=== PATIENT | female | born 1950 | race Caucasian/White ===

== ENCOUNTER → 2018-02-07 14:52 | Outpatient (CLI) | payer MEDICARE, SELFPAY ==
--- NOTE | 2018-02-07 15:03 | RAD_ITS ---
STUDY: X-RAY - ABDOMEN/PELVIS REASON FOR EXAM: Female, 67 years old. Kidney stones. TECHNIQUE: Two AP supine views of the abdomen and pelvis. Patient's bra is visible. COMPARISON: Radiographs of the abdomen dated November 06, 2017. FINDINGS: Normal visualized lung bases. There is an unremarkable bowel gas pattern. There is no demonstrated free abdominal air. There is no obvious organomegaly, mass, dilated bowel or pathologic calcifications. Normal soft tissue structures. There are degenerative changes of both hips. There is mild curvature of lumbar spine convexity towards the right. RAD/Abdomen Single View IMPRESSION: No radiographic evidence of acute intra-abdominal disease. Electronically Signed: Gloria Mclean MD at 7:35 EDT , Service support ,
[2018-02-07 15:46] LABS: Anion Gap 4 (5-15); BUN 15 mg/dL (7-18); BUN/Creat Ratio 21.9 RATIO (10-20); Calcium,Total 9.5 mg/dL (8.5-10.1); Chloride 106 mmol/L (98-107); Creatinine, Serum 0.68 mg/dL (0.55-1.02); EST Glomerular Filtration Rate 90 mL/min (>60); Est Glom Filt Rate - Afr Amer 109 mL/min (>60); Glucose 88 mg/dL (74-106); Potassium 3.7 mmol/L (3.5-5.1); Sodium Level 142 mmol/L (136-145)
== END ==
PROVIDERS: Family Provider Family Medicine Geriatric Medicine; PCP Family Medicine Geriatric Medicine; Visit Provider Urology
DX: Z87.442 Personal history of urinary calculi (principal)
CPT/HCPCS: 36415; 74018; 80048

== ENCOUNTER → 2018-03-14 12:15 | Outpatient (CLI) | payer MEDICARE, SELFPAY ==
--- NOTE | 2018-03-14 12:17 | BI_ITS ---
MAMMOGRAPHY - BILATERAL SCREENING REASON FOR EXAM: Female, 67 years old. Routine annual screening examination. PERTINENT HISTORY: Mother with breast cancer. TECHNIQUE: Digital bilateral breast david (3D mammographic acquisition) in the CC and MLO projections. 2-D mediolateral oblique (MLO) and craniocaudad (CC) views of both breasts were obtained. CAD: Full Field Digital Mammography with Computer Added Detection was performed. COMPARISON: Comparison is made with prior study dated August 12, 2015 and August 20, 2015. FINDINGS: Breast Composition: There are scattered areas of fibroglandular density. There are no dominant masses or suspicious calcifications. No other significant abnormalities are identified. There has been no significant change since the prior study. BI/SCREENING MAMM (CAD), BILAT IMPRESSION: Stable bilateral screening mammogram. Yearly follow-up mammogram recommended. (A) ASSESSMENT CATEGORY: BIRADS Category 1: Negative. A letter regarding these results will be sent to the patient by the facility within 30 days. Approximately 10% of breast cancers are not detected by mammography. A normal mammogram should not delay biopsy of a clinically suspicious abnormality. [id number] Electronically Signed: Kale Peralta MD at 13:22 EDT Tel [phone], Service support ,
--- NOTE | 2018-03-14 12:20 | BD_ITS ---
STUDY: DUAL ENERGY X-RAY ABSORPTIOMETRY / DXA REASON FOR EXAM: Female, 67 years old. Early menopause. Loss of height. TECHNIQUE: Bone Mineral Density (BMD) measurements of lumbar spine and bilateral hips were obtained. COMPARISON: Comparison is made with prior study dated July 12, 2011. FINDINGS: Lumbar Spine (L1-L4): g/cm2 (1.023) / T-score (-1.3) / Z-score (0.4) Findings are suggestive of osteopenia with a moderate fracture risk. Increased kyphosis. Left Femur Total: g/cm2 (0.733) / T-score (-2.2) / Z-score (-0.7) Left Femoral Neck: g/cm2 (0.722) / T-score (-2.3) / Z-score (-0.6) Right Femur Total: g/cm2 (0.724) / T-score (-2.3) / Z-score (-0.8) Right Femoral Neck: g/cm2 (0.75 to) / T-score (-2.1) / Z-score (-0.4) The T-Scores on the most recent prior examination were: Lumbar Spine (L1-L4): There has been improvement of bone density since the previous examination. Left Femur Total: which represents a worsening of 0.7%. Right Femur Total: which represents a worsening of 2.6%. BD/Dexa Bone Density Study IMPRESSION: The patient is considered osteopenic as outlined below according to World [employer] Organization (WHO) criteria with a moderate fracture risk. There has been worsening of bone density since the previous examination. Reference Information: The T-score is the number of standard deviations above or below the standard which is normal for young adults at their peak bone mineral density. The World Health Organization (WHO) interprets the T-scores as follows: Above -1 Normal bone density Between -1 and -2.5 Osteopenia Equal to / or below -2.5 Osteoporosis As a practical clinical guideline, osteopenia may be graded as follows: Mild -1 through -1.5 Moderate -1.6 through -2.0 Severe -2.1 through -2.4 The Z-score is the number of standard deviations above or below age-matched controls. A Z-score of less than -1.5 would be considered abnormal. References: 1. NIH Osteoporosis and Related Bone Diseases http://www.osteo.org 2. International Society for Clinical Densitometry http://www.iscd.org 3. National Osteoporosis Foundation http://www.nof.org Electronically Signed: Kale Peralta MD at 13:58 EDT Tel [phone], Service support ,
== END ==
PROVIDERS: Family Provider Family Medicine Geriatric Medicine; PCP Family Medicine Geriatric Medicine; Visit Provider Family Medicine Geriatric Medicine
DX: Z12.31 Encounter for screening mammogram for malignant neoplasm of breast (principal); Z78.0 Asymptomatic menopausal state; M85.80 Other specified disorders of bone density and structure, unspecified site
CPT/HCPCS: 77063; 77067; 77080

== ENCOUNTER → 2018-03-21 16:23 | Outpatient (CLI) | payer MEDICARE, SELFPAY ==
[2018-03-21 16:53] LABS: Absolute Lymphocyte Count 1.72 X10^3/ul (0.83-4.51); Absolute Neutrophil Count 2.7 X10^3/uL (2.0-7.7); Basophil# 0.01 X10^3/uL; Basophil% 0.2 % (0-1); Hemoglobin 12.9 g/dl (12.0-15.0); Lymphocyte # 1.72 X10^3/ul (4.0); Lymphocyte % 34.7 % (19-41); Mean Corp Hgb Conc 32.3 g/gl (32-36); Mean Corpuscular Hgb 31.3 pg (27.0-32.0); Mean Corpuscular Volume 97.1 fL (81-99); Mean Platelet Vol. 10.9 fl (6.2-12.0); Monocyte# 0.36 X10^3/uL; Monocyte% 7.3 % (0-10); Neutrophil # 2.67 X10^3/uL (2.7-7.7); Neutrophil % 53.8 % (47-70); Platelet Count 228 K/mm3 (150-450); RBC Distribution Width CV 13.3 % (11.6-14.6); RBC Distribution Width SD 46.1 fl (35.1-43.9); Red Blood Count 4.12 M/mm3 (4.2-5.4)
[2018-03-21 16:54] LABS: POSITIVE COUNT NO; POSITIVE DIFFERENTIAL NO; POSITIVE MORPHOLOGY NO
[2018-03-21 17:56] LABS: AST(SGOT) 20 U/L (15-37); Alanine Aminotransfer ALT/SGPT 27 U/L (13-56); Albumin, Serum 3.5 g/dL (3.2-5.0); Alkaline Phosphatase 105 U/L (45-117); Anion Gap 5 (5-15); BUN 14 mg/dL (7-18); BUN/Creat Ratio 21.1 RATIO (10-20); Calcium,Total 9.4 mg/dL (8.5-10.1); Chloride 108 mmol/L (98-107); Creatinine, Serum 0.66 mg/dL (0.55-1.02); EST Glomerular Filtration Rate 94 mL/min (>60); Est Glom Filt Rate - Afr Amer 113 mL/min (>60); Globulin 3.4 g/dL (2.2-4.2); Glucose 89 mg/dL (74-106); Potassium 3.9 mmol/L (3.5-5.1); Protein, Total 6.9 g/dL (6.4-8.2); Sodium Level 140 mmol/L (136-145); Thyroid Stim Hormone (TSH) 3.72 uIU/mL (0.358-3.74)
[2018-03-22 10:25] LABS: Vitamin D,25 Hydroxy 24.3 ng/mL (29.95-100.01)
== END ==
PROVIDERS: Family Provider Family Medicine Geriatric Medicine; PCP Family Medicine Geriatric Medicine; Visit Provider Family Medicine Geriatric Medicine
DX: I10 Essential (primary) hypertension (principal); E55.9 Vitamin D deficiency, unspecified
CPT/HCPCS: 36415; 80053; 82306; 84443; 85025

== ENCOUNTER → 2018-04-23 15:11 | Outpatient (CLI) | payer MEDICARE, SELFPAY ==
[2018-04-23 16:28] LABS: Absolute Lymphocyte Count 1.62 X10^3/ul (0.83-4.51); Absolute Neutrophil Count 3.6 X10^3/uL (2.0-7.7); Basophil# 0.01 X10^3/uL; Basophil% 0.2 % (0-1); Eosinophil# 0.12 X10^3/uL; Eosinophils% 2.1 % (0-5); Hemoglobin 14.7 g/dl (12.0-15.0); Lymphocyte # 1.62 X10^3/ul (4.0); Lymphocyte % 28.4 % (19-41); Mean Corp Hgb Conc 32.7 g/gl (32-36); Mean Corpuscular Hgb 31.9 pg (27.0-32.0); Mean Corpuscular Volume 97.6 fL (81-99); Mean Platelet Vol. 10.8 fl (6.2-12.0); Monocyte# 0.39 X10^3/uL; Monocyte% 6.8 % (0-10); Neutrophil # 3.56 X10^3/uL (2.7-7.7); Neutrophil % 62.3 % (47-70); POSITIVE COUNT NO; POSITIVE DIFFERENTIAL NO; POSITIVE MORPHOLOGY NO; Platelet Count 258 K/mm3 (150-450); RBC Distribution Width CV 13.7 % (11.6-14.6); Red Blood Count 4.61 M/mm3 (4.2-5.4); White Blood Count 5.7 K/mm3 (4.4-11.0)
[2018-04-23 16:49] LABS: Anion Gap 8 (5-15); BUN 16 mg/dL (7-18); BUN/Creat Ratio 18.9 RATIO (10-20); Calcium,Total 9.6 mg/dL (8.5-10.1); Chloride 103 mmol/L (98-107); Creatinine, Serum 0.84 mg/dL (0.55-1.02); EST Glomerular Filtration Rate 71 mL/min (>60); Est Glom Filt Rate - Afr Amer 86 mL/min (>60); Glucose 86 mg/dL (74-106); Potassium 3.9 mmol/L (3.5-5.1); Sodium Level 141 mmol/L (136-145)
== END ==
PROVIDERS: Family Provider Family Medicine Geriatric Medicine; PCP Family Medicine Geriatric Medicine; Visit Provider Family Medicine Geriatric Medicine
DX: I50.9 Heart failure, unspecified (principal); N39.0 Urinary tract infection, site not specified
CPT/HCPCS: 36415; 80048; 85025; 87077; 87086; 87088

== ENCOUNTER → 2018-04-23 18:14 | Outpatient (CLI) | payer MEDICARE, SELFPAY ==
--- NOTE | 2018-04-23 18:20 | RAD_ITS ---
STUDY: X-RAY - ABDOMEN/PELVIS REASON FOR EXAM: Female, 67 years old. Abdominal pain. TECHNIQUE: Four AP supine views of the abdomen and pelvis. COMPARISON: Two AP supine views of the abdomen and pelvis February 07, 2018. FINDINGS: Normal visualized lung bases. There is a nonspecific pattern of gas in nondistended segments of small bowel and colon. There is no demonstrated free abdominal air. The visualized liver, spleen and kidneys are grossly normal in size and morphology. There are calcified phleboliths in the pelvis. There are multilevel degenerative changes and a minor S-shaped scoliosis of the visualized lumbar spine. There are degenerative arthroses of the bilateral sacroiliac joints. RAD/Abd Inc Decub and/or Erect IMPRESSION: 1. Nonspecific bowel gas pattern. No free gas. 2. Minor S-shaped scoliosis of the lumbar spine, as well as degenerative changes of the spine and sacroiliac joints. Electronically Signed: Osmani Jasso MD at 19:22 EDT , Service support ,
== END ==
PROVIDERS: Family Provider Family Medicine Geriatric Medicine; PCP Family Medicine Geriatric Medicine; Visit Provider Family Medicine Geriatric Medicine
DX: R10.9 Unspecified abdominal pain (principal); I50.9 Heart failure, unspecified; N39.0 Urinary tract infection, site not specified
CPT/HCPCS: 36415; 74019; 80048; 85025; 87077; 87086; 87088; 87186

== ENCOUNTER → 2018-09-13 13:01 | Outpatient (CLI) | payer MEDICARE, SELFPAY | PROVIDERS: Family Provider Family Medicine Geriatric Medicine; PCP Family Medicine Geriatric Medicine; Referring Provider Family Medicine Geriatric Medicine; Visit Provider Family Medicine Geriatric Medicine | DX: R50.9 Fever, unspecified (principal) | CPT/HCPCS: 87633 ==

== ENCOUNTER → 2018-09-26 14:25 | Outpatient (CLI) | payer MEDICARE, SELFPAY ==
[2018-09-26 17:45] LABS: Absolute Lymphocyte Count 1.69 X10^3/ul (0.83-4.51); Absolute Neutrophil Count 4.8 X10^3/uL (2.0-7.7); Basophil# 0.02 X10^3/uL; Basophil% 0.3 % (0-1); Eosinophil# 0.18 X10^3/uL; Eosinophils% 2.4 % (0-5); Hematocrit 41.8 % (37-47); Hemoglobin 13.3 g/dl (12.0-15.0); Lymphocyte # 1.69 X10^3/ul (4.0); Mean Corp Hgb Conc 31.8 g/gl (32-36); Mean Corpuscular Hgb 31.5 pg (27.0-32.0); Mean Corpuscular Volume 99.1 fL (81-99); Mean Platelet Vol. 10.4 fl (6.2-12.0); Monocyte# 0.63 X10^3/uL; Monocyte% 8.6 % (0-10); Neutrophil # 4.83 X10^3/uL (2.7-7.7); Neutrophil % 65.6 % (47-70); Platelet Count 257 K/mm3 (150-450); RBC Distribution Width CV 12.9 % (11.6-14.6); RBC Distribution Width SD 46.7 fl (35.1-43.9); Red Blood Count 4.22 M/mm3 (4.2-5.4); White Blood Count 7.4 K/mm3 (4.4-11.0)
[2018-09-26 17:46] LABS: POSITIVE COUNT NO; POSITIVE DIFFERENTIAL NO; POSITIVE MORPHOLOGY NO
[2018-09-26 18:07] LABS: ALB/GLOB Ratio 1.1 RATIO (0.9-2.4); AST(SGOT) 17 U/L (15-37); Alanine Aminotransfer ALT/SGPT 24 U/L (13-56); Albumin, Serum 3.4 g/dL (3.2-5.0); Alkaline Phosphatase 98 U/L (45-117); Anion Gap 7 (5-15); BUN 19 mg/dL (7-18); BUN/Creat Ratio 26.5 RATIO (10-20); Calcium,Total 8.6 mg/dL (8.5-10.1); Chloride 106 mmol/L (98-107); Creatinine, Serum 0.72 mg/dL (0.55-1.02); EST Glomerular Filtration Rate 86 mL/min (>60); Est Glom Filt Rate - Afr Amer 103 mL/min (>60); Glucose 82 mg/dL (74-106); Potassium 3.7 mmol/L (3.5-5.1); Protein, Total 6.4 g/dL (6.4-8.2); Sodium Level 139 mmol/L (136-145); Thyroid Stim Hormone (TSH) 6.18 uIU/mL (0.358-3.74)
--- OUTSIDE RECORDS SUMMARY | 2018-11-21 20:02 | XMS RPT_ITS ---
:1950 Author Organization [place] Support Name Relationship Address Phone BUE Unavailable [address] [facility] [address] GERARD MCRAE Unavailable [address] + [place] [address] JOHN YATES Unavailable [address] + [place] [address] BUE Unavailable [address] + [address] [place] [address] GERARD MCRAE Unavailable [address] + [place] [address] JOHN YATES Unavailable [address] + [place] [address] BUE Unavailable [address] + [address] [place] [address] GERARD MCRAE Unavailable [address] + [place] [address] JOHN YATES Unavailable [address] + [place] [address] BUE Unavailable [address] + [address] [place] [address] GERARD MCRAE Unavailable [address] + [place] [address] CLIFTON YATES Unavailable [address] + [place] [address] BUE Unavailable [address] + [address] [facility] [address] GERARD MCRAE Unavailable [address] + [place] [address] CLIFTON YATES Unavailable [address] + [place] [address] BUE Unavailable [address] + [address] [place] [address] THOR, GERARD Unavailable [address] + [place] [address] CLIFTON YATES Unavailable [address] + [place] [address] BUE Unavailable [address] + [address] [place] [address] THOR, GERARD Unavailable [address] + [place] [address] CLIFTON YATES Unavailable [address] + [place] [address] BUE Unavailable [address] + [address] [place] [address] THOR, GERARD Unavailable [address] + [place] [address] CLIFTON YATES Unavailable [address] + [place] [address] BUE Unavailable [address] + [address] [place] [address] THOR, GERARD Unavailable [address] + [place] [address] CLIFTON YATES Unavailable [address] + [place] [address] BUE Unavailable [address] + [address] [place] [address] THOR, GERARD Unavailable [address] + [place] [address] CLIFTON YATES Unavailable [address] + [place] [address] BUE Unavailable [address] + [address] [place] [address] THOR GERARD Unavailable [address] + [place] [address] CLIFTON YATES Unavailable [address] + [place] [address] Care Team Providers Name Role Phone Kris Girish Winter Attending Unavailable Ishan, Olivier Chi Primary Care Unavailable KrisGirish Referring Unavailable Kris, Gómez Attending Unavailable Ishan, Olivier Chi Primary Care Unavailable Kris, Gómez Attending Unavailable Kris, Gómez Referring Unavailable Ishan, Olivier Chi Primary Care Unavailable Ishan, Olivier Chi Attending Unavailable Ishan, Olivier Chi Primary Care Unavailable Ishan, Olivier Chi Attending Unavailable Ishan, Olivier Chi Primary Care Unavailable Ishan, Olivier Chi Attending Unavailable Ishan, Olivier Chi Primary Care Unavailable Ishan, Olivier Chi Attending Unavailable Ishan, Olivier Chi Primary Care Unavailable Sondra Bhatia Attending Unavailable Moodispaw, Claude Referring Unavailable Ishan, Olivier Chi Attending Unavailable Ishan, Olivier Chi Referring Unavailable Ishan, Olivier Chi Primary Care Unavailable Ishan, Olivier Chi Attending Unavailable Ishan, Olivier Chi Primary Care Unavailable Claude Good Referring Unavailable Ishan, Olivier Chi Primary Care Unavailable Brandie, Jr Consulting Unavailable Brandie, Jr Admitting Unavailable Lori Avery Attending Unavailable Mario Marie D.O. Consulting Unavailable Claude Good Consulting Unavailable PROBLEMS PROBLEMS DATE TYPE CONDITION / CODE ATTENDING STATUS SOURCE 09/13/2018 Unknown R50.9 - Fever, Ishan, Olivier Chi Active [place] unspecified / Community R50.9(ICD-10) Hospital Repository 07/31/2018 Unknown I48.0 - Paroxysmal Bhatia, Active [place] atrial Sondra Ayers [facility] fibrillation / Hospital I48.0(ICD-10) Repository 07/31/2018 Unknown 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, Active [place] bundle-branch Sondra Ayers [facility] block, unspecified Hospital / I44.7(ICD-10) Repository 04/23/2018 Unknown I50.9 - Heart Ishan, Oliiver Chi Active [place] failure, Community unspecified / Hospital I50.9(ICD-10) Repository 03/14/2018 Unknown Z12.31 - Encounter Ishan, Olivier Chi Active [place] for screening Community mammogram for Hospital malignant neoplasm Repository of breast / Z12.31(ICD-10) 03/14/2018 Unknown Z78.0 - Ishan, Olivier Chi Active [place] Asymptomatic Community menopausal state / Hospital Z78.0(ICD-10) Repository 11/02/2017 Unknown Z87.442 - Personal Kris, Girish Active [place] history of urinary [place] Community calculi / Hospital Z87.442(ICD-10) Repository 11/16/2017 Unknown N13.6 - Sementi, Active [place] Pyonephrosis / Lori [facility] N13.6(ICD-10) Hospital Repository PROCEDURES PROCEDURES No Procedure Records FoundRESULTS RESULTS CBC W/DIFF, AUTOMATED Collected: 09/26/2018 Status: F Source: [place] 2:28 PM [facility] REPOSITORY TYPE CODE TESTS RESULT OUT OF RANGE REFERENCE UNITS LAB L100.1000 4.4-11.0 K/mm3 Normal WBC 7.4 LAB L100.1200 4.2-5.4 M/mm3 Normal RBC 4.22 LAB L100.1300 12.0-15.0 g/dl Normal HGB 13.3 LAB L100.1400 37-47 % Normal HCT 41.8 LAB L100.1500 81-99 fL High MCV 99.1 LAB L100.1600 27.0-32.0 pg Normal MCH 31.5 LAB L100.1700 32-36 g/gl Low MCHC 31.8 LAB L100.1810 11.6-14.6 % Normal RDW CV 12.9 LAB L100.1820 35.1-43.9 fl High RDW SD 46.7 LAB L100.1900 150-450 K/mm3 Normal PLT 257 LAB L100.2000 6.2-12.0 fl Normal MPV 10.4 LAB L100.2100 47-70 % Normal NEUT% 65.6 LAB L100.2200 19-41 % Normal LY% 23.0 LAB L100.2300 0-10 % Normal MONO% 8.6 LAB L100.2400 0-5 % Normal EO% 2.4 LAB L100.2500 0-1 % Normal BASO% 0.3 LAB L100.2550 0.0-0.9 % Normal IM GRAN % 0.100 Result Comment: IG% - Immature Granulocytes (promyelocytes, myelocytes and metamyelocytes) > 1% indicates that a LEFT SHIFT is Present. LAB L100.2620 2.0-7.7 X10 3/uL Normal Absolute Neut 4.8 LAB L100.2720 0.83-4.51 X10 3/ul Normal Absolute Lymph 1.69 Performed By: #### L100.0100 #### [facility] [address] [place], [address] VITAMIN D,25 HYDROXY Collected: 09/26/2018 Status: F Source: [place] 2:28 PM [facility] REPOSITORY TYPE CODE TESTS RESULT OUT OF REFERENCE UNITS RANGE LAB L506.1000 29.95-100.01 ng/mL Low Vitamin D 24.0 25-OH Result Comment: Vitamin D 25(OH) Status Range Deficiency <20 ng/mL (50nmol/L) Insuffciency 20 - 30 ng/mL (50 - 75 nmol/L) Sufficiency 30 - 100 ng/mL (75 - 250 nmol/L) Toxicity >100 ng/mL (>250 nmol/L) Performed By: #### L506.1000 #### [facility] [address] [facility] [place], [address] COMPREHENSIVE METABOLIC Collected: 09/26/2018 Status: F Source: [facility] 2:28 PM [facility] REPOSITORY TYPE CODE TESTS RESULT OUT OF RANGE REFERENCE UNITS LAB L501.0100 74-106 mg/dL Normal GLU 82 Result Comment: Please note revised GLUCOSE reference range effective 2017. LAB L501.1000 7-18 mg/dL High BUN 19 LAB L501.1100 0.55-1.02 mg/dL Normal CREAT,SERUM 0.72 Result Comment: The validity of the calculated GFR AND GFRAA in patients over 70 years has not been determined. Clinical correlation is essential. LAB L501.1110 >60 mL/min Normal EST GFR 86 Result Comment: Non- GFR Calc LAB L501.1115 >60 mL/min Normal EST GFR - AA 103 Result Comment: GFR Calc LAB L501.1300 10-20 RATIO High BUN/CRE 26.5 LAB L501.1500 6.4-8.2 g/dL T Normal PROT 6.4 LAB L501.1800 3.2-5.0 g/dL Normal ALB 3.4 LAB L501.1950 2.2-4.2 g/dL Normal GLOB 3.0 LAB L501.2000 0.9-2.4 RATIO Normal A/G 1.1 LAB L501.2200 8.5-10.1 mg/dL CA Normal 8.6 LAB L501.4100 15-37 U/L Normal AST 17 LAB L501.4305 45-117 U/L Normal ALK P 98 LAB L501.4405 13-56 U/L Normal ALT 24 LAB L501.4600 0.20-1.00 mg/dL T Normal BILI 0.40 LAB L501.5300 136-145 mmol/L NA Normal 139 LAB L501.5600 3.5-5.1 mmol/L K Normal 3.7 LAB L501.5900 98-107 mmol/L CL Normal 106 LAB L501.6100 21.0-32.0 mmol/L Normal CO2 26.0 LAB L501.6200 5-15 Normal GAP 7 Performed By: #### L500.4050, L501.9520 #### [facility] [address] [place], [place], [id number] THYROID STIM HORMONE Collected: 09/26/2018 Status: F Source: [place] (TSH) 2:28 PM [facility] REPOSITORY TYPE CODE TESTS RESULT OUT OF RANGE REFERENCE UNITS LAB L501.9520 0.358-3.74 uIU/mL High TSH 6.18 Performed By: #### L500.4050, L501.9520 #### [facility] [address] [place], [place], [address] Observed: 09/13/2018 Status: F Source: [place] RESPIRATORY PANEL 1:12 PM [facility] MOLECULAR REPOSITORY RP PANEL ADENOVIRUS Not Detected HUMAN METAPHNEUMO Not Detected INFLUENZA A Not Detected INFLUENZA A (SUBTYPE H1) Not Detected INFLUENZA A (SUBTYPE H3) Not Detected INFLUENZA B Not Detected PARAINFLUENZA 1 Not Detected PARAINFLUENZA 2 Not Detected PARAINFLUENZA 3 Not Detected PARAINFLUENZA 4 Not Detected RHINOVIRUS Not Detected RSV A Not Detected RSV B Not Detected NAAT METHOD Testing was performed using nucleic acid amplification Performed By: #### M100.638 #### [facility] [address] [place], [place], [id number] CARDIOLOGY VISIT Observed: 07/31/2018 Status: F Source: [place] REPORT 2:27 PM [facility] REPOSITORY [facility] [address] [place] [address] OFFICE VISIT Date of Service: 07/31/18 MR#: [id number] Acct: [id number] Name: AYDE YATES Rep #: [id number] : 1950 Provider: Sondra Bhatia Age/Sex: 68/F Location: [facility] Status: Signed HPI HPI Details: AYDE YATES, is a 68 F who presents to the office today for a cardiovascular follow-up. She has a history of paroxysmal atrial fibrillation. From a cardiac standpoint, patient is doing well. She does not have any chest discomfort/heaviness/tightness. Her exercise tolerance is stable for her age. She does not have any worsening symptoms of shortness of breath. She does not have any orthopnea. She denies PND. She does not have any symptoms of congestive heart failure. She does occasionally have palpitations, these do not last long. She does not have any lightheadedness or dizziness. She does not have any near-syncope or syncope. She does not have any lower extremity edema. She does not have any symptoms of claudication. 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 Accompanied by: None Is patient in pain?: No Allergies latex Allergy (Verified 07/31/18 13:43) Rash adhesive Adverse Reaction (Verified 07/31/18 13:43) Rash Medications Aspirin [Aspirin, Baby] 81 mg PO DAILY@0800 11/08/13 [History Confirmed 07/31/18] Levothyroxine [Synthroid] 112 mcg PO DAILY 11/08/13 [History Confirmed 07/31/18] Paroxetine HCl [Paxil] 20 mg PO QHS 12/05/13 [History Confirmed 07/31/18] diltiazem CD 120 mg capsule,extended release 24 hr 120 mg PO QDAY #90 cap 07/31/18 [Rx Confirmed 07/31/18] flecainide 100 mg tablet 100 mg PO BID #180 tab 07/31/18 [Rx Confirmed 07/31/18] PFSH Medical History Atrial fibrillation (Chronic) H/O: hysterectomy (Resolved) Left bundle branch block (Chronic) Mitral valve regurgitation (Chronic) Hypotension (Chronic) History of kidney stones (Resolved) Surgical History Hx of cholecystectomy (Resolved) H/O: section (Resolved) Hx of knee surgery (Resolved) Hx of foot surgery (Resolved) History of tonsillectomy (Resolved) History of lithotripsy (Resolved 10/2017) Family History Mother Hypertension Cancer Brother Colon cancer Sister Hypertension Daughter CAD (coronary artery disease) Social History Smoking Status: Former smoker how long ago did patient quit smokin years ago alcohol intake: current alcohol intake frequency: a few times a month caffeine: Yes Type: coffee Number of servings: 2 ROS Const Const: Negative for weakness, fatigue, fever(s) or headache(s) Eyes Eyes: Negative for blind spots, loss of peripheral vision or transient loss of vision ENT ENT: Negative for headache(s), dizziness, tinnitus or Nosebleed/epistaxis Cardio Chest Pain: No Palpitations: Yes Edema: None Muscle aches with walking: None Resp Respiratory: Negative for SOB with activity, SOB at rest, SOB orthopnea\SOB lying down or Cough GI GI: Negative nausea, vomiting, heartburn or vomiting blood/hematemesis : Negative for hematuria Musc Musc: Negative for muscle aches/ myalgia Neuro Neuro: Negative for weakness, headache(s), dizziness, near syncope, syncope, lightheadedness or orthostatic symptoms Kirby Hematologic/Lymphatic: Negative for easy bleeding Endo Endo: Negative for fatigue Cardiology Exam Const Appearance: cooperative, no acute distress and well developed Orientation: alert, awake and oriented x3 Head Head: normocephalic and atraumatic Mouth: moist mucous membranes Eyes General: appearance normal, both eyes and all related structures Conjunctivae: conjunctivae normal Pupils: PERRL EOM: EOM intact bilaterally Neck Neck: normal visual inspection, no lymphadenopathy and no JVD Carotids: Negative bruit Neck Mass: Negative Neck mass Chest Chest inspection: normal inspection of the chest and symmetric chest movement Auscultation: Bilateral: Clear to Auscultation Cardio Palpation: normal PMI Rate: regular rate Rhythm: regular rhythm Heart sounds: S1 normal and S2 normal; negative rub, gallop or murmur GI GI: normal to inspection, soft, no hepatosplenomegaly and bowel sounds present; negative tender Neuro General: alert, awake, oriented x3, CN's II-XI intact bilaterally and moves all extremities Extremities Pulses: Normal: Right Posterior Tibial Pulse, Left Posterior Tibial Pulse, Right Radial Pulse, Left Radial Pulse Lower Extremity Edema: None: Bilateral wearing bilateral leg braces on ankles Psych Psychological: normal affect Supplemental Info Echocardiogram in 2013 demonstrates an ejection fraction of 60%. Mild concentric LVH. Left atrium mildly enlarged. Mild diffuse mitral valve thickening. Mild mitral valve prolapse. Mild mitral and tricuspid insufficiency. RVSP 31 mmHg. Assessment AND Plan 1. Paroxysmal atrial fibrillation I48.0 Plan Patient has not had any symptomatic recurrence. She will continue with her flecainide and her diltiazem. She will continue with her aspirin. If she has any further recurrence may need to reconsider anticoagulation. 2. Left bundle branch block I44.7 Plan Stable, will continue to monitor. Plan Detail Other Medications Refilled: Additional Comments Thank you for allowing us to participate in patient's plan of care, if you have any questions please do not hesitate to call. This note was generated using a voice recognition system and there may be incorrect words, spelling or punctuation errors that were not noted when reviewing the office note prior to saving. Follow Up 1 Year (PFM) Coding Level of Care Code Off vis,est,level 3 Diagnoses Paroxysmal atrial fibrillation I48.0 Atrial fibrillation type: paroxysmal Left bundle branch block I44.7 Coding Level of Care Code Off vis,est,level 3 Diagnoses Paroxysmal atrial fibrillation I48.0 Atrial fibrillation type: paroxysmal Left bundle branch block I44.7 07/31/18 1427 <Electronically signed by Sondra CHAND> Date Sondra CHAND Cosigner Signature: Date (if applicable) CC: ABD INC DECUB Observed: 04/23/2018 Status: F Source: [place] AND/OR ERECT 6:17 PM [facility] REPOSITORY [facility] Imaging Services [address] [place] [address] Abd Inc Decub and/or Erect MR#: [id number] Acct: [id number] Name: AYDE YATES Rep #: [id number] : 1950 F 67 From: Jm Jasso MD PCP: Olivier Olmstead MD, Chi Status: REG CLI Study: Abd Inc Decub and/or Erect Date of Exam: 04/23/18 Exam# [id number] Ordering Dr: Olivier Olmstead MD STUDY: X-RAY - ABDOMEN/PELVIS REASON FOR EXAM: Female, 67 years old. Abdominal pain. TECHNIQUE: Four AP supine views of the abdomen and pelvis. COMPARISON: Two AP supine views of the abdomen and pelvis February 07, 2018. FINDINGS: Normal visualized lung bases. There is a nonspecific pattern of gas in nondistended segments of small bowel and colon. There is no demonstrated free abdominal air. The visualized liver, spleen and kidneys are grossly normal in size and morphology. There are calcified phleboliths in the pelvis. There are multilevel degenerative changes and a minor S-shaped scoliosis of the visualized lumbar spine. There are degenerative arthroses of the bilateral sacroiliac joints. RAD/Abd Inc Decub and/or Erect IMPRESSION: 1. Nonspecific bowel gas pattern. No free gas. 2. Minor S-shaped scoliosis of the lumbar spine, as well as degenerative changes of the spine and sacroiliac joints. Electronically Signed: Osmani Jasso MD at 19:22 EDT , Service support , CC: Olivier Olmstead MD Clinical Lab Technologist: Signed CBC W/DIFF, AUTOMATED Collected: 04/23/2018 Status: F Source: [place] 3:12 PM [facility] REPOSITORY TYPE CODE TESTS RESULT OUT OF RANGE REFERENCE UNITS LAB L100.1000 4.4-11.0 K/mm3 Normal WBC 5.7 LAB L100.1200 4.2-5.4 M/mm3 Normal RBC 4.61 LAB L100.1300 12.0-15.0 g/dl Normal HGB 14.7 LAB L100.1400 37-47 % Normal HCT 45.0 LAB L100.1500 81-99 fL Normal MCV 97.6 LAB L100.1600 27.0-32.0 pg Normal MCH 31.9 LAB L100.1700 32-36 g/gl Normal MCHC 32.7 LAB L100.1810 11.6-14.6 % Normal RDW CV 13.7 LAB L100.1820 35.1-43.9 fl High RDW SD 48.0 LAB L100.1900 150-450 K/mm3 Normal PLT 258 LAB L100.2000 6.2-12.0 fl Normal MPV 10.8 LAB L100.2100 47-70 % Normal NEUT% 62.3 LAB L100.2200 19-41 % Normal LY% 28.4 LAB L100.2300 0-10 % Normal MONO% 6.8 LAB L100.2400 0-5 % Normal EO% 2.1 LAB L100.2500 0-1 % Normal BASO% 0.2 LAB L100.2550 0.0-0.9 % Normal IM GRAN % 0.200 Result Comment: IG% - Immature Granulocytes (promyelocytes, myelocytes and metamyelocytes) > 1% indicates that a LEFT SHIFT is Present. LAB L100.2620 2.0-7.7 X10 3/uL Normal Absolute Neut 3.6 LAB L100.2720 0.83-4.51 X10 3/ul Normal Absolute Lymph 1.62 Performed By: #### L100.0100 #### [facility] [address] [place], [address] BASIC METABOLIC Collected: 04/23/2018 Status: F Source: [place] PROFILE (BMP) 3:12 PM [facility] REPOSITORY TYPE CODE TESTS RESULT OUT OF RANGE REFERENCE UNITS LAB L501.0100 74-106 mg/dL Normal GLU 86 Result Comment: Please note revised GLUCOSE reference range effective 2017. LAB L501.1000 7-18 mg/dL Normal BUN 16 LAB L501.1100 0.55-1.02 mg/dL Normal CREAT,SERUM 0.84 Result Comment: The validity of the calculated GFR AND GFRAA in patients over 70 years has not been determined. Clinical correlation is essential. LAB L501.1110 >60 mL/min Normal EST GFR 71 Result Comment: Non- GFR Calc LAB L501.1115 >60 mL/min Normal EST GFR - AA 86 Result Comment: GFR Calc LAB L501.1300 10-20 RATIO Normal BUN/CRE 18.9 LAB L501.2200 8.5-10.1 mg/dL CA Normal 9.6 LAB L501.5300 136-145 mmol/L NA Normal 141 LAB L501.5600 3.5-5.1 mmol/L K Normal 3.9 LAB L501.5900 98-107 mmol/L CL Normal 103 LAB L501.6100 21.0-32.0 mmol/L Normal CO2 30.0 LAB L501.6200 5-15 Normal GAP 8 Performed By: #### L500.2500 #### [facility] [address] [place], [place], [address] Observed: 04/23/2018 Status: F Source: [place] CULTURE, URINE 3:12 PM [facility] REPOSITORY Urine Culture ORGANISM 1: Escherichia coli [place] Count >100,000 Escherichia coli: REACTION Amikacin $ <=2 S Amoxacillin/Clavulanic Acid $ 4 S Ampicillin $ 8 S Ampicillin/Sulbactam $ 4 S Aztreonam $$$ <=1 S Cefazolin $ <=4 S Cefepime $ <=1 S Ceftriaxone $ <=1 S Ciprofloxacin $ >=4 R ESBL - Ertapenim $$$ <=0.5 S Gentamicin $ <=1 S Imipenem *NF <=0.25 S Levofloxacin $ >=8 R Meropenem $ <=0.25 S Nitrofurantoin $ <=16 S Piperacillin/Tazobactam $$ <=4 S Tobramycin $ <=1 S Trimethoprim/Sulfametho $ <=20 S (NF) indicates non-formulary drug at [facility]. Approval by Infectious Disease Specialist required before non-formulary drugs may be ordered and/or dispensed. Performed By: #### M100.0650 #### [facility] [place] [address], [address] CBC W/DIFF, AUTOMATED Collected: 03/21/2018 Status: F Source: [place] 4:24 PM [facility] REPOSITORY TYPE CODE TESTS RESULT OUT OF RANGE REFERENCE UNITS LAB L100.1000 4.4-11.0 K/mm3 Normal WBC 5.0 LAB L100.1200 4.2-5.4 M/mm3 Low RBC 4.12 LAB L100.1300 12.0-15.0 g/dl Normal HGB 12.9 LAB L100.1400 37-47 % Normal HCT 40.0 LAB L100.1500 81-99 fL Normal MCV 97.1 LAB L100.1600 27.0-32.0 pg Normal MCH 31.3 LAB L100.1700 32-36 g/gl Normal MCHC 32.3 LAB L100.1810 11.6-14.6 % Normal RDW CV 13.3 LAB L100.1820 35.1-43.9 fl High RDW SD 46.1 LAB L100.1900 150-450 K/mm3 Normal PLT 228 LAB L100.2000 6.2-12.0 fl Normal MPV 10.9 LAB L100.2100 47-70 % Normal NEUT% 53.8 LAB L100.2200 19-41 % Normal LY% 34.7 LAB L100.2300 0-10 % Normal MONO% 7.3 LAB L100.2400 0-5 % Normal EO% 4.0 LAB L100.2500 0-1 % Normal BASO% 0.2 LAB L100.2550 0.0-0.9 % Normal IM GRAN % 0.000 Result Comment: IG% - Immature Granulocytes (promyelocytes, myelocytes and metamyelocytes) > 1% indicates that a LEFT SHIFT is Present. LAB L100.2620 2.0-7.7 X10 3/uL Normal Absolute Neut 2.7 LAB L100.2720 0.83-4.51 X10 3/ul Normal Absolute Lymph 1.72 Performed By: #### L100.0100 #### [facility] [place], [address] COMPREHENSIVE METABOLIC Collected: 03/21/2018 Status: F Source: [place] DUKES 4:24 PM [facility] REPOSITORY TYPE CODE TESTS RESULT OUT OF RANGE REFERENCE UNITS LAB L501.0100 74-106 mg/dL Normal GLU 89 Result Comment: Please note revised GLUCOSE reference range effective 2017. LAB L501.1000 7-18 mg/dL Normal BUN 14 LAB L501.1100 0.55-1.02 mg/dL Normal CREAT,SERUM 0.66 Result Comment: The validity of the calculated GFR AND GFRAA in patients over 70 years has not been determined. Clinical correlation is essential. LAB L501.1110 >60 mL/min Normal EST GFR 94 Result Comment: Non- GFR Calc LAB L501.1115 >60 mL/min Normal EST GFR - AA 113 Result Comment: GFR Calc LAB L501.1300 10-20 RATIO High BUN/CRE 21.1 LAB L501.1500 6.4-8.2 g/dL T Normal PROT 6.9 LAB L501.1800 3.2-5.0 g/dL Normal ALB 3.5 LAB L501.1950 2.2-4.2 g/dL Normal GLOB 3.4 LAB L501.2000 0.9-2.4 RATIO Normal A/G 1.0 LAB L501.2200 8.5-10.1 mg/dL CA Normal 9.4 LAB L501.4100 15-37 U/L Normal AST 20 LAB L501.4305 45-117 U/L Normal ALK P 105 LAB L501.4405 13-56 U/L Normal ALT 27 LAB L501.4600 0.20-1.00 mg/dL T Normal BILI 0.30 LAB L501.5300 136-145 mmol/L NA Normal 140 LAB L501.5600 3.5-5.1 mmol/L K Normal 3.9 LAB L501.5900 98-107 mmol/L High CL 108 LAB L501.6100 21.0-32.0 mmol/L Normal CO2 27.0 LAB L501.6200 5-15 Normal GAP 5 Performed By: #### L500.4050, L501.9520 #### [facility] [address] [facility] [place], [address] THYROID STIM HORMONE Collected: 03/21/2018 Status: F Source: [place] (TSH) 4:24 PM [facility] REPOSITORY TYPE CODE TESTS RESULT OUT OF RANGE REFERENCE UNITS LAB L501.9520 0.358-3.74 uIU/mL Normal TSH 3.72 Performed By: #### L500.4050, L501.9520 #### [facility] [address] [place], [address] VITAMIN D,25 HYDROXY Collected: 03/21/2018 Status: F Source: [place] 4:24 PM [facility] REPOSITORY TYPE CODE TESTS RESULT OUT OF REFERENCE UNITS RANGE LAB L506.1000 29.95-100.01 ng/mL Low Vitamin D 24.3 25-OH Result Comment: Vitamin D 25(OH) Status Range Deficiency <20 ng/mL (50nmol/L) Insuffciency 20 - 30 ng/mL (50 - 75 nmol/L) Sufficiency 30 - 100 ng/mL (75 - 250 nmol/L) Toxicity >100 ng/mL (>250 nmol/L) Performed By: #### L506.1000 #### [facility] [address] [place], [address] SCREENING MAMM (CAD), Observed: 03/14/2018 Status: F Source: [place] BILAT 12:17 PM [facility] REPOSITORY [facility] Imaging Services [address] [place] [address] [place] [address] SCREENING MAMM (CAD), BILAT MR#: [id number] Acct: [id number] Name: AYDE YATES Rep #: [id number] : 1950 F 67 From: Kale Peralta MD PCP: Olivier lOmstead MD, Chi Status: REG [facility] Study: SCREENING MAMM (CAD), BILAT Date of Exam: 03/14/18 Exam# [id number] Ordering Dr: Olivier Olmstead MD MAMMOGRAPHY - BILATERAL SCREENING REASON FOR EXAM: Female, 67 years old. Routine annual screening examination. PERTINENT HISTORY: Mother with breast cancer. TECHNIQUE: Digital bilateral breast david (3D mammographic acquisition) in the CC and MLO projections. 2-D mediolateral oblique (MLO) and craniocaudad (CC) views of both breasts were obtained. CAD: Full Field Digital Mammography with Computer Added Detection was performed. COMPARISON: Comparison is made with prior study dated August 12, 2015 and August 20, 2015. FINDINGS: Breast Composition: There are scattered areas of fibroglandular density. There are no dominant masses or suspicious calcifications. No other significant abnormalities are identified. There has been no significant change since the prior study. BI/SCREENING MAMM (CAD), BILAT IMPRESSION: Stable bilateral screening mammogram. Yearly follow-up mammogram recommended. (A) ASSESSMENT CATEGORY: BIRADS Category 1: Negative. A letter regarding these results will be sent to the patient by the facility within 30 days. Approximately 10% of breast cancers are not detected by mammography. A normal mammogram should not delay biopsy of a clinically suspicious abnormality. [id number] Electronically Signed: Kale Peralta MD at 13:22 EDT Tel [phone], Service support , CC: Olivier Olmstead MD Clinical Lab Technologist: Signed DEXA BONE DENSITY Observed: 03/14/2018 Status: F Source: [place] STUDY 12:17 PM [facility] REPOSITORY [facility] Imaging Services [address] [place] [address] Dexa Bone Density Study MR#: [id number] Acct: [id number] Name: AYDE YATES Rep #: [id number] : 1950 F 67 From: Kale Peralta MD PCP: Olivier Olmstead MD, Chi Status: REG CLI Study: Dexa Bone Density Study Date of Exam: 03/14/18 Exam# [id number] Ordering Dr: Olivier Olmstead MD STUDY: DUAL ENERGY X-RAY ABSORPTIOMETRY / DXA REASON FOR EXAM: Female, 67 years old. Early menopause. Loss of height. TECHNIQUE: Bone Mineral Density (BMD) measurements of lumbar spine and bilateral hips were obtained. COMPARISON: Comparison is made with prior study dated July 12, 2011. FINDINGS: Lumbar Spine (L1-L4): g/cm2 (1.023) / T-score (-1.3) / Z-score (0.4) Findings are suggestive of osteopenia with a moderate fracture risk. Increased kyphosis. Left Femur Total: g/cm2 (0.733) / T-score (-2.2) / Z- score (-0.7) Left Femoral Neck: g/cm2 (0.722) / T-score (-2.3) / Z- score (-0.6) Right Femur Total: g/cm2 (0.724) / T-score (-2.3) / Z- score (-0.8) Right Femoral Neck: g/cm2 (0.75 to) / T-score (-2.1) / Z-score (-0.4) The T-Scores on the most recent prior examination were: Lumbar Spine (L1-L4): There has been improvement of bone density since the previous examination. Left Femur Total: which represents a worsening of 0.7%. Right Femur Total: which represents a worsening of 2.6%. BD/Dexa Bone Density Study IMPRESSION: The patient is considered osteopenic as outlined below according to World Tavon Organization (WHO) criteria with a moderate fracture risk. There has been worsening of bone density since the previous examination. Reference Information: The T-score is the number of standard deviations above or below the standard which is normal for young adults at their peak bone mineral density. The World Health Organization (WHO) interprets the T-scores as follows: Above -1 Normal bone density Between -1 and -2.5 Osteopenia Equal to / or below -2.5 Osteoporosis As a practical clinical guideline, osteopenia may be graded as follows: Mild -1 through -1.5 Moderate -1.6 through -2.0 Severe -2.1 through -2.4 The Z-score is the number of standard deviations above or below age-matched controls. A Z-score of less than -1.5 would be considered abnormal. References: 1. NIH Osteoporosis and Related Bone Diseases http://www.osteo.org 2. International Society for Clinical Densitometry http://www.iscd.org 3. National Osteoporosis Foundation http://www.nof.org Electronically Signed: Kale Peralta MD at 13:58 EDT Tel [phone], Service support , CC: Olivier Olmstead MD Clinical Lab Technologist: Signed ABDOMEN SINGLE VIEW Observed: 02/07/2018 Status: F Source: [place] 3:03 PM [facility] REPOSITORY [facility] Imaging Services [address] [place] [address] Abdomen Single View MR#: [id number] Acct: [id number] Name: AYDE YATES Rep #: [id number] : 1950 F 67 From: Gloria Reynoso MD PCP: Olivier Olmstead MD, Chi Status: REG CLI Study: Abdomen Single View Date of Exam: 02/07/18 Exam# [id number] Ordering Dr: Girish Ponce MD STUDY: X-RAY - ABDOMEN/PELVIS REASON FOR EXAM: Female, 67 years old. Kidney stones. TECHNIQUE: Two AP supine views of the abdomen and pelvis. Patient's bra is visible. COMPARISON: Radiographs of the abdomen dated November 06, 2017. FINDINGS: Normal visualized lung bases. There is an unremarkable bowel gas pattern. There is no demonstrated free abdominal air. There is no obvious organomegaly, mass, dilated bowel or pathologic calcifications. Normal soft tissue structures. There are degenerative changes of both hips. There is mild curvature of lumbar spine convexity towards the right. RAD/Abdomen Single View IMPRESSION: No radiographic evidence of acute intra-abdominal disease. Electronically Signed: Gloria Reynoso MD at 7:35 EDT , Service support , CC: Girish Ponce MD; Olivier Olmstead MD Clinical Lab Technologist: Signed BASIC METABOLIC Collected: 02/07/2018 Status: F Source: [place] PROFILE ([facility]) 3:01 PM [facility] REPOSITORY TYPE CODE TESTS RESULT OUT OF RANGE REFERENCE UNITS LAB L501.0100 74-106 mg/dL Normal GLU 88 Result Comment: Please note revised GLUCOSE reference range effective 2017. LAB L501.1000 7-18 mg/dL Normal BUN 15 LAB L501.1100 0.55-1.02 mg/dL Normal CREAT,SERUM 0.68 Result Comment: The validity of the calculated GFR AND GFRAA in patients over 70 years has not been determined. Clinical correlation is essential. LAB L501.1110 >60 mL/min Normal EST GFR 90 Result Comment: Non- GFR Calc LAB L501.1115 >60 mL/min Normal EST GFR - AA 109 Result Comment: GFR Calc LAB L501.1300 10-20 RATIO High BUN/CRE 21.9 LAB L501.2200 8.5-10.1 mg/dL CA Normal 9.5 LAB L501.5300 136-145 mmol/L NA Normal 142 LAB L501.5600 3.5-5.1 mmol/L K Normal 3.7 LAB L501.5900 98-107 mmol/L CL Normal 106 LAB L501.6100 21.0-32.0 mmol/L Normal CO2 32.0 LAB L501.6200 5-15 Low GAP 4 Performed By: #### L500.2500 #### [facility] [address] [place], [address] ABDOMEN SINGLE VIEW Observed: 11/06/2017 Status: F Source: [place] 2:11 PM [facility] REPOSITORY [facility] Imaging Services [address] [place] [address] Abdomen Single View MR#: [id number] Acct: [id number] Name: AYDE YATES Rep #: [id number] : 1950 F 67 From: Nilesh Maldonado DO PCP: Olivier Olmstead MD, Chi Status: REG CLI Study: Abdomen Single View Date of Exam: 11/06/17 Exam# [id number] Ordering Dr: Girish Ponce MD STUDY: X-RAY - ABDOMEN/PELVIS REASON FOR EXAM: Female, 67 years old. Left sided kidney stone. TECHNIQUE: Two AP supine views of the abdomen and pelvis. COMPARISON: Abdomen, October 14, 2017. FINDINGS: The lung bases are not included. There is an unremarkable bowel gas pattern. There is no demonstrated free abdominal air. The visualized liver, spleen and kidneys are grossly normal in size and morphology. There is a left ureteral stent now present. The large calcification lateral to the L2 vertebral body is no longer seen. There are no other suspicious calcifications present. There are stable phleboliths in the right pelvis. No visualized osseous changes. RAD/Abdomen Single View IMPRESSION: Left ureteral stent with absence of the UPJ calculus noted on the earlier study. Electronically Signed: Nilesh Maldonado DO at 9:21 EST Tel [phone], Service support , CC: Girish Ponce MD; Olivier Olmstead MD Clinical Lab Technologist: Signed OPERATIVE REPORT Observed: 11/02/2017 Status: F Source: [place] 1:31 PM [facility] REPOSITORY [facility] Medical Records Department [address] [place] [address] Operative Report 11/02/17 1328 MR#: [id number] Acct: [id number] Name: AYDE YATES Rep #: [id number] : 1950 67 From: Girish Ponce MD PCP: Ishan RHODES,Olviier Devries Status: REG SDC Y Location: [place] [address] Problem List (1) Calculus of left kidney Status: Acute Report of Operation Date of Procedure: 11/02/17 Pre-Operative Diagnosis: Left kidney stone status post stent from recent infection Post-Operative Diagnosis: Same Surgery/Procedure Performed:: Cystoscopy and left stent change and left extracorporeal shockwave lithotripsy Description of Surgical Findings:: 67-year-old female was taken back to the operating room after smooth induction o general anesthesia she was placed supine on the lithotripter table we then located the stone in the upper f to mid pole of the left kidney and she underwent shockwave lithotripsy for the stone after total treatment of 3000 shockwaves the stone had broken up and the little tiny pieces no visible fragments left on x-ray. The existing stent was a little bit out of position so decided to change a new stent plus was given her a lot of pain and discomfort because of starting to encrust. The patient was repositioned the urethra and vaginal area were prepped and draped in usual sterile fashion I went into the bladder with a 21 Maur[place]ian rigid cystoscope through the urethra and I grabbed the existing stent pulled out the meatus cut the stent and then advanced a wire through the stent and then over the wire backloaded the stent and the scope in place a new stent up into the left kidney. I left the string on the stent for easy extraction in the office in a few days. She has an appointment next week for me to see me with a KUB and then will get stent out on a string. Type of Anesthesia:: General Drains: left stent - Admit VTE Documentation VTE Present on Admission: No VTE Mechan Device Prophylaxis: SCD's VTE Pharm Prophylaxis ordered?: No Reason prophylaxis not ordered:: Treatment Not Indicated 11/02/17 1331 <Electronically signed by Girish Ponce MD> Date Girish Ponce MD CC: Girish Ponce MD; Olivier Olmstead MD Signed DISCHARGE INSTRUCTION Observed: 11/02/2017 Status: F Source: [place] 12:35 PM [facility] REPOSITORY [facility] Medical Records Department [address] [place] [address] Instructions for Home/Discharge Instructions 11/02/17 1234 MR#: [id number] Acct: [id number] Name: AYDE YATES Rep #: [id number] : 1950 67 From: Girish Ponce MD PCP: Olivier Olmstead MD, Chi Status: REG SDC Discharge Diet: No Restrictions Discharge Activity: Return to Normal Activity Call your doctor if your incision/area has: Continuous Slow Oozing, Sudden Increased Bleeding, Increased Pain/ Swelling, Increased Redness, Foul Smelling Discharge, Swelling at the incision site Suture Line Care: Avoid Pulling/Pushing, Avoid Pinching/Bending Allergies/Adverse Reactions: Allergies latex Allergy (Verified 11/01/17 09:56) Rash adhesive Adverse Reaction (Verified 10/14/17 13:20) Rash Medications to take at Discharge Aspirin [Aspirin, Baby] 81 mg PO DAILY@0800 11/08/13 Flecainide [Tambocor] 100 mg PO BID 11/08/13 Levothyroxine [Synthroid] 112 mcg PO DAILY 11/08/13 Paroxetine HCl [Paxil] 20 mg PO QHS 12/05/13 Diltiazem CD [Cardizem CD] 120 mg PO DINNER 06/04/14 Ciprofloxacin [Cipro] 500 mg PO BID #6 tab 11/02/17 Ciprofloxacin [Cipro] 500 mg PO BID #6 tab 11/02/17 Hydrocodone Bitart/Apap 5-325 [[place] 5MG-325MG] 1 tab PO Q4H PRN PRN #14 tab 11/02/17 Hydrocodone/Acetaminophen [[place] 5-325 Tablet] 1 ea PO Q4H PRN PRN #14 tab 11/02/17 The following prescriptions were given: Hydrocodone Bitart/Apap 5-325 [[place] 5MG-325MG] 1 tab PO Q4H PRN PRN #14 tab PRN Reason: Pain Hydrocodone/Acetaminophen [[place] 5-325 Tablet] 1 ea PO Q4H PRN PRN #14 tab PRN Reason: Pain Ciprofloxacin [Cipro] 500 mg PO BID #6 tab Ciprofloxacin [Cipro] 500 mg PO BID #6 tab Orders to be completed after discharge: Abdomen Single View [RAD] Time Frame: 1 Week, Location: None Selected Primary Care Physician: Olivier Olmstead Chi, MD [Primary Care Provider] - Please Follow Up With: Girish Ponce MD When: Appt, SundayNov 06 at 2:45 pm, get xray first. 11/02/17 1235 <Electronically signed by Girish Ponce MD> Date Girish Ponce MD CC: Olivier Olmsetad MD DISCHARGE SUMMARY Observed: 10/29/2017 Status: F Source: [place] 6:00 PM [facility] REPOSITORY [facility] Medical Records Department [address] [place] [address] Discharge Summary 10/18/17 1622 MR#: [id number] Acct: [id number] Name: AYDE YATES Rep #: [id number] : 1950 67 From: Andria Avery DO PCP: Olivier Olmstead MD, Chi Status: DIS IN Y Location: [place] [address] Discharge Date and Diagnosis Date of Admission: 10/14/17 Date of Discharge: 10/18/17 - Primary Discharge Diagnosis Active and Suspected Problems Severe sepsis (Acute) due to pyelonephritis Acute kidney injury (Acute) Pyelonephritis (Acute) Hydronephrosis Left ureteral calculus, 1.5 cm (Acute) impacted at the UPJ Hypotension (Acute) -resolved with hydration - Secondary Discharge Diagnosis Chronic Problems Left bundle branch block (Chronic) Narzzxg-Dqgnt-Ohfzo disease (Chronic) Depression (Chronic) Hypothyroidism (Chronic) Atrial flutter (Chronic) Mitral valve regurgitation (Chronic) Hospital Course and Treatment Imaging Results: Clinical Impression(s) from Imaging Studies Abdomen/Pelvis CT 10/14/17 13:55 IMPRESSION: 0.8 x 1.5 cm left UPJ calculus with moderate hydronephrosis. Diverticulosis. Cholecystectomy. Electronically Signed: Lily Love MD at 15:11 EST Tel , Service support , KUB X-Ray 10/14/17 17:22 IMPRESSION: There is a stable left ureteropelvic junction calculus. Electronically Signed: Allison Morgan MD at 18:28 EST cf, Service support , Chest X-Ray 10/15/17 07:49 IMPRESSION: Moderate cardiomegaly with pulmonary vascular congestion and a small left pleural effusion consistent with mild CHF. No complications noted following right jugular line placement Electronically Signed: Edmundo Broderick MD, FACR at 8:59 EST , Service support , Chest X-Ray 10/16/17 10:19 IMPRESSION: Progressive atelectasis and/or infiltration at the left lung base with small left effusion. Blunting of the right costophrenic angle with right basilar atelectasis. Electronically Signed: Kale Peralta MD at 11:08 EST Tel [phone], Service support , Laboratory Results - last 24 hr WBC 4.9 RBC 2.95 L Hgb 9.6 L Hct 29.6 L MCV 100.3 H MCH 32.[address] Claude Kingsley-urology Dr. Mario Marie-acid dumper Dr. Claude Good-cardiology Operations: None Procedures: - - Cystoscopy with placement of left ureteral stent on 10/15/[address] Claude Kingsley Summary of Care Provided: Patient is a 67-year-old female with a past medical history of nephrolithiasis, atrial flutter, depression, hypothyroidism and Fhlubjw-Blxfy-Czdvi disease presented to the [facility] emergency room on 10/14 complaining of sudden onset of left flank and left upper quadrant pain. CT scan of the abdomen and pelvis showed a 0.8 x 1.5 cm left UPJ calculus with moderate hydronephrosis, diverticulosis and prior cholecystectomy. She was admitted by Dr. Kingsley to a medical surgical floor and started on cefazolin. Hospitalist service was consulted late in the evening for hypotension. Blood pressure was 68/42 and the patient was transferred to the intensive care unit. BP corrected with 2 L of IVF. The antibiotic was changed to Rocephin for better GM neg coverage. The following day she was taken to the OR by Dr. Kingsley for cystoscopy and left ureteral stent placement. Operative report specifically mentioned that the urine collected after the stent was passed was purulent in appearance and odiferous. Postoperatively she was transferred to the intensive care unit and remained stable. Was transferred to PCU on 10/16. Blood and urine cultures were positive for E. coli and Klebsiella pneumoniae. His results became available on 10/17 and the E. coli was resistant to both cefazolin and Rocephin. The antibiotic was changed to ciprofloxacin. Both the Klebsiella and the E. coli were sensitive to fluoroquinolones. She was discharged home on 10/18 with prescriptions for ciprofloxacin 500 mg twice daily for 9 days to finish 14 days of treatment for severe sepsis with bacteremia due to pyelonephritis due to E. coli and Klebsiella pneumoniae. She was also given a prescription for Percocet 7.5/325, #20 and instructed to take 1 p.o. every 6 hours as needed for pain. She will follow- up with Dr. Olmstead in the office in 5-7 days and will follow-up with Dr. Ponce in the office in 2 weeks. The time of discharge she was alert and oriented 3 and appeared to be in no acute distress. Her lungs are clear to auscultation and the heart had a regular rate and rhythm with no gallop. She had no significant peripheral edema. The abdomen was soft, nontender and nondistended and the left flank pain was minimal. This note was generated with Flextripation software. It may contain incorrect words, spelling, and punctuation that were not noted in checking the note before signing. Discharge Activity: - - Take it easy, you were very very sick and it is going to take a while to get your strength back. Weight Bearing Status: Weight bearing as tolerated Call your doctor if you observe: Fever of 101 or Higher, Inability to urinate, Inability to have a bowel movement, Shortness of breath, Dizziness, Fainting spells, Chest pain, Uncontrolled pain, - - Severe diarrhea, sores in your mouth, vaginal itching/vaginal discharge, rash Home Medications: Medications to take at Discharge Aspirin [Aspirin, Baby] 81 mg PO DAILY@0800 11/08/13 Flecainide [Tambocor] 100 mg PO BID 11/08/13 Levothyroxine [Synthroid] 112 mcg PO DAILY 11/08/13 Paroxetine HCl [Paxil] 20 mg PO QHS 12/05/13 Diltiazem CD [Cardizem CD] 120 mg PO DINNER 06/04/14 Ciprofloxacin [Cipro] 500 mg PO BID #18 tab 10/18/17 Oxycodone HCl/Acetaminophen [Percocet 7.5-325 mg Tablet] 1 tab PO Q6H PRN PRN #20 tab 10/18/17 Following Prescrptions Were Given to Patient: Oxycodone HCl/Acetaminophen [Percocet 7.5-325 mg Tablet] 1 tab PO Q6H PRN PRN #20 tab PRN Reason: Pain Ciprofloxacin [Cipro] 500 mg PO BID #18 tab Primary Care Physician: Olivier Olmstead Chi, MD [Primary Care Provider] - Please follow up with your Primary Care Physician in: 5-7 days Please Follow Up With: Girish Ponce MD When: 2 weeks Disposition: Home Minutes spent on discharge:: 38 Patient Condition:: Good Meaningful Use Info Meaningful Use Diagnoses (Choose all that apply): None applicable Code Visit Inpatient E AND M: 15306 Disch Hosp 10/29/17 1800 <Electronically signed by Andria Avery DO> Date Andria Avery DO Cosigner Signature (if applicable): Date CC: Lori Sementi; Girish Ponce MD; Olivier Olmstead MD Signed 12 LEAD ELECTROCARDIOGRAM Observed: 10/24/2017 Status: F Source: [place] 9:34 AM [facility] REPOSITORY [facility] Cardiovascular Services [address] [place] [address] 12 Lead EKG 10/15/17 0835 MR#: [id number] Acct: [id number] Name: AYDE YATES Rep #: [id number] : 1950 67 From: Jose Gomez MD Attending Dr: Lori Avery Status: DIS IN Ordering Dr: Andria Avery DO Date: 10/15/17 Location: [facility] Sex: F C Admitted: 10/14/17 Test Reason : Blood Pressure : / mmHG Vent. Rate : 091 BPM Atrial Rate : 091 BPM P-R Int : 234 ms QRS Dur : 130 ms QT Int : 376 ms P-R-T Axes : 000 -50 043 degrees QTc Int : 462 ms Sinus rhythm with 1st degree A-V block Left axis deviation Left bundle branch block Abnormal ECG When compared with ECG of 05-JUN-2014 05:29, Sinus rhythm has replaced Ectopic atrial rhythm Vent. rate has increased BY 31 BPM Confirmed by JIM RHODES, JOSE ([id number]), advertising editor NORMA REYNOSO ([id number]) on 10/24/2017 9:33:50 AM Referred By: Claude Good Confirmed By:JOSE GOMEZ MD 10/24/17 0933 Date Jose Gomez MD CC: Claude Good MD; Olivier Olmstead MD Signed DISCHARGE INSTRUCTION Observed: 10/18/2017 Status: F Source: [place] 4:15 PM [facility] Medical Records Department [address] [place] [address] Instructions for Home/Discharge Instructions 10/18/17 1607 MR#: [id number] Acct: [id number] Name: AYDE YATES Rep #: [id number] : 1950 67 From: Andria Avery DO PCP: Olivier Olmstead MD, Chi Status: ADM IN - Discharge Diagnoses Current Active Problems: Current Active and Chronic Problems Kidney calculus (Acute) Atrial flutter (Chronic) Hypotension (Acute) You will use the following diet at home:: Regular, Other - make sure to drink enough water to keep the urine a very pale yellow to help prevent more kidney stones Your food should be the consistency of: Regular Your liquids should be the consistency of: Regular/Thin Discharge Activity: - - Take it easy, you were very very sick and it is going to take a while to get your strength back. Weight Bearing Status: Weight bearing as tolerated Call your doctor if you observe: Fever of 101 or Higher, Inability to urinate, Inability to have a bowel movement, Shortness of breath, Dizziness, Fainting spells, Chest pain, Uncontrolled pain, - - Severe diarrhea, sores in your mouth, vaginal itching/vaginal discharge, rash Additional Instructions: Your oxygen is mildly decreased when you walk. Make sure to wear the oxygen anytime you are exerting yourself. You can also wear the oxygen if you feel short of breath at any time. Pending Tests on Discharge: None Allergies/Adverse Reactions: Allergies adhesive Adverse Reaction (Verified 10/14/17 13:20) Rash Medications to take at Discharge Aspirin [Aspirin, Baby] 81 mg PO DAILY@0800 11/08/13 Flecainide [Tambocor] 100 mg PO BID 11/08/13 Levothyroxine [Synthroid] 112 mcg PO DAILY 11/08/13 Paroxetine HCl [Paxil] 20 mg PO QHS 12/05/13 Diltiazem CD [Cardizem CD] 120 mg PO DINNER 06/04/14 Ciprofloxacin [Cipro] 500 mg PO BID #18 tab 10/18/17 Oxycodone HCl/Acetaminophen [Percocet 7.5-325 mg Tablet] 1 tab PO Q6H PRN PRN #20 tab 10/18/17 The following prescriptions were given: Oxycodone HCl/Acetaminophen [Percocet 7.5-325 mg Tablet] 1 tab PO Q6H PRN PRN #20 tab PRN Reason: Pain Ciprofloxacin [Cipro] 500 mg PO BID #18 tab Primary Care Physician: Olivier Olmstead Chi, MD [Primary Care Provider] - Please follow up with your Primary Care Physician in: 5-7 days Please Follow Up With: Girish Ponce MD When: 2 weeks Proposed Discharge Date: 10/18/17 10/18/17 6855 <Electronically signed by Andria SukhAda Jose Angelsilvina HILL> Date Andria Ortiz Jose Angelsilvina HILL CC: Mario Marie D.O.; Girish Ponce MD; Jr Diego MD; Olivier Olmstead MD CBC W/DIFF, AUTOMATED Collected: 10/18/2017 Status: F Source: [place] 4:25 AM [facility] REPOSITORY TYPE CODE TESTS RESULT OUT OF RANGE REFERENCE UNITS LAB L100.1000 4.4-11.0 K/mm3 Normal WBC 4.9 LAB L100.1200 4.2-5.4 M/mm3 Low RBC 2.95 LAB L100.1300 12.0-15.0 g/dl Low HGB 9.6 LAB L100.1400 37-47 % Low HCT 29.6 LAB L100.1500 81-99 fL High MCV 100.3 LAB L100.1600 27.0-32.0 pg High MCH 32.5 LAB L100.1700 32-36 g/gl Normal MCHC 32.4 LAB L100.1810 11.6-14.6 % Normal RDW CV 12.7 LAB L100.1820 35.1-43.9 fl High RDW SD 45.1 LAB L100.1900 150-450 K/mm3 Normal PLT 164 LAB L100.2000 6.2-12.0 fl Normal MPV 10.6 LAB L100.2100 47-70 % High NEUT% 72.0 LAB L100.2200 19-41 % Low LY% 14.5 LAB L100.2300 0-10 % Normal MONO% 9.8 LAB L100.2400 0-5 % Normal EO% 3.3 LAB L100.2500 0-1 % Normal BASO% 0.2 LAB L100.2550 0.0-0.9 % Normal IM GRAN % 0.200 Result Comment: IG% - Immature Granulocytes (promyelocytes, myelocytes and metamyelocytes) > 1% indicates that a LEFT SHIFT is Present. LAB L100.2620 2.0-7.7 X10 3/uL Normal Absolute Neut 3.5 LAB L100.2720 0.83-4.51 X10 3/ul Low Absolute Lymph 0.71 Performed By: #### L100.0100 #### [facility] [facility] [address], [place], [id number] BASIC METABOLIC Collected: 10/18/2017 Status: F Source: CLITHERALL PROFILE (BMP) 4:25 AM [facility] REPOSITORY TYPE CODE TESTS RESULT OUT OF RANGE REFERENCE UNITS LAB L501.0100 70-110 mg/dL Normal GLU 96 LAB L501.1000 7-18 mg/dL Normal BUN 11 LAB L501.1100 0.55-1.02 mg/dL Normal 0.61 CREAT,SERUM Result Comment: The validity of the calculated GFR AND GFRAA in patients over 70 years has not been determined. Clinical correlation is essential. LAB L501.1110 >60 mL/min Normal EST GFR 103 Result Comment: Non- GFR Calc LAB L501.1115 >60 mL/min Normal EST GFR - AA 125 Result Comment: GFR Calc LAB L501.1255 ml/min Normal Estimated CRCL 45.85 LAB L501.1300 10-20 RATIO Normal BUN/CRE 18.0 LAB L501.2200 8.5-10 mg/dL Low .1 CA 7.9 LAB L501.5300 136-14 mmol/L Normal 5 NA 137 LAB L501.5600 3.5-5. mmol/L Low 1 K 3.4 LAB L501.5900 98-107 mmol/L Normal CL 100 LAB L501.6100 21.0-3 mmol/L Normal 2.0 CO2 32.0 LAB L501.6200 5-15 Normal GAP 5 Performed By: #### L500.2500 #### [facility] [address] [facility]. [place], [place], [id number] BASIC METABOLIC Collected: 10/17/2017 Status: F Source: NATHALY PROFILE (BMP) 5:33 AM [facility] REPOSITORY Order Comment: SPECIMEN OBTAINED FROM LINE DRAW TYPE CODE TESTS RESULT OUT OF RANGE REFERENCE UNITS LAB L501.0100 70-110 mg/dL Normal GLU 95 LAB L501.1000 7-18 mg/dL Normal BUN 16 LAB L501.1100 0.55-1.02 mg/dL Normal 0.82 CREAT,SERUM Result Comment: The validity of the calculated GFR AND GFRAA in patients over 70 years has not been determined. Clinical correlation is essential. LAB L501.1110 >60 mL/min Normal EST GFR 73 Result Comment: Non- GFR Calc LAB L501.1115 >60 mL/min Normal EST GFR - AA 89 Result Comment: GFR Calc LAB L501.1255 ml/min Normal Estimated CRCL 55.91 LAB L501.1300 10-20 RATIO Normal BUN/CRE 19.5 LAB L501.2200 8.5-10 mg/dL Low .1 CA 8.0 LAB L501.5300 136-14 mmol/L Normal 5 NA 139 LAB L501.5600 3.5-5. mmol/L Normal 1 K 3.9 LAB L501.5900 98-107 mmol/L Normal CL 104 LAB L501.6100 21.0-3 mmol/L Normal 2.0 CO2 29.0 LAB L501.6200 5-15 Normal GAP 6 Performed By: #### L500.2500 #### [facility] [address] [place], [address] Observed: 10/16/2017 Status: F Source: CLITHERALL CULTURE, BLOOD (WB) 11:15 AM [facility] REPOSITORY VENOUS DRAW,LINE DRAW WAS DONE ALREADY Has pt arrived? Y BC No growth in 5 days. Performed By: #### M200.1000 #### [facility] [address] [place], [address] CHEST PA AND LATERAL Observed: 10/16/2017 Status: F Source: CLITHERALL 10:19 AM [facility] REPOSITORY [facility] Imaging Services [address] [place] [address] Chest PA and Lateral MR#: [id number] Acct: [id number] Name: AYDE YATES Rep #: [id number] : 1950 F 67 From: Kale Peralta MD PCP: Ishan RHODES,Olivier Devries Status: ADM IN Study: Chest PA and Lateral Date of Exam: 10/16/17 Exam# [id number] Ordering Dr: Andria Avery DO STUDY: X-RAY CHEST REASON FOR EXAM: Female, 67 years old. Left-sided pleural effusion. Hypoxia. TECHNIQUE: AP and lateral views of the chest. COMPARISON: Comparison is made with prior study dated October 15, 2017. FINDINGS: EKG electrodes are seen. Since prior study, representing progression of the left pleural-parenchymal changes. Small right pleural effusion with underlying infiltration and/or atelectasis. Mild residual CHF. There is moderate cardiac enlargement. Normal mediastinum and vaibhav. Normal visualized pulmonary arteries. Normal visualized aortic arch and descending thoracic aorta. There are diffuse degenerative changes of the visualized thoracic spine. Increased kyphosis. Normal visualized ribs, clavicles, and shoulders. There is no demonstrated abnormality of the visualized soft tissue structures of the upper abdomen. RAD/Chest PA and Lateral IMPRESSION: Progressive atelectasis and/or infiltration at the left lung base with small left effusion. Blunting of the right costophrenic angle with right basilar atelectasis. Electronically Signed: aKle Peralta MD at 11:08 EST Tel [phone], Service support , CC: Lori Avery; Olivier Olmstead MD Clinical Lab Technologist: Signed Observed: 10/14/2017 Status: F Source: NATHALY CULTURE, BLOOD (WB) 9:15 PM [facility] REPOSITORY Has pt arrived? Y BC ANAEROBIC AND AEROBIC BOTTLE GRAM STAIN = GRAM NEGATIVE RODS PLEASE REFER TO [id number] FOR IDENTIFICATION AND SENSITIVITY ORGANISM 1: Presumptive E. coli Amount Growth Growth Performed By: #### L100.0100, M200.1000 #### [facility] [address] [place], [place], [address] CBC W/DIFF, AUTOMATED Collected: 10/14/2017 Status: F Source: NATHALY 9:10 PM [facility] REPOSITORY TYPE CODE TESTS RESULT OUT OF RANGE REFERENCE UNITS LAB L100.1000 4.4-11.0 K/mm3 High WBC 21.5 LAB L100.1200 4.2-5.4 M/mm3 Low RBC 3.78 LAB L100.1300 12.0-15.0 g/dl Low HGB 11.9 LAB L100.1400 37-47 % Normal HCT 38.4 LAB L100.1500 81-99 fL High MCV 101.6 LAB L100.1600 27.0-32.0 pg Normal MCH 31.5 LAB L100.1700 32-36 g/gl Low MCHC 31.0 LAB L100.1810 11.6-14.6 % Normal RDW CV 13.1 LAB L100.1820 35.1-43.9 fl High RDW SD 48.6 LAB L100.1900 150-450 K/mm3 Normal PLT 282 LAB L100.2000 6.2-12.0 fl Normal MPV 10.1 LAB L100.2100 47-70 % High NEUT% 94.2 LAB L100.2200 19-41 % Low LY% 2.0 LAB L100.2300 0-10 % Normal MONO% 3.2 LAB L100.2400 0-5 % Normal EO% 0.0 LAB L100.2500 0-1 % Normal BASO% 0.0 LAB L100.2550 0.0-0.9 % Normal IM GRAN % 0.600 Result Comment: IG% - Immature Granulocytes (promyelocytes, myelocytes and metamyelocytes) > 1% indicates that a LEFT SHIFT is Present. LAB L100.2620 2.0-7.7 X10 3/uL High Absolute Neut 20.3 LAB L100.2720 0.83-4.51 X10 3/ul Low Absolute Lymph 0.42 LAB L100.4500 Normal SMEAR COMMENT SCANNED Result Comment: NEUTROPHILIA NOTED LYMPHOPENIA NOTED Performed By: #### L100.0100, M200.1000 #### [facility] [place], [address] EMERGENCY DEPARTMENT Observed: 10/14/2017 Status: F Source: CLITHERALL SUMMARY 6:11 PM [facility] REPOSITORY [facility] Medical Records Department [address] [place] [address] Emergency Department Summary 10/14/17 1701 MR#: [id number] Acct: [id number] Name: AYDE YATES Rep #: [id number] : 1950 67 From: Luis Carlos Rm MD PCP: Ishan RHODES,Olivier Devries Status: ADM IN - ER Visit Summary Date of Service: 10/14/17 Chief Complaint: Abdominal and flank pain History of Present Illness: The patient is a [address] Olmstead. She reports that she has a history of kidney stones once previously. She reports that at 9:00 this morning she had the abrupt onset of left flank and left upper quadrant pain. She describes it as a sharp, stabbing pain that is 10 out of 10 severity. Is worsened by nothing relieved by nothing. She reports she has had nausea without vomiting. She has had 4-5 episodes of diarrhea today. No dysuria or frequency. She complains of chills, but no fever. Physical Examination: Vitals: Stable. Afebrile. General: Well-nourished and well-developed. Head: Normocephalic atraumatic. Neck: Supple, no lymphadenopathy. No JVD. Nontender. Cardiovascular: Regular rate and rhythm. No murmurs. Respiratory: No respiratory distress. Clear to auscultation bilaterally. Abdominal: Soft, mild left upper and left lower quadrant tenderness to palpation, nondistended, normal bowel sounds. No guarding, rebound, or peritoneal signs. Back: Nontender. Extremities: Nontender, no edema. Skin: Normal color, no rash. Neurologic: Alert and oriented 3. Cranial nerves II through XII are intact. Normal strength and sensation. Psych: Normal affect. Test Results: CBC is remarkable for a white count of 11.2, segmented neutrophils 89, lymphs at 7. Chem-7 is normal. Patient has not been able to give a urine sample yet. CT flank shows a 0.8 x 1.5 cm left UPJ calculus with moderate hydronephrosis. Emergency Department Course and Treatment: Patient was treated with morphine and Zofran IV. She continues to experience quite severe pain. Treatment Plan: The patient was discussed with Dr. Kingsley and will be admitted to the hospital for further evaluation and treatment. Disposition: Admitted in stable condition. Impression: 1. Left ureterolithiasis. This note was generated with [employer] dictation software. It may contain incorrect words, spelling, and punctuation that were not noted in review of the chart prior to signing ED Disposition - Plan for ED Patient: Chief Complaint: Abd Pain Referrals: Olivier Olmstead Chi, MD [Primary Care Provider] - What to do if you have Problems For any increased pain, shortness of breath, bleeding, nausea or vomiting, chest pain, or any unexpected problems, contact your Primary Care Provider. Call [facility] ([phone]) or report to the closest Emergency Room. Call 911 if necessary. 10/14/17 1811 <Electronically signed by Luis Carlos Rm MD> Date Luis Carlos Rm MD Cosigner Signature (If Indicated): Date CC: Olivier Olmstead MD ABDOMEN SINGLE VIEW Observed: 10/14/2017 Status: F Source: CLITHERALL 5:22 PM [facility] REPOSITORY [facility] Imaging Services [address] [place] [address] Abdomen Single View MR#: [id number] Acct: [id number] Name: AYDE YATES Rep #: [id number] : 1950 F 67 From: Allison Morgan MD PCP: Olivier Olmstead MD, Chi Status: ADM IN Study: Abdomen Single View Date of Exam: 10/14/17 Exam# [id number] Ordering Dr: Claude Kingsley MD STUDY: X-RAY - ABDOMEN/PELVIS REASON FOR EXAM: Female, 67 years old. left sided stone, pain TECHNIQUE: Two AP supine views of the abdomen and pelvis. COMPARISON: CT earlier in the day FINDINGS: There is an unremarkable bowel gas pattern. There is no demonstrated free abdominal air. The visualized liver, spleen and kidneys are grossly normal in size and morphology. There is a stable left ureteropelvic junction calculus. Normal soft tissue structures. There are diffuse degenerative changes of the visualized lumbar spine. RAD/Abdomen Single View IMPRESSION: There is a stable left ureteropelvic junction calculus. Electronically Signed: Allison Morgan MD at 18:28 EST , Service support , CC: Claude Kingsley MD; Olivier Olmstead MD Clinical Lab Technologist: Signed HISTORY AND PHYSICAL Observed: 10/14/2017 Status: F Source: CLITHERALL EXAM 4:58 PM [facility] REPOSITORY [facility] Medical Records Department [address] [place] [address] History and Physical 10/14/17 1649 MR#: [id number] Acct: [id number] Name: AYDE YATES Rep #: [id number] : 1950 67 From: Claude Kingsley MD PCP: Olivier Olmstead MD, Chi Status: REG ER Y Location: ED Problem List (1) Kidney calculus Status: Acute History of Present Illness Date of Admission: 10/14/17 The patient is a 67 year old F prior history of a stone. Currently passed it on her own. In [address] showed the stone to be 2 mm. But has grown in the meantime and now very large at 1.5 cm and causing significant obstruction and symptoms. He is afebrile. Has been difficult getting pain control in the ER and she is admitted for pain control and resolution. Due to multiple comorbidities will admit and most likely place a stent in a.m. and future ESWL. [] Past Medical History Past Medical History (Chronic Problems): Chronic Problems Muscular dystrophy (Chronic) Depression (Chronic) Hypothyroidism (Chronic) Atrial flutter (Chronic) Mitral valve regurgitation (Chronic) Allergies adhesive Adverse Reaction (Verified 10/14/17 13:20) Rash Home Medications: Ambulatory Orders Medication Instructions Recorded Aspirin [Aspirin, Baby] 81 mg PO DAILY@0800 11/08/13 Flecainide [Tambocor] 100 mg PO BID 11/08/13 Surgical History: cholecystectomy, hysterectomy, - - *Stone in the past Psychiatric History: Depression PUBLIC INTERVIEWER History: No pertinent PUBLIC INTERVIEWER history Smoking Status: Former smoker - *Family History Maternal History Items: Hypertension Paternal History Items: Heart Disease Review of Systems Constitutional: Denies: Chills, Fever, Weight Change Cardiovascular: Reports: - - a flutter (no anti-coags). Denies: Chest Pain, Palpitations Respiratory: Denies: Cough, Shortness of breath at rest, Sputum production Gastrointestinal: Denies: Abdominal Pain, Nausea - Some nausea, stone/pain and opiates, Vomiting Musculoskeletal: Reports: Back Pain, Joint Pain, Joint stiffness, - - Arthritis Muscular dystrophy VTE Information - Inpt Only VTE Present on Admission: No VTE Mechan Device Prophylaxis: SCD's VTE Pharm Prophylaxis ordered?: No Patient Problems: Active and Suspected Problems Kidney calculus (Acute) - Physical Exam General: Alert, Oriented x3, Cooperative Lungs: Clear to auscultation, Normal air movement Cardiovascular: Irregular Rate Abdomen: Bowel Sounds Present, Soft, Obese - Had morphine before exama Extremities: No edema, - - Moderate arthritic changes in extremities Musculoskeletal: Arthritic Changes, Muscle Wasting, - - Muscular dystrohy Vital Signs Temp Pulse Resp BP Pulse Ox 98.9 F 88 22 H 139/68 H 94 10/14/17 13:18 10/14/17 16:33 10/14/17 16:33 10/14/17 16:33 10/14/17 16:33 Oxygen Delivery Method Room Air Weight: 86.183 kg Body Mass Index (BMI) 32.5 Laboratory Tests Past 24 Hrs WBC 11.2 H RBC 4.15 L Hgb 13.2 Hct 41.5 MCV 100.0 H MCH 31.8 MCHC 31.8 L Assessment/Plan Active and Suspected Problems Kidney calculus (Acute) Able to give a urine at this time. Need to assess for infection. Will admit for pain control and probable stent in a.m. Then follow-up ESWL. 10/14/17 4498 <Electronically signed by Claude Kingsley MD> Date Claude Kingsley MD [facility] Signature: Date (if applicable) CC: Claude Kingsley MD; Olivier Olmstead MD Signed ABDOMEN/PELVIS WITHOUT Observed: 10/14/2017 Status: F Source: NATHALY CONT 1:55 PM [facility] REPOSITORY [facility] Imaging Services [address] [place] [address] Abdomen/Pelvis without Cont MR#: [id number] Acct: [id number] Name: AYDE YATES Rep #: [id number] : 1950 F 67 From: Lily Love PCP: Olivier Olmstead MD, Chi Status: REG ER Study: Abdomen/Pelvis without Cont Date of Exam: 10/14/17 Exam# [id number] Ordering Dr: Luis Carlos Rm MD STUDY: CT ABDOMEN AND PELVIS WITHOUT CONTRAST REASON FOR EXAM: Female, 67 years old. Left flank pain, hx stones. Prior appendectomy, cholecystectomy, hysterectomy. RADIATION DOSAGE (If Supplied By Facility): CTDIvol = ( 14.93 ) mGy, DLP = ( 820.41 ) mGycm TECHNIQUE: Transaxial images were obtained from the dome of the diaphragm to the symphysis pubis without oral contrast, and without intravenous contrast. Sagittal and coronal images were reconstructed. Individualized dose optimization techniques were used for this CT. COMPARISON: March 04, 2014 FINDINGS: There is mild atelectatic changes at the lung bases The visualized portions of the heart are within normal limits. Normal liver. There are surgical clips in the gallbladder fossa consistent with a prior cholecystectomy. Normal spleen. Normal pancreas. Normal bilateral adrenal glands. Normal right kidney. There is moderate hydronephrosis on the left. There is 0.8 x 1.5 (TR by CC) cm calcification at the UVJ (axial image #72 series 2) There is a small hiatal hernia. Normal small intestine. There are multiple colonic diverticula consistent with diverticulosis. There is non-visualization of the appendix. There is diffuse atherosclerotic calcification of the abdominal aorta, without a demonstrated aneurysm. Normal inferior vena cava. Normal retroperitoneum. Normal urinary bladder. Normal abdominal wall. There are diffuse degenerative changes of the visualized lumbar spine. CT/Abdomen/Pelvis without Cont IMPRESSION: 0.8 x 1.5 cm left UPJ calculus with moderate hydronephrosis. Diverticulosis. Cholecystectomy. Electronically Signed: Lily Love MD at 15:11 EST Tel , Service support , CC: Luis Carlos Rm MD; Olivier Olmstead MD Clinical Lab Technologist: Signed CBC W/DIFF, AUTOMATED Collected: 10/14/2017 Status: F Source: CLITHERALL 1:25 PM [facility] REPOSITORY TYPE CODE TESTS RESULT OUT OF RANGE REFERENCE UNITS LAB L100.1000 4.4-11.0 K/mm3 High WBC 11.2 LAB L100.1200 4.2-5.4 M/mm3 Low RBC 4.15 LAB L100.1300 12.0-15.0 g/dl Normal HGB 13.2 LAB L100.1400 37-47 % Normal HCT 41.5 LAB L100.1500 81-99 fL High MCV 100.0 LAB L100.1600 27.0-32.0 pg Normal MCH 31.8 LAB L100.1700 32-36 g/gl Low MCHC 31.8 LAB L100.1810 11.6-14.6 % Normal RDW CV 13.0 LAB L100.1820 35.1-43.9 fl High RDW SD 47.4 LAB L100.1900 150-450 K/mm3 Normal PLT 296 LAB L100.2000 6.2-12.0 fl Normal MPV 10.2 LAB L100.2100 47-70 % High NEUT% 88.7 LAB L100.2200 19-41 % Low LY% 6.7 LAB L100.2300 0-10 % Normal MONO% 3.7 LAB L100.2400 0-5 % Normal EO% 0.5 LAB L100.2500 0-1 % Normal BASO% 0.2 LAB L100.2550 0.0-0.9 % Normal IM GRAN % 0.200 Result Comment: IG% - Immature Granulocytes (promyelocytes, myelocytes and metamyelocytes) > 1% indicates that a LEFT SHIFT is Present. LAB L100.2620 2.0-7.7 X10 3/uL High Absolute Neut 10.0 LAB L100.2720 0.83-4.51 X10 3/ul Low Absolute Lymph 0.75 Performed By: #### L100.0100 #### [facility] [address] [place], [address] BASIC METABOLIC Collected: 10/14/2017 Status: F Source: CLITHERALL PROFILE (BMP) 1:25 PM [facility] REPOSITORY TYPE CODE TESTS RESULT OUT OF RANGE REFERENCE UNITS LAB L501.0100 70-110 mg/dL Normal GLU 101 LAB L501.1000 7-18 mg/dL Normal BUN 12 LAB L501.1100 0.55-1.02 mg/dL Normal 0.78 CREAT,SERUM Result Comment: The validity of the calculated GFR AND GFRAA in patients over 70 years has not been determined. Clinical correlation is essential. LAB L501.1110 >60 mL/min Normal EST GFR 78 Result Comment: Non- GFR Calc LAB L501.1115 >60 mL/min Normal EST GFR - AA 94 Result Comment: GFR Calc LAB L501.1255 ml/min Normal Estimated CRCL 45.85 LAB L501.1300 10-20 RATIO Normal BUN/CRE 15.4 LAB L501.2200 8.5-10 mg/dL Normal .1 CA 8.7 LAB L501.5300 136-14 mmol/L Normal 5 NA 138 LAB L501.5600 3.5-5. mmol/L Normal 1 K 3.9 LAB L501.5900 98-107 mmol/L Normal CL 103 LAB L501.6100 21.0-3 mmol/L Normal 2.0 CO2 29.0 LAB L501.6200 5-15 Normal GAP 6 Performed By: #### L500.2500 #### [facility] [address] [place], [address] ALLERGIES ALLERGIES DATE TYPE / CODE NAME / CODE REACTION SEVERITY SOURCE 07/31/2018 Drug adhesive/F00 Rash Unknown [facility] Allergy/4160 5777904([facility] 60962(SNOMED RM) Repository CT) 07/31/2018 Drug latex/Y97093 Rash Unknown Nathaly [facility] Allergy/4160 8921(RXNO) Hospital 09050(SNOMED Repository CT) ENCOUNTERS ENCOUNTERS ADMIT/DISCHARGE ACCOUNT ADMITTING ENCOUNTER LOCATION SOURCE NUMBER CLASS 09/26/2018 [id number] Ambulatory Nathaly Nathaly 3 [facility] ing:POLAB3 Repository 09/13/2018 [id number] Ambulatory Nathaly Nathaly 7 [facility] ing:PSN Repository 07/31/2018/ [id number] Ambulatory BMSBuilding:B [place] 8 5 [facility] Repository 04/23/2018 [id number] Ambulatory [place] Nathaly 1 [facility] ing:RAD Repository 04/23/2018 [id number] Ambulatory Nathaly Nathaly 4 [facility] ing:POLAB3 Repository 03/21/2018 [id number] Ambulatory [place] 5 [facility] ing:POLAB3 Repository 03/14/2018 [id number] Ambulatory [place] 6 [facility] ing:OPBD Repository 02/07/2018 [id number] [place]ulatory [place] 2 [facility] ing:LAB Repository 11/06/2017 [id number] [place]ulatory [place] Nathaly 1 [facility] ing:RAD.FUTUR Repository E 11/02/2017/ [id number] [place]ulatory [place] 8 8 [facility] ing:SDC Repository 10/14/2017/ [id number] Jr Diego Inpatient Nathaly Nathaly 7 3 Encounter [facility] ing:PCURoom: Repository [id number]: 1 PAYERS PAYERS ENCOUNTER GUARANTOR PAYER SUBSCRIBER SOURCE 09/26/2018 CLIFTON Poe Primary Insurance:MMO AYDE A Nathaly [id number] MEDICAREPolicy PATTERSONDOB: Community KYLE Number: [id number], [place] [id number] Repository [address]Rii: (330) Date:2460-44-62UN [phone] () [address] [place] [phone]: 09/26/2018 Secondary NOT GIVENUNK Nathaly Insurance:SELF PAY [facility] Number: Effective Repository Date:2018-09-26 09/13/2018 CLIFTON L Primary Insurance:MMO AYDE A [place] [id number] MEDICAREPolicy PATTERSONDOB: Community KYLE Number: [id number], [place] [id number] Repository [address]Yic: (330) Date:1251-37-99RT [phone] (HP) [address] [place] [phone]: 09/13/2018 Secondary NOT GIVENUNK Nathaly Insurance:SELF PAY [facility] Number: Effective Repository Date:2018-09-13 07/31/2018 Clifton L Primary Insurance:MMO AYDE A Nathaly [id number] MEDICAREPolicy PATTERSONDOB: Community Kyle Number: [id number], [place] [id number] Repository [address]Idj: (330) Date:4087-24-34GX [phone] (HP) [address] [place] [phone]: 07/31/2018 Secondary NOT GIVENUNK Anthaly Insurance:SELF PAY [facility] Number: Effective Repository Date:2018-05-21 04/23/2018 Clifton L Primary Insurance:MMO AYDE A [place] [id number] MEDICAREPolicy PATTERSONDOB: Community Kyle Number: [id number] [place], [place] [id number] Repository [address]Iib: (330) Date:4397-94-75JG [phone] (HP) [address] [place] [phone]: 04/23/2018 Secondary NOT GIVENUNK Nathaly Insurance:SELF PAY [facility] Number: Effective Repository Date:2018-04-23 04/23/2018 Clifton Poe Primary Insurance:MMO AYDE A [place] [id number] MEDICAREPolicy [facility] Number: [id number], [place] [id number] Repository [address]Xxf: (330) Date:7164-58-13GH [phone] () [address] [place] [phone]: 04/23/2018 Secondary NOT GIVENUNK Nathaly Insurance:SELF PAY [facility] Number: Effective Repository Date:2018-04-23 03/21/2018 Clifton Poe Primary Insurance:MMO AYDE A Nathaly [id number] MEDICAREPolicy PATTERSONDOB: [facility] Number: [id number] City, [place] [id number] Repository [address]Pwk: Date:3876-81-83CU [phone] [place] [address] 2 () [phone]: 03/21/2018 Secondary NOT GIVENUNK Nathaly Insurance:SELF PAY [facility] Number: Effective Repository Date:2018-03-21 03/14/2018 Clifton Poe Primary Insurance:MMO AYDE A Nathaly [id number] MEDICAREPolicy PATTERSONDOB: [facility] Number: [id number] City, [place] [id number] Repository [address]Daa: Date:5113-68-84HW [address] [phone] [place] [address] 2 () [phone]: 03/14/2018 Secondary NOT GIVENUNK [place] Insurance:SELF PAY [facility] Number: Effective Repository Date:2018-02-20 02/07/2018 Clifton Poe Primary Insurance:MMO AYDE A [place] [id number] MEDICAREPolicy PATTERSONDOB: [facility] Number: [id number] City, [place] [id number] Repository [address]Opc: Date:4905-04-99PL [phone] [address], [place] 2 (HP) [phone]: 02/07/2018 Secondary NOT GIVENUNK [place] Insurance:SELF PAY [facility] Number: Effective Repository Date:2018-02-07 11/06/2017 Clifton L Primary Insurance:MMO AYDE A [place] [id number] MEDICAREPolicy PATTERSONDOB: Community Kyle Number: [id number] City, [place] [id number] Repository [address]Jvm: Date:9879-03-03YZ [phone] [address], [place] 2 (HP) [phone]: 11/06/2017 Secondary NOT GIVENUNK [place] Insurance:SELF PAY [facility] Number: Effective Repository Date:2017-11-05 11/02/2017 Clifton L Primary Insurance:MMO AYDE A [place] [id number] MEDICAREPolicy PATTERSONDOB: Community [place] Number: [id number], [place] [id number] Repository 39314Vjh: Date:5717-81-94ZG [phone] [address], [place] 2 (HP) [address]XI: 11/02/2017 Secondary NOT GIVENUNK [place] Insurance:SELF PAY [facility] Number: Effective Repository Date:2017-10-26 10/14/2017 Clifton L Primary Insurance:MMO AYDE A [place] [id number] MEDICAREPolicy PATTERSONDOB: Community [facility] Number: [id number] [place], [place] [id number] Repository 15228Hps: Date:3563-47-12BR [phone] [address] [place] 2 ([place]) [address]PQ: 10/14/2017 Secondary NOT GIVENUNK [place] Insurance:SELF PAY [facility] Number: Effective Repository Date:2017-10-14
== END ==
PROVIDERS: Family Provider Family Medicine Geriatric Medicine; PCP Family Medicine Geriatric Medicine; Visit Provider Family Medicine Geriatric Medicine
DX: I10 Essential (primary) hypertension (principal); E55.9 Vitamin D deficiency, unspecified
CPT/HCPCS: 36415; 80053; 82306; 84443; 85025

== ENCOUNTER → 2018-11-20 11:48 | Outpatient (CLI) | payer MEDICARE, SELFPAY ==
[2018-11-20 13:07] LABS: Thyroid Stim Hormone (TSH) 0.97 uIU/mL (0.358-3.74)
--- OUTSIDE RECORDS SUMMARY | 2019-01-22 09:42 | XMS RPT_ITS ---
:1950 Author Organization [place] Support Name Relationship Address Phone BUE Unavailable [address] [place] [address] GERARD MCRAE Unavailable [address] + [place] [address] JOHN YATES Unavailable [address] + [place] [address] BUE Unavailable [address] [place] [address] GERARD MCRAE Unavailable [address] + [place] [address] JOHN YATES Unavailable [address] + [place] [address] BUE Unavailable [address] [place] [address] GERARD MCRAE Unavailable [address] + [place] [address] JOHN YATES Unavailable [address] + [place] [address] BUE Unavailable [address] [place] [address] GERARD MCRAE Unavailable [address] + [place] [address] JOHN YATES Unavailable [address] + [place] [address] BUE Unavailable [address] [place] [address] GERARD MCRAE Unavailable [address] + [place] [address] CLIFTON YATES Unavailable [address] + [place] [address] BUE Unavailable [address] + [address] [place] [address] THOR, GERARD Unavailable [address] + [place] [address] SUNIL YATESHEN Unavailable [address] + [place] [address] BUE Unavailable [address] + [address] [place] [address] THOR, GERARD Unavailable [address] + [place] [address] CLIFTON YATES Unavailable [address] + [place] [address] BUE Unavailable [address] + [address] [place] [address] THOR, GERARD Unavailable [address] + [place] [address] CLIFTON YATES Unavailable [address] + [place] [address] BUE Unavailable [address] [place] [address] THOR, GERARD Unavailable [address] + [place] [address] CLIFTON YATES Unavailable [address] + [place] [address] Care Team Providers Name Role Phone Ishan, Olivier Chi Attending Unavailable Ishan, Olivier Chi Primary Care Unavailable KrisGirish Attending Unavailable KrisGirish Referring Unavailable Ishan, Olivier Chi Primary Care Unavailable Ishan, Olivier Chi Attending Unavailable Ishan, Olivier Chi Primary Care Unavailable Ishan, Olivier Chi Attending Unavailable Ishan, Olivier Chi Primary Care Unavailable Ishan, Olivier Chi Attending Unavailable Ishan, Olivier Chi Primary Care Unavailable Ishan, Olivier Chi Attending Unavailable Ishan, Olivier Chi Primary Care Unavailable Sondra Bhatia Attending Unavailable Claude Good Referring Unavailable Ishan, Olivier Chi Attending Unavailable Ishan, Olivier Chi Referring Unavailable Ishan, Olivier Chi Primary Care Unavailable Ishan, Olivier Chi Attending Unavailable Ishan, Olivier Chi Primary Care Unavailable PROBLEMS PROBLEMS DATE TYPE CONDITION / CODE ATTENDING STATUS SOURCE 09/13/2018 Unknown R50.9 - Fever, Ishan, Olivier Chi Active [place] unspecified / Community R50.9(ICD-10) Hospital Repository 07/31/2018 Unknown I48.0 - Paroxysmal Bhatia, Active [place] atrial Sondra Ayers [facility] fibrillation / Hospital I48.0(ICD-10) Repository 07/31/2018 Unknown 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, 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 Ayers [facility] block, unspecified Hospital / I44.7(ICD-10) Repository 04/23/2018 Unknown I50.9 - Heart Ishan, Olivier Chi Active [place] failure, Community unspecified / Hospital I50.9(ICD-10) Repository 03/14/2018 Unknown Z12.31 - Encounter Ishan, Olivier Chi Active [facility] for screening Community mammogram for Hospital malignant neoplasm Repository of breast / Z12.31(ICD-10) 03/14/2018 Unknown Z78.0 - Ishan, Olivier Chi Active [place] Asymptomatic Community menopausal state / Hospital Z78.0(ICD-10) Repository PROCEDURES PROCEDURES No Procedure Records FoundRESULTS RESULTS THYROID STIM HORMONE Collected: 11/20/2018 Status: F Source: [place] (TSH) 11:49 AM [facility] REPOSITORY TYPE CODE TESTS RESULT OUT OF RANGE REFERENCE UNITS LAB L501.9520 0.358-3.74 uIU/mL Normal TSH 0.97 Performed By: #### L501.9520 #### [facility] [place], [address] CBC W/DIFF, AUTOMATED Collected: 09/26/2018 Status: F Source: [place] 2:28 PM [facility] REPOSITORY TYPE CODE TESTS RESULT OUT [...] Lymph 1.69 Performed By: #### L100.0100 #### [facility] [address] [place] [address], [id number] VITAMIN D,25 HYDROXY Collected: 09/26/2018 Status: F Source: [place] 2:28 PM [facility] REPOSITORY TYPE CODE TESTS RESULT OUT OF REFERENCE UNITS RANGE LAB L506.1000 29.95-100.01 ng/mL Low Vitamin D 24.0 25-OH Result Comment: Vitamin D 25(OH) Status Range Deficiency <20 ng/mL (50nmol/L) Insuffciency 20 - 30 ng/mL (50 - 75 nmol/L) Sufficiency 30 - 100 ng/mL (75 - 250 nmol/L) Toxicity >100 ng/mL (>250 nmol/L) Performed By: #### L506.1000 #### [facility] [address] [place], [place], [id number] COMPREHENSIVE METABOLIC Collected: 09/26/2018 Status: F Source: [place] DUKES 2:28 PM [facility] REPOSITORY TYPE CODE TESTS RESULT OUT [...] 7 Performed By: #### L500.4050, L501.9520 #### [facility] [address] [place], [address] THYROID STIM HORMONE Collected: 09/26/2018 Status: F Source: [place] (TSH) 2:28 PM [facility] REPOSITORY TYPE CODE TESTS RESULT OUT OF RANGE REFERENCE UNITS LAB L501.9520 0.358-3.74 uIU/mL High TSH 6.18 Performed By: #### L500.4050, L501.9520 #### [facility] [address] [place], [place], [address] Observed: 09/13/2018 Status: F Source: [place] RESPIRATORY PANEL 1:12 PM [facility] MOLECULAR REPOSITORY RP PANEL ADENOVIRUS Not Detected [...] acid amplification Performed By: #### M100.638 #### [facility] [address] [place], [address] CARDIOLOGY VISIT Observed: 07/31/2018 Status: F Source: [place] REPORT 2:27 PM [facility] REPOSITORY [facility] 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 Mild [...] F Source: [place] AND/OR ERECT 6:17 PM [facility] REPOSITORY [facility] [address] [place] [address] Abd Inc Decub and/or Erect MR#: [id number] Acct: [id number] Name: AYDE YATES Rep #: [id number] : 1950 F 67 From: Jm Jasso MD PCP: Ishan RHODES,Olivier Devries Status: REG CLI Study: Abd Inc Decub and/or Erect Date of Exam: 04/23/18 Exam# [id number] Ordering Dr: Olivier Olmstead MD STUDY: X-RAY [...] Service support , CC: Olivier Olmstead MD Neurology Epilepsy Physician: Signed CBC W/DIFF, AUTOMATED Collected: 04/23/2018 Status: F Source: [place] 3:12 PM [facility] REPOSITORY TYPE CODE TESTS RESULT OUT [...] Lymph 1.62 Performed By: #### L100.0100 #### [facility] [address] [place], [address] BASIC METABOLIC Collected: 04/23/2018 Status: F Source: [place] PROFILE (BMP) 3:12 PM [facility] REPOSITORY TYPE CODE TESTS RESULT OUT [...] GAP 8 Performed By: #### L500.2500 #### [facility] [address] [place] [place], [address] Observed: 04/23/2018 Status: F Source: [place] CULTURE, URINE 3:12 PM [facility] REPOSITORY Urine Culture ORGANISM 1: Escherichia coli [place] Count >100,000 Escherichia coli: REACTION Amikacin $ [...] <=20 S (NF) indicates non-formulary drug at [facility]. Approval by Infectious Disease Specialist required before non-formulary drugs may be ordered and/or dispensed. Performed By: #### M100.0650 #### [facility] [address] [facility] [place], [address] CBC W/DIFF, AUTOMATED Collected: 03/21/2018 Status: F Source: [place] 4:24 PM [facility] REPOSITORY TYPE CODE TESTS RESULT OUT [...] Lymph 1.72 Performed By: #### L100.0100 #### [facility] [address] [place], [address] COMPREHENSIVE METABOLIC Collected: 03/21/2018 Status: F Source: [facility] 4:24 PM [facility] REPOSITORY TYPE CODE TESTS RESULT OUT [...] 5 Performed By: #### L500.4050, L501.9520 #### [facility] [address] [place], [place], [address] THYROID STIM HORMONE Collected: 03/21/2018 Status: F Source: [place] (TSH) 4:24 PM [facility] REPOSITORY TYPE CODE TESTS RESULT OUT OF RANGE REFERENCE UNITS LAB L501.9520 0.358-3.74 uIU/mL Normal TSH 3.72 Performed By: #### L500.4050, L501.9520 #### [facility] [address] [place], [place], [address] VITAMIN D,25 HYDROXY Collected: 03/21/2018 Status: F Source: [place] 4:24 PM [facility] REPOSITORY TYPE CODE TESTS RESULT OUT OF REFERENCE UNITS RANGE LAB L506.1000 29.95-100.01 ng/mL Low Vitamin D 24.3 25-OH Result Comment: Vitamin D 25(OH) Status Range Deficiency <20 ng/mL (50nmol/L) Insuffciency 20 - 30 ng/mL (50 - 75 nmol/L) Sufficiency 30 - 100 ng/mL (75 - 250 nmol/L) Toxicity >100 ng/mL (>250 nmol/L) Performed By: #### L506.1000 #### [facility] [address] [place], [address] SCREENING MAMM (CAD), Observed: 03/14/2018 Status: F Source: [place] BILAT 12:17 PM [facility] REPOSITORY [facility] [address] [place] [address] SCREENING MAMM (CAD), BILAT MR#: [id number] Acct: [id number] Name: AYDE YATES Rep #: [id number] : 1950 F 67 From: Kale Peralta MD PCP: Olivier Olmstead MD, Chi Status: REG CLI Study: SCREENING MAMM (CAD), BILAT Date of Exam: 03/14/18 Exam# [id number] Ordering Dr: Olivier Olmstead MD MAMMOGRAPHY - [...] delay biopsy of a clinically suspicious abnormality. [id number] Electronically Signed: Kale Peralta MD at 13:22 EDT Tel [phone], Service support , CC: Olivier Olmstead MD Neurology Epilepsy Physician: Signed DEXA BONE DENSITY Observed: 03/14/2018 Status: F Source: [place] STUDY 12:17 PM [facility] REPOSITORY [facility] [address] [place] [address] [place] [address] Dexa Bone Density Study MR#: [id number] Acct: [id number] Name: AYDE YATES Rep #: [id number] : 1950 F 67 From: Kale Peralta MD PCP: Olivier Olmstead MD, Chi Status: REG CLI Study: Dexa Bone Density Study Date of Exam: 03/14/18 Exam# [id number] Ordering Dr: Olivier Olmstead MD STUDY: DUAL [...] Kale Peralta MD at 13:58 EDT Tel [phone], Service support , CC: Olivier Olmstead MD Neurology Epilepsy Physician: Signed ABDOMEN SINGLE VIEW Observed: 02/07/2018 Status: F Source: [place] 3:03 PM [facility] REPOSITORY [facility] [address] [place] [address] Abdomen Single View MR#: [id number] Acct: [id number] Name: AYDE YATES Rep #: [id number] : 1950 F 67 From: Gloria Mclean MD PCP: Olivier Olmstead MD, Chi Status: REG CLI Study: Abdomen Single View Date of Exam: 02/07/18 Exam# [id number] Ordering Dr: Girish Ponce MD STUDY: X-RAY [...] of acute intra-abdominal disease. Electronically Signed: Gloria Mclean MD at 7:35 EDT , Service support , CC: Girish Ponce MD; Olivier Olmstead MD Neurology Epilepsy Physician: Signed BASIC METABOLIC Collected: 02/07/2018 Status: F Source: [place] PROFILE (BMP) 3:01 PM [facility] REPOSITORY TYPE CODE TESTS RESULT OUT [...] GAP 4 Performed By: #### L500.2500 #### [facility] [address] [address] [place], [address] ALLERGIES ALLERGIES DATE TYPE / CODE NAME / CODE REACTION SEVERITY SOURCE 07/31/2018 Drug adhesive/F00 Rash Unknown [facility] Allergy/4160 [id number]([place] [address](OMED ) Repository CT) 07/31/2018 Drug latex/B52416 Rash Unknown [facility] Allergy/4160 8921([place] [address](SNOMED Repository CT) ENCOUNTERS ENCOUNTERS ADMIT/DISCHARGE ACCOUNT ADMITTING ENCOUNTER LOCATION SOURCE NUMBER CLASS 11/20/2018 [id number] [place] [facility] ing:POLAB3 Repository 09/26/2018 [id number] Ambulatory [place] 3 [facility] ing:POLAB3 Repository 09/13/2018 [id number] [place] [facility] ing:PSN Repository 07/31/2018/ [id number] Ambulatory BMSBuilding:B [place] 8 5 MS.ALFONSOG [facility] Repository 04/23/2018 [id number] [place] [facility] ing:RAD Repository 04/23/2018 [id number] [place] [facility] ing:POLAB3 Repository 03/21/2018 [id number] Amb[place] 5 [facility] ing:POLAB3 Repository 03/14/2018 [id number] Ambulatory [place] 6 [facility] ing:OPBD Repository 02/07/2018 [id number] Ambulatory [place] 2 [facility] ing:LAB Repository PAYERS PAYERS ENCOUNTER GUARANTOR PAYER SUBSCRIBER SOURCE 11/20/2018 CLIFTON Poe Primary Insurance:MMO AYDE A [place] [id number] MEDICAREPolicy PATTERSONDOB: [facility] Number: [id number] [place], [place] [id number] Repository [address]Mve: (330) Date:0936-97-21XP [phone] () [address] [place] [address]RP: 11/20/2018 Secondary NOT GIVENUNK [place] Insurance:SELF PAY [facility] Number: Effective Repository Date:2018-10-24 09/26/2018 CLIFTON Poe Primary Insurance:MMO AYDE A [place] [id number] MEDICAREPolicy PATTERSONDOB: [facility] Number: [id number], [place] [id number] Repository [address]Qhr: (330) Date:3644-57-21VB [phone] () [address], [place] [address]OR: 09/26/2018 Secondary NOT GIVENUNK [place] Insurance:SELF PAY [facility] Number: Effective Repository Date:2018-09-26 09/13/2018 CLIFTON Poe Primary Insurance:MMO AYDE A [place] [id number] MEDICAREPolicy PATTERSONDOB: [facility] Number: [id number], [place] [id number] Repository [address]Rlh: (330) Date:7545-11-35IL [phone] () [address] [place] [phone]: 09/13/2018 Secondary NOT GIVENUNK [place] Insurance:SELF PAY [facility]: Effective Repository Date:2018-09-13 07/31/2018 Clifton Poe Primary Insurance:MMO AYDE A [place] [id number] MEDICAREPolicy PATTERSONDOB: [facility] Number: [id number], [place] [id number] Repository [address]39[address]Rxr: (330) Date:8882-71-76PP [phone] () [address] [place] [phone]: 07/31/2018 Secondary NOT GIVENUNK [place] Insurance:SELF PAY [facility] Number: Effective Repository Date:2018-05-21 04/23/2018 Clifton Poe Primary Insurance:MMO AYDE A [place] [id number] MEDICAREPolicy PATTERSONDOB: [facility] Number: [id number], [place] [id number] Repository 101[address]Riv: (330) Date:1824-85-05XO [phone] () [address] [place] [address]WK: 04/23/2018 Secondary NOT GIVENUNK [place] Insurance:SELF PAY [facility] Number: Effective Repository Date:2018-04-23 04/23/2018 Clifton Poe Primary Insurance:MMO AYDE A [place] [id number] MEDICAREPolicy PATTERSONDOB: [facility] Number: [id number], [place] [id number] Repository [address]Drm: (330) Date:9007-48-60HT [phone] () [address] [place] [phone]: 04/23/2018 Secondary NOT GIVENUNK [place] Insurance:SELF PAY [facility] Number: Effective Repository Date:2018-04-23 03/21/2018 Clifton Poe Primary Insurance:MMO AYDE A [place] [id number] MEDICAREPolicy PATTERSONDOB: [facility] Number: [id number], [place] [id number] Repository [address]Ktu: Date:0048-62-37BN [phone] [address], [place] 2 (HP) [address]EA: 03/21/2018 Secondary NOT GIVENUNK [place] Insurance:SELF PAY [facility] Number: Effective Repository Date:2018-03-21 03/14/2018 Clifton Poe Primary Insurance:MMO AYDE A [place] [id number] MEDICAREPolicy [facility] Number: [id number], [place] [id number] Repository [address]Ylp: Date:6057-81-09QJ [phone] [address], [place] 2 (HP) [phone]: 03/14/2018 Secondary NOT GIVENUNK [place] Insurance:SELF PAY [facility] Number: Effective Repository Date:2018-02-20 02/07/2018 Clifton Poe Primary Insurance:MMO AYDE A [place] [id number] MEDICAREPolicy PATTERSONDOB: [facility] Number: [id number], [place] [id number] Repository [address]Ehb: Date:0953-42-43WO [phone] [address], [place] 2 (HP) [address]HI: 02/07/2018 Secondary NOT GIVENUNK [place] Insurance:SELF PAY [facility] Number: Effective Repository Date:2018-02-07
== END ==
PROVIDERS: Family Provider Family Medicine Geriatric Medicine; PCP Family Medicine Geriatric Medicine; Visit Provider Family Medicine Geriatric Medicine
DX: E03.9 Hypothyroidism, unspecified (principal)
CPT/HCPCS: 36415; 84443

== ENCOUNTER → 2019-03-27 13:08 | Outpatient (CLI) | payer MEDICARE, SELFPAY ==
[2019-03-27 16:43] LABS: Absolute Lymphocyte Count 1.47 X10^3/ul (0.83-4.51); Absolute Neutrophil Count 2.9 X10^3/uL (2.0-7.7); Basophil# 0.02 X10^3/uL; Basophil% 0.4 % (0-1); Eosinophil# 0.24 X10^3/uL; Eosinophils% 4.8 % (0-5); Hemoglobin 13.5 g/dl (12.0-15.0); Lymphocyte # 1.47 X10^3/ul (4.0); Lymphocyte % 29.3 % (19-41); Mean Corp Hgb Conc 32.1 g/gl (32-36); Mean Corpuscular Volume 96.3 fL (81-99); Mean Platelet Vol. 11.4 fl (6.2-12.0); Monocyte# 0.35 X10^3/uL; Neutrophil # 2.93 X10^3/uL (2.7-7.7); Neutrophil % 58.3 % (47-70); POSITIVE COUNT NO; POSITIVE DIFFERENTIAL NO; POSITIVE MORPHOLOGY NO; Platelet Count 227 K/mm3 (150-450); RBC Distribution Width CV 13.2 % (11.6-14.6); RBC Distribution Width SD 45.2 fl (35.1-43.9); Red Blood Count 4.36 M/mm3 (4.2-5.4)
[2019-03-27 17:08] LABS: ALB/GLOB Ratio 1.2 RATIO (0.9-2.4); AST(SGOT) 23 U/L (15-37); Alanine Aminotransfer ALT/SGPT 29 U/L (13-56); Albumin, Serum 3.7 g/dL (3.2-5.0); Alkaline Phosphatase 136 U/L (45-117); Anion Gap 6 (5-15); BUN 14 mg/dL (7-18); BUN/Creat Ratio 14.9 RATIO (10-20); Chloride 105 mmol/L (98-107); Creatinine, Serum 0.94 mg/dL (0.55-1.02); EST Glomerular Filtration Rate 63 mL/min (>60); Est Glom Filt Rate - Afr Amer 76 mL/min (>60); Globulin 3.2 g/dL (2.2-4.2); Glucose 99 mg/dL (74-106); Potassium 3.8 mmol/L (3.5-5.1); Protein, Total 6.9 g/dL (6.4-8.2); Sodium Level 140 mmol/L (136-145); Thyroid Stim Hormone (TSH) 1.56 uIU/mL (0.358-3.74)
[2019-03-27 17:11] LABS: Vitamin D,25 Hydroxy 24.2 ng/mL (29.95-100.01)
== END ==
PROVIDERS: Family Provider Family Medicine Geriatric Medicine; PCP Family Medicine Geriatric Medicine; Visit Provider Family Medicine Geriatric Medicine
DX: I10 Essential (primary) hypertension (principal); E55.9 Vitamin D deficiency, unspecified
CPT/HCPCS: 36415; 80053; 82306; 84443; 85025

== ENCOUNTER 2019-06-27 18:38 | Emergency (ER) | payer MEDICARE, SELFPAY ==
[2019-06-27 18:39] VITALS: BP 142/79; PULSE 74; RESP 16; TEMP 36.6; O2SAT 97; BMI 31.8
--- NOTE | 2019-06-27 19:09 | CT_ITS ---
STUDY: CT ABDOMEN AND PELVIS WITH CONTRAST REASON FOR EXAM: Female, 68 years old. Abdominal pain, dark stools, muscular dystrophy RADIATION DOSAGE (If Supplied By Facility): CTDIvol = ( 12.67 ) mGy, DLP = ( 1137.39 ) mGycm TECHNIQUE: Transaxial images were obtained from the dome of the diaphragm to the symphysis pubis without oral contrast. 100ml IV Isovue 300 was administered. Sagittal and coronal images were reconstructed. Individualized dose optimization techniques were used for this CT. COMPARISON: October 14, 2017 FINDINGS: The visualized lung bases are unremarkable. The visualized portions of the heart are within normal limits. Normal liver. Nonvisualization of the gallbladder. No significant dilatation of extrahepatic biliary system. Normal spleen. Normal pancreas. Normal bilateral adrenal glands. Normal right kidney. Normal left kidney. Normal visualized stomach. Normal small intestine. Mild diverticulosis of the colon. The appendix is not visualized. Normal abdominal aorta. Normal inferior vena cava. Normal retroperitoneum. Normal urinary bladder. Nonvisualization of the uterus. 1.8 cm left adnexal cystic nodule. 1.2 cm right adnexal cystic nodule. Small fatty umbilical hernia. Mild degenerative vertebral changes and slight scoliosis. CT/Abdomen/Pelvis W IV Cont ONLY IMPRESSION: Small cystic nodules at the adnexa bilaterally. Small fatty umbilical hernia. Mild colonic diverticulosis. Electronically Signed: Jon Walters DO at 20:42 EDT Tel [phone], Service support ,
[2019-06-27 19:32] LABS: Absolute Lymphocyte Count 1.56 X10^3/uL (0.83-4.51); Absolute Neutrophil Count 3.4 X10^3/uL (2.0-7.7); Basophil# 0.03 X10^3/uL; Basophil% 0.5 % (0-1); Eosinophil# 0.21 X10^3/uL; Eosinophils% 3.7 % (0-5); Hemoglobin 13.9 g/dL (12.0-15.0); Lymphocyte # 1.56 X10^3/ul (4.0); Lymphocyte % 27.4 % (19-41); Mean Corp Hgb Conc 32.3 g/dL (32-36); Mean Corpuscular Hgb 32.3 pg (27.0-32.0); Mean Corpuscular Volume 99.8 fL (81-99); Mean Platelet Vol. 10.5 fl (6.2-12.0); Monocyte# 0.44 X10^3/uL; Monocyte% 7.7 % (0-10); NRBC Flagged by Analyzer 0 % (0-5); Neutrophil # 3.43 X10^3/uL (2.7-7.7); Neutrophil % 60.3 % (47-70); Platelet Count 216 K/mm3 (150-450); RBC Distribution Width CV 12.6 % (11.6-14.6); RBC Distribution Width SD 46.5 fl (35.1-43.9); Red Blood Count 4.31 M/mm3 (4.2-5.4); White Blood Count 5.7 K/mm3 (4.4-11.0)
[2019-06-27 19:44] LABS: International Normalized Ratio 0.9; Prothrombin Time (Protime)PT. 12.4 SECONDS (11.7-14.9)
[2019-06-27 19:45] LABS: Partial Thromboplast Time 21.7 Seconds (24.1-36.2)
[2019-06-27 19:52] LABS: AST(SGOT) 21 U/L (15-37); Alanine Aminotransfer ALT/SGPT 29 U/L (13-56); Albumin, Serum 3.6 g/dL (3.2-5.0); Alkaline Phosphatase 156 U/L (45-117); Anion Gap 4 (5-15); BUN 16 mg/dL (7-18); BUN/Creat Ratio 23.2 RATIO (10-20); Calcium,Total 9.2 mg/dL (8.5-10.1); Chloride 108 mmol/L (98-107); Creatinine, Serum 0.69 mg/dL (0.55-1.02); EST Glomerular Filtration Rate 89 mL/min (>60); Est Glom Filt Rate - Afr Amer 108 mL/min (>60); Globulin 3.5 g/dL (2.2-4.2); Glucose 99 mg/dL (74-106); Lipase 143 U/L (73-393); Protein, Total 7.1 g/dL (6.4-8.2); Sodium Level 143 mmol/L (136-145)
--- NOTE | 2019-06-27 21:24 | ED.VIS.GEN ---
History of Present Illness Chief Complaint: GI Bleed Narrative: Patient presenting for evaluation secondary to bloody stools and abdominal pain. Patient reports that about 3 weeks ago she had colonoscopy performed with removal of a couple polyps. Patient states that today she developed abdominal cramping across the top of her abdomen and had an episode where she had a significant amount of blood in the toilet. Patient states that it was associated with feelings of diaphoresis and lightheadedness and some mild nausea but no vomiting. Patient is not on any sort of anticoagulant type medications. Patient reports that she only had the one episode of bloody stools. She denies any presence of fevers. Review of systems otherwise negative. Past Medical History - Allergies and Home Meds Allergies/Adverse Reactions: Allergies adhesive Adverse Reaction (Verified 06/27/19 18:41) Rash Primary Care Physician: Olivier Olmstead Chi, MD [Primary Care Provider] - Past Medical History: - - A. fib and hypothyroidism Surgical History: cholecystectomy, hysterectomy, - - *Stone in the past Smoking Status: Former smoker - Family History Maternal Family History: Family History (Last Reviewed 07/31/18 @ 13:46 by Lisa Lee) Mother Hypertension Cancer Brother Colon cancer Sister Hypertension Daughter CAD (coronary artery disease) Family History: Reports: Hypertension Paternal Family History: Family History (Last Reviewed 07/31/18 @ 13:46 by Lisa Lee) Mother Hypertension Cancer Brother Colon cancer Sister Hypertension Daughter CAD (coronary artery disease) Family History: Reports: Heart Disease Review of Systems All systems negative except as indicated General: Denies: Fever Gastrointestinal: Reports: Abdominal pain, Hematochezia Physical Exam Vital Signs/Narrative: Vital Signs Temp Pulse Resp BP Pulse Ox 06/27/19 18:39 97.8 F 74 16 142/79 H 97 General: Well nourished, Well developed, No Acute Distress Head: Normocephalic, Atraumatic Eyes: Perrl, EOMI. Negative for: Pale conjunctiva, Scleral icterus ENT: Moist mucous membranes, No rhinorrhea Neck: Supple, Nontender Cardiovascular: Regular rate, Regular rhythm, No murmurs Respiratory: No distress, CTA bilaterally, Chest nontender Abdomen: Soft, Tender - Epigastric no guarding or rebound noted Rectal: Deferred Extremities: Nontender, No edema Skin: Normal color, No rash Neurological: Alert, Oriented x3, Cranial nerves II-XII grossly intact, Normal Strength, Normal Sensation Psychological: Normal affect, Normal Mood Diagnostic/Tx/Re-eval - Medical Decision Making Patient presented with abdominal pain and GI bleeding. IV was established laboratory studies were obtained. CBC shows no signs of anemia. CMP and lipase found to be grossly unremarkable. Due to the patient's pain and concern for the possibility of colitis versus diverticulitis versus mass I did perform a CT abdomen and pelvis with IV contrast which shows no specific etiology for the patient's pain or bleeding. Repeat evaluation of the patient shows a benign nonsurgical abdomen. At this point I believe her bleeding likely is secondary to healing from her polypectomies. Patient was given signs and symptoms for which to return, I do not believe that she requires admission or further observation as she is not anticoagulated has stable hemoglobin and is otherwise well-appearing. Patient was discharged in stable condition. ED Disposition - Plan for ED Patient: Disposition: Home or Assisted Living Diagnosis: GI bleeding Instructions: RECTAL BLEED, Stable Referrals: Fausto Turk MD [NON-STAFF] - 3-5 Days
[2019-06-27 21:45] VITALS: BP 145/66; PULSE 78; RESP 16; O2SAT 95
== END 2019-06-27 21:46 | disposition home or self-care (01) ==
PROVIDERS: Emergency Provider Emergency Medicine; Family Provider Family Medicine Geriatric Medicine; PCP Family Medicine Geriatric Medicine
DX: K92.2 Gastrointestinal hemorrhage, unspecified (principal); I48.91 Unspecified atrial fibrillation; E03.9 Hypothyroidism, unspecified; Z79.82 Long term (current) use of aspirin; Z79.899 Other long term (current) drug therapy; Z87.891 Personal history of nicotine dependence; Z90.710 Acquired absence of both cervix and uterus; Z90.49 Acquired absence of other specified parts of digestive tract
CPT/HCPCS: 74177; 80053; 83690; 85025; 85610; 85730; 86850; 86870; 86900; 86901; 86920; 86922; 99285; Q9967; A4216

== ENCOUNTER 2019-07-21 16:30 | Outpatient (RCR) | payer SELFPAY | END 2019-07-28 23:59 | LOC: NS 16:30 | PROVIDERS: Family Provider Family Medicine Geriatric Medicine; PCP Family Medicine Geriatric Medicine; Visit Provider Family Medicine Geriatric Medicine | DX: E66.9 Obesity, unspecified (principal); K76.0 Fatty (change of) liver, not elsewhere classified; Z71.3 Dietary counseling and surveillance | CPT/HCPCS: 97802 ==

== ENCOUNTER 2019-09-02 15:27 | Outpatient (RCR) | payer SELFPAY | END 2019-09-27 23:59 | LOC: NS 15:27 | PROVIDERS: Family Provider Family Medicine Geriatric Medicine; PCP Family Medicine Geriatric Medicine; Visit Provider Family Medicine Geriatric Medicine | DX: Z71.3 Dietary counseling and surveillance (principal) | CPT/HCPCS: 97803 ==

== ENCOUNTER → 2019-10-02 13:34 | Outpatient (CLI) | payer MEDICARE, SELFPAY ==
[2019-09-03 14:01] VITALS: BMI 32.8
[2019-10-02 16:50] LABS: Absolute Lymphocyte Count 1.79 X10^3/uL (0.83-4.51); Absolute Neutrophil Count 2.9 X10^3/uL (2.0-7.7); Basophil# 0.03 X10^3/uL; Basophil% 0.6 % (0-1); Eosinophil# 0.24 X10^3/uL; Eosinophils% 4.4 % (0-5); Hematocrit 41.8 % (37-47); Hemoglobin 13.5 g/dL (12.0-15.0); Lymphocyte # 1.79 X10^3/ul (4.0); Mean Corp Hgb Conc 32.3 g/dL (32-36); Mean Corpuscular Hgb 31.4 pg (27.0-32.0); Mean Corpuscular Volume 97.2 fL (81-99); Mean Platelet Vol. 10.8 fl (6.2-12.0); Monocyte# 0.42 X10^3/uL; Monocyte% 7.7 % (0-10); NRBC Flagged by Analyzer 0 % (0-5); Neutrophil # 2.94 X10^3/uL (2.7-7.7); Neutrophil % 54.1 % (47-70); Platelet Count 274 K/mm3 (150-450); RBC Distribution Width CV 12.8 % (11.6-14.6); RBC Distribution Width SD 45.4 fl (35.1-43.9); White Blood Count 5.4 K/mm3 (4.4-11.0)
[2019-10-02 17:39] LABS: ALB/GLOB Ratio 1.2 RATIO (0.9-2.4); AST(SGOT) 24 U/L (15-37); Alanine Aminotransfer ALT/SGPT 32 U/L (13-56); Albumin, Serum 3.7 g/dL (3.2-5.0); Alkaline Phosphatase 146 U/L (45-117); Anion Gap 5 (5-15); BUN 17 mg/dL (7-18); BUN/Creat Ratio 23.3 RATIO (10-20); Calcium,Total 9.2 mg/dL (8.5-10.1); Chloride 105 mmol/L (98-107); Creatinine, Serum 0.73 mg/dL (0.55-1.02); EST Glomerular Filtration Rate 84 mL/min (>60); Est Glom Filt Rate - Afr Amer 101 mL/min (>60); Globulin 3.2 g/dL (2.2-4.2); Glucose 86 mg/dL (74-106); Potassium 4.3 mmol/L (3.5-5.1); Protein, Total 6.9 g/dL (6.4-8.2); Sodium Level 138 mmol/L (136-145); Thyroid Stim Hormone (TSH) 0.68 uIU/mL (0.358-3.74)
[2019-10-02 18:27] LABS: Vitamin D,25 Hydroxy 63.3 ng/mL (29.95-100.01)
== END ==
PROVIDERS: Family Provider Family Medicine Geriatric Medicine; PCP Family Medicine Geriatric Medicine; Visit Provider Family Medicine Geriatric Medicine
DX: I10 Essential (primary) hypertension (principal); E55.9 Vitamin D deficiency, unspecified
CPT/HCPCS: 36415; 80053; 82306; 84443; 85025

== ENCOUNTER 2019-10-27 10:27 | Outpatient (RCR) | payer SELFPAY ==
[2019-09-03 14:01] VITALS: BMI 32.8
== END 2019-10-27 23:59 | disposition home or self-care (01) ==
LOC: NS 10:27
PROVIDERS: Family Provider Family Medicine Geriatric Medicine; PCP Family Medicine Geriatric Medicine; Visit Provider Family Medicine Geriatric Medicine
DX: Z71.3 Dietary counseling and surveillance (principal); E66.9 Obesity, unspecified; Z68.36 Body mass index [BMI] 36.0-36.9, adult
CPT/HCPCS: 97803

== ENCOUNTER → 2020-05-04 14:41 | Outpatient (CLI) | payer MEDICARE, SELFPAY ==
[2019-09-03 14:01] VITALS: BMI 32.8
[2020-05-04 15:38] LABS: Absolute Lymphocyte Count 1.52 X10^3/uL (0.83-4.51); Absolute Neutrophil Count 2.6 X10^3/uL (2.0-7.7); Basophil# 0.03 X10^3/uL; Basophil% 0.6 % (0-1); Eosinophils% 4.2 % (0-5); Hematocrit 39.9 % (37-47); Hemoglobin 12.7 g/dL (12.0-15.0); Lymphocyte # 1.52 X10^3/ul (4.0); Lymphocyte % 32.1 % (19-41); Mean Corp Hgb Conc 31.8 g/dL (32-36); Mean Corpuscular Hgb 31.9 pg (27.0-32.0); Mean Corpuscular Volume 100.3 fL (81-99); Mean Platelet Vol. 11.1 fl (6.2-12.0); Monocyte# 0.37 X10^3/uL; Monocyte% 7.8 % (0-10); NRBC Flagged by Analyzer 0 % (0-5); Neutrophil % 55.1 % (47-70); Platelet Count 225 K/mm3 (150-450); RBC Distribution Width CV 12.8 % (11.6-14.6); RBC Distribution Width SD 47.2 fl (35.1-43.9); Red Blood Count 3.98 M/mm3 (4.2-5.4); White Blood Count 4.7 K/mm3 (4.4-11.0)
[2020-05-04 15:55] LABS: Vitamin D,25 Hydroxy 99.7 ng/mL
[2020-05-04 16:07] LABS: ALB/GLOB Ratio 1.2 RATIO (0.9-2.4); AST(SGOT) 24 U/L (15-37); Alanine Aminotransfer ALT/SGPT 28 U/L (13-56); Albumin, Serum 3.6 g/dL (3.2-5.0); Alkaline Phosphatase 127 U/L (45-117); Anion Gap 5 (5-15); BUN 17 mg/dL (7-18); Calcium,Total 8.7 mg/dL (8.5-10.1); Chloride 104 mmol/L (98-107); Creatinine, Serum 0.77 mg/dL (0.55-1.02); EST Glomerular Filtration Rate 78 mL/min (>60); Est Glom Filt Rate - Afr Amer 94 mL/min (>60); Globulin 3.1 g/dL (2.2-4.2); Glucose 83 mg/dL (74-106); Potassium 3.5 mmol/L (3.5-5.1); Protein, Total 6.7 g/dL (6.4-8.2); Sodium Level 140 mmol/L (136-145); Thyroid Stim Hormone (TSH) 0.55 uIU/mL (0.358-3.74)
== END ==
PROVIDERS: PCP Family Medicine Geriatric Medicine; Visit Provider Family Medicine Geriatric Medicine
DX: E55.9 Vitamin D deficiency, unspecified (principal); I10 Essential (primary) hypertension
CPT/HCPCS: 36415; 80053; 82306; 84443; 85025

== ENCOUNTER 2020-05-29 13:57 | Emergency (ER) | payer MEDICARE, SELFPAY ==
[2019-09-03 14:01] VITALS: BMI 32.8
[2020-05-29 13:58] VITALS: BP 156/84; PULSE 81; RESP 17; TEMP 36.3; O2SAT 95; BMI 30.9
--- NOTE | 2020-05-29 14:03 | RAD_ITS ---
STUDY: X-RAY - LEFT WRIST REASON FOR EXAM: Female, 69 years old. Status post fall yesterday, pain and swelling with redness. TECHNIQUE: 4 view(s) of the wrist were obtained. COMPARISON: None. FINDINGS: There is demineralization of the radius and ulna. Normal radiocarpal articulation. Normal distal radioulnar articulation. Normal carpal bones. Normal carpal articulations. Normal carpometacarpal articulation of the thumb. Normal second through fifth carpometacarpal articulations. Normal visualized metacarpal bones. There is soft tissue swelling. RAD/Wrist min 3 Views IMPRESSION: Soft tissue swelling. No demonstrated acute fracture. Electronically Signed: Brandon Gu MD at 15:32 EDT Tel , Service support ,
--- NOTE | 2020-05-29 14:04 | ED.DCSUM_ITS ---
History of Present Illness Chief Complaint: Upper Extremity Injury Informant: Patient Occurred: Yesterday Mechanism/Context: Fall Context: Sudden Onset Timing: Continuous Quality of Pain: Aching Location: left wrist Current Severity: Mild Maximum Severity: Moderate Worsened by: moving Relieved by: remaining still, ice Associated Symptoms: Negative for: Parasthesia, Weakness, Loss of Funtion Narrative: Yolb-hdmh-rnirnevc female who has CMT states as a result of that she is unsteady, she was working around the house and moving some things around and stepped backwards lost her balance and did not have her cane on her, and as a result fell onto outstretched hand against the floor. She did not injure anything else other than her left wrist. - Past Medical History (1) CMT (Rymsbeo-Yokja-Lzsoo disease) Status: Chronic (2) Non-rheumatic mitral regurgitation Status: Chronic (3) Paroxysmal atrial fibrillation Status: Chronic (4) Hypotension Status: Chronic (5) Hypothyroidism Status: Chronic Past Medical History - Allergies and Home Meds Allergies/Adverse Reactions: Allergies adhesive Adverse Reaction (Verified 05/29/20 13:57) Rash Primary Care Physician: Olivier Olmstead Chi, MD [Primary Care Provider] - Surgical History: cholecystectomy, hysterectomy, - - *Stone in the past Lives: Alone Smoking Status: Former smoker - Family History Maternal Family History: Family History (Last Reviewed 09/03/19 @ 14:03 by Sondra Frye) Mother Hypertension Cancer Brother Colon cancer Sister Hypertension Daughter CAD (coronary artery disease) Family History: Reports: Hypertension Paternal Family History: Family History (Last Reviewed 09/03/19 @ 14:03 by Sondra Frye) Mother Hypertension Cancer Brother Colon cancer Sister Hypertension Daughter CAD (coronary artery disease) Family History: Reports: Heart Disease Review of Systems General: Denies: Chills, Fever, Sweats Cardiovascular: Denies: Chest pain, Palpitations Respiratory: Denies: Dyspnea, Cough, Dyspnea on exertion Gastrointestinal: Denies: Abdominal pain, Nausea, Vomiting, Diarrhea, Melena, Hematochezia Musculoskeletal: Reports: Extremity Pain Skin: Denies: Rash, Wounds Neurological: Denies: Weakness, Numbness Physical Exam Vital Signs/Narrative: Vital Signs Temp Pulse Resp BP Pulse Ox 05/29/20 13:58 97.4 F L 81 17 156/84 H 95 General: Well nourished, Well developed Head: Normocephalic, Atraumatic Extremeties: Able to range the left wrist, but limited due to pain, at extremes only. No deformities. Mildly tender distal radius, no tenderness at the ulna. Tender at the scaphoid, however there is no pain with firm axial loading of the thumb. No hand bone tenderness. Full range of motion throughout all fingers, as well as the other joints of the left upper extremity. Skin: Normal color - Except for slight erythema surrounding the dorsal left wrist, presumably due to ice application, No rash Neurological: Alert, Oriented x3, Cranial nerves II-XII grossly intact, Normal Strength, Normal Sensation Psychological: Normal affect Diagnostic/Tx/Re-eval - Medical Decision Making On my interpretation 4 views of the left wrist including navicular view are n egative for fracture. She likely has a sprain, she does not have any pain with axial loading of the thumb, but I will place her in a Velcro prefabricated thumb spica splint just in case, and have her follow-up. She does not require prescription analgesics. All questions answered at the bedside. ED Disposition - Plan for ED Patient: Disposition: Home or Assisted Living Diagnosis: Sprain of wrist, left Instructions: ED Fx Wrist Navicular Poss, ED Sprain Wrist Referrals: Olivier Olmstead Chi, MD [Primary Care Provider] - 1 Week if not improving
== END 2020-05-29 15:31 | disposition home or self-care (01) ==
PROVIDERS: Emergency Provider Emergency Medicine; PCP Family Medicine Geriatric Medicine
DX: S63.502A Unspecified sprain of left wrist, initial encounter (principal); W01.0XXA Fall on same level from slipping, tripping and stumbling without subsequent striking against object, initial encounter; Y93.89 Activity, other specified; Y92.009 Unspecified place in unspecified non-institutional (private) residence as the place of occurrence of the external cause; I48.0 Paroxysmal atrial fibrillation; E03.9 Hypothyroidism, unspecified; Z79.82 Long term (current) use of aspirin; Z79.899 Other long term (current) drug therapy; Z87.891 Personal history of nicotine dependence
CPT/HCPCS: 73110; 99283

== ENCOUNTER → 2020-06-03 14:32 | Outpatient (CLI) | payer MEDICARE, SELFPAY ==
[2020-06-03 14:21] VITALS: BMI 29.8
== END ==
PROVIDERS: PCP Family Medicine Geriatric Medicine; Referring Provider Chiropractor; Visit Provider Chiropractor
DX: M54.9 Dorsalgia, unspecified (principal)
CPT/HCPCS: 72110

== ENCOUNTER → 2020-06-07 16:01 | Outpatient (CLI) | payer MEDICARE, SELFPAY ==
[2020-06-03 14:21] VITALS: BMI 29.8
--- NOTE | 2020-06-07 16:02 | CT_ITS ---
Exam: Noncontrast CT of the left wrist. HISTORY: Fall. Pain. COMPARISON: Radiographs 05/29/2020 which are normal. Individualized dose optimization techniques were used for this CT. Results: No acute fracture or dislocation. Normal bone contours. Mineralization appears within normal limits. No significant degenerative changes. Grossly negative soft tissues. CT/Extremity Lower without Contra IMPRESSION: No definite acute abnormalities. Electronically Signed: Pedro Luis Bright MD at 16:52 EDT , Service support ,
== END ==
PROVIDERS: PCP Family Medicine Geriatric Medicine; Referring Provider Family Medicine Geriatric Medicine; Visit Provider Family Medicine Geriatric Medicine
DX: M25.539 Pain in unspecified wrist (principal)
CPT/HCPCS: 73200; 73700

== ENCOUNTER 2020-07-09 16:40 | Emergency (ER) | payer MEDICARE, SELFPAY ==
[2020-06-03 14:21] VITALS: BMI 29.8
[2020-07-09 16:42] VITALS: BP 145/85; PULSE 102; RESP 18; TEMP 36.3; O2SAT 92; BMI 30.8
--- NOTE | 2020-07-09 16:57 | ED.DCSUM_ITS ---
History of Present Illness Chief Complaint: General Illness Informant: Patient Narrative: Patient states that last night she woke from sleep very congested with her ears hurting. She states she had body aches and nausea. She reports that she has been drinking fluids today but worried she has not had an off as her mouth is feeling dry. She states she is urinating normally and the color looks normal. No diarrhea. No cough or shortness of breath. Patient denies any rashes. She describes a frontal headache as a sinus headache. T-max of 99.5 at home. She had some DayQuil around 10 this morning. Past Medical History - Allergies and Home Meds Allergies/Adverse Reactions: Allergies adhesive Adverse Reaction (Verified 07/09/20 16:41) Rash Primary Care Physician: Olivier Olmstead Chi, MD [Primary Care Provider] - Surgical History: cholecystectomy, hysterectomy, - - *Stone in the past Smoking Status: Former smoker - Family History Maternal Family History: Family History (Last Reviewed 07/08/20 @ 11:32 by Sasha Roberson) Mother Hypertension Cancer Brother Colon cancer Sister Hypertension Daughter CAD (coronary artery disease) Family History: Reports: Hypertension Paternal Family History: Family History (Last Reviewed 07/08/20 @ 11:32 by Sasha Roberson) Mother Hypertension Cancer Brother Colon cancer Sister Hypertension Daughter CAD (coronary artery disease) Family History: Reports: Heart Disease Review of Systems General: Reports: Chills, Fever, Malaise. Denies: Sweats Eyes: Denies: Visual changes - bilaterally, Diplopia ENT: Reports: Bilateral ear pain, - - Nasal congestion and dry mouth. Denies: Rhinorrhea, Sore throat Cardiovascular: Denies: Chest pain, Palpitations Respiratory: Denies: Dyspnea, Cough, Dyspnea on exertion Gastrointestinal: Reports: Nausea. Denies: Abdominal pain, Vomiting, Diarrhea, Melena, Hematochezia Genitourinary: Denies: Dysuria, Hematuria, Frequency Musculoskeletal: Denies: Back pain, Extremity Pain Skin: Denies: Rash, Wounds Neurological: Reports: Headache. Denies: Weakness, Numbness Physical Exam Vital Signs/Narrative: Vital Signs Temp Pulse Resp BP Pulse Ox 07/09/20 16:42 97.4 F L 102 H 18 145/85 H 92 General: Well nourished, Well developed, No Acute Distress Head: Normocephalic, Atraumatic Eyes: Perrl, EOMI ENT: Moist mucous membranes, No rhinorrhea, Nasal congestion, Sinus tenderness Neck: Supple, Nontender Cardiovascular: Regular rate, Regular rhythm, No murmurs Respiratory: No distress, CTA bilaterally, Chest nontender Abdomen: Soft, Nontender, Nondistended, Normal bowel sounds Back: Nontender, Normal Inspection Extremities: Nontender, No edema Skin: Normal color, No rash Neurological: Alert, Oriented x3, Cranial nerves II-XII grossly intact, Normal Strength, Normal Sensation Psychological: Normal affect, Normal Mood Diagnostic/Tx/Re-eval Clinical Impression(s) from Imaging Studies Chest X-Ray 07/09/20 17:35 IMPRESSION: Mild interstitial thickening in both lower lobes and slightly increased density at left base possibly inflammatory. Clinical correlation recommended Electronically Signed: Jesse Farias MD at 17:51 EDT , Service support , Laboratory Last Values WBC 6.3 K/mm3 (4.4-11.0) 07/09/20 17:09 RBC 4.22 M/mm3 (4.2-5.4) 07/09/20 17:09 Hgb 13.5 g/dL (12.0-15.0) 07/09/20 17:09 Hct 41.1 % (37-47) 07/09/20 17:09 MCV 97.4 fL (81-99) 07/09/20 17:09 MCH 32.0 pg (27.0-32.0) 07/09/20 17:09 MCHC 32.8 g/dL (32-36) 07/09/20 17:09 RDW Std Deviation 44.8 fl (35.1-43.9) H 07/09/20 17:09 RDW Coeff of Viktoria 12.6 % (11.6-14.6) 07/09/20 17:09 Plt Count 201 K/mm3 (150-450) 07/09/20 17:09 MPV 10.1 fl (6.2-12.0) 07/09/20 17:09 Immature Gran % (Auto) 0.300 % (0.0-0.9) 07/09/20 17:09 Neut % (Auto) 80.1 % (47-70) H 07/09/20 17:09 Lymph % (Auto) 9.3 % (19-41) L 07/09/20 17:09 [place] % (Auto) 9.3 % (0-10) 07/09/20 17:09 Eos % (Auto) 0.8 % (0-5) 07/09/20 17:09 Baso % (Auto) 0.2 % (0-1) 07/09/20 17:09 Absolute Neuts (auto) 5.0 X10^3/uL (2.0-7.7) 07/09/20 17:09 Absolute Lymphs (auto) 0.58 X10^3/uL (0.83-4.51) L 07/09/20 17:09 Nucleated RBC % 0 % (0-5) 07/09/20 17:09 Sodium 137 mmol/L (136-145) 07/09/20 17:09 Potassium 3.9 mmol/L (3.5-5.1) 07/09/20 17:09 Chloride 104 mmol/L (98-107) 07/09/20 17:09 Carbon Dioxide 28.0 mmol/L (21.0-32.0) 07/09/20 17:09 Anion Gap 5 (5-15) 07/09/20 17:09 BUN 13 mg/dL (7-18) 07/09/20 17:09 Creatinine 0.72 mg/dL (0.55-1.02) 07/09/20 17:09 Estim Creat Clear Calc 42.68 ml/min 07/09/20 17:09 Est GFR (MDRD) Af Amer 102 mL/min (>60) 07/09/20 17:09 Est GFR (MDRD) Non-Af 84 mL/min (>60) 07/09/20 17:09 BUN/Creatinine Ratio 18.0 RATIO (10-20) 07/09/20 17:09 Glucose 105 mg/dL (74-106) 07/09/20 17:09 Calcium 9.0 mg/dL (8.5-10.1) 07/09/20 17:09 Total Bilirubin 1.60 mg/dL (0.20-1.00) H 07/09/20 17:09 AST 24 U/L (15-37) 07/09/20 17:09 ALT 22 U/L (13-56) 07/09/20 17:09 Alkaline Phosphatase 128 U/L (45-117) H 07/09/20 17:09 Total Protein 6.8 g/dL (6.4-8.2) 07/09/20 17:09 Albumin 3.5 g/dL (3.2-5.0) 07/09/20 17:09 Globulin 3.3 g/dL (2.2-4.2) 07/09/20 17:09 Albumin/Globulin Ratio 1.1 RATIO (0.9-2.4) 07/09/20 17:09 Urine Color Yellow (Yellow) 07/09/20 20:40 Urine Clarity Sl. Cloudy (Clear) 07/09/20 20:40 Urine pH 6.0 (5.0 - 8.0) 07/09/20 20:40 Ur Specific [place] 1.010 (1.002-1.030) 07/09/20 20:40 Urine Protein 15 mg/dl (Negative) H 07/09/20 20:40 Urine Glucose (UA) Normal mg/dl (Normal) 07/09/20 20:40 Urine Ketones 50 mg/dl (Negative) H 07/09/20 20:40 Urine Occult Blood 50 /ul (Negative) H 07/09/20 20:40 Urine Nitrite Positive (Negative) H 07/09/20 20:40 Urine Bilirubin Negative mg/dL (Negative) 07/09/20 20:40 Urine Urobilinogen Normal mg/dl (Normal) 07/09/20 20:40 Ur Leukocyte Esterase 500 /ul (Negative) H 07/09/20 20:40 Urine RBC 0-5 SEEN /hpf (0-5) 07/09/20 20:40 Urine WBC 25-50 SEEN /hpf (0-5) 07/09/20 20:40 Ur Squamous Epith Cells 0-5 SEEN /hpf (5-10) 07/09/20 20:40 Urine Bacteria 1+ /hpf (None Seen) 07/09/20 20:40 Urine Mucus 0 SEEN /hpf (<or=2+) 07/09/20 20:40 - Medical Decision Making He received 2 L of IV fluids and Zofran and Toradol. Later she also received Tylenol. Patient has clear evidence of a UTI which could explain her fever and rundown feeling. She also has some nasal congestion ear pressure this could be environmental could also be viral URI. Would not place her on antibiotics. I do not think the patient needs a Pro test. She has not had cough shortness of breath diarrhea. Her chest x-ray not demonstrated pneumonia pattern. Patient is comfortable with this plan return if worsening or concerns ED Disposition - Plan for ED Patient: Disposition: Home or Assisted Living Diagnosis: UTI (urinary tract infection), Febrile illness, acute Instructions: ED Fever Control (Adult), ED CYSTITIS Female Adult Prescriptions: Cephalexin [Keflex] 500 mg PO Q12 #14 cap Transmission Status: Pending to [facility] Ondansetron [Zofran Odt] 4 mg PO Q8H PRN PRN #10 tab PRN Reason: Nausea Transmission Status: Pending to [facility] Referrals: Olivier Olmstead Chi, MD [Primary Care Provider] - 3-5 Days if not improving
[2020-07-09] MEDS: 0.9% Normal Saline 1,000 ML 1000 ML IV (17:26)
[2020-07-09] MEDS: Ketorolac 15 MG/ML Vial IV (17:27)
[2020-07-09] MEDS: Ondansetron 4 MG/2 ML Vial IV (17:27)
[2020-07-09 17:33] LABS: Absolute Lymphocyte Count 0.58 X10^3/uL (0.83-4.51); Basophil# 0.01 X10^3/uL; Basophil% 0.2 % (0-1); Eosinophil# 0.05 X10^3/uL; Eosinophils% 0.8 % (0-5); Hematocrit 41.1 % (37-47); Hemoglobin 13.5 g/dL (12.0-15.0); Lymphocyte # 0.58 X10^3/ul (4.0); Lymphocyte % 9.3 % (19-41); Mean Corp Hgb Conc 32.8 g/dL (32-36); Mean Corpuscular Volume 97.4 fL (81-99); Mean Platelet Vol. 10.1 fl (6.2-12.0); Monocyte# 0.58 X10^3/uL; Monocyte% 9.3 % (0-10); NRBC Flagged by Analyzer 0 % (0-5); Neutrophil # 5.02 X10^3/uL (2.7-7.7); Neutrophil % 80.1 % (47-70); POSITIVE DIFFERENTIAL YES; Platelet Count 201 K/mm3 (150-450); RBC Distribution Width CV 12.6 % (11.6-14.6); RBC Distribution Width SD 44.8 fl (35.1-43.9); Red Blood Count 4.22 M/mm3 (4.2-5.4); White Blood Count 6.3 K/mm3 (4.4-11.0)
--- NOTE | 2020-07-09 17:35 | RAD_ITS ---
STUDY: X-RAY CHEST REASON FOR EXAM: Female, 69 years old. PT PRESENTS WITH GENERALIZED WEAKNESS, BODY ACHES, NAUSEA, HEADACHE, AND FEVER TECHNIQUE: AP portable COMPARISON: 10/16/2017 FINDINGS: There is mild interstitial thickening in both lower lobes and increased density at left base possibly representing focal infiltrate. There is no demonstrated pleural abnormality. Heart is enlarged. Normal mediastinum and vaibhav. Normal visualized pulmonary arteries. Tortuous mildly calcified aortic arch and descending thoracic aorta. Normal visualized thoracic spine. Normal visualized ribs, clavicles, and shoulders. There is no demonstrated abnormality of the visualized soft tissue structures of the upper abdomen. RAD/Chest 1 View (Portable) IMPRESSION: Mild interstitial thickening in both lower lobes and slightly increased density at left base possibly inflammatory. Clinical correlation recommended Electronically Signed: Jesse Farias MD at 17:51 EDT , Service support ,
[2020-07-09 17:44] LABS: ALB/GLOB Ratio 1.1 RATIO (0.9-2.4); AST(SGOT) 24 U/L (15-37); Alanine Aminotransfer ALT/SGPT 22 U/L (13-56); Albumin, Serum 3.5 g/dL (3.2-5.0); Alkaline Phosphatase 128 U/L (45-117); Anion Gap 5 (5-15); BUN 13 mg/dL (7-18); Chloride 104 mmol/L (98-107); Creatinine, Serum 0.72 mg/dL (0.55-1.02); EST Glomerular Filtration Rate 84 mL/min (>60); Est Glom Filt Rate - Afr Amer 102 mL/min (>60); Estimated Creatinine Clearance 42.68 ml/min; Globulin 3.3 g/dL (2.2-4.2); Glucose 105 mg/dL (74-106); Potassium 3.9 mmol/L (3.5-5.1); Protein, Total 6.8 g/dL (6.4-8.2); Sodium Level 137 mmol/L (136-145)
[2020-07-09 18:00] LABS: Differential Indicated SCAN CRITERIA MET
[2020-07-09 19:15] VITALS: TEMP 37.7
[2020-07-09] MEDS: 0.9% Normal Saline 1,000 ML 999 ML IV (19:20)
[2020-07-09] MEDS: Acetaminophen 500 MG Tablet 1000 MG PO (20:34)
[2020-07-09 20:47] VITALS: BP 127/55; PULSE 86; RESP 18; TEMP 36.7; O2SAT 89
[2020-07-09 20:51] LABS: Mucous, Urine 0 SEEN /hpf (<or=2+)
[2020-07-09 20:55] LABS: Color, Urine Yellow (Yellow); Glucose, Dipstick Normal (Normal); Ketone-Dipstick 50 mg/dl (Negative); Leukocyte Esterase-Dipstick 500 /ul (Negative); Nitrite-Dipstick Positive (Negative); Occult Blood-Urine 50 /ul (Negative); Protein-Dipstick 15 mg/dl (Negative); Urine Bilirubin Dipstick Negative (Negative); Urine Clarity Sl. Cloudy (Clear); Urine Urobilinogen Normal (Normal)
[2020-07-09 21:20] LABS: Bacteria 1+ /hpf (None Seen); Red Blood Cells-Urine 0-5 SEEN /hpf (0-5); Squamous Epithelial Cells - UA 0-5 SEEN /hpf (5-10); White Blood Cells 25-50 SEEN /hpf (0-5)
[2020-07-09] MEDS: Cephalexin 250 MG Capsule 500 MG PO (22:00)
[2020-07-09 22:03] VITALS: O2SAT 93
== END 2020-07-09 22:09 | disposition home or self-care (01) ==
PROVIDERS: Emergency Provider Emergency Medicine; PCP Family Medicine Geriatric Medicine
DX: N39.0 Urinary tract infection, site not specified (principal); H92.03 Otalgia, bilateral; R09.81 Nasal congestion
CPT/HCPCS: 71045; 80053; 81001; 85025; 87077; 87086; 87088; 87186; 96361; 96374; 96375; 99285; J7030; A4216; J2405

== ENCOUNTER → 2020-08-02 11:41 | Outpatient (CLI) | payer MEDICARE, SELFPAY ==
[2020-07-09 16:42] VITALS: BMI 30.8
--- NOTE | 2020-08-02 12:20 | RAD_ITS ---
STUDY: X-RAY CHEST REASON FOR EXAM: Female, 70 years old. CHEST PAIN TECHNIQUE: Frontal and lateral views of the chest. COMPARISON: 07/09/2020. FINDINGS: The lungs are clear and expanded. There is no demonstrated pleural abnormality. Normal size heart. Normal mediastinum and vaibhav. Normal visualized pulmonary arteries. There is atherosclerotic calcification of the aortic arch with tortuosity. There are diffuse degenerative changes of the visualized thoracic spine. Previous cervical spine surgery. Normal visualized ribs, clavicles, and shoulders. There is no demonstrated abnormality of the visualized soft tissue structures of the upper abdomen. RAD/Chest PA and Lateral IMPRESSION: No definite acute or significant abnormality seen. Electronically Signed: Pedro Luis Bright MD at 13:06 EDT , Service support ,
[2020-08-02 12:32] LABS: Absolute Lymphocyte Count 1.15 X10^3/uL (0.83-4.51); Absolute Neutrophil Count 4.3 X10^3/uL (2.0-7.7); Basophil# 0.01 X10^3/uL; Basophil% 0.2 % (0-1); Eosinophil# 0.08 X10^3/uL; Eosinophils% 1.3 % (0-5); Hematocrit 35.5 % (37-47); Hemoglobin 12.1 g/dL (12.0-15.0); Lymphocyte # 1.15 X10^3/ul (4.0); Lymphocyte % 18.4 % (19-41); Mean Corp Hgb Conc 34.1 g/dL (32-36); Mean Corpuscular Hgb 33.6 pg (27.0-32.0); Mean Corpuscular Volume 98.6 fL (81-99); Mean Platelet Vol. 10.6 fl (6.2-12.0); Monocyte% 11.2 % (0-10); NRBC Flagged by Analyzer 0 % (0-5); Neutrophil % 68.7 % (47-70); Platelet Count 191 K/mm3 (150-450); RBC Distribution Width CV 12.6 % (11.6-14.6); RBC Distribution Width SD 44.7 fl (35.1-43.9); White Blood Count 6.3 K/mm3 (4.4-11.0)
[2020-08-02 12:56] LABS: ALB/GLOB Ratio 0.9 RATIO (0.9-2.4); AST(SGOT) 17 U/L (15-37); Alanine Aminotransfer ALT/SGPT 18 U/L (13-56); Alkaline Phosphatase 118 U/L (45-117); Anion Gap 8 (5-15); BUN 22 mg/dL (7-18); BUN/Creat Ratio 24.9 RATIO (10-20); CPK Total, Creatine Kinase 126 U/L (26-192); Calcium,Total 8.8 mg/dL (8.5-10.1); Chloride 103 mmol/L (98-107); Creatinine, Serum 0.88 mg/dL (0.55-1.02); EST Glomerular Filtration Rate 67 mL/min (>60); Est Glom Filt Rate - Afr Amer 81 mL/min (>60); Globulin 3.2 g/dL (2.2-4.2); Glucose 99 mg/dL (74-106); Potassium 3.7 mmol/L (3.5-5.1); Protein, Total 6.2 g/dL (6.4-8.2); Sodium Level 138 mmol/L (136-145); Thyroid Stim Hormone (TSH) 0.33 uIU/mL (0.358-3.74)
[2020-08-02 13:09] LABS: D-Dimer Quantitative (DVT/PE) 1.03 FEU/ug/m (0.27-0.49)
[2020-08-03 07:58] LABS: Myoglobin, Serum 85 ng/mL (25-58)
[2020-08-03 16:52] LABS: BNP,B-Type NATRIURETIC PEPTIDE 98.2 pg/mL (0-100)
== END ==
PROVIDERS: PCP Family Medicine Geriatric Medicine; Visit Provider Family Medicine Geriatric Medicine
DX: R07.9 Chest pain, unspecified (principal)
CPT/HCPCS: 36415; 71046; 80053; 82550; 83874; 83880; 84443; 84484; 85025; 85379; 87086

== ENCOUNTER → 2020-08-02 14:40 | Outpatient (CLI) | payer MEDICARE, SELFPAY ==
[2020-07-09 16:42] VITALS: BMI 30.8
--- NOTE | 2020-08-02 14:55 | CT_ITS ---
STUDY: CTA CHEST REASON FOR EXAM: Female, 70 years old. ELEVATED D-DIMER, IV INFILTRATED DURING INJECTION, UNABLE TO START ANOTHER IV RADIATION DOSAGE (If Supplied By Facility): CTDIvol = ( 12.92 ) mGy, DLP = ( 386.79 ) mGycm TECHNIQUE: The examination was performed with the intravenous administration of IV 100mL Isovue-370. Post-processing of the angiographic images was performed, with multiplanar reformation and 3D reconstruction. Individualized dose optimization techniques were used for this CT. COMPARISON: None. FINDINGS: There is limited enhancement of the main pulmonary artery and right and left pulmonary arteries. There is limited enhancement of the bilateral peripheral pulmonary arteries. Specifically, most of the contrast is seen in the right brachiocephalic vein and SVC, and the aorta is enhanced as much as the pulmonary arteries. This indicates a much too broad contrast bolus with improper timing. Pulmonary emboli cannot be excluded beyond the pulmonary trunk. There is atherosclerotic calcification of the aortic arch with tortuosity. There is no demonstrated aortic dissection. Hqpr-lb-hqaejovc cardiomegaly. Normal mediastinum. Normal hilar regions. Normal visualized trachea and bronchi. The lungs are hyper expanded, with flattening of the hemidiaphragms. Normal pulmonary parenchyma. Normal pleura. There are degenerative changes of thoracic spine. Limited views through the upper abdomen suggest left hydronephrosis and possible functioning left kidney. CT/CTA Chest W/WO Contrast IMPRESSION: Technically inadequate exam for confirming or excluding pulmonary emboli as indicated above. Improper bolus and timing. There are findings consistent with COPD. There is no evidence of acute chest disease. Electronically Signed: Pedro Luis Bright MD at 17:23 EDT , Service support ,
== END ==
PROVIDERS: PCP Family Medicine Geriatric Medicine; Referring Provider Family Medicine Geriatric Medicine; Visit Provider Family Medicine Geriatric Medicine
DX: R79.9 Abnormal finding of blood chemistry, unspecified (principal); R07.9 Chest pain, unspecified; R53.83 Other fatigue; N39.0 Urinary tract infection, site not specified
CPT/HCPCS: 36415; 71046; 71275; 80053; 82550; 83874; 83880; 84443; 84484; 85025; 85379; 87077; 87086; 87088; 87186; Q9967

== ENCOUNTER → 2020-08-05 09:20 | Outpatient (CLI) | payer MEDICARE, SELFPAY ==
[2020-07-09 16:42] VITALS: BMI 30.8
== END ==
LOC: MTDU 02-15 00:19
PROVIDERS: PCP Family Medicine Geriatric Medicine; Referring Provider Family Medicine Geriatric Medicine; Visit Provider Family Medicine Geriatric Medicine
DX: R06.89 Other abnormalities of breathing (principal)
CPT/HCPCS: 87633; 87635; C9803; U0003

== ENCOUNTER → 2020-08-12 08:29 | Outpatient (CLI) | payer MEDICARE, SELFPAY ==
--- NOTE | 2020-08-12 15:44 | PFTCOMP_ITS ---
COMPLETE PULMONARY FUNCTION TEST INTERPRETATION Brief HPI: Patient is a 70 year old female, currently under the care of Dr. Olmstead, who presents to [facility] for complete pulmonary function tests secondary to diagnosis of dyspnea. Respiratory therapist reports good effort and reproducible results. Interpretation: Forced expiration spirometry shows no large airways obstructive ventilatory defect with an FEV1 of 74% predicted. There is no significant bronchodilator response by strict ATS criteria. Spirograms are of good quality and plateau normally. The respiratory flow volume loop shows decreased expiratory flow rates at high lung volumes consistent with small airways obstruction. Lung volumes by body plethysmography show a normal total lung capacity at 4.47 L, 97% predicted. FRC and RV are elevated out of proportion. Lung volume measurements are consistent with air-trapping. Diffusion capacity by carbon monoxide is decreased at 54% predicted. The airway resistance is elevated. No previous pulmonary function tests were available for review. Impression: Isolated reduction diffusion capacity with some stigmata suggestive of small airways disease.
== END ==
PROVIDERS: PCP Family Medicine Geriatric Medicine; Referring Provider Family Medicine Geriatric Medicine; Visit Provider Family Medicine Geriatric Medicine
DX: R06.02 Shortness of breath (principal)
CPT/HCPCS: 94060; 94726; 94729

== ENCOUNTER → 2020-09-08 14:24 | Outpatient (CLI) | payer MEDICARE, SELFPAY ==
[2020-09-08 13:34] VITALS: BMI 30.4
[2020-09-08 18:27] LABS: Thyroid Stim Hormone (TSH) 2.33 uIU/mL (0.358-3.74)
== END ==
PROVIDERS: PCP Family Medicine Geriatric Medicine; Visit Provider Family Medicine Geriatric Medicine
DX: E03.9 Hypothyroidism, unspecified (principal)
CPT/HCPCS: 36415; 84443

== ENCOUNTER → 2020-10-25 11:29 | Outpatient (CLI) | payer MEDICARE, SELFPAY ==
[2020-09-08 13:34] VITALS: BMI 30.4
[2020-10-25 17:08] LABS: Absolute Lymphocyte Count 1.89 X10^3/uL (0.83-4.51); Absolute Neutrophil Count 2.8 X10^3/uL (2.0-7.7); Basophil# 0.02 X10^3/uL; Basophil% 0.4 % (0-1); Eosinophil# 0.28 X10^3/uL; Eosinophils% 5.3 % (0-5); Hematocrit 45.6 % (37-47); Hemoglobin 14.4 g/dL (12.0-15.0); Lymphocyte # 1.89 X10^3/ul (4.0); Lymphocyte % 35.5 % (19-41); Mean Corp Hgb Conc 31.6 g/dL (32-36); Mean Corpuscular Hgb 31.3 pg (27.0-32.0); Mean Corpuscular Volume 99.1 fL (81-99); Mean Platelet Vol. 10.7 fl (6.2-12.0); Monocyte# 0.29 X10^3/uL; Monocyte% 5.5 % (0-10); NRBC Flagged by Analyzer 0 % (0-5); Neutrophil # 2.84 X10^3/uL (2.7-7.7); Neutrophil % 53.3 % (47-70); Platelet Count 289 K/mm3 (150-450); RBC Distribution Width SD 47.3 fl (35.1-43.9); White Blood Count 5.3 K/mm3 (4.4-11.0)
[2020-10-25 17:20] LABS: Vitamin D,25 Hydroxy 92.3 ng/mL
[2020-10-25 17:29] LABS: ALB/GLOB Ratio 1.2 RATIO (0.9-2.4); AST(SGOT) 31 U/L (15-37); Alanine Aminotransfer ALT/SGPT 42 U/L (13-56); Albumin, Serum 3.9 g/dL (3.2-5.0); Alkaline Phosphatase 139 U/L (45-117); Anion Gap 6 (5-15); BUN 16 mg/dL (7-18); BUN/Creat Ratio 17.6 RATIO (10-20); Calcium,Total 9.3 mg/dL (8.5-10.1); Chloride 103 mmol/L (98-107); Creatinine, Serum 0.91 mg/dL (0.55-1.02); EST Glomerular Filtration Rate 65 mL/min (>60); Est Glom Filt Rate - Afr Amer 78 mL/min (>60); Globulin 3.3 g/dL (2.2-4.2); Glucose 89 mg/dL (74-106); Potassium 3.8 mmol/L (3.5-5.1); Protein, Total 7.2 g/dL (6.4-8.2); Sodium Level 138 mmol/L (136-145); Thyroid Stim Hormone (TSH) 1.98 uIU/mL (0.358-3.74)
[2020-10-25 17:36] LABS: Vitamin B12 > 2000 pg/mL (211-911)
== END ==
PROVIDERS: PCP Family Medicine Geriatric Medicine; Visit Provider Family Medicine Geriatric Medicine
DX: I10 Essential (primary) hypertension (principal); E55.9 Vitamin D deficiency, unspecified
CPT/HCPCS: 36415; 80053; 82306; 82607; 84443; 85025

== ENCOUNTER → 2020-11-03 12:51 | Outpatient (CLI) | payer MEDICARE, SELFPAY ==
[2020-09-08 13:34] VITALS: BMI 30.4
--- NOTE | 2020-11-03 12:53 | ECHOCS_ITS ---
Reason For Study: MVP Procedure This was a 2D Doppler, Color Flow transthoracic echocardiogram. The study was technically difficult. Contrast injection was performed. Exam performed in department. Left Ventricle Normal LV size. Sigmoid septum. Left ventricular systolic function is normal. The estimated ejection fraction is 60 %. Septal motion consistent with IVCD. Diastolic function is indeterminate. No regional wall motion abnormalities noted. Right Ventricle Normal RV size. Normal systolic function. Atria The left atrium is mildly enlarged. Normal right atrium. No doppler evidence for ASD. Mitral Valve There is mild mitral annular calcification. Extension of the mitral annular calcification onto the base of the posterior mitral valve leaflet. Equivocal mitral valve prolapse. Mild (1+) eccentric mitral valve insufficiency. Tricuspid Valve Normal tricuspid valve. Mild tricuspid valve insufficiency. Right ventricular systolic pressure estimated to be 27 mmHg. Aortic Valve Trisinus/trileaflet aortic valve. Normal aortic valve. Pulmonic Valve The pulmonic valve is not well visualized. Trivial pulmonic valve insufficiency. Great Vessels Normal sized aortic root. Pericardium/Pleural No pericardial effusion. MMode/2D Measurements & Calculations LVIDd: 5.2 cm IVSd: 1.2 cm Ao root diam: 3.2 cm LVIDs: 3.4 cm LVPWd: 0.99 cm RVDd: 3.1 cm FS: 33.7 % LAV(MOD-bp): 58.3 ml LA A4 area: 20.7 cm2 LA dimension(2D): 5.1 cm LAV(MOD-bp) Indexed: 32.3 ml/m2 LAV(MOD-sp2): 49.5 ml LAV(MOD-sp4): 65.6 ml RA A4 area: 9.9 cm2 Doppler Measurements & Calculations MV E max wade: 61.1 cm/sec Lat Peak E' Wade: 6.3 cm/sec Med Peak E' Wade: 4.2 cm/sec MV A max wade: 79.6 cm/sec E/E' lat: 9.7 E/E' med: 14.6 MV E/A: 0.77 Ao V2 max: 135.5 cm/sec LV V1 max: 111.0 cm/sec PA V2 max: 101.1 cm/sec Ao max P.3 mmHg LV V1 max P.9 mmHg Ao V2 mean: 103.5 cm/sec Ao mean P.5 mmHg Ao V2 VTI: 26.9 cm TR max wade: 247.0 cm/sec TR max P.4 mmHg Interpretation Summary The study was technically difficult. Contrast injection was performed. Left ventricular systolic function is normal. The estimated ejection fraction is 60 %. Septal motion consistent with IVCD. Sigmoid septum. The left atrium is mildly enlarged. There is mild mitral annular calcification. Extension of the mitral annular calcification onto the base of the posterior mitral valve leaflet. Equivocal mitral valve prolapse. Mild (1+) eccentric mitral valve insufficiency. Mild tricuspid valve insufficiency. Trivial pulmonic valve insufficiency. Right ventricular systolic pressure estimated to be 27 mmHg. Diastolic function is indeterminate. Ordering Physician: Claude Good Referring Physician: Olivier Olmstead Chi Performed By: Meghna Saunders, HERNANDEZ, RVT
== END ==
PROVIDERS: PCP Family Medicine Geriatric Medicine; Referring Provider Internal Medicine Cardiovascular Disease; Visit Provider Internal Medicine Cardiovascular Disease
DX: I34.1 Nonrheumatic mitral (valve) prolapse (principal); I47.1 Supraventricular tachycardia; I34.0 Nonrheumatic mitral (valve) insufficiency; I48.0 Paroxysmal atrial fibrillation; I44.7 Left bundle-branch block, unspecified
CPT/HCPCS: 93306; Q9957; A4216; C8929

== ENCOUNTER 2020-12-22 14:44 | Outpatient (RCR) | payer MEDICARE, SELFPAY ==
[2020-09-08 13:34] VITALS: BMI 30.4
== END 2020-12-22 23:59 ==
LOC: IMMUN 14:44
PROVIDERS: PCP Family Medicine Geriatric Medicine; Referring Provider Family Medicine; Visit Provider Family Medicine
DX: Z23 Encounter for immunization (principal)
CPT/HCPCS: 0011A; 0012A

== ENCOUNTER → 2021-04-27 13:35 | Outpatient (CLI) | payer MEDICARE, SELFPAY ==
[2020-09-08 13:34] VITALS: BMI 30.4
[2021-04-27 15:06] LABS: Absolute Lymphocyte Count 1.68 X10^3/uL (0.83-4.51); Absolute Neutrophil Count 3.5 X10^3/uL (2.0-7.7); Basophil# 0.03 X10^3/uL; Basophil% 0.5 % (0-1); Eosinophil# 0.21 X10^3/uL; Eosinophils% 3.6 % (0-5); Hematocrit 40.9 % (37-47); Hemoglobin 13.4 g/dL (12.0-15.0); Lymphocyte # 1.68 X10^3/ul (0.83-4.51); Lymphocyte % 29.1 % (19-41); Mean Corp Hgb Conc 32.8 g/dL (32-36); Mean Corpuscular Hgb 31.8 pg (27.0-32.0); Mean Corpuscular Volume 96.9 fL (81-99); Mean Platelet Vol. 10.8 fl (6.2-12.0); Monocyte# 0.37 X10^3/uL; Monocyte% 6.4 % (0-10); NRBC Flagged by Analyzer 0 % (0-5); Neutrophil # 3.48 X10^3/uL (2.7-7.7); Neutrophil % 60.2 % (47-70); Platelet Count 257 K/mm3 (150-450); RBC Distribution Width CV 12.6 % (11.6-14.6); RBC Distribution Width SD 44.9 fl (35.1-43.9); Red Blood Count 4.22 M/mm3 (4.2-5.4); White Blood Count 5.8 K/mm3 (4.4-11.0)
[2021-04-27 15:24] LABS: Vitamin D,25 Hydroxy 60.7 ng/mL
[2021-04-27 15:30] LABS: ALB/GLOB Ratio 1.2 RATIO (0.9-2.4); AST(SGOT) 28 U/L (15-37); Alanine Aminotransfer ALT/SGPT 32 U/L (13-56); Albumin, Serum 3.6 g/dL (3.2-5.0); Alkaline Phosphatase 144 U/L (45-117); Anion Gap 5 (5-15); BUN 16 mg/dL (7-18); Calcium,Total 9.1 mg/dL (8.5-10.1); Chloride 107 mmol/L (98-107); EST Glomerular Filtration Rate 75 mL/min (>60); Est Glom Filt Rate - Afr Amer 90 mL/min (>60); Globulin 3.1 g/dL (2.2-4.2); Glucose 100 mg/dL (74-106); Protein, Total 6.7 g/dL (6.4-8.2); Sodium Level 140 mmol/L (136-145); Thyroid Stim Hormone (TSH) 4.75 uIU/mL (0.358-3.74)
== END ==
PROVIDERS: PCP Family Medicine Geriatric Medicine; Visit Provider Family Medicine Geriatric Medicine
DX: I10 Essential (primary) hypertension (principal); E55.9 Vitamin D deficiency, unspecified
CPT/HCPCS: 36415; 80053; 82306; 84443; 85025

== ENCOUNTER → 2021-06-13 08:38 | Outpatient (CLI) | payer MEDICARE, SELFPAY ==
[2020-09-08 13:34] VITALS: BMI 30.4
[2021-06-13 11:12] LABS: Thyroid Stim Hormone (TSH) 0.29 uIU/mL (0.358-3.74)
== END ==
PROVIDERS: PCP Family Medicine Geriatric Medicine; Referring Provider Family Medicine Geriatric Medicine; Visit Provider Family Medicine Geriatric Medicine
DX: E03.9 Hypothyroidism, unspecified (principal)
CPT/HCPCS: 36415; 84443

== ENCOUNTER → 2021-08-10 08:26 | Outpatient (CLI) | payer MEDICARE, SELFPAY ==
[2021-08-10 09:49] LABS: Thyroid Stim Hormone (TSH) 0.48 uIU/mL (0.358-3.74)
== END ==
PROVIDERS: PCP Family Medicine Geriatric Medicine; Referring Provider Family Medicine Geriatric Medicine; Visit Provider Family Medicine Geriatric Medicine
DX: E03.9 Hypothyroidism, unspecified (principal)
CPT/HCPCS: 36415; 84443

== ENCOUNTER → 2021-10-26 14:09 | Outpatient (CLI) | payer MEDICARE, SELFPAY ==
[2021-10-26 15:04] LABS: Absolute Lymphocyte Count 1.64 X10^3/uL (0.83-4.51); Basophil# 0.03 X10^3/uL; Basophil% 0.6 % (0-1); Eosinophil# 0.22 X10^3/uL; Eosinophils% 4.2 % (0-5); Hematocrit 40.3 % (37-47); Hemoglobin 13.3 g/dL (12.0-15.0); Lymphocyte # 1.64 X10^3/ul (0.83-4.51); Lymphocyte % 31.1 % (19-41); Mean Corpuscular Hgb 31.7 pg (27.0-32.0); Mean Corpuscular Volume 96.2 fL (81-99); Mean Platelet Vol. 10.7 fl (6.2-12.0); Monocyte# 0.39 X10^3/uL; Monocyte% 7.4 % (0-10); NRBC Flagged by Analyzer 0 % (0-5); Neutrophil # 2.98 X10^3/uL (2.7-7.7); Neutrophil % 56.5 % (47-70); Platelet Count 246 K/mm3 (150-450); RBC Distribution Width CV 12.8 % (11.6-14.6); RBC Distribution Width SD 45.4 fl (35.1-43.9); Red Blood Count 4.19 M/mm3 (4.2-5.4); White Blood Count 5.3 K/mm3 (4.4-11.0)
[2021-10-26 15:25] LABS: AST(SGOT) 24 U/L (15-37); Alanine Aminotransfer ALT/SGPT 34 U/L (13-56); Albumin, Serum 3.5 g/dL (3.2-5.0); Alkaline Phosphatase 140 U/L (45-117); Anion Gap 6 (5-15); BUN 15 mg/dL (7-18); BUN/Creat Ratio 22.1 RATIO (10-20); Chloride 108 mmol/L (98-107); Creatinine, Serum 0.68 mg/dL (0.55-1.02); EST Glomerular Filtration Rate 90 mL/min (>60); Est Glom Filt Rate - Afr Amer 109 mL/min (>60); Globulin 3.4 g/dL (2.2-4.2); Glucose 90 mg/dL (74-106); Potassium 4.3 mmol/L (3.5-5.1); Protein, Total 6.9 g/dL (6.4-8.2); Sodium Level 141 mmol/L (136-145); Thyroid Stim Hormone (TSH) 0.88 uIU/mL (0.358-3.74)
== END ==
PROVIDERS: PCP Family Medicine Geriatric Medicine; Visit Provider Family Medicine Geriatric Medicine
DX: I10 Essential (primary) hypertension (principal); E55.9 Vitamin D deficiency, unspecified
CPT/HCPCS: 36415; 80053; 82306; 84443; 85025

== ENCOUNTER 2022-02-01 08:25 | Outpatient (CLI) | payer MEDICARE, SELFPAY ==
--- NOTE | 2022-02-01 08:29 | BI_ITS ---
MAMMOGRAPHY - BILATERAL SCREENING REASON FOR EXAM: Female, 71 years old. Routine annual screening examination. PERTINENT HISTORY: Mother with breast cancer. TECHNIQUE: Digital bilateral breast parveen (3D mammographic acquisition) in the CC and MLO projections. 2-D mediolateral oblique (MLO) and craniocaudad (CC) views of both breasts were obtained. CAD: Full Field Digital Mammography with Computer Added Detection was performed. COMPARISON: Comparison is made with prior study dated 03/14/2018 and 08/20/2015. FINDINGS: Breast Composition: There are scattered areas of fibroglandular density. There are no dominant masses or suspicious calcifications. Small benign-appearing bilateral axillary lymph nodes. No other significant abnormalities are identified. There has been no significant change since the prior study. BI/SCRN MAMM (CAD)W/PARVEEN BILAT IMPRESSION: Stable bilateral screening mammogram. Yearly follow-up mammogram recommended. (A) ASSESSMENT CATEGORY: BIRADS Category 2: Benign. A letter regarding these results will be sent to the patient by the facility within 30 days. Approximately 10% of breast cancers are not detected by mammography. A normal mammogram should not delay biopsy of a clinically suspicious abnormality. [id number] Electronically Signed: Kale Peralta MD at 9:06 EDT ,
== END 2022-02-01 23:59 | disposition home or self-care (01) ==
LOC: OPBI 08:26
PROVIDERS: PCP Family Medicine Geriatric Medicine; Visit Provider Family Medicine Geriatric Medicine
DX: Z12.31 Encounter for screening mammogram for malignant neoplasm of breast (principal); Z80.3 Family history of malignant neoplasm of breast
CPT/HCPCS: 77063; 77067

== ENCOUNTER → 2022-03-01 | Outpatient (CLI) | payer MEDICARE, SELFPAY ==
--- NOTE | 2022-03-01 11:30 | RAD_ITS ---
EXAM: XR RIGHT HIP WITH PELVIS WHEN PERFORMED, 2 OR 3 VIEWS CLINICAL INDICATION: HIP PAIN TECHNIQUE: Two or three views of the right hip with pelvis when performed. This report was created using [employer] report generation technology. COMPARISON: None. FINDINGS: BONES/JOINTS: Unremarkable. No displaced fracture. No destructive or sclerotic lesions. Note that overlapping bowel shadows may however obscure fine detail. Sacroiliac joint is unremarkable. No widening of the pubic symphysis. The articular structures are unremarkable. SOFT TISSUES: Unremarkable. No soft tissue swelling or gas. RAD/HIP, UNI W/ Pelvis 2-3 Views IMPRESSION: No acute abnormality. Electronically Signed: Coleman Ureña MD at 16:55 EDT ,
--- NOTE | 2022-03-01 11:30 | RAD_ITS ---
EXAM: XR LUMBOSACRAL SPINE COMPLETE WITH FLEXION/EXTENSION, 6 OR MORE VIEWS CLINICAL INDICATION: LOW BACK PAIN TECHNIQUE: Lateral, frontal, oblique and lateral flexion/extension views of the lumbar spine and sacrum. This report was created using [employer] report generation technology. COMPARISON: June 03, 2020 FINDINGS: VERTEBRAE: Stable mild scoliosis. DISC SPACES: Multilevel disc space narrowing and vertebral body spurring, unchanged from prior exam. L4-5 and L5-S1 facet arthropathy. GASTROINTESTINAL TRACT: No evidence of bowel obstruction. RAD/L/S Spine w Bend Min 6 Vw IMPRESSION: Diffuse spondylosis without significant interval change. Electronically Signed: Coleman Ureña MD at 16:55 EDT ,
== END | disposition home or self-care (01) ==
LOC: RAD 11:25
PROVIDERS: PCP Family Medicine Geriatric Medicine; Referring Provider Family Medicine Geriatric Medicine; Visit Provider Family Medicine Geriatric Medicine
DX: M25.551 Pain in right hip (principal); M47.816 Spondylosis without myelopathy or radiculopathy, lumbar region
CPT/HCPCS: 72114; 73502

== ENCOUNTER → 2022-04-27 | Outpatient (CLI) | payer MEDICARE, SELFPAY ==
[2022-04-27 15:40] LABS: Absolute Lymphocyte Count 1.65 X10^3/uL (0.83-4.51); Absolute Neutrophil Count 3.3 X10^3/uL (2.0-7.7); Basophil# 0.02 X10^3/uL; Basophil% 0.4 % (0-1); Eosinophil# 0.24 X10^3/uL; Eosinophils% 4.2 % (0-5); Hematocrit 40.2 % (37-47); Hemoglobin 13.4 g/dL (12.0-15.0); Lymphocyte # 1.65 X10^3/ul (0.83-4.51); Lymphocyte % 29.1 % (19-41); Mean Corp Hgb Conc 33.3 g/dL (32-36); Mean Corpuscular Hgb 32.5 pg (27.0-32.0); Mean Corpuscular Volume 97.6 fL (81-99); Mean Platelet Vol. 10.5 fl (6.2-12.0); Monocyte# 0.42 X10^3/uL; Monocyte% 7.4 % (0-10); NRBC Flagged by Analyzer 0 % (0-5); Neutrophil # 3.33 X10^3/uL (2.7-7.7); Neutrophil % 58.7 % (47-70); Platelet Count 247 K/mm3 (150-450); RBC Distribution Width SD 46.4 fl (35.1-43.9); Red Blood Count 4.12 M/mm3 (4.2-5.4); White Blood Count 5.7 K/mm3 (4.4-11.0)
[2022-04-27 16:19] LABS: ALB/GLOB Ratio 1.2 RATIO (0.9-2.4); AST(SGOT) 15 U/L (15-37); Alanine Aminotransfer ALT/SGPT 24 U/L (13-56); Albumin, Serum 3.6 g/dL (3.2-5.0); Alkaline Phosphatase 103 U/L (45-117); Anion Gap 6 (5-15); BUN 21 mg/dL (7-18); BUN/Creat Ratio 26.5 RATIO (10-20); Calcium,Total 9.2 mg/dL (8.5-10.1); Chloride 109 mmol/L (98-107); Creatinine, Serum 0.79 mg/dL (0.55-1.02); EST Glomerular Filtration Rate 76 mL/min (>60); Est Glom Filt Rate - Afr Amer 91 mL/min (>60); Glucose 98 mg/dL (74-106); Potassium 4.1 mmol/L (3.5-5.1); Protein, Total 6.6 g/dL (6.4-8.2); Sodium Level 141 mmol/L (136-145); Thyroid Stim Hormone (TSH) 0.59 uIU/mL (0.358-3.74)
[2022-04-27 17:08] LABS: Vitamin D,25 Hydroxy 34.2 ng/mL
== END | disposition home or self-care (01) ==
LOC: POLAB3 15:00
PROVIDERS: PCP Family Medicine Geriatric Medicine; Visit Provider Family Medicine Geriatric Medicine
DX: I10 Essential (primary) hypertension (principal); E55.9 Vitamin D deficiency, unspecified; N39.0 Urinary tract infection, site not specified
CPT/HCPCS: 36415; 80053; 82306; 84443; 85025; 87077; 87086; 87088; 87186

== ENCOUNTER → 2022-05-30 | Outpatient (CLI) | payer MEDICARE, SELFPAY | END | disposition home or self-care (01) | LOC: PSN 09:24 | PROVIDERS: PCP Family Medicine Geriatric Medicine; Referring Provider Family Medicine Geriatric Medicine; Visit Provider Family Medicine Geriatric Medicine | DX: R68.83 Chills (without fever) (principal) | CPT/HCPCS: 87635; 87804; 87807; U0003; U0005 ==

== ENCOUNTER → 2022-11-02 | Outpatient (CLI) | payer MEDICARE, SELFPAY ==
--- NOTE | 2022-11-02 15:15 | RAD_ITS ---
EXAM: XR LEFT FOOT COMPLETE, 3 OR MORE VIEWS CLINICAL INDICATION: PAIN L FOOT TECHNIQUE: Frontal, lateral and oblique views of the left foot. This report was created using [employer] report generation technology. COMPARISON: None. FINDINGS: BONES/JOINTS: The bones are osteopenic. There is a fracture of the base of the proximal first phalanx. There is a bony fusion of the first interphalangeal joint. No sclerotic or destructive changes observed. SOFT TISSUES: There are orthopedic ulises seen within the bones of midfoot. There appears to been a bony fusion of the hindfoot. No soft tissue swelling or gas. No radiopaque foreign body. RAD/Foot min 3 Views IMPRESSION: Fracture of the base of the proximal first phalanx. Electronically Signed: Abdfiatah Rios MD at 18:01 EST ,
[2022-11-02 17:02] LABS: Absolute Lymphocyte Count 1.68 X10^3/uL (0.83-4.51); Basophil# 0.02 X10^3/uL; Basophil% 0.4 % (0-1); Eosinophil# 0.16 X10^3/uL; Hematocrit 44.4 % (37-47); Hemoglobin 14.3 g/dL (12.0-15.0); Lymphocyte # 1.68 X10^3/ul (0.83-4.51); Lymphocyte % 31.8 % (19-41); Mean Corp Hgb Conc 32.2 g/dL (32-36); Mean Corpuscular Hgb 31.8 pg (27.0-32.0); Mean Corpuscular Volume 98.9 fL (81-99); Mean Platelet Vol. 10.9 fl (6.2-12.0); Monocyte# 0.39 X10^3/uL; Monocyte% 7.4 % (0-10); NRBC Flagged by Analyzer 0 % (0-5); Neutrophil # 3.02 X10^3/uL (2.7-7.7); Platelet Count 273 K/mm3 (150-450); RBC Distribution Width CV 12.6 % (11.6-14.6); RBC Distribution Width SD 45.7 fl (35.1-43.9); Red Blood Count 4.49 M/mm3 (4.2-5.4); White Blood Count 5.3 K/mm3 (4.4-11.0)
[2022-11-02 17:26] LABS: ALB/GLOB Ratio 1.1 RATIO (0.9-2.4); AST(SGOT) 28 U/L (15-37); Alanine Aminotransfer ALT/SGPT 44 U/L (13-56); Albumin, Serum 3.6 g/dL (3.2-5.0); Alkaline Phosphatase 117 U/L (45-117); Anion Gap 7 (5-15); BUN 13 mg/dL (7-18); BUN/Creat Ratio 16.3 RATIO (10-20); Calcium,Total 9.2 mg/dL (8.5-10.1); Chloride 106 mmol/L (98-107); EST Glomerular Filtration Rate 75 mL/min (>60); Est Glom Filt Rate - Afr Amer 90 mL/min (>60); Globulin 3.3 g/dL (2.2-4.2); Glucose 81 mg/dL (74-106); Potassium 3.9 mmol/L (3.5-5.1); Protein, Total 6.9 g/dL (6.4-8.2); Sodium Level 140 mmol/L (136-145); Thyroid Stim Hormone (TSH) 0.43 uIU/mL (0.358-3.74)
== END | disposition home or self-care (01) ==
PROVIDERS: PCP Family Medicine Geriatric Medicine; Referring Provider Family Medicine Geriatric Medicine; Visit Provider Family Medicine Geriatric Medicine
DX: E55.9 Vitamin D deficiency, unspecified (principal); I10 Essential (primary) hypertension; M79.672 Pain in left foot
CPT/HCPCS: 36415; 73630; 80053; 82306; 84443; 85025

== ENCOUNTER → 2023-05-02 | Outpatient (CLI) | payer MEDICARE, SELFPAY | END | disposition home or self-care (01) | LOC: PSN 12:24 | PROVIDERS: PCP Family Medicine Geriatric Medicine; Referring Provider Family Medicine Geriatric Medicine; Visit Provider Family Medicine Geriatric Medicine | DX: R68.83 Chills (without fever) (principal) | CPT/HCPCS: 87635; 87804; 87807; C9803 ==

== ENCOUNTER → 2023-05-09 | Outpatient (CLI) | payer MEDICARE, SELFPAY ==
[2023-05-09 16:05] LABS: Absolute Lymphocyte Count 2.32 X10^3/uL (0.83-4.51); Absolute Neutrophil Count 3.4 X10^3/uL (2.0-7.7); Basophil# 0.04 X10^3/uL; Basophil% 0.6 % (0-1); Eosinophil# 0.23 X10^3/uL; Eosinophils% 3.6 % (0-5); Hematocrit 43.7 % (37-47); Hemoglobin 14.3 g/dL (12.0-15.0); Lymphocyte # 2.32 X10^3/ul (0.83-4.51); Lymphocyte % 36.1 % (19-41); Mean Corp Hgb Conc 32.7 g/dL (32-36); Mean Corpuscular Hgb 31.6 pg (27.0-32.0); Mean Corpuscular Volume 96.5 fL (81-99); Mean Platelet Vol. 11.1 fl (6.2-12.0); Monocyte# 0.42 X10^3/uL; Monocyte% 6.5 % (0-10); NRBC Flagged by Analyzer 0 % (0-5); Neutrophil % 52.9 % (47-70); Platelet Count 276 K/mm3 (150-450); RBC Distribution Width CV 13.1 % (11.6-14.6); RBC Distribution Width SD 46.5 fl (35.1-43.9); Red Blood Count 4.53 M/mm3 (4.2-5.4); White Blood Count 6.4 K/mm3 (4.4-11.0)
[2023-05-09 16:26] LABS: Vitamin D,25 Hydroxy 45.4 ng/mL
[2023-05-09 16:46] LABS: ALB/GLOB Ratio 1.1 RATIO (0.9-2.4); AST(SGOT) 23 U/L (15-37); Alanine Aminotransfer ALT/SGPT 38 U/L (13-56); Albumin, Serum 3.6 g/dL (3.2-5.0); Alkaline Phosphatase 146 U/L (45-117); Anion Gap 7 (5-15); BUN 21 mg/dL (7-18); BUN/Creat Ratio 28.6 RATIO (10-20); Calcium,Total 9.2 mg/dL (8.5-10.1); Chloride 106 mmol/L (98-107); Creatinine, Serum 0.73 mg/dL (0.55-1.02); EST Glomerular Filtration Rate 82 mL/min (>60); Est Glom Filt Rate - Afr Amer 99 mL/min (>60); Globulin 3.2 g/dL (2.2-4.2); Glucose 88 mg/dL (74-106); Protein, Total 6.8 g/dL (6.4-8.2); Sodium Level 139 mmol/L (136-145); Thyroid Stim Hormone (TSH) 1.19 uIU/mL (0.358-3.74)
== END | disposition home or self-care (01) ==
PROVIDERS: PCP Family Medicine Geriatric Medicine; Visit Provider Family Medicine Geriatric Medicine
DX: I10 Essential (primary) hypertension (principal); E55.9 Vitamin D deficiency, unspecified
CPT/HCPCS: 36415; 80053; 82306; 84443; 85025

== ENCOUNTER → 2023-11-05 | Outpatient (CLI) | payer MEDICARE, SELFPAY ==
[2023-11-05 17:06] LABS: Absolute Lymphocyte Count 1.74 X10^3/uL (0.83-4.51); Basophil# 0.02 X10^3/uL; Basophil% 0.4 % (0-1); Eosinophil# 0.21 X10^3/uL; Eosinophils% 3.9 % (0-5); Hematocrit 42.5 % (37-47); Hemoglobin 13.7 g/dL (12.0-15.0); Lymphocyte # 1.74 X10^3/ul (0.83-4.51); Lymphocyte % 32.3 % (19-41); Mean Corp Hgb Conc 32.2 g/dL (32-36); Mean Corpuscular Volume 96.2 fL (81-99); Mean Platelet Vol. 11.2 fl (6.2-12.0); Monocyte# 0.41 X10^3/uL; Monocyte% 7.6 % (0-10); NRBC Flagged by Analyzer 0 % (0-5); Neutrophil # 2.99 X10^3/uL (2.7-7.7); Neutrophil % 55.6 % (47-70); Platelet Count 231 K/mm3 (150-450); RBC Distribution Width CV 12.8 % (11.6-14.6); RBC Distribution Width SD 45.7 fl (35.1-43.9); Red Blood Count 4.42 M/mm3 (4.2-5.4); White Blood Count 5.4 K/mm3 (4.4-11.0)
[2023-11-05 17:44] LABS: Vitamin D,25 Hydroxy 48.9 ng/mL
[2023-11-05 17:49] LABS: ALB/GLOB Ratio 1.1 RATIO (0.9-2.4); AST(SGOT) 37 U/L (15-37); Alanine Aminotransfer ALT/SGPT 43 U/L (13-56); Albumin, Serum 3.6 g/dL (3.2-5.0); Alkaline Phosphatase 141 U/L (45-117); Anion Gap 6 (5-15); BUN 17 mg/dL (7-18); BUN/Creat Ratio 24.9 RATIO (10-20); Calcium,Total 9.1 mg/dL (8.5-10.1); Chloride 111 mmol/L (98-107); Creatinine, Serum 0.68 mg/dL (0.55-1.02); EST Glomerular Filtration Rate 89 mL/min (>60); Est Glom Filt Rate - Afr Amer 108 mL/min (>60); Globulin 3.4 g/dL (2.2-4.2); Glucose 98 mg/dL (74-106); Sodium Level 141 mmol/L (136-145); Thyroid Stim Hormone (TSH) 0.56 uIU/mL (0.358-3.74)
== END | disposition home or self-care (01) ==
LOC: POLAB3 15:48
PROVIDERS: PCP Family Medicine Geriatric Medicine; Visit Provider Family Medicine Geriatric Medicine
DX: I10 Essential (primary) hypertension (principal); E55.9 Vitamin D deficiency, unspecified
CPT/HCPCS: 36415; 80053; 82306; 84443; 85025

== ENCOUNTER → 2023-12-03 | Outpatient (CLI) | payer MEDICARE, SELFPAY ==
--- NOTE | 2023-12-03 08:50 | BI_ITS ---
MAMMOGRAPHY - BILATERAL SCREENING REASON FOR EXAM: Female, 73 years old. Routine annual screening examination. PERTINENT HISTORY: Mother with breast cancer. TECHNIQUE: Digital bilateral breast parveen (3D mammographic acquisition) in the CC and MLO projections. 2-D mediolateral oblique (MLO) and craniocaudad (CC) views of both breasts were obtained. CAD: Full Field Digital Mammography with Computer Added Detection was performed. COMPARISON: Comparison is made with prior study dated February 01, 2022 and March 14, 2018. FINDINGS: Breast Composition: The breasts are almost entirely fatty. There are no dominant masses or suspicious calcifications. No other significant abnormalities are identified. There has been no significant change since the prior study. BI/SCRN MAMM (CAD)W/PARVEEN BILAT IMPRESSION: Stable bilateral screening mammogram. Yearly follow-up mammogram recommended. (A) ASSESSMENT CATEGORY: BIRADS Category 1: Negative. A letter regarding these results will be sent to the patient by the facility within 30 days. Approximately 10% of breast cancers are not detected by mammography. A normal mammogram should not delay biopsy of a clinically suspicious abnormality. [id number] Electronically Signed: Kale Peralta MD at 10:25 EST ,
== END | disposition home or self-care (01) ==
LOC: OPBI 08:48
PROVIDERS: PCP Family Medicine Geriatric Medicine; Referring Provider Family Medicine Geriatric Medicine; Visit Provider Family Medicine Geriatric Medicine
DX: Z12.31 Encounter for screening mammogram for malignant neoplasm of breast (principal)
CPT/HCPCS: 77063; 77067

== ENCOUNTER → 2023-12-20 | Outpatient (CLI) | payer MEDICARE, SELFPAY ==
[2023-12-20 17:30] LABS: Absolute Lymphocyte Count 1.67 X10^3/uL (0.83-4.51); Basophil# 0.02 X10^3/uL; Basophil% 0.4 % (0-1); Eosinophil# 0.17 X10^3/uL; Eosinophils% 3.3 % (0-5); Hematocrit 40.7 % (37-47); Hemoglobin 13.4 g/dL (12.0-15.0); Lymphocyte # 1.67 X10^3/ul (0.83-4.51); Lymphocyte % 32.2 % (19-41); Mean Corp Hgb Conc 32.9 g/dL (32-36); Mean Corpuscular Hgb 31.4 pg (27.0-32.0); Mean Corpuscular Volume 95.3 fL (81-99); Mean Platelet Vol. 10.6 fl (6.2-12.0); Monocyte# 0.33 X10^3/uL; Monocyte% 6.4 % (0-10); NRBC Flagged by Analyzer 0 % (0-5); Neutrophil # 2.97 X10^3/uL (2.7-7.7); Neutrophil % 57.3 % (47-70); Platelet Count 235 K/mm3 (150-450); RBC Distribution Width CV 12.8 % (11.6-14.6); RBC Distribution Width SD 44.7 fl (35.1-43.9); Red Blood Count 4.27 M/mm3 (4.2-5.4); White Blood Count 5.2 K/mm3 (4.4-11.0)
[2023-12-20 17:33] LABS: ALB/GLOB Ratio 1.1 RATIO (0.9-2.4); AST(SGOT) 40 U/L (15-37); Alanine Aminotransfer ALT/SGPT 47 U/L (13-56); Albumin, Serum 3.5 g/dL (3.2-5.0); Alkaline Phosphatase 147 U/L (45-117); Anion Gap 3 (5-15); BUN 24 mg/dL (7-18); BUN/Creat Ratio 35.1 RATIO (10-20); Calcium,Total 9.4 mg/dL (8.5-10.1); Chloride 112 mmol/L (98-107); Creatinine, Serum 0.68 mg/dL (0.55-1.02); EST Glomerular Filtration Rate 89 mL/min (>60); Est Glom Filt Rate - Afr Amer 108 mL/min (>60); Globulin 3.3 g/dL (2.2-4.2); Glucose 103 mg/dL (74-106); Potassium 3.8 mmol/L (3.5-5.1); Protein, Total 6.8 g/dL (6.4-8.2); Sodium Level 139 mmol/L (136-145)
--- OUTSIDE RECORDS SUMMARY | 2023-12-20 19:25 | XMS RPT_ITS | CCD ---
Author Name Unknown Address [address] [place] [address] Organization [facility] Care Team Providers Care Double Spindle Shaper Operator Name Role Phone Bossman Mcbride Y Unavailable Unavailable Jitendra Mcbrideumi Y Unavailable Unavailable Gabriela RN, Fabiola Reynoso Unavailable Unavailable Medications Completed/Discontinued Medications Medication Drug Class(es) Dates Sig (Normalized) Sig (Original) aspirin 81 mg oral tablet (6 sources) Nonsteroidal Anti-inflammatory Drug Start: 04-28-2011 take 1 tablet by mouth once daily ASPIRIN 81 MG TABS One tablet by mouth daily ASPIRIN [id number] Meli Clark Problems Active Problems Problem Classification Problem Date Documented Da te Episodic/Chronic Cardiac dysrhythmias (12 sources) Permanent atrial fibrillation ; Translations: [Atrial flutter] Onset: 04-28-2011 Resolved: 05-15-2017 06-01-2016 Chronic Disorders of lipid metabolism (3 sources) Hyperlipidemia; Translations: [Hyperlipidemia, unspecified] Onset: 04-28-2011 04-28-2011 Chronic Heart valve disorders (9 sources) Nonrheumatic tricuspid (valve) insufficiency; Translations: [Nonrheumatic mitral (valve) prolapse] Onset: 04-28-2011 05-15-2017 Chronic Unclassified (11 sources) Body mass index (BMI) 34.0-34.9, adult; Translations: [Body mass index (BMI) 33.0-33.9, adult] Onset: 04-01-2014 Resolved: 12-01-2015 10-05-2014 Chronic Unclassified (4 sources) Body mass index (BMI) 33.0-33.9, adult; Translations: [Body mass index (BMI) 35.0-35.9, adult] Onset: 04-01-2014 Resolved: 12-01-2015 12-01-2015 Chronic Past or Other Problems Problem Classification Problem Date Documented Date Episodic/Chronic Cardiac dysrhythmias (3 sources) Palpitations; Translations: [Palpitations] Onset: 04-28-2011 04-28-2011 Episodic Conditions associated with dizziness or vertigo (6 sources) Dizziness and giddiness; Translations: [Dizziness and giddiness] Onset: 04-28-2011 Resolved: 05-15-2017 04-28-2011 Episodic Nonspecific chest pain (6 sources) Chest pain, unspecified; Translations: [Chest pain, unspecified] Onset: 04-28-2011 Resolved: 05-15-2017 05-15-2017 Episodic Other lower respiratory disease (6 sources) Dyspnea; Translations: [Shortness of breath] Onset: 04-28-2011 Resolved: 05-15-2017 05-15-2017 Episodic Unclassified (6 sources) FH: Hypertension; Translations: [Edema] Onset: 04-28-2011 10-05-2014 Episodic Unclassified (6 sources) Preoperative cardiovascular examination ; Translations: [Encounter for preprocedural cardiovascular examination] Onset: 10-05-2014 Resolved: 12-01-2015 10-05-2014 Results Test Name Value Interpretation Reference Range Facil ity Vital Signs Date Time Vital Sign Value Performing Clinician Viraj ochoa 05-18-2017 11:03-0400 BMI (Body Mass Index) 34.45 kg/m2 [facility] Work Phone: 05-18-2017 11:03-0400 BP Diastolic 60 mm[Hg] Swink[facility]tvis [facility] Work Phone: 05-18-2017 11:03-0400 BP Systolic 102 mm[Hg] Crambu DeFinis [facility] Work Phone: 05-18-2017 11:03-0400 Height 160.02 cm Crambu DeFinis [facility] Work Phone: 05-18-2017 11:03-0400 Pulse (Heart Rate) 68 /min Crambu DeFinis [facility] Work Phone: 05-18-2017 11:03-0400 Respiratory Rate 20 /min Crambu DeFinis [facility] Work Phone: 05-18-2017 11:03-0400 Weight 88.23 kg Crambu DeFinis [facility] Work Phone: 06-01-2016 14:31-0400 BMI (Body Mass Index) 35.03 kg/m2 Fabiola Ochoa RN [facility] Work Phone: 06-01-2016 14:31-0400 BP Diastolic 68 mm[Hg] Fabiola Ochoa RN [facility] Work Phone: 06-01-2016 14:31-0400 BP Systolic 110 mm[Hg] Fabiola Ochoa RN [facility] Work Phone: 06-01-2016 14:31-0400 BSA (Body Surface Area) 1.93 m2 Fabiola Ochoa RN [facility] Work Phone: 06-01-2016 14:31-0400 Pulse (Heart Rate) 72 /min Fabiola Ochoa RN [facility] Work Phone: 06-01-2016 14:31-0400 Respiratory Rate 16 /min Fabiola Ochoa RN [facility] Work Phone: 06-01-2016 14:31-0400 Weight 89.72 kg Fabiola Ochoa RN [facility] Work Phone: 02-22-2012 11:41-0400 Height 160.02 cm Fabiola Ochoa RN [facility] Work Phone: Procedures Date Procedure Procedure Detail Performing Clinician Start: 05-18-2017 End: 05-18-2017 Follow Up Appt 1 year Claude Luevano Start: 05-18-2017 End: 05-18-2017 PFM Claude Good MD Start: 06-01-2016 End: 06-02-2016 *BMP Sondra Bhatia PA-C Work Phone: Start: 06-01-2016 End: 06-01-2016 Follow Up Appt 6 months Sondra bahena PA-C Work Phone: Start: 06-01-2016 End: 06-01-2016 Follow Up Appt Other Sondra martin PA-C Work Phone: Start: 06-01-2016 End: 06-01-2016 PFM Sondra Bhatia PA-C Work Phone: Start: 06-01-2016 End: 06-02-2016 *BMP Sondra Bhatia PA-C Work Phone: Start: 06-01-2016 End: 06-01-2016 Follow Up Appt 6 months Sondra bahena PA-C Work Phone: Start: 06-01-2016 End: 06-01-2016 Follow Up Appt Other Sondra martin PA-C Work Phone: Start: 06-01-2016 End: 06-01-2016 PFM Sondra Bhatia PA-C Work Phone: Start: 12-01-2015 End: 06-01-2016 Ecg routine ecg w/least 12 lds w/i&r Claude Good MD Start: 12-01-2015 End: 06-01-2016 Follow Up Appt 6 months Claude Good MD Start: 12-01-2015 End: 06-01-2016 MMM Claude Good MD Start: 12-01-2015 End: 06-01-2016 Electrocardiogram, complete Claude rich MD Start: 12-01-2015 End: 06-01-2016 Follow Up Appt 6 months Claude Good MD Start: 12-01-2015 End: 06-01-2016 MMAndria Good MD Start: 04-21-2015 End: 04-22-2015 Documentation of current medications Sondra Bhatia PA-C Work Phone: Start: 04-21-2015 End: 04-21-2015 Follow Up Appt 6 months Sondra bahena PA-C Work Phone: Start: 04-21-2015 End: 04-21-2015 PFM Sondra Bhatia PA-C Work Phone: Start: 04-21-2015 End: 04-22-2015 Documentation of current medications Sondra Bhatia PA-C Work Phone: Start: 04-21-2015 End: 04-21-2015 Follow Up Appt 6 months Sondra bahena PA-C Work Phone: Start: 04-21-2015 End: 04-21-2015 PFM Sondra Bhatia PA-C Work Phone: Start: 10-05-2014 End: 10-06-2014 Ecg routine ecg w/least 12 lds w/i&r Claude Good MD Start: 10-05-2014 End: 10-06-2014 Follow Up Appt 6 months Claude Good MD Start: 10-05-2014 End: 10-06-2014 MMM Claude Good MD Start: 10-05-2014 End: 10-06-2014 Electrocardiogram, complete Claude rich MD Start: 10-05-2014 End: 10-06-2014 Follow Up Appt 6 months Claude Good MD Start: 10-05-2014 End: 10-06-2014 MMM Claude Good MD Start: 04-01-2014 End: 04-14-2015 Follow Up Appt 6 months Claude Good MD Start: 04-01-2014 End: 04-21-2015 Follow Up Appt Other Claude Good MD Start: 04-01-2014 End: 04-14-2015 MMM Claude Good MD Start: 04-01-2014 End: 04-14-2015 Follow Up Appt 6 months Claude Good MD Start: 04-01-2014 End: 04-21-2015 Follow Up Appt Other Claude Good MD Start: 04-01-2014 End: 04-14-2015 MMM Claude Good MD Start: 06-04-2013 End: 06-04-2013 Ecg routine ecg w/least 12 lds w/i&r Sondra Bhatia PA-C Work Phone: Start: 06-04-2013 End: 06-04-2013 Follow Up Appt 6 months Sondra bahena PA-C Work Phone: Start: 06-04-2013 End: 06-04-2013 PFM Sondra Bhatia PA-C Work Phone: Start: 06-04-2013 End: 06-04-2013 Electrocardiogram, complete Sondra Funez PA-C Work Phone: Start: 06-04-2013 End: 06-04-2013 Follow Up Appt 6 months Sondra bahena PA-C Work Phone: Start: 06-04-2013 End: 06-04-2013 PF Sondra Bhatia PA-C Work Phone: Start: 08-14-2012 End: 08-14-2012 Ecg routine ecg w/least 12 lds w/i&r Claude Good MD Start: 08-14-2012 End: 08-14-2012 Follow Up Appt 6 months Claude Good MD Start: 08-14-2012 End: 08-14-2012 Electrocardiogram, complete Claude rich MD Start: 08-14-2012 End: 08-14-2012 Follow Up Appt 6 months Claude Good MD Start: 02-22-2012 End: 02-22-2012 Ecg routine ecg w/least 12 lds w/i&r Claude Good MD Start: 02-22-2012 End: 03-04-2013 Follow Up Appt 6 months Claude Good MD Start: 02-22-2012 End: 02-22-2012 Electrocardiogram, complete Claude rich MD Start: 02-22-2012 End: 03-04-2013 Follow Up Appt 6 months Claude Good MD Plan of Treatment Date Care Activity Detail Author Start: 05-22-2018 End: 05-22-2018 Appointment Appointment [facility] Work Phone: Start: 05-18-2017 End: 05-18-2017 Appointment Appointment [facility] Work Phone: Start: 05-18-2017 End: 05-18-2017 Follow Up Appt 1 year Follow Up Appt 1 year [facility] Work Phone: Start: 05-18-2017 End: 05-18-2017 PFM PFM [facility] Work Phone: Start: 06-01-2016 End: 06-02-2016 *BMP *BMP [facility] Work Phone: Start: 06-01-2016 End: 06-01-2016 Follow Up Appt 6 months Follow Up Appt 6 months [facility] Work Phone: Start: 06-01-2016 End: 06-01-2016 Follow Up Appt Other Follow Up Appt Other [facility] Work Phone: Start: 06-01-2016 End: 06-01-2016 PFM PFM [facility] Work Phone: Start: 06-01-2016 End: 06-02-2016 *BMP *BMP [facility] Work Phone: Start: 06-01-2016 End: 06-01-2016 Follow Up Appt 6 months Follow Up Appt 6 months [facility] Work Phone: Start: 06-01-2016 End: 06-01-2016 Follow Up Appt Other Follow Up Appt Other [facility] Work Phone: Start: 06-01-2016 End: 06-01-2016 PFM PFM [facility] Work Phone: Start: 12-01-2015 End: 06-01-2016 Ecg routine ecg w/least 12 lds w/i&r EKG (In office) [facility] Work Phone: Start: 12-01-2015 End: 06-01-2016 Follow Up Appt 6 months Follow Up Appt 6 months [facility] Work Phone: Start: 12-01-2015 End: 06-01-2016 MMM MMM [facility] Work Phone: Start: 12-01-2015 End: 06-01-2016 Electrocardiogram, complete EKG (In office) [facility] Work Phone: Start: 12-01-2015 End: 06-01-2016 Follow Up Appt 6 months Follow Up Appt 6 months [facility] Work Phone: Start: 12-01-2015 End: 06-01-2016 MMM MMM [facility] Work Phone: Start: 04-21-2015 End: 04-21-2015 Follow Up Appt 6 months Follow Up Appt 6 months [facility] Work Phone: Start: 04-21-2015 End: 04-21-2015 PFM PFM [facility] Work Phone: Start: 04-21-2015 End: 04-21-2015 Follow Up Appt 6 months Follow Up Appt 6 months [facility] Work Phone: Start: 04-21-2015 End: 04-21-2015 PFM PFM [facility] Work Phone: Start: 10-05-2014 End: 10-06-2014 Ecg routine ecg w/least 12 lds w/i&r EKG (In office) [facility] Work Phone: Start: 10-05-2014 End: 10-06-2014 Follow Up Appt 6 months Follow Up Appt 6 months [facility] Work Phone: Start: 10-05-2014 End: 10-06-2014 MMM MMM [facility] Work Phone: Start: 10-05-2014 End: 10-06-2014 Electrocardiogram, complete EKG (In office) [facility] Work Phone: Start: 10-05-2014 End: 10-06-2014 Follow Up Appt 6 months Follow Up Appt 6 months [facility] Work Phone: Start: 10-05-2014 End: 10-06-2014 MMM MMM [facility] Work Phone: Start: 04-01-2014 End: 04-14-2015 Follow Up Appt 6 months Follow Up Appt 6 months [facility] Work Phone: Start: 04-01-2014 End: 04-21-2015 Follow Up Appt Other Follow Up Appt Other [facility] Work Phone: Start: 04-01-2014 End: 04-14-2015 MMM MMM [facility] Work Phone: Start: 04-01-2014 End: 04-14-2015 Follow Up Appt 6 months Follow Up Appt 6 months [facility] Work Phone: Start: 04-01-2014 End: 04-21-2015 Follow Up Appt Other Follow Up Appt Other [facility] Work Phone: Start: 04-01-2014 End: 04-14-2015 MMM MMM [facility] Work Phone: Start: 06-04-2013 End: 06-04-2013 Ecg routine ecg w/least 12 lds w/i&r EKG (In office) [facility] Work Phone: Start: 06-04-2013 End: 06-04-2013 Follow Up Appt 6 months Follow Up Appt 6 months [facility] Work Phone: Start: 06-04-2013 End: 06-04-2013 PFM PFM [facility] Work Phone: Start: 06-04-2013 End: 06-04-2013 Electrocardiogram, complete EKG (In office) [facility] Work Phone: Start: 06-04-2013 End: 06-04-2013 Follow Up Appt 6 months Follow Up Appt 6 months [facility] Work Phone: Start: 06-04-2013 End: 06-04-2013 PFM PFM [facility] Work Phone: Start: 08-14-2012 End: 08-14-2012 Ecg routine ecg w/least 12 lds w/i&r EKG (In office) [facility] Work Phone: Start: 08-14-2012 End: 08-14-2012 Follow Up Appt 6 months Follow Up Appt 6 months [facility] Work Phone: Start: 08-14-2012 End: 08-14-2012 Electrocardiogram, complete EKG (In office) [facility] Work Phone: Start: 08-14-2012 End: 08-14-2012 Follow Up Appt 6 months Follow Up Appt 6 months [facility] Work Phone: Start: 02-22-2012 End: 02-22-2012 Ecg routine ecg w/least 12 lds w/i&r EKG (In office) [facility] Work Phone: Start: 02-22-2012 End: 03-04-2013 Follow Up Appt 6 months Follow Up Appt 6 months [facility] Work Phone: Start: 02-22-2012 End: 02-22-2012 Electrocardiogram, complete EKG (In office) [facility] Work Phone: Start: 02-22-2012 End: 03-04-2013 Follow Up Appt 6 months Follow Up Appt 6 months [facility] Work Phone: Additional Source Comments FOR RECORDS PERTAINING TO PATIENTS WHO ARE OR HAVE BEEN ENROLLED IN A CHEMICAL DEPENDENCY/SUBSTANCEABUSE PROGRAM, SOME INFORMATION MAY BE OMITTED. This clinical summary was aggregated from multiple sources. Caution should be exercised in using it in the provision of clinical care. This summary normalizes information from multiple sources, and as a consequence, information in this document may materially change the coding, format and clinical context of patient data. In addition, data may be omitted in some cases. CLINICAL DECISIONS SHOULD BE BASED ON THE PRIMARY CLINICAL RECORDS. [employer] [facility]. provides no warranty or guarantee of the accuracy or completeness of information in this document.
== END | disposition home or self-care (01) ==
LOC: POLAB3 16:50
PROVIDERS: PCP Family Medicine Geriatric Medicine; Visit Provider Family Medicine Geriatric Medicine
DX: E78.5 Hyperlipidemia, unspecified (principal)
CPT/HCPCS: 36415; 80053; 85025

== ENCOUNTER → 2023-12-20 | Outpatient (CLI) | payer MEDICARE, SELFPAY ==
--- NOTE | 2023-12-20 16:56 | CT_ITS ---
INDICATION: ABD PAIN EXAMINATION: CT Abdomen And Pelvis W/ Contrast Injection TECHNIQUE: Helically acquired images were obtained of the abdomen and pelvis after IV contrast. A radiation dose optimization technique was used for this scan. IV Contrast dosage and agent: Oral and amp; IV Gastrografin and amp; 100mL Isovue-370 Oral contrast: None. COMPARISON: None. FINDINGS: Visualized lung bases: Unremarkable Liver: Unremarkable Gallbladder: Surgically absent. Spleen: Unremarkable Pancreas: Unremarkable Adrenal Glands: Unremarkable Kidneys: Mild bilateral renal atrophy. Vasculature: Mild scattered aortoiliac atherosclerotic calcifications. GI Tract: Scattered diverticula throughout the colon without evidence of inflammation. Small duodenal diverticulum. Lymphadenopathy: None Peritoneum: No ascites. 3.7 x 2.6 cm cystic structure in the left lower abdominal quadrant anterior to the psoas muscle measuring water density. Bladder: Unremarkable Reproductive organs: Unremarkable Bones/Soft tissues: There are diffuse degenerative changes of the spine. Small bilateral fat-containing inguinal hernias. CT/Abdomen/Pelvis WITH Contrast IMPRESSION: 3.7 cm cystic structure in the left lower quadrant is indeterminate. Differential includes enteric duplication cyst, lymphocele and other etiologies. Small bilateral fat-containing inguinal hernias. Duodenal diverticulum. Electronically Signed: Lucho Corbin MD at 21:11 EST ,
--- OUTSIDE RECORDS SUMMARY | 2023-12-20 19:27 | XMS RPT_ITS | CCD ---
Author Name Unknown Address [address] [place] [address] Organization [facility] Care Team Providers Care Lifestyle Director Name Role Phone Bossman Mcbride Y Unavailable Unavailable Jitendra Mcbrideumi Y Unavailable Unavailable Gabriela RN, Fabiola Reynoso Unavailable Unavailable Medications Completed/Discontinued Medications Medication Drug Class(es) Dates Sig (Normalized) Sig (Original) aspirin 81 mg oral tablet (6 sources) Nonsteroidal Anti-inflammatory Drug Start: 04-28-2011 take 1 tablet by mouth once daily ASPIRIN 81 MG TABS One tablet by mouth daily ASPIRIN [id number] Meil Clark Problems Active Problems Problem Classification Problem [...] 11:03-0400 BMI (Body Mass Index) 34.45 kg/m2 [facility] Work Phone: 05-18-2017 11:03-0400 BP Diastolic 60 mm[Hg] [employer] Work Phone: 05-18-2017 11:03-0400 BP Systolic 102 mm[Hg] Appoet DeFinis [facility] Work Phone: 05-18-2017 11:03-0400 Height 160.02 cm [facility] DeFinis [facility] Work Phone: 05-18-2017 11:03-0400 Pulse (Heart Rate) 68 /min [facility] DeFinis [facility] Work Phone: 05-18-2017 11:03-0400 Respiratory Rate 20 /min [facility] DeFinis [facility] Work Phone: 05-18-2017 11:03-0400 Weight 88.23 kg [facility] DeFinis [facility] Work Phone: 06-01-2016 14:31-0400 BMI (Body Mass Index) 35.03 kg/m2 Fabiola Ochoa RN [facility] Work Phone: 06-01-2016 14:31-0400 BP Diastolic 68 mm[Hg] Fabiola Ochoa RN [facility] Work Phone: 06-01-2016 14:31-0400 BP Systolic 110 mm[Hg] Fabiola Ochoa RN [facility] Work Phone: 06-01-2016 14:31-0400 BSA (Body Surface Area) 1.93 m2 Fabiola Ochoa RN [facility] Work Phone: 06-01-2016 14:31-0400 Pulse [...] Author Start: 05-22-2018 End: 05-22-2018 Appointment Appointment [facility] Work Phone: Start: 05-18-2017 End: 05-18-2017 Appointment Appointment [facility] Work Phone: Start: 05-18-2017 End: 05-18-2017 Follow Up Appt 1 year Follow Up Appt 1 year [facility] Work Phone: Start: 05-18-2017 End: 05-18-2017 PFM PFM [facility] Work Phone: Start: 06-01-2016 End: 06-02-2016 *BMP *BMP [facility] Work Phone: Start: 06-01-2016 End: 06-01-2016 Follow Up Appt 6 months Follow Up Appt 6 months [facility] Work Phone: Start: 06-01-2016 End: 06-01-2016 Follow Up Appt Other Follow Up Appt Other [facility] Work Phone: Start: 06-01-2016 End: 06-01-2016 PFM PFM [facility] Work Phone: Start: 06-01-2016 End: 06-02-2016 *BMP *BMP [facility] Work Phone: Start: 06-01-2016 End: 06-01-2016 Follow Up Appt 6 months Follow Up Appt 6 months [facility] Work Phone: Start: 06-01-2016 End: 06-01-2016 Follow Up Appt Other Follow Up Appt Other [facility] Work Phone: Start: 06-01-2016 End: 06-01-2016 PFM PFM [facility] Work Phone: Start: 12-01-2015 End: 06-01-2016 Ecg routine ecg w/least 12 lds w/i&r EKG (In office) [facility] Work Phone: Start: 12-01-2015 End: 06-01-2016 Follow Up Appt 6 months Follow Up Appt 6 months [facility] Work Phone: Start: 12-01-2015 End: 06-01-2016 MMM MMM [facility] Work Phone: Start: 12-01-2015 End: 06-01-2016 Electrocardiogram, complete EKG (In office) [facility] Work Phone: Start: 12-01-2015 End: 06-01-2016 Follow Up Appt 6 months Follow Up Appt 6 months [facility] Work Phone: Start: 12-01-2015 End: 06-01-2016 MMM MMM [facility] Work Phone: Start: 04-21-2015 End: 04-21-2015 Follow Up Appt 6 months Follow Up Appt 6 months [facility] Work Phone: Start: 04-21-2015 [...] End: 10-06-2014 Electrocardiogram, complete EKG (In office) [facility] Work Phone: Start: 10-05-2014 End: 10-06-2014 Follow Up Appt 6 months Follow Up Appt 6 months [facility] Work Phone: Start: 10-05-2014 End: 10-06-2014 MMM MMM [facility] Work Phone: Start: 04-01-2014 End: 04-14-2015 Follow Up Appt 6 months Follow Up Appt 6 months [facility] Work Phone: Start: 04-01-2014 End: 04-21-2015 Follow Up Appt Other Follow Up Appt Other [facility] Work Phone: Start: 04-01-2014 End: 04-14-2015 MMM MMM [facility] Work Phone: Start: 04-01-2014 End: 04-14-2015 Follow Up Appt 6 months Follow Up Appt 6 months [facility] Work Phone: Start: 04-01-2014 End: 04-21-2015 Follow Up Appt Other Follow Up Appt Other [facility] Work Phone: Start: 04-01-2014 End: 04-14-2015 MMM MMM [facility] Work Phone: Start: 06-04-2013 End: 06-04-2013 Ecg routine ecg w/least 12 lds w/i&r EKG (In office) [facility] Work Phone: Start: 06-04-2013 End: 06-04-2013 Follow Up Appt 6 months Follow Up Appt 6 months [facility] Work Phone: Start: 06-04-2013 [...] w/least 12 lds w/i&r EKG (In office) [facility] Work Phone: Start: 08-14-2012 End: 08-14-2012 Follow Up Appt 6 months Follow Up Appt 6 months [facility] Work Phone: Start: 08-14-2012 End: 08-14-2012 Electrocardiogram, complete EKG (In office) [facility] Work Phone: Start: 08-14-2012 End: [...] End: 02-22-2012 Electrocardiogram, complete EKG (In office) [facility] Work Phone: Start: 02-22-2012 End: [...] BE BASED ON THE PRIMARY CLINICAL RECORDS. [facility]. provides no warranty or guarantee of the accuracy or completeness of information in this document.
[2023-12-20 19:46] LABS: CREATININE FINGERSTICK < 1.0 mg/dL (0.55-1.02)
== END | disposition home or self-care (01) ==
LOC: CT 16:55
PROVIDERS: PCP Family Medicine Geriatric Medicine; Referring Provider Family Medicine Geriatric Medicine; Visit Provider Family Medicine Geriatric Medicine
DX: R10.9 Unspecified abdominal pain (principal)
CPT/HCPCS: 74177; Q9967

== ENCOUNTER → 2023-12-24 | Outpatient (CLI) | payer MEDICARE, SELFPAY | END | disposition home or self-care (01) | PROVIDERS: PCP Family Medicine Geriatric Medicine; Referring Provider Family Medicine Geriatric Medicine; Visit Provider Family Medicine Geriatric Medicine | DX: R19.7 Diarrhea, unspecified (principal) | CPT/HCPCS: 82274; 83630; 87177; 87209; 87493 ==

== ENCOUNTER → 2024-01-02 | Outpatient (CLI) | payer MEDICARE, SELFPAY ==
--- NOTE | 2024-01-02 07:00 | ECHOD_ITS ---
Reason For Study: MVP Procedure This was a 2D Doppler, Color Flow transthoracic echocardiogram. Exam performed in department. Left Ventricle Normal LV size. Mild concentric left ventricular hypertrophy. The left ventricular ejection fraction is 60 %. Diastolic function is indeterminate. Right Ventricle Normal right ventricle. Atria The left atrium is severely enlarged. The right atrium is mildly enlarged. Mitral Valve Mild mitral annular calcification. Moderate (2+) anteriorly directed mitral valve insufficiency. Tricuspid Valve Trivial tricuspid valve insufficiency. Right ventricular systolic pressure estimated to be 43 mmHg. Aortic Valve Trisinus/trileaflet aortic valve. Pulmonic Valve The pulmonic valve is not well visualized. Trivial pulmonic valve insufficiency. Great Vessels Normal sized aortic root. Pericardium/Pleural No pericardial effusion. MMode/2D Measurements & Calculations LVIDd: 4.9 cm IVSd: 1.2 cm Ao root diam: 3.1 cm LVIDs: 2.8 cm LVPWd: 1.0 cm RVDd: 2.9 cm FS: 43.2 % LAV(MOD-bp): 105.6 ml LVAd ap4: 21.8 cm2 LVAd ap2: 27.2 cm2 LAV(MOD-bp) Indexed: 57.8 ml/m2 LVLd ap4: 6.7 cm LVLd ap2: 7.0 cm LAV(MOD-sp2): 103.5 ml EDV(MOD-sp4): 56.9 ml EDV(MOD-sp2): 87.7 ml LAV(MOD-sp4): 107.3 ml EDV(sp4-el): 60.4 ml EDV(sp2-el): 89.3 ml LVAs ap4: 14.0 cm2 LVAs ap2: 14.2 cm2 LVLs ap4: 5.8 cm LVLs ap2: 5.8 cm ESV(MOD-sp4): 27.7 ml ESV(MOD-sp2): 28.3 ml ESV(sp4-el): 28.3 ml ESV(sp2-el): 29.6 ml EF(MOD-sp4): 51.4 % EF(MOD-sp2): 67.8 % EF(sp4-el): 53.1 % SV(MOD-sp4): 29.3 ml SV(MOD-sp2): 59.4 ml SV(sp4-el): 32.1 ml LA dimension(2D): 5.2 cm LA A4 area: 28.7 cm2 RA A4 area: 14.9 cm2 TAPSE: 2.2 cm Time Measurements MV dec time: 0.20 sec Doppler Measurements & Calculations MV E max wade: 95.9 cm/sec Lat Peak E' Wade: 7.6 cm/sec Med Peak E' Wade: 5.9 cm/sec MV A max wade: 75.8 cm/sec E/E' lat: 12.6 E/E' med: 16.2 MV E/A: 1.3 MV dec slope: 479.4 cm/sec2 Ao V2 max: 144.3 cm/sec LV V1 max: 115.0 cm/sec Ao max P.3 mmHg LV V1 max P.3 mmHg Ao V2 mean: 109.0 cm/sec Ao mean P.0 mmHg Ao V2 VTI: 32.8 cm PA V2 max: 83.1 cm/sec TR max wade: 263.3 cm/sec TR max P.7 mmHg ECHO/Echo Complete Interpretation Summary Mild concentric left ventricular hypertrophy. The left ventricular ejection fraction is 60 %. Diastolic function is indeterminate. The left atrium is severely enlarged. The right atrium is mildly enlarged. Moderate (2+) anteriorly directed mitral valve insufficiency. Right ventricular systolic pressure estimated to be 43 mmHg. Ordering Physician: Ophelia Diana Referring Physician: Olivier Olsmtead Chi Performed By: Meghna Saunders, HERNANDEZ, RVT
--- OUTSIDE RECORDS SUMMARY | 2024-01-02 07:04 | XMS RPT_ITS | CCD ---
Author Name Unknown Address [address] [place] [address] Organization [facility] Care Team Providers Care Disability Counselor Name Role Phone Bossman Mcbride Y Unavailable Unavailable Jitendra Mcbrideumi Y Unavailable Unavailable Gabriela RN, Fabiola Reynoso Unavailable Unavailable Medications Completed/Discontinued Medications Medication Drug Class(es) Dates Sig (Normalized) Sig (Original) aspirin 81 mg oral tablet (6 sources) Nonsteroidal Anti-inflammatory Drug Start: 04-28-2011 take 1 tablet by mouth once daily ASPIRIN 81 MG TABS One tablet by mouth daily ASPIRIN [id number] Meli Clark Problems Active Problems Problem Classification [...] 11:03-0400 BMI (Body Mass Index) 34.45 kg/m2 [facility] Work Phone: 05-18-2017 11:03-0400 BP Diastolic 60 mm[Hg] [employer] [facility] Work Phone: 05-18-2017 11:03-0400 BP Systolic 102 mm[Hg] [employer] [facility] Work Phone: 05-18-2017 11:03-0400 Height 160.02 cm [employer] [facility] Work Phone: 05-18-2017 11:03-0400 Pulse (Heart Rate) 68 /min [employer] [facility] Work Phone: 05-18-2017 11:03-0400 Respiratory Rate 20 /min [employer] [facility] Work Phone: 05-18-2017 11:03-0400 Weight 88.23 kg [employer] [facility] Work Phone: 06-01-2016 14:31-0400 BMI (Body Mass Index) 35.03 kg/m2 Fabiola Ochoa RN [facility] Work Phone: 06-01-2016 14:31-0400 BP Diastolic 68 mm[Hg] Fabiola Ochoa RN [facility] Work Phone: 06-01-2016 14:31-0400 BP Systolic 110 mm[Hg] Fabiola Ochoa RN [facility] Work Phone: 06-01-2016 14:31-0400 BSA (Body Surface Area) 1.93 m2 Fabiola Ochoa RN [facility] Work Phone: 06-01-2016 14:31-0400 Pulse (Heart Rate) 72 /min Fabiola Ochoa RN [facility] Work Phone: 06-01-2016 14:31-0400 Respiratory Rate 16 /min Fabiola Ochoa RN [facility] Work Phone: 06-01-2016 14:31-0400 Weight 89.72 kg Fabiola Ochoa RN [facility] Work Phone: 02-22-2012 11:41-0400 Height 160.02 cm Fabiola Ochoa RN [facility] Work Phone: Procedures Date Procedure [...] Author Start: 05-22-2018 End: 05-22-2018 Appointment Appointment [facility] Work Phone: Start: 05-18-2017 End: 05-18-2017 Appointment Appointment [facility] Work Phone: Start: 05-18-2017 End: 05-18-2017 Follow Up Appt 1 year Follow Up Appt 1 year [facility] Work Phone: Start: 05-18-2017 End: 05-18-2017 PFM PFM [facility] Work Phone: Start: 06-01-2016 End: 06-02-2016 *BMP *BMP [facility] Work Phone: Start: 06-01-2016 End: 06-01-2016 Follow Up Appt 6 months Follow Up Appt 6 months [facility] Work Phone: Start: 06-01-2016 End: 06-01-2016 Follow Up Appt Other Follow Up Appt Other [facility] Work Phone: Start: 06-01-2016 End: 06-01-2016 PFM PFM [facility] Work Phone: Start: 06-01-2016 End: 06-02-2016 *BMP *BMP [facility] Work Phone: Start: 06-01-2016 End: 06-01-2016 Follow Up Appt 6 months Follow Up Appt 6 months [facility] Work Phone: Start: 06-01-2016 End: 06-01-2016 Follow Up Appt Other Follow Up Appt Other [facility] Work Phone: Start: 06-01-2016 End: 06-01-2016 PFM PFM [facility] Work Phone: Start: 12-01-2015 End: 06-01-2016 Ecg routine ecg w/least 12 lds w/i&r EKG (In office) [facility] Work Phone: Start: 12-01-2015 End: 06-01-2016 Follow Up Appt 6 months Follow Up Appt 6 months [facility] Work Phone: Start: 12-01-2015 End: 06-01-2016 MMM MMM [facility] Work Phone: Start: 12-01-2015 End: 06-01-2016 Electrocardiogram, complete EKG (In office) [facility] Work Phone: Start: 12-01-2015 End: 06-01-2016 Follow Up Appt 6 months Follow Up Appt 6 months [facility] Work Phone: Start: 12-01-2015 End: 06-01-2016 MMM MMM [facility] Work Phone: Start: 04-21-2015 End: 04-21-2015 Follow Up Appt 6 months Follow Up Appt 6 months [facility] Work Phone: Start: 04-21-2015 End: 04-21-2015 PFM PFM [facility] Work Phone: Start: 04-21-2015 End: 04-21-2015 Follow Up Appt 6 months Follow Up Appt 6 months [facility] Work Phone: Start: 04-21-2015 End: 04-21-2015 PFM PFM [facility] Work Phone: Start: 10-05-2014 End: 10-06-2014 Ecg routine ecg w/least 12 lds w/i&r EKG (In office) [facility] Work Phone: Start: 10-05-2014 End: 10-06-2014 Follow Up Appt 6 months Follow Up Appt 6 months [facility] Work Phone: Start: 10-05-2014 End: 10-06-2014 MMM MMM [facility] Work Phone: Start: 10-05-2014 End: 10-06-2014 Electrocardiogram, complete EKG (In office) [facility] [facility] Work Phone: Start: 10-05-2014 End: 10-06-2014 Follow [...] Up Appt Other Follow Up Appt Other [facility] Work Phone: Start: 04-01-2014 End: 04-14-2015 MMM MMM [facility] Work Phone: Start: 04-01-2014 End: 04-14-2015 Follow Up Appt 6 months Follow Up Appt 6 months [facility] Work Phone: Start: 04-01-2014 End: 04-21-2015 Follow Up Appt Other Follow Up Appt Other [facility] Work Phone: Start: 04-01-2014 End: 04-14-2015 MMM MMM [facility] Work Phone: Start: 06-04-2013 End: 06-04-2013 Ecg routine ecg w/least 12 lds w/i&r EKG (In office) [facility] Work Phone: Start: 06-04-2013 End: 06-04-2013 Follow Up Appt 6 months Follow Up Appt 6 months [facility] Work Phone: Start: 06-04-2013 End: 06-04-2013 PFM PFM [facility] Work Phone: Start: 06-04-2013 End: 06-04-2013 Electrocardiogram, complete EKG (In office) [facility] Work Phone: Start: 06-04-2013 End: 06-04-2013 Follow Up Appt 6 months Follow Up Appt 6 months [facility] Work Phone: Start: 06-04-2013 End: 06-04-2013 PFM PFM [facility] Work Phone: Start: 08-14-2012 End: 08-14-2012 Ecg routine ecg w/least 12 lds w/i&r EKG (In office) [facility] Work Phone: Start: 08-14-2012 End: 08-14-2012 Follow Up Appt 6 months Follow Up Appt 6 months [facility] Work Phone: Start: 08-14-2012 End: 08-14-2012 Electrocardiogram, complete EKG (In office) [facility] Work Phone: Start: 08-14-2012 End: 08-14-2012 Follow Up Appt 6 months Follow Up Appt 6 months [facility] Work Phone: Start: 02-22-2012 End: 02-22-2012 Ecg routine ecg w/least 12 lds w/i&r EKG (In office) [facility] Work Phone: Start: 02-22-2012 End: 03-04-2013 Follow Up Appt 6 months Follow Up Appt 6 months [facility] Work Phone: Start: 02-22-2012 End: 02-22-2012 Electrocardiogram, complete EKG (In office) [facility] Work Phone: Start: 02-22-2012 End: 03-04-2013 Follow Up Appt 6 months Follow Up Appt 6 months [facility] Work Phone: Additional Source [...] BE BASED ON THE PRIMARY CLINICAL RECORDS. Possible [facility]. provides no warranty or guarantee of the accuracy or completeness of information in this document.
--- NOTE | 2024-01-02 11:54 | STRESSREP_ITS ---
Stress Test Report Date: 01/02/2024 Procedure: Pharmacologic stress nuclear imaging study Indications: Arrhythmia Consent: Per the patient Procedure: The patient underwent pharmacologic (Regadenoson 0.4mg ) evaluation with a peak heart rate of 89 beats per minute (61%predicted maximal heart rate) and a peak blood pressure of 158/82 mmHg. The baseline ECG demonstrated sinus rhythm with nonspecific intraventricular conduction delay. The peak pharmacologic ECG demonstrated no diagnostic changes. There were no cardiac dysrhythmias pretest, during pharmacologic infusion, or recovery. There was no complaint of chest discomfort during pharmacologic infusion or recovery. The patient was injected with 13.9 millicuries of technetium 99m Cardiolite and subsequently rest SPECT Cardiolite nuclear imaging was obtained in the horizontal long, vertical long, and short axis views. The patient underwent pharmacologic (Regadenoson) evaluation. The patient was injected with 43.4 millicuries of technetium 99m Cardiolite and subsequently stress SPECT Cardiolite nuclear imaging was obtained in the horizontal long, vertical long, and short axis views. A gated Cardiolite study at peak stress was obtained. The examination was stopped secondary to completion of protocol. Rest and stress SPECT Cardiolite nuclear imaging status post realignment, no rmalization, and attenuation correction demonstrate no fixed or reversible perfusion defects. There is end systolic thickening and brightening. The gated Cardiolite study demonstrates myocardial thickening and inward wall motion. The reported LVEF is 77%. Impression: 1. Pharmacologic (Regadenoson) evaluation 2. Peak pharmacologic ECG with no ischemic changes. 3. There were no cardiac dysrhythmias pretest, during pharmacologic infusion, or recovery. 5. Rest and stress SPECT Cardiolite nuclear imaging demonstrate relative uniform tracer uptake and myocardial perfusion appearing within normal limits. 6. The gated Cardiolite study reports an LVEF of 77%. This note was generated with TimeCast[employer] software. It may contain incorrect words, spelling, and punctuation that were not noted in checking the note before signing.
== END | disposition home or self-care (01) ==
LOC: CVS 06:59
PROVIDERS: PCP Family Medicine Geriatric Medicine; Referring Provider Nurse Practitioner Gerontology; Visit Provider Nurse Practitioner Gerontology
DX: I34.1 Nonrheumatic mitral (valve) prolapse (principal); I48.0 Paroxysmal atrial fibrillation; I34.0 Nonrheumatic mitral (valve) insufficiency; R94.31 Abnormal electrocardiogram [ECG] [EKG]; Z79.899 Other long term (current) drug therapy
CPT/HCPCS: 78452; 93017; 93306; A9500; J2785

== ENCOUNTER → 2024-01-16 | Outpatient (CLI) | payer MEDICARE, SELFPAY ==
--- NOTE | 2024-01-16 16:29 | MRI_ITS ---
HISTORY: Cystic mass-bony pelvis. Follow-up left lower quadrant cystic structure seen on CT. TECHNIQUE: Multiplanar multisequence images of the pelvis were obtained before and after the intravenous administration of 15 cc Clariscan. 273 images. COMPARISON: CT 12/20/2023. FINDINGS: PELVIC ORGANS: 1 x 1.2 x 1.2 cm right and 2.8 x 3.4 x 3.6 cm left unilocular ovarian cysts without enhancing soft tissue mass. Absent uterus. Unremarkable urinary bladder. BOWEL/PERITONEUM: Sigmoid diverticulosis without acute perisigmoid inflammation. No significant free fluid or pathologically enlarged lymph nodes in the pelvis. OSSEOUS STRUCTURES: Mild S-shaped lumbar scoliosis. Mild degenerative changes of the hips. No acute fracture or femoral head avascular necrosis. MRI/Pelvis W/WO Contrast IMPRESSION: Simple ovarian cysts measuring 3.6 cm on the left and 1.2 cm on the right. ACR White Paper guidelines (Bess, et. al. JACR 2020;17(2):248-254) suggest no follow-up is necessary. Electronically Signed: Lori Barksdale MD at 9:45 EDT ,
== END | disposition home or self-care (01) ==
LOC: MRI 16:08
PROVIDERS: PCP Family Medicine Geriatric Medicine; Referring Provider Surgery; Visit Provider Surgery
DX: N83.291 Other ovarian cyst, right side (principal)
CPT/HCPCS: 72197; A9575

== ENCOUNTER → 2024-04-28 | Outpatient (CLI) | payer MEDICARE, SELFPAY ==
[2024-04-28 17:27] LABS: Absolute Lymphocyte Count 1.44 X10^3/uL (0.83-4.51); Absolute Neutrophil Count 2.6 X10^3/uL (2.0-7.7); Basophil# 0.02 X10^3/uL; Basophil% 0.4 % (0-1); Eosinophil# 0.19 X10^3/uL; Eosinophils% 4.1 % (0-5); Hemoglobin 13.7 g/dL (12.0-15.0); Lymphocyte # 1.44 X10^3/ul (0.83-4.51); Lymphocyte % 31.2 % (19-41); Mean Corp Hgb Conc 32.6 g/dL (32-36); Mean Corpuscular Hgb 31.9 pg (27.0-32.0); Mean Corpuscular Volume 97.7 fL (81-99); Mean Platelet Vol. 11.1 fl (6.2-12.0); Monocyte# 0.33 X10^3/uL; Monocyte% 7.1 % (0-10); NRBC Flagged by Analyzer 0 % (0-5); Neutrophil # 2.62 X10^3/uL (2.7-7.7); Neutrophil % 56.8 % (47-70); Platelet Count 223 K/mm3 (150-450); RBC Distribution Width SD 46.4 fl (35.1-43.9); White Blood Count 4.6 K/mm3 (4.4-11.0)
[2024-04-28 18:28] LABS: ALB/GLOB Ratio 1.2 RATIO (0.9-2.4); AST(SGOT) 44 U/L (15-37); Alanine Aminotransfer ALT/SGPT 43 U/L (13-56); Albumin, Serum 3.7 g/dL (3.2-5.0); Alkaline Phosphatase 155 U/L (45-117); Anion Gap 8 (5-15); BUN 21 mg/dL (7-18); BUN/Creat Ratio 25.3 RATIO (10-20); Calcium,Total 9.7 mg/dL (8.5-10.1); Chloride 109 mmol/L (98-107); Creatinine, Serum 0.83 mg/dL (0.55-1.02); EST Glomerular Filtration Rate 71 mL/min (>60); Est Glom Filt Rate - Afr Amer 86 mL/min (>60); Globulin 3.2 g/dL (2.2-4.2); Glucose 93 mg/dL (74-106); Potassium 4.4 mmol/L (3.5-5.1); Protein, Total 6.9 g/dL (6.4-8.2); Sodium Level 140 mmol/L (136-145); Thyroid Stim Hormone (TSH) 0.75 uIU/mL (0.358-3.74)
[2024-04-28 21:51] LABS: Vitamin B12 344 pg/mL (211-911)
== END | disposition home or self-care (01) ==
LOC: POLAB3 16:23
PROVIDERS: PCP Family Medicine Geriatric Medicine; Visit Provider Family Medicine Geriatric Medicine
DX: E78.5 Hyperlipidemia, unspecified (principal); R53.83 Other fatigue
CPT/HCPCS: 36415; 80053; 82607; 84443; 85025

== ENCOUNTER → 2024-05-06 | Outpatient (CLI) | payer MEDICARE, SELFPAY ==
[2024-05-06 14:20] LABS: Absolute Lymphocyte Count 1.49 X10^3/uL (0.83-4.51); Absolute Neutrophil Count 2.8 X10^3/uL (2.0-7.7); Basophil# 0.02 X10^3/uL; Basophil% 0.4 % (0-1); Eosinophil# 0.21 X10^3/uL; Eosinophils% 4.4 % (0-5); Hemoglobin 13.8 g/dL (12.0-15.0); Lymphocyte # 1.49 X10^3/ul (0.83-4.51); Mean Corp Hgb Conc 32.9 g/dL (32-36); Mean Corpuscular Hgb 32.5 pg (27.0-32.0); Mean Corpuscular Volume 98.8 fL (81-99); Mean Platelet Vol. 11.3 fl (6.2-12.0); Monocyte# 0.33 X10^3/uL; Monocyte% 6.9 % (0-10); NRBC Flagged by Analyzer 0 % (0-5); Neutrophil # 2.75 X10^3/uL (2.7-7.7); Neutrophil % 57.1 % (47-70); Platelet Count 236 K/mm3 (150-450); RBC Distribution Width CV 12.9 % (11.6-14.6); RBC Distribution Width SD 46.6 fl (35.1-43.9); Red Blood Count 4.25 M/mm3 (4.2-5.4); White Blood Count 4.8 K/mm3 (4.4-11.0)
[2024-05-06 14:36] LABS: Vitamin D,25 Hydroxy 36.4 ng/mL
[2024-05-06 14:45] LABS: ALB/GLOB Ratio 1.1 RATIO (0.9-2.4); AST(SGOT) 38 U/L (15-37); Alanine Aminotransfer ALT/SGPT 46 U/L (13-56); Albumin, Serum 3.6 g/dL (3.2-5.0); Alkaline Phosphatase 141 U/L (45-117); Anion Gap 6 (5-15); BUN 26 mg/dL (7-18); BUN/Creat Ratio 35.4 RATIO (10-20); Calcium,Total 9.5 mg/dL (8.5-10.1); Chloride 107 mmol/L (98-107); Cholesterol 183 mg/dL (200); Creatinine, Serum 0.73 mg/dL (0.55-1.02); EST Glomerular Filtration Rate 82 mL/min (>60); Est Glom Filt Rate - Afr Amer 99 mL/min (>60); Globulin 3.4 g/dL (2.2-4.2); Glucose 97 mg/dL (74-106); High Density Lipoprotein 60 mg/dL; Sodium Level 139 mmol/L (136-145); Thyroid Stim Hormone (TSH) 0.38 uIU/mL (0.358-3.74); Triglycerides 72 mg/dL; Very Low Density Lipoprotein 14 mg/dL (5-40)
== END | disposition home or self-care (01) ==
LOC: POLAB3 13:07
PROVIDERS: PCP Family Medicine Geriatric Medicine; Visit Provider Family Medicine Geriatric Medicine
DX: E78.5 Hyperlipidemia, unspecified (principal); I10 Essential (primary) hypertension; E55.9 Vitamin D deficiency, unspecified
CPT/HCPCS: 36415; 80053; 80061; 82306; 84443; 85025

== ENCOUNTER → 2024-06-02 | Outpatient (CLI) | payer MEDICARE, SELFPAY ==
--- NOTE | 2024-06-02 16:35 | RAD_ITS ---
INDICATION: LOW BACK PAIN EXAMINATION/TECHNIQUE: X-RAY - XR Spine Lumbar Min 4 Views COMPARISON: 03/01/2022. FINDINGS: VERTEBRAE: Preserved vertebral body height. No fracture. No spondylolisthesis. Preservation of the normal lumbar lordosis. Severe multilevel facet arthropathy. DISCS: Severe multilevel degenerative disc disease and spondylosis. INCLUDED ABDOMEN: Included bowel gas pattern is non-obstructive. RAD/L/S Spine Min 4 Views IMPRESSION: No evidence of lumbar spinal fracture or spondylolisthesis. Severe multilevel degenerative disc disease and spondylosis. Electronically Signed: Lucho Corbin MD at 20:08 EDT ,
--- NOTE | 2024-06-02 16:35 | RAD_ITS ---
EXAM: XR RIGHT HIP WITH PELVIS WHEN PERFORMED, 2 OR 3 VIEWS CLINICAL INDICATION: RIGHT HIP PAIN TECHNIQUE: Two or three views of the right hip with pelvis when performed. COMPARISON: MRI pelvis, 01/16/2024 FINDINGS: BONES/JOINTS: Degenerative changes in the lower lumbar spine and SI joints. Subtle intertrochanteric cortical thickening along the medial aspect of the femur and peripheral cortical lucency bilaterally. No displaced fracture. No widening of the pubic symphysis. SOFT TISSUES: No significant abnormality. No soft tissue swelling or gas. RAD/HIP, UNI W/ Pelvis 2-3 Views IMPRESSION: Likely atypical stress reactive changes of the infra trochanteric femora bilaterally. Risk for complete fracture. Correlate clinically for bisphosphonate therapy. Electronically Signed: Jose Dowd DO at 20:35 EDT ,
== END | disposition home or self-care (01) ==
LOC: RAD 16:31
PROVIDERS: PCP Family Medicine Geriatric Medicine; Referring Provider Family Medicine Geriatric Medicine; Visit Provider Family Medicine Geriatric Medicine
DX: M54.50 Low back pain, unspecified (principal); M25.551 Pain in right hip
CPT/HCPCS: 72110; 73502

== ENCOUNTER → 2024-06-12 | Outpatient (CLI) | payer MEDICARE, SELFPAY ==
--- NOTE | 2024-06-12 12:29 | BD_ITS ---
STUDY: DUAL ENERGY X-RAY ABSORPTIOMETRY / DXA REASON FOR EXAM: Female, 73 years old. [id number] TECHNIQUE: Bone Mineral Density (BMD) measurements of lumbar spine and bilateral hips were obtained. COMPARISON: Comparison is made with prior study dated March 14, 2018. FINDINGS: Lumbar Spine (L1-L4): g/cm2 (0.734) / T-score (-3.3) / Z-score (-0.7) Findings are suggestive of osteoporosis with a high fracture risk. Left Femur Total: g/cm2 (0.640) / T-score (-2.5) / Z-score (-0.6) Left Femoral Neck: g/cm2 (0.528) / T-score (-2.9) / Z-score (-0.8) Right Femur Total: g/cm2 (0.645) / T-score (-2.4) / Z-score (-0.6) Right Femoral Neck: g/cm2 (0.534) / T-score (-2.8) / Z-score (-0.7) The T-Scores on the most recent prior examination were: Lumbar Spine (L1-L4): There has been worsening of bone density since the previous examination. Left Femur Total: which represents a worsening of 5.2%. Right Femur Total: which represents a worsening of 3.1%. BD/Dexa Bone Density Study IMPRESSION: The patient is considered osteoporotic as outlined below according to World Tavon Organization (WHO) criteria with a high fracture risk. There has been worsening of bone density since the previous examination. Reference Information: The T-score is the number of standard deviations above or below the standard which is normal for young adults at their peak bone mineral density. The World Health Organization (WHO) interprets the T-scores as follows: Above -1 Normal bone density Between -1 and -2.5 Osteopenia Equal to / or below -2.5 Osteoporosis As a practical clinical guideline, osteopenia may be graded as follows: Mild -1 through -1.5 Moderate -1.6 through -2.0 Severe -2.1 through -2.4 The Z-score is the number of standard deviations above or below age-matched controls. A Z-score of less than -1.5 would be considered abnormal. References: 1. NIH Osteoporosis and Related Bone Diseases www osteo.org 2. International Society for Clinical Densitometry www iscd.org 3. National Osteoporosis Foundation www nof.org Electronically Signed: Kale Peralta MD at 13:23 EDT ,
== END | disposition home or self-care (01) ==
LOC: OPBD 12:24
PROVIDERS: PCP Family Medicine Geriatric Medicine; Referring Provider Family Medicine Geriatric Medicine; Visit Provider Family Medicine Geriatric Medicine
DX: Z78.0 Asymptomatic menopausal state (principal)
CPT/HCPCS: 77080

== ENCOUNTER → 2024-06-19 | Outpatient (CLI) | payer MEDICARE, SELFPAY ==
--- NOTE | 2024-06-19 15:44 | MRI_ITS ---
STUDY: MRI RIGHT HIP REASON FOR EXAM: Female, 73 years old. RIGHT HIP PAIN X 2 WEEKS TECHNIQUE: Standardized fat and water weighted pulse sequences were obtained in all 3 orthogonal planes. COMPARISON: X-ray June 02, 2024 FINDINGS: Normal hip joint without articular joint space narrowing. Normal acetabulum. Normal labrum. Normal femoral head. Normal femoral neck and intratrochanteric region. There is no demonstrated fracture. There is lumbar levoscoliosis with degenerative changes visualized spine. There is tendinosis of the gluteus minimus and medius. Normal iliopsoas tendon and distal insertion. There is atrophy and fatty infiltration of the tensor fascia latae. There is mild edema at the trochanteric bursa. No iliopsoas or iliopectineal bursitis. Normal superior and inferior pubic rami. Normal pubic symphysis. Normal ischial tuberosity. Normal origin of the hamstring tendons. Normal visualized iliac wing, sacroiliac joint, and sacral ala. Normal visualized soft tissue structures of the pelvis. There is prior hysterectomy. There is 3.9 cm left pelvic cyst. There is cystocele of the urinary bladder. 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 Atrophy of the tensor fascia latae. No fracture or avascular necrosis. Prior hysterectomy. Left pelvic cyst. Cystocele of the urinary bladder. Electronically Signed: Jayson Aguila MD at 18:18 EDT ,
== END | disposition home or self-care (01) ==
LOC: MRI 15:38
PROVIDERS: PCP Family Medicine Geriatric Medicine; Referring Provider Family Medicine Geriatric Medicine; Visit Provider Family Medicine Geriatric Medicine
DX: M25.551 Pain in right hip (principal)
CPT/HCPCS: 73721

== ENCOUNTER 2024-07-23 08:00 | Outpatient (RCR) | payer MEDICARE, SELFPAY ==
--- NOTE | 2024-07-16 16:57 | HP.PTEVAL_ITS ---
Patient's Visit Information Visit Information Visit Information: AYDE YATES is a 73 year old F referred to Physical Therapy by Dr. Mark Wolff DO with a diagnosis of DDD, L spondylosis, R hip tendonitis. Date of Evaluation: 07/16/24 Physical Therapist: PRACHI Salazar Visit Plan Frequency: 1x/Week Duration: 2 Months Plan: 1X/ week for 8 weeks for neutral spine core stability, hip and LE strength, postural exercises, gait training geared to HEP HEP: LTR, SKC, supine piriformis stretch (knee to opp shoulder), pelvic tilt Subjective Subjective: Pt has had back pain for a couple of years. She had COVID in April and about 10 days after she could not get up and had to use her walker and was afraid of falling. 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 Her Bone Density shows she is at a risk for serious hip fx and LB. She uses a rollator and uses it at nightly. If she is having a bad day she uses it and it is in her bedroom. She has had no falls in the last year. 1-2 steps in the house and has a ecosystem ecology professor post to help pull herself up and some safety in the shower and stool. She has a walk in shower. She drives. She works from home and works 36-40 hours per week. She has no trouble rolling over in bed or getting out of bed. She can carry light groceries. She can not bend over at her knees due to past dislocated knees. Pain back pain: Pain Intensity (Out of 10): 8 Objective Objective: Gait: walks with a standard cane with shorter strides and flexed posture with hip hike. LE MMT: R hip flex 4/5 and L 4-/5 R knee ext B 4-/5 R knee flex B 4/5 supine hip abd 4-/5 B Pt had some increase discomfort with Bridge and did 1/2 normal ROM Pt had increase pain (antonio on the R) with Supine knee to opp shoulder Piriformis stretch and a little discomfort on the L Pt is able to do pelvic tilt without pain SLR.. increases pain and very weak Sit to stand: needs B hands to get up and out of a chair. Balance/Special Test Scores Oswestry Low Back Score: 19 Goals Goal 1:: I HEP Goal Time Frame: 6-8 Weeks Goal 2:: Be able to walk back to the treatment room with a straight cane with smoother gait pattern Goal Time Frame: 6-8 Weeks Goal 3:: Increase B hip abd strength to 4/5 Goal Time Frame: 6-8 Weeks Rehabilitation Potential Rehabilitation Potential: Good Anticipated Interventions Patient/Client Instruction: Educate patient on: Condition and Plan of Care For the Purpose of:: To decrease pain, To increase ROM, To improve nutrient delivery to tissue, To improve muscle performance and motor function, To improve ability to perform ADL's, To increase tolerance to activity/condition/position, To improve performance and independence with ADL's, To decrease level of supervision to perform tasks, To improve ability of physical actions for home/community/work/leisure, To improve gait and locomotor functions, To improve health of tissue, To increase flexibility/ROM, To improve balance and To improve safety with gait Therapeutic Exercise to Include: Strength training, Endurance training, Balance training, Postural training, Flexibilty training, Gait and locomotor training, Active ROM, Dynamic Lumbar Stabilization and Scapular Strength/Stabilization For the Purpose of:: To decrease pain, To increase ROM, To improve nutrient delivery to tissue, To improve muscle performance and motor function, To improve ability to perform ADL's, To increase tolerance to activity/condition/position, To improve performance and independence with ADL's, To decrease level of supervision to perform tasks, To improve ability of physical actions for home/community/work/leisure, To improve gait and locomotor functions, To improve health of tissue, To decrease soft tissue restriction, To increase flexibility/ROM, To improve balance and To improve safety with gait Functional Training to Include: Gait training For the Purpose of:: To improve gait and locomotor functions and To improve safety with gait Text: Thank you for the opportunity to evaluate your patient. For Medicare and Medicare HMO plans, please review the plan of care and approve it. It will need to be FAXED BACK to us at [phone] for Medicare purposes. For Medicare only, by signing this I certify the plan of care. Please let me know if there are questions or concerns regarding this plan of care. Physician Signature: Date:
--- NOTE | 2024-09-02 07:28 | HP.PT.NRP ---
Patient Information Patient Information: AYDE YATES was seen in my office for initial evaluation on 07/16/24. The following Plan of Care was established for this patient: POC Established Initial Frequency: 1x/Week Initial Duration: 2 Months Anticipated Interventions Patient/Client Instruction: Educate patient on: Condition and Plan of Care For the Purpose of:: To decrease pain, To increase ROM, To improve nutrient delivery to tissue, To improve muscle performance and motor function, To improve ability to perform ADL's, To increase tolerance to activity/condition/position, To improve performance and independence with ADL's, To decrease level of supervision to perform tasks, To improve ability of physical actions for home/community/work/leisure, To improve gait and locomotor functions, To improve health of tissue, To increase flexibility/ROM, To improve balance and To improve safety with gait Therapeutic Exercise to Include: Strength training, Endurance training, Balance training, Postural training, Flexibilty training, Gait and locomotor training, Active ROM, Dynamic Lumbar Stabilization and Scapular Strength/Stabilization For the Purpose of:: To decrease pain, To increase ROM, To improve nutrient delivery to tissue, To improve muscle performance and motor function, To improve ability to perform ADL's, To increase tolerance to activity/condition/position, To improve performance and independence with ADL's, To decrease level of supervision to perform tasks, To improve ability of physical actions for home/community/work/leisure, To improve gait and locomotor functions, To improve health of tissue, To decrease soft tissue restriction, To increase flexibility/ROM, To improve balance and To improve safety with gait Functional Training to Include: Gait training For the Purpose of:: To improve gait and locomotor functions and To improve safety with gait Last Seen Last Seen: This patient was last seen in our office 07/23/24. Pertinent comments regarding their Physical therapy will appear below: DC PT At this point I will be discontinuing this patient from physical therapy. I would be happy to see this patient again in the future if found appropriate by the physician. Thank you! Delores Henriquez, PRACHI Balance/Gait/Functional tests Balance/Special Test Scores Oswestry Low Back Score: 19
== END 2024-07-23 19:00 | disposition home or self-care (01) ==
LOC: PT 08:00
PROVIDERS: PCP Family Medicine Geriatric Medicine; Referring Provider Orthopaedic Surgery; Visit Provider Orthopaedic Surgery
DX: M51.36 Other intervertebral disc degeneration, lumbar region (principal); M43.06 Spondylolysis, lumbar region; M76.891 Other specified enthesopathies of right lower limb, excluding foot
CPT/HCPCS: 97110; 97162

== ENCOUNTER → 2024-11-20 | Outpatient (CLI) | payer MEDICARE, SELFPAY ==
--- NOTE | 2024-11-20 12:03 | CT_ITS ---
STUDY: CT ABDOMEN AND PELVIS WITH CONTRAST REASON FOR EXAM: Female, 74 years old. ABD PAIN, DIVERTICULITIS OF SIGMOID COLON. Left lower quadrant pain. Kidney stones. RADIATION DOSAGE (If Supplied By Facility): CTDIvol = ( 22.51 ) mGy, DLP = ( 1152.65 ) mGycm TECHNIQUE: Transaxial images were obtained from the dome of the diaphragm to the symphysis pubis with oral contrast. Oral and amp;amp; IV Gastrografin and amp;amp; 100mL Isovue-300 was administered. Sagittal and coronal images were reconstructed. Individualized dose optimization techniques were used for this CT. COMPARISON: Comparison is made with prior study dated December 20, 2023. FINDINGS: Minimal increase in markings at the lung bases suggestive of scarring. Coronary artery calcification. Normal liver. The patient is status post cholecystectomy. Normal spleen. Normal pancreas. Normal bilateral adrenal glands. Normal right kidney. Nonobstructive 3 mm calculus in the mid lateral aspect of the left kidney. There is a small hiatal hernia. Stable small duodenal diverticulum. Normal small intestine. There is diverticulosis, with thickening of the colon wall, and pericolonic inflammation changes consistent with acute diverticulitis. There is non-visualization of the appendix. There is scattered atherosclerotic calcification of the abdominal aorta, without a demonstrated aneurysm. Normal inferior vena cava. Normal retroperitoneum. Normal urinary bladder. There is absence of the uterus consistent with a prior hysterectomy. There is a 4 cm x 4 cm cystic structure in the left lower abdomen adjacent to the left psoas muscle. Small bilateral fat containing bilateral inguinal hernias. There are mild degenerative changes of the visualized lumbar spine. CT/Abdomen/Pelvis WITH Contrast IMPRESSION: Findings intraoperative noncomplicated acute sigmoid diverticulitis. Persistent cystic structure in the left hemipelvis adjacent to the left psoas muscle. Electronically Signed: Kale Peralta MD at 14:42 EST ,
[2024-11-20 12:38] LABS: Absolute Lymphocyte Count 1.04 X10^3/uL (0.83-4.51); Absolute Neutrophil Count 4.1 X10^3/uL (2.0-7.7); Basophil# 0.03 X10^3/uL; Basophil% 0.5 % (0-1); Eosinophil# 0.18 X10^3/uL; Eosinophils% 3.1 % (0-5); Hematocrit 40.1 % (37-47); Hemoglobin 13.5 g/dL (12.0-15.0); Lymphocyte # 1.04 X10^3/ul (0.83-4.51); Lymphocyte % 17.7 % (19-41); Mean Corp Hgb Conc 33.7 g/dL (32-36); Mean Platelet Vol. 10.9 fl (6.2-12.0); Monocyte% 8.5 % (0-10); NRBC Flagged by Analyzer 0 % (0-5); Neutrophil % 69.7 % (47-70); Platelet Count 195 K/mm3 (150-450); RBC Distribution Width CV 12.3 % (11.6-14.6); RBC Distribution Width SD 42.8 fl (35.1-43.9); Red Blood Count 4.22 M/mm3 (4.2-5.4); White Blood Count 5.9 K/mm3 (4.4-11.0)
[2024-11-20 12:47] LABS: ALB/GLOB Ratio 0.8 RATIO (0.9-2.4); AST(SGOT) 24 U/L (15-37); Alanine Aminotransfer ALT/SGPT 28 U/L (13-56); Albumin, Serum 3.1 g/dL (3.2-5.0); Alkaline Phosphatase 142 U/L (45-117); Anion Gap 9 (5-15); BUN 14 mg/dL (7-18); Calcium,Total 9.3 mg/dL (8.5-10.1); Chloride 104 mmol/L (98-107); Creatinine, Serum 0.56 mg/dL (0.55-1.02); EST Glomerular Filtration Rate 112 mL/min (>60); Est Glom Filt Rate - Afr Amer 135 mL/min (>60); Globulin 3.7 g/dL (2.2-4.2); Glucose 97 mg/dL (74-106); Potassium 3.8 mmol/L (3.5-5.1); Protein, Total 6.8 g/dL (6.4-8.2); Sodium Level 135 mmol/L (136-145)
== END | disposition home or self-care (01) ==
LOC: CT 12:02
PROVIDERS: PCP Family Medicine Geriatric Medicine; Visit Provider Family Medicine Geriatric Medicine
DX: K57.32 Diverticulitis of large intestine without perforation or abscess without bleeding (principal); R10.9 Unspecified abdominal pain; R19.7 Diarrhea, unspecified
CPT/HCPCS: 36415; 74177; 80053; 85025; 87077; 87086; 87088; 87186; 87631; Q9967; A4216

== ENCOUNTER 2024-11-21 10:42 | Outpatient (CLI) | payer MEDICARE, SELFPAY ==
[2024-11-21 11:30] VITALS: BP 140/67; PULSE 76; RESP 16; TEMP 36.4; O2SAT 96; BMI 29.7
[2024-11-21] MEDS: 0.9% Normal Saline (1000mL) 1,000 ML 999 ML IV ×2 (11:34→12:37)
[2024-11-21] MEDS: 0.9% NaCl Peripheral Flush Adult/Peds IV (11:37)
[2024-11-21 13:53] VITALS: BP 137/56; PULSE 66; RESP 16; TEMP 36.6; O2SAT 96
== END 2024-11-21 23:59 | disposition home or self-care (01) ==
LOC: MEDOUTP 10:44
PROVIDERS: PCP Family Medicine Geriatric Medicine; Referring Provider Family Medicine Geriatric Medicine; Visit Provider Family Medicine Geriatric Medicine
DX: E86.0 Dehydration (principal); R19.7 Diarrhea, unspecified
CPT/HCPCS: 96360; 96361; 87070; 87205; 87506; A4216

== ENCOUNTER → 2024-12-31 | Outpatient (CLI) | payer MEDICARE, SELFPAY ==
[2024-12-31 12:44] LABS: Absolute Lymphocyte Count 1.13 X10^3/uL (0.83-4.51); Absolute Neutrophil Count 2.9 X10^3/uL (2.0-7.7); Basophil# 0.02 X10^3/uL; Basophil% 0.4 % (0-1); Eosinophil# 0.13 X10^3/uL; Eosinophils% 2.9 % (0-5); Hematocrit 45.1 % (37-47); Hemoglobin 14.9 g/dL (12.0-15.0); Lymphocyte # 1.13 X10^3/ul (0.83-4.51); Lymphocyte % 24.8 % (19-41); Mean Corpuscular Hgb 32.4 pg (27.0-32.0); Mean Platelet Vol. 10.7 fl (6.2-12.0); Monocyte# 0.37 X10^3/uL; Monocyte% 8.1 % (0-10); NRBC Flagged by Analyzer 0 % (0-5); Neutrophil # 2.89 X10^3/uL (2.7-7.7); Neutrophil % 63.6 % (47-70); Platelet Count 191 K/mm3 (150-450); RBC Distribution Width CV 13.4 % (11.6-14.6); RBC Distribution Width SD 48.5 fl (35.1-43.9); White Blood Count 4.6 K/mm3 (4.4-11.0)
[2024-12-31 14:11] LABS: ALB/GLOB Ratio 1.4 RATIO (0.9-2.4); AST(SGOT) 36 U/L (<=31); Alanine Aminotransfer ALT/SGPT 35 U/L (<=34); Albumin, Serum 4.1 g/dL (3.4-4.8); Alkaline Phosphatase 122 U/L (35-104); Anion Gap 15 (5-15); BUN 19 mg/dL (4-19); BUN/Creat Ratio 27.7 RATIO (10-20); Calcium,Total 9.7 mg/dL (7.6-11.0); Carbon Dioxide 20.8 mmol/L (21.0-32.0); Chloride 105 mmol/L (98-108); Cholesterol 203 mg/dL (<=200); Creatinine, Serum 0.67 mg/dL (0.70-1.20); EST Glomerular Filtration Rate 91 (>60); Globulin 2.9 g/dL (2.2-4.2); Glucose 92 mg/dL (70-99); High Density Lipoprotein 67 mg/dL; Low Density Lipoprotein Calc. 114 mg/dL; Potassium 3.9 mmol/L (3.3-5.1); Sodium Level 141 mmol/L (133-145); Total Bilirubin 0.53 mg/dL (0.00-1.30); Triglycerides 112 mg/dL; Very Low Density Lipoprotein 22 mg/dL (5-40); Vitamin D,25 Hydroxy 37.5 ng/mL (30-100); cholesterol:hdl ratio screen 3.04
== END | disposition home or self-care (01) ==
LOC: POLAB3 12:35
PROVIDERS: PCP Family Medicine Geriatric Medicine; Visit Provider Family Medicine Geriatric Medicine
DX: I10 Essential (primary) hypertension (principal); E78.5 Hyperlipidemia, unspecified; E55.9 Vitamin D deficiency, unspecified
CPT/HCPCS: 36415; 80053; 80061; 82306; 84443; 85025

== ENCOUNTER → 2025-04-06 | Outpatient (CLI) | payer MEDICARE, SELFPAY ==
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
== END | disposition home or self-care (01) ==
PROVIDERS: PCP Family Medicine Geriatric Medicine; Referring Provider Family Medicine Geriatric Medicine; Visit Provider Family Medicine Geriatric Medicine
DX: S30.1XXA Contusion of abdominal wall, initial encounter (principal); V99.XXXA Unspecified transport accident, initial encounter
CPT/HCPCS: 71260; 74177; Q9967

== ENCOUNTER 2025-04-20 09:39 | Emergency (ER) | payer MEDICARE, SELFPAY ==
[2025-04-20] VITALS (7 sets, daily range): BP systolic 131–165; BP diastolic 71–96; PULSE 24–88; RESP 14–146; TEMP 36.4; O2SAT 94–99
--- NOTE | 2025-04-20 09:46 | EKG12_ITS ---
Test Reason : AFIB Blood Pressure : */* mmHG Vent. Rate : 97 BPM Atrial Rate : 97 BPM P-R Int : 240 ms QRS Dur : 130 ms QT Int : 414 ms P-R-T Axes : * -59 32 degrees QTcB Int : 525 ms Atrial fibrillation ivcd Confirmed by JIM RHODES, MAGI ([id number]), associate editor GRISELDA HUERTA ([id number]) on 04/21/2025 11:11:19 AM Referred By: Confirmed By: MAGI FERNANDEZ MD
[2025-04-20 10:32] LABS: Absolute Lymphocyte Count 1.23 X10^3/uL (0.83-4.51); Absolute Neutrophil Count 4.3 X10^3/uL (2.0-7.7); Basophil# 0.02 X10^3/uL; Basophil% 0.3 % (0-1); Eosinophil# 0.14 X10^3/uL; Eosinophils% 2.3 % (0-5); Hematocrit 43.2 % (37-47); Hemoglobin 14.4 g/dL (12.0-15.0); Lymphocyte # 1.23 X10^3/ul (0.83-4.51); Lymphocyte % 20.5 % (19-41); Mean Corp Hgb Conc 33.3 g/dL (32-36); Mean Corpuscular Hgb 32.7 pg (27.0-32.0); Mean Platelet Vol. 10.3 fl (6.2-12.0); Monocyte# 0.34 X10^3/uL; Monocyte% 5.7 % (0-10); NRBC Flagged by Analyzer 0 % (0-5); Neutrophil # 4.27 X10^3/uL (2.7-7.7); Platelet Count 233 K/mm3 (150-450); RBC Distribution Width CV 13.6 % (11.6-14.6); RBC Distribution Width SD 49.3 fl (35.1-43.9); Red Blood Count 4.41 M/mm3 (4.2-5.4)
[2025-04-20 10:54] LABS: Anion Gap 10 (5-15); BUN 18 mg/dL (4-19); BUN/Creat Ratio 27.6 RATIO (10-20); Calcium,Total 8.9 mg/dL (7.6-11.0); Carbon Dioxide 23.5 mmol/L (21.0-32.0); Chloride 105 mmol/L (98-108); Creatinine, Serum 0.65 mg/dL (0.70-1.20); EST Glomerular Filtration Rate 91 (>60); Glucose 96 mg/dL (70-99); Potassium 4.2 mmol/L (3.3-5.1); Sodium Level 139 mmol/L (133-145)
[2025-04-20 10:56] LABS: Troponin T High Sensitivity 13 ng/L (<=14)
--- NOTE | 2025-04-20 11:15 | RAD_ITS ---
PROCEDURE: CHEST PA AND LATERAL 04/20/2025 REASON FOR EXAM: CHEST PAIN TECHNIQUE: CHEST PA AND LATERAL COMPARISON: August 02, 2020 FINDINGS: Hardware is noted in the cervical spine. There is mild cardiomegaly without overt CHF. There is atelectasis or scar at the right and left base, similar to the prior. There is no pneumothorax. There is blunting of the costophrenic angle on the left and may represent a trace effusion. Aortic calcifications are noted. There is no acute bony abnormality. RAD/Chest PA and Lateral IMPRESSION: There is mild cardiomegaly without overt CHF. There is atelectasis or scar at the right and left base, similar to the prior. There is blunting of the costophrenic angle on the left which may represent a t race effusion. Reading Location: [facility]
--- NOTE | 2025-04-20 13:07 | EX.ED.DYSGE1 ---
HPI History of Present Illness Chief Complaint: Hypertension Narrative Narrative: Patient is a 74-year-old female past medical history of paroxysmal atrial fibrillation, Charcot Stefania tooth disease hypertension, depression who presents to the emergency department chief complaint of elevated blood pressure. 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 States that when her blood pressure is elevated she knows that she has a headache associated with this. Patient states that she has been taking her medications as prescribed not missing doses [facility] Medical History (Updated 04/20/25 @ 14:[address] Dewayne Vázquez DO) Muscular dystrophy Paroxysmal atrial tachycardia Non-rheumatic mitral regurgitation Nonrheumatic mitral (valve) prolapse Paroxysmal atrial fibrillation History of kidney stones Left bundle branch block Vqwcztj-Svkup-Ongjm disease Hypotension Depression Home Medications ?Medication ?Instructions ?Recorded ?Last Taken ?Type levothyroxine 125 mcg tablet 125 mcg PO QODAY 11/28/23 04/19/25 History diltiazem HCl 120 mg 120 mg PO QDAY HEART #90 caps 07/24/24 04/19/25 Rx capsule,extended release 24 hr flecainide 100 mg tablet 100 mg PO BID HEART #180 tabs 07/24/24 04/20/25 Rx Bifidobacterium longum 10 million 10,000,000 cell PO DAILY 04/20/25 04/19/25 History cell capsule (Align (B.longum)) citalopram 10 mg tablet 10 mg PO DAILY 04/20/25 04/19/25 History levothyroxine 112 mcg tablet 112 mcg PO QODAY 04/20/25 04/20/25 History loratadine 10 mg capsule (Allergy 10 mg PO DAILY 04/20/25 04/19/25 History Relief (loratadine)) Allergy/AdvReac Type Severity Reaction Status Date / Time prednisone Allergy Intermediate Rash Verified 04/20/25 09:43 adhesive AdvReac Rash Verified 04/20/25 09:43 Family History Mother Hypertension Breast cancer Brother Colon cancer Sister Hypertension Daughter CAD (coronary artery disease) Father Colon cancer Surgical History History of lithotripsy (~10/2017) Hx of cholecystectomy H/O: section H/O: hysterectomy Hx of knee surgery Hx of foot surgery History of tonsillectomy Social History Smoking Status: Former smoker how long ago did patient quit smokin years ago alcohol intake: current alcohol intake frequency: a few times a month caffeine: Yes Type: coffee Number of servings: 2 ROS ROS ED ROS Narrative Constitutional: Denies fevers, chills, lightness, dizziness Eyes: Denies change in vision double vision blurry vision Cardiovascular: Denies chest pain or palpitations Respiratory: Denies coughing wheezing shortness of breath Abdomen: Denies nausea vomit diarrhea : Denies urinary symptoms Neurological: Denies numbness, weakness, tingling Musculoskeletal: Denies back pain Skin: Denies rashes or lesions EXAM Physical Exam Narrative Exam Narrative: General: Patient was lying in bed rest comfortably did not appear to be in acute distress Head: Atraumatic, normocephalic Eyes: PERRL bilaterally, EOMI bilateral, no conjunctival injection noted Neck: Soft, supple, trachea midline Cardiovascular: Regular rate and rhythm no murmurs gallops rubs noted Respiratory: Clear to auscultation bilaterally Abdomen: Soft, nondistended, nontender to palpation Extremities: Radial pulses +2/4 in the bilateral extremities, no pedal edema on exam, +5/5 strength noted in the bilateral upper and lower extremities Neurological: Patient follow commands knew that she was at [facility] the year is 2024 Skin: Warm, dry, tact no rashes or lesions noted Const Vital Signs: 04/20/25 09:40 04/20/25 11:31 04/20/25 11:31 Temperature 97.6 F L Temperature Source Oral Pulse Rate 24 L 85 Respiratory Rate 146 H 14 Respiratory Effort Respiratory Pattern Blood Pressure 165/95 H 152/96 H Blood Pressure Mean 118 114 Pulse Ox 94 96 Oxygen Delivery Method Room Air Room Air Room Air 04/20/25 11:31 04/20/25 12:00 04/20/25 13:55 Temperature Temperature Source Pulse Rate 84 86 Respiratory Rate 14 21 H Respiratory Effort Normal Non-Labored Respiratory Pattern Normal Blood Pressure 131/71 H 141/83 H Blood Pressure Mean 91 102 Pulse Ox 99 95 Oxygen Delivery Method Room Air Room Air MDM MDM MDM Narrative Medical decision making narrative: Patient is a 74-year-old female who presented to the emergency department the chief complaint of hypertension. On the differential diagnosis includes but not limited to essential hypertension, hypertensive emergency, ACS. Once workup is obtained and reviewed she will be reevaluated. Patient's CBC reviewed showed no evidence leukocytosis white blood count normal at 6, hemoglobin 14.4, platelet count was 233. Patient sodium is 139, potassium of 4.2, creatinine was 0.65. Patient's troponin was 13 with a delta troponin of 13. Patient's EKG reviewed showed sinus rhythm with a rate of 97 bpm with PACs noted with evidence of first-degree AV block with a NH interval of 240. Patient's chest x-ray reviewed box of by radiology which showed mild cardiomegaly without overt CHF there is atelectasis or scar at the right and left base similar to the prior there is blunting of the costophrenic angle on the left which may present a trace effusion. Repeat EKG was performed and once again this showed sinus rhythm first-degree AV block with premature supraventricular complexes NH interval of 216 evidence of first-degree AV block which is consistent with her original EKG. Patient ambulated here in the emergency department well without any difficulty no hypoxia no tachycardia she felt at his baseline. I discussed results with the patient she would like to go home at this point time. She was advised to keep blood pressure log by randomly taking her blood pressure 2-3 times a day and write this down and call her doctor to see if they need to make any blood pressure medication adjustments. She was advised to return with worsening symptoms or concerns. She is agreeable to plan all question concerns answered she was discharged home in stable condition. Lab Data Labs: Laboratory Results - last 24 hr 04/20/25 04/20/25 10:20 12:20 WBC 6.0 RBC 4.41 Hgb 14.4 Hct 43.2 MCV 98.0 MCH 32.7 H MCHC 33.3 RDW Std Deviation 49.3 H RDW Coeff of Viktoria 13.6 Plt Count 233 MPV 10.3 Immature Gran % (Auto) 0.200 Neut % (Auto) 71.0 H Lymph % (Auto) 20.5 Bates % (Auto) 5.7 Eos % (Auto) 2.3 Baso % (Auto) 0.3 Absolute Neuts (auto) 4.3 Absolute Lymphs (auto) 1.23 Nucleated RBC % 0 Sodium 139 Potassium 4.2 Chloride 105 Carbon Dioxide 23.5 Anion Gap 10 BUN 18 Creatinine 0.65 L Est GFR (MDRD) Non-Af 91 BUN/Creatinine Ratio 27.6 H Glucose 96 Calcium 8.9 Troponin T High Sens 13 Troponin T Hi Sens 2 Hr 12 Radiography Diagnostic Testing: Clinical Impression(s) from Imaging Studies Chest X-Ray 04/20/25 11:15 IMPRESSION: There is mild cardiomegaly without overt CHF. There is atelectasis or scar at the right and left base, similar to the prior. There is blunting of the costophrenic angle on the left which may represent a trace effusion. [facility] T[facility] Chief Complaint: Hypertension ED Provider: Dewayne Vázquez Dx/Rx/DC Orders Clinical Impression: Hypertension, Paroxysmal atrial fibrillation Prescriptions: No Action levothyroxine 125 mcg tablet 125 mcg PO QODAY Patient Comments: alternating with 112mcg Rx Instructions: qod citalopram 10 mg tablet 10 mg PO DAILY levothyroxine 112 mcg tablet 112 mcg PO QODAY Patient Comments: alternating with 125mcg Allergy Relief (loratadine) 10 mg capsule 10 mg PO DAILY Align (B.longum) 10 million cell capsule 10,000,000 cell PO DAILY diltiazem HCl 120 mg capsule,extended release 24hr 120 mg PO QDAY Qty: 90 3RF flecainide 100 mg tablet 100 mg PO BID Qty: 180 3RF Primary Care Provider: Olivier Olmstead Chi Referrals: Olivier Olmstead Chi, MD [Primary Care Provider] - Activity Restrictions/Additional Instructions: Follow-up with your doctor in outpatient setting to see if they need to make any adjustments to your blood pressure medication. Randomly take your blood pressure 2-3 times a day write down what the time was that he took it and the blood pressure reading. Take this log to your doctor's office further review to see if they need to make any medication adjustments. Return with any other concerns Print Language: Belgian Disposition Disposition: Home, Self Care
[2025-04-20 13:28] LABS: Troponin T High Sens 2 HR 12 ng/L (<=14)
--- NOTE | 2025-04-20 14:23 | EKG12_ITS ---
Test Reason : repeat Blood Pressure : */* mmHG Vent. Rate : 92 BPM Atrial Rate : 92 BPM P-R Int : 216 ms QRS Dur : 138 ms QT Int : 404 ms P-R-T Axes : * -60 14 degrees QTcB Int : 499 ms probable atrial fibrillation Left axis deviation Non-specific intra-ventricular conduction block Minimal voltage criteria for LVH, may be normal variant ( Bronson product ) Abnormal ECG Confirmed by MAGI FERNANDEZ MD ([id number]), desk editor GRISELDA HUERTA ([id number]) on 04/21/2025 11:12:16 AM Referred By: Confirmed By: MAGI FERNANDEZ MD
== END 2025-04-20 14:46 | disposition home or self-care (01) ==
PROVIDERS: Emergency Provider Emergency Medicine; PCP Family Medicine Geriatric Medicine; Visit Provider Emergency Medicine
DX: I10 Essential (primary) hypertension (principal); I48.0 Paroxysmal atrial fibrillation; Z79.899 Other long term (current) drug therapy; Z87.891 Personal history of nicotine dependence
CPT/HCPCS: 71046; 80048; 84484; 85025; 93005; 99284; A4216

== ENCOUNTER → 2025-06-02 | Outpatient (CLI) | payer MEDICARE, SELFPAY ==
--- NOTE | 2025-06-02 16:40 | RAD_ITS ---
PROCEDURE: L/S SPINE MIN 4 VIEWS 06/02/2025 REASON FOR EXAM: LOW BACK PAIN TECHNIQUE: L/S SPINE MIN 4 VIEWS COMPARISON: 06/03/2024. FINDINGS: S shaped degenerative scoliosis. Mild osteopenia. There are diffuse spondylotic changes. Findings are demonstrated to by diffuse disc space narrowing, osteophyte formation and degenerative endplate sclerosis. There is diffuse facet joint arthropathy with secondary bilateral neural foramina narrowing. No fracture or dislocation is seen. No aggressive lytic or blastic bony lesion is noted. RAD/L/S Spine Min 4 Views IMPRESSION: Spondylosis. Findings have mildly progressed. Reading [facility]
== END | disposition home or self-care (01) ==
LOC: RAD 16:34
PROVIDERS: PCP Family Medicine Geriatric Medicine; Referring Provider Family Medicine Geriatric Medicine; Visit Provider Family Medicine Geriatric Medicine
DX: M54.50 Low back pain, unspecified (principal)
CPT/HCPCS: 72110

== ENCOUNTER 2025-06-07 20:02 | Emergency (ER) | payer MEDICARE, SELFPAY ==
[2025-06-07 20:03] VITALS: BP 174/98; PULSE 115; RESP 20; TEMP 36.6; O2SAT 94
[2025-06-07 20:05] VITALS: BMI 38.4
[2025-06-07 21:00] VITALS: BP 158/94; PULSE 109; RESP 18; O2SAT 95
--- NOTE | 2025-06-07 21:16 | EX.ED.DYSGE1 ---
HPI History of Present Illness Chief Complaint: Palpitations Informant: patient Onset/Context/Timing Onset: Yesterday Context: Sudden Onset Timing: Continuous Quality: Irregular, pressure Location: Chest Worsened by: Nothing Relieved by: Nothing Narrative Narrative: Patient presents with palpitations that began yesterday. Patient states it began rather suddenly. Patient states it has been constant. Patient states it feels like her heart is beating irregular. Patient has a history of paroxysmal atrial fibrillation. Patient states nothing makes her symptoms better and nothing makes it worse. Patient denies any shortness of breath. Patient does admit to a mild cough. Patient denies any nausea or vomiting. Patient denies any diaphoresis. [facility] Medical History Muscular dystrophy Paroxysmal atrial tachycardia Non-rheumatic mitral regurgitation Nonrheumatic mitral (valve) prolapse Paroxysmal atrial fibrillation History of kidney stones Left bundle branch block Mupjusj-Gsihn-Cydsw disease Hypotension Depression Home Medications ?Medication ?Instructions ?Recorded ?Last Taken ?Type levothyroxine 125 mcg tablet 125 mcg PO QODAY 11/28/23 04/19/25 History diltiazem HCl 120 mg 120 mg PO QDAY HEART #90 caps 07/24/24 04/19/25 Rx capsule,extended release 24 hr flecainide 100 mg tablet 100 mg PO BID HEART #180 tabs 07/24/24 04/20/25 Rx levothyroxine 112 mcg tablet 112 mcg PO QODAY 04/20/25 04/20/25 History Allergy/AdvReac Type Severity Reaction Status Date / Time prednisone Allergy Intermediate Rash Verified 05/18/25 09:40 adhesive AdvReac Rash Verified 05/18/25 09:40 Family History Mother Hypertension Breast cancer Brother Colon cancer Sister Hypertension Daughter CAD (coronary artery disease) Father Colon cancer Surgical History History of lithotripsy (~10/2017) Hx of cholecystectomy H/O: section H/O: hysterectomy Hx of knee surgery Hx of foot surgery History of tonsillectomy Social History Smoking Status: Former smoker how long ago did patient quit smokin years ago alcohol intake: current alcohol intake frequency: a few times a month caffeine: Yes Type: coffee Number of servings: 2 ROS ROS ED Constitutional Constitutional ED: Denies chills or fever(s) Eyes Eyes: Denies blurry vision or change in vision ENT ENT ED: Denies rhinorrhea or sore throat Cardiovascular Cardiovascular: Reports chest pain and palpitations Respiratory/Chest Respiratory/Chest: Reports cough; Denies dyspnea Gastrointestinal Gastrointestinal: Denies nausea or vomiting Genitourinary Genitourinary ED: Denies dysuria or hematuria Musculoskeletal Musculoskeletal: Denies back pain or neck pain Integumentary Denies abscess or rash Neurologic Neurologic: Reports headache(s); Denies weakness Allergic/Immunologic Allergic/Immunologic ED: Denies mouth swelling or urticaria EXAM Physical Exam Const Vital Signs: 06/07/25 20:03 06/07/25 20:56 06/07/25 21:00 Temperature 97.9 F Temperature Source Oral Pulse Rate 115 H 109 H Respiratory Rate 20 H 18 Respiratory Effort Normal Non-Labored Respiratory Pattern Normal Blood Pressure 174/98 H 158/94 H Blood Pressure Mean 123 115 Pulse Ox 94 95 Oxygen Delivery Method Room Air Room Air 06/07/25 21:47 06/07/25 22:00 06/07/25 23:00 Temperature Temperature Source Pulse Rate 114 H 122 H Respiratory Rate 16 16 Respiratory Effort Respiratory Pattern Blood Pressure 154/92 H 148/87 H Blood Pressure Mean 112 107 Pulse Ox 94 95 93 Oxygen Delivery Method Room Air Room Air Room Air 06/08/25 00:00 06/08/25 01:00 06/08/25 02:00 Temperature Temperature Source Pulse Rate 120 H 120 H 123 H Respiratory Rate 16 16 17 Respiratory Effort Respiratory Pattern Blood Pressure 137/96 H 153/96 H 129/86 H Blood Pressure Mean 109 115 100 Pulse Ox 94 97 93 Oxygen Delivery Method Room Air Room Air Room Air 06/08/25 02:42 Temperature 98 F Temperature Source Pulse Rate 118 H Respiratory Rate 18 Respiratory Effort Respiratory Pattern Blood Pressure 124/92 H Blood Pressure Mean 102 Pulse Ox 94 Oxygen Delivery Method Positive well nourished and well developed General Appearance ED: well developed and NAD HEENT Reports moist mucous membranes Neck supple and no JVD Chest Wall palpation of chest normal Resp normal respiratory effort and clear to auscultation bilaterally Cardio Rate: tachycardic Rhythm: abnormal rhythm irregularly irregular GI non-tender and non-distended Palpation: soft Extremity normal to inspection Neuro oriented x3, CN's II-XII intact bilaterally and no sensory deficits noted Sensorium / Orientation: alert Motor Exam: strength 5/5 throughout Psych mental status grossly normal MDM MDM MDM Narrative Medical decision making narrative: Differential diagnosis includes cardiac dysrhythmia, cardiac ischemia, pneumonia, electrolyte abnormality, coagulopathy, hyperthyroidism, hypothyroidism, hypomagnesemia, and anxiety. EKG will be obtained to assess for cardiac dysrhythmia and cardiac ischemia. Chest x-ray will be obtained to assess for pneumonia and bronchitis. CBC will be obtained to assess for leukocytosis and anemia. Basic metabolic profile will be obtained to assess for electrolyte abnormality and renal function. With INR and PTT will be obtained. Serum magnesium level will be obtained to assess for hypermagnesemia and hypomagnesemia. TSH will be obtained to assess for hyperthyroidism and hypothyroidism. High-sensitivity troponin will be obtained to assess for cardiac ischemia. 2-hour repeat high-sensitivity troponin will be obtained to assess for ongoing cardiac ischemia. History & Record Review Additional record(s) reviewed:: Prior outpatient record, Prior ED visit and Prior labs Lab Data Attestation: I reviewed the patient's lab results. Lab results narrative: CBC was reviewed and was within normal limits. Basic metabolic profile was reviewed and was within normal limits. Initial high-sensitivity troponin was reviewed and is slightly elevated at 15. 2-hour repeat high-sensitivity troponin was reviewed and was slightly elevated at 19. Serum magnesium level was reviewed and was normal at 2.3. TSH was reviewed and was normal at 0.995. PT with INR and PTT were reviewed and were within normal limits. Labs: Laboratory Results - last 24 hr 06/07/25 06/07/25 06/08/25 21:05 23:19 01:17 WBC 7.4 RBC 4.57 Hgb 14.9 Hct 44.5 MCV 97.4 MCH 32.6 H MCHC 33.5 RDW Std Deviation 49.0 H RDW Coeff of Viktoria 13.6 Plt Count 261 MPV 10.9 Immature Gran % (Auto) 0.500 Neut % (Auto) 53.4 Lymph % (Auto) 36.1 Holmes % (Auto) 7.3 Eos % (Auto) 2.4 Baso % (Auto) 0.3 Absolute Neuts (auto) 3.9 Absolute Lymphs (auto) 2.66 Nucleated RBC % 0 PT 12.5 INR 0.9 APTT 20.6 L Sodium 138 Potassium 4.3 Chloride 104 Carbon Dioxide 23.0 Anion Gap 11 BUN 19 Creatinine 0.78 Estim Creat Clear Calc 66.87 Est GFR (MDRD) Non-Af 79 BUN/Creatinine Ratio 23.8 H Glucose 95 Calcium 9.3 Magnesium 2.3 H Troponin T High Sens 15 H D Troponin T Hi Sens 2 Hr 19 H Troponin T Hi Sens 4Hr 17 H TSH 0.995 Radiography Chest X-Ray - ED: 1 View, Read by ED Physician, Read by Radiologist, No Acute Disease and Cardiomegaly Diagnostic Testing: Clinical Impression(s) from Imaging Studies Chest X-Ray 06/07/25 21:53 IMPRESSION: Stable mild cardiomegaly with slightly improved mild pulmonary vascular congestion. Reading Location: [facility] Portable 1 view chest x-ray was obtained. On my independent interpretation, lung medrano show mild pulmonary vascular congestion. There is mild cardiomegaly. Bony thorax is normal. There is no acute process noted. Radiologist also interpreted the x-ray and agrees. EKG Initial EKG: Attestation: I personally reviewed and interpreted this EKG as follows: Interpretation: Atrial Fibrillation (115), LBBB and Non-Specific ST Changes Comments: EKG was obtained. On my independent interpretation, shows atrial fibrillation with a rate of 115. QRS interval was slightly prolonged at 156 ms. QTc interval was prolonged at 525 ms. There is left axis deviation -61. There is a left bundle branch block pattern noted. There are nonspecific ST-T wave changes noted. Prior EKG tracings: available for review Prior: Unchanged (04/20/2025) Follow-up EKG: Attestation: I personally reviewed and interpreted this EKG as follows: Interpretation: Sinus Tachycardia (117) and Non-Specific ST Changes Comments: Repeat EKG was obtained. On my independent interpretation, which showed sinus tachycardia cardia with a rate of 117. ND interval was normal at 120 ms. QRS interval was prolonged at 142 ms. QTc interval was prolonged at 527 ms. There is left axis deviation at -50. There is a nonspecific intraventricular conduction delay. There is left ventricular hypertrophy with nonspecific ST-T wave changes. Treatment and Re-Evaluation :: Patient was given aspirin here. Patient was given a dose of Cardizem. Patient's heart rate remained elevated in the 120s. Patient was given a dose of metoprolol. Patient converted to sinus rhythm. Patient is feeling better on reevaluation. 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 Patient was instructed to continue with the medications as previously prescribed. Patient was instructed to return to placental weight. Patient understood and was agreeable with the plan. All questions were answered. Discharge Plan Triage Chief Complaint: Palpitations ED Provider: Carlos Darnell Dx/Rx/DC Orders Clinical Impression: Paroxysmal atrial fibrillation, Left bundle branch block, CMT (Fdjutcv-Behiz-Tshir disease) Instructions: ED AFIB, ED Palpitations Prescriptions: No Action levothyroxine 125 mcg tablet 125 mcg PO QODAY Patient Comments: alternating with 112mcg Rx Instructions: qod levothyroxine 112 mcg tablet 112 mcg PO QODAY Patient Comments: alternating with 125mcg diltiazem HCl 120 mg capsule,extended release 24hr 120 mg PO QDAY Qty: 90 3RF flecainide 100 mg tablet 100 mg PO BID Qty: 180 3RF Primary Care Provider: Olivier Olmstead Chi Referrals: Anastacio Scruggs MD [Med Staff - Active Staff] - Keep Ken appointment Olivier Olmstead Chi, MD [Primary Care Provider] - 3-5 Days Print Language: Filipino Disposition Disposition: Home, Self Care
[2025-06-07 21:47] VITALS: O2SAT 94
--- NOTE | 2025-06-07 21:47 | EKG12_ITS ---
Test Reason : PALPITATIONS Blood Pressure : */* mmHG Vent. Rate : 115 BPM Atrial Rate : 220 BPM P-R Int : * ms QRS Dur : 156 ms QT Int : 380 ms P-R-T Axes : -74 -61 29 degrees QTcB Int : 525 ms Atrial flutter with variable A-V block Left axis deviation Left bundle branch block Abnormal ECG Confirmed by JIM RHODES, MAGI ([id number]), offline editor GRISELDA HUERTA ([id number]) on 06/08/2025 1:17:13 PM Referred By: Carlos Darnell Confirmed By: MAGI FERNANDEZ MD
--- NOTE | 2025-06-07 21:53 | RAD_ITS ---
PROCEDURE: CHEST 1 VIEW (PORTABLE) 06/07/2025 REASON FOR EXAM: CHEST PAIN TECHNIQUE: Frontal view of the chest. COMPARISON: 04/20/2025 FINDINGS: Hardware: None. Heart: Heart size is mildly enlarged but stable. Lungs: Slightly improved mild pulmonary vascular congestion. No definite focal consolidation or pneumothorax. Bones: The bones are unremarkable. RAD/Chest 1 View (Portable) IMPRESSION: Stable mild cardiomegaly with slightly improved mild pulmonary vascular congest ion. Reading [facility]
[2025-06-07 22:00] VITALS: BP 154/92; PULSE 114; RESP 16; O2SAT 95
[2025-06-07 22:10] LABS: Hematocrit 44.5 % (37-47); Hemoglobin 14.9 g/dL (12.0-15.0); Immature Granulocytes Count 0.040 X10^3/uL (0.0-0.0); Mean Corp Hgb Conc 33.5 g/dL (32-36); Mean Corpuscular Volume 97.4 fL (81-99); Mean Platelet Vol. 10.9 fl (6.2-12.0); NRBC Flagged by Analyzer 0 % (0-5); Platelet Count 261 K/mm3 (150-450); RBC Distribution Width CV 13.6 % (11.6-14.6); RBC Distribution Width SD 49.0 fl (35.1-43.9); Red Blood Count 4.57 M/mm3 (4.2-5.4); White Blood Count 7.4 K/mm3 (4.4-11.0)
[2025-06-07 22:15] LABS: Partial Thromboplast Time 20.6 Seconds (24.1-36.2); Prothrombin Time (Protime)PT. 12.5 SECONDS (11.7-14.9)
[2025-06-07 22:34] LABS: Anion Gap 11 (5-15); BUN 19 mg/dL (4-19); BUN/Creat Ratio 23.8 RATIO (10-20); Calcium,Total 9.3 mg/dL (7.6-11.0); Carbon Dioxide 23.0 mmol/L (21.0-32.0); Chloride 104 mmol/L (98-108); Estimated Creatinine Clearance 66.87 ml/min (50-250); Glucose 95 mg/dL (70-99); Magnesium 2.3 mg/dL (1.5-2.2); Potassium 4.3 mmol/L (3.3-5.1); Troponin T High Sensitivity 15 ng/L (<=14)
--- OUTSIDE RECORDS SUMMARY | 2025-06-07 22:34 | XMS RPT_ITS | CCD ---
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 Performed By: #### L 501.9520, L506.1001, L500.4100, L500.4050, L100.0100 ####[facility] [address] [place], [address] Lymphocytes/100 WBC (Bld) 24.8 % Normal 19-41 [facility] Comment on above: Performed By: #### L 501.9520, L506.1001, L500.4100, L500.4050, L100.0100 ####[facility] [address] [place], [address] MCH (RBC) [Entitic mass] 32.4 pg High 27.0-32.0 [facility] Comment on above: Performed By: #### L 501.9520, L506.1001, L500.4100, L500.4050, L100.0100 ####[facility] [address] [place], [address] MCHC (RBC) [Mass/Vol] 33.0 g/dL Normal 32-36 [facility] Comment on above: Performed By: #### L 501.9520, L506.1001, L500.4100, L500.4050, L100.0100 ####[facility] [address] [place], [address] MCV (RBC) [Entitic vol] 98.0 fL Normal 81-99 [facility] Comment on above: Performed By: #### L 501.9520, L506.1001, L500.4100, L500.4050, L100.0100 ####[facility] [address] [place], [address] Monocytes/100 WBC (Bld) 8.1 % Normal 0-10 [facility] Comment on above: Performed By: #### L 501.9520, L506.1001, L500.4100, L500.4050, L100.0100 ####[facility] [address] [place], [address] Neutrophils/100 WBC (Bld) 63.6 % Normal 47-70 [facility] Comment on above: Performed By: #### L 501.9520, L506.1001, L500.4100, L500.4050, L100.0100 ####[facility] [address] [place], [address] Nucleated RBC (Bld) [#/Vol] 0 10*3/uL Normal 0-5 [facility] Comment on above: Performed By: #### L 501.9520, L506.1001, L500.4100, L500.4050, L100.0100 ####[facility] [address] [place], [address] Platelet mean volume (Bld) [Entitic vol] 10.7 fL Normal 6.2-12.0 [facility] Comment on above: Performed By: #### L 501.9520, L506.1001, L500.4100, L500.4050, L100.0100 ####[facility] [address] [place], [address] Platelets (Bld) [#/Vol] 191 10*3/uL Normal 150-450 [facility] Comment on above: Performed By: #### L 501.9520, L506.1001, L500.4100, L500.4050, L100.0100 ####[facility] [address] [place], [address] RBC (Bld) [#/Vol] 4.60 10*6/uL Normal 4.2-5.4 [facility] Comment on above: Performed By: #### L 501.9520, L506.1001, L500.4100, L500.4050, L100.0100 ####[facility] [address] [place], [address] RDW SD 48.5 fl High 35.1-43.9 [facility] Comment on above: Performed By: #### L 501.9520, L506.1001, L500.4100, L500.4050, L100.0100 ####[facility] [address] [place], [address] WBC (Bld) [#/Vol] 4.6 10*3/uL Normal 4.4-11.0 [facility] Comment on above: Performed By: #### L 501.9520, L506.1001, L500.4100, L500.4050, L100.0100 ####[facility] [address] [place], [address] Calculated very low density lipoprotein (VLDL) cholesterol measurementOrdered By: Olivier Olmstead on 12-31-2024 Calculated very low density lipoprotein (VLDL) cholesterol measurement 22 mg/dL 5-40 [facility] VLDL Cholesterol 22 mg/dL 5-40 [facility] Carbon dioxide, total [Moles /volume] in Central venous bloodOrdered By: Olivier Olmstead on 12-31-2024 CO2 [Moles/Vol] 20.8 mmol/L Low 21.0-32.0 [facility] Chloride assayOrdered By: Dre Olmstead on 12-31-2024 Chloride [Moles/Vol] 105 mmol/L 98-108 [facility] Comprehensive Metabolic Prof ilon 12-31-2024 Albumin [Mass/Vol] 4.1 g/dL Normal 3.4-4.8 [facility] Comment on above: Performed By: #### L 501.9520, L506.1001, L500.4100, L500.4050, L100.0100 ####[facility] [address] [place], [address] Albumin/Globulin [Mass ratio] 1.4 {ratio} Normal 0.9-2.4 [facility] Comment on above: Performed By: #### L 501.9520, L506.1001, L500.4100, L500.4050, L100.0100 ####[facility] [address] [place], [address] ALK PHOS 122 U/L High 35-104 [facility] Comment on above: Performed By: #### L 501.9520, L506.1001, L500.4100, L500.4050, L100.0100 ####[facility] [address] [place], [address] ALT [Catalytic activity/Vol] 35 U/L Normal <=34 [facility] Comment on above: Performed By: #### L 501.9520, L506.1001, L500.4100, L500.4050, L100.0100 ####[facility] [address] [place], [address] AST [Catalytic activity/Vol] 36 U/L High <=31 [facility] Comment on above: Performed By: #### L 501.9520, L506.1001, L500.4100, L500.4050, L100.0100 ####[facility] [address] [place], [address] Bilirubin [Mass/Vol] 0.53 mg/dL Normal 0.00-1.30 [facility] Comment on above: Performed By: #### L 501.9520, L506.1001, L500.4100, L500.4050, L100.0100 ####[facility] [address] [place], [address] BUN/CRE 27.7 RATIO High 10-20 [facility] Comment on above: Performed By: #### L 501.9520, L506.1001, L500.4100, L500.4050, L100.0100 ####[facility] [address] [place], [address] Calcium [Mass/Vol] 9.7 mg/dL Normal 7.6-11.0 [facility] Comment on above: Performed By: #### L 501.9520, L506.1001, L500.4100, L500.4050, L100.0100 ####[facility] [address] [place], [address] Chloride [Moles/Vol] 105 mmol/L Normal 98-108 [facility] Comment on above: Performed By: #### L 501.9520, L506.1001, L500.4100, L500.4050, L100.0100 ####[facility] [address] [place], [address] CO2 [Moles/Vol] 20.8 mmol/L Low 21.0-32.0 [facility] Comment on above: Performed By: #### L 501.9520, L506.1001, L500.4100, L500.4050, L100.0100 ####[facility] [address] [place], [address] Creatinine [Mass/Vol] 0.67 mg/dL Low 0.70-1.20 [facility] Comment on above: Performed By: #### L 501.9520, L506.1001, L500.4100, L500.4050, L100.0100 ####[facility] [address] [place], [address] GAP 15 Normal 5-15 [facility] Comment on above: Performed By: #### L 501.9520, L506.1001, L500.4100, L500.4050, L100.0100 ####[facility] [address] [place], [address] GFR/1.73 sq M.predicted among non-blacks MDRD (S/P/Bld) [Vol rate/Area] 91 mL/min/{1.73_m2} Normal >60 [facility] Comment on above: Result Comment: mL/m in/1.73m2 CKD-EPI Creatinine Equation (2020) Performed By: #### L 501.9520, L506.1001, L500.4100, L500.4050, L100.0100 ####[facility] [address] [place], [address] Globulin (S) [Mass/Vol] 2.9 g/dL Normal 2.2-4.2 [facility] Comment on above: Performed By: #### L 501.9520, L506.1001, L500.4100, L500.4050, L100.0100 ####[facility] [address] [place], [address] Glucose [Mass/Vol] 92 mg/dL Normal 70-99 [facility] Comment on above: Performed By: #### L 501.9520, L506.1001, L500.4100, L500.4050, L100.0100 ####[facility] [address] [place], [address] Potassium [Moles/Vol] 3.9 mmol/L Normal 3.3-5.1 [facility] Comment on above: Performed By: #### L 501.9520, L506.1001, L500.4100, L500.4050, L100.0100 ####[facility] [address] [place], [address] Sodium [Moles/Vol] 141 mmol/L Normal 133-145 [facility] Comment on above: Performed By: #### L 501.9520, L506.1001, L500.4100, L500.4050, L100.0100 ####[facility] [address] [place], [address] T PROT 7.0 g/dL Normal 5.9-8.4 [facility] Comment on above: Performed By: #### L 501.9520, L506.1001, L500.4100, L500.4050, L100.0100 ####[facility] [address] [place], [address] Urea nitrogen [Mass/Vol] 19 mg/dL Normal 4-19 [facility] Comment on above: Performed By: #### L 501.9520, L506.1001, L500.4100, L500.4050, L100.0100 ####[facility] [address] [place], [address] Eosinophil percentageOrdered By: Olivier Olmstead on 12-31-2024 Eosinophils/100 WBC (Bld) 2.9 % 0-5 [facility] Erythrocyte distribution wid th ratioOrdered By: Olivier Olmstead on 12-31-2024 Erythrocyte distribution width (RBC) [Ratio] 13.4 % 11.6-14.6 [facility] Erythrocyte distribution wid th standard deviationOrdered By: Olivier Olmstead on 12-31-2024 Erythrocyte distribution width (RBC) [Entitic vol] 48.5 fL High 35.1-43.9 [facility] Erythrocyte distribution width (RBC) [Ratio] 48.5 fl High 35.1-43.9 [facility] GFR/1.73 sq M.predicted [facility] non-blacks MDRD (S/P/Bld) [Vol rate/Area]Ordered By: Olivier Olmstead on 12-31-2024 Estimated GFR (MDRD) Non-Af Amer 91 >60 [facility] Comment on above: mL/min/1.73m2 CKD-EP I Creatinine Equation (2020) Glomerular filtration rate ( GFR) estimation/1.73 sq m using serum, plasma, or whole bOrdered By: Olivier Olmstaed on 12-31-2024 GFR/1.73 sq M.predicted among non-blacks MDRD (S/P/Bld) [Vol rate/Area] 91 mL/min/{1.73_m2} >60 [facility] Comment on above: mL/min/1.73m2 CKD-EP I Creatinine Equation (2020) Hematocrit Auto (Bld) [Volum e fraction]Ordered By: Olivier Olmstead on 12-31-2024 Hematocrit (Bld) [Volume fraction] 45.1 % 37-47 [facility] Hemoglobin measurementOrdere d By: Olivier Olmstead on 12-31-2024 Hemoglobin (Bld) [Mass/Vol] 14.9 g/dL 12.0-15.0 [facility] Immature granulocytes/100 WB C Auto (Bld)Ordered By: Olivier Olmstead on 12-31-2024 Immature granulocytes/100 WBC (Bld) 0.200 % 0.0-0.9 [facility] Comment on above: IG% - Immature Granu locytes (promyelocytes, myelocytes and metamyelocytes) > 1% indicates that a LEFT SHIFT is Present. L506.1001on 12-31-2024 Vitamin D 25-OH 37.5 ng/mL Normal 30-100 [facility] Comment on above: Result Comment: Damaris min D Status Deficiency: <20 ng/mL (50nmol/L) Insufficiency: 20-30 ng/mL (50-75 nmol/L) Sufficiency: 30-100 ng/mL (75-250 nmol/L) Toxicity: >100 ng/mL (>250 nmol/L) Performed By: #### L 501.9520, L506.1001, L500.4100, L500.4050, L100.0100 ####[facility] [address] [place], [place], [address] LDL calc ser/plasOrdered By: Olivier Olmstead on 12-31-2024 Cholesterol in LDL [Mass/Vol] 114 mg/dL [facility] Comment on above: Zhwfdlbptj=394-471 m g/dL & Higher Eanf=111 mg/dL or greater LDL Cholesterol, Calculated 114 mg/dL [facility] Comment on above: Cwkplyxvfh=487-180 m g/dL & Higher Llia=080 mg/dL or greater Laboratory - Chemistry and C hemistry - challengeOrdered By: Olivier Olmstead on 12-31-2024 AST [Catalytic activity/Vol] 36 U/L High <32 [facility] Lipid Profileon 12-31-2024 CHOL:HDL 3.04 Normal [facility] Comment on above: Performed By: #### L 501.9520, L506.1001, L500.4100, L500.4050, L100.0100 ####[facility] [address] [place], [place], [id number]) Cholesterol [Mass/Vol] 203 mg/dL High <=200 [facility] Comment on above: Result Comment: Chol esterol level, Desirable <200 mg/dL Borderline high cholesterol 200-239 mg/dL High cholesterol >=240 mg/dL Recommendations of the NCEP Adult Treatment Panel for the following risk-cutoff thresholds for the [place] population. Performed By: #### L 501.9520, L506.1001, L500.4100, L500.4050, L100.0100 ####[facility] [address] [place], [address] Cholesterol in HDL [Mass/Vol] 67 mg/dL Normal [facility] Comment on above: Result Comment: Magda onal Cholesterol Education Program (NCEP) guidelines: <40 mg/dL: Low HDL-cholesterol (major risk factor for CHD) >= 60 mg/dL: High HDL-cholesterol (negative risk factor for CHD) HDL-cholesterol is affected by a number of factors, e.g. smoking, exercise, hormones, sex and age. Performed By: #### L 501.9520, L506.1001, L500.4100, L500.4050, L100.0100 ####[facility] [address] [place], [address] Cholesterol in LDL [Mass/Vol] 114 mg/dL Normal [facility] Comment on above: Result Comment: Bord bmvjlg=322-315 mg/dL Higher Czif=420 mg/dL or greater Performed By: #### L 501.9520, L506.1001, L500.4100, L500.4050, L100.0100 ####[facility] [address] [place], [address] Cholesterol in VLDL [Mass/Vol] 22 mg/dL Normal 5-40 [facility] Comment on above: Performed By: #### L 501.9520, L506.1001, L500.4100, L500.4050, L100.0100 ####[facility] [address] [place], [address] Triglyceride [Mass/Vol] 112 mg/dL Normal [facility] Comment on above: Result Comment: The drugs N-Acetylcysteine and Metamizole may falsely depress this assay. Normal range: <150 mg/dL Borderline High: 150-199 mg/dL High: 200-499 mg/dL Very High: >500 mg/dL Performed By: #### L 501.9520, L506.1001, L500.4100, L500.4050, L100.0100 ####[facility] [address] [place], [address] Lymphocytes Auto (Unsp spec) [#/Vol]Ordered By: Olivier Olmstead on 12-31-2024 Lymphocytes (Bld) [#/Vol] 1.13 10*3/uL 0.83-4.51 [facility] Lymphocytes/100 WBC Auto (Un sp spec)Ordered By: Olivier Olmstead on 12-31-2024 Lymphocytes/100 WBC (Bld) 24.8 % 19-41 [facility] MCV (mean corpuscular volume ) determinationOrdered By: Olivier Olmstead on 12-31-2024 MCV (RBC) [Entitic vol] 98.0 fL 81-99 [facility] Mean corpuscular hemoglobin (MCH) determinationOrdered By: Olivier Olmstead on 12-31-2024 MCH (RBC) [Entitic mass] 32.4 pg High 27.0-32.0 [facility] Mean corpuscular hemoglobin concentration (MCHC) determinationOrdered By: Olivier Olmstead on 12-31-2024 MCHC (RBC) [Mass/Vol] 33.0 g/dL 32-36 [facility] Mean platelet volume determi nationOrdered By: Olivier Olmstead on 12-31-2024 Platelet mean volume (Bld) [Entitic vol] 10.7 fL 6.2-12.0 [facility] Monocyte percentageOrdered B y: Olivier Olmstead on 12-31-2024 Monocytes/100 WBC (Bld) 8.1 % 0-10 [facility] Neutrophil percentageOrdered By: Olivier Olmstead on 12-31-2024 Neutrophils/100 WBC (Bld) 63.6 % 47-70 [facility] Nucleated red blood cell per centageOrdered By: Olivier Olmstead on 12-31-2024 Nucleated RBC/100 WBC (Bld) [Ratio] 0 % 0-5 [facility] Platelet countOrdered By: Dre Olmstead on 12-31-2024 Platelets (Bld) [#/Vol] 191 10*3/uL 150-450 [facility] Potassium (Unsp spec) [Mass/ Vol]Ordered By: Olivier Olmstead on 12-31-2024 Potassium [Moles/Vol] 3.9 mmol/L 3.3-5.1 [facility] Potassium measurement (mass/ volume)Ordered By: Olivier Olmstead on 12-31-2024 Potassium (Unsp spec) [Mass/Vol] 3.9 mmol/L 3.3-5.1 [facility] RBC Auto (Bld) [#/Vol]Ordere d By: Olivier Olmstead on 12-31-2024 RBC (Bld) [#/Vol] 4.60 10*6/uL 4.2-5.4 [facility] Screening total cholesterol/ high density lipoprotein (HDL) cholesterol ratioOrdered By: Olivier Olmstead on 12-31-2024 Cholesterol.total/Anna sterol in HDL [Mass ratio] 3.04 {ratio} [facility] Serum creatinine measurement (mass/volume)Ordered By: Olivier Olmstead on 12-31-2024 Creatinine [Mass/Vol] 0.67 mg/dL Low 0.70-1.20 [facility] Serum globulin measurementOr dered By: Olivier Olmstead on 12-31-2024 Globulin (S) [Mass/Vol] 2.9 g/dL 2.2-4.2 [facility] Serum glucose measurement (m ass/volume)Ordered By: Olivier Olmstead on 12-31-2024 Glucose [Mass/Vol] 92 mg/dL 70-99 [facility] Serum or plasma alanine condon otransferase (ALT) measurementOrdered By: Olivier Olmstead on 12-31-2024 ALT [Catalytic activity/Vol] 35 U/L <35 [facility] Serum or plasma albumin hesham urement (mass/volume)Ordered By: Olivier Olmstead on 12-31-2024 Albumin [Mass/Vol] 4.1 g/dL 3.4-4.8 [facility] Serum or plasma albumin/glob ulin mass ratioOrdered By: Olivier Olmstead on 12-31-2024 Albumin/Globulin [Mass ratio] 1.4 {ratio} 0.9-2.4 [facility] Serum or plasma alkaline alee sphatase measurementOrdered By: Olivier Olmstead 12-31-2024 ALP [Catalytic activity/Vol] 122 U/L High 35-104 [facility] Serum or plasma calcium hesham urement (mass/volume)Ordered By: Olivier Olmstead 12-31-2024 Calcium [Mass/Vol] 9.7 mg/dL 7.6-11.0 [facility] Serum or plasma cholesterol in HDL measurement (mass/volume)Ordered By: Olivier Olmstead on 12-31-2024 Cholesterol in HDL [Mass/Vol] 67 mg/dL >40 [facility] Comment on above: National Cholesterol Education Program (NCEP) guidelines:<40 mg/dL: Low HDL-cholesterol (major risk factor for CHD)>= 60 mg/dL: High HDL-cholesterol (negative risk factor for CHD)HDL-cholesterol is affected by a number of factors, e.g. smoking, exercise, hormones, sex and age. Serum or plasma cholesterol measurement (mass/volume)Ordered By: Olivier Olmstead on 12-31-2024 Cholesterol [Mass/Vol] 203 mg/dL High <201 [facility] Comment on above: Cholesterol level, D esirable <200 mg/dLBorderline high cholesterol 200-239 mg/dLHigh cholesterol >=240 mg/dLRecommendations of the NCEP Adult Treatment Panel for the following risk-cutoff thresholds for the [place] population. Serum or plasma urea nitroge n measurement (mass/volume)Ordered By: Olivier Olmstead on 12-31-2024 Urea nitrogen [Mass/Vol] 19 mg/dL 4-19 [facility] Sodium levelOrdered By: Olivier Olmstead on 12-31-2024 Sodium [Moles/Vol] 141 mmol/L 133-145 [facility] TSH DL <= 0.005 mIU/L QnOrde red By: Olivier Olmstead on 12-31-2024 Thyroid Stimulating Hormone (TSH) 0.510 uIU/mL 0.300-4.200 [facility] TSH Qn 0.510 uIU/mL 0.300-4.200 [facility] Thyroid Stim Hormone (TSH)on 12-31-2024 TSH 0.510 uIU/mL Normal 0.300-4.200 [facility] Comment on above: Performed By: #### L 501.9520, L506.1001, L500.4100, L500.4050, L100.0100 ####[facility] [address] [place], [address] Total proteinOrdered By: Olivier Olmstead on 12-31-2024 Protein [Mass/Vol] 7.0 g/dL 5.9-8.4 [facility] Triglycerides measurementOrd ered By: Olivier Olmstead on 12-31-2024 Triglyceride [Mass/Vol] 112 mg/dL <199 [facility] Comment on above: The drugs N-Acetylcy steine and Metamizole may falsely depress this assay. Normal range: <150 mg/dLBorderline High: 150-199 mg/dLHigh: 200-499 mg/dLVery High: >500 mg/dL Vitamin D, 25-hydroxyOrdered By: Olivier Olmstead on 12-31-2024 Vitamin D 25-Hydroxy 37.5 ng/mL 30-100 [facility] Comment on above: Vitamin D StatusDefi ciency: <20 ng/mL (50nmol/L)Insufficiency: 20-30 ng/mL (50-75 nmol/L)Sufficiency: 30-100 ng/mL (75-250 nmol/L)Toxicity: >100 ng/mL (>250 nmol/L) White blood cell (WBC) count Ordered By: Olivier Olmstead on 12-31-2024 WBC (Bld) [#/Vol] 4.6 10*3/uL 4.4-11.0 [facility] 12 Lead EKG performed by [facility] on 12-25-2024 12 Lead EKG performed by [id number] [place] [address] 12 Lead EKG performed by [facility] 12/25/24 1010 MR#: [id number] Acct: [id number] Name: DONNA YATES Rep #: [id number] : 1950 74 From: Anastacio Scruggs MD Attending Dr: Dr. Anastacio Scruggs MD Status: DE P AMB Ordering Dr: Anastacio Scruggs MD Date: 12/25/24 Location: [facility] Sex: F C Admitted: [facility]/12 Lead EKG performed by [facility] ECG Report Interpretation --Sinus RhythmLow voltage in precordial leads. -Intraventricular conduction defect and left axis -possible anterior fascicular block consider ventricular hypertrophy. -Left atrial enlargement. -Poor R-wave progression ABNORMAL Electronically signed on 12/25/2024 at 12:[address] Anastacio Scruggs [employer] Version 8610 12/25/24 1219 Date Anastacio Scruggs MD CC: Dr. Olivier Olmstead MD Date Dictated: 12/25/24 1010 Date Transcribed: 12/25/24 1010 Garbage Collector: Signed Normal [facility] Cardiology Visit Reporton Cardiology Visit Report [facility] [address] [place] [address] OFFICE VISIT Date of Service: 12/25/24 MR#: [id number] Acct: [id number] Name: DONNA YATES Rep #: [id number] : 1950 Provider: Dr. Anastacio dumont MD Age/Sex: 74/F Location: [facility] [place] Status: Signed HPI HPI History of Present Illness Details: Patient is a 74-year-old white female that comes in today for monitoring of her cardiovascular disease. Patient has a history of paroxysmal atrial fibrillation she was first diagnosed 18 years ago. She is currently controlled on the combination of flecainide and diltiazem. The patient is not on oral anticoagulation she had a significant bleeding issue after a heart catheterization back in 2005 and has never been anticoagulated since then. It does appear that she is primarily in sinus rhythm since that point in time. The patient had a recent echocardiogram December 2023 showed an EF of 60% the left atrium was severely enlarged right atrium was mildly enlarged it was 2+ anteriorly directed mitral regurgitation and a right ventricular systolic pressure estimated 43 consistent with mild pulmonary hypertension. Patient had a pharmacologic nuclear stress test which showed no evidence of ischemia or scar in December 2023. Patient's last Holter December 2009 showed no atrial fibrillation. Patient reports she is doing fairly well in her home environment she notices a fullness at the base of her neck when she was in atrial fibrillation originally. She occasionally notices her heart rate goes up in the 90 to 100 bpm range but her resting heart rate today in the office was 83. Her EKG in the office shows normal sinus rhythm at 83 bpm there was low voltage in the precordial leads there is a nonspecific interventricular conduction delay with left axis deviation. She has left atrial enlargement noted and poor R wave progression. Patient denies any PND orthopnea denies any lower extremity edema. She does walk with a cane. Intake Vital Signs 07/07/24 13:35 11/21/24 11:30 12/25/24 11:27 Height 5 ft 3 in 5 ft 3 in 5 ft 3 in Weight: 168 lb BMI 29.7 BP 137/82 H Blood Pressure Location Lt brachial Position Sitting Respiration 18 Pulse 84 Pulse Source Monitor Pulse Oximetry (%) 94 Oxygen Delivery Method room air Intake Visit Reasons: 1 Y FU Sheet Catcher Required: No Accompanied by: Self Is patient in pain?: No Allergies prednisone Allergy (Intermediate, Verified 12/25/24 11:27) Rash adhesive Adverse Reaction (Verified 12/25/24 11:27) Rash Medications ???Medication ???Instructions ???Recorded ???Confirmed ???Type cyclobenzaprine 10 mg tablet 10 mg PO PRN PRN Pain Or Fever 12/25/24 History levothyroxine 112 mcg capsule 112 mcg PO QODAY 11/28/23 12/25/24 History levothyroxine 125 mcg tablet 125 mcg PO QODAY 11/28/23 12/25/24 History diltiazem HCl 120 mg 120 mg PO QDAY HEART #90 caps 06/3012/25/24 Rx capsule,extended release 24 hr flecainide 100 mg tablet 100 mg PO BID HEART #180 tabs 06/3012/25/24 Rx Ejection fraction %: 60 Have you fallen in the past year?: No PFSH Medical History Muscular dystrophy Paroxysmal atrial tachycardia Non-rheumatic mitral regurgitation Nonrheumatic mitral (valve) prolapse Paroxysmal atrial fibrillation History of kidney stones Left bundle branch block Njshywy-Eespa-Kgqmc disease Hypotension Depression Surgical History History of lithotripsy ( 10/2017) Hx of cholecystectomy H/O: section H/O: hysterectomy Hx of knee surgery Hx of foot surgery History of tonsillectomy Family History Mother Hypertension Breast cancer Brother Colon cancer Sister Hypertension Daughter CAD (coronary artery disease) Father Colon cancer Social History Smoking Status: Former smoker how long ago did patient quit smokin years ago alcohol intake: current alcohol intake frequency: a few times a month caffeine: Yes Type: coffee Number of servings: 2 ROS Const Const: Positive for fatigue and weakness ENT ENT: Positive for dizziness and balance problems Cardio Chest Pain: No Palpitations: No Edema: Bilateral (very minimal) Muscle aches with walking: None Resp Respiratory: Negative for SOB with activity, SOB at rest or SOB orthopnea SOB lying down GI GI: Negative nausea, vomiting or heartburn Musc Musc: Positive for muscle weakness and balance problems Neuro Neuro: Positive for dizziness, lightheadedness and weakness; Negative for near syncope or syncope Endo En (more content not included)... Normal [facility] ENTERIC PATHOGEN PANEL STOOL on 11-22-2024 EP PANEL Not detected for Campylobacter group, Salmonella species, Shigella species, Vibrio Group, Yersinia enterocolitica, EHEC (Shiga Toxin 1, Shiga Toxin 2), Norovirus Gl/Gll, and Rotavirus A. Other common stool pathogens are not detected on this panel include: Aeromonas/Plesiomonas or parasites. Order testing for these organisms separately if suspected. This is an amplified DNA test which makes it both specific and sensitive. Normal Reference Range = Not Detected Nucleic acid amplification test method CAMPYLOBACTER Not Detected Norovirus Not Detected Rotavirus Not Detected Salmonella Not Detected Shiga Toxin Not Detected Shigella sp. Not Detected VIBRIO Not Detected Yersinia Not Detected Normal [facility] Comment on above: Performed By: #### M 100.637 ####[facility] [address] [facility] [place], [address] Urine Cultureon 11-22-2024 URC Escherichia coli [place] Count 50,000-80,000 Escherichia coli: REACTION Ampicillin Islt MADALYN >=32 Ampicillin+Sulbac Islt MADALYN 16 I Cefepime Islt MADALYN 0.5 S cefTRIAXone Islt MADALYN 32 R Ciprofloxacin Islt MADALYN <=0.06 S B-Lactamase Extended Susc Islt NEG Gentamicin Islt MADALYN <=1 S levoFLOXacin Islt MADALYN <=0.12 S Meropenem Islt MADALYN <=0.25 S Nitrofurantoin Islt MADALYN <=16 S Pip+Tazo Islt MADALYN 8 S TMP SMX Islt MADALYN <=20 S Normal [facility] Comment on above: Performed By: #### M 100.678, L100.0100, M100.2200, L500.4050 ####[facility] [address] [facility]. [place], [place], [id number] Stool enteric pathogen panel by probe and target amplification methodOrdered By: Olivier Olmstead on 11-21-2024 Enteric Bacteriology [facility] Abdomen/Pelvis WITH Contrast on 11-20-2024 Abdomen/Pelvis WITH Contrast [facility] Imaging Services [address] [place] [address] Abdomen/Pelvis WITH Contrast MR#: [id number] Acct: [id number] Name: DONNA YATES Rep #: [id number] : [id number] F 74 From: Kale locke MD PCP: Dr. Olivier Olmstead MD Status: REG CLI Study: Abdomen/Pelvis WITH Contrast Date of Exam: Exam# [id number] Ordering Dr: Olivier Olmstead MD [id number] STUDY: CT ABDOMEN AND PELVIS WITH CONTRAST REASON FOR EXAM: Female, 74 years old. ABD PAIN, DIVERTICULITIS OF SIGMOID COLON. Left lower quadrant pain. Kidney stones. RADIATION DOSAGE (If Supplied By Facility): CTDIvol = ( 22.51 ) mGy, DLP = ( 1152.65 ) mGycm TECHNIQUE: Transaxial images were obtained from the dome of the diaphragm to the symphysis pubis with oral contrast. Oral and amp;amp; IV Gastrografin and amp;amp; 100mL Isovue-300 was administered. Sagittal and coronal images were reconstructed. Individualized dose optimization techniques were used for this CT. COMPARISON: Comparison is made with prior study dated December 20, 2023. FINDINGS: Minimal increase in markings at the lung bases suggestive of scarring. Coronary artery calcification. Normal liver. The patient is status post cholecystectomy. Normal spleen. Normal pancreas. Normal bilateral adrenal glands. Normal right kidney. Nonobstructive 3 mm calculus in the mid lateral aspect of the left kidney. There is a small hiatal hernia. Stable small duodenal diverticulum. Normal small intestine. There is diverticulosis, with thickening of the colon wall, and pericolonic inflammation changes consistent with acute diverticulitis. There is non-visualization of the appendix. There is scattered atherosclerotic calcification of the abdominal aorta, without a demonstrated aneurysm. Normal inferior vena cava. Normal retroperitoneum. Normal urinary bladder. There is absence of the uterus consistent with a prior hysterectomy. There is a 4 cm x 4 cm cystic structure in the left lower abdomen adjacent to the left psoas muscle. Small bilateral fat containing bilateral inguinal hernias. There are mild degenerative changes of the visualized lumbar spine. CT/Abdomen/Pelvis WITH Contrast IMPRESSION: Findings intraoperative noncomplicated acute sigmoid diverticulitis. Persistent cystic structure in the left hemipelvis adjacent to the left psoas muscle. Electronically Signed: Kale Peralta MD at 14:42 EST , CC: Dr. Olivier Olmstead MD Garbage Collector: Signed Normal [facility] Absolute neutrophil countOrd ered By: Olivier Olmstead on 11-20-2024 Neutrophils (Bld) [#/Vol] 4.1 10*3/uL 2.0-7.7 [facility] Albumin to globulin ratioOrd ered By: Olivier Olmstead on 11-20-2024 Albumin/Globulin [Mass ratio] 0.8 {ratio} Low 0.9-2.4 [facility] Basophil percentageOrdered B y: Olivier Olmstead on 11-20-2024 Basophils/100 WBC (Bld) 0.5 % 0-1 [facility] Bilirubin, totalOrdered By: Olivier Olmsetad on 11-20-2024 Bilirubin [Mass/Vol] 1.30 mg/dL High 0.20-1.00 [facility] Comment on above: For patients on eltr ombopag therapy, use of Dimension [facility] TBIL is not recommended. Blood urea nitrogen (BUN)/cr eatinine ratioOrdered By: Olivier Olmstead on 11-20-2024 Urea nitrogen/Creatinine [Mass ratio] 25.0 mg/mg High - [facility] CBC W/Diff, Automatedon 10-30 Absolute Lymph 1.04 X10 3/uL Normal 0.83-4.51 [facility] Comment on above: Performed By: #### M 100.678, L100.0100, M100.2200, L500.4050 ####[facility] [address] [place], [address] Absolute Neut 4.1 X10 3/uL Normal 2.0-7.7 [facility] Comment on above: Performed By: #### M 100.678, L100.0100, M100.2200, L500.4050 ####[facility] [address] [place], [address] Basophils/100 WBC (Bld) 0.5 % Normal 0-1 [facility] Comment on above: Performed By: #### M 100.678, L100.0100, M100.2200, L500.4050 ####[facility] [address] [place], [address] Eosinophils/100 WBC (Bld) 3.1 % Normal 0-5 [facility] Comment on above: Performed By: #### M 100.678, L100.0100, M100.2200, L500.4050 ####[facility] [address] [place], [address] Erythrocyte distribution width (RBC) [Ratio] 12.3 % Normal 11.6-14.6 [facility] Comment on above: Performed By: #### M 100.678, L100.0100, M100.2200, L500.4050 ####[facility] [address] [place], [address] Hematocrit (Bld) [Volume fraction] 40.1 % Normal 37-47 [facility] Comment on above: Performed By: #### M 100.678, L100.0100, M100.2200, L500.4050 ####[facility] [address] [place], [address] Hemoglobin (Bld) [Mass/Vol] 13.5 g/dL Normal 12.0-15.0 [facility] Comment on above: Performed By: #### M 100.678, L100.0100, M100.2200, L500.4050 ####[facility] [address] [place], [address] IG% 0.500 Normal 0.0-0.9 [facility] Comment on above: Result Comment: IG% - Immature Granulocytes (promyelocytes, myelocytes and metamyelocytes) > 1% indicates that a LEFT SHIFT is Present. Performed By: #### M 100.678, L100.0100, M100.2200, L500.4050 ####[facility] [address] [place], [address] Lymphocytes/100 WBC (Bld) 17.7 % Low 19-41 [facility] Comment on above: Performed By: #### M 100.678, L100.0100, M100.2200, L500.4050 ####[facility] [address] [place], [address] MCH (RBC) [Entitic mass] 32.0 pg Normal 27.0-32.0 [facility] Comment on above: Performed By: #### M 100.678, L100.0100, M100.2200, L500.4050 ####[facility] [address] [place], [address] MCHC (RBC) [Mass/Vol] 33.7 g/dL Normal 32-36 [facility] Comment on above: Performed By: #### M 100.678, L100.0100, M100.2200, L500.4050 ####[facility] [address] [place], [address] MCV (RBC) [Entitic vol] 95.0 fL Normal 81-99 [facility] Comment on above: Performed By: #### M 100.678, L100.0100, M100.2200, L500.4050 ####[facility] [address] [place], [address] Monocytes/100 WBC (Bld) 8.5 % Normal 0-10 [facility] Comment on above: Performed By: #### M 100.678, L100.0100, M100.2200, L500.4050 ####[facility] [address] [place], [address] Neutrophils/100 WBC (Bld) 69.7 % Normal 47-70 [facility] Comment on above: Performed By: #### M 100.678, L100.0100, M100.2200, L500.4050 ####[facility] [address] [place], [address] Nucleated RBC (Bld) [#/Vol] 0 10*3/uL Normal 0-5 [facility] Comment on above: Performed By: #### M 100.678, L100.0100, M100.2200, L500.4050 ####[facility] [address] [place], [address] Platelet mean volume (Bld) [Entitic vol] 10.9 fL Normal 6.2-12.0 [facility] Comment on above: Performed By: #### M 100.678, L100.0100, M100.2200, L500.4050 ####[facility] [address] [place], [address] Platelets (Bld) [#/Vol] 195 10*3/uL Normal 150-450 [facility] Comment on above: Performed By: #### M 100.678, L100.0100, M100.2200, L500.4050 ####[facility] [address] [place], [address] RBC (Bld) [#/Vol] 4.22 10*6/uL Normal 4.2-5.4 [facility] Comment on above: Performed By: #### M 100.678, L100.0100, M100.2200, L500.4050 ####[facility] [address] [place], [address] RDW SD 42.8 fl Normal 35.1-43.9 [facility] Comment on above: Performed By: #### M 100.678, L100.0100, M100.2200, L500.4050 ####[facility] [address] [place], [address] WBC (Bld) [#/Vol] 5.9 10*3/uL Normal 4.4-11.0 [facility] Comment on above: Performed By: #### M 100.678, L100.0100, M100.2200, L500.4050 ####[facility] [address] [place], [address] Carbon dioxide measurementOr dered By: Olivier Olmstead on 11-20-2024 CO2 [Moles/Vol] 22.0 mmol/L 21.0-32.0 [facility] Chloride measurementOrdered By: Olivier Olmstead on 11-20-2024 Chloride [Moles/Vol] 104 mmol/L 98-107 [facility] Comprehensive Metabolic Prof ilon 11-20-2024 Albumin [Mass/Vol] 3.1 g/dL Low 3.2-5.0 [facility] Comment on above: Performed By: #### M 100.678, L100.0100, M100.2200, L500.4050 ####[facility] [address] [place], [address] Albumin/Globulin [Mass ratio] 0.8 {ratio} Low 0.9-2.4 [facility] Comment on above: Performed By: #### M 100.678, L100.0100, M100.2200, L500.4050 ####[facility] [address] [place], [address] ALK P 142 U/L High 45-117 [facility] Comment on above: Performed By: #### M 100.678, L100.0100, M100.2200, L500.4050 ####[facility] [address] [place], [address] ALT [Catalytic activity/Vol] 28 U/L Normal 13-56 [facility] Comment on above: Performed By: #### M 100.678, L100.0100, M100.2200, L500.4050 ####[facility] [address] [place], [address] AST [Catalytic activity/Vol] 24 U/L Normal 15-37 [facility] Comment on above: Performed By: #### M 100.678, L100.0100, M100.2200, L500.4050 ####[facility] [address] [place], [address] Bilirubin [Mass/Vol] 1.30 mg/dL High 0.20-1.00 [facility] Comment on above: Result Comment: For patients on eltrombopag therapy, use of Dimension [facility] TBIL is not recommended. Performed By: #### M 100.678, L100.0100, M100.2200, L500.4050 ####[facility] [address] [place], [address] BUN/CRE 25.0 RATIO High 10-20 [facility] Comment on above: Performed By: #### M 100.678, L100.0100, M100.2200, L500.4050 ####[facility] [address] [place], [address] CA,Total 9.3 mg/dL Normal 8.5-10.1 [facility] Comment on above: Performed By: #### M 100.678, L100.0100, M100.2200, L500.4050 ####[facility] [address] [place], [address] Chloride [Moles/Vol] 104 mmol/L Normal 98-107 [facility] Comment on above: Performed By: #### M 100.678, L100.0100, M100.2200, L500.4050 ####[facility] [address] [place], [address] CO2 [Moles/Vol] 22.0 mmol/L Normal 21.0-32.0 [facility] Comment on above: Performed By: #### M 100.678, L100.0100, M100.2200, L500.4050 ####[facility] [address] [place], [address] Creatinine [Mass/Vol] 0.56 mg/dL Normal 0.55-1.02 [facility] Comment on above: Result Comment: The validity of the calculated GFR GFRAA in patients over 70 years has not been determined. Clinical correlation is essential. Performed By: #### M 100.678, L100.0100, M100.2200, L500.4050 ####[facility] [address] [place], [address] EST GFR - AA 135 mL/min Normal >60 [facility] Comment on above: Result Comment: Afri can Dutch GFR Calc Performed By: #### M 100.678, L100.0100, M100.2200, L500.4050 ####[facility] [address] [place], [address] GAP 9 Normal 5-15 [facility] Comment on above: Performed By: #### M 100.678, L100.0100, M100.2200, L500.4050 ####[facility] [address] [place], [address] GFR/1.73 sq M.predicted among non-blacks MDRD (S/P/Bld) [Vol rate/Area] 112 mL/min/{1.73_m2} Normal >60 [facility] Comment on above: Result Comment: Non- GFR Calc Performed By: #### M 100.678, L100.0100, M100.2200, L500.4050 ####[facility] [address] [place], [address] Globulin (S) [Mass/Vol] 3.7 g/dL Normal 2.2-4.2 [facility] Comment on above: Performed By: #### M 100.678, L100.0100, M100.2200, L500.4050 ####[facility] [address] [place], [address] Glucose [Mass/Vol] 97 mg/dL Normal 74-106 [facility] Comment on above: Performed By: #### M 100.678, L100.0100, M100.2200, L500.4050 ####[facility] [address] [place], [address] Potassium [Moles/Vol] 3.8 mmol/L Normal 3.5-5.1 [facility] Comment on above: Performed By: #### M 100.678, L100.0100, M100.2200, L500.4050 ####[facility] [address] [place], [address] Sodium [Moles/Vol] 135 mmol/L Low 136-145 [facility] Comment on above: Performed By: #### M 100.678, L100.0100, M100.2200, L500.4050 ####[facility] [address] [place], [address] T PROT 6.8 g/dL Normal 6.4-8.2 [facility] Comment on above: Performed By: #### M 100.678, L100.0100, M100.2200, L500.4050 ####[facility] [address] [place], [address] Urea nitrogen [Mass/Vol] 14 mg/dL Normal 7-18 [facility] Comment on above: Performed By: #### M 100.678, L100.0100, M100.2200, L500.4050 ####[facility] [address] [place], [address] Eosinophil percentageOrdered By: Olivier Olmstead on 11-20-2024 Eosinophils/100 WBC (Bld) 3.1 % 0-5 [facility] Erythrocyte distribution wid th ratioOrdered By: Olivier Olmstead on 11-20-2024 Erythrocyte distribution width (RBC) [Ratio] 12.3 % 11.6-14.6 [facility] Erythrocyte distribution wid th standard deviationOrdered By: Olivier Olmstead on 11-20-2024 Erythrocyte distribution width (RBC) [Entitic vol] 42.8 fL 35.1-43.9 [facility] Estimated glomerular filtrat ion rate (GFR) AmericanOrdered By: Olivier Olmstead on 11-20-2024 Estimated GFR (MDRD) Amer 135 mL/min >60 [facility] Comment on above: GFR Calc Glomerular filtration rate ( GFR) estimationOrdered By: Olivier Olmstead on 11-20-2024 Estimated GFR (MDRD) Non-Af Amer 112 mL/min >60 [facility] Comment on above: Non- GFR Calc Glucose measurementOrdered B y: Olivier Olmstead on 11-20-2024 Glucose [Mass/Vol] 97 mg/dL 74-106 [facility] Hematocrit Auto (Bld) [Volum e fraction]Ordered By: Olivier Olmstead 11-20-2024 Hematocrit (Bld) [Volume fraction] 40.1 % 37-47 [facility] Hemoglobin measurementOrdere d By: Olivier Olmstead on 11-20-2024 Hemoglobin (Bld) [Mass/Vol] 13.5 g/dL 12.0-15.0 [facility] Immature granulocytes/100 WB C Auto (Bld)Ordered By: Olivier Olmstead on 11-20-2024 Immature granulocytes/100 WBC (Bld) 0.500 % 0.0-0.9 [facility] Comment on above: IG% - Immature Granu locytes (promyelocytes, myelocytes and metamyelocytes) > 1% indicates that a LEFT SHIFT is Present. Influenza virus A and B and SARS-CoV-2 (COVID-19) and Respiratory syncytial virus RNAOrdered By: Olivier Olmstead on 11-20-2024 SARS-CoV-2 (COVID-19) RNA FLORENTIN+probe Ql (Unsp spec) [facility] Laboratory - Chemistry and C hemistry - challengeOrdered By: Olivier Olmstead on 11-20-2024 AST [Catalytic activity/Vol] 24 U/L 15-37 [facility] Lymphocytes Auto (Unsp spec) [#/Vol]Ordered By: Olivier Olmstead on 11-20-2024 Lymphocytes (Bld) [#/Vol] 1.04 10*3/uL 0.83-4.51 [facility] Lymphocytes/100 WBC Auto (Un sp spec)Ordered By: Olivier Olmstead on 11-20-2024 Lymphocytes/100 WBC (Bld) 17.7 % Low 19-41 [facility] M100.678on 11-20-2024 M100.678 Pending SARS-CoV-2 (COVID 19) Negative INFLUENZA A Negative INFLUENZA B Negative RSV PCR Negative Normal [facility] Comment on above: Performed By: #### M 100.678, L100.0100, M100.2200, L500.4050 ####[facility] [address] [place], [address] MCV (mean corpuscular volume ) determinationOrdered By: Olivier Olmstead on 11-20-2024 MCV (RBC) [Entitic vol] 95.0 fL 81-99 [facility] Mean corpuscular hemoglobin (MCH) determinationOrdered By: Olivier Olmstead on 11-20-2024 MCH (RBC) [Entitic mass] 32.0 pg 27.0-32.0 [facility] Mean corpuscular hemoglobin concentration (MCHC) determinationOrdered By: Olivier Olmstead on 11-20-2024 MCHC (RBC) [Mass/Vol] 33.7 g/dL 32-36 [facility] Mean platelet volume determi nationOrdered By: Olivier Olmstead on 11-20-2024 Platelet mean volume (Bld) [Entitic vol] 10.9 fL 6.2-12.0 [facility] Monocyte percentageOrdered B y: Olivier Olmstead on 11-20-2024 Monocytes/100 WBC (Bld) 8.5 % 0-10 [facility] Neutrophil percentageOrdered By: Olivier Olmstead on 11-20-2024 Neutrophils/100 WBC (Bld) 69.7 % 47-70 [facility] Nucleated red blood cell per centageOrdered By: Olivier Olmstead on 11-20-2024 Nucleated RBC/100 WBC (Bld) [Ratio] 0 % 0-5 [facility] Platelet countOrdered By: Dre Olmstead on 11-20-2024 Platelets (Bld) [#/Vol] 195 10*3/uL 150-450 [facility] Potassium measurementOrdered By: Olivier Olmstead on 11-20-2024 Potassium [Moles/Vol] 3.8 mmol/L 3.5-5.1 [facility] RBC Auto (Bld) [#/Vol]Ordere d By: Olivier Olmstead on 11-20-2024 RBC (Bld) [#/Vol] 4.22 10*6/uL 4.2-5.4 [facility] Serum anion gap measurementO rdered By: Olivier Olmstead on 11-20-2024 Anion gap [Moles/Vol] 9 mmol/L 5-15 [facility] Serum globulin measurementOr dered By: Olivier Olmstead 11-20-2024 Globulin (S) [Mass/Vol] 3.7 g/dL 2.2-4.2 [facility] Serum or plasma alanine condon otransferase (ALT) measurementOrdered By: Olivier Olmstead 11-20-2024 ALT [Catalytic activity/Vol] 28 U/L 13-56 [facility] Serum or plasma albumin hesham urement (mass/volume)Ordered By: Olivier Olmstead on 11-20-2024 Albumin [Mass/Vol] 3.1 g/dL Low 3.2-5.0 [facility] Serum or plasma alkaline alee sphatase measurementOrdered By: Olivier Olmstead on 11-20-2024 ALP [Catalytic activity/Vol] 142 U/L High 45-117 [facility] Serum or plasma calcium hesham urement (mass/volume)Ordered By: Olivier Olmstead on 11-20-2024 Calcium [Mass/Vol] 9.3 mg/dL 8.5-10.1 [facility] Serum or plasma creatinine m easurement (mass/volume)Ordered By: Olivier Olmstead on 11-20-2024 Creatinine [Mass/Vol] 0.56 mg/dL 0.55-1.02 [facility] Comment on above: The validity of the calculated GFR & GFRAA in patients over 70 years has not been determined. Clinical correlation is essential. Serum or plasma urea nitroge n measurement (mass/volume)Ordered By: Olivier Olmstead 11-20-2024 Urea nitrogen [Mass/Vol] 14 mg/dL 7-18 [facility] Sodium levelOrdered By: Olivier Olmstead 11-20-2024 Sodium [Moles/Vol] 135 mmol/L Low 136-145 [facility] Total proteinOrdered By: Olivier Olmstead 11-20-2024 Protein [Mass/Vol] 6.8 g/dL 6.4-8.2 [facility] Urine cultureOrdered By: Olivier Olmstead 11-20-2024 Bacteria identified Cx Nom (U) Escherichia coli Abnormal [facility] White blood cell (WBC) count Ordered By: Olivier Olmstead on 11-20-2024 WBC (Bld) [#/Vol] 5.9 10*3/uL 4.4-11.0 [facility] [facility] Inital Evaluation (1) - PTon 07-16-2024 Inital Evaluation (1) - PT [facility] [address] [place] [address] [address] [place] [address] / REHABILITATION SERVICES INITIAL EVALUATION MR#: [id number] Acct: [id number] Name: DONNA YATES Rep #: [id number] : 1950 73 From: Delores VELARDE Referring Dr.: Dr. Mark Wolff DO Status: R EG RCR Insurance: [employer] MEDICARE SELF PAY INSURANCE Patient's Visit Information Visit Information Visit Information: DONNA YATES is a 73 year old F referred to Physical Therapy by Dr. Mark Wolff DO with a diagnosis of DDD, L spondylosis, R hip tendonitis. Date of Evaluation: 07/16/24 Physical Therapist: PRACHI Salazar Visit Plan Frequency: 1x/Week Duration: 2 Months Plan: 1X/ week for 8 weeks for neutral spine core stability, hip and LE strength, postural exercises, gait training geared to HEP HEP: LTR, SKC, supine piriformis stretch (knee to opp shoulder), pelvic tilt Subjective Subjective: Pt has had back pain for a couple of years. She had COVID in April and about 10 days after she could not get up and had to use her walker and was afraid of falling. 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 Her Bone Density shows she is at a risk for serious hip fx and LB. She uses a rollator and uses it at nightly. If she is having a bad day she uses it and it is in her bedroom. She has had no falls in the last year. 1-2 steps in the house and has a geoscientist post to help pull herself up and some safety in the shower and stool. She has a walk in shower. She drives. She works from home and works 36-40 hours per week. She has no trouble rolling over in bed or getting out of bed. She can carry light groceries. She can not bend over at her knees due to past dislocated knees. Pain back pain: Pain Intensity (Out of 10): 8 Objective Objective: Gait: walks with a standard cane with shorter strides and flexed posture with hip hike. LE MMT: R hip flex 4/5 and L 4-/5 R knee ext B 4-/5 R knee flex B 4/5 supine hip abd 4-/5 B Pt had some increase discomfort with Bridge and did 1/2 normal ROM Pt had increase pain (antonio on the R) with Supine knee to opp shoulder Piriformis stretch and a little discomfort on the L Pt is able to do pelvic tilt without pain SLR.. increases pain and very weak Sit to stand: needs B hands to get up and out of a chair. Balance/Special Test Scores Oswestry Low Back Score: 19 Goals Goal 1:: I HEP Goal Time Frame: 6-8 Weeks Goal 2:: Be able to walk back to the treatment room with a straight cane with smoother gait pattern Goal Time Frame: 6-8 Weeks Goal 3:: Increase B hip abd strength to 4/5 Goal Time Frame: 6-8 Weeks Rehabilitation Potential Rehabilitation Potential: Good Anticipated Interventions Patient/Client Instruction: Educate patient on: Condition and Plan of Care For the Purpose of:: To decrease pain, To increase ROM, To improve nutrient delivery to tissue, To improve muscle performance and motor function, To improve ability to perform ADL's, To increase tolerance to activity/condition/posit ion, To improve performance and independence with ADL's, To decrease level of supervision to perform tasks, To improve ability of physical actions for home/community/work/leis ure, To improve gait and locomotor functions, To improve health of tissue, To increase flexibility/ROM, To improve balance and To improve safety with gait Therapeutic Exercise to Include: Strength training, Endurance training, Balance training, Postural training, Flexibilty training, Gait and locomotor training, Active ROM, Dynamic Lumbar Stabilization and Scapular Strength/Stabilization For the Purpose of:: To decrease pain, To increase ROM, To improve nutrient delivery to tissue, To improve muscle performance and motor function, To improve ability to perform ADL's, To increase tolerance to activity/condition/posit ion, To improve performance and independence with ADL's, To decrease level of supervision to perform tasks, To improve ability of physical actions for home/community/work/leis ure, To improve gait and locomotor functions, To improve health of tissue, To decrease soft tissue restriction, To increase flexibility/ROM, To improve balance and To improve safety with gait Functional Training to Include: Gait training For the Purpose of:: To improve gait and locomotor functions and To improve safety with gait Text: Thank you for the opportunity to evaluate your patient. For Medicare and Medicare HMO plans, please review the plan of care and approve it. It will need to be FAXED BACK to us at [phone] for Medicare purposes. For Medicare only, by signing this I certify the plan of care. Please let me know if there are questions or concerns regarding this plan of care. Physician Signature: Date: ____ (more content not included)... Normal [facility] Orthopedic Visit Reporton Orthopedic Visit Report [facility] [address] [place] [address] [address] [place] [address] OFFICE VISIT Date of Service: 07/07/24 MR#: [id number] Acct: [id number] Name: DONNA YATES Rep #: [id number] : 1950 Provider: Dr. Mark mora DO Age/Sex: 73/F Location: [facility] Status: Signed Intake Vital Signs 06/12/24 12:31 06/23/24 12:05 07/07/24 13:35 Height 5 ft 3 in 5 ft 3 in 5 ft 3 in Weight: 171 lb BMI 30.2 Intake Visit Reasons: RIGHT HIP Accompanied by: Self Is patient in pain?: Yes Pain scale (1-10): 7 Allergies prednisone Allergy (Intermediate, Verified 07/07/24 13:35) Rash adhesive Adverse Reaction (Verified 07/07/24 13:35) Rash Medications ???Medication ???Instructions ???Recorded ???Confirmed ???Type cyclobenzaprine 10 mg tablet 10 mg PO PRN PRN Pain Or Fever 09/13/22 07/07/24 History flecainide 100 mg tablet 100 mg PO BID HEART #180 tabs 07/24/23 07/07/24 Rx diltiazem HCl 120 mg 120 mg PO QDAY HEART #90 caps 07/27/23 07/07/24 Rx capsule,extended release 24 hr levothyroxine 112 mcg capsule 112 mcg PO DAILY 11/28/23 07/07/24 History levothyroxine 125 mcg tablet 125 mcg PO DAILY 11/28/23 07/07/24 History bisacodyl 5 mg tablet,delayed 5 mg PO QHS 01/03/24 07/07/24 History release (Dulcolax (bisacodyl)) romosozumab-aqqg 210 mg/2.34 210 mg subcut QMONTH 07/07/24 07/07/24 History mL(105 mg/1.17 mL x2)subcutaneous syringe (Evenity) Have you fallen in the past year?: Yes PFSH Medical History (Updated 07/07/24 @ 14:[address] Mark Wolff, ) Muscular dystrophy Paroxysmal atrial tachycardia Non-rheumatic mitral regurgitation Nonrheumatic mitral (valve) prolapse Paroxysmal atrial fibrillation History of kidney stones Left bundle branch block Vudnfff-Aqapi-Pwmug disease Hypotension Depression Surgical History History of lithotripsy ( 10/2017) Hx of cholecystectomy H/O: section H/O: hysterectomy Hx of knee surgery Hx of foot surgery History of tonsillectomy Family History (Updated 01/03/24 @ 09:33 by Linda Mensah) Mother Hypertension Breast cancer Brother Colon cancer Sister Hypertension Daughter CAD (coronary artery disease) Father Colon cancer Social History (Reviewed 11/28/23 @ 13:45 by Ophelia Diana LAW FIRM ADMINISTRATOR, LAW FIRM ADMINISTRATOR-C) Smoking Status: Former smoker how long ago did patient quit smokin years ago alcohol intake: current alcohol intake frequency: a few times a month caffeine: Yes Type: coffee Number of servings: 2 HPI RIGHT HIP Details: This documentation accurately reflects the service provided and the decisions made by me, Dr. Mark Wolff, 07/07/24 0829. Part of today???s visit was documented by Hillary GLASS, acting as scribe. DONNA YATES is a 73 year old F here today for Right hip pain. Patient states that it has been off and of for several years but the last 2 months it has been very bad. Patient has had a bone scan and MRI done by her PCP. The worst of her pain is actually over her sacroiliac area on the right side and right paraspinal musculature area. Occasionally she will get lateral sided hip pain and into the groin but not bad and often. Patient doesn't think she has ever had injections in her hip. Patient states ice and heat does help sometimes. Patient states sometimes it does spread to her left but mostly the right hip. 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 Ortho Exam General General: Yes no acute distress Neurologic: Yes alert and Yes oriented x3 Psychologic: Yes reasonable and appropriate Right Hip Skin: No Ecchymosis, No soft tissue swelling and No Erythema internal rotation @90 degree flexion: 30 degrees external rotation @90 degree extension: 45 degrees Impingement Test: 1 Special Tests: No IT band snap, No TTP Greater Troch, No RROM flexion pain, No C sign, No FADIR, No FADER and No Illiotibial band tenderness HIP: She points to and is tender to palpation in her right paraspinal musculature and right sacroiliac joint area she has no significant tenderness over her trochanteric bursa or gluteal abductor muscle. 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 Atrophy of the tensor fascia latae. No fracture or avascular necrosis. Prior hysterectomy. Left pelvic cyst. Cystocele of the urinary bladder. 06/02/2024 x-ray right hip: Read as likely atypical stress reactive changes of the infra (more content not included)... Normal [facility] Lower Ext Joint Only (Routin e)on 06-19-2024 Lower Ext Joint Only (Routine) [facility] Imaging Services [address] [place], [place] [id number] Lower Ext Joint Only (Routine) MR#: [id number] Acct: [id number] Name: DONNA YATES Rep #: [id number] : 1950 F 73 From: Jayson Aguila MD PCP: Dr. Olivier Olmstead MD Status: REG CLI Study: Lower Ext Joint Only (Routine) Date of Exam: 0 06/19/24 Exam# [id number] Ordering Dr: Olivier Olmstead MD [id number] STUDY: MRI RIGHT HIP REASON FOR EXAM: Female, 73 years old. RIGHT HIP PAIN X 2 WEEKS TECHNIQUE: Standardized fat and water weighted pulse sequences were obtained in all 3 orthogonal planes. COMPARISON: X-ray June 02, 2024 FINDINGS: Normal hip joint without articular joint space narrowing. Normal acetabulum. Normal labrum. Normal femoral head. Normal femoral neck and intratrochanteric region. There is no demonstrated fracture. There is lumbar levoscoliosis with degenerative changes visualized spine. There is tendinosis of the gluteus minimus and medius. Normal iliopsoas tendon and distal insertion. There is atrophy and fatty infiltration of the tensor fascia latae. There is mild edema at the trochanteric bursa. No iliopsoas or iliopectineal bursitis. Normal superior and inferior pubic rami. Normal pubic symphysis. Normal ischial tuberosity. Normal origin of the hamstring tendons. Normal visualized iliac wing, sacroiliac joint, and sacral ala. Normal visualized soft tissue structures of the pelvis. There is prior hysterectomy. There is 3.9 cm left pelvic cyst. There is cystocele of the urinary bladder. 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 Atrophy of the tensor fascia latae. No fracture or avascular necrosis. Prior hysterectomy. Left pelvic cyst. Cystocele of the urinary bladder. Electronically Signed: Jayson Aguila MD at 18:18 EDT , CC: Dr. Olivier Olmstead MD Garbage Collector: Signed Normal [facility] Dexa Bone Density Studyon Dexa Bone Density Study [facility] Imaging [address] [address] Dexa Bone Density Study MR#: [id number] Acct: [id number] Name: DONNA YATES Rep #: [id number] : 1950 F 73 From: Kale locke MD PCP: Dr. Olivier Olmstead MD Status: [facility] Study: Dexa Bone Density Study Date of Exam: 06/12/24 Exam# [id number] Ordering Dr: Olivier Olmstead MD [id number] STUDY: DUAL ENERGY X-RAY ABSORPTIOMETRY / DXA REASON FOR EXAM: Female, 73 years old. Z780 TECHNIQUE: Bone Mineral Density (BMD) measurements of lumbar spine and bilateral hips were obtained. COMPARISON: Comparison is made with prior study dated March 14, 2018. FINDINGS: Lumbar Spine (L1-L4): g/cm2 (0.734) / T-score (-3.3) / Z-score (-0.7) Findings are suggestive of osteoporosis with a high fracture risk. Left Femur Total: g/cm2 (0.640) / T-score (-2.5) / Z-score (-0.6) Left Femoral Neck: g/cm2 (0.528) / T-score (-2.9) / Z-score (-0.8) Right Femur Total: g/cm2 (0.645) / T-score (-2.4) / Z-score (-0.6) Right Femoral Neck: g/cm2 (0.534) / T-score (-2.8) / Z-score (-0.7) The T-Scores on the most recent prior examination were: Lumbar Spine (L1-L4): There has been worsening of bone density since the previous examination. Left Femur Total: which represents a worsening of 5.2%. Right Femur Total: which represents a worsening of 3.1%. BD/Dexa Bone Density Study IMPRESSION: The patient is considered osteoporotic as outlined below according to World Tavon Organization (WHO) criteria with a high fracture risk. There has been worsening of [...] 1. NIH Osteoporosis and Related Bone Diseases www osteo.org 2. International Society for Clinical Densitometry www iscd.org 3. National Osteoporosis Foundation www nof.org Electronically Signed: Kale Peralta MD at 13:23 EDT Reading Location ID and State: [facility] / [place] , Service support , CC: Dr. Olivier Olmstead MD Garbage Collector: Signed Normal [facility] HIP, UNI W/ Pelvis 2-3 Views on 06-02-2024 HIP, UNI W/ Pelvis 2-3 Views [facility] Imaging Services [address] [place], [place] [address] HIP, UNI W/ Pelvis 2-3 Views MR#: [id number] Acct: [id number] Name: DONNA YATES Rep #: [id number] : 1950 F 73 From: Jose jefferson DO PCP: Dr. Olivier Olmstead MD Status: REG CLI Study: HIP, UNI W/ Pelvis 2-3 Views Date of Exam: 03/21 Exam# [id number] Ordering Dr: Olivier Olmstead MD [id number] EXAM: XR RIGHT HIP WITH PELVIS WHEN PERFORMED, 2 OR 3 VIEWS CLINICAL INDICATION: RIGHT HIP PAIN TECHNIQUE: Two or three views of the right hip with pelvis when performed. COMPARISON: MRI pelvis, 01/16/2024 FINDINGS: BONES/JOINTS: Degenerative changes in the lower lumbar spine and SI joints. Subtle intertrochanteric cortical thickening along the medial aspect of the femur and peripheral cortical lucency bilaterally. No displaced fracture. No widening of the pubic symphysis. SOFT TISSUES: No significant abnormality. No soft tissue swelling or gas. RAD/HIP, UNI W/ Pelvis 2-3 Views IMPRESSION: Likely atypical stress reactive changes of the infra trochanteric femora bilaterally. Risk for complete fracture. Correlate clinically for bisphosphonate therapy. Electronically Signed: Jose Dowd DO at 20:35 EDT , CC: Dr. Olivier Olmstead MD Garbage Collector: Signed Normal [facility] L/S Spine Min 4 Viewson 08-0 L/S Spine Min 4 Views [facility] Imaging Services [address] [place] [id number] L/S Spine Min 4 Views MR#: [id number] Acct: [id number] Name: DONNA YATES Rep #: [id number] : 1950 F 73 From: Lucho hdz MD PCP: Dr. Olivier Olmstead MD Status: REG CLI Study: L/S Spine Min 4 Views Date of Exam: 06/02/24 Exam# [id number] Ordering Dr: Olivier Olmstead MD [id number] INDICATION: LOW BACK PAIN EXAMINATION/TECHNIQUE: X-RAY - XR Spine Lumbar Min 4 Views COMPARISON: 03/01/2022. FINDINGS: VERTEBRAE: Preserved vertebral body height. No fracture. No spondylolisthesis. Preservation of the normal lumbar lordosis. Severe multilevel facet arthropathy. DISCS: Severe multilevel degenerative disc disease and spondylosis. INCLUDED ABDOMEN: Included bowel gas pattern is non-obstructive. RAD/L/S Spine Min 4 Views IMPRESSION: No evidence of lumbar spinal fracture or spondylolisthesis. Severe multilevel degenerative disc disease and spondylosis. Electronically Signed: Lucho Corbin MD at 20:08 EDT , CC: Dr. Olivier Olmstead MD Garbage Collector: Signed Normal [facility] Clostridioides difficile nuc leic acid assay by PCROrdered By: Olivier Olmstead on 12-24-2023 C. difficile DNA FLORENTIN+probe Ql (Unsp spec) [facility] Lower GI hemoglobin IA Ql (S tl)Ordered By: Olivier Olmstead on 12-24-2023 Stool Occult Blood (MADALYN) Positive [facility] No Panel InformationOrdered By: Olivier Olmstead on 12-24-2023 Miscellaneous Test See comment [facility] Comment on above: SALMONELLA/SHIGELLA SCREEN FINAL REPORTRESULT 1 NO SALMONELLA OR SHIGELLA RECOVEREDCAMPYLOBACTER CULTURE FINAL REPORTRESULT 1 NO CAMPYLOBACTER SPECIES ISOLATEDE COLI SHIGA TOXIN EIA NEGATIVE ___ TESTING PERFORMED AT [facility]. ORIGINAL REPORT ON FILE IN LAB CONTAINS ADDITIONAL TEST SITE INFORMATION. Ova and parasitesOrdered By: Olivier Olmstead on 12-24-2023 Ova and parasites identified LM Nom (Unsp spec) [facility] Stool lactoferrin detection by immunoassayOrdered By: Olivier Olmstead on 12-24-2023 Lactoferrin IA Ql (Stl) [facility] Absolute lymphocyte countOrd ered By: Olivier Olmstead on 12-20-2023 Lymphocytes Auto (Unsp spec) [#/Vol] 1.67 10*3/uL 0.83-4.51 [facility] Automated lymphocyte count a s percentage of total leukocytesOrdered By: Olivier Olmstead on 12-20-2023 Lymphocytes/100 WBC Auto (Unsp spec) 32.2 % 19-41 [facility] Basophil percentageOrdered B y: Olivier Olmstead on 12-20-2023 Basophil percentage < 1.0 mg/dL 0.55-1.02 [facility] Basophils/100 WBC (Bld) 0.4 % 0-1 [facility] Bilirubin [Mass/Vol] 1.00 mg/dL 0.20-1.00 [facility] Comment on above: For patients on eltr ombopag therapy, use of [facility] TBIL is not recommended. Chloride [Moles/Vol] 112 mmol/L 98-107 [facility] Eosinophils/100 WBC (Bld) 3.3 % 0-5 [facility] Glucose [Mass/Vol] 103 mg/dL 74-106 [facility] Comment on above: Fasting Glucose resu lt from 100 to 125 mg/dL suggests IMPAIRED HOMEOSTASIS per A.D.A. criteria. Hemoglobin (Bld) [Mass/Vol] 13.4 g/dL 12.0-15.0 [facility] Monocytes/100 WBC (Bld) 6.4 % 0-10 [facility] Neutrophils (Bld) [#/Vol] 3.0 10*3/uL 2.0-7.7 [facility] Neutrophils/100 WBC (Bld) 57.3 % 47-70 [facility] Potassium [Moles/Vol] 3.8 mmol/L 3.5-5.1 [facility] Protein [Mass/Vol] 6.8 g/dL 6.4-8.2 [facility] Sodium [Moles/Vol] 139 mmol/L 136-145 [facility] WBC (Bld) [#/Vol] 5.2 10*3/uL 4.4-11.0 [facility] Determination of erythrocyte mean corpuscular volume (MCV)Ordered By: Olivier Ishan on 12-20-2023 MCV (RBC) [Entitic vol] 95.3 fL 81-99 [facility] Erythrocyte distribution wid th ratioOrdered By: [facility] on 12-20-2023 Erythrocyte distribution width (RBC) [Ratio] 12.8 % 11.6-14.6 [facility] Erythrocyte distribution wid th standard deviationOrdered By: [facility] on 12-20-2023 Erythrocyte distribution width (RBC) [Entitic vol] 44.7 fL 35.1-43.9 [facility] Hematocrit Auto (Bld) [Volum e fraction]Ordered By: [facility] 12-20-2023 Hematocrit (Bld) [Volume fraction] 40.7 % 37-47 [facility] Immature granulocytes/100 WB C Auto (Bld)Ordered By: [facility] 12-20-2023 Immature granulocytes/100 WBC (Bld) 0.400 % 0.0-0.9 [facility] Comment on above: IG% - Immature Granu locytes (promyelocytes, myelocytes and metamyelocytes) > 1% indicates that a LEFT SHIFT is Present. Laboratory - Chemistry and C hemistry - challengeOrdered By: Olivier Ishan 12-20-2023 GFR/1.73 sq M.predicted among non-blacks MDRD (S/P/Bld) [Vol rate/Area] 57.0000 mL/min/{1.73_m2} >60 [facility] Albumin/Globulin [Mass ratio] 1.1 {ratio} 0.9-2.4 [facility] ALP [Catalytic activity/Vol] 147 U/L 45-117 [facility] ALT [Catalytic activity/Vol] 47 U/L 13-56 [facility] CO2 [Moles/Vol] 24.0 mmol/L 21.0-32.0 [facility] Globulin (S) [Mass/Vol] 3.3 g/dL 2.2-4.2 [facility] Urea nitrogen/Creatinine [Mass ratio] 35.1 mg/mg 10-20 [facility] Laboratory - Hematology and Cell countsOrdered By: Olivier Olmstead on 12-20-2023 MCH (RBC) [Entitic mass] 31.4 pg 27.0-32.0 [facility] MCHC (RBC) [Mass/Vol] 32.9 g/dL 32-36 [facility] Nucleated RBC/100 WBC (Bld) [Ratio] 0 % 0-5 [facility] Platelet mean volume (Bld) [Entitic vol] 10.6 fL 6.2-12.0 [facility] Platelets (Bld) [#/Vol] 235 10*3/uL 150-450 [facility] No Panel InformationOrdered By: Olivier Olmstead on 12-20-2023 Estimated GFR (MDRD) Amer 108 mL/min >60 [facility] Comment on above: GFR Calc Estimated GFR (MDRD) Non-Af Amer 89 mL/min >60 [facility] Comment on above: Non- GFR Calc RBC Auto (Bld) [#/Vol]Ordere d By: Olivier Olmstead on 12-20-2023 RBC (Bld) [#/Vol] 4.27 10*6/uL 4.2-5.4 [facility] Serum or plasma calcium hesham urement (mass/volume)Ordered By: Olivier Olmstead on 12-20-2023 Calcium [Mass/Vol] 9.4 mg/dL 8.5-10.1 [facility] Serum or plasma creatinine m easurement (mass/volume)Ordered By: Olivier Olmstead on 12-20-2023 Creatinine [Mass/Vol] 0.68 mg/dL 0.55-1.02 [facility] Comment on above: The validity of the calculated GFR & GFRAA in patients over 70 years has not been determined. Clinical correlation is essential. Serum or plasma urea nitroge n measurement (mass/volume)Ordered By: Olivier Olmstead on 12-20-2023 Urea nitrogen [Mass/Vol] 24 mg/dL 7-18 [facility] Thin prep Papanicolaou smear with manual screeningOrdered By: Olivier Olmstead on 12-20-2023 Thin prep Papanicolaou smear with manual screening 3.5 g/dL 3.2-5.0 [facility] Thin prep Papanicolaou smear with manual screening 40 U/L 15-37 [facility] Thin prep Papanicolaou smear with manual screening 3 5-15 [facility] Absolute lymphocyte countOrd ered By: Olivier Olmstead on 11-05-2023 Lymphocytes Auto (Unsp spec) [#/Vol] 1.74 10*3/uL 0.83-4.51 [facility] Basophil percentageOrdered B y: Olivier Olmstead on 11-05-2023 Basophils/100 WBC (Bld) 0.4 % 0-1 [facility] Bilirubin [Mass/Vol] 0.60 mg/dL 0.20-1.00 [facility] Comment on above: For patients on eltr ombopag therapy, use of [facility] TBIL is not recommended. Chloride [Moles/Vol] 111 mmol/L 98-107 [facility] Eosinophils/100 WBC (Bld) 3.9 % 0-5 [facility] Glucose [Mass/Vol] 98 mg/dL 74-106 [facility] Neutrophils (Bld) [#/Vol] 3.0 10*3/uL 2.0-7.7 [facility] Neutrophils/100 WBC (Bld) 55.6 % 47-70 [facility] Potassium [Moles/Vol] 4.0 mmol/L 3.5-5.1 [facility] Protein [Mass/Vol] 7.0 g/dL 6.4-8.2 [facility] Sodium [Moles/Vol] 141 mmol/L 136-145 [facility] WBC (Bld) [#/Vol] 5.4 10*3/uL 4.4-11.0 [facility] Blood erythrocytes count (nu mber/volume)Ordered By: Olivier Olmstead on 11-05-2023 RBC (Bld) [#/Vol] 4.42 10*6/uL 4.2-5.4 [facility] Blood hemoglobin measurement (mass/volume)Ordered By: Olivier Olmstead on 11-05-2023 Hemoglobin (Bld) [Mass/Vol] 13.7 g/dL 12.0-15.0 [facility] Blood lymphocytes/100 leukoc ytesOrdered By: [facility] 11-[facility]23 Lymphocytes/100 WBC (Bld) 32.3 % 19-41 [facility] Blood monocytes/100 leukocyt esOrdered By: [facility] on 11-05-2023 Monocytes/100 WBC (Bld) 7.6 % 0-10 [facility] Blood platelet mean volumeOr dered By: [facility] on 11-05-2023 Platelet mean volume (Bld) [Entitic vol] 11.2 fL 6.2-12.0 [facility] Determination of erythrocyte mean corpuscular volume (MCV)Ordered By: [facility] on 11-05-2023 MCV (RBC) [Entitic vol] 96.2 fL 81-99 [facility] Hematocrit Auto (Bld) [Volum e fraction][facility]: [facility] Hematocrit (Bld) [Volume fraction] 42.5 % 37-47 [facility] - Chemistry and C hemistry - challengeOrdered By: [facility] on 11-05-2023 ALP [Catalytic activity/Vol] 141 U/L 45-117 [facility] ALT [Catalytic activity/Vol] 43 U/L 13-56 [facility] CO2 [Moles/Vol] 24.0 mmol/L 21.0-32.0 [facility] Globulin (S) [Mass/Vol] 3.4 g/dL 2.2-4.2 [facility] Urea nitrogen/Creatinine [Mass ratio] 24.9 mg/mg 10-20 [facility] - Hematology and Cell countsOrdered By: [facility] on 11-05-2023 Erythrocyte distribution width (RBC) [Entitic vol] 45.7 fL 35.1-43.9 [facility] Erythrocyte distribution width (RBC) [Ratio] 12.8 % 11.6-14.6 [facility] Immature granulocytes/100 WBC (Bld) 0.200 % 0.0-0.9 [facility] Comment on above: IG% - Immature Granu locytes (promyelocytes, myelocytes and metamyelocytes) > 1% indicates that a LEFT SHIFT is Present. MCH (RBC) [Entitic mass] 31.0 pg 27.0-32.0 [facility] Nucleated RBC/100 WBC (Bld) [Ratio] 0 % 0-5 [facility] Auto (RBC) [Mass/Vol]Or dered By: Olivier Olmstead on 11-05-2023 MCHC (RBC) [Mass/Vol] 32.2 g/dL 32-36 [facility] No Panel InformationOrdered By: Olivier Olmstead on 11-05-2023 Estimated GFR (MDRD) Amer 108 mL/min >60 [facility] Comment on above: GFR Calc Estimated GFR (MDRD) Non-Af Amer 89 mL/min >60 [facility] Comment on above: Non- GFR Calc Thyroid Stimulating Hormone (TSH) 0.56 uIU/mL 0.358-3.74 [facility] Vitamin D 25-Hydroxy 48.9 ng/mL [facility] Comment on above: Vitamin D 25(OH) Sta tus Range Deficiency <20 ng/mL (50nmol/L) Insufficiency 20 - 30 ng/mL (50 - 75 nmol/L) Sufficiency 30 - 100 ng/mL (75 - 250 nmol/L) Toxicity >100 ng/mL (>250 nmol/L) Platelets bldOrdered By: Olivier Olmstead on 11-05-2023 Platelets (Bld) [#/Vol] 231 10*3/uL 150-450 [facility] Serum or plasma albumin hesham urement (mass/volume)Ordered By: Olivier Olmstead on 11-05-2023 Albumin [Mass/Vol] 3.6 g/dL 3.2-5.0 [facility] Serum or plasma albumin/glob ulin mass ratioOrdered By: Olivier Olmstead on 11-05-2023 Albumin/Globulin [Mass ratio] 1.1 {ratio} 0.9-2.4 [facility] Serum or plasma calcium hesham urement (mass/volume)Ordered By: Olivier Olmstead on 11-05-2023 Calcium [Mass/Vol] 9.1 mg/dL 8.5-10.1 [facility] Serum or plasma creatinine m easurement (mass/volume)Ordered By: Olivier Olmstead on 11-05-2023 Creatinine [Mass/Vol] 0.68 mg/dL 0.55-1.02 [facility] Comment on above: The validity of the calculated GFR & GFRAA in patients over 70 years has not been determined. Clinical correlation is essential. Serum or plasma urea nitroge n measurement (mass/volume)Ordered By: Olivier Olmstead on 11-05-2023 Urea nitrogen [Mass/Vol] 17 mg/dL 7-18 [facility] Thin prep Papanicolaou smear with manual screeningOrdered By: Olivier Olmstead on 11-05-2023 Thin prep Papanicolaou smear with manual screening 37 U/L 15-37 [facility] Thin prep Papanicolaou smear with manual screening 6 5-15 [facility] Absolute lymphocyte countOrd ered By: Olivier Olmstead on 05-09-2023 Lymphocytes Auto (Unsp spec) [#/Vol] 2.32 10*3/uL 0.83-4.51 [facility] Basophil percentageOrdered B y: Olivier Olmstead on 05-09-2023 Basophils/100 WBC (Bld) 0.6 % 0-1 [facility] Bilirubin [Mass/Vol] 0.80 mg/dL 0.20-1.00 [facility] Comment on above: For patients on eltr ombopag therapy, use of [facility] TBIL is not recommended. Chloride [Moles/Vol] 106 mmol/L 98-107 [facility] Eosinophils/100 WBC (Bld) 3.6 % 0-5 [facility] Glucose [Mass/Vol] 88 mg/dL 74-106 [facility] Neutrophils (Bld) [#/Vol] 3.4 10*3/uL 2.0-7.7 [facility] Neutrophils/100 WBC (Bld) 52.9 % 47-70 [facility] Potassium [Moles/Vol] 4.0 mmol/L 3.5-5.1 [facility] Protein [Mass/Vol] 6.8 g/dL 6.4-8.2 [facility] Sodium [Moles/Vol] 139 mmol/L 136-145 [facility] WBC (Bld) [#/Vol] 6.4 10*3/uL 4.4-11.0 [facility] Blood erythrocytes count (nu mber/volume)Ordered By: Olivier Olmstead on 05-09-2023 RBC (Bld) [#/Vol] 4.53 10*6/uL 4.2-5.4 [facility] Blood hemoglobin measurement (mass/volume)Ordered By: Olivier Olmstead on 05-09-2023 Hemoglobin (Bld) [Mass/Vol] 14.3 g/dL 12.0-15.0 [facility] Blood lymphocytes/100 leukoc ytesOrdered By: Olivier Olmstead on 05-09-2023 Lymphocytes/100 WBC (Bld) 36.1 % 19-41 [facility] Blood monocytes/100 leukocyt esOrdered By: Olivier Olmstead on 05-09-2023 Monocytes/100 WBC (Bld) 6.5 % 0-10 [facility] Blood platelet mean volumeOr dered By: Olivier Olmstead on 05-09-2023 Platelet mean volume (Bld) [Entitic vol] 11.1 fL 6.2-12.0 [facility] Determination of erythrocyte mean corpuscular volume (MCV)Ordered By: Olivier Olmstead on 05-09-2023 MCV (RBC) [Entitic vol] 96.5 fL 81-99 [facility] Hematocrit Auto (Bld) [Volum e fraction][facility]: [facility] 05-[facility]23 Hematocrit (Bld) [Volume fraction] 43.7 % 37-47 [facility] - Chemistry and C hemistry - challengeOrdered By: Olivier Olmstead on 05-09-2023 ALP [Catalytic activity/Vol] 146 U/L 45-117 [facility] ALT [Catalytic activity/Vol] 38 U/L 13-56 [facility] CO2 [Moles/Vol] 26.0 mmol/L 21.0-32.0 [facility] Globulin (S) [Mass/Vol] 3.2 g/dL 2.2-4.2 [facility] Urea nitrogen/Creatinine [Mass ratio] 28.6 mg/mg 10-20 [facility] - Hematology and Cell countsOrdered By: Olivier Olmstead on 05-09-2023 Erythrocyte distribution width (RBC) [Entitic vol] 46.5 fL 35.1-43.9 [facility] Erythrocyte distribution width (RBC) [Ratio] 13.1 % 11.6-14.6 [facility] Immature granulocytes/100 WBC (Bld) 0.300 % 0.0-0.9 [facility] Comment on above: IG% - Immature Granu locytes (promyelocytes, myelocytes and metamyelocytes) > 1% indicates that a LEFT SHIFT is Present. MCH (RBC) [Entitic mass] 31.6 pg 27.0-32.0 [facility] Nucleated RBC/100 WBC (Bld) [Ratio] 0 % 0-5 [facility] MCHC Auto (RBC) [Mass/Vol]Or dered By: Olivier Olmstead on 05-09-2023 MCHC (RBC) [Mass/Vol] 32.7 g/dL 32-36 [facility] No Panel InformationOrdered By: Oliiver Olmstead on 05-09-2023 Estimated GFR (MDRD) Amer 99 mL/min >60 [facility] Comment on above: GFR Calc Estimated GFR (MDRD) Non-Af Amer 82 mL/min >60 [facility] Comment on above: Non- GFR Calc Thyroid Stimulating Hormone (TSH) 1.19 uIU/mL 0.358-3.74 [facility] Vitamin D 25-Hydroxy 45.4 ng/mL [facility] Comment on above: Vitamin D 25(OH) Sta tus Range Deficiency <20 ng/mL (50nmol/L) Insufficiency 20 - 30 ng/mL (50 - 75 nmol/L) Sufficiency 30 - 100 ng/mL (75 - 250 nmol/L) Toxicity >100 ng/mL (>250 nmol/L) Platelets bldOrdered By: Olivier Olmstead on 05-09-2023 Platelets (Bld) [#/Vol] 276 10*3/uL 150-450 [facility] Serum or plasma albumin hesham urement (mass/volume)Ordered By: Olivier Olmstead on 05-09-2023 Albumin [Mass/Vol] 3.6 g/dL 3.2-5.0 [facility] Serum or plasma albumin/glob ulin mass ratioOrdered By: Olivier Olmstead on 05-09-2023 Albumin/Globulin [Mass ratio] 1.1 {ratio} 0.9-2.4 [facility] Serum or plasma calcium hesham urement (mass/volume)Ordered By: Olivier Olmstead on 05-09-2023 Calcium [Mass/Vol] 9.2 mg/dL 8.5-10.1 [facility] Serum or plasma creatinine m easurement (mass/volume)Ordered By: Olivier Olmstead on 05-09-2023 Creatinine [Mass/Vol] 0.73 mg/dL 0.55-1.02 [facility] Comment on above: The validity of the calculated GFR & GFRAA in patients over 70 years has not been determined. Clinical correlation is essential. Serum or plasma urea nitroge n measurement (mass/volume)Ordered By: Olivier Olmstead on 05-09-2023 Urea nitrogen [Mass/Vol] 21 mg/dL 7-18 [facility] Thin prep Papanicolaou smear with manual screeningOrdered By: Olivier Olmstead on 05-09-2023 Thin prep Papanicolaou smear with manual screening 23 U/L 15-37 [facility] Thin prep Papanicolaou smear with manual screening 7 5-15 [facility] COVID-19 virus antigen assay Ordered By: Olivier Olmstead on 05-02-2023 SARS-CoV-2 (COVID-19) Ag IA.rapid Ql (Resp) Not detected Not Detect [facility] Comment on above: Normal Reference Ran ge: Not DetectedMethod:(RT-PCR) real-time reverse transcriptase PCRLuminex JULIO C Instrument*The Food and Drug Administration (FDA) has issued an Emergency Use Authorization (EAU) for the JULIO C SARS-CoV-2 Assay for the rapid detection of the virus that causes COVID-19. This test has been validated, but the FDAs independent review of this validation is pending.*Negative results do not preclude infection and should not be used as the sole basis for treatment or patient management. Optimum specimen types and timing for peak viral levels during infections caused by SARS-CoV-2 have not been determined. Collection of multiple specimens from the same patient may be necessary to detect the virus. The possibility of a false negative result should be considered if the patient has clinical presentation or has had recent exposure. No Panel InformationOrdered By: Olivier Olmstead on 05-02-2023 Influenza Types A,B Direct FA (MADALYN) [facility] RSV Ag EIAOrdered By: Olivier shin on 05-02-2023 RSV Ag Immune stain Ql (Tiss) [facility] Absolute lymphocyte countOrd ered By: Olivier Olmstead on 11-02-2022 Lymphocytes Auto (Unsp spec) [#/Vol] 1.68 10*3/uL 0.83-4.51 [facility] Basophil percentageOrdered B y: Olivier Olmstead on 11-02-2022 Basophils/100 WBC (Bld) 0.4 % 0-1 [facility] Bilirubin [Mass/Vol] 0.60 mg/dL 0.20-1.00 [facility] Comment on above: For patients on eltr ombopag therapy, use of [facility] TBIL is not recommended. Chloride [Moles/Vol] 106 mmol/L 98-107 [facility] Eosinophils/100 WBC (Bld) 3.0 % 0-5 [facility] Glucose [Mass/Vol] 81 mg/dL 74-106 [facility] Neutrophils (Bld) [#/Vol] 3.0 10*3/uL 2.0-7.7 [facility] Neutrophils/100 WBC (Bld) 57.0 % 47-70 [facility] Potassium [Moles/Vol] 3.9 mmol/L 3.5-5.1 [facility] Protein [Mass/Vol] 6.9 g/dL 6.4-8.2 [facility] Sodium [Moles/Vol] 140 mmol/L 136-145 [facility] WBC (Bld) [#/Vol] 5.3 10*3/uL 4.4-11.0 [facility] Blood erythrocytes count (nu mber/volume)Ordered By: Olivier Olmstead on 11-02-2022 RBC (Bld) [#/Vol] 4.49 10*6/uL 4.2-5.4 [facility] Blood hemoglobin measurement (mass/volume)Ordered By: Olivier Olmstead on 11-02-2022 Hemoglobin (Bld) [Mass/Vol] 14.3 g/dL 12.0-15.0 [facility] Blood lymphocytes/100 leukoc ytesOrdered By: Olivier Olmstead on 11-02-2022 Lymphocytes/100 WBC (Bld) 31.8 % 19-41 [facility] Blood monocytes/100 leukocyt esOrdered By: Olivier Olmstead on 11-02-2022 Monocytes/100 WBC (Bld) 7.4 % 0-10 [facility] Blood platelet mean volumeOr dered By: Olivier Olmstead on 11-02-2022 Platelet mean volume (Bld) [Entitic vol] 10.9 fL 6.2-12.0 [facility] Determination of erythrocyte mean corpuscular volume (MCV)Ordered By: Olivier Olmstead on 11-02-2022 MCV (RBC) [Entitic vol] 98.9 fL 81-99 [facility] Hematocrit Auto (Bld) [Volum e fraction]Ordered By: Olivier Olmstead on 11-02-2022 Hematocrit (Bld) [Volume fraction] 44.4 % 37-47 [facility] - Chemistry and C hemistry - challengeOrdered By: [facility] ALP [Catalytic activity/Vol] 117 U/L 45-117 [facility] ALT [Catalytic activity/Vol] 44 U/L 13-56 [facility] CO2 [Moles/Vol] 27.0 mmol/L 21.0-32.0 [facility] Globulin (S) [Mass/Vol] 3.3 g/dL 2.2-4.2 [facility] Urea nitrogen/Creatinine [Mass ratio] 16.3 mg/mg 10-20 [facility] - Hematology and Cell countsOrdered By: [facility]an on 11-02-2022 Erythrocyte distribution width (RBC) [Entitic vol] 45.7 fL 35.1-43.9 [facility] Erythrocyte distribution width (RBC) [Ratio] 12.6 % 11.6-14.6 [facility] Immature granulocytes/100 WBC (Bld) 0.400 % 0.0-0.9 [facility] Comment on above: IG% - Immature Granu locytes (promyelocytes, myelocytes and metamyelocytes) > 1% indicates that a LEFT SHIFT is Present. MCH (RBC) [Entitic mass] 31.8 pg 27.0-32.0 [facility] Nucleated RBC/100 WBC (Bld) [Ratio] 0 % 0-5 [facility] MCHC Auto (RBC) [Mass/Vol]Or dered By: Olivier Olmstead on 11-02-2022 MCHC (RBC) [Mass/Vol] 32.2 g/dL 32-36 [facility] No Panel InformationOrdered By: Olivier Olmstead on 11-02-2022 Estimated GFR (MDRD) Amer 90 mL/min >60 [facility] Comment on above: GFR Calc Estimated GFR (MDRD) Non-Af Amer 75 mL/min >60 [facility] Comment on above: Non- GFR Calc Thyroid Stimulating Hormone (TSH) 0.43 uIU/mL 0.358-3.74 [facility] Vitamin D 25-Hydroxy 43.0 ng/mL [facility] Comment on above: Vitamin D 25(OH) Sta tus Range Deficiency <20 ng/mL (50nmol/L) Insufficiency 20 - 30 ng/mL (50 - 75 nmol/L) Sufficiency 30 - 100 ng/mL (75 - 250 nmol/L) Toxicity >100 ng/mL (>250 nmol/L) Platelets bldOrdered By: Olivier Olmstead on 11-02-2022 Platelets (Bld) [#/Vol] 273 10*3/uL 150-450 [facility] Serum or plasma albumin hesham urement (mass/volume)Ordered By: Olivier Olmstead on 11-02-2022 Albumin [Mass/Vol] 3.6 g/dL 3.2-5.0 [facility] Serum or plasma albumin/glob ulin mass ratioOrdered By: Olivier Olmstead on 11-02-2022 Albumin/Globulin [Mass ratio] 1.1 {ratio} 0.9-2.4 [facility] Serum or plasma calcium hesham urement (mass/volume)Ordered By: Olivier Olmstead on 11-02-2022 Calcium [Mass/Vol] 9.2 mg/dL 8.5-10.1 [facility] Serum or plasma creatinine m easurement (mass/volume)Ordered By: Olivier Olmstead on 11-02-2022 Creatinine [Mass/Vol] 0.80 mg/dL 0.55-1.02 [facility] Comment on above: The validity of the calculated GFR & GFRAA in patients over 70 years has not been determined. Clinical correlation is essential. Serum or plasma urea nitroge n measurement (mass/volume)Ordered By: Olivier Olmstead on 11-02-2022 Urea nitrogen [Mass/Vol] 13 mg/dL 7-18 [facility] Thin prep Papanicolaou smear with manual screeningOrdered By: Olivier Olmstead on 11-02-2022 Thin prep Papanicolaou smear with manual screening 28 U/L 15-37 [facility] Thin prep Papanicolaou smear with manual screening 7 5-15 [facility] - Microbiology an d Antimicrobial susceptibilityon 05-30-2022 SARS-CoV-2 (COVID-19) RNA FLORENTIN+probe Ql (Unsp spec) Not detected Not Detect [facility] Work Phone: Comment on above: Normal Reference Ran ge: Not DetectedMethod:(RT-PCR) real-time reverse transcriptase PCRLuminex JULIO C Instrument*The Food and Drug Administration (FDA) has issued an Emergency Use Authorization (EAU) for the Quint[employer] SARS-CoV-2 Assay for the rapid detection of the virus that causes COVID-19. This test has been validated, but the FDAs independent review of this validation is pending.*Negative results do not preclude infection and should not be used as the sole basis for treatment or patient management. Optimum specimen types and timing for peak viral levels during infections caused by SARS-CoV-2 have not been determined. Collection of multiple specimens from the same patient may be necessary to detect the virus. The possibility of a false negative result should be considered if the patient has clinical presentation or has had recent exposure. Absolute lymphocyte counton 04-27-2022 Lymphocytes Auto (Unsp spec) [#/Vol] 1.65 10*3/uL 0.83-4.51 [facility] Work Phone: Basophil percentageon 2021 Basophils/100 WBC (Bld) 0.4 % 0-1 [facility] Work Phone: Bilirubin [Mass/Vol] 0.40 mg/dL 0.20-1.00 [facility] Work Phone: Comment on above: For patients on eltr ombopag therapy, use of [facility] TBIL is not recommended. Chloride [Moles/Vol] 109 mmol/L 98-107 [facility] Work Phone: Eosinophils/100 WBC (Bld) 4.2 % 0-5 [facility] Work Phone: Glucose [Mass/Vol] 98 mg/dL 74-106 [facility] Work Phone: Neutrophils (Bld) [#/Vol] 3.3 10*3/uL 2.0-7.7 [facility] Work Phone: Neutrophils/100 WBC (Bld) 58.7 % 47-70 [facility] Work Phone: Potassium [Moles/Vol] 4.1 mmol/L 3.5-5.1 [facility]: Protein [Mass/Vol] 6.6 g/dL 6.4-8.2 [facility] Work Phone: Sodium [Moles/Vol] 141 mmol/L 136-145 [facility] Work Phone: WBC (Bld) [#/Vol] 5.7 10*3/uL 4.4-11.0 [facility] Work Phone: Blood erythrocytes count (nu mber/volume)on 04-27-2022 RBC (Bld) [#/Vol] 4.12 10*6/uL 4.2-5.4 [facility] Work Phone: Blood hemoglobin measurement (mass/volume)on 04-27-2022 Hemoglobin (Bld) [Mass/Vol] 13.4 g/dL 12.0-15.0 [facility] Work Phone: [phone] Blood lymphocytes/100 leukoc yteson 04-27-2022 Lymphocytes/100 WBC (Bld) 29.1 % 19-41 [facility] Work Phone: [phone] Blood monocytes/100 leukocyt eson 04-27-2022 Monocytes/100 WBC (Bld) 7.4 % 0-10 [facility] Work Phone: [phone] Blood platelet mean volumeon 04-27-2022 Platelet mean volume (Bld) [Entitic vol] 10.5 fL 6.2-12.0 [facility] Work Phone: Determination of erythrocyte mean corpuscular volume (MCV)on 04-27-2022 MCV (RBC) [Entitic vol] 97.6 fL 81-99 [facility] Work Phone: Hematocrit Auto (Bld) [Volum e fraction]on 04-27-2022 Hematocrit (Bld) [Volume fraction] 40.2 % 37-47 [facility] Work Phone: Laboratory - Chemistry and C hemistry - challengeon 04-27-2022 ALP [Catalytic activity/Vol] 103 U/L 45-117 [facility] Work Phone: ALT [Catalytic activity/Vol] 24 U/L 13-56 [facility] Work Phone: CO2 [Moles/Vol] 26.0 mmol/L 21.0-32.0 [facility] Work Phone: Globulin (S) [Mass/Vol] 3.0 g/dL 2.2-4.2 [facility] Work Phone: Urea nitrogen/Creatinine [Mass ratio] 26.5 mg/mg 10-20 [facility] Work Phone: Laboratory - Hematology and Cell countson 04-27-2022 Erythrocyte distribution width (RBC) [Entitic vol] 46.4 fL 35.1-43.9 [facility] Work Phone: Erythrocyte distribution width (RBC) [Ratio] 13.0 % 11.6-14.6 [facility] Work Phone: Immature granulocytes/100 WBC (Bld) 0.200 % 0.0-0.9 [facility] Work Phone: Comment on above: IG% - Immature Granu locytes (promyelocytes, myelocytes and metamyelocytes) > 1% indicates that a LEFT SHIFT is Present. MCH (RBC) [Entitic mass] 32.5 pg 27.0-32.0 [facility] Work Phone: Nucleated RBC/100 WBC (Bld) [Ratio] 0 % 0-5 [facility] Work Phone: MCHC Auto (RBC) [Mass/Vol]on 04-27-2022 MCHC (RBC) [Mass/Vol] 33.3 g/dL 32-36 [facility] Work Phone: No Panel Informationon 04-27 Estimated GFR (MDRD) Amer 91 mL/min >60 [facility] Work Phone: Comment on above: GFR Calc Estimated GFR (MDRD) Non-Af Amer 76 mL/min >60 [facility] Work Phone: Comment on above: Non- GFR Calc Thyroid Stimulating Hormone (TSH) 0.59 uIU/mL 0.358-3.74 [facility] Work Phone: Vitamin D 25-Hydroxy 34.2 ng/mL [facility] Work Phone: Comment on above: Vitamin D 25(OH) Sta tus Range Deficiency <20 ng/mL (50nmol/L) Insufficiency 20 - 30 ng/mL (50 - 75 nmol/L) Sufficiency 30 - 100 ng/mL (75 - 250 nmol/L) Toxicity >100 ng/mL (>250 nmol/L) Platelets bldon 04-27-2022 Platelets (Bld) [#/Vol] 247 10*3/uL 150-450 [facility] Work Phone: Serum or plasma albumin hesham urement (mass/volume)on 04-27-2022 Albumin [Mass/Vol] 3.6 g/dL 3.2-5.0 [facility] Work Phone: Serum or plasma albumin/glob ulin mass ratioon 04-27-2022 Albumin/Globulin [Mass ratio] 1.2 {ratio} 0.9-2.4 [facility] Work Phone: Serum or plasma calcium hesham urement (mass/volume)on 04-27-2022 Calcium [Mass/Vol] 9.2 mg/dL 8.5-10.1 [facility] Work Phone: Serum or plasma creatinine m easurement (mass/volume)on 04-27-2022 Creatinine [Mass/Vol] 0.79 mg/dL 0.55-1.02 [facility] Work Phone: Comment on above: The validity of the calculated GFR & GFRAA in patients over 70 years has not been determined. Clinical correlation is essential. Serum or plasma urea nitroge n measurement (mass/volume)on 04-27-2022 Urea nitrogen [Mass/Vol] 21 mg/dL 7-18 [facility] Work Phone: Thin prep Papanicolaou smear with manual screeningon 04-27-2022 Thin prep Papanicolaou smear with manual screening 15 U/L 15-37 [facility] Work Phone: Thin prep Papanicolaou smear with manual screening 6 5-15 [facility] Work Phone: Absolute lymphocyte counton 10-26-2021 Lymphocytes Auto (Unsp spec) [#/Vol] 1.64 10*3/uL 0.83-4.51 [facility] Work Phone: Basophil percentageon 2020 Bilirubin [Mass/Vol] 0.30 mg/dL 0.20-1.00 [facility] Work Phone: Comment on above: For patients on eltr ombopag therapy, use of [facility] TBIL is not recommended. Chloride [Moles/Vol] 108 mmol/L 98-107 [facility] Work Phone: Eosinophils/100 WBC (Bld) 4.2 % 0-5 [facility] Work Phone: Glucose [Mass/Vol] 90 mg/dL 74-106 [facility] Work Phone: Comment on above: Please note revised GLUCOSE reference range effective 2017. Neutrophils (Bld) [#/Vol] 3.0 10*3/uL 2.0-7.7 [facility] Work Phone: Potassium [Moles/Vol] 4.3 mmol/L 3.5-5.1 [facility] Work Phone: Protein [Mass/Vol] 6.9 g/dL 6.4-8.2 [facility] Work Phone: [phone] Sodium [Moles/Vol] 141 mmol/L 136-145 [facility] Work Phone: WBC (Bld) [#/Vol] 5.3 10*3/uL 4.4-11.0 [facility] Work Phone: Blood erythrocytes count (nu mber/volume)on 10-26-2021 RBC (Bld) [#/Vol] 4.19 10*6/uL 4.2-5.4 [facility] Work Phone: Blood hemoglobin measurement (mass/volume)on 10-26-2021 Hemoglobin (Bld) [Mass/Vol] 13.3 g/dL 12.0-15.0 [facility] Work Phone: [phone] Blood lymphocytes/100 leukoc yteson 10-26-2021 Lymphocytes/100 WBC (Bld) 31.1 % 19-41 [facility] Work Phone: Blood monocytes/100 leukocyt eson 10-26-2021 Monocytes/100 WBC (Bld) 7.4 % 0-10 [facility] Work Phone: Blood platelet mean volumeon 10-26-2021 Platelet mean volume (Bld) [Entitic vol] 10.7 fL 6.2-12.0 [facility] Work Phone: Determination of erythrocyte mean corpuscular volume (MCV)on 10-26-2021 MCV (RBC) [Entitic vol] 96.2 fL 81-99 [facility] Work Phone: Hematocrit Auto (Bld) [Volum e fraction]on 10-26-2021 Hematocrit (Bld) [Volume fraction] 40.3 % 37-47 [facility] Work Phone: Laboratory - Chemistry and C hemistry - challengeon 10-26-2021 ALP [Catalytic activity/Vol] 140 U/L 45-117 [facility] Work Phone: ALT [Catalytic activity/Vol] 34 U/L 13-56 [facility] Work Phone: CO2 [Moles/Vol] 27.0 mmol/L 21.0-32.0 [facility] Work Phone: Globulin (S) [Mass/Vol] 3.4 g/dL 2.2-4.2 [facility] Work Phone: Urea nitrogen/Creatinine [Mass ratio] 22.1 mg/mg 10-20 [facility] Work Phone: Laboratory - Hematology and Cell countson 10-26-2021 Basophils/100 WBC (Unsp spec) 0.6 % 0-1 [facility] Work Phone: Erythrocyte distribution width (RBC) [Entitic vol] 45.4 fL 35.1-43.9 [facility] Work Phone: Erythrocyte distribution width (RBC) [Ratio] 12.8 % 11.6-14.6 [facility] Work Phone: Immature granulocytes/100 WBC (Bld) 0.200 % 0.0-0.9 [facility] Work Phone: Comment on above: IG% - Immature Granu locytes (promyelocytes, myelocytes and metamyelocytes) > 1% indicates that a LEFT SHIFT is Present. MCH (RBC) [Entitic mass] 31.7 pg 27.0-32.0 [facility] Work Phone: Neutrophils/100 WBC (Bld) 56.5 % 47-70 [facility] Work Phone: Nucleated RBC/100 WBC (Bld) [Ratio] 0 % 0-5 [facility] Work Phone: [phone] MCHC Auto (RBC) [Mass/Vol]on 10-26-2021 MCHC (RBC) [Mass/Vol] 33.0 g/dL 32-36 [facility] Work Phone: No Panel Informationon 10-26 Estimated GFR (MDRD) Amer 109 mL/min >60 [facility] Work Phone: Comment on above: GFR Calc Estimated GFR (MDRD) Non-Af Amer 90 mL/min >60 [facility] Work Phone: Comment on above: Non- GFR Calc Thyroid Stimulating Hormone (TSH) 0.88 uIU/mL 0.358-3.74 [facility] Work Phone: Vitamin D 25-Hydroxy 42.0 ng/mL [facility] Work Phone: Comment on above: Vitamin D 25(OH) Sta tus Range Deficiency <20 ng/mL (50nmol/L) Insufficiency 20 - 30 ng/mL (50 - 75 nmol/L) Sufficiency 30 - 100 ng/mL (75 - 250 nmol/L) Toxicity >100 ng/mL (>250 nmol/L) Platelets bldon 10-26-2021 Platelets (Bld) [#/Vol] 246 10*3/uL 150-450 [facility] Work Phone: Serum or plasma albumin hesham urement (mass/volume)on 10-26-2021 Albumin [Mass/Vol] 3.5 g/dL 3.2-5.0 [facility] Work Phone: Serum or plasma albumin/glob ulin mass ratioon 10-26-2021 Albumin/Globulin [Mass ratio] 1.0 {ratio} 0.9-2.4 [facility] Work Phone: Serum or plasma calcium hesham urement (mass/volume)on 10-26-2021 Calcium [Mass/Vol] 9.0 mg/dL 8.5-10.1 [facility] Work Phone: Serum or plasma creatinine m easurement (mass/volume)on 10-26-2021 Creatinine [Mass/Vol] 0.68 mg/dL 0.55-1.02 [facility] Work Phone: Comment on above: The validity of the calculated GFR & GFRAA in patients over 70 years has not been determined. Clinical correlation is essential. Serum or plasma urea nitroge n measurement (mass/volume)on 10-26-2021 Urea nitrogen [Mass/Vol] 15 mg/dL 7-18 [facility] Work Phone: Thin prep Papanicolaou smear with manual screeningon 10-26-2021 Thin prep Papanicolaou smear with manual screening 24 U/L 15-37 [facility] Work Phone: Thin prep Papanicolaou smear with manual screening 6 5-15 [facility] Work Phone: Office Visiton 05-18-2017 Documentation of current medications (procedure) Done Invalid Interpretation Code [employer] Work Phone: [phone] Fall risk assessment Yes Invalid Interpretation Code [facility] [employer] 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 Work Phone: [phone] Triglyceride 132 mg/dL Invalid Interpretation Code [facility] [employer] Phone: [phone] Lab Report: Basic Metabolic Profile (BMP)on 06-01-2016 Anion gap 7 mmol/L Invalid Interpretation Code 5-15 [facility] [employer] Work Phone: [phone] BUN/Creatinine Ratio 28.0 RATIO High 10-20 [facility] [employer] Work Phone: [phone] Calcium 9.2 mg/dL Invalid Interpretation Code 8.5-10.1 [facility] [employer] Work Phone: [phone] Chloride 108 mmol/L High 98-107 [facility] [employer] Work Phone: [phone] CO2 26.0 mmol/L Invalid Interpretation Code 21.0-32.0 [facility] [employer] Work Phone: [phone] Creatinine 0.61 mg/dL Invalid Interpretation Code 0.55-1.20 [employer] Work Phone: [phone] eGFR (non-black) 104 mL/min/{1.73_m2} Invalid Interpretation Code >60 [employer] Work Phone: [phone] eGFR (non-black) 126 mL/min/{1.73_m2} Invalid Interpretation Code >60 [employer] Work Phone: [phone] Glucose 86 mg/dL Invalid Interpretation Code 70-110 [employer] Work Phone: [phone] Glucose mass conc 86 mg/dL Invalid Interpretation Code 70-110 [employer] Work Phone: [phone] Potassium molar conc 4.3 mmol/L Invalid Interpretation Code 3.5-5.1 [employer] Work Phone: [phone] Sodium 141 mmol/L Invalid Interpretation Code 136-145 [employer] Work Phone: [phone] Urea nitrogen 17 mg/dL Invalid Interpretation Code 7-18 [employer] Phone: [phone] Office Visit: [facility] 06-01-20 Dietary management education, guidance, and counseling (procedure) yes Invalid Interpretation Code [employer] Work Phone: [phone] Documentation of current medications (procedure) Done Invalid Interpretation Code [employer] Phone: [phone] 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-21-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 Alanine aminotransferase (ALT) 22 U/L Invalid Interpretation Code [employer] Phone: [phone] Albumin 4.1 g/dL Invalid Interpretation Code [employer] Phone: [phone] Alkaline phosphatase (ALP) 116 U/L Invalid Interpretation Code [employer] Phone: [phone] Aspartate aminotransferase (AST) 29 U/L Invalid Interpretation Code [employer] Work Phone: [phone] Bilirubin (total) 0.3 mg/dL Invalid Interpretation Code [employer] Phone: [phone] Erythrocyte distribution width Auto Ratio (RBC) 13.2 % Invalid Interpretation Code [employer] Phone: [phone] Erythrocytes (RBC) 4.33 10*6/uL Invalid Interpretation Code [employer] Phone: [phone] Hematocrit (HCT) 42.4 % Invalid Interpretation Code [employer] Phone: [phone] Hemoglobin mass conc (Bld) 14.0 g/dL Invalid Interpretation Code [employer] Work Phone: [phone] MCH 32.3 pg Invalid Interpretation Code [employer] Work Phone: [phone] MCHC mass conc (RBC) 33.0 g/dL Invalid Interpretation Code [employer] Work Phone: [phone] MCV 97.9 fL Invalid Interpretation Code [employer] Work Phone: [phone] Platelets 254 10*3/mm3 Invalid Interpretation Code [employer] Work Phone: [phone] PMV by Abran 11.5 fL Invalid Interpretation Code [employer] Work Phone: [phone] Protein 7.0 g/dL Invalid Interpretation Code [employer] Work Phone: [phone] Thyroid stimulating hormone (TSH) 4.650 u[iU]/mL Invalid Interpretation Code [employer] Work Phone: [phone] WBC (Leukocytes) 5.98 10*3/uL Invalid Interpretation Code [employer] Work Phone: [phone] Office Visiton 12-01-2015 Tobacco use CPHS Former smoker Invalid Interpretation Code [employer] Phone: [phone] Replaced Document: Christin Ziegler CG Observationson 12-01-2015 BUN (urea nitrogen) Atrial Rhythm P:QRS - 1:1, Abnormal P axis, H Rate 61-Left bundle branch block. ABNORMAL Invalid Interpretation Code [employer] Phone: [phone] EKG QRS axis -50 deg Invalid Interpretation Code [employer] Work Phone: [phone] GE use only - for [employer] import when terms are not otherwise specified 449 ms Invalid Interpretation Code [employer] Work Phone: [phone] P Rochelle -90 deg Invalid Interpretation Code [employer] Work Phone: [phone] P wave axis, electrocardiogram -90 deg Invalid Interpretation Code [employer] Work Phone: [phone] NC Interval 182 ms Invalid Interpretation Code [employer] Work Phone: [phone] NC interval, electrocardiogram 182 ms Invalid Interpretation Code [employer] Work Phone: [phone] Pulse (Heart Rate) 61 /min Invalid Interpretation Code [employer] Phone: [phone] QRS axis, electrocardiogram -50 deg Invalid Interpretation Code [employer] Work Phone: [phone] QRS Duration 132 ms Invalid Interpretation Code [employer] Work Phone: [phone] QRS duration, electrocardiogram 132 ms Invalid Interpretation Code [employer] Phone: [phone] QT Interval new path ms Invalid Interpretation Code [employer] Work Phone: [phone] QT interval, electrocardiogram new path ms Invalid Interpretation Code [employer] Work Phone: [phone] QTc Valentino 449 ms Invalid Interpretation Code [employer] Work Phone: [phone] T Rochelle -1 deg Invalid Interpretation Code [employer] Work Phone: [phone] T wave axis, electrocardiogram -1 deg Invalid Interpretation Code [employer] Phone: [phone] 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 05-06-2015 very low density lipoproteins 14 mg/dL Invalid Interpretation Code [employer] Work Phone: [phone] Office Visit: [facility] 04-21-20 15 General cardiovascular disease 10Y risk [#] [place].D'Agosterasmo 8 % Invalid Interpretation Code [employer] Work Phone: [phone] Office Visiton 10-05-2014 cardiac risk group B Invalid Interpretation Code [employer] Phone: [phone] Replaced Document: Keyurmark E CG Observationson 06-04-2013 Pulse (Heart Rate) 437 ms Invalid Interpretation Code [employer] Work Phone: [phone] Lab Reporton 07-22-2012 Bilirubin (direct) 0.15 mg/dL Invalid Interpretation Code [employer] Work Phone: [phone] Lab Reporton 03-07-2012 Albumin/Globulin Ratio 1.2 {ratio} Invalid Interpretation Code [employer] Work Phone: [phone] Globulin 3.1 g/dL Invalid Interpretation Code [employer] Work Phone: [phone] MCHC mass conc (RBC) 34.5 % Invalid Interpretation Code [employer] Work Phone: [phone] Culture, urine Bacteria identified Cx Nom (U) Escherichia coli [facility] Work Phone: No Panel Information Influenza Types A,B Direct FA (MADALYN) [facility] Work Phone: Vital Signs Date Time Vital Sign Value Performing Clinician Viraj ochoa 05-18-2025 07:19-0400 Body height 160.[address] Olivier Olmstead MD Work Phone: [facility] 05-18-2025 07:19-0400 Body mass index (BMI) [Ratio] 29.9 kg/m2 Dr. Olivier Olmstead MD Work Phone: [facility] 05-18-2025 07:19-0400 Body weight 76.[address] Olivier Olmstead MD Work Phone: [facility] 05-18-2025 07:19-0400 Diastolic blood pressure 83 mm[Hg] Dr. Olivier Olmstead MD Work Phone: [facility] 05-18-2025 07:19-0400 Heart rate 116 /min Dr. Olivier Olmstead MD Work Phone: [facility] 05-18-2025 07:19-0400 Respiratory rate 18 /min Dr. Olivier Olmstead MD Work Phone: [facility] 05-18-2025 07:19-0400 SaO2% (BldA) [Mass fraction] 95 % Dr. Olivier Olmstead MD Work Phone: [facility] 05-18-2025 07:19-0400 Systolic blood pressure 123 mm[Hg] Dr. Olivier Olmstead MD Work Phone: [facility] 04-20-2025 14:39-0400 Body temperature 97.6 [degF] Dr. Olivier Olmstead MD Work Phone: [facility] 04-20-2025 14:39-0400 Diastolic blood pressure 87 mm[Hg] Dr. Olivier Olmstead MD Work Phone: [facility] 04-20-2025 14:39-0400 Heart rate 88 /min Dr. Olivier Olmstead MD Work Phone: [facility] 04-20-2025 14:39-0400 Respiratory rate 16 /min Dr. Olivier Olmstead MD Work Phone: [facility] 04-20-2025 14:39-0400 SaO2% (BldA) [Mass fraction] 96 % Dr. Olivier Olmstead MD Work Phone: 1(952)302-734108 [place] [address] 04-20-2025 14:39-0400 Systolic blood pressure 149 mm[Hg] Dr. Olivier Olmstead MD Work Phone: 5(580)438-101308 [place] [address] 04-20-2025 09:40-0400 Body height 160.[address] Olivier Olmstead MD Work Phone: 5(903)833-464731 [place] [address] 12-25-2024 11:27-0500 Body height 160.[address] Olivier Olmstead MD Work Phone: 7(343)816-615231 [place] [address] 12-25-2024 11:27-0500 Body mass index (BMI) [Ratio] 29.7 kg/m2 Dr. Olivier Olmstead MD Work Phone: 9(399)862-027131 [place] [address] 12-25-2024 11:27-0500 Body weight 76.[address] Olivier Olmstead MD Work Phone: 1(403)964-132631 [place] [address] 12-25-2024 11:27-0500 Diastolic blood pressure 82 mm[Hg] Dr. Olivier Olmstead MD Work Phone: 4(898)751-201331 [place] [address] 12-25-2024 11:27-0500 Heart rate 84 /min Dr. Olivier Olmstead MD Work Phone: 3(223)172-676208 [place] [address] 12-25-2024 11:27-0500 Respiratory rate 18 /min Dr. Olivier Olmstead MD Work Phone: 5(299)474-086108 [place] [address] 12-25-2024 11:27-0500 SaO2% (BldA) [Mass fraction] 94 % Dr. Olivier Olmstead MD Work Phone: 1(458)001-109508 [place] [address] 12-25-2024 11:27-0500 Systolic blood pressure 137 mm[Hg] Dr. Olivier Olmstead MD Work Phone: [facility] 11-21-2024 13:53-0500 Body temperature 98 [degF] Dr. Olivier Olmstead MD Work Phone: [facility] 11-21-2024 13:53-0500 Diastolic blood pressure 56 mm[Hg] Dr. Olivier Olmstead MD Work Phone: 5(366)029-016008 [place] [address] 11-21-2024 13:53-0500 Heart rate 66 /min Dr. Olivier Olmstead MD Work Phone: 4(062)668-714808 [place] [address] 11-21-2024 13:53-0500 Respiratory rate 16 /min Dr. Olivier Olmstead MD Work Phone: 4(224)622-749108 [place] [address] 11-21-2024 13:53-0500 SaO2% (BldA) [Mass fraction] 96 % Dr. Olivier Olmstead MD Work Phone: 7(837)084-600108 [place] [address] 11-21-2024 13:53-0500 Systolic blood pressure 137 mm[Hg] Dr. Olivier Olmstead MD Work Phone: 0(509)100-336708 [place] [address] 11-21-2024 11:30-0500 Body mass index (BMI) [Ratio] 29.7 kg/m2 Dr. Olivier Olmstead MD Work Phone: 5(969)464-914208 [place] [address] 11-21-2024 11:30-0500 Body weight 76.[address] Olivier Olmtsead MD Work Phone: 4(456)493-814808 [place] [address] 01-03-2024 09:33-0500 Body height 160.[address] Olivier Olmstead Work Phone: 5(140)158-855408 [place] [address] 01-03-2024 09:33-0500 Body mass index (BMI) [Ratio] 31.1 kg/m2 Dr. Olivier Olmstead Work Phone: 9(600)316-467808 [place] [address] 01-03-2024 09:33-0500 Body temperature 97 [degF] Dr. Olivier Olmstead Work Phone: 9(143)424-083108 [place] [address] 01-03-2024 09:33-0500 Body weight 79.[address] Olivier Olmstead Work Phone: 5(760)273-639908 [place] [address] 01-03-2024 09:33-0500 Diastolic blood pressure 76 mm[Hg] Dr. Olivier Olmstead Work Phone: [facility] 01-03-2024 09:33-0500 Heart rate 93 /min Dr. Olivier Olmstead Work Phone: [facility] 01-03-2024 09:33-0500 Respiratory rate 17 /min Dr. Olivier Olmstead Work Phone: [facility] 01-03-2024 09:33-0500 SaO2% (BldA) [Mass fraction] 96 % Dr. Olivier Olmstead Work Phone: 2(772)855-679908 [place] [address] 01-03-2024 09:33-0500 Systolic blood pressure 158 mm[Hg] Dr. Olivier Olmstead Work Phone: 2(232)501-070808 [place] [address] 11-28-2023 13:29-0500 Body height 160.[address] Olivier Olmstead Work Phone: 8(701)027-988008 [place] [address] 11-28-2023 13:29-0500 Body mass index (BMI) [Ratio] 31.3 kg/m2 Dr. Olivier Olmstead Work Phone: 2(196)031-014108 [place] [address] 11-28-2023 13:29-0500 Body weight 80.[address] Olivier Olmstead Work Phone: [facility] 11-28-2023 13:29-0500 Diastolic blood pressure 74 mm[Hg] Dr. Olivier Olmstead Work Phone: [facility] 11-28-2023 13:29-0500 Heart rate 88 /min Dr. Olivier Olmstead Work Phone: [facility] 11-28-2023 13:29-0500 Respiratory rate 20 /min Dr. Olivier Olmstead Work Phone: [facility] 11-28-2023 13:29-0500 Systolic blood pressure 136 mm[Hg] Dr. Olivier Olmstead Work Phone: [facility] 09-13-2022 13:53-0500 Body height 160.[address] Olivier Olmstead Work Phone: [facility] 09-13-2022 13:53-0500 Body mass index (BMI) [Ratio] 32.9 kg/m2 Dr. Olivier Olmstead Work Phone: [facility] 09-13-2022 13:53-0500 Body weight 84.[address] Olivier Olmstead Work Phone: [facility] 09-13-2022 13:53-0500 Diastolic blood pressure 82 mm[Hg] Dr. Olivier Olmstead Work Phone: [facility] 09-13-2022 13:53-0500 Heart rate 84 /min Dr. Olivier Olmstead Work Phone: [facility] 09-13-2022 13:53-0500 Respiratory rate 18 /min Dr. Olivier Olmstead Work Phone: [facility] 09-13-2022 13:53-0500 Systolic blood pressure 138 mm[Hg] Dr. Olivier Olmstead Work Phone: [facility] 05-11-2022 11:44-0400 Body height 160.[address] Olivier Olmstead Work Phone: [facility] Work Phone: 05-11-2022 11:44-0400 Body mass index (BMI) [Ratio] 31.1 kg/m2 Dr. Olivier Olmstead Work Phone: [facility] Work Phone: 05-11-2022 11:44-0400 Body weight 79.[address] 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 [facility] Work Phone: 05-18-2017 11:03-0400 BP Diastolic 60 mm[Hg] [facility] Work Phone: 05-18-2017 11:03-0400 BP Systolic 102 mm[Hg] Harumi DeFinearline [facility] Work Phone: 05-18-2017 11:03-0400 Height 160.02 cm Harumi DeFinis [facility] Work Phone: 05-18-2017 11:03-0400 Pulse (Heart Rate) 68 /min Harumi DeFinis [facility] Work Phone: 05-18-2017 11:03-0400 Respiratory Rate 20 /min Harumi DeFinearline [facility] Work Phone: 05-18-2017 11:03-0400 [facility] Work Phone: 06-01-2016 14:31-0400 BMI (Body Mass Index) 35.03 kg/m2 [facility] Work Phone: 06-01-2016 14:31-0400 BP Diastolic 68 mm[Hg] Fabiola Ochoa RN [facility] Work Phone: 06-01-2016 14:31-0400 BP Systolic 110 mm[Hg] Fabiola Ochoa RN [facility] Work Phone: 06-01-2016 14:31-0400 BSA (Body Surface Area) 1.93 m2 Fabiola Ochoa RN [facility] Work Phone: 06-01-2016 14:31-0400 Pulse (Heart Rate) 72 /min Fabiola Ochoa RN [facility] Work Phone: 06-01-2016 14:31-0400 Respiratory Rate 16 /min Fabiola Ochoa RN [facility] Work Phone: 06-01-2016 14:31-0400 Weight 89.72 kg Fabiola Ochoa RN [facility] Work Phone: 02-22-2012 11:41-0400 Height 160.02 cm Fabiola Ochoa RN [facility] Work Phone: Encounters Encounter Date Encounter Type Care Provider Facility Start: 06-11-2025 ambulatory Arnie Demiter Facility :[facility] Start: 05-18-2025 End: 05-18-2025 Patient encounter procedure Arnie CHAND -[facility] Work Phone: Start: 05-18-2025 End: 05-18-[address] Olivier Olmstead MD Work Phone: -[facility] Start: 04-20-2025 End: 04-20-2025 Emergency department patient visit Dr. Olivier Olmstead MD Work Phone: -Emergency Department Work Phone: Start: 04-06-2025 End: 04-06-[address] Olivier Olmstead MD Work Phone: [facility] Work Phone: Start: 04-06-2025 End: 04-06-[address] Olivier Olmstead MD -Cat Scan [facility] Work Phone: Start: 04-06-2025 End: 04-06-2025 ambulatory Olivier Olmstead Facility:[facility] Start: 12-31-2024 End: 12-31-[address] Olivier Olmstead MD Work Phone: [facility] Work Phone: Start: 12-31-2024 End: 12-31-[address] Olivier Olmstead MD -Laboratory, Phy Office 3rd [facility] Start: 12-31-2024 End: 12-31-2024 ambulatory Olivier Jaycob Frankok Facility:[facility] Start: 12-25-2024 End: 12-25-[address] Anastacio Scruggs MD -[facility] Work Phone: Start: 12-25-2024 End: 12-25-2024 ambulatory Anastacio Scruggs Facility:[facility] Start: 11-21-2024 End: 11-21-[address] Olivier Olmstead MD -Medical Out Work Phone: Start: 11-21-2024 End: 11-21-2024 ambulatory Olivier Frankok Facility:[facility] Start: 11-20-2024 End: 11-20-[address] Olivier Olmstead MD -Cat Scan, [facility] Work Phone: Start: 11-20-2024 End: 11-20-2024 ambulatory Olivier Chi Ishan Facility:[facility] Start: 07-23-2024 End: 07-23-2024 ambulatory Olivier Chi Ishan Facility:[facility] Start: 07-07-2024 End: 07-07-2024 ambulatory Olivier Chi Ishan Facility:[facility] Start: 06-19-2024 End: 06-19-2024 ambulatory Olivier Chi Ishan Facility:[facility] Start: 06-12-2024 End: 06-12-2024 ambulatory Olivier Chi Ishan Facility:[facility] Start: 06-02-2024 End: 06-02-2024 ambulatory Olivier Chi Ishan Facility:[facility] Start: 01-16-2024 End: 01-16-[address] Olivier Olmstead Work Phone: [facility] Work Phone: Start: 01-16-2024 End: 01-16-[address] Olivier Olmstead Work Phone: [facility] Work Phone: Start: 01-03-2024 Non-patient / Non-visit Dr. Dre Olmstead Work Phone: [facility] Work Phone: Start: 01-03-2024 End: 01-03-[address] Olivier Olmstead Work Phone: [facility] Work Phone: Start: 01-02-2024 Non-patient / Non-visit Dr. Dre Olmstead Work Phone: [facility] Work Phone: Start: 01-02-2024 Non-patient / Non-visit Dr. Dre Olmstead Work Phone: [facility] Start: 01-02-2024 End: 01-02-[address] Olivier Olmstead Work Phone: [facility] Work Phone: Start: 01-02-2024 End: 01-02-[address] Olivier Olmstead Work Phone: [facility]Cardiovascular Services Work Phone: Start: 12-24-2023 End: 12-24-[address] Olivier Olmstead Work Phone: [facility] Work Phone: Start: 12-24-2023 End: 12-24-[address] Olivier Olmstead Work Phone: [facility]-Laboratory, Specimen Work Phone: Start: 12-20-2023 End: 12-20-[address] Olivier Olmstead Work Phone: [facility] Work Phone: Start: 12-20-2023 End: 12-20-[address] Olivier Olmstead Work Phone: [facility] Work Phone: Start: 12-03-2023 End: 12-03-[address] Olivier Olmstead Work Phone: [facility] Work Phone: Start: 12-03-2023 End: 12-03-[address] Olivier Olmstead Work Phone: [facility]-Outpatient Breast Imaging Work Phone: Start: 11-28-2023 End: 11-28-[address] Olivier Olmstead Work Phone: [facility] Work Phone: Start: 11-05-2023 End: 11-05-2023 ambulatory [facility] Work Phone: Start: 11-05-2023 End: 11-05-2023 Patient encounter procedure [facility] Office 3rd Flr Start: 05-09-2023 End: 05-09-2023 ambulatory [facility] Work Phone: Start: 05-09-2023 End: 05-09-2023 Patient encounter procedure [facility] Office 3rd Flr Start: 05-02-2023 End: 05-02-2023 ambulatory [facility] Work Phone: Start: 05-02-2023 End: 05-02-2023 [facility] Start: 11-02-2022 End: 11-02-[address] Olivier Olmstead Work Phone: [facility] Work Phone: Start: 11-02-2022 End: 11-02-[address] Olivier Olmstead Work Phone: [facility] Office 3rd Flr Start: 09-13-2022 End: 09-13-[address] Olivier Olmstead Work Phone: [facility] Start: 05-30-2022 End: 05-30-[address] [facility]stead [facility] Start: 05-24-2022 End: 05-24-[address] Olivier Olmstead Work Phone: [facility] Start: 05-17-2022 End: 05-17-[address] Olivier Olmstead Work Phone: [facility] Start: 05-11-2022 End: 05-11-[address] Olivier Olmstead Work Phone: [facility] Start: 04-27-2022 End: 04-27-2022 Patient encounter procedure [facility], Phy Office 3rd Flr Start: 03-01-2022 End: 03-01-2022 Patient encounter procedure [facility], [facility] Start: 02-01-2022 End: 02-01-2022 Patient encounter procedure [facility] Start: 10-26-2021 Patient encounter procedure [facility], y Office 3rd Flr Procedures Date Procedure Procedure Detail Performing Clinician Start: 04-20-2025 X-ray of chest, PA a nd lateral views Dr. Olivier Olmstead MD Work Phone: Start: 04-06-2025 CT of thorax, abdome n and pelvis with contrast Dr. Olivier Olmstead MD Work Phone: Start: 12-31-2024 Vitamin D, 25-hydrox y measurement Dr. Olivier Olmstead MD Work Phone: Comment on above: Vitamin D StatusDefi ciency: <20 ng/mL (50nmol/L)Insufficiency: 20-30 ng/mL (50-75 nmol/L)Sufficiency: 30-100 ng/mL (75-250 nmol/L)Toxicity: >100 ng/mL (>250 nmol/L) Start: 12-25-2024 Evaluation of diagno stic study results Dr. Olivier Olmstead MD Work Phone: Start: 11-21-2024 Gram stain microscopy Bassem Olmstead MD Work Phone: Start: 11-21-[address] Blue Olmstead MD Work Phone: Start: 11-21-[address] Olivier Olmstead MD Work Phone: Start: 11-20-2024 SARS-CoV-2, Influenz a & RSV (PCR) Dr. Olivier Olmstead MD Work Phone: Start: 11-20-[address] Olivier montana MD Work Phone: Start: 11-20-2024 Computed tomography of abdomen and pelvis with contrast Dr. Olivier Olmstead MD Work Phone: Start: 01-16-2024 MRI of pelvis with contrast Dr. Olivier Olmstead Work Phone: Start: 01-02-2024 Cardiovascular stres s test using pharmacologic stress agent Dr. Olivier Olmstead Work Phone: Start: 12-24-2023 Clostridium difficil e detection Dr. Olivier Olmstead Work Phone: Start: 12-24-[address] Olivier Olmstead Work Phone: Start: 12-24-2023 Measurement of occul t blood in stool specimen using immunoassay Dr. Olivier Olmstead Work Phone: Start: 12-24-2023 Ova OR parasites identification Dr. Olivier Olmstead Work Phone: Start: 12-20-2023 Computed tomography of abdomen and pelvis with contrast Dr. Olivier Olmstead Work Phone: Start: 12-03-2023 Screening mammography Bassem Olmstead Work Phone: Start: 05-02-2023 Influenza Types A,B Direct FA ([facility]) Start: 05-02-2023 Respiratory syncytia l virus antigen assay Start: 11-02-2022 X-ray of both feet Dr. Olivier Olmstead Work Phone: Start: 03-01-2022 Complete x-ray serie s of lumbar spine with bending views Start: 03-01-2022 Plain x-ray of pelvi s and lower extremity Start: 02-01-2022 Screening mammography Start: 05-18-2017 End: 05-18-2017 Follow Up Appt [...] 12-01-2015 End: 06-01-2016 MMAndria Good MD Start: 12-01-2015 End: 06-01-2016 Electrocardiogram, complete Claude rich MD Start: 12-01-2015 End: 06-01-2016 Follow Up Appt 6 months Claude Good MD Start: 12-01-2015 End: 06-01-2016 SERGIO Good MD Start: 04-21-2015 End: 04-22-2015 Documentation [...] Claude Good MD Start: 10-05-2014 End: 10-06-2014 MMAndria Good MD Start: 10-05-2014 End: 10-06-2014 Electrocardiogram, [...] PF Sondra Bhatia PA-C Work Phone: Start: 06-04-2013 End: 06-04-2013 Electrocardiogram, complete Sondra Funez PA-C Work Phone: Start: 06-04-2013 End: 06-04-2013 Follow Up Appt 6 months Sondra bahena PA-C Work Phone: Start: 06-04-2013 End: 06-04-2013 [facility] Sondra Bhatia PA-C Work Phone: Start: 08-14-2012 [...] Up Appt 6 months Claude Good MD Influenza Types A,B Direct FA ([facility]) Dr. Olivier Olmstead Work Phone: Respiratory syncytia l virus antigen assay Dr. Olivier Olmstead Work Phone: Urine culture Plan of Treatment Date Care Activity Detail Author Start: 05-18-2025 Evaluation of diagnostic study results [facility] Start: 04-20-2025 [facility] Start: 04-20-2025 Electrocardiographic procedure [facility] Start: 04-20-2025 End: 04-20-2025 [facility] Start: 11-21-2024 Iv infusion hydration each additional hour HYDRATE IV INFUSION ADD-ON [facility] Start: 11-21-2024 Iv infusion hydration initial 31 min-1 hour HYDRATION IV INFUSION INIT [facility] Start: 12-24-2023 Procedure [facility] Start: 05-22-2018 End: 05-22-2018 Appointment Appointment [facility] Work Phone: Start: 05-18-2017 End: 05-18-2017 Appointment Appointment [facility] Work Phone: Start: 05-18-2017 End: 05-18-2017 Follow Up Appt 1 year Follow Up Appt 1 year [facility] Work Phone: Start: 05-18-2017 End: 05-18-2017 PFM PFM [facility] Work Phone: Start: 06-01-2016 End: 06-02-2016 *BMP *BMP [facility] Work Phone: Start: 06-01-2016 End: 06-01-2016 Follow Up Appt 6 months Follow Up Appt 6 months [facility] Work Phone: Start: 06-01-2016 End: 06-01-2016 Follow Up Appt Other Follow Up Appt Other [facility] Work Phone: Start: 06-01-2016 End: 06-01-2016 PFM PFM [facility] Work Phone: Start: 06-01-2016 End: 06-02-2016 *BMP *BMP [facility] Work Phone: Start: 06-01-2016 End: 06-01-2016 Follow Up Appt 6 months Follow Up Appt 6 months [facility] Work Phone: Start: 06-01-2016 End: 06-01-2016 Follow Up Appt Other Follow Up Appt Other [facility] Work Phone: Start: 06-01-2016 End: 06-01-2016 PFM PFM [facility] Work Phone: Start: 12-01-2015 End: 06-01-2016 Ecg routine ecg w/least 12 lds w/i&r EKG (In office) [facility] Work Phone: Start: 12-01-2015 End: 06-01-2016 Follow Up Appt 6 months Follow Up Appt 6 months [facility] Work Phone: Start: 12-01-2015 End: 06-01-2016 MMM MMM [facility] Work Phone: Start: 12-01-2015 End: 06-01-2016 Electrocardiogram, complete EKG (In office) [facility] Work Phone: Start: 12-01-2015 End: 06-01-2016 Follow Up Appt 6 months Follow Up Appt 6 months [facility] Work Phone: Start: 12-01-2015 End: 06-01-2016 MMM MMM [facility] Work Phone: Start: 04-21-2015 End: 04-21-2015 Follow Up Appt 6 months Follow Up Appt 6 months [facility] Work Phone: Start: 04-21-2015 End: 04-21-2015 PFM PFM [facility] Work Phone: Start: 04-21-2015 End: 04-21-2015 Follow Up Appt 6 months Follow Up Appt 6 months [facility] Work Phone: Start: 04-21-2015 End: 04-21-2015 PFM PFM [facility] Work Phone: Start: 10-05-2014 End: 10-06-2014 Ecg routine ecg w/least 12 lds w/i&r EKG (In office) [facility] Work Phone: Start: 10-05-2014 End: 10-06-2014 Follow Up Appt 6 months Follow Up Appt 6 months [facility] Work Phone: Start: 10-05-2014 End: 10-06-2014 MMM MMM [facility] Work Phone: Start: 10-05-2014 End: 10-06-2014 Electrocardiogram, complete EKG (In office) [facility] Work Phone: Start: 10-05-2014 End: 10-06-2014 Follow Up Appt 6 months Follow Up Appt 6 months [facility] Work Phone: Start: 10-05-2014 End: 10-06-2014 MMM MMM [facility] Work Phone: Start: 04-01-2014 End: 04-14-2015 Follow Up Appt 6 months Follow Up Appt 6 months [facility] Work Phone: Start: 04-01-2014 End: 04-21-2015 Follow Up Appt Other Follow Up Appt Other [facility] Work Phone: Start: 04-01-2014 End: 04-14-2015 MMM MMM [facility] Work Phone: Start: 04-01-2014 End: 04-14-2015 Follow Up Appt 6 months Follow Up Appt 6 months [facility] Work Phone: Start: 04-01-2014 End: 04-21-2015 Follow Up Appt Other Follow Up Appt Other [facility] Work Phone: Start: 04-01-2014 End: 04-14-2015 MMM MMM [facility] Work Phone: Start: 06-04-2013 End: 06-04-2013 Ecg routine ecg w/least 12 lds w/i&r EKG (In office) [facility] Work Phone: Start: 06-04-2013 End: 06-04-2013 Follow Up Appt 6 months Follow Up Appt 6 months [facility] Work Phone: Start: 06-04-2013 End: 06-04-2013 PFM [facility] Work Phone: Start: 06-04-2013 End: 06-04-2013 Electrocardiogram, complete EKG (In office) [facility] Work Phone: Start: 06-04-2013 End: 06-04-2013 Follow Up Appt 6 months Follow Up Appt 6 months [facility] Work Phone: Start: 06-04-2013 End: 06-04-2013 PFM PFM [facility] Work Phone: Start: 08-14-2012 End: 08-14-2012 Ecg routine ecg w/least 12 lds w/i&r EKG (In office) [facility] Work Phone: Start: 08-14-2012 End: 08-14-2012 Follow Up Appt 6 months Follow Up Appt 6 months [facility] Work Phone: Start: 08-14-2012 End: 08-14-2012 Electrocardiogram, complete EKG (In office) [facility] Work Phone: Start: 08-14-2012 End: 08-14-2012 Follow Up Appt 6 months Follow Up Appt 6 months [facility] Work Phone: Start: 02-22-2012 End: 02-22-2012 Ecg routine ecg w/least 12 lds w/i&r EKG (In office) [facility] Work Phone: Start: 02-22-2012 End: 03-04-2013 Follow Up Appt 6 months Follow Up Appt 6 months [facility] Work Phone: Start: 02-22-2012 End: 02-22-2012 Electrocardiogram, complete EKG (In office) [facility] Work Phone: Start: 02-22-2012 End: 03-04-2013 Follow Up Appt 6 months Follow Up Appt 6 months [facility] Work Phone: Ambulatory ECG [facility] MR Abdomen WO and W contrast IV [facility] NM Heart Views W str ess and W radionuclide IV [facility] Ova and parasites id entified in Unspecified specimen by Light microscopy [facility] Patient referral [facility] Work Phone: Procedure [facility] Troponin T.cardiac [Mass/volume] in Serum or Plasma by High sensitivity method [facility] [place] [place] Immunizations Immunization Date Immunization Notes Care Provider Fa cility 01-19-2021 Covid (Moderna) [facility] 12-22-2020 Covid (Moderna) [facility] 06-29-2017 Influenza virus vaccine [facility] 08-27-2012 Pneumococcal Vaccine [facility] Work Phone: 08-27-2012 pneumococcal vaccine , unspecified formulation Dr. Olivier Olmstead Work Phone: [facility] Payers Date Payer Category Payer Self-pay [id number] 2015 Medicare [id number] Medicare [id number] Unknown [id number] 2.16.8 [id number] Unknown [id number] 2.16.8 [id number] Unknown [id number] 2.16.8 [id number] Unknown [id number] 2.16.8 [id number] Unknown [id number] 2.16.8 [id number] Unknown [id number] 2.16.8 [id number] Unknown [id number] 2.16.8 [id number] Unknown [id number] 2.16.8 [id number] Unknown [id number] 2.16.8 [id number] Unknown [id number] 2.16.8 [id number] Unknown [id number] 2.16.8 [id number] Unknown [id number] 2.16.8 [id number] Unknown [id number] 2.16.8 [id number] Social History Date Type Detail Facility Start: 09-07-2021 End: 01-03-2024 Tobacco smoking status MEIS Unknown if ever smoked [facility] Start: 10-15-2017 None [facility] Start: 05-29-2020 Alone [facility] Start: 1950 Sex Assigned At Female [facility] Start: 06-23-2024 End: 04-20-2025 Tobacco smoking status NHIS Ex-smoker (finding) [facility] Start: 01-11-2025 Sex Female (finding) [facility] Medical Equipment Procedure Code Equipment Code Equipment Origin al Text Equipment Identifier Dates STENT,URETERAL PIGTAIL [id number] FDA Start: 10-15-2017 STENT,URETERAL 6 FR PIG 6X26 FDA Start: 11-02-2017 STENT,URETERAL PIGTAIL [id number] FDA Start: 10-15-2017 STENT,URETERAL 6 FR PIG 6X26 FDA Start: 11-02-2017 STENT,URETERAL PIGTAIL [id number] FDA Start: 10-15-2017 STENT,URETERAL 6 FR PIG 6X26 FDA Start: 11-02-2017 STENT,URETERAL PIGTAIL [id number] FDA Start: 10-15-2017 STENT,URETERAL 6 FR PIG 6X26 FDA Start: 11-02-2017 STENT,URETERAL PIGTAIL [id number] FDA Start: 10-15-2017 STENT,URETERAL 6 FR PIG 6X26 FDA Start: 11-02-2017 STENT,URETERAL PIGTAIL [id number] FDA Start: 10-15-2017 STENT,URETERAL 6 FR PIG 6X26 FDA Start: 11-02-2017 STENT,URETERAL PIGTAIL [id number] FDA Start: 10-15-2017 STENT,URETERAL 6 FR PIG 6X26 FDA Start: 11-02-2017 STENT,URETERAL PIGTAIL [id number] FDA Start: 10-15-2017 STENT,URETERAL 6 FR PIG 6X26 FDA Start: 11-02-2017 STENT,URETERAL PIGTAIL [id number] FDA Start: 10-15-2017 STENT,URETERAL 6 FR PIG 6X26 FDA Start: 11-02-2017 STENT,URETERAL PIGTAIL [id number] FDA Start: 10-15-2017 STENT,URETERAL 6 FR PIG 6X26 FDA Start: 11-02-2017 STENT,URETERAL PIGTAIL [id number] FDA Start: 10-15-2017 STENT,URETERAL 6 FR PIG 6X26 FDA Start: 11-02-2017 STENT,URETERAL PIGTAIL [id number] FDA Start: 10-15-2017 STENT,URETERAL 6 FR PIG 6X26 FDA Start: 11-02-2017 STENT,URETERAL PIGTAIL [id number] FDA Start: 10-15-2017 STENT,URETERAL 6 FR PIG 6X26 FDA Start: 11-02-2017 STENT,URETERAL PIGTAIL [id number] FDA Start: 10-15-2017 STENT,URETERAL 6 FR PIG 6X26 FDA Start: 11-02-2017 STENT,URETERAL PIGTAIL [id number] FDA Start: 10-15-2017 STENT,URETERAL 6 FR PIG 6X26 FDA Start: 11-02-2017 STENT,URETERAL PIGTAIL [id number] FDA Start: 10-15-2017 STENT,URETERAL 6 FR PIG 6X26 FDA Start: 11-02-2017 STENT,URETERAL PIGTAIL [id number] FDA Start: 10-15-2017 STENT,URETERAL 6 FR PIG 6X26 FDA Start: 11-02-2017 STENT,URETERAL PIGTAIL [id number] FDA Start: 10-15-2017 STENT,URETERAL 6 FR PIG 6X26 FDA Start: 11-02-2017 Goals Date Patient Goal Desired Activity /State Mental Status Date Assessment Result Facility 04-20-2025 Cognitive function Level Of Cons ciousness Awake;Alert;Appropriate;Follow s Commands [facility] Work Phone: Clinical Notes 12-25-2024 to 04-20-2025 Note Date & Type Note Facility 04-20-2025 Discharge summary [facility] 04-20-2025 Discharge summary Note Date/Time April 20, 2025 2:39pm [facility] Medical Records Department [address] [place] [address] Emergency Department Summary 04/20/25 MR#: [id number] Acct: [id number] Name: ODNNA YATES Rep #:[id number] : 1950 74 From: Dewayne Vázquez DO PCP: Dr. Olivier Olmstead MD Status:REG E R Location: ED HPI History of Present Illness Chief Complaint: Hypertension Narrative Narrative: Patient is a 74-year-old female past medical history of paroxysmal atrial fibrillation, Charcot Stefania tooth disease hypertension, depression who presents to the emergency department chief complaint of elevated blood pressure. Patientstates that she has noted that last several days her blood pressure had been running high she notes that she tried to call her curtain inspector they did not answer therefore she came here for further evaluation management. States that when her blood pressure is elevated she knows that she has a headache associatedwith this. Patient states that she has been taking her medications as prescribed not missing doses [facility] Medical History (Updated 04/20/25 @ 14:[address] Dewayne Vázquez, DO) Muscular dystrophy Paroxysmal atrial tachycardia Non-rheumatic mitral regurgitation Nonrheumatic mitral (valve) prolapse Paroxysmal atrial fibrillation History of kidney stones Left bundle branch block Rwmdzsz-Kvtlu-Ymdfn disease Hypotension Depression Home Medications ?Medication ?Instructions ?Recorded ?Last Taken ?Type levothyroxine 125 mcg tablet 125 mcg PO QODAY 11/28/23 04/19/25 History diltiazem HCl 120 mg 120 mg PO QDAY HEART #90 cap s 07/24/24 04/19/25 Rx capsule,extended release 24 hr flecainide 100 mg tablet 100 mg PO BID HEART #180 tab s 07/24/24 04/20/25 Rx Bifidobacterium longum 10 million 10,000,000 cell PO D AILY 04/20/25 04/19/25 History cell capsule (Align (B.longum)) citalopram 10 mg tablet 10 mg PO DAILY 04/20/2503/30 History levothyroxine 112 mcg tablet 112 mcg PO QODAY 04/20/25 04/20/25 History loratadine 10 mg capsule (Allergy 10 mg PO DAILY 04/2004/19/25 History Relief (loratadine)) Allergy/AdvReac Type Severity Reaction Status Date / Time prednisone Allergy Intermediate Rash Verified 04/20/25 09:43 adhesive AdvReac Rash Verified 04/20/25 09:43 Family History Mother Hypertension Breast cancer Brother Colon cancer Sister Hypertension Daughter CAD (coronary artery disease) Father Colon cancer Surgical History History of lithotripsy (~10/2017) Hx of cholecystectomy H/O: section H/O: hysterectomy Hx of knee surgery Hx of foot surgery History of tonsillectomy Social History Smoking Status: Former smoker how long ago did patient quit smokin years ago alcohol intake: current alcohol intake frequency: a few times a month caffeine: Yes Type: coffee Number of servings: 2 ROS ROS ED ROS Narrative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
[2025-06-07 23:00] VITALS: BP 148/87; PULSE 122; RESP 16; O2SAT 93
[2025-06-08] VITALS: BP 137/96; PULSE 120; RESP 16; O2SAT 94
[2025-06-08 00:43] LABS: Troponin T High Sens 2 HR 19 ng/L (<=14)
[2025-06-08 01:00] VITALS: BP 153/96; PULSE 120; RESP 16; O2SAT 97
[2025-06-08 01:57] LABS: Troponin T High Sens 4 HR 17 ng/L (<=14)
[2025-06-08 02:00] VITALS: BP 129/86; PULSE 123; RESP 17; O2SAT 93
--- NOTE | 2025-06-08 02:33 | EKG12_ITS ---
Test Reason : RHYTHM CHANGE Blood Pressure : */* mmHG Vent. Rate : 117 BPM Atrial Rate : 117 BPM P-R Int : 120 ms QRS Dur : 142 ms QT Int : 378 ms P-R-T Axes : * -50 -14 degrees QTcB Int : 527 ms atrial flutter with 2:1 block Left axis deviation Non-specific intra-ventricular conduction block Minimal voltage criteria for LVH, may be normal variant ( [place] product ) T wave abnormality, consider anterior ischemia Abnormal ECG Confirmed by JIM RHODES, MAGI ([id number]), newspaper editor GRISELDA HUERTA ([id number]) on 06/08/2025 1:17:01 PM Referred By: Carlos Darnell Confirmed By: MAGI FERNANDEZ MD
[2025-06-08 02:42] VITALS: BP 124/92; PULSE 118; RESP 18; TEMP 36.6; O2SAT 94
== END 2025-06-08 02:54 | disposition home or self-care (01) ==
PROVIDERS: Emergency Provider Emergency Medicine; PCP Family Medicine Geriatric Medicine; Referring Provider Emergency Medicine; Visit Provider Emergency Medicine
DX: I48.0 Paroxysmal atrial fibrillation (principal); I44.7 Left bundle-branch block, unspecified; G60.0 Hereditary motor and sensory neuropathy; Z87.891 Personal history of nicotine dependence; Z79.899 Other long term (current) drug therapy
CPT/HCPCS: 71045; 80048; 83735; 84443; 84484; 85025; 85610; 85730; 93005; 96374; 96375; 99284; A4216

== ENCOUNTER → 2025-06-11 | Outpatient (CLI) | payer MEDICARE, SELFPAY ==
--- NOTE | 2025-06-11 10:03 | ECHOD_ITS ---
Reason For Study Reason For Study: CHEST PAIN Procedure This was a 2D Doppler, Color Flow transthoracic echocardiogram. Exam performed in department. Left Ventricle Normal LV size. Mild concentric left ventricular hypertrophy. The left ventricular ejection fraction is 35 %. There is mild to moderate global hypokinesis of the left ventricle. Right Ventricle Normal RV size. Normal systolic function. Atria The left atrium is moderately enlarged. Normal right atrium. Mitral Valve Normal mitral valve. Mild (1+) eccentric mitral valve insufficiency. Tricuspid Valve Normal tricuspid valve. Mild (1+) tricuspid valve insufficiency. Aortic Valve Normal aortic valve. Trisinus/trileaflet aortic valve. Pulmonic Valve Normal pulmonic valve. Great Vessels Normal aortic root. The pulmonary artery is normal size. Inferior vena cava collapse with respiration. Pericardium/Pleural No pericardial effusion. MMode/2D Measurements & Calculations LVIDd: 4.8 cm IVSd: 1.4 cm LVOT diam: 2.0 cm LVIDs: 3.4 cm LVPWd: 1.4 cm LVOT area: 3.0 cm2 RVDd: 3.3 cm FS: 29.2 % Ao root diam: 3.3 cm LAV(MOD-bp): 104.8 ml LVAd ap4: 20.5 cm2 LAV(MOD-bp) Indexed: 58.4 ml/m2 LVLd ap4: 6.4 cm LAV(MOD-sp2): 94.3 ml EDV(MOD-sp4): 54.5 ml LAV(MOD-sp4): 102.3 ml EDV(sp4-el): 55.9 ml LVAs ap4: 16.9 cm2 LVLs ap4: 6.3 cm ESV(MOD-sp4): 36.7 ml ESV(sp4-el): 38.4 ml EF(MOD-sp4): 32.6 % EF(sp4-el): 31.2 % SV(MOD-sp4): 17.8 ml SV(sp4-el): 17.4 ml LA A4 area: 29.2 cm2 SI(MOD-sp4): 9.9 ml/m2 LA dimension(2D): 5.3 cm RA A4 area: 13.7 cm2 Doppler Measurements & Calculations MV E max gilda: 114.9 cm/sec Ao V2 max: 122.4 cm/sec LV V1 max: 88.7 cm/sec Ao max P.0 mmHg LV V1 max P.2 mmHg Ao V2 mean: 89.0 cm/sec LV V1 mean P.8 mmHg Ao mean P.6 mmHg LV V1 mean: 63.0 cm/sec Ao V2 VTI: 23.7 cm LV V1 VTI: 17.0 cm AV (velocity ratio): 0.72 SHOBHA(I,D): 2.2 cm2 SHOBHA(V,D): 2.2 cm2 SV(LVOT): 51.0 ml PA V2 max: 81.5 cm/sec TR max gilda: 289.3 cm/sec PA V2 mean: 53.4 cm/sec TR max P.5 mmHg ECHO/Echo Complete Interpretation Summary Normal LV size. The left ventricular ejection fraction is 35 %. Mild concentric left ventricular hypertrophy. There is mild to moderate global hypokinesis of the left ventricle. The left atrium is moderately enlarged. Ordering Physician: Arnie Garcia Referring Physician: Arnie Garcia Performed By: Julissa Dubose RCS
== END | disposition home or self-care (01) ==
LOC: CVS 10:03
PROVIDERS: PCP Family Medicine Geriatric Medicine; Referring Provider Student in an Organized Health Care Education/Training Program; Visit Provider Student in an Organized Health Care Education/Training Program
DX: I48.0 Paroxysmal atrial fibrillation (principal)
CPT/HCPCS: 93225; 93226; 93306

== ENCOUNTER 2025-06-23 13:47 | Inpatient (IN) | payer MEDICARE, SELFPAY ==
[2025-06-23] VITALS (25 sets, daily range): BP systolic 114–159; BP diastolic 53–107; PULSE 78–130; RESP 12–25; TEMP 36.6–36.8; O2SAT 92–100; BMI 29.5; BMI 29.1
--- NOTE | 2025-06-23 13:47 | EKG12_ITS ---
Test Reason : C/P Blood Pressure : */* mmHG Vent. Rate : 139 BPM Atrial Rate : 223 BPM P-R Int : * ms QRS Dur : 114 ms QT Int : 282 ms P-R-T Axes : * -56 123 degrees QTcB Int : 429 ms Atrial flutter with variable A-V block Left axis deviation Minimal voltage criteria for LVH, may be normal variant ( [place] product ) Septal infarct , age undetermined Inferior infarct , age undetermined ST & T wave abnormality, consider lateral ischemia Abnormal ECG Confirmed by JAMES TREJO ([id number]), advertising editor GRISELDA HUERTA ([id number]) on 06/24/2025 1:53:10 PM Referred By: ED Confirmed By: JAMES TREJO
--- NOTE | 2025-06-23 13:47 | RAD_ITS ---
PROCEDURE: CHEST 1 VIEW (PORTABLE) 06/23/2025 REASON FOR EXAM: CHEST PAIN TECHNIQUE: Frontal view of the chest. COMPARISON: Chest x-ray of 06/07/2025. RAD/Chest 1 View (Portable) IMPRESSION: Prior cervical surgery is again seen. Bilateral shoulder degenerative changes, jbyiv-zvdluln-jmzk-left, are again not ed. Generalized osteopenia is seen. No acute osseous change is seen. Lungs are hypoinflated, but appear clear of acute disease, and unchanged. No a cute pneumonic process is noted. No pleural effusion is clearly evident. No pneumothorax is seen. The cardiomediastinal silhouette is stable, with a partially calcified and tort uous aorta noted. Probable mild cardiomegaly, stable in appearance. Reading Location: [place] [id number]
[2025-06-23 14:16] LABS: Hematocrit 42.4 % (37-47); Hemoglobin 14.3 g/dL (12.0-15.0); Immature Granulocytes Count 0.020 X10^3/uL (0.0-0.0); Mean Corp Hgb Conc 33.7 g/dL (32-36); Mean Corpuscular Volume 98.1 fL (81-99); Mean Platelet Vol. 10.6 fl (6.2-12.0); NRBC Flagged by Analyzer 0 % (0-5); Platelet Count 225 K/mm3 (150-450); RBC Distribution Width CV 13.1 % (11.6-14.6); RBC Distribution Width SD 46.6 fl (35.1-43.9); Red Blood Count 4.32 M/mm3 (4.2-5.4); White Blood Count 6.6 K/mm3 (4.4-11.0)
[2025-06-23 14:47] LABS: Anion Gap 14 (5-15); BUN 17 mg/dL (4-19); BUN/Creat Ratio 24.7 RATIO (10-20); Calcium,Total 9.4 mg/dL (7.6-11.0); Carbon Dioxide 20.3 mmol/L (21.0-32.0); Chloride 104 mmol/L (98-108); Glucose 103 mg/dL (70-99); Potassium 4.0 mmol/L (3.3-5.1); Troponin T High Sensitivity 12 ng/L (<=14)
--- NOTE | 2025-06-23 15:16 | EX.ED.DYSGE1 ---
HPI History of Present Illness Chief Complaint: Chest Pain Narrative Narrative: Patient is a 74-year-old female with a past medical history of muscular dystrophy, paroxysmal H tachycardia/atrial fibrillation, left bundle branch block, Charcot's Stefania tooth disease, hypertension, depression who presented to the emergency department with a chief complaint of chest pressure and concern for atrial fibrillation. Patient states that she recently had seen a nurse practitioner through the [facility] and notes that she was taken off her flecainide and her Cardizem and was placed on metoprolol. She states that she started taking the metoprolol and noted that this started messing with her stomach and notes that this is one of the medications that can mess with her Dcsffgp-Lmayi-Kfcjc disease. She states that they called back to the cardiology team and they advised her to take her Cardizem again and discontinue the metoprolol. She states that she notes that her heart rate has been increasing and with the pressure in her chest she came here for further evaluation management. According to the family member at bedside she notes that she just recently started taking her Eliquis as she had not been taking this previously as she was concerned about bruising that she bruises very easily. Family bedside notes that her family doctor stressed the high risk of stroke for the patient herself therefore she started taking this. [facility] Medical History (Updated 06/23/25 @ 19:[address] Dewayne Vázquez, ) Anxiety Osteoporosis Kidney stones Former smoker Atrial fibrillation Muscular dystrophy Paroxysmal atrial tachycardia Non-rheumatic mitral regurgitation Nonrheumatic mitral (valve) prolapse Paroxysmal atrial fibrillation History of kidney stones Left bundle branch block Xncztgw-Fmkba-Jubjv disease Hypotension Depression Home Medications ?Medication ?Instructions ?Recorded ?Last Taken ?Type levothyroxine 125 mcg tablet 125 mcg PO QODAY 11/28/23 06/22/25 History levothyroxine 112 mcg tablet 112 mcg PO QODAY 04/20/25 06/23/25 History diltiazem HCl 120 mg 120 mg PO QDAY #90 caps 06/22/25 06/22/25 Rx capsule,extended release 24 hr (Cartia XT) apixaban 5 mg tablet (Eliquis) 5 mg PO BID 06/23/25 06/23/25 History citalopram 10 mg tablet 10 mg PO DAILY 06/23/25 06/22/25 History cyclobenzaprine 10 mg tablet 10 mg PO DAILY PRN pain 06/23/25 Unknown History metoprolol tartrate 50 mg tablet 50 mg PO Q12H 06/23/25 06/22/25 History Allergy/AdvReac Type Severity Reaction Status Date / Time prednisone Allergy Intermediate Rash Verified 05/18/25 09:40 adhesive AdvReac Rash Verified 05/18/25 09:40 Family History Mother Hypertension Breast cancer Brother Colon cancer Sister Hypertension Daughter CAD (coronary artery disease) Father Colon cancer Surgical History (Updated 06/23/25 @ 19:35 by Bridget Brian) Hx of thyroidectomy History of appendectomy History of lithotripsy (~10/2017) Hx of cholecystectomy H/O: section H/O: hysterectomy Hx of knee surgery Hx of foot surgery History of tonsillectomy Social History Smoking Status: Former smoker how long ago did patient quit smokin years ago alcohol intake: current alcohol intake frequency: a few times a month caffeine: Yes Type: coffee Number of servings: 2 ROS ROS ED ROS Narrative Constitutional: Denies any fevers, chills, headaches, lightness, dizziness Eyes: Denies change in vision double vision blurry vision Cardiovascular: Complains of chest pressure as noted above and palpitations Respiratory: Denies coughing wheezing shortness of breath Abdomen: Denies abdominal pain nausea vomiting diarrhea : Denies any urinary symptoms Neurological: Denies numbness, weakness, tingling Musculoskeletal: Denies back pain Skin: Denies any rashes or lesions EXAM Physical Exam Narrative Exam Narrative: General: Patient lying in bed rest comfortably not appear to be acute distress Head: Atraumatic, normocephalic Eyes: PERRL bilaterally, EOMI bilateral, no conjunctival injection noted Neck: Soft, supple, trachea midline Cardiovascular: Patient has an irregular irregular rhythm and tachycardic Respiratory: Clear to auscultation bilaterally Abdomen: Soft, nondistended, nontender to palpation Extremities: +5/5 strength noted in the bilateral lower extremities Neurological: Patient following commands knew that she was at [facility] year is 2024 Skin: Warm, dry, tact no rashes or lesions noted Const Vital Signs: 06/23/25 13:48 06/23/25 14:25 06/23/25 14:26 Temperature 97.8 F Temperature Source Temporal Pulse Rate 78 Respiratory Rate 20 H Respiratory Effort Normal Non-Labored Blood Pressure 159/82 H Blood Pressure Mean 107 Blood Pressure Source Blood Pressure Position Blood Pressure Location Pulse Ox 97 Oxygen Delivery Method Room Air Nasal Cannula 06/23/25 14:47 06/23/25 15:00 06/23/25 16:00 Temperature Temperature Source Pulse Rate 111 H 130 H 78 Respiratory Rate 12 25 H Respiratory Effort Blood Pressure 132/78 H 114/77 124/80 H Blood Pressure Mean 96 89 94 Blood Pressure Source Blood Pressure Position Blood Pressure Location Pulse Ox 97 97 100 Oxygen Delivery Method 06/23/25 16:23 06/23/25 16:28 06/23/25 17:00 Temperature Temperature Source Pulse Rate 112 H 110 H 109 H Respiratory Rate 16 Respiratory Effort Blood Pressure 129/53 H 117/66 133/76 H Blood Pressure Mean 78 83 95 Blood Pressure Source Blood Pressure Position Blood Pressure Location Pulse Ox 99 99 99 Oxygen Delivery Method 06/23/25 18:00 06/23/25 19:00 06/23/25 19:40 Temperature 98.3 F Temperature Source Oral Pulse Rate 111 H 112 H 112 H Respiratory Rate 18 18 18 Respiratory Effort Blood Pressure 146/76 H 122/80 H 140/89 H Blood Pressure Mean 99 94 106 Blood Pressure Source Monitor Blood Pressure Position Semi-Fowlers Blood Pressure Location Left Arm Pulse Ox 100 100 98 Oxygen Delivery Method Room Air Room Air Room Air 06/23/25 19:41 Temperature 98.3 F Temperature Source Pulse Rate 112 H Respiratory Rate 18 Respiratory Effort Blood Pressure 140/89 H Blood Pressure Mean 106 Blood Pressure Source Blood Pressure Position Blood Pressure Location Pulse Ox 97 Oxygen Delivery Method MDM MDM MDM Narrative Medical decision making narrative: Patient is a 74-year-old female who presents to the emergency department chief complaint chest pressure and concern for A-fib with elevated heart rate. On the differential diagnosis includes but not limited to A-fib with RVR secondary to medication adjustments, pneumonia, pneumothorax, ACS, electrolyte abnormality. Once the workup is obtained reviewed she will be reevaluated. Patient CBC reviewed which showed no leukocytosis white blood count was 6.6, he was 14.3, plate count was 8225. Patient INR normal 1.2, PT of 15.5. Patient sodium is 130, potassium normal at 4, creatinine was 0.67. Patient's magnesium level normal at 2, troponin was 12 with a delta troponin of 13. Patient's EKG showed atrial flutter with variable block with a rate of 139 bpm, proBNP of 65. Patient's chest x-ray reviewed by myself and by radiology and showed prior cervical surgery noted bilateral shoulder degenerative changes noted no acute cardiopulmonary processes she does have a partially calcified and tortuous aorta noted. I did add on a CTA of the chest. CTA of the chest reviewed and showed no pulmonary arterial emboli identified no aneurysm dissection cardiomegaly with predominantly left atrial enlargement no airspace consolidation edema or pleural effusions. Early on in the visit I reached out to on-call state archivist Dr. Denis and had discussion in regards to medications to control her rate as she had been previously on flecainide Cardizem with recent medication adjustments she had these discontinued and was placed on metoprolol. However she was not tolerating metoprolol as she was having a lot of abdominal and GI symptoms from this therefore they told her to take her Cardizem again which did not work. I did review her echocardiogram which showed a ejection fraction of 35% this was done on 06/11/2025 which also showed mild to moderate global hypokinesis of the left ventricle. I wanted discussed with him in regards to Cardizem bolus given her heart failure and not using amiodarone as she has not been compliant with her Eliquis. He is agreeable with this he states that we can do a Cardizem bolus as well as digoxin load. Patient was observed here in the emergency department and she remains in a tachycardic rate with atrial flutter of 110-115 range despite these medications. I reached out again to Dr. Denis and he is recommending a Cardizem drip and admission to the hospital for rate control. Cardizem drip was ordered. Cardizem drip was ordered and will discuss case with hospitalist for admission. Did discuss case with hospitalist Dr. Bolivar who accept the patient. Did notify the patient and daughter at bedside all question concerns answered. Lab Data Labs: Laboratory Results - last 24 hr 06/23/25 06/23/25 06/23/25 14:06 15:50 17:50 WBC 6.6 RBC 4.32 Hgb 14.3 Hct 42.4 MCV 98.1 MCH 33.1 H MCHC 33.7 RDW Std Deviation 46.6 H RDW Coeff of Viktoria 13.1 Plt Count 225 MPV 10.6 Immature Gran % (Auto) 0.300 Neut % (Auto) 69.2 Lymph % (Auto) 19.8 [place] % (Auto) 7.9 Eos % (Auto) 2.3 Baso % (Auto) 0.5 Absolute Neuts (auto) 4.5 Absolute Lymphs (auto) 1.30 Nucleated RBC % 0 PT 15.5 H INR 1.2 APTT 27.6 Sodium 138 Potassium 4.0 Chloride 104 Carbon Dioxide 20.3 L Anion Gap 14 BUN 17 Creatinine 0.67 L Est GFR (MDRD) Non-Af 91 BUN/Creatinine Ratio 24.7 H Glucose 103 H Calcium 9.4 Magnesium 2.0 Troponin T High Sens 12 D Troponin T Hi Sens 2 Hr 13 Troponin T Hi Sens 4Hr Cancelled NT pro BNP II 685 Radiography Diagnostic Testing: Clinical Impression(s) from Imaging Studies Chest X-Ray 06/23/25 13:47 IMPRESSION: Prior cervical surgery is again seen. Bilateral shoulder degenerative changes, [id number], are again noted. Generalized osteopenia is seen. No acute osseous change is seen. Lungs are hypoinflated, but appear clear of acute disease, and unchanged. No acute pneumonic process is noted. No pleural effusion is clearly evident. No pneumothorax is seen. The cardiomediastinal silhouette is stable, with a partially calcified and tortuous aorta noted. Probable mild cardiomegaly, stable in appearance. Reading Location: [facility] Chest CTA 06/23/25 15:35 IMPRESSION: 1. No pulmonary arterial emboli identified. 2. No thoracic aortic aneurysm or dissection. 3. Cardiomegaly with predominantly left atrial enlargement. 4. No airspace consolidation/edema, or pleural effusions. Reading Location: [facility] Discharge Plan Triage Chief Complaint: Chest Pain ED Provider: Dewayne Vázquez Dx/Rx/DC Orders Clinical Impression: Atrial flutter with rapid ventricular response, Chest pain, Muscular dystrophy Prescriptions: No Action levothyroxine 125 mcg tablet 125 mcg PO QODAY Patient Comments: alternating with 112mcg Rx Instructions: qod levothyroxine 112 mcg tablet 112 mcg PO QODAY Patient Comments: alternating with 125mcg cyclobenzaprine 10 mg tablet 10 mg PO DAILY PRN (Reason: pain) citalopram 10 mg tablet 10 mg PO DAILY metoprolol tartrate 50 mg tablet 50 mg PO Q12H Eliquis 5 mg tablet 5 mg PO BID diltiazem HCl [Cartia XT] 120 mg capsule,extended release 24hr 120 mg PO QDAY Qty: 90 3RF Primary Care Provider: Olivier Olmstead Chi Referrals: Olivier Olmstead Chi, MD [Primary Care Provider] - Print Language: Yoruba Disposition Disposition: Acute Care Hospital [facility]
--- NOTE | 2025-06-23 15:35 | CT_ITS ---
PROCEDURE: CTA CHEST W/WO CONTRAST 06/23/2025 REASON FOR EXAM: ABNORMAL XR CHEST A. FIB RVR TECHNIQUE: CTA CHEST W/WO CONTRAST Multiplanar Sagittal and Coronal images were obtained. 3D post processing was performed. CONTRAST: Isovue 370 VOLUME: 100 mL One or more dose reduction techniques were used (e.g., Automated exposure control, adjustment of the mA and/or kV according to patient size, use of iterative reconstruction technique). RADIATION DOSE SUMMARY: DLP: 275.5 mGycm COMPARISON: CTA chest 08/02/2020. FINDINGS: PULMONARY VESSELS: No filling defects suspicious for pulmonary arterial emboli identified, although the subsegmental branches are not adequately evaluated due to respiratory motion artifact. Prominent caliber of the central pulmonary vessels may reflect pulmonary arterial hypertension. THORACIC AORTA: Mildly tortuous but normal in caliber. No aneurysm or dissection. Mild atherosclerotic disease. Conventional three-vessel aortic arch branching. HEART: Cardiomegaly with predominantly left atrial enlargement. No pericardial effusion. Mild coronary artery and mitral annulus calcifications. MEDIASTINUM: Unremarkable. No lymphadenopathy. LUNGS/PLEURA: Respiratory motion artifact. Mild bibasilar dependent atelectasis. 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 No airspace consolidation or findings of pulmonary edema. No pneumothorax or pleural effusions. The central airways are patent. UPPER ABDOMEN: No significant abnormality. BONES: Subacute-chronic fracture of the sternal manubrium with callus formation. Multilevel degenerative changes of the spine with evidence of DISH, and slightly exaggerated thoracic kyphosis. Partially imaged lower cervical ACDF metallic hardware. Bilateral glenohumeral joint arthrosis. CT/CTA Chest W/WO Contrast IMPRESSION: 1. No pulmonary arterial emboli identified. 2. No thoracic aortic aneurysm or dissection. 3. Cardiomegaly with predominantly left atrial enlargement. 4. No airspace consolidation/edema, or pleural effusions. Reading Location: [id number]
[2025-06-23] MEDS: Digoxin 250 MCG/ML Ampul 500 MCG IV (16:22)
[2025-06-23 16:25] LABS: Prothrombin Time (Protime)PT. 15.5 SECONDS (11.7-14.9)
[2025-06-23 16:26] LABS: Partial Thromboplast Time 27.6 Seconds (24.1-36.2)
[2025-06-23 16:31] LABS: Magnesium 2.0 mg/dL (1.5-2.2); Pro- Brain NATRIURETIC PEPTIDE 685 pg/mL (<=1800)
--- NOTE | 2025-06-23 16:49 | EKG12_ITS ---
Test Reason : REPEAT Blood Pressure : */* mmHG Vent. Rate : 110 BPM Atrial Rate : 220 BPM P-R Int : * ms QRS Dur : 110 ms QT Int : 442 ms P-R-T Axes : 35 -52 153 degrees QTcB Int : 598 ms Critical Test Result: Long QTc Atrial flutter with 2:1 A-V conduction Left axis deviation Minimal voltage criteria for LVH, may be normal variant ( [employer] product ) Septal infarct , age undetermined Inferior infarct , age undetermined ST & T wave abnormality, consider lateral ischemia Abnormal ECG Confirmed by JAMES TREJO ([id number]), digital editor GRISELDA HUERTA ([id number]) on 06/24/2025 1:52:47 PM Referred By: Confirmed By: JAMES TREJO
[2025-06-23 17:03] LABS: Troponin T High Sens 2 HR 13 ng/L (<=14)
[2025-06-23] MEDS: Diltiazem 125 MG in Dextrose 5%-Water (100mL Bag) 100 ML IV (19:40)
--- NOTE | 2025-06-23 19:50 | PCM.HP.STD ---
[facility] General Date of Admission: 06/23/25 Date of Service: 06/23/25 Chief Complaint: Chest Pain and AFIB with RVR. HPI Narrative AYDE YATES, is a 74 F with a past medical history of essential hypertension; on metoprolol BID, hypothyroidism; on levothyroxine, overweight; with BMI of 29.5 this admission, remote history of tobacco abuse (quit ~1983), paroxysmal atrial flutter; on diltiazem plus apixaban BID followed by [facility], history of chronic systolic CHF; with LVEF ~35% with global HK of the Left ventricle (06/11/2025), history of LBBB, history of non-rheumatic mitral valve prolapse/regurgitation, history of Charcot-Stefania Tooth disease, depression; on citalopram, history of renal calculi, muscular dystrophy, osteoporosis and OA; with lumbar spondylosis and back pain who presents to [facility] ER complaining of chest pain and atrial fibrillation; with RVR. Ms. Yates reports she was recently taken of flecainide and diltiazem in favor of metoprolol with subsequent stomach pain - with patient also noting that metoprolol is known to potentially exacerbate Charcot-Stefania Tooth disease. She then recontacted [facility] and she was then instructed to take her diltiazem and stop her metoprolol. Unfortunately, in spite of these interventions she developed a subsequent increased heart rate with a corresponding sensation of chest pressure so she decided to come in for further evaluation and management. A family member informed the Er provider that she had recently started taking her apixaban due to concerns about bruising - but she started taking it after her PCP emphasized her elevated risk of CVA. She denies associated fever, chills, vomiting, diarrhea, constipation, dysuria, hematuria, headache or rash. In the ER she was diagnosed with PAF; with RVR up to ~139 bpm with ER physician speaking to mammography supervisor on-call due to patient's intolerance to metoprolol and ineffectiveness of oral diltiazem with patient recommended to receive IV diltiazem bolus and not using amiodarone due to her CHF and recent restarting of DOAC. She was then admitted to PCU under observation status for ongoing care for a stay that is expected to be less than 2 midnights. [facility] Medical History Anxiety Osteoporosis Kidney stones Former smoker Atrial fibrillation Muscular dystrophy Paroxysmal atrial tachycardia Non-rheumatic mitral regurgitation Nonrheumatic mitral (valve) prolapse Paroxysmal atrial fibrillation History of kidney stones Left bundle branch block Bsknqka-Tckng-Jngiw disease Hypotension Depression Home Medications ?Medication ?Instructions ?Recorded ?Last Taken ?Type levothyroxine 125 mcg tablet 125 mcg PO QODAY 11/28/23 06/22/25 History levothyroxine 112 mcg tablet 112 mcg PO QODAY 04/20/25 06/23/25 History diltiazem HCl 120 mg 120 mg PO QDAY #90 caps 06/22/25 06/22/25 Rx capsule,extended release 24 hr (Cartia XT) apixaban 5 mg tablet (Eliquis) 5 mg PO BID 06/23/25 06/23/25 History citalopram 10 mg tablet 10 mg PO DAILY 06/23/25 06/22/25 History cyclobenzaprine 10 mg tablet 10 mg PO DAILY PRN pain 06/23/25 Unknown History metoprolol tartrate 50 mg tablet 50 mg PO Q12H 06/23/25 06/22/25 History Allergy/AdvReac Type Severity Reaction Status Date / Time prednisone Allergy Intermediate Rash Verified 06/23/25 21:07 ciprofloxacin AdvReac Intermediate Nausea/Vom/ Verified 06/23/25 21:07 Diarrhea adhesive AdvReac Rash Verified 06/23/25 21:07 Family History Mother Hypertension Breast cancer Brother Colon cancer Sister Hypertension Daughter CAD (coronary artery disease) Father Colon cancer Surgical History Hx of thyroidectomy History of appendectomy History of lithotripsy (~10/2017) Hx of cholecystectomy H/O: section H/O: hysterectomy Hx of knee surgery Hx of foot surgery History of tonsillectomy Social History Smoking Status: Former smoker how long ago did patient quit smokin years ago alcohol intake: current alcohol intake frequency: a few times a month caffeine: Yes Type: coffee Number of servings: 2 ROS ROS Narrative Review of Systems: Constitutional: Patient denies fever or chills. Eyes: Patient denies change in vision or discharge from eyes. ENT: Patient denies runny nose, sore throat or ear pain. Resp: Patient denies shortness of breath or cough. CV: Patient admits to chest pressure and palpitations coinciding with a flutter with RVR as per HPI. GI: Patient denies abdominal pain, nausea, vomiting, diarrhea or constipation. : Patient denies dysuria or hematuria. MSK: Patient denies arthralgias or myalgias. Skin: Patient denies rash, abscess, wounds or jaundice. Psych: Patient denies symptoms of uncontrolled depression or anxiety. Neuro: Patient denies headache, paresthesias or focal neurologic deficits. Allergy: Patient denies lip swelling, tongue swelling or urticaria. Hematology: Patient denies easy bleeding or easy bruisability. Endocrinology: Patient denies polyuria, polydipsia, polyphagia or heat/cold intolerance. 14 point ROS otherwise negative except for positives noted above in HPI. Vital Signs Vital Signs Vital Signs: 06/23/25 13:48 06/23/25 14:25 06/23/25 14:26 Temperature 97.8 F Temperature Source Temporal Pulse Rate 78 Respiratory Rate 20 H Respiratory Effort Normal Non-Labored Blood Pressure 159/82 H Blood Pressure Mean 107 Blood Pressure Source Blood Pressure Position Blood Pressure Location Pulse Ox 97 Oxygen Delivery Method Room Air Nasal Cannula 06/23/25 14:47 06/23/25 15:00 06/23/25 16:00 Temperature Temperature Source Pulse Rate 111 H 130 H 78 Respiratory Rate 12 25 H Respiratory Effort Blood Pressure 132/78 H 114/77 124/80 H Blood Pressure Mean 96 89 94 Blood Pressure Source Blood Pressure Position Blood Pressure Location Pulse Ox 97 97 100 Oxygen Delivery Method 06/23/25 16:23 06/23/25 16:28 06/23/25 17:00 Temperature Temperature Source Pulse Rate 112 H 110 H 109 H Respiratory Rate 16 Respiratory Effort Blood Pressure 129/53 H 117/66 133/76 H Blood Pressure Mean 78 83 95 Blood Pressure Source Blood Pressure Position Blood Pressure Location Pulse Ox 99 99 99 Oxygen Delivery Method 06/23/25 18:00 06/23/25 19:00 06/23/25 19:40 Temperature 98.3 F Temperature Source Oral Pulse Rate 111 H 112 H 112 H Respiratory Rate 18 18 18 Respiratory Effort Blood Pressure 146/76 H 122/80 H 140/89 H Blood Pressure Mean 99 94 106 Blood Pressure Source Monitor Blood Pressure Position Semi-Fowlers Blood Pressure Location Left Arm Pulse Ox 100 100 98 Oxygen Delivery Method Room Air Room Air Room Air 06/23/25 19:41 Temperature 98.3 F Temperature Source Pulse Rate 112 H Respiratory Rate 18 Respiratory Effort Blood Pressure 140/89 H Blood Pressure Mean 106 Blood Pressure Source Blood Pressure Position Blood Pressure Location Pulse Ox 97 Oxygen Delivery Method Weight Weight: 166 lb 7.184 oz Body Mass Index (BMI) 29.5 Physical Exam Const alert, oriented x3 and no apparent distress General Appearance: cooperative HEENT normocephalic, head/scalp atraumatic, hearing grossly normal bilaterally and moist oral mucous membranes Eyes PERRL, EOMs intact bilaterally and conjunctivae normal Neck no lymphadenopathy, supple and no JVD Resp normal respiratory effort, no retractions, no use of accessory muscles and clear to auscultation bilaterally Cardio Cardio Narrative: Irregularly irregular @ ~110 bpm. GI normal to inspection, nondistended, normoactive bowel sounds, soft to palpation, non-tender and non-distended Extremity normal to inspection, full ROM and no clubbing, cyanosis or edema Skin Skin Narrative: Patient has no evidence of rash, abscess, wounds or jaundice. Neuro oriented x3, CN's II-XII intact bilaterally, moves all extremities and no focal motor deficits Sensorium / Orientation: awake, alert, oriented to person, oriented to place and oriented to time Speech: speech normal Psych affect normal Results Medical Records Data Attestation: I reviewed the patient's medical records Lab / Micro Data Attestation: I reviewed the patient's lab results. 06/23/25 14:06 06/23/25 14:06 Labs: Laboratory Results - last 24 hr 06/23/25 14:06: WBC 6.6, RBC 4.32, Hgb 14.3, Hct 42.4, MCV 98.1, MCH 33.1 H, MCHC 33.7, RDW Std Deviation 46.6 H, RDW Coeff of Viktoria 13.1, Plt Count 225, MPV 10.6, Immature Gran % (Auto) 0.300, Neut % (Auto) 69.2, Lymph % (Auto) 19.8, [place] % (Auto) 7.9, Eos % (Auto) 2.3, Baso % (Auto) 0.5, Absolute Neuts (auto) 4.5, Absolute Lymphs (auto) 1.30, Nucleated RBC % 0, PT 15.5 H, INR 1.2, APTT 27.6, Sodium 138, Potassium 4.0, Chloride 104, Carbon Dioxide 20.3 L, Anion Gap 14, BUN 17, Creatinine 0.67 L, Est GFR (MDRD) Non-Af 91, BUN/Creatinine Ratio 24.7 H, Glucose 103 H, Calcium 9.4, Magnesium 2.0, Troponin T High Sens 12 D, NT pro BNP II 685 06/23/25 15:50: Troponin T Hi Sens 2 Hr 13 06/23/25 17:50: Troponin T Hi Sens 4Hr Cancelled Imaging Radiology Impression Chest X-Ray 06/23/25 13:47 IMPRESSION: Prior cervical surgery is again seen. Bilateral shoulder degenerative changes, [id number], are again noted. Generalized osteopenia is seen. No acute osseous change is seen. Lungs are hypoinflated, but appear clear of acute disease, and unchanged. No acute pneumonic process is noted. No pleural effusion is clearly evident. No pneumothorax is seen. The cardiomediastinal silhouette is stable, with a partially calcified and tortuous aorta noted. Probable mild cardiomegaly, stable in appearance. Reading Location: [facility] Chest CTA 06/23/25 15:35 IMPRESSION: 1. No pulmonary arterial emboli identified. 2. No thoracic aortic aneurysm or dissection. 3. Cardiomegaly with predominantly left atrial enlargement. 4. No airspace consolidation/edema, or pleural effusions. Reading Location: [id number] Assessment & Plan Assessment/Plan (1) Atrial flutter with rapid ventricular response: (2) Chest pain: QUALIFIERS: Chest pain type: unspecified Qualified Code(s): R07.9 - Chest pain, unspecified (3) Adverse drug reaction: QUALIFIERS: Encounter type: initial encounter Qualified Code(s): T50.905A - Adverse effect of unspecified drugs, medicaments and biological substances, initial encounter (4) Vxfiysx-Bwooe-Zwzlz disease: (5) Muscular dystrophy: (6) Overweight (BMI 25.0-29.9): PLAN: Plan 1. PAF; with RVR up to ~139 bpm; on diltiazem plus apixaban BID followed by [facility] - Admit to PCU under observation status. Continue IV diltiazem and avoid beta-blockers to prevent exacerbating GI side effects. Give acetaminophen prn for pain or fever. Give ondansetron IV prn for nausea and vomiting. Finally, we will consult [facility] to see this patient on-rounds in the AM for further recommendations with help appreciated in advance. 2. Adverse Drug Reaction; to metoprolol with GI upset likely triggering #1 - Avoid beta-blockers and continue IV diltiazem as noted above. 3. History of chronic systolic CHF; with LVEF ~35% with global HK of the Left Ventricle (06/11/2025) complicating #1 & #2 - Stable with no signs of volume overload and NT pro-BNP II of 685 pg/mL present on admission. 4. History of Charcot-Stefania Tooth disease with Muscular Dystropy adding to the medical complexity of #1 - #3 - Stable. PT/OT and Case Management to consult and treat on-rounds in the AM for further recommendations with help appreciated in advance. 5. Overweight; with BMI of 29.5 this admission adding to the burden of disease outlined from #1 - #4 - Weight loss will be recommended. 6. Essential hypertension; on metoprolol BID - Hold metoprolol and give hydralazine IV prn for systolic blood pressure > 160 mmHg. 7. Hypothyroidism; on levothyroxine - Resume levothyroxine as before and check TSH. 8. Remote history of tobacco abuse (quit ~1983) - Noted. 9. History of LBBB - Noted. 10. History of non-rheumatic mitral valve prolapse/regurgitation - Noted. 11. Depression; on citalopram - Maintain present therapy. 12. History of renal calculi - Noted with no evidence of recurrence at this time. 13. Osteoporosis - Stable. 14. OA; with lumbar spondylosis and back pain - Give acetaminophen prn as outlined in #1. 15. DVT prophylaxis - Patient already on apixaban for #1 which will be continued. Total time: Approximately (but not less than) 70 minutes. Charges/Coding Visit Charges OBSV E&M: 64104 Observ/hosp same date L2
[2025-06-23] MEDS: 0.9% Normal Saline (1000mL) 1,000 ML 70 ML IV (21:32)
[2025-06-23] MEDS: APIXABAN 5 MG TABLET PO (21:32)
--- OUTSIDE RECORDS SUMMARY | 2025-06-23 22:26 | XMS RPT_ITS | CCD ---
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 [Mass/Vol] 19 mg/dL Normal 4-19 [facility] Comment on above: Performed By: #### L 500.4100, L501.9520, L506.1001, L100.0100, L500.4050 #### [facility] [address] [place], [address] Basophil percentageOrdered B y: Carlos Facundoleon on 06-07-2024 Basophils/100 WBC (Bld) 0.3 % 0-1 [facility] CBC W/Diff, Automatedon 05-29-2024 Absolute Lymph 2.66 X10 3/uL Normal 0.83-4.51 [facility] Comment on above: Performed By: #### L 500.4100, L501.9520, L506.1001, L100.0100, L500.4050 #### [facility] [address] [place], [address] Absolute Neut 3.9 X10 3/uL Normal 2.0-7.7 [facility] Comment on above: Performed By: #### L 500.4100, L501.9520, L506.1001, L100.0100, L500.4050 #### [facility] [address] [place], [address] Basophils/100 WBC (Bld) 0.3 % Normal 0-1 [facility] Comment on above: Performed By: #### L 500.4100, L501.9520, L506.1001, L100.0100, L500.4050 #### [facility] [address] [place], [address] Eosinophils/100 WBC (Bld) 2.4 % Normal 0-5 [facility] Comment on above: Performed By: #### L 500.4100, L501.9520, L506.1001, L100.0100, L500.4050 #### [facility] [address] [place], [address] Erythrocyte distribution width (RBC) [Ratio] 13.6 % Normal 11.6-14.6 [facility] Comment on above: Performed By: #### L 500.4100, L501.9520, L506.1001, L100.0100, L500.4050 #### [facility] [address] [place], [address] Hematocrit (Bld) [Volume fraction] 44.5 % Normal 37-47 [facility] Comment on above: Performed By: #### L 500.4100, L501.9520, L506.1001, L100.0100, L500.4050 #### [facility] [address] [place], [address] Hemoglobin (Bld) [Mass/Vol] 14.9 g/dL Normal 12.0-15.0 [facility] Comment on above: Performed By: #### L 500.4100, L501.9520, L506.1001, L100.0100, L500.4050 #### [facility] [address] [place], [address] IG% 0.500 Normal 0.0-0.9 [facility] Comment on above: Result Comment: IG% - Immature Granulocytes (promyelocytes, myelocytes and metamyelocytes) > 1% indicates that a LEFT SHIFT is Present. Performed By: #### L 500.4100, L501.9520, L506.1001, L100.0100, L500.4050 #### [facility] [address] [place], [address] Lymphocytes/100 WBC (Bld) 36.1 % Normal 19-41 [facility] Comment on above: Performed By: #### L 500.4100, L501.9520, L506.1001, L100.0100, L500.4050 #### [facility] [address] [place], [address] MCH (RBC) [Entitic mass] 32.6 pg High 27.0-32.0 [facility] Comment on above: Performed By: #### L 500.4100, L501.9520, L506.1001, L100.0100, L500.4050 #### [facility] [address] [place], [address] MCHC (RBC) [Mass/Vol] 33.5 g/dL Normal 32-36 [facility] Comment on above: Performed By: #### L 500.4100, L501.9520, L506.1001, L100.0100, L500.4050 #### [facility] [address] [place], [address] MCV (RBC) [Entitic vol] 97.4 fL Normal 81-99 [facility] Comment on above: Performed By: #### L 500.4100, L501.9520, L506.1001, L100.0100, L500.4050 #### [facility] [address] [place], [address] Monocytes/100 WBC (Bld) 7.3 % Normal 0-10 [facility] Comment on above: Performed By: #### L 500.4100, L501.9520, L506.1001, L100.0100, L500.4050 #### [facility] [address] [place], [address] Neutrophils/100 WBC (Bld) 53.4 % Normal 47-70 [facility] Comment on above: Performed By: #### L 500.4100, L501.9520, L506.1001, L100.0100, L500.4050 #### [facility] [address] [place], [address] Nucleated RBC (Bld) [#/Vol] 0 10*3/uL Normal 0-5 [facility] Comment on above: Performed By: #### L 500.4100, L501.9520, L506.1001, L100.0100, L500.4050 #### [facility] [address] [place], [address] Platelet mean volume (Bld) [Entitic vol] 10.9 fL Normal 6.2-12.0 [facility] Comment on above: Performed By: #### L 500.4100, L501.9520, L506.1001, L100.0100, L500.4050 #### [facility] [address] [place], [address] Platelets (Bld) [#/Vol] 261 10*3/uL Normal 150-450 [facility] Comment on above: Performed By: #### L 500.4100, L501.9520, L506.1001, L100.0100, L500.4050 #### [facility] [address] [place], [address] RBC (Bld) [#/Vol] 4.57 10*6/uL Normal 4.2-5.4 [facility] Comment on above: Performed By: #### L 500.4100, L501.9520, L506.1001, L100.0100, L500.4050 #### [facility] [address] [place], [address] RDW SD 49.0 fl High 35.1-43.9 [facility] Comment on above: Performed By: #### L 500.4100, L501.9520, L506.1001, L100.0100, L500.4050 #### [facility] [address] [place], [address] WBC (Bld) [#/Vol] 7.4 10*3/uL Normal 4.4-11.0 [facility] Comment on above: Performed By: #### L 500.4100, L501.9520, L506.1001, L100.0100, L500.4050 #### [facility] [address] [place], [place], [address] Carbon dioxide, total [Moles /volume] in Central venous bloodOrdered By: Carlos Darnell on 06-07-2025 CO2 [Moles/Vol] 23.0 mmol/L 21.0-32.0 [facility] Chest 1 View (Portable)on Chest 1 View (Portable) [facility] Imaging Services [address] [place], [place] [address] Chest 1 View (Portable) MR#: [id number] Acct: [id number] Name: DONNA YATES Rep #: [id number] : 1950 F 74 From: Jonathan West MD PCP: Dr. Olivier Olmstead MD Status: REG ER Study: Chest 1 View (Portable) Date of Exam: 06/07/25 Exam# [id number] Ordering Dr: Carlos Darnell DO PROCEDURE: CHEST 1 VIEW (PORTABLE) 06/07/2025 REASON FOR EXAM: CHEST PAIN TECHNIQUE: Frontal view of the chest. COMPARISON: 04/20/2025 FINDINGS: Hardware: None. Heart: Heart size is mildly enlarged but stable. Lungs: Slightly improved mild pulmonary vascular congestion. No definite focal consolidation or pneumothorax. Bones: The bones are unremarkable. RAD/Chest 1 View (Portable) IMPRESSION: Stable mild cardiomegaly with slightly improved mild pulmonary vascular congestion. Reading [facility] CC: Dr. Carlos Darnell DO; Dr. Olivier Olmstead MD [employer] G: Signed Normal [facility] Chloride assayOrdered By: Maciel Darnell on 06-07-2025 Chloride [Moles/Vol] 104 mmol/L 98-108 [facility] Emergency Department Summary on 06-07-2025 Emergency Department Summary [facility] Medical Records Department [address] [place] [address] Emergency Department Summary 06/07/25 MR#: [id number] Acct: [id number] Name: DONNA YATES Rep #: [id number] : 1950 74 From: Carlos Darnell DO PCP: Dr. Olivier Olmstead MD Status:REG ER Location: ED HPI History of Present Illness Chief Complaint: Palpitations Informant: patient Onset/Context/Timing Onset: Yesterday Context: Sudden Onset Timing: Continuous Quality: Irregular, pressure Location: Chest Worsened by: Nothing Relieved by: Nothing Narrative Narrative: Patient presents with palpitations that began yesterday. Patient states it began rather suddenly. Patient states it has been constant. Patient states it feels like her heart is beating irregular. Patient has a history of paroxysmal atrial fibrillation. Patient states nothing makes her symptoms better and nothing makes it worse. Patient denies any shortness of breath. Patient does admit to a mild cough. Patient denies any nausea or vomiting. Patient denies any diaphoresis. [facility] Medical History Muscular dystrophy Paroxysmal atrial tachycardia Non-rheumatic mitral regurgitation Nonrheumatic mitral (valve) prolapse Paroxysmal atrial fibrillation History of kidney stones Left bundle branch block Fzrzkdv-Mavon-Mkimc disease Hypotension Depression Home Medications ???Medication ???Instructions ???Recorded ???Last Taken ???Type levothyroxine 125 mcg tablet 125 mcg PO QODAY 11/28/23 04/19/25 History diltiazem HCl 120 mg 120 mg PO QDAY HEART #90 caps 06/3004/19/25 Rx capsule,extended release 24 hr flecainide 100 mg tablet 100 mg PO BID HEART #180 tabs 06/3004/20/25 Rx levothyroxine 112 mcg tablet 112 mcg PO QODAY 04/20/25 04/20/25 History Allergy/AdvReac Type Severity Reaction Status Date / Time prednisone Allergy Intermediate Rash Verified 05/18/25 09:40 adhesive AdvReac Rash Verified 05/18/25 09:40 Family History Mother Hypertension Breast cancer Brother [...] Number of servings: 2 ROS ROS ED Constitutional Constitutional ED: Denies chills or fever(s) Eyes Eyes: Denies blurry vision or change in vision ENT ENT ED: Denies rhinorrhea or sore throat Cardiovascular Cardiovascular: Reports chest pain and palpitations Respiratory/Chest Respiratory/Chest: Reports cough; Denies dyspnea Gastrointestinal Gastrointestinal: Denies nausea or vomiting Genitourinary Genitourinary ED: Denies dysuria or hematuria Musculoskeletal Musculoskeletal: Denies back pain or neck pain Integumentary Denies abscess or rash Neurologic Neurologic: Reports headache(s); Denies weakness Allergic/Immunologic Allergic/Immunologic ED: Denies mouth swelling or urticaria EXAM Physical Exam Const Vital Signs: 06/07/25 20:03 06/07/25 20:56 06/07/25 21:00 Temperature 97.9 F Temperature Source Oral Pulse Rate 115 H 109 H Respiratory Rate 20 H 18 Respiratory Effort Normal Non-Labored Respiratory Pattern Normal Blood Pressure 174/98 H 158/94 H Blood Pressure Mean 123 115 Pulse Ox 94 95 Oxygen Delivery Method Room Air Room Air 06/07/25 21:47 06/07/25 22:00 06/07/25 23:00 Temperature Temperature Source Pulse Rate 114 H 122 H Respiratory Rate 16 16 Respiratory Effort Respiratory Pattern Blood Pressure 154/92 H 148/87 H Blood Pressure Mean 112 107 Pulse Ox 94 95 93 Oxygen Delivery Method Room Air Room Air Room Air 06/08/25 00:00 06/08/25 01:00 06/08/25 02:00 Temperature Temperature Source Pulse Rate 120 H 120 H 123 H Respiratory Rate 16 16 17 Respiratory Effort Respiratory Pattern Blood Pressure 137/96 H 153/96 H 129/86 H Blood Pressure Mean 109 115 100 Pulse Ox 94 97 93 Oxygen Delivery Method Room Air Room Air Room Air 06/08/25 02:42 Temperature 98 F Temperature Source Pulse Rate 118 H Respiratory Rate 18 Respiratory Effort Respiratory Pattern Blood Pressure 124/92 H Blood Pressure Mean 102 Pulse Ox 94 Oxygen Del (more content not included)... Normal [facility] Eosinophil percentageOrdered By: Carlos Darnell on 06-07-2025 Eosinophils/100 WBC (Bld) 2.4 % 0-5 [facility] Erythrocyte distribution wid th ratioOrdered By: Carlos Darnell on 06-07-2025 Erythrocyte distribution width (RBC) [Ratio] 13.6 % 11.6-14.6 [facility] Erythrocyte distribution wid th standard deviationOrdered By: Carlos Darnell on 06-07-2025 Erythrocyte distribution width (RBC) [Ratio] 49.0 fl High 35.1-43.9 [facility] Glomerular filtration rate ( GFR) estimation/1.73 sq m using serum, plasma, or whole bOrdered By: Carlos Darnell on 06-07-2025 GFR/1.73 sq M.predicted among non-blacks MDRD (S/P/Bld) [Vol rate/Area] 79 mL/min/{1.73_m2} >60 [facility] Comment on above: mL/min/1.73m2 CKD-EP I Creatinine Equation (2020) Hematocrit Auto (Bld) [Volum e fraction]Ordered By: Carlos Darnell on 06-07-2025 Hematocrit (Bld) [Volume fraction] 44.5 % 37-47 [facility] Hemoglobin measurementOrdere d By: Carlos Darnell on 06-07-2025 Hemoglobin (Bld) [Mass/Vol] 14.9 g/dL 12.0-15.0 [facility] Immature granulocytes/100 WB C Auto (Bld)Ordered By: Carlos Darnell 06-07-2025 Immature granulocytes/100 WBC (Bld) 0.500 % 0.0-0.9 [facility] Comment on above: IG% - Immature Granu locytes (promyelocytes, myelocytes and metamyelocytes) > 1% indicates that a LEFT SHIFT is Present. International normalized rat io (INR) calculationOrdered By: Carlos Darnell on 06-07-2025 INR Coag (Bld) [Relative time] 0.9 {INR} [facility] L501.4021on 06-07-2025 Trop T High Sen 15 ng/L High <=14 [facility] Comment on above: Performed By: #### L 500.4100, L501.9520, L506.1001, L100.0100, L500.4050 #### [facility] [address] [place], [address] MCV (mean corpuscular volume ) determinationOrdered By: Carlos Darnell on 06-07-2025 MCV (RBC) [Entitic vol] 97.4 fL 81-99 [facility] Magnesiumon 06-07-2025 Magnesium [Mass/Vol] 2.3 mg/dL High 1.5-2.2 [facility] Comment on above: Performed By: #### L 500.4100, L501.9520, L506.1001, L100.0100, L500.4050 #### [facility] [address] [place], [address] Magnesium measurement (mass/ volume)Ordered By: Carlos Darnell on 06-07-2025 Magnesium (Unsp spec) [Mass/Vol] 2.3 mg/dL High 1.5-2.2 [facility] Mean corpuscular hemoglobin (MCH) determinationOrdered By: Carlos Darnell on 06-07-2025 MCH (RBC) [Entitic mass] 32.6 pg High 27.0-32.0 [facility] Mean corpuscular hemoglobin concentration (MCHC) determinationOrdered By: Carlos Darnell on 06-07-2025 MCHC (RBC) [Mass/Vol] 33.5 g/dL 32-36 [facility] Mean platelet volume determi nationOrdered By: Carlos Darnell on 06-07-2025 Platelet mean volume (Bld) [Entitic vol] 10.9 fL 6.2-12.0 [facility] Monocyte percentageOrdered B y: Carlos Darnell on 06-07-2025 Monocytes/100 WBC (Bld) 7.3 % 0-10 [facility] Neutrophil percentageOrdered By: Carlos Darnell on 06-07-2025 Neutrophils/100 WBC (Bld) 53.4 % 47-70 [facility] Nucleated red blood cell per centageOrdered By: Carlos Darnell on 06-07-2025 Nucleated RBC/100 WBC (Bld) [Ratio] 0 % 0-5 [facility] Partial Thromboplast Timeon 06-07-2025 aPTT Coag (Bld) [Time] 20.6 s Low 24.1-36.2 [facility] Comment on above: Performed By: #### L 500.4100, L501.9520, L506.1001, L100.0100, L500.4050 #### [facility] [address] [place], [address] Platelet countOrdered By: Maciel Darnell on 06-07-2025 Platelets (Bld) [#/Vol] 261 10*3/uL 150-450 [facility] Potassium measurement (mass/ volume)Ordered By: Carlos Darnell on 06-07-2025 Potassium (Unsp spec) [Mass/Vol] 4.3 mmol/L 3.3-5.1 [facility] Prothrombin Time w/INRon INR Coag (PPP) [Relative time] 0.9 {INR} Normal [facility] Comment on above: Performed By: #### L 500.4100, L501.9520, L506.1001, L100.0100, L500.4050 #### [facility] [address] [place], [address] PT Coag (PPP) [Time] 12.5 s Normal 11.7-14.9 [facility] Comment on above: Performed By: #### L 500.4100, L501.9520, L506.1001, L100.0100, L500.4050 #### [facility] [address] [place], [address] Prothrombin timeOrdered By: Carlos Darnell on 06-07-2025 PT Coag (PPP) [Time] 12.5 s 11.7-14.9 [facility] RBC Auto (Bld) [#/Vol]Ordere d By: Carlos Darnell on 06-07-2025 RBC (Bld) [#/Vol] 4.57 10*6/uL 4.2-5.4 [facility] Serum creatinine measurement (mass/volume)Ordered By: Carlos Darnell on 06-07-2025 Creatinine [Mass/Vol] 0.78 mg/dL 0.70-1.20 [facility] Serum glucose measurement (m ass/volume)Ordered By: Carlos Darnell on 06-07-2025 Glucose [Mass/Vol] 95 mg/dL 70-99 [facility] Serum or plasma calcium hesham urement (mass/volume)Ordered By: Carlos Darnell on 06-07-2025 Calcium [Mass/Vol] 9.3 mg/dL 7.6-11.0 [facility] Serum or plasma urea nitroge n measurement (mass/volume)Ordered By: Carlos Darnell on 06-07-2025 Urea nitrogen [Mass/Vol] 19 mg/dL 4-19 [facility] Sodium levelOrdered By: Carlos Darnell on 06-07-2025 Sodium [Moles/Vol] 138 mmol/L 133-145 [facility] TSH DL <= 0.005 mIU/L QnOrde red By: Carlos Darnell on 06-07-2025 TSH Qn 0.995 uIU/mL 0.300-4.200 [facility] Thyroid Stim Hormone (TSH)on 06-07-2025 TSH 0.995 uIU/mL Normal 0.300-4.200 [facility] Comment on above: Performed By: #### L 500.4100, L501.9520, L506.1001, L100.0100, L500.4050 #### [facility] [address] [place], [place], [id number] Troponin T.cardiac [Mass/vol ume] in Serum or Plasma by High sensitivity methodOrdered By: Carlos Darnell on 06-07-2025 Troponin T.cardiac High sensitivity method [Mass/Vol] 19 ng/L High <14 [facility] Troponin T.cardiac High sensitivity method [Mass/Vol] 15 ng/L High <14 [facility] Comment on above: Delta: 13 on 5-1020 White blood cell (WBC) count Ordered By: Carlos Darnell on 06-07-2025 WBC (Bld) [#/Vol] 7.4 10*3/uL 4.4-11.0 [facility] L/S Spine Min 4 Viewson L/S Spine Min 4 Views [facility] Imaging Services [address] [place] [address] L/S Spine Min 4 Views MR#: [id number] Acct: [id number] Name: DONNA YATES Rep #: [id number] : 1950 F 74 From: Chance mcrae MD PCP: Dr. Olivier Olmstead MD Status: REG CLI Study: L/S Spine Min 4 Views Date of Exam: 06/02/25 Exam# [id number] Ordering Dr: Olivier Olmstead MD PROCEDURE: L/S SPINE MIN 4 VIEWS 06/02/2025 REASON FOR EXAM: LOW BACK PAIN TECHNIQUE: L/S SPINE MIN 4 VIEWS COMPARISON: 06/03/2024. FINDINGS: S shaped degenerative scoliosis. Mild osteopenia. There are diffuse spondylotic changes. Findings are demonstrated to by diffuse disc space narrowing, osteophyte formation and degenerative endplate sclerosis. There is diffuse facet joint arthropathy with secondary bilateral neural foramina narrowing. No fracture or dislocation is seen. No aggressive lytic or blastic bony lesion is noted. RAD/L/S Spine Min 4 Views IMPRESSION: Spondylosis. Findings have mildly progressed. Reading Location[facility] [address] CC: Dr. Olivier Olmstead MD [employer] G: Signed Normal [facility] Cardiology Visit Reporton Cardiology Visit Report [facility] [address] [place], [place] [address] OFFICE VISIT Date of Service: 05/18/25 MR#: [id number] Acct: [id number] Name: DONNA YATES Rep #: [id number] : 1950 Provider: JAGRUTI Hernandes Age/Sex: 74/F Location: [facility] [place] Status: Signed Agree with current plan. HPI [...] showed no atrial fibrillation. She presented to [place] emergency department with concerns of hypertension noted [...] Oximetry (%) 95 Intake Visit Reasons: S/P [facility] 04/20 Airport Guide Required: No Is patient in pain?: No [...] of kidney stones Left bundle branch block Fhffrrs-Yaxjg-Cimkj disease Hypotension Depression Surgical History History of [...] Pain: Yes Palpita (more content not included)... [facility] 12 Lead EKGon 04-20-2025 12 Lead EKG [facility] Cardiovascular Services [address] [place] [address] 12 Lead EKG 04/20/25 1431 MR#: [id number] Acct: [id number] Name: DONNA YATES Rep #: [id number] : 1950 74 From: Jose Gomez MD [...] for LVH, may be normal variant ( Sage product ) Abnormal ECG Confirmed by JOSE GOMEZ MD ([id number]), newspaper editor managing GRISELDA HUERTA ([id number]) on 04/21/2025 11:12:16 AM Referred By: Confirmed By: JOSE GOMEZ MD 04/21/25 111 Date Jose Gomez MD CC: Dr. Olivier Olmstead MD; Dr. Dewayne Vázquez DO Signed [facility] 12 Lead EKG [facility] Cardiovascular Services [address] [facility] [place] [address] 12 Lead EKG 04/20/25 0948 MR#: [id number] Acct: [id number] Name: DONNA YATES Rep #: [id number] : 1950 74 From: Jose Gomez MD [...] 525 ms Atrial fibrillation ivcd Confirmed by JASON RHODES, JOSE ([id number]), newspaper editor managing GRISELDA HUERTA ([id number]) on 04/21/2025 11:11:19 AM Referred By: Confirmed By: JOSE GOMEZ MD 04/21/25 1111 Date Jose Gomez MD CC: Dr. Olivier Olmstead MD; Dr. Dewayne Vázquez DO Signed Normal [facility] Absolute lymphocyte countOrd ered By: ED PROVIDER on 04-20-2025 Lymphocytes Auto (Unsp spec) [#/Vol] 1.23 10*3/uL 0.83-4.51 [facility] Absolute neutrophil countOrd ered By: ED PROVIDER on 04-20-2025 Neutrophils (Bld) [#/Vol] 4.3 10*3/uL 2.0-7.7 [facility] Anion gap in Serum or Plasma Ordered By: ED PROVIDER on 04-20-2025 Anion gap [Moles/Vol] 10 mmol/L 5-15 [facility] Automated lymphocyte count a s percentage of total leukocytesOrdered By: ED PROVIDER on 04-20-2025 Lymphocytes/100 WBC Auto (Unsp spec) 20.5 % -41 [facility] BUN/creatinine ratioOrdered By: ED PROVIDER on 04-20-2025 Urea nitrogen/Creatinine [Mass ratio] 27.6 mg/mg High - [facility] Basic Metabolic Profile (BMP )on 04-20-2025 BUN/CRE 27.6 RATIO High [facility] Comment on above: Performed By: #### L 500.4100, L501.9520, L506.1001, L100.0100, L500.4050 #### [facility] [address] [place], [address] Calcium [Mass/Vol] 8.9 mg/dL Normal 7.6-11.0 [facility] Comment on above: Performed By: #### L 500.4100, L501.9520, L506.1001, L100.0100, L500.4050 #### [facility] [address] [place], [address] Chloride [Moles/Vol] 105 mmol/L Normal 98-108 [facility] Comment on above: Performed By: #### L 500.4100, L501.9520, L506.1001, L100.0100, L500.4050 #### [facility] [address] [place], [address] CO2 [Moles/Vol] 23.5 mmol/L Normal 21.0-32.0 [facility] Comment on above: Performed By: #### L 500.4100, L501.9520, L506.1001, L100.0100, L500.4050 #### [facility] [address] [place], [address] Creatinine [Mass/Vol] 0.65 mg/dL Low 0.70-1.20 [facility] Comment on above: Performed By: #### L 500.4100, L501.9520, L506.1001, L100.0100, L500.4050 #### [facility] [address] [place], [address] GAP 10 Normal 5-15 [facility] Comment on above: Performed By: #### L 500.4100, L501.9520, L506.1001, L100.0100, L500.4050 #### [facility] [address] [place], [address] GFR/1.73 sq M.predicted among non-blacks MDRD (S/P/Bld) [Vol rate/Area] 91 mL/min/{1.73_m2} Normal >60 [facility] Comment on above: Result Comment: mL/m in/1.73m2 CKD-EPI Creatinine Equation (2020) Performed By: #### L 500.4100, L501.9520, L506.1001, L100.0100, L500.4050 #### [facility] [address] [place], [address] Glucose [Mass/Vol] 96 mg/dL Normal 70-99 [facility] Comment on above: Performed By: #### L 500.4100, L501.9520, L506.1001, L100.0100, L500.4050 #### [facility] [address] [place], [address] Potassium [Moles/Vol] 4.2 mmol/L Normal 3.3-5.1 [facility] Comment on above: Performed By: #### L 500.4100, L501.9520, L506.1001, L100.0100, L500.4050 #### [facility] [address] [place], [address] Sodium [Moles/Vol] 139 mmol/L Normal 133-145 [facility] Comment on above: Performed By: #### L 500.4100, L501.9520, L506.1001, L100.0100, L500.4050 #### [facility] [address] [place], [address] Urea nitrogen [Mass/Vol] 18 mg/dL Normal 4-19 [facility] Comment on above: Performed By: #### L 500.4100, L501.9520, L506.1001, L100.0100, L500.4050 #### [facility] [address] [place], [address] Basophil percentageOrdered B y: ED PROVIDER on 04-20-2024 Basophils/100 WBC (Bld) 0.3 % 0-1 [facility] CBC W/Diff, Automatedon 03-30 Absolute Lymph 1.23 X10 3/uL Normal 0.83-4.51 [facility] Comment on above: Performed By: #### L 500.4100, L501.9520, L506.1001, L100.0100, L500.4050 #### [facility] [address] [place], [address] Absolute Neut 4.3 X10 3/uL Normal 2.0-7.7 [facility] Comment on above: Performed By: #### L 500.4100, L501.9520, L506.1001, L100.0100, L500.4050 #### [facility] [address] [place], [address] Basophils/100 WBC (Bld) 0.3 % Normal 0-1 [facility] Comment on above: Performed By: #### L 500.4100, L501.9520, L506.1001, L100.0100, L500.4050 #### [facility] [address] [place], [address] Eosinophils/100 WBC (Bld) 2.3 % Normal 0-5 [facility] Comment on above: Performed By: #### L 500.4100, L501.9520, L506.1001, L100.0100, L500.4050 #### [facility] [address] [place], [address] Erythrocyte distribution width (RBC) [Ratio] 13.6 % Normal 11.6-14.6 [facility] Comment on above: Performed By: #### L 500.4100, L501.9520, L506.1001, L100.0100, L500.4050 #### [facility] [address] [place], [address] Hematocrit (Bld) [Volume fraction] 43.2 % Normal 37-47 [facility] Comment on above: Performed By: #### L 500.4100, L501.9520, L506.1001, L100.0100, L500.4050 #### [facility] [address] [place], [address] Hemoglobin (Bld) [Mass/Vol] 14.4 g/dL Normal 12.0-15.0 [facility] Comment on above: Performed By: #### L 500.4100, L501.9520, L506.1001, L100.0100, L500.4050 #### [facility] [address] [place], [address] IG% 0.200 Normal 0.0-0.9 [facility] Comment on above: Result Comment: IG% - Immature Granulocytes (promyelocytes, myelocytes and metamyelocytes) > 1% indicates that a LEFT SHIFT is Present. Performed By: #### L 500.4100, L501.9520, L506.1001, L100.0100, L500.4050 #### [facility] [address] [place], [address] Lymphocytes/100 WBC (Bld) 20.5 % Normal 19-41 [facility] Comment on above: Performed By: #### L 500.4100, L501.9520, L506.1001, L100.0100, L500.4050 #### [facility] [address] [place], [address] MCH (RBC) [Entitic mass] 32.7 pg High 27.0-32.0 [facility] Comment on above: Performed By: #### L 500.4100, L501.9520, L506.1001, L100.0100, L500.4050 #### [facility] [address] [place], [address] MCHC (RBC) [Mass/Vol] 33.3 g/dL Normal 32-36 [facility] Comment on above: Performed By: #### L 500.4100, L501.9520, L506.1001, L100.0100, L500.4050 #### [facility] [address] [place], [address] MCV (RBC) [Entitic vol] 98.0 fL Normal 81-99 [facility] Comment on above: Performed By: #### L 500.4100, L501.9520, L506.1001, L100.0100, L500.4050 #### [facility] [address] [place], [address] Monocytes/100 WBC (Bld) 5.7 % Normal 0-10 [facility] Comment on above: Performed By: #### L 500.4100, L501.9520, L506.1001, L100.0100, L500.4050 #### [facility] [address] [place], [address] Neutrophils/100 WBC (Bld) 71.0 % High 47-70 [facility] Comment on above: Performed By: #### L 500.4100, L501.9520, L506.1001, L100.0100, L500.4050 #### [facility] [address] [place], [address] Nucleated RBC (Bld) [#/Vol] 0 10*3/uL Normal 0-5 [facility] Comment on above: Performed By: #### L 500.4100, L501.9520, L506.1001, L100.0100, L500.4050 #### [facility] [address] [place], [address] Platelet mean volume (Bld) [Entitic vol] 10.3 fL Normal 6.2-12.0 [facility] Comment on above: Performed By: #### L 500.4100, L501.9520, L506.1001, L100.0100, L500.4050 #### [facility] [address] [place], [address] Platelets (Bld) [#/Vol] 233 10*3/uL Normal 150-450 [facility] Comment on above: Performed By: #### L 500.4100, L501.9520, L506.1001, L100.0100, L500.4050 #### [facility] [address] [place], [address] RBC (Bld) [#/Vol] 4.41 10*6/uL Normal 4.2-5.4 [facility] Comment on above: Performed By: #### L 500.4100, L501.9520, L506.1001, L100.0100, L500.4050 #### [facility] [address] [place], [address] RDW SD 49.3 fl High 35.1-43.9 [facility] Comment on above: Performed By: #### L 500.4100, L501.9520, L506.1001, L100.0100, L500.4050 #### [facility] [address] [place], [address] WBC (Bld) [#/Vol] 6.0 10*3/uL Normal 4.4-11.0 [facility] Comment on above: Performed By: #### L 500.4100, L501.9520, L506.1001, L100.0100, L500.4050 #### [facility] [address] [place], [address] Carbon dioxide, total [Moles /volume] in Central venous bloodOrdered By: ED PROVIDER on 04-20-2025 CO2 [Moles/Vol] 23.5 mmol/L 21.0-32.0 [facility] Chest PA and Lateralon 04-20 Chest PA and Lateral [facility] Imaging Services [address] [place] [address] Chest PA and Lateral MR#: [id number] Acct: [id number] Name: DONNA YATES Rep #: [id number] : 1950 F 74 From: Joshua Richardson MD PCP: Dr. Olivier Olmstead MD Status: PRE ER Study: Chest PA and Lateral Date of Exam: 04/20/25 Exam# [id number] Ordering Dr: Dewayne Vázquez DO PROCEDURE: CHEST [...] Olivier Olmstead MD; Dr. Dewayne Vázquez DO [employer] G: Signed Normal [facility] Chloride assayOrdered By: ED PROVIDER on 04-20-2025 Chloride [Moles/Vol] 105 mmol/L 98-108 [facility] Emergency Department Summary on 04-20-2025 Emergency Department Summary [facility] Medical Records Department [address] [place] [address] Emergency Department Summary 04/20/25 MR#: [id number] Acct: [id number] Name: DONNA YATSE Rep #: [id number] : 1950 74 From: Dewayne Vázquez DO [...] notes that she tried to call her mds nurse they did not answer therefore she came here for further evaluation management. States that when her blood pressure is elevated she knows that she has a headache associated with this. Patient states that she has been taking her medications as prescribed not missing doses [facility] Medical History (Updated 04/20/25 @ 14:[address] Dewayne Vázquez DO) Muscular dystrophy Paroxysmal atrial tachycardia Non-rheumatic mitral regurgitation Nonrheumatic mitral (valve) prolapse Paroxysmal atrial fibrillation History of kidney stones Left bundle branch block Daeiadm-Rmjyi-Ppscp disease Hypotension Depression Home Medications ???Medication ???Instructions [...] follow commands knew that she was at [facility] the year is 2024 Skin: Warm, dry, [...] Pattern Miroslava (more content not included)... Normal [facility] Eosinophil percentageOrdered By: ED PROVIDER on 04-20-2025 Eosinophils/100 WBC (Bld) 2.3 % 0-5 [facility] Erythrocyte distribution wid th ratioOrdered By: ED PROVIDER on 04-20-2025 Erythrocyte distribution width (RBC) [Ratio] 13.6 % 11.6-14.6 [facility] Erythrocyte distribution wid th standard deviationOrdered By: ED PROVIDER on 04-20-2025 Erythrocyte distribution width (RBC) [Ratio] 49.3 fl High 35.1-43.9 [facility] Glomerular filtration rate ( GFR) estimation/1.73 sq m using serum, plasma, or whole bOrdered By: ED PROVIDER on 04-20-2025 GFR/1.73 sq M.predicted among non-blacks MDRD (S/P/Bld) [Vol rate/Area] 91 mL/min/{1.73_m2} >60 [facility] Comment on above: mL/min/1.73m2 CKD-EP I Creatinine Equation (2020) Hematocrit Auto (Bld) [Volum e fraction]Ordered By: ED PROVIDER on 04-20-2025 Hematocrit (Bld) [Volume fraction] 43.2 % 37-47 [facility] Hemoglobin measurementOrdere d By: ED PROVIDER on 04-20-2025 Hemoglobin (Bld) [Mass/Vol] 14.4 g/dL 12.0-15.0 [facility] Immature granulocytes/100 WB C Auto (Bld)Ordered By: ED PROVIDER on 04-20-2025 Immature granulocytes/100 WBC (Bld) 0.200 % 0.0-0.9 [facility] Comment on above: IG% - Immature Granu locytes (promyelocytes, myelocytes and metamyelocytes) > 1% indicates that a LEFT SHIFT is Present. L499.0042on 04-20-2025 Trop T High Sen 12 ng/L Normal <=14 [facility] Comment on above: Performed By: #### L 499.0042 #### [facility] [address] [place], [address] L499.0043on 04-20-2025 Trop T High Sen Normal <=14 [facility] Comment on above: Result Comment: GERARDO ENT DISCHARGED. SPECIMEN NOT RECEIVED Performed By: #### L 500.4100, L501.9520, L506.1001, L100.0100, L500.4050 #### [facility] [address] [place], [address] L501.4021on 04-20-2025 Trop T High Sen 13 ng/L Normal <=14 [facility] Comment on above: Performed By: #### L 500.4100, L501.9520, L506.1001, L100.0100, L500.4050 #### [facility] [address] [place], [address] MCV (mean corpuscular volume ) determinationOrdered By: ED PROVIDER on 04-20-2025 MCV (RBC) [Entitic vol] 98.0 fL 81-99 [facility] Mean corpuscular hemoglobin (MCH) determinationOrdered By: ED PROVIDER on 04-20-2025 MCH (RBC) [Entitic mass] 32.7 pg High 27.0-32.0 [facility] Mean corpuscular hemoglobin concentration (MCHC) determinationOrdered By: ED PROVIDER on 04-20-2025 MCHC (RBC) [Mass/Vol] 33.3 g/dL 32-36 [facility] Mean platelet volume determi nationOrdered By: ED PROVIDER on 04-20-2025 Platelet mean volume (Bld) [Entitic vol] 10.3 fL 6.2-12.0 [facility] Monocyte percentageOrdered B y: ED PROVIDER on 04-20-2025 Monocytes/100 WBC (Bld) 5.7 % 0-10 [facility] Neutrophil percentageOrdered By: ED PROVIDER on 04-20-2025 Neutrophils/100 WBC (Bld) 71.0 % High 47-70 [facility] Nucleated red blood cell per centageOrdered By: ED PROVIDER on 04-20-2025 Nucleated RBC/100 WBC (Bld) [Ratio] 0 % 0-5 [facility] Platelet countOrdered By: ED PROVIDER on 04-20-2025 Platelets (Bld) [#/Vol] 233 10*3/uL 150-450 [facility] Potassium measurement (mass/ volume)Ordered By: ED PROVIDER on 04-20-2025 Potassium (Unsp spec) [Mass/Vol] 4.2 mmol/L 3.3-5.1 [facility] RBC Auto (Bld) [#/Vol]Ordere d By: ED PROVIDER on 04-20-2025 RBC (Bld) [#/Vol] 4.41 10*6/uL 4.2-5.4 [facility] Serum creatinine measurement (mass/volume)Ordered By: ED PROVIDER on 04-20-2025 Creatinine [Mass/Vol] 0.65 mg/dL Low 0.70-1.20 [facility] Serum glucose measurement (m ass/volume)Ordered By: ED PROVIDER on 04-20-2025 Glucose [Mass/Vol] 96 mg/dL 70-99 [facility] Serum or plasma calcium hesham urement (mass/volume)Ordered By: ED PROVIDER on 04-20-2025 Calcium [Mass/Vol] 8.9 mg/dL 7.6-11.0 [facility] Serum or plasma urea nitroge n measurement (mass/volume)Ordered By: ED PROVIDER on 04-20-2025 Urea nitrogen [Mass/Vol] 18 mg/dL 4-19 [facility] Sodium levelOrdered By: RAND WALTON on 04-20-2025 Sodium [Moles/Vol] 139 mmol/L 133-145 [facility] Troponin T.cardiac [Mass/vol ume] in Serum or Plasma by High sensitivity methodOrdered By: Dewayne Vázquez on 04-20-2025 Troponin T.cardiac High sensitivity method [Mass/Vol] 12 ng/L <14 [facility] Troponin T.cardiac [Mass/vol ume] in Serum or Plasma by High sensitivity methodOrdered By: ED PROVIDER on 04-20-2025 Troponin T.cardiac High sensitivity method [Mass/Vol] 13 ng/L <14 [facility] White blood cell (WBC) count Ordered By: ED PROVIDER on 04-20-2025 WBC (Bld) [#/Vol] 6.0 10*3/uL 4.4-11.0 [facility] CT Chest, Abd, Pel w/Contras ton 04-06-2025 CT Chest, Abd, Pel w/Contrast [facility] Imaging Services [address] [place], [place] [address] CT Chest, Abd, Pel w/Contrast MR#: [id number] Acct: [id number] Name: DONNA YATES Rep #: [id number] : 1950 F 74 From: Anna Bolanos nd, MD PCP: Dr. Olivier Olmstead MD Status: REG CLI Study: CT Chest, Abd, Pel w/Contrast Date of Exam: Exam# [id number] Ordering Dr: Olivier Olmstead MD PROCEDURE: CT [...] effusion or pneumothorax. Bones: Bilateral shoulder arthrosis, npplp-[id number]-oqgb-left. Exaggerated kyphosis of the thoracic spine with [...] splenomegaly, which may represent fibrosis/cirrhosis. Reading Location: [id number] CC: Dr. Olivier Olmstead MD [employer] G: Signed Normal [facility] Absolute lymphocyte countOrd ered By: Olivier Olmstead on 12-31-2024 Lymphocytes Auto (Unsp spec) [#/Vol] 1.13 10*3/uL 0.83-4.51 [facility] Absolute neutrophil countOrd ered By: Olivier Olmstead on 12-31-2024 Neutrophils (Bld) [#/Vol] 2.9 10*3/uL 2.0-7.7 [facility] Anion gap in Serum or Plasma Ordered By: Olivier Olmstead on 12-31-2024 Anion gap [Moles/Vol] 15 mmol/L 5-15 [facility] Automated lymphocyte count a s percentage of total leukocytesOrdered By: Olivier Olmstead on 12-31-2024 Lymphocytes/100 WBC Auto (Unsp spec) 24.8 % 19-41 [facility] BUN/creatinine ratioOrdered By: Olivier Olmstead on 12-31-2024 Urea nitrogen/Creatinine [Mass ratio] 27.7 mg/mg High 10-20 [facility] Basophil percentageOrdered B y: Olivier Olmstead on 12-31-2024 Basophils/100 WBC (Bld) 0.4 % 0-1 [facility] Bilirubin, totalOrdered By: Olivier Olmstead on 12-31-2024 Bilirubin [Mass/Vol] 0.53 mg/dL 0.00-1.30 [facility] CBC W/Diff, Automatedon Absolute Lymph 1.13 X10 3/uL Normal 0.83-4.51 [facility] Comment on above: Performed By: #### L 500.4100, L501.9520, L506.1001, L100.0100, L500.4050 #### [facility] [address] [place], [address] Absolute Neut 2.9 X10 3/uL Normal 2.0-7.7 [facility] Comment on above: Performed By: #### L 500.4100, L501.9520, L506.1001, L100.0100, L500.4050 #### [facility] [address] [place], [address] Basophils/100 WBC (Bld) 0.4 % Normal 0-1 [facility] Comment on above: Performed By: #### L 500.4100, L501.9520, L506.1001, L100.0100, L500.4050 #### [facility] [address] [place], [address] Eosinophils/100 WBC (Bld) 2.9 % Normal 0-5 [facility] Comment on above: Performed By: #### L 500.4100, L501.9520, L506.1001, L100.0100, L500.4050 #### [facility] [address] [place], [address] Erythrocyte distribution width (RBC) [Ratio] 13.4 % Normal 11.6-14.6 [facility] Comment on above: Performed By: #### L 500.4100, L501.9520, L506.1001, L100.0100, L500.4050 #### [facility] [address] [place], [address] Hematocrit (Bld) [Volume fraction] 45.1 % Normal 37-47 [facility] Comment on above: Performed By: #### L 500.4100, L501.9520, L506.1001, L100.0100, L500.4050 #### [facility] [address] [place], [address] Hemoglobin (Bld) [Mass/Vol] 14.9 g/dL Normal 12.0-15.0 [facility] Comment on above: Performed By: #### L 500.4100, L501.9520, L506.1001, L100.0100, L500.4050 #### [facility] [address] [place], [address] IG% 0.200 Normal 0.0-0.9 [facility] Comment on above: Result Comment: IG% - Immature Granulocytes (promyelocytes, myelocytes and metamyelocytes) > 1% indicates that a LEFT SHIFT is Present. Performed By: #### L 500.4100, L501.9520, L506.1001, L100.0100, L500.4050 #### [facility] [address] [place], [address] Lymphocytes/100 WBC (Bld) 24.8 % Normal 19-41 [facility] Comment on above: Performed By: #### L 500.4100, L501.9520, L506.1001, L100.0100, L500.4050 #### [facility] [address] [place], [address] MCH (RBC) [Entitic mass] 32.4 pg High 27.0-32.0 [facility] Comment on above: Performed By: #### L 500.4100, L501.9520, L506.1001, L100.0100, L500.4050 #### [facility] [address] [place], [address] MCHC (RBC) [Mass/Vol] 33.0 g/dL Normal 32-36 [facility] Comment on above: Performed By: #### L 500.4100, L501.9520, L506.1001, L100.0100, L500.4050 #### [facility] [address] [place], [address] MCV (RBC) [Entitic vol] 98.0 fL Normal 81-99 [facility] Comment on above: Performed By: #### L 500.4100, L501.9520, L506.1001, L100.0100, L500.4050 #### [facility] [address] [place], [address] Monocytes/100 WBC (Bld) 8.1 % Normal 0-10 [facility] Comment on above: Performed By: #### L 500.4100, L501.9520, L506.1001, L100.0100, L500.4050 #### [facility] [address] [place], [address] Neutrophils/100 WBC (Bld) 63.6 % Normal 47-70 [facility] Comment on above: Performed By: #### L 500.4100, L501.9520, L506.1001, L100.0100, L500.4050 #### [facility] [address] [place], [address] Nucleated RBC (Bld) [#/Vol] 0 10*3/uL Normal 0-5 [facility] Comment on above: Performed By: #### L 500.4100, L501.9520, L506.1001, L100.0100, L500.4050 #### [facility] [address] [place], [address] Platelet mean volume (Bld) [Entitic vol] 10.7 fL Normal 6.2-12.0 [facility] Comment on above: Performed By: #### L 500.4100, L501.9520, L506.1001, L100.0100, L500.4050 #### [facility] [address] [place], [address] Platelets (Bld) [#/Vol] 191 10*3/uL Normal 150-450 [facility] Comment on above: Performed By: #### L 500.4100, L501.9520, L506.1001, L100.0100, L500.4050 #### [facility] [address] [place], [address] RBC (Bld) [#/Vol] 4.60 10*6/uL Normal 4.2-5.4 [facility] Comment on above: Performed By: #### L 500.4100, L501.9520, L506.1001, L100.0100, L500.4050 #### [facility] [address] [place], [address] RDW SD 48.5 fl High 35.1-43.9 [facility] Comment on above: Performed By: #### L 500.4100, L501.9520, L506.1001, L100.0100, L500.4050 #### [facility] [address] [place], [address] WBC (Bld) [#/Vol] 4.6 10*3/uL Normal 4.4-11.0 [facility] Comment on above: Performed By: #### L 500.4100, L501.9520, L506.1001, L100.0100, L500.4050 #### [facility] [address] [place], [address] Calculated very low density lipoprotein (VLDL) cholesterol measurementOrdered By: Olivier Olmstead on 12-31-2024 Calculated very low density lipoprotein (VLDL) cholesterol measurement 22 mg/dL 5-40 [facility] VLDL Cholesterol 22 mg/dL 5-40 [facility] Carbon dioxide, total [Moles /volume] in Central venous bloodOrdered By: Olivier Olmstead on 12-31-2024 CO2 [Moles/Vol] 20.8 mmol/L Low 21.0-32.0 [facility] Chloride assayOrdered By: Dre Olmstead on 12-31-2024 Chloride [Moles/Vol] 105 mmol/L 98-108 [facility] Comprehensive Metabolic Prof ilon 12-31-2024 Albumin [Mass/Vol] 4.1 g/dL Normal 3.4-4.8 [facility] Comment on above: Performed By: #### L 500.4100, L501.9520, L506.1001, L100.0100, L500.4050 #### [facility] [address] [place], [address] Albumin/Globulin [Mass ratio] 1.4 {ratio} Normal 0.9-2.4 [facility] Comment on above: Performed By: #### L 500.4100, L501.9520, L506.1001, L100.0100, L500.4050 #### [facility] [address] [place], [address] ALK PHOS 122 U/L High 35-104 [facility] Comment on above: Performed By: #### L 500.4100, L501.9520, L506.1001, L100.0100, L500.4050 #### [facility] [address] [place], [address] ALT [Catalytic activity/Vol] 35 U/L Normal <=34 [facility] Comment on above: Performed By: #### L 500.4100, L501.9520, L506.1001, L100.0100, L500.4050 #### [facility] [address] [place], [address] AST [Catalytic activity/Vol] 36 U/L High <=31 [facility] Comment on above: Performed By: #### L 500.4100, L501.9520, L506.1001, L100.0100, L500.4050 #### [facility] [address] [place], [address] Bilirubin [Mass/Vol] 0.53 mg/dL Normal 0.00-1.30 [facility] Comment on above: Performed By: #### L 500.4100, L501.9520, L506.1001, L100.0100, L500.4050 #### [facility] [address] [place], [address] BUN/CRE 27.7 RATIO High 10-20 [facility] Comment on above: Performed By: #### L 500.4100, L501.9520, L506.1001, L100.0100, L500.4050 #### [facility] [address] [place], [address] Calcium [Mass/Vol] 9.7 mg/dL Normal 7.6-11.0 [facility] Comment on above: Performed By: #### L 500.4100, L501.9520, L506.1001, L100.0100, L500.4050 #### [facility] [address] [place], [address] Chloride [Moles/Vol] 105 mmol/L Normal 98-108 [facility] Comment on above: Performed By: #### L 500.4100, L501.9520, L506.1001, L100.0100, L500.4050 #### [facility] [address] [place], [address] CO2 [Moles/Vol] 20.8 mmol/L Low 21.0-32.0 [facility] Comment on above: Performed By: #### L 500.4100, L501.9520, L506.1001, L100.0100, L500.4050 #### [facility] [address] [place], [address] Creatinine [Mass/Vol] 0.67 mg/dL Low 0.70-1.20 [facility] Comment on above: Performed By: #### L 500.4100, L501.9520, L506.1001, L100.0100, L500.4050 #### [facility] [address] [place], [address] GAP 15 Normal 5-15 [facility] Comment on above: Performed By: #### L 500.4100, L501.9520, L506.1001, L100.0100, L500.4050 #### [facility] [address] [place], [address] GFR/1.73 sq M.predicted among non-blacks MDRD (S/P/Bld) [Vol rate/Area] 91 mL/min/{1.73_m2} Normal >60 [facility] Comment on above: Result Comment: mL/m in/1.73m2 CKD-EPI Creatinine Equation (2020) Performed By: #### L 500.4100, L501.9520, L506.1001, L100.0100, L500.4050 #### [facility] [address] [place], [address] Globulin (S) [Mass/Vol] 2.9 g/dL Normal 2.2-4.2 [facility] Comment on above: Performed By: #### L 500.4100, L501.9520, L506.1001, L100.0100, L500.4050 #### [facility] Laboratory [address] [place], [address] Glucose [Mass/Vol] 92 mg/dL Normal 70-99 [facility] Comment on above: Performed By: #### L 500.4100, L501.9520, L506.1001, L100.0100, L500.4050 #### [facility] [address] [place], [address] Potassium [Moles/Vol] 3.9 mmol/L Normal 3.3-5.1 [facility] Comment on above: Performed By: #### L 500.4100, L501.9520, L506.1001, L100.0100, L500.4050 #### [facility] [address] [place], [address] Sodium [Moles/Vol] 141 mmol/L Normal 133-145 [facility] Comment on above: Performed By: #### L 500.4100, L501.9520, L506.1001, L100.0100, L500.4050 #### [facility] [address] [place], [address] T PROT 7.0 g/dL Normal 5.9-8.4 [facility] Comment on above: Performed By: #### L 500.4100, L501.9520, L506.1001, L100.0100, L500.4050 #### [facility] [address] [place], [address] Urea nitrogen [Mass/Vol] 19 mg/dL Normal 4-19 [facility] Comment on above: Performed By: #### L 500.4100, L501.9520, L506.1001, L100.0100, L500.4050 #### [facility] [address] [place], [address] Eosinophil percentageOrdered By: [facility] Ishan 12-31-2024 Eosinophils/100 WBC (Bld) 2.9 % 0-5 [facility] Erythrocyte distribution wid th ratioOrdered By: [facility] Erythrocyte distribution width (RBC) [Ratio] 13.4 % 11.6-14.6 [facility] Erythrocyte distribution wid th standard deviationOrdered By: [facility] 12-31-2024 Erythrocyte distribution width (RBC) [Entitic vol] 48.5 fL High 35.1-43.9 [facility] Erythrocyte distribution width (RBC) [Ratio] 48.5 fl High 35.1-43.9 [facility] GFR/1.73 sq M.predicted [facility] non-blacks MDRD (S/P/Bld) [Vol rate/Area]Ordered By: Olivier Olmstead 12-31-2024 Estimated GFR (MDRD) Non-Af Amer 91 >60 [facility] Comment on above: mL/min/1.73m2 CKD-EP I Creatinine Equation (2020) Glomerular filtration rate ( GFR) estimation/1.73 sq m using serum, plasma, or whole bOrdered By: Olivier Ishan 12-31-2024 GFR/1.73 sq M.predicted among non-blacks MDRD (S/P/Bld) [Vol rate/Area] 91 mL/min/{1.73_m2} >60 [facility] Comment on above: mL/min/1.73m2 CKD-EP I Creatinine Equation (2020) Hematocrit Auto (Bld) [Volum e fraction]Ordered By: Olivier Olmstead 12-31-2024 Hematocrit (Bld) [Volume fraction] 45.1 % 37-47 [facility] Hemoglobin measurementOrdere d By: Olivier Olmstead 12-31-2024 Hemoglobin (Bld) [Mass/Vol] 14.9 g/dL 12.0-15.0 [facility] Immature granulocytes/100 WB C Auto (Bld)Ordered By: Olivier Olmstead 12-31-2024 Immature granulocytes/100 WBC (Bld) 0.200 % 0.0-0.9 [facility] Comment on above: IG% - Immature Granu locytes (promyelocytes, myelocytes and metamyelocytes) > 1% indicates that a LEFT SHIFT is Present. L506.1001on 12-31-2024 Vitamin D 25-OH 37.5 ng/mL Normal 30-100 [facility] Comment on above: Result Comment: Damaris min D Status Deficiency: <20 ng/mL (50nmol/L) Insufficiency: 20-30 ng/mL (50-75 nmol/L) Sufficiency: 30-100 ng/mL (75-250 nmol/L) Toxicity: >100 ng/mL (>250 nmol/L) Performed By: #### L 500.4100, L501.9520, L506.1001, L100.0100, L500.4050 #### [facility] [address] [place], [address] LDL calc ser/plasOrdered By: Olivier Olmstead on 12-31-2024 Cholesterol in LDL [Mass/Vol] 114 mg/dL [facility] Comment on above: Cojuszajzn=675-468 m g/dL & Higher Ndtk=625 mg/dL or greater LDL Cholesterol, Calculated 114 mg/dL [facility] Comment on above: Cdkqinbhvq=216-406 m g/dL & Higher Xzda=481 mg/dL or greater Laboratory - Chemistry and C hemistry - challengeOrdered By: Olivier Olmstead on 12-31-2024 AST [Catalytic activity/Vol] 36 U/L High <32 [facility] Lipid Profileon 12-31-2024 CHOL:HDL 3.04 Normal [facility] Comment on above: Performed By: #### L 500.4100, L501.9520, L506.1001, L100.0100, L500.4050 #### [facility] [address] [place], [address] Cholesterol [Mass/Vol] 203 mg/dL High <=200 [facility] Comment on above: Result Comment: Chol esterol level, Desirable <200 mg/dL Borderline high cholesterol 200-239 mg/dL High cholesterol >=240 mg/dL Recommendations of the NCEP Adult Treatment Panel for the following risk-cutoff thresholds for the [place] Stateless population. Performed By: #### L 500.4100, L501.9520, L506.1001, L100.0100, L500.4050 #### [facility] [address] [place], [address] Cholesterol in HDL [Mass/Vol] 67 mg/dL Normal [facility] Comment on above: Result Comment: Magda onal Cholesterol Education Program (NCEP) guidelines: <40 mg/dL: Low HDL-cholesterol (major risk factor for CHD) >= 60 mg/dL: High HDL-cholesterol (negative risk factor for CHD) HDL-cholesterol is affected by a number of factors, e.g. smoking, exercise, hormones, sex and age. Performed By: #### L 500.4100, L501.9520, L506.1001, L100.0100, L500.4050 #### [facility] [address] [place], [address] Cholesterol in LDL [Mass/Vol] 114 mg/dL Normal [facility] Comment on above: Result Comment: Bord qhazet=076-342 mg/dL Higher Yzaj=363 mg/dL or greater Performed By: #### L 500.4100, L501.9520, L506.1001, L100.0100, L500.4050 #### [facility] [address] [place], [address] Cholesterol in VLDL [Mass/Vol] 22 mg/dL Normal 5-40 [facility] Comment on above: Performed By: #### L 500.4100, L501.9520, L506.1001, L100.0100, L500.4050 #### [facility] [address] [place], [address] Triglyceride [Mass/Vol] 112 mg/dL Normal [facility] Comment on above: Result Comment: The drugs N-Acetylcysteine and Metamizole may falsely depress this assay. Normal range: <150 mg/dL Borderline High: 150-199 mg/dL High: 200-499 mg/dL Very High: >500 mg/dL Performed By: #### L 500.4100, L501.9520, L506.1001, L100.0100, L500.4050 #### [facility] [address] [place], [address] Lymphocytes Auto (Unsp spec) [#/Vol]Ordered By: Olivier Olmstead on 12-31-2024 Lymphocytes (Bld) [#/Vol] 1.13 10*3/uL 0.83-4.51 [facility] Lymphocytes/100 WBC Auto (Un sp spec)Ordered By: Olivier Olmstead on 12-31-2024 Lymphocytes/100 WBC (Bld) 24.8 % 19-41 [facility] MCV (mean corpuscular volume ) determinationOrdered By: Olivier Olmstead on 12-31-2024 MCV (RBC) [Entitic vol] 98.0 fL 81-99 [facility] Mean corpuscular hemoglobin (MCH) determinationOrdered By: Olivier Olmstead on 12-31-2024 MCH (RBC) [Entitic mass] 32.4 pg High 27.0-32.0 [facility] Mean corpuscular hemoglobin concentration (MCHC) determinationOrdered By: Olivier Olmstead on 12-31-2024 MCHC (RBC) [Mass/Vol] 33.0 g/dL 32-36 [facility] Mean platelet volume determi nationOrdered By: Olivier Olmstead on 12-31-2024 Platelet mean volume (Bld) [Entitic vol] 10.7 fL 6.2-12.0 [facility] Monocyte percentageOrdered B y: Olivier Olmstead on 12-31-2024 Monocytes/100 WBC (Bld) 8.1 % 0-10 [facility] Neutrophil percentageOrdered By: Olivier Olmstead on 12-31-2024 Neutrophils/100 WBC (Bld) 63.6 % 47-70 [facility] Nucleated red blood cell per centageOrdered By: Olivier Olmstead on 12-31-2024 Nucleated RBC/100 WBC (Bld) [Ratio] 0 % 0-5 [facility] Platelet countOrdered By: Dre Olmstead on 12-31-2024 Platelets (Bld) [#/Vol] 191 10*3/uL 150-450 [facility] Potassium (Unsp spec) [Mass/ Vol]Ordered By: Olivier Olmstead on 12-31-2024 Potassium [Moles/Vol] 3.9 mmol/L 3.3-5.1 [facility] Potassium measurement (mass/ volume)Ordered By: Olivier Olmstead 12-31-2024 Potassium (Unsp spec) [Mass/Vol] 3.9 mmol/L 3.3-5.1 [facility] RBC Auto (Bld) [#/Vol]Ordere d By: Olivier Olmstead on 12-31-2024 RBC (Bld) [#/Vol] 4.60 10*6/uL 4.2-5.4 [facility] Screening total cholesterol/ high density lipoprotein (HDL) cholesterol ratioOrdered By: Olivier Olmstead on 12-31-2024 Cholesterol.total/Anna sterol in HDL [Mass ratio] 3.04 {ratio} [facility] Serum creatinine measurement (mass/volume)Ordered By: Olivier Olmstead on 12-31-2024 Creatinine [Mass/Vol] 0.67 mg/dL Low 0.70-1.20 [facility] Serum globulin measurementOr dered By: Olivier Olmstead 12-31-2024 Globulin (S) [Mass/Vol] 2.9 g/dL 2.2-4.2 [facility] Serum glucose measurement (m ass/volume)Ordered By: Olivier Olmstead 12-31-2024 Glucose [Mass/Vol] 92 mg/dL 70-99 [facility] Serum or plasma alanine condon otransferase (ALT) measurementOrdered By: Olivier Olmstead 12-31-2024 ALT [Catalytic activity/Vol] 35 U/L <35 [facility] Serum or plasma albumin hesham urement (mass/volume)Ordered By: Olivier Olmstead 12-31-2024 Albumin [Mass/Vol] 4.1 g/dL 3.4-4.8 [facility] Serum or plasma albumin/glob ulin mass ratioOrdered By: Olivier Olmstead 12-31-2024 Albumin/Globulin [Mass ratio] 1.4 {ratio} 0.9-2.4 [facility] Serum or plasma alkaline alee sphatase measurementOrdered By: Olivier Olmstead 12-31-2024 ALP [Catalytic activity/Vol] 122 U/L High 35-104 [facility] Serum or plasma calcium hesham urement (mass/volume)Ordered By: Olivier Olmstead on 12-31-2024 Calcium [Mass/Vol] 9.7 mg/dL 7.6-11.0 [facility] Serum or plasma cholesterol in HDL measurement (mass/volume)Ordered By: Olivier Olmstead on 12-31-2024 Cholesterol in HDL [Mass/Vol] 67 mg/dL >40 [facility] Comment on above: National Cholesterol Education Program (NCEP) guidelines:<40 mg/dL: Low HDL-cholesterol (major risk factor for CHD)>= 60 mg/dL: High HDL-cholesterol (negative risk factor for CHD)HDL-cholesterol is affected by a number of factors, e.g. smoking, exercise, hormones, sex and age. Serum or plasma cholesterol measurement (mass/volume)Ordered By: Olivier Olmstead on 12-31-2024 Cholesterol [Mass/Vol] 203 mg/dL High <201 [facility] Comment on above: Cholesterol level, D esirable <200 mg/dLBorderline high cholesterol 200-239 mg/dLHigh cholesterol >=240 mg/dLRecommendations of the NCEP Adult Treatment Panel for the following risk-cutoff thresholds for the [place] Stateless population. Serum or plasma urea nitroge n measurement (mass/volume)Ordered By: Olivier Olmstead on 12-31-2024 Urea nitrogen [Mass/Vol] 19 mg/dL 4-19 [facility] Sodium levelOrdered By: Olivier Olmstead on 12-31-2024 Sodium [Moles/Vol] 141 mmol/L 133-145 [facility] TSH DL <= 0.005 mIU/L QnOrde red By: Olivier Olmstead on 12-31-2024 Thyroid Stimulating Hormone (TSH) 0.510 uIU/mL 0.300-4.200 [facility] TSH Qn 0.510 uIU/mL 0.300-4.200 [facility] Thyroid Stim Hormone (TSH)on 12-31-2024 TSH 0.510 uIU/mL Normal 0.300-4.200 [facility] Comment on above: Performed By: #### L 500.4100, L501.9520, L506.1001, L100.0100, L500.4050 #### [facility] [address] [place], [address] Total proteinOrdered By: Olivier Olmstead on 12-31-2024 Protein [Mass/Vol] 7.0 g/dL 5.9-8.4 [facility] Triglycerides measurementOrd ered By: Olivier Olmstead on 12-31-2024 Triglyceride [Mass/Vol] 112 mg/dL <199 [facility] Comment on above: The drugs N-Acetylcy steine and Metamizole may falsely depress this assay. Normal range: <150 mg/dLBorderline High: 150-199 mg/dLHigh: 200-499 mg/dLVery High: >500 mg/dL Vitamin D, 25-hydroxyOrdered By: Olivier Olmstead on 12-31-2024 Vitamin D 25-Hydroxy 37.5 ng/mL 30-100 [facility] Comment on above: Vitamin D StatusDefi ciency: <20 ng/mL (50nmol/L)Insufficiency: 20-30 ng/mL (50-75 nmol/L)Sufficiency: 30-100 ng/mL (75-250 nmol/L)Toxicity: >100 ng/mL (>250 nmol/L) White blood cell (WBC) count Ordered By: Olivier Olmstead on 12-31-2024 WBC (Bld) [#/Vol] 4.6 10*3/uL 4.4-11.0 [facility] 12 Lead EKG performed by [facility] [place] on 12-25-2024 12 Lead EKG performed by [facility] [address] [place] [address] 12 Lead EKG performed by [facility] [place] 12/25/24 1010 MR#: [id number] Acct: [id number] Name: DONNA YATES Rep #: [id number] : 1950 74 From: Anastacio Scruggs MD Attending Dr: Dr. Anastacio Scruggs MD Status: DE P ZEYAD Ordering Dr: Anastacio Scruggs MD Date: 12/25/24 Location: [facility] [place] Sex: F C Admitted: [facility] [place]/12 Lead EKG performed by [facility] [place] ECG Report Interpretation --Sinus RhythmLow voltage in precordial leads. -Intraventricular conduction defect and left axis -possible anterior fascicular block consider ventricular hypertrophy. -Left atrial enlargement. -Poor R-wave progression ABNORMAL Electronically signed on 12/25/2024 at 12:[address] Anastacio Scruggs [employer] Software Version 8610 12/25/24 1219 Date Anastacio Scruggs MD CC: Dr. Olivier Olmstead MD Date Dictated: 12/25/24 1010 Date Transcribed: 12/25/24 1010 [employer] G: Signed Normal [facility] Cardiology Visit Reporton Cardiology Visit Report [facility] [place] [address] [facility] [place] [address] OFFICE VISIT Date of Service: 12/25/24 MR#: [id number] Acct: [id number] Name: DONNA YATES Rep #: [id number] : 1950 Provider: Dr. Anastacio dumont MD Age/Sex: 74/F Location: [facility] [place].[facility] Status: Signed HPI HPI History of Present [...] air Intake Visit Reasons: 1 Y FU Airport Guide Required: No Accompanied by: Self Is patient [...] of kidney stones Left bundle branch block Myfclmu-Hounp-Bsxkt disease Hypotension Depression Surgical History History of [...] Endo En (more content not included)... Normal [facility] ENTERIC PATHOGEN PANEL STOOL on 11-22-2024 EP [...] VIBRIO Not Detected Yersinia Not Detected Normal [facility] Comment on above: Performed By: #### L 500.2040, L501.9520, L506.1001, L100.0100, L500.4050 #### [facility] [address] [place], [place], [address] Urine Cultureon 11-22-2024 URC Escherichia coli [place] Count 50,000-80,000 Escherichia coli: REACTION Ampicillin Islt [...] TMP SMX Islt MADALYN <=20 S Normal [facility] Comment on above: Performed By: #### L 500.4100, L501.9520, L506.1001, L100.0100, L500.4050 #### [facility] [address] [facility] [place], [place], [address] Stool enteric pathogen panel by probe and target amplification methodOrdered By: Olivier Olmstead on 11-21-2024 Enteric Bacteriology [facility] Abdomen/Pelvis WITH Contrast on 11-20-2024 Abdomen/Pelvis WITH Contrast [facility] [address] [place], [place] [address] Abdomen/Pelvis WITH Contrast MR#: [id number] Acct: [id number] Name: DONNA YATES Rep #: [id number] : 1950 F 74 From: Kale locke MD PCP: Dr. Olivier Olmstead MD Status: REG CLI Study: Abdomen/Pelvis WITH Contrast Date of Exam: Exam# [id number] Ordering Dr: Olivier Olmstead MD [id number] STUDY: CT ABDOMEN AND PELVIS WITH CONTRAST [...] MD at 14:42 EST , CC: Dr. lOivier Olmstead MD [employer] G: Signed Normal [facility] Absolute neutrophil countOrd ered By: Olivier Olmstead on 11-20-2024 Neutrophils (Bld) [#/Vol] 4.1 10*3/uL 2.0-7.7 [facility] Albumin to globulin ratioOrd ered By: Olivier Olmstead on 11-20-2024 Albumin/Globulin [Mass ratio] 0.8 {ratio} Low 0.9-2.4 [facility] Basophil percentageOrdered B y: Olivier Ishan on 11-20-2024 Basophils/100 WBC (Bld) 0.5 % 0-1 [facility] Bilirubin, totalOrdered By: Olivier Olmstead on 11-20-2024 Bilirubin [Mass/Vol] 1.30 mg/dL High 0.20-1.00 [facility] Comment on above: For patients on eltr ombopag therapy, use of Dimension [place] TBIL is not recommended. Blood urea nitrogen (BUN)/cr eatinine ratioOrdered By: Olivier Ishan on 11-20-2024 Urea nitrogen/Creatinine [Mass ratio] 25.0 mg/mg High 10-20 [facility] CBC W/Diff, Automatedon 10-30 Absolute Lymph 1.04 X10 3/uL Normal 0.83-4.51 [facility] Comment on above: Performed By: #### L 500.4100, L501.9520, L506.1001, L100.0100, L500.4050 #### [facility] [address] [place], [address] Absolute Neut 4.1 X10 3/uL Normal 2.0-7.7 [facility] Comment on above: Performed By: #### L 500.4100, L501.9520, L506.1001, L100.0100, L500.4050 #### [facility] [address] [place], [address] Basophils/100 WBC (Bld) 0.5 % Normal 0-1 [facility] Comment on above: Performed By: #### L 500.4100, L501.9520, L506.1001, L100.0100, L500.4050 #### [facility] [address] [place], [address] Eosinophils/100 WBC (Bld) 3.1 % Normal 0-5 [facility] Comment on above: Performed By: #### L 500.4100, L501.9520, L506.1001, L100.0100, L500.4050 #### [facility] [address] [place], [address] Erythrocyte distribution width (RBC) [Ratio] 12.3 % Normal 11.6-14.6 [facility] Comment on above: Performed By: #### L 500.4100, L501.9520, L506.1001, L100.0100, L500.4050 #### [facility] [address] [place], [address] Hematocrit (Bld) [Volume fraction] 40.1 % Normal 37-47 [facility] Comment on above: Performed By: #### L 500.4100, L501.9520, L506.1001, L100.0100, L500.4050 #### [facility] [address] [place], [address] Hemoglobin (Bld) [Mass/Vol] 13.5 g/dL Normal 12.0-15.0 [facility] Comment on above: Performed By: #### L 500.4100, L501.9520, L506.1001, L100.0100, L500.4050 #### [facility] [address] [place], [address] IG% 0.500 Normal 0.0-0.9 [facility] Comment on above: Result Comment: IG% - Immature Granulocytes (promyelocytes, myelocytes and metamyelocytes) > 1% indicates that a LEFT SHIFT is Present. Performed By: #### L 500.4100, L501.9520, L506.1001, L100.0100, L500.4050 #### [facility] [address] [place], [address] Lymphocytes/100 WBC (Bld) 17.7 % Low 19-41 [facility] Comment on above: Performed By: #### L 500.4100, L501.9520, L506.1001, L100.0100, L500.4050 #### [facility] [address] [place], [address] MCH (RBC) [Entitic mass] 32.0 pg Normal 27.0-32.0 [facility] Comment on above: Performed By: #### L 500.4100, L501.9520, L506.1001, L100.0100, L500.4050 #### [facility] [address] [place], [address] MCHC (RBC) [Mass/Vol] 33.7 g/dL Normal 32-36 [facility] Comment on above: Performed By: #### L 500.4100, L501.9520, L506.1001, L100.0100, L500.4050 #### [facility] [address] [place], [address] MCV (RBC) [Entitic vol] 95.0 fL Normal 81-99 [facility] Comment on above: Performed By: #### L 500.4100, L501.9520, L506.1001, L100.0100, L500.4050 #### [facility] [address] [place], [address] Monocytes/100 WBC (Bld) 8.5 % Normal 0-10 [facility] Comment on above: Performed By: #### L 500.4100, L501.9520, L506.1001, L100.0100, L500.4050 #### [facility] [address] [place], [address] Neutrophils/100 WBC (Bld) 69.7 % Normal 47-70 [facility] Comment on above: Performed By: #### L 500.4100, L501.9520, L506.1001, L100.0100, L500.4050 #### [facility] [address] [place], [address] Nucleated RBC (Bld) [#/Vol] 0 10*3/uL Normal 0-5 [facility] Comment on above: Performed By: #### L 500.4100, L501.9520, L506.1001, L100.0100, L500.4050 #### [facility] [address] [place], [address] Platelet mean volume (Bld) [Entitic vol] 10.9 fL Normal 6.2-12.0 [facility] Comment on above: Performed By: #### L 500.4100, L501.9520, L506.1001, L100.0100, L500.4050 #### [facility] [address] [place], [address] Platelets (Bld) [#/Vol] 195 10*3/uL Normal 150-450 [facility] Comment on above: Performed By: #### L 500.4100, L501.9520, L506.1001, L100.0100, L500.4050 #### [facility] [address] [place], [address] RBC (Bld) [#/Vol] 4.22 10*6/uL Normal 4.2-5.4 [facility] Comment on above: Performed By: #### L 500.4100, L501.9520, L506.1001, L100.0100, L500.4050 #### [facility] [address] [place], [address] RDW SD 42.8 fl Normal 35.1-43.9 [facility] Comment on above: Performed By: #### L 500.4100, L501.9520, L506.1001, L100.0100, L500.4050 #### [facility] [address] [place], [address] WBC (Bld) [#/Vol] 5.9 10*3/uL Normal 4.4-11.0 [facility] Comment on above: Performed By: #### L 500.4100, L501.9520, L506.1001, L100.0100, L500.4050 #### [facility] [address] [place], [address] Carbon dioxide measurementOr dered By: Olivier Olmstead on 11-20-2024 CO2 [Moles/Vol] 22.0 mmol/L 21.0-32.0 [facility] Chloride measurementOrdered By: Olivier Olmstead on 11-20-2024 Chloride [Moles/Vol] 104 mmol/L 98-107 [facility] Comprehensive Metabolic Prof ilon 11-20-2024 Albumin [Mass/Vol] 3.1 g/dL Low 3.2-5.0 [facility] Comment on above: Performed By: #### L 500.4100, L501.9520, L506.1001, L100.0100, L500.4050 #### [facility] [address] [place], [address] Albumin/Globulin [Mass ratio] 0.8 {ratio} Low 0.9-2.4 [facility] Comment on above: Performed By: #### L 500.4100, L501.9520, L506.1001, L100.0100, L500.4050 #### [facility] [address] [place], [address] ALK P 142 U/L High 45-117 [facility] Comment on above: Performed By: #### L 500.4100, L501.9520, L506.1001, L100.0100, L500.4050 #### [facility] [address] [place], [address] ALT [Catalytic activity/Vol] 28 U/L Normal 13-56 [facility] Comment on above: Performed By: #### L 500.4100, L501.9520, L506.1001, L100.0100, L500.4050 #### [facility] [address] [place], [address] AST [Catalytic activity/Vol] 24 U/L Normal 15-37 [facility] Comment on above: Performed By: #### L 500.4100, L501.9520, L506.1001, L100.0100, L500.4050 #### [facility] [address] [place], [address] Bilirubin [Mass/Vol] 1.30 mg/dL High 0.20-1.00 [facility] Comment on above: Result Comment: For patients on eltrombopag therapy, use of Dimension [place] TBIL is not recommended. Performed By: #### L 500.4100, L501.9520, L506.1001, L100.0100, L500.4050 #### [facility] [address] [place], [address] BUN/CRE 25.0 RATIO High 10-20 [facility] Comment on above: Performed By: #### L 500.4100, L501.9520, L506.1001, L100.0100, L500.4050 #### [facility] [address] [place], [address] CA,Total 9.3 mg/dL Normal 8.5-10.1 [facility] Comment on above: Performed By: #### L 500.4100, L501.9520, L506.1001, L100.0100, L500.4050 #### [facility] [address] [place], [address] Chloride [Moles/Vol] 104 mmol/L Normal 98-107 [facility] Comment on above: Performed By: #### L 500.4100, L501.9520, L506.1001, L100.0100, L500.4050 #### [facility] [address] [place], [address] CO2 [Moles/Vol] 22.0 mmol/L Normal 21.0-32.0 [facility] Comment on above: Performed By: #### L 500.4100, L501.9520, L506.1001, L100.0100, L500.4050 #### [facility] [address] [place], [address] Creatinine [Mass/Vol] 0.56 mg/dL Normal 0.55-1.02 [facility] Comment on above: Result Comment: The validity of the calculated GFR GFRAA in patients over 70 years has not been determined. Clinical correlation is essential. Performed By: #### L 500.4100, L501.9520, L506.1001, L100.0100, L500.4050 #### [facility] [address] [place], [address] EST GFR - AA 135 mL/min Normal >60 [facility] Comment on above: Result Comment: Afri can Stateless GFR Calc Performed By: #### L 500.4100, L501.9520, L506.1001, L100.0100, L500.4050 #### [facility] [address] [place], [address] GAP 9 Normal 5-15 [facility] Comment on above: Performed By: #### L 500.4100, L501.9520, L506.1001, L100.0100, L500.4050 #### [facility] [address] [place], [address] GFR/1.73 sq M.predicted among non-blacks MDRD (S/P/Bld) [Vol rate/Area] 112 mL/min/{1.73_m2} Normal >60 [facility] Comment on above: Result Comment: Non- GFR Calc Performed By: #### L 500.4100, L501.9520, L506.1001, L100.0100, L500.4050 #### [facility] [address] [place], [address] Globulin (S) [Mass/Vol] 3.7 g/dL Normal 2.2-4.2 [facility] Comment on above: Performed By: #### L 500.4100, L501.9520, L506.1001, L100.0100, L500.4050 #### [facility] [address] [place], [address] Glucose [Mass/Vol] 97 mg/dL Normal 74-106 [facility] Comment on above: Performed By: #### L 500.4100, L501.9520, L506.1001, L100.0100, L500.4050 #### [facility] [address] [place], [address] Potassium [Moles/Vol] 3.8 mmol/L Normal 3.5-5.1 [facility] Comment on above: Performed By: #### L 500.4100, L501.9520, L506.1001, L100.0100, L500.4050 #### [facility] [address] [place], [address] Sodium [Moles/Vol] 135 mmol/L Low 136-145 [facility] Comment on above: Performed By: #### L 500.4100, L501.9520, L506.1001, L100.0100, L500.4050 #### [facility] [address] [place], [address] T PROT 6.8 g/dL Normal 6.4-8.2 [facility] Comment on above: Performed By: #### L 500.4100, L501.9520, L506.1001, L100.0100, L500.4050 #### [facility] [address] [place], [address] Urea nitrogen [Mass/Vol] 14 mg/dL Normal 7-18 [facility] Comment on above: Performed By: #### L 500.4100, L501.9520, L506.1001, L100.0100, L500.4050 #### [facility] [address] [place], [address] Eosinophil percentageOrdered By: Olivier Olmstead on 11-20-2024 Eosinophils/100 WBC (Bld) 3.1 % 0-5 [facility] Erythrocyte distribution wid th ratioOrdered By: Olivier Olmstead on 11-20-2024 Erythrocyte distribution width (RBC) [Ratio] 12.3 % 11.6-14.6 [facility] Erythrocyte distribution wid th standard deviationOrdered By: Olivier Olmstead on 11-20-2024 Erythrocyte distribution width (RBC) [Entitic vol] 42.8 fL 35.1-43.9 [facility] Estimated glomerular filtrat ion rate (GFR) AmericanOrdered By: Olivier Olmstead on 11-20-2024 Estimated GFR (MDRD) Amer 135 mL/min >60 [facility] Comment on above: GFR Calc Glomerular filtration rate ( GFR) estimationOrdered By: Olivier Olmstead 11-20-2024 Estimated GFR (MDRD) Non-Af Amer 112 mL/min >60 [facility] Comment on above: Non- GFR Calc Glucose measurementOrdered B y: Olivier Olmstead on 11-20-2024 Glucose [Mass/Vol] 97 mg/dL 74-106 [facility] Hematocrit Auto (Bld) [Volum e fraction]Ordered By: Olivier Olmstead 11-20-2024 Hematocrit (Bld) [Volume fraction] 40.1 % 37-47 [facility] Hemoglobin measurementOrdere d By: Olivier Olmstead 11-20-2024 Hemoglobin (Bld) [Mass/Vol] 13.5 g/dL 12.0-15.0 [facility] Immature granulocytes/100 WB C Auto (Bld)Ordered By: Olivier Olmstead on 11-20-2024 Immature granulocytes/100 WBC (Bld) 0.500 % 0.0-0.9 [facility] Comment on above: IG% - Immature Granu locytes (promyelocytes, myelocytes and metamyelocytes) > 1% indicates that a LEFT SHIFT is Present. Influenza virus A and B and SARS-CoV-2 (COVID-19) and Respiratory syncytial virus RNAOrdered By: Olivier Olmstead on 11-20-2024 SARS-CoV-2 (COVID-19) RNA FLORENTIN+probe Ql (Unsp spec) [facility] - Chemistry and C hemistry - challengeOrdered By: Olivier Olmstead on 11-20-2024 AST [Catalytic activity/Vol] 24 U/L 15-37 [facility] Lymphocytes Auto (Unsp spec) [#/Vol]Ordered By: Olivier Olmstead on 11-20-2024 Lymphocytes (Bld) [#/Vol] 1.04 10*3/uL 0.83-4.51 [facility] Lymphocytes/100 WBC Auto (Un sp spec)Ordered By: Olivier Olmstead on 11-20-2024 Lymphocytes/100 WBC (Bld) 17.7 % Low 19-41 [facility] M100.678on 11-20-2024 M100.678 Pending SARS-CoV-2 (COVID 19) Negative INFLUENZA A Negative INFLUENZA B Negative RSV PCR Negative Normal [facility] Comment on above: Performed By: #### L 500.4100, L501.9520, L506.1001, L100.0100, L500.4050 #### [facility] [address] [place], [address] MCV (mean corpuscular volume ) determinationOrdered By: Olivier Olmstead on 11-20-2024 MCV (RBC) [Entitic vol] 95.0 fL 81-99 [facility] Mean corpuscular hemoglobin (MCH) determinationOrdered By: Olivier Olmstead on 11-20-2024 MCH (RBC) [Entitic mass] 32.0 pg 27.0-32.0 [facility] Mean corpuscular hemoglobin concentration (MCHC) determinationOrdered By: Olivier Olmstead on 11-20-2024 MCHC (RBC) [Mass/Vol] 33.7 g/dL 32-36 [facility] Mean platelet volume determi nationOrdered By: Olivier Olmstead on 11-20-2024 Platelet mean volume (Bld) [Entitic vol] 10.9 fL 6.2-12.0 [facility] Monocyte percentageOrdered B y: Olivier Olmstead on 11-20-2024 Monocytes/100 WBC (Bld) 8.5 % 0-10 [facility] Neutrophil percentageOrdered By: Olivier Olmstead on 11-20-2024 Neutrophils/100 WBC (Bld) 69.7 % 47-70 [facility] Nucleated red blood cell per centageOrdered By: Olivier Olmstead on 11-20-2024 Nucleated RBC/100 WBC (Bld) [Ratio] 0 % 0-5 [facility] Platelet countOrdered By: Dre Olmstead on 11-20-2024 Platelets (Bld) [#/Vol] 195 10*3/uL 150-450 [facility] Potassium measurementOrdered By: Olivier Omlstead on 11-20-2024 Potassium [Moles/Vol] 3.8 mmol/L 3.5-5.1 [facility] RBC Auto (Bld) [#/Vol]Ordere d By: Olivier Olmstead on 11-20-2024 RBC (Bld) [#/Vol] 4.22 10*6/uL 4.2-5.4 [facility] Serum anion gap measurementO rdered By: Olivier Olmstead on 11-20-2024 Anion gap [Moles/Vol] 9 mmol/L 5-15 [facility] Serum globulin measurementOr dered By: Olivier Olmstead on 11-20-2024 Globulin (S) [Mass/Vol] 3.7 g/dL 2.2-4.2 [facility] Serum or plasma alanine condon otransferase (ALT) measurementOrdered By: Olivier Olmstead on 11-20-2024 ALT [Catalytic activity/Vol] 28 U/L 13-56 [facility] Serum or plasma albumin hesham urement (mass/volume)Ordered By: Olivier Olmstead on 11-20-2024 Albumin [Mass/Vol] 3.1 g/dL Low 3.2-5.0 [facility] Serum or plasma alkaline alee sphatase measurementOrdered By: Olivier Olmstead on 11-20-2024 ALP [Catalytic activity/Vol] 142 U/L High 45-117 [facility] Serum or plasma calcium hesham urement (mass/volume)Ordered By: Olivier Olmstead on 11-20-2024 Calcium [Mass/Vol] 9.3 mg/dL 8.5-10.1 [facility] Serum or plasma creatinine m easurement (mass/volume)Ordered By: Olivier Olmstead on 11-20-2024 Creatinine [Mass/Vol] 0.56 mg/dL 0.55-1.02 [facility] Comment on above: The validity of the calculated GFR & GFRAA in patients over 70 years has not been determined. Clinical correlation is essential. Serum or plasma urea nitroge n measurement (mass/volume)Ordered By: Olivier Olmstead 11-20-2024 Urea nitrogen [Mass/Vol] 14 mg/dL 7- [facility] Sodium levelOrdered By: Olivier Olmstead 11-20-2024 Sodium [Moles/Vol] 135 mmol/L Low 136-145 [facility] Total proteinOrdered By: Olivier Olmstead 11-20-2024 Protein [Mass/Vol] 6.8 g/dL 6.4-8.2 [facility] Urine cultureOrdered By: Olivier Olmstead 11-20-2024 Bacteria identified Cx Nom (U) Escherichia coli Abnormal [facility] White blood cell (WBC) count Ordered By: Olivier Olmstead 11-20-2024 WBC (Bld) [#/Vol] 5.9 10*3/uL 4.4-11.0 [facility] Inital Evaluation (1) - PTon 07-16-2024 Inital Evaluation (1) - PT [facility] [address] [place] [address] [address] [place] [address] / REHABILITATION SERVICES INITIAL EVALUATION MR#: [id number] Acct: [id number] Name: DONNA YATES Rep #: [id number] : 1950 73 From: Delores VELARDE Referring [...] steps in the house and has a bookmaker's 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 For Medicare only, by signing this I certify the plan of care. Please let me know if there are questions or concerns regarding this plan of care. Physician Signature: Date: ____ (more content not included)... Normal [facility] Orthopedic Visit Reporton Orthopedic Visit Report [facility] [address] [place] [address] 5 [place] [address] OFFICE VISIT Date of Service: 07/07/24 MR#: [id number] Acct: [id number] Name: DONNA YATES Rep #: [id number] : 1950 Provider: Dr. Mark mora DO Age/Sex: 73/F Location: [facility] [place] Status: Signed Intake Vital Signs 06/12/24 12:31 [...] of kidney stones Left bundle branch block Fznomxm-Odios-Zdawv disease Hypotension Depression Surgical History History of lithotripsy ( 10/2017) Hx of cholecystectomy H/O: section H/O: hysterectomy Hx of knee surgery Hx of foot surgery History of tonsillectomy Family History (Updated 01/03/24 @ 09:33 by Linda Mensah) Mother Hypertension Breast cancer Brother Colon cancer Sister Hypertension Daughter CAD (coronary artery disease) Father Colon cancer Social History (Reviewed 11/28/23 @ 13:45 by Ophelia Diana [employer] 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 Normal [facility] Clostridioides difficile nuc leic acid assay by PCROrdered By: Olivier Olmstead on 12-24-2023 C. difficile DNA FLORENTIN+probe Ql (Unsp spec) [facility] Lower GI hemoglobin IA Ql (S tl)Ordered By: Olivier Olmstead on 12-24-2023 Stool Occult Blood (MADALYN) Positive [facility] No Panel InformationOrdered By: Olivier Olmstead on 12-24-2023 Miscellaneous Test See comment [facility] Comment on above: SALMONELLA/SHIGELLA SCREEN FINAL REPORTRESULT 1 NO SALMONELLA OR SHIGELLA RECOVEREDCAMPYLOBACTER CULTURE FINAL REPORTRESULT 1 NO CAMPYLOBACTER SPECIES ISOLATEDE COLI SHIGA TOXIN EIA NEGATIVE ___ TESTING PERFORMED AT [facility]. ORIGINAL REPORT ON FILE IN LAB CONTAINS ADDITIONAL TEST SITE INFORMATION. Ova and parasitesOrdered By: Olivier Frankok on 12-24-2023 Ova and parasites identified LM Nom (Unsp spec) [facility] Stool lactoferrin detection by immunoassayOrdered By: Olivier Frankok on 12-24-2023 Lactoferrin IA Ql (Stl) [facility] Absolute lymphocyte countOrd ered By: Olivier Olmstead on 12-20-2023 Lymphocytes Auto (Unsp spec) [#/Vol] 1.67 10*3/uL 0.83-4.51 [facility] Automated lymphocyte count a s percentage of total leukocytesOrdered By: Olivier Frankok on 12-20-2023 Lymphocytes/100 WBC Auto (Unsp spec) 32.2 % 19-41 [facility] Basophil percentageOrdered B y: Olivier Olmstead on 12-20-2023 Basophil percentage < 1.0 mg/dL 0.55-1.02 [facility] Basophils/100 WBC (Bld) 0.4 % 0-1 [facility] Bilirubin [Mass/Vol] 1.00 mg/dL 0.20-1.00 [facility] Comment on above: For patients on eltr ombopag therapy, use of [place] TBIL is not recommended. Chloride [Moles/Vol] 112 mmol/L 98-107 [facility] Eosinophils/100 WBC (Bld) 3.3 % 0-5 [facility] Glucose [Mass/Vol] 103 mg/dL 74-106 [facility] Comment on above: Fasting Glucose resu lt from 100 to 125 mg/dL suggests IMPAIRED HOMEOSTASIS per A.D.A. criteria. Hemoglobin (Bld) [Mass/Vol] 13.4 g/dL 12.0-15.0 [facility] Monocytes/100 WBC (Bld) 6.4 % 0-10 [facility] Neutrophils (Bld) [#/Vol] 3.0 10*3/uL 2.0-7.7 [facility] Neutrophils/100 WBC (Bld) 57.3 % 47-70 [facility] Potassium [Moles/Vol] 3.8 mmol/L 3.5-5.1 [facility] Protein [Mass/Vol] 6.8 g/dL 6.4-8.2 [facility] Sodium [Moles/Vol] 139 mmol/L 136-145 [facility] WBC (Bld) [#/Vol] 5.2 10*3/uL 4.4-11.0 [facility] Determination of erythrocyte mean corpuscular volume (MCV)Ordered By: Olivier Olmstead on 12-20-2023 MCV (RBC) [Entitic vol] 95.3 fL 81-99 [facility] Erythrocyte distribution wid th ratioOrdered By: Olivier Olmstead on 12-20-2023 Erythrocyte distribution width (RBC) [Ratio] 12.8 % 11.6-14.6 [facility] Erythrocyte distribution wid th standard deviationOrdered By: Olivier Olmstead on 12-20-2023 Erythrocyte distribution width (RBC) [Entitic vol] 44.7 fL 35.1-43.9 [facility] Hematocrit Auto (Bld) [Volum e fraction]Ordered By: Olivier Olmstead on 12-20-2023 Hematocrit (Bld) [Volume fraction] 40.7 % 37-47 [facility] Immature granulocytes/100 WB C Auto (Bld)Ordered By: Olivier Olmstead 12-20-2023 Immature granulocytes/100 WBC (Bld) 0.400 % 0.0-0.9 [facility] Comment on above: IG% - Immature Granu locytes (promyelocytes, myelocytes and metamyelocytes) > 1% indicates that a LEFT SHIFT is Present. Laboratory - Chemistry and C hemistry - challengeOrdered By: Olivier Olmstead on 12-20-2023 GFR/1.73 sq M.predicted among non-blacks MDRD (S/P/Bld) [Vol rate/Area] 57.0000 mL/min/{1.73_m2} >60 [facility] Albumin/Globulin [Mass ratio] 1.1 {ratio} 0.9-2.4 [facility] ALP [Catalytic activity/Vol] 147 U/L 45-117 [facility] ALT [Catalytic activity/Vol] 47 U/L 13-56 [facility] CO2 [Moles/Vol] 24.0 mmol/L 21.0-32.0 [facility] Globulin (S) [Mass/Vol] 3.3 g/dL 2.2-4.2 [facility] Urea nitrogen/Creatinine [Mass ratio] 35.1 mg/mg 10-20 [facility] - Hematology and Cell countsOrdered By: Olivier Olmstead on 12-20-2023 MCH (RBC) [Entitic mass] 31.4 pg 27.0-32.0 [facility] MCHC (RBC) [Mass/Vol] 32.9 g/dL 32-36 [facility] Nucleated RBC/100 WBC (Bld) [Ratio] 0 % 0-5 [facility] Platelet mean volume (Bld) [Entitic vol] 10.6 fL 6.2-12.0 [facility] Platelets (Bld) [#/Vol] 235 10*3/uL 150-450 [facility] No Panel InformationOrdered By: Olivier Olmstead on 12-20-2023 Estimated GFR (MDRD) Amer 108 mL/min >60 [facility] Comment on above: GFR Calc Estimated GFR (MDRD) Non-Af Amer 89 mL/min >60 [facility] Comment on above: Non- GFR Calc RBC Auto (Bld) [#/Vol]Ordere d By: Olivier Olmstead on 12-20-2023 RBC (Bld) [#/Vol] 4.27 10*6/uL 4.2-5.4 [facility] Serum or plasma calcium hesham urement (mass/volume)Ordered By: Olivier Olmstead on 12-20-2023 Calcium [Mass/Vol] 9.4 mg/dL 8.5-10.1 [facility] Serum or plasma creatinine m easurement (mass/volume)Ordered By: Olivier Olmstead on 12-20-2023 Creatinine [Mass/Vol] 0.68 mg/dL 0.55-1.02 [facility] Comment on above: The validity of the calculated GFR & GFRAA in patients over 70 years has not been determined. Clinical correlation is essential. Serum or plasma urea nitroge n measurement (mass/volume)Ordered By: Olivier Olmstead on 12-20-2023 Urea nitrogen [Mass/Vol] 24 mg/dL 7-18 [facility] Thin prep Papanicolaou smear with manual screeningOrdered By: Olivier Olmstead on 12-20-2023 Thin prep Papanicolaou smear with manual screening 3.5 g/dL 3.2-5.0 [facility] Thin prep Papanicolaou smear with manual screening 40 U/L 15-37 [facility] Thin prep Papanicolaou smear with manual screening 3 5-15 [facility] Absolute lymphocyte countOrd ered By: Olivier Olmstead on 11-05-2023 Lymphocytes Auto (Unsp spec) [#/Vol] 1.74 10*3/uL 0.83-4.51 [facility] Basophil percentageOrdered B y: Olivier Olmstead on 11-05-2023 Basophils/100 WBC (Bld) 0.4 % 0-1 [facility] Bilirubin [Mass/Vol] 0.60 mg/dL 0.20-1.00 [facility] Comment on above: For patients on eltr ombopag therapy, use of Dim[place] TBIL is not recommended. Chloride [Moles/Vol] 111 mmol/L 98-107 [facility] Eosinophils/100 WBC (Bld) 3.9 % 0-5 [facility] Glucose [Mass/Vol] 98 mg/dL 74-106 [facility] Neutrophils (Bld) [#/Vol] 3.0 10*3/uL 2.0-7.7 [facility] Neutrophils/100 WBC (Bld) 55.6 % 47-70 [facility] Potassium [Moles/Vol] 4.0 mmol/L 3.5-5.1 [facility] Protein [Mass/Vol] 7.0 g/dL 6.4-8.2 [facility] Sodium [Moles/Vol] 141 mmol/L 136-145 [facility] WBC (Bld) [#/Vol] 5.4 10*3/uL 4.4-11.0 [facility] Blood erythrocytes count (nu mber/volume)Ordered By: Olivier Olmstead on 11-05-2023 RBC (Bld) [#/Vol] 4.42 10*6/uL 4.2-5.4 [facility] Blood hemoglobin measurement (mass/volume)Ordered By: Olivier Olmstead on 11-05-2023 Hemoglobin (Bld) [Mass/Vol] 13.7 g/dL 12.0-15.0 [facility] Blood lymphocytes/100 leukoc ytesOrdered By: Olivier Olmstead on 11-05-2023 Lymphocytes/100 WBC (Bld) 32.3 % 19-41 [facility] Blood monocytes/100 leukocyt esOrdered By: Olivier Olmstead on 11-05-2023 Monocytes/100 WBC (Bld) 7.6 % 0-10 [facility] Blood platelet mean volumeOr dered By: Olivier Olmstead on 11-05-2023 Platelet mean volume (Bld) [Entitic vol] 11.2 fL 6.2-12.0 [facility] Determination of erythrocyte mean corpuscular volume (MCV)Ordered By: Olivier Olmstead on 11-05-2023 MCV (RBC) [Entitic vol] 96.2 fL 81-99 [facility] Hematocrit Auto (Bld) [Volum e fraction]Ordered By: Olivier Ishan on 11-05-2023 Hematocrit (Bld) [Volume fraction] 42.5 % 37-47 [facility] - Chemistry and C hemistry - challengeOrdered By: Olivier Olmstead on 11-05-2023 ALP [Catalytic activity/Vol] 141 U/L 45-117 [facility] ALT [Catalytic activity/Vol] 43 U/L 13-56 [facility] CO2 [Moles/Vol] 24.0 mmol/L 21.0-32.0 [facility] Globulin (S) [Mass/Vol] 3.4 g/dL 2.2-4.2 [facility] Urea nitrogen/Creatinine [Mass ratio] 24.9 mg/mg 10-20 [facility] - Hematology and Cell countsOrdered By: Olivier Olmstead on 11-05-2023 Erythrocyte distribution width (RBC) [Entitic vol] 45.7 fL 35.1-43.9 [facility] Erythrocyte distribution width (RBC) [Ratio] 12.8 % 11.6-14.6 [facility] Immature granulocytes/100 WBC (Bld) 0.200 % 0.0-0.9 [facility] Comment on above: IG% - Immature Granu locytes (promyelocytes, myelocytes and metamyelocytes) > 1% indicates that a LEFT SHIFT is Present. MCH (RBC) [Entitic mass] 31.0 pg 27.0-32.0 [facility] Nucleated RBC/100 WBC (Bld) [Ratio] 0 % 0-5 [facility] MCHC Auto (RBC) [Mass/Vol]Or dered By: Olivier Olmstead on 11-05-2023 MCHC (RBC) [Mass/Vol] 32.2 g/dL 32-36 [facility] No Panel InformationOrdered By: Olivier Olmstead on 11-05-2023 Estimated GFR (MDRD) Amer 108 mL/min >60 [facility] Comment on above: GFR Calc Estimated GFR (MDRD) Non-Af Amer 89 mL/min >60 [facility] Comment on above: Non- GFR Calc Thyroid Stimulating Hormone (TSH) 0.56 uIU/mL 0.358-3.74 [facility] Vitamin D 25-Hydroxy 48.9 ng/mL [facility] Comment on above: Vitamin D 25(OH) Sta tus Range Deficiency <20 ng/mL (50nmol/L) Insufficiency 20 - 30 ng/mL (50 - 75 nmol/L) Sufficiency 30 - 100 ng/mL (75 - 250 nmol/L) Toxicity >100 ng/mL (>250 nmol/L) Platelets bldOrdered By: Olivier Olmstead on 11-05-2023 Platelets (Bld) [#/Vol] 231 10*3/uL 150-450 [facility] Serum or plasma albumin hesham urement (mass/volume)Ordered By: Olivier Olmstead on 11-05-2023 Albumin [Mass/Vol] 3.6 g/dL 3.2-5.0 [facility] Serum or plasma albumin/glob ulin mass ratioOrdered By: Olivier Olmstead on 11-05-2023 Albumin/Globulin [Mass ratio] 1.1 {ratio} 0.9-2.4 [facility] Serum or plasma calcium hesham urement (mass/volume)Ordered By: Olivier Olmstead on 11-05-2023 Calcium [Mass/Vol] 9.1 mg/dL 8.5-10.1 [facility] Serum or plasma creatinine m easurement (mass/volume)Ordered By: Olivier Olmstead on 11-05-2023 Creatinine [Mass/Vol] 0.68 mg/dL 0.55-1.02 [facility] Comment on above: The validity of the calculated GFR & GFRAA in patients over 70 years has not been determined. Clinical correlation is essential. Serum or plasma urea nitroge n measurement (mass/volume)Ordered By: Olivier Olmstead on 11-05-2023 Urea nitrogen [Mass/Vol] 17 mg/dL 7-18 [facility] Thin prep Papanicolaou smear with manual screeningOrdered By: Olivier Olmstead on 11-05-2023 Thin prep Papanicolaou smear with manual screening 37 U/L 15- [facility] Thin prep Papanicolaou smear with manual screening 6 5-15 [facility] Absolute lymphocyte countOrd ered By: Olivier Olmstead on 05-09-2023 Lymphocytes Auto (Unsp spec) [#/Vol] 2.32 10*3/uL 0.83-4.51 [facility] Basophil percentageOrdered B y: Olivier Olmstead on 05-09-2023 Basophils/100 WBC (Bld) 0.6 % 0-1 [facility] Bilirubin [Mass/Vol] 0.80 mg/dL 0.20-1.00 [facility] Comment on above: For patients on eltr ombopag therapy, use of Dimension [place] TBIL is not recommended. Chloride [Moles/Vol] 106 mmol/L 98-107 [facility] Eosinophils/100 WBC (Bld) 3.6 % 0-5 [facility] Glucose [Mass/Vol] 88 mg/dL 74-106 [facility] Neutrophils (Bld) [#/Vol] 3.4 10*3/uL 2.0-7.7 [facility] Neutrophils/100 WBC (Bld) 52.9 % 47-70 [facility] Potassium [Moles/Vol] 4.0 mmol/L 3.5-5.1 [facility] Protein [Mass/Vol] 6.8 g/dL 6.4-8.2 [facility] Sodium [Moles/Vol] 139 mmol/L 136-145 [facility] WBC (Bld) [#/Vol] 6.4 10*3/uL 4.4-11.0 [facility] Blood erythrocytes count (nu mber/volume)Ordered By: Olivier Olmstead on 05-09-2023 RBC (Bld) [#/Vol] 4.53 10*6/uL 4.2-5.4 [facility] Blood hemoglobin measurement (mass/volume)Ordered By: Olivier Olmstead on 05-09-2023 Hemoglobin (Bld) [Mass/Vol] 14.3 g/dL 12.0-15.0 [facility] Blood lymphocytes/100 leukoc ytesOrdered By: Olivier Olmstead on 05-09-2023 Lymphocytes/100 WBC (Bld) 36.1 % 19-41 [facility] Blood monocytes/100 leukocyt esOrdered By: Olivier Olmstead on 05-09-2023 Monocytes/100 WBC (Bld) 6.5 % 0-10 [facility] Blood platelet mean volumeOr dered By: Olivier Olmstead on 05-09-2023 Platelet mean volume (Bld) [Entitic vol] 11.1 fL 6.2-12.0 [facility] Determination of erythrocyte mean corpuscular volume (MCV)Ordered By: Olivier Olmstead on 05-09-2023 MCV (RBC) [Entitic vol] 96.5 fL 81-99 [facility] Hematocrit Auto (Bld) [Volum e fraction]Ordered By: Olivier Olmstead on 05-09-2023 Hematocrit (Bld) [Volume fraction] 43.7 % 37-47 [facility] Laboratory - Chemistry and C hemistry - challengeOrdered By: Olivier Olmstead on 05-09-2023 ALP [Catalytic activity/Vol] 146 U/L 45-117 [facility] ALT [Catalytic activity/Vol] 38 U/L 13-56 [facility] CO2 [Moles/Vol] 26.0 mmol/L 21.0-32.0 [facility] Globulin (S) [Mass/Vol] 3.2 g/dL 2.2-4.2 [facility] Urea nitrogen/Creatinine [Mass ratio] 28.6 mg/mg 10-20 [facility] Laboratory - Hematology and Cell countsOrdered By: Olivier Olmstead on 05-09-2023 Erythrocyte distribution width (RBC) [Entitic vol] 46.5 fL 35.1-43.9 [facility] Erythrocyte distribution width (RBC) [Ratio] 13.1 % 11.6-14.6 [facility] Immature granulocytes/100 WBC (Bld) 0.300 % 0.0-0.9 [facility] Comment on above: IG% - Immature Granu locytes (promyelocytes, myelocytes and metamyelocytes) > 1% indicates that a LEFT SHIFT is Present. MCH (RBC) [Entitic mass] 31.6 pg 27.0-32.0 [facility] Nucleated RBC/100 WBC (Bld) [Ratio] 0 % 0-5 [facility] MCHC Auto (RBC) [Mass/Vol]Or dered By: Olivier Olmstead on 05-09-2023 MCHC (RBC) [Mass/Vol] 32.7 g/dL 32-36 [facility] No Panel InformationOrdered By: Olivier Olmstead on 05-09-2023 Estimated GFR (MDRD) Amer 99 mL/min >60 [facility] Comment on above: GFR Calc Estimated GFR (MDRD) Non-Af Amer 82 mL/min >60 [facility] Comment on above: Non- GFR Calc Thyroid Stimulating Hormone (TSH) 1.19 uIU/mL 0.358-3.74 [facility] Vitamin D 25-Hydroxy 45.4 ng/mL [facility] Comment on above: Vitamin D 25(OH) Sta tus Range Deficiency <20 ng/mL (50nmol/L) Insufficiency 20 - 30 ng/mL (50 - 75 nmol/L) Sufficiency 30 - 100 ng/mL (75 - 250 nmol/L) Toxicity >100 ng/mL (>250 nmol/L) Platelets bldOrdered By: Olivier Olmstead on 05-09-2023 Platelets (Bld) [#/Vol] 276 10*3/uL 150-450 [facility] Serum or plasma albumin hesham urement (mass/volume)Ordered By: Olivier Olmstead on 05-09-2023 Albumin [Mass/Vol] 3.6 g/dL 3.2-5.0 [facility] Serum or plasma albumin/glob ulin mass ratioOrdered By: Olivier Olmstead on 05-09-2023 Albumin/Globulin [Mass ratio] 1.1 {ratio} 0.9-2.4 [facility] Serum or plasma calcium hesham urement (mass/volume)Ordered By: Olivier Olmstead on 05-09-2023 Calcium [Mass/Vol] 9.2 mg/dL 8.5-10.1 [facility] Serum or plasma creatinine m easurement (mass/volume)Ordered By: Olivier Olmstead on 05-09-2023 Creatinine [Mass/Vol] 0.73 mg/dL 0.55-1.02 [facility] Comment on above: The validity of the calculated GFR & GFRAA in patients over 70 years has not been determined. Clinical correlation is essential. Serum or plasma urea nitroge n measurement (mass/volume)Ordered By: Olivier Olmstead on 05-09-2023 Urea nitrogen [Mass/Vol] 21 mg/dL 7-18 [facility] Thin prep Papanicolaou smear with manual screeningOrdered By: Olivier Olmstead 05-09-2023 Thin prep Papanicolaou smear with manual screening 23 U/L 15-37 [facility] Thin prep Papanicolaou smear with manual screening 7 5-15 [facility] COVID-19 virus antigen assay Ordered By: Olivier Olmstead on 05-02-2023 SARS-CoV-2 (COVID-19) Ag IA.rapid Ql (Resp) Not detected Not Detect [facility] Comment on above: Normal Reference Ran ge: [...] 05-02-2023 Influenza Types A,B Direct FA (MADALYN) [facility] RSV Ag EIAOrdered By: Olivier shin on 05-02-2023 RSV Ag Immune stain Ql (Tiss) [facility] Absolute lymphocyte countOrd ered By: Olivier Olmstead on 11-02-2022 Lymphocytes Auto (Unsp spec) [#/Vol] 1.68 10*3/uL 0.83-4.51 [facility] Basophil percentageOrdered B y: Olivier Olmstead on 11-02-2022 Basophils/100 WBC (Bld) 0.4 % 0-1 [facility] Bilirubin [Mass/Vol] 0.60 mg/dL 0.20-1.00 [facility] Comment on above: For patients on eltr ombopag therapy, use of Dimension [place] TBIL is not recommended. Chloride [Moles/Vol] 106 mmol/L 98-107 [facility] Eosinophils/100 WBC (Bld) 3.0 % 0-5 [facility] Glucose [Mass/Vol] 81 mg/dL 74-106 [facility] Neutrophils (Bld) [#/Vol] 3.0 10*3/uL 2.0-7.7 [facility] Neutrophils/100 WBC (Bld) 57.0 % 47-70 [facility] Potassium [Moles/Vol] 3.9 mmol/L 3.5-5.1 [facility] Protein [Mass/Vol] 6.9 g/dL 6.4-8.2 [facility] Sodium [Moles/Vol] 140 mmol/L 136-145 [facility] WBC (Bld) [#/Vol] 5.3 10*3/uL 4.4-11.0 [facility] Blood erythrocytes count (nu mber/volume)Ordered By: Olivier Olmstead on 11-02-2022 RBC (Bld) [#/Vol] 4.49 10*6/uL 4.2-5.4 [facility] Blood hemoglobin measurement (mass/volume)Ordered By: Olivier Olmstead on 11-02-2022 Hemoglobin (Bld) [Mass/Vol] 14.3 g/dL 12.0-15.0 [facility] Blood lymphocytes/100 leukoc ytesOrdered By: Olivier Olmstead on 11-02-2022 Lymphocytes/100 WBC (Bld) 31.8 % 19-41 [facility] Blood monocytes/100 leukocyt esOrdered By: Olivier Ishan on 11-02-2022 Monocytes/100 WBC (Bld) 7.4 % 0-10 [facility] Blood platelet mean volumeOr dered By: Olivier Ishan on 11-02-2022 Platelet mean volume (Bld) [Entitic vol] 10.9 fL 6.2-12.0 [facility] Determination of erythrocyte mean corpuscular volume (MCV)Ordered By: Olivier Olmstead on 11-02-2022 MCV (RBC) [Entitic vol] 98.9 fL 81-99 [facility] Hematocrit Auto (Bld) [Volum e fraction][facility] Hematocrit (Bld) [Volume fraction] 44.4 % 37-47 [facility] Laboratory - Chemistry and C hemistry - challengeOrdered By: [facility] 11-02-20[facility] ALP [Catalytic activity/Vol] 117 U/L 45-117 [facility] ALT [Catalytic activity/Vol] 44 U/L 13-56 [facility] CO2 [Moles/Vol] 27.0 mmol/L 21.0-32.0 [facility] Globulin (S) [Mass/Vol] 3.3 g/dL 2.2-4.2 [facility] Urea nitrogen/Creatinine [Mass ratio] 16.3 mg/mg 10-20 [facility] Laboratory - Hematology and Cell countsOrdered By: [facility] 11-02-2022 Erythrocyte distribution width (RBC) [Entitic vol] 45.7 fL 35.1-43.9 [facility] Erythrocyte distribution width (RBC) [Ratio] 12.6 % 11.6-14.6 [facility] Immature granulocytes/100 WBC (Bld) 0.400 % 0.0-0.9 [facility] Comment on above: IG% - Immature Granu locytes (promyelocytes, myelocytes and metamyelocytes) > 1% indicates that a LEFT SHIFT is Present. MCH (RBC) [Entitic mass] 31.8 pg 27.0-32.0 [facility] Nucleated RBC/100 WBC (Bld) [Ratio] 0 % 0-5 [facility] MCHC Auto (RBC) [Mass/Vol]Or dered By: Olivier Olmstead on 11-02-2022 MCHC (RBC) [Mass/Vol] 32.2 g/dL 32-36 [facility] No Panel InformationOrdered By: Olivier Olmstead on 11-02-2022 Estimated GFR (MDRD) Amer 90 mL/min >60 [facility] Comment on above: GFR Calc Estimated GFR (MDRD) Non-Af Amer 75 mL/min >60 [facility] Comment on above: Non- GFR Calc Thyroid Stimulating Hormone (TSH) 0.43 uIU/mL 0.358-3.74 [facility] Vitamin D 25-Hydroxy 43.0 ng/mL [facility] Comment on above: Vitamin D 25(OH) Sta tus Range Deficiency <20 ng/mL (50nmol/L) Insufficiency 20 - 30 ng/mL (50 - 75 nmol/L) Sufficiency 30 - 100 ng/mL (75 - 250 nmol/L) Toxicity >100 ng/mL (>250 nmol/L) Platelets bldOrdered By: Olivier Olmstead on 11-02-2022 Platelets (Bld) [#/Vol] 273 10*3/uL 150-450 [facility] Serum or plasma albumin hesham urement (mass/volume)Ordered By: Olivier Olmstead on 11-02-2022 Albumin [Mass/Vol] 3.6 g/dL 3.2-5.0 [facility] Serum or plasma albumin/glob ulin mass ratioOrdered By: Olivier Olmstead on 11-02-2022 Albumin/Globulin [Mass ratio] 1.1 {ratio} 0.9-2.4 [facility] Serum or plasma calcium hesham urement (mass/volume)Ordered By: Olivier Olmstead on 11-02-2022 Calcium [Mass/Vol] 9.2 mg/dL 8.5-10.1 [facility] Serum or plasma creatinine m easurement (mass/volume)Ordered By: Olivier Olmstead on 11-02-2022 Creatinine [Mass/Vol] 0.80 mg/dL 0.55-1.02 [facility] Comment on above: The validity of the calculated GFR & GFRAA in patients over 70 years has not been determined. Clinical correlation is essential. Serum or plasma urea nitroge n measurement (mass/volume)Ordered By: Olivier Olmstead on 11-02-2022 Urea nitrogen [Mass/Vol] 13 mg/dL 7-18 [facility] Thin prep Papanicolaou smear with manual screeningOrdered By: Olivier Olmstead on 11-02-2022 Thin prep Papanicolaou smear with manual screening 28 U/L 15-37 [facility] Thin prep Papanicolaou smear with manual screening 7 5-15 [facility] Laboratory - Microbiology an d Antimicrobial susceptibilityon 05-30-2022 SARS-CoV-2 (COVID-19) RNA FLORENTIN+probe Ql (Unsp spec) Not detected Not Detect [facility] Work Phone: Comment on above: Normal Reference Ran ge: Not DetectedMethod:(RT-PCR) real-time reverse transcriptase PCRLuminex JULIO C Instrument*The Food and Drug Administration (FDA) has issued an Emergency Use Authorization (EAU) for the Medi[employer]ain SARS-CoV-2 Assay for the rapid detection of [...] Auto (Unsp spec) [#/Vol] 1.65 10*3/uL 0.83-4.51 [facility] Work Phone: Basophil percentageon 2021 Basophils/100 WBC (Bld) 0.4 % 0-1 [facility] Work Phone: Bilirubin [Mass/Vol] 0.40 mg/dL 0.20-1.00 [facility] Work Phone: Comment on above: For patients on eltr ombopag therapy, use of Dimension [place] TBIL is not recommended. Chloride [Moles/Vol] 109 mmol/L 98-107 [facility]: Eosinophils/100 WBC (Bld) 4.2 % 0-5 [facility] Work Phone: Glucose [Mass/Vol] 98 mg/dL 74-106 [facility] Work Phone: Neutrophils (Bld) [#/Vol] 3.3 10*3/uL 2.0-7.7 [facility] Work Phone: Neutrophils/100 WBC (Bld) 58.7 % 47-70 [facility] Work Phone: Potassium [Moles/Vol] 4.1 mmol/L 3.5-5.1 [facility] Work Phone: Protein [Mass/Vol] 6.6 g/dL 6.4-8.2 [facility] Work Phone: Sodium [Moles/Vol] 141 mmol/L 136-145 [facility] Work Phone: WBC (Bld) [#/Vol] 5.7 10*3/uL 4.4-11.0 [facility] Work Phone: Blood erythrocytes count (nu mber/volume)on 04-27-2022 RBC (Bld) [#/Vol] 4.12 10*6/uL 4.2-[facility]: Blood hemoglobin measurement (mass/volume)on 04-27-2022 Hemoglobin (Bld) [Mass/Vol] 13.4 g/dL 12.0-15.0 [facility] Work Phone: Blood lymphocytes/100 leukoc yteson 04-27-2022 Lymphocytes/100 WBC (Bld) 29.1 % 19-41 [facility] Work Phone: Blood monocytes/100 leukocyt eson 04-27-2022 Monocytes/100 WBC (Bld) 7.4 % 0-10 [facility] Work Phone: Blood platelet mean volumeon 04-27-2022 Platelet mean volume (Bld) [Entitic vol] 10.5 fL 6.2-12.0 [facility] Work Phone: Determination of erythrocyte mean corpuscular volume (MCV)on 04-27-2022 MCV (RBC) [Entitic vol] 97.6 fL 81-99 [facility] Work Phone: Hematocrit Auto (Bld) [Volum e fraction]on 04-27-2022 Hematocrit (Bld) [Volume fraction] 40.2 % 37-47 [facility] Work Phone: Laboratory - Chemistry and C hemistry - challengeon 04-27-2022 ALP [Catalytic activity/Vol] 103 U/L 45-117 [facility] Work Phone: ALT [Catalytic activity/Vol] 24 U/L 13-56 [facility] Work Phone: CO2 [Moles/Vol] 26.0 mmol/L 21.0-32.0 [facility] Work Phone: Globulin (S) [Mass/Vol] 3.0 g/dL 2.2-4.2 [facility] Work Phone: Urea nitrogen/Creatinine [Mass ratio] 26.5 mg/mg 10-20 [facility] Work Phone: Laboratory - Hematology and Cell countson 04-27-2022 Erythrocyte distribution width (RBC) [Entitic vol] 46.4 fL 35.1-43.9 [facility] Work Phone: Erythrocyte distribution width (RBC) [Ratio] 13.0 % 11.6-14.6 [facility] Work Phone: Immature granulocytes/100 WBC (Bld) 0.200 % 0.0-0.9 [facility] Work Phone: Comment on above: IG% - Immature Granu locytes (promyelocytes, myelocytes and metamyelocytes) > 1% indicates that a LEFT SHIFT is Present. MCH (RBC) [Entitic mass] 32.5 pg 27.0-32.0 [facility] Work Phone: Nucleated RBC/100 WBC (Bld) [Ratio] 0 % 0-5 [facility] Work Phone: MCHC Auto (RBC) [Mass/Vol]on 04-27-2022 MCHC (RBC) [Mass/Vol] 33.3 g/dL 32-36 [facility] Work Phone: No Panel Informationon 04-27 Estimated GFR (MDRD) Amer 91 mL/min >60 [facility] Work Phone: Comment on above: GFR Calc Estimated GFR (MDRD) Non-Af Amer 76 mL/min >60 [facility] Work Phone: Comment on above: Non- GFR Calc Thyroid Stimulating Hormone (TSH) 0.59 uIU/mL 0.358-3.74 [facility] Work Phone: Vitamin D 25-Hydroxy 34.2 ng/mL [facility] Work Phone: Comment on above: Vitamin D 25(OH) Sta tus Range Deficiency <20 ng/mL (50nmol/L) Insufficiency 20 - 30 ng/mL (50 - 75 nmol/L) Sufficiency 30 - 100 ng/mL (75 - 250 nmol/L) Toxicity >100 ng/mL (>250 nmol/L) Platelets bldon 04-27-2022 Platelets (Bld) [#/Vol] 247 10*3/uL 150-450 [facility] Work Phone: Serum or plasma albumin hesham urement (mass/volume)on 04-27-2022 Albumin [Mass/Vol] 3.6 g/dL 3.2-5.0 [facility] Work Phone: Serum or plasma albumin/glob ulin mass ratioon 04-27-2022 Albumin/Globulin [Mass ratio] 1.2 {ratio} 0.9-2.4 [facility] Work Phone: Serum or plasma calcium hesham urement (mass/volume)on 04-27-2022 Calcium [Mass/Vol] 9.2 mg/dL 8.5-10.1 [facility] Work Phone: Serum or plasma creatinine m easurement (mass/volume)on 04-27-2022 Creatinine [Mass/Vol] 0.79 mg/dL 0.55-1.02 [facility] Work Phone: Comment on above: The validity of the calculated GFR & GFRAA in patients over 70 years has not been determined. Clinical correlation is essential. Serum or plasma urea nitroge n measurement (mass/volume)on 04-27-2022 Urea nitrogen [Mass/Vol] 21 mg/dL 7-18 [facility] Work Phone: Thin prep Papanicolaou smear with manual screeningon 04-27-2022 Thin prep Papanicolaou smear with manual screening 15 U/L 15-37 [facility] Work Phone: Thin prep Papanicolaou smear with manual screening 6 5-15 [facility] Work Phone: Absolute lymphocyte counton 10-26-2021 Lymphocytes Auto (Unsp spec) [#/Vol] 1.64 10*3/uL 0.83-4.51 [facility] Work Phone: Basophil percentageon 2020 Bilirubin [Mass/Vol] 0.30 mg/dL 0.20-1.00 [facility] Work Phone: Comment on above: For patients on eltr ombopag therapy, use of Dimension [place] TBIL is not recommended. Chloride [Moles/Vol] 108 mmol/L 98-107 [facility] Work Phone: Eosinophils/100 WBC (Bld) 4.2 % 0-5 [facility] Work Phone: Glucose [Mass/Vol] 90 mg/dL 74-106 [facility] Work Phone: Comment on above: Please note revised GLUCOSE reference range effective 2017. Neutrophils (Bld) [#/Vol] 3.0 10*3/uL 2.0-7.7 [facility] Work Phone: Potassium [Moles/Vol] 4.3 mmol/L 3.5-5.1 [facility] Work Phone: Protein [Mass/Vol] 6.9 g/dL 6.4-8.[facility]: Sodium [Moles/Vol] 141 mmol/L 136-145 [facility] Work Phone: WBC (Bld) [#/Vol] 5.3 10*3/uL 4.4-11.0 [facility] Work Phone: Blood erythrocytes count (nu mber/volume)on 10-26-2021 RBC (Bld) [#/Vol] 4.19 10*6/uL 4.2-5.4 [facility] Work [facility]: Blood hemoglobin measurement (mass/volume)on 10-26-2021 Hemoglobin (Bld) [Mass/Vol] 13.3 g/dL 12.0-15.0 [facility] Work Phone: Blood lymphocytes/100 leukoc yteson 10-26-2021 Lymphocytes/100 WBC (Bld) 31.1 % 19-41 [facility] Work Phone: Blood monocytes/100 leukocyt eson 10-26-2021 Monocytes/100 WBC (Bld) 7.4 % 0-10 [facility] Work Phone: Blood platelet mean volumeon 10-26-2021 Platelet mean volume (Bld) [Entitic vol] 10.7 fL 6.2-12.0 [facility] Work Phone: Determination of erythrocyte mean corpuscular volume (MCV)on 10-26-2021 MCV (RBC) [Entitic vol] 96.2 fL 81-99 [facility] Work Phone: Hematocrit Auto (Bld) [Volum e fraction]on 10-26-2021 Hematocrit (Bld) [Volume fraction] 40.3 % 37-47 [facility] Work Phone: Laboratory - Chemistry and C hemistry - challengeon 10-26-2021 ALP [Catalytic activity/Vol] 140 U/L 45-117 [facility] Work Phone: ALT [Catalytic activity/Vol] 34 U/L 13-56 [facility] Work Phone: CO2 [Moles/Vol] 27.0 mmol/L 21.0-32.0 [facility] Work Phone: Globulin (S) [Mass/Vol] 3.4 g/dL 2.2-4.2 [facility] Work Phone: Urea nitrogen/Creatinine [Mass ratio] 22.1 mg/mg 10-20 [facility] Work Phone: Laboratory - Hematology and Cell countson 10-26-2021 Basophils/100 WBC (Unsp spec) 0.6 % 0-1 [facility] Work Phone: Erythrocyte distribution width (RBC) [Entitic vol] 45.4 fL 35.1-43.9 [facility] Work Phone: [phone] Erythrocyte distribution width (RBC) [Ratio] 12.8 % 11.6-14.6 [facility] Work Phone: Immature granulocytes/100 WBC (Bld) 0.200 % 0.0-0.9 [facility] Work Phone: Comment on above: IG% - Immature Granu locytes (promyelocytes, myelocytes and metamyelocytes) > 1% indicates that a LEFT SHIFT is Present. MCH (RBC) [Entitic mass] 31.7 pg 27.0-32.0 [facility] Work Phone: Neutrophils/100 WBC (Bld) 56.5 % 47-70 [facility] Work Phone: Nucleated RBC/100 WBC (Bld) [Ratio] 0 % 0-5 [facility] Work Phone: MCHC Auto (RBC) [Mass/Vol]on 10-26-2021 MCHC (RBC) [Mass/Vol] 33.0 g/dL 32-36 [facility] Work Phone: No Panel Informationon 10-26 Estimated GFR (MDRD) Amer 109 mL/min >60 [facility] Work Phone: Comment on above: GFR Calc Estimated GFR (MDRD) Non-Af Amer 90 mL/min >60 [facility] Work Phone: Comment on above: Non- GFR Calc Thyroid Stimulating Hormone (TSH) 0.88 uIU/mL 0.358-3.74 [facility] Work Phone: Vitamin D 25-Hydroxy 42.0 ng/mL [facility] Work Phone: Comment on above: Vitamin D 25(OH) Sta tus Range Deficiency <20 ng/mL (50nmol/L) Insufficiency 20 - 30 ng/mL (50 - 75 nmol/L) Sufficiency 30 - 100 ng/mL (75 - 250 nmol/L) Toxicity >100 ng/mL (>250 nmol/L) Platelets bldon 10-26-2021 Platelets (Bld) [#/Vol] 246 10*3/uL 150-450 [facility] Work Phone: Serum or plasma albumin hesham urement (mass/volume)on 10-26-2021 Albumin [Mass/Vol] 3.5 g/dL 3.2-5.0 [facility] Work Phone: Serum or plasma albumin/glob ulin mass ratioon 10-26-2021 Albumin/Globulin [Mass ratio] 1.0 {ratio} 0.9-2.4 [facility] Work Phone: Serum or plasma calcium hesham urement (mass/volume)on 10-26-2021 Calcium [Mass/Vol] 9.0 mg/dL 8.5-10.1 [facility] Work Phone: Serum or plasma creatinine m easurement (mass/volume)on 10-26-2021 Creatinine [Mass/Vol] 0.68 mg/dL 0.55-1.02 [facility] Work Phone: Comment on above: The validity of the calculated GFR & GFRAA in patients over 70 years has not been determined. Clinical correlation is essential. Serum or plasma urea nitroge n measurement (mass/volume)on 10-26-2021 Urea nitrogen [Mass/Vol] 15 mg/dL 7-18 [facility] Work Phone: Thin prep Papanicolaou smear with manual screeningon 10-26-2021 Thin prep Papanicolaou smear with manual screening 24 U/L 15-37 [facility] Work Phone: Thin prep Papanicolaou smear with manual screening 6 5-15 [facility] Work Phone: Office Visiton 05-18-2017 Documentation of current medications (procedure) Done Invalid Interpretation Code [facility] Work Phone: [phone] Fall risk assessment Yes Invalid Interpretation Code [facility] Work Phone: [phone] Clinical Lists Update: 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 05-15-2017 Left ventricular Ejection fraction 60 % Invalid Interpretation Code [facility] Work Phone: [phone] Clinical Lists Update: 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 09-18-2016 Cholesterol 205 mg/dL Invalid Interpretation Code [employer] Work Phone: [phone] HDL Cholesterol 59 mg/dL Invalid Interpretation Code [facility] Work Phone: [phone] LDL Cholesterol 120 mg/dL Invalid Interpretation Code [facility] [employer] Work Phone: [phone] Triglyceride 132 mg/dL Invalid Interpretation Code [facility] Work Phone: [phone] Lab Report: Basic Metabolic Profile (BMP)on 06-01-2016 Anion gap 7 mmol/L Invalid Interpretation Code 5-15 [facility] [employer] Work Phone: [phone] BUN/Creatinine Ratio 28.0 RATIO High 10-20 [facility] Work Phone: [phone] Calcium 9.2 mg/dL Invalid Interpretation Code 8.5-10.1 [facility] [employer] Work Phone: [phone] Chloride 108 mmol/L High 98-107 [facility] [employer] Work Phone: [phone] CO2 26.0 mmol/L Invalid Interpretation Code 21.0-32.0 [facility] Work Phone: [phone] Creatinine 0.61 mg/dL Invalid Interpretation Code 0.55-1.20 [facility] Work Phone: [phone] eGFR (non-black) 104 mL/min/{1.73_m2} Invalid Interpretation Code >60 [facility] Work Phone: [phone] eGFR (non-black) 126 mL/min/{1.73_m2} Invalid Interpretation Code >60 [facility] Work Phone: [phone] Glucose 86 mg/dL Invalid Interpretation Code 70-110 [facility] Work Phone: [phone] Glucose mass conc 86 mg/dL Invalid Interpretation Code 70-110 [facility] Work Phone: [phone] Potassium molar conc 4.3 mmol/L Invalid Interpretation Code 3.5-5.1 [employer] Phone: [phone] Sodium 141 mmol/L Invalid Interpretation Code 136-145 [facility] Phone: [phone] Urea nitrogen 17 mg/dL Invalid Interpretation Code 7-18 [employer] Phone: [phone] Office Visit: [facility] 06-01-20 16 Dietary management education, guidance, and counseling (procedure) yes Invalid Interpretation Code [employer] Phone: [phone] Documentation of current medications (procedure) Done Invalid Interpretation Code [employer] Phone: [phone] Clinical Lists Update: 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 04-21-2016 Alanine aminotransferase (ALT) 22 U/L Invalid Interpretation Code [facility] Work Phone: [phone] Albumin 4.1 g/dL Invalid Interpretation Code [employer] Phone: [phone] Alkaline phosphatase (ALP) 116 U/L Invalid Interpretation Code [employer] Phone: [phone] Aspartate aminotransferase (AST) 29 U/L Invalid Interpretation Code [facility] Work Phone: [phone] Bilirubin (total) 0.3 mg/dL Invalid Interpretation Code [employer] Phone: [phone] Erythrocyte distribution width Auto Ratio (RBC) 13.2 % Invalid Interpretation Code [facility] Work Phone: [phone] Erythrocytes (RBC) 4.33 10*6/uL Invalid Interpretation Code [facility] Work Phone: [phone] Hematocrit (HCT) 42.4 % Invalid Interpretation Code [facility] Work Phone: [phone] Hemoglobin mass conc (Bld) 14.0 g/dL Invalid Interpretation Code [facility] Work Phone: [phone] MCH 32.3 pg Invalid Interpretation Code [facility] Work Phone: [phone] MCHC mass conc (RBC) 33.0 g/dL Invalid Interpretation Code [facility] Work Phone: [phone] MCV 97.9 fL Invalid Interpretation Code [facility] Work Phone: [phone] Platelets 254 10*3/mm3 Invalid Interpretation Code [facility] Work Phone: [phone] PMV by Abran 11.5 fL Invalid Interpretation Code [facility] Work Phone: [phone] Protein 7.0 g/dL Invalid Interpretation Code [facility] Work Phone: [phone] Thyroid stimulating hormone (TSH) 4.650 u[iU]/mL Invalid Interpretation Code [facility] Work Phone: [phone] WBC (Leukocytes) 5.98 10*3/uL Invalid Interpretation Code [facility] Work Phone: [phone] Office Visiton 12-01-2015 Tobacco use CPHS Former smoker Invalid Interpretation Code [facility] Phone: [phone] Replaced Document: Christin Ziegler CG Observationson 12-01-2015 BUN (urea nitrogen) Atrial Rhythm P:QRS - 1:1, Abnormal P axis, H Rate 61-Left bundle branch block. ABNORMAL Invalid Interpretation Code [facility] Work Phone: [phone] EKG QRS axis -50 deg Invalid Interpretation Code [facility] Work Phone: [phone] GE use only - for [employer] import when terms are not otherwise specified 449 ms Invalid Interpretation Code [facility] Work Phone: [phone] P [place] -90 deg Invalid Interpretation Code [facility] Work Phone: [phone] P wave axis, electrocardiogram -90 deg Invalid Interpretation Code [facility] Work Phone: [phone] SD Interval 182 ms Invalid Interpretation Code [facility] Work Phone: [phone] SD interval, electrocardiogram 182 ms Invalid Interpretation Code [facility] Work Phone: [phone] Pulse (Heart Rate) 61 /min Invalid Interpretation Code [facility] Work Phone: [phone] QRS axis, electrocardiogram -50 deg Invalid Interpretation Code [facility] Work Phone: [phone] QRS Duration 132 ms Invalid Interpretation Code [facility] Work Phone: [phone] QRS duration, electrocardiogram 132 ms Invalid Interpretation Code [facility] Work Phone: [phone] QT Interval new path ms Invalid Interpretation Code [facility] Work Phone: [phone] QT interval, electrocardiogram new path ms Invalid Interpretation Code [facility] Work Phone: [phone] QTc Valentino 449 ms Invalid Interpretation Code [facility] Work Phone: [phone] T [place] -1 deg Invalid Interpretation Code [facility] Work Phone: [phone] T wave axis, electrocardiogram -1 deg Invalid Interpretation Code [facility] Work Phone: [phone] Clinical Lists Update: [employer] employee relations manager 05-06-2015 very low density lipoproteins 14 mg/dL Invalid Interpretation Code [facility] Phone: [phone] Office Visit: [facility] 04-21-20 15 General cardiovascular disease 10Y risk [#] [place]D'Agosterasm[place] 8 % Invalid Interpretation Code [facility] Work Phone: [phone] Office Visiton 10-05-2014 cardiac risk group B Invalid Interpretation Code [facility] Phone: [phone] Replaced Document: Midmark E CG Observationson 06-04-2013 Pulse (Heart Rate) 437 ms Invalid Interpretation Code [facility] Work Phone: [phone] Lab Reporton 07-22-2012 Bilirubin (direct) 0.15 mg/dL Invalid Interpretation Code [facility] Work Phone: [phone] Lab Reporton 03-07-2012 Albumin/Globulin Ratio 1.2 {ratio} Invalid Interpretation Code [facility] Work Phone: [phone] Globulin 3.1 g/dL Invalid Interpretation Code [facility] Work Phone: [phone] MCHC mass conc (RBC) 34.5 % Invalid Interpretation Code [facility] Work Phone: [phone] Culture, urine Bacteria identified Cx Nom (U) Escherichia coli [facility] Work Phone: No Panel Information Influenza Types A,B Direct FA (MADALYN) [facility] Work Phone: Vital Signs Date Time Vital Sign Value Performing Clinician Faci lity 06-08-2025 02:42-0400 Body temperature 98 [degF] Dr. Olivier Olmstead MD Work Phone: [facility] 06-08-2025 02:42-0400 Diastolic blood pressure 92 mm[Hg] Dr. Olivier Olmstead MD Work Phone: [facility] 06-08-2025 02:42-0400 Heart rate 118 /min Dr. Olivier Olmstead MD Work Phone: [facility] 06-08-2025 02:42-0400 Respiratory rate 18 /min Dr. Olivier Olmstead MD Work Phone: [facility] 06-08-2025 02:42-0400 SaO2% (BldA) [Mass fraction] 94 % Dr. Olivier Olmstead MD Work Phone: [facility] 06-08-2025 02:42-0400 Systolic blood pressure 124 mm[Hg] Dr. Olivier Olmstead MD Work Phone: [facility] 06-07-2025 20:05-0400 Body mass index (BMI) [Ratio] 38.4 kg/m2 Dr. Olivier Olmstead MD Work Phone: [facility] 06-07-2025 20:05-0400 Body weight 98.[address] Olivier Olmstead MD Work Phone: [facility] 06-07-2025 20:03-0400 Body height 160.[address] Olivier Olmstead MD Work Phone: [facility] 05-18-2025 07:19-0400 Body height 160.[address] Olivier Olmstead MD Work Phone: [facility] 05-18-2025 07:19-0400 Body mass index (BMI) [Ratio] 29.9 kg/m2 Dr. Olivier Olmstead MD Work Phone: [facility] 05-18-2025 07:19-0400 Body weight 76.[address] Olivier Olmstead MD Work Phone: 6(888)216-606819 [place] [address] 05-18-2025 07:19-0400 Diastolic blood pressure 83 mm[Hg] Dr. Olivier Olmstead MD Work Phone: 9(164)454-40[address] [place] [address] 05-18-2025 07:19-0400 Heart rate 116 /min Dr. Olivier Olmstead MD Work Phone: 0(696)086-171967 [address] 05-18-2025 07:19-0400 Respiratory rate 18 /min Dr. Olivier Olmstead MD Work Phone: 9(372)516-788267 [address] 05-18-2025 07:19-0400 SaO2% (BldA) [Mass fraction] 95 % Dr. Olivier Olmstead MD Work Phone: [facility] 05-18-2025 07:19-0400 Systolic blood pressure 123 mm[Hg] Dr. Olivier Olmstead MD Work Phone: [facility] 04-20-2025 14:39-0400 Body temperature 97.6 [degF] Dr. Olivier Olmstead MD Work Phone: [facility] 04-20-2025 14:39-0400 Diastolic blood pressure 87 mm[Hg] Dr. Olivier Olmstead MD Work Phone: [facility] 04-20-2025 14:39-0400 Heart rate 88 /min Dr. Olivier Olmstead MD Work Phone: [facility] 04-20-2025 14:39-0400 Respiratory rate 16 /min Dr. Olivier Olmstead MD Work Phone: [facility] 04-20-2025 14:39-0400 SaO2% (BldA) [Mass fraction] 96 % Dr. Olivier Olmstead MD Work Phone: 5(753)596-[address] [place] [address] 04-20-2025 14:39-0400 Systolic blood pressure 149 mm[Hg] Dr. Olivier Olmstead MD Work Phone: 2(758)925-350619 [place] [address] 04-20-2025 09:40-0400 Body height 160.[address] Olivier Olmstead MD Work Phone: 3(039)693-370430 [place] [address] 12-25-2024 11:27-0500 Body height 160.[address] Olivier Olmstead MD Work Phone: 9(546)442-681330 [place] [address] 12-25-2024 11:27-0500 Body mass index (BMI) [Ratio] 29.7 kg/m2 Dr. Olivier Olmstead MD Work Phone: 1(617)510-412830 [place] [address] 12-25-2024 11:27-0500 Body weight 76.[address] Olivier Olmstead MD Work Phone: 0(945)167-488530 [place] [address] 12-25-2024 11:27-0500 Diastolic blood pressure 82 mm[Hg] Dr. Olivier Olmstead MD Work Phone: 7(570)482-486930 [place] [address] 12-25-2024 11:27-0500 Heart rate 84 /min Dr. Olivier Olmstead MD Work Phone: 3(540)994-389830 [place] [address] 12-25-2024 11:27-0500 Respiratory rate 18 /min Dr. Olivier Olmstead MD Work Phone: 6(585)989-300930 [place] [address] 12-25-2024 11:27-0500 SaO2% (BldA) [Mass fraction] 94 % Dr. Olivier Olmstead MD Work Phone: 1(375)096-731630 [place] [address] 12-25-2024 11:27-0500 Systolic blood pressure 137 mm[Hg] Dr. Olivier Olmstead MD Work Phone: 3(672)217-820419 [place] [address] 11-21-2024 13:53-0500 Body temperature 98 [degF] Dr. Olivier Olmstead MD Work Phone: 0(324)737-104030 [place] [address] 11-21-2024 13:53-0500 Diastolic blood pressure 56 mm[Hg] Dr. Olivier Olmstead MD Work Phone: [facility] 11-21-2024 13:53-0500 Heart rate 66 /min Dr. Olivier Olmstead MD Work Phone: [facility] 11-21-2024 13:53-0500 Respiratory rate 16 /min Dr. Olivier Olmstead MD Work Phone: 7(105)447-954719 [place] [address] 11-21-2024 13:53-0500 SaO2% (BldA) [Mass fraction] 96 % Dr. Olivier Olmstead MD Work Phone: 3(033)277-915719 [place] [address] 11-21-2024 13:53-0500 Systolic blood pressure 137 mm[Hg] Dr. Olivier Olmstead MD Work Phone: 1(091)017-925030 [place] [address] 11-21-2024 11:30-0500 Body mass index (BMI) [Ratio] 29.7 kg/m2 Dr. Olivier Olmstead MD Work Phone: 4(036)780-178719 [place] [address] 11-21-2024 11:30-0500 Body weight 76.[address] Olivier Olmstead MD Work Phone: 0(751)162-963730 [place] [address] 01-03-2024 09:33-0500 Body height 160.[address] Olivier Olmstead Work Phone: 6(656)070-920319 [place] [address] 01-03-2024 09:33-0500 Body mass index (BMI) [Ratio] 31.1 kg/m2 Dr. Olivier Olmstead Work Phone: 5(952)163-619319 [place] [address] 01-03-2024 09:33-0500 Body temperature 97 [degF] Dr. Olivier Olmstead Work Phone: 8(266)901-286619 [place] [address] 01-03-2024 09:33-0500 Body weight 79.[address] Olivier Olmstead Work Phone: 9(991)180-372919 [place] [address] 01-03-2024 09:33-0500 Diastolic blood pressure 76 mm[Hg] Dr. Olivier Olmstead Work Phone: [facility] 01-03-2024 09:33-0500 Heart rate 93 /min Dr. Olivier Olmstead Work Phone: [facility] 01-03-2024 09:33-0500 Respiratory rate 17 /min Dr. Olivier Olmstead Work Phone: [facility] 01-03-2024 09:33-0500 SaO2% (BldA) [Mass fraction] 96 % Dr. Olivier Olmstead Work Phone: [facility] 01-03-2024 09:33-0500 Systolic blood pressure 158 mm[Hg] Dr. Olivier Olmstead Work Phone: [facility] 11-28-2023 13:29-0500 Body height 160.[address] Olivier Olmstead Work Phone: 5(321)858-093219 [place] [address] 11-28-2023 13:29-0500 Body mass index (BMI) [Ratio] 31.3 kg/m2 Dr. Olivier Olmstead Work Phone: 6(561)358-281819 [place] [address] 11-28-2023 13:29-0500 Body weight 80.[address] Olivier Olmstead Work Phone: [facility] 11-28-2023 13:29-0500 Diastolic blood pressure 74 mm[Hg] Dr. Olivier Olmstead Work Phone: [facility] 11-28-2023 13:29-0500 Heart rate 88 /min Dr. Olivier Olmstead Work Phone: [facility] 11-28-2023 13:29-0500 Respiratory rate 20 /min Dr. Olivier Olmstead Work Phone: [facility] 11-28-2023 13:29-0500 Systolic blood pressure 136 mm[Hg] Dr. Olivier Olmstead Work Phone: [facility] 09-13-2022 13:53-0500 Body height 160.[address] Olivier Olmstead Work Phone: [facility] 09-13-2022 13:53-0500 Body mass index (BMI) [Ratio] 32.9 kg/m2 Dr. Olivier Olmstead Work Phone: [facility] 09-13-2022 13:53-0500 Body weight 84.[address] Olivier Olmstead Work Phone: [facility] 09-13-2022 13:53-0500 Diastolic blood pressure 82 mm[Hg] Dr. Olivier Olmstead Work Phone: [facility] 09-13-2022 13:53-0500 Heart rate 84 /min Dr. Olivier Olmstead Work Phone: [facility] 09-13-2022 13:53-0500 Respiratory rate 18 /min Dr. Olivier Olmstead Work Phone: [facility] 09-13-2022 13:53-0500 Systolic blood pressure 138 mm[Hg] Dr. Olivier Olmstead Work Phone: [facility] 05-11-2022 11:44-0400 Body height 160.[address] Olivier Olmstead Work Phone: [facility] Work Phone: 05-11-2022 11:44-0400 Body mass index (BMI) [Ratio] 31.1 kg/m2 Dr. Olivier Olmstead Work Phone: [facility] Work Phone: 05-11-2022 11:44-0400 Body weight 79.[address] Olivier Olmstead Work Phone: [facility] Work Phone: 05-18-2017 11:03-0400 BMI (Body Mass Index) 34.45 kg/m2 [facility] Work Phone: 05-18-2017 11:03-0400 BP Diastolic 60 mm[Hg] Jitendralinda [facility] Work Phone: 05-18-2017 11:03-0400 BP Systolic 102 mm[Hg] [facility] Work Phone: 05-18-2017 11:03-0400 Height 160.02 cm Jitendralinda Khaiearline [facility] Work Phone: 05-18-2017 11:03-0400 Pulse (Heart Rate) 68 /min Bossman Mcbride [facility] Work Phone: 05-18-2017 11:03-0400 Respiratory Rate 20 /min Harlinda DeFinearline [facility] Work Phone: 05-18-2017 11:03-0400 Weight 88.23 kg Harlinda DeFinearline [facility] Work Phone: 06-01-2016 14:31-0400 BMI (Body Mass Index) 35.03 kg/m2 Fabiola cOhoa RN [facility] Work Phone: 06-01-2016 14:31-0400 BP Diastolic 68 mm[Hg] Fabiola Ochoa RN [facility] Work Phone: 06-01-2016 14:31-0400 BP Systolic 110 mm[Hg] Fabiola Ochoa RN [facility] Work Phone: 06-01-2016 14:31-0400 BSA (Body Surface Area) 1.93 m2 Fabiola Ochoa RN [facility] Work Phone: 06-01-2016 14:31-0400 Pulse (Heart Rate) 72 /min Fabiola Ochoa RN [facility] Work Phone: 06-01-2016 14:31-0400 Respiratory Rate 16 /min Fabiola Ochoa RN [facility] Work Phone: 06-01-2016 14:31-0400 Weight 89.72 kg Fabiola Ochoa RN [facility] Work Phone: 02-22-2012 11:41-0400 Height 160.02 cm Fabiola Ochoa RN [facility] Work Phone: Encounters Encounter Date Encounter Type Care Provider Facility Start: 06-11-2025 Non-patient / Non-visit Dr. Hernán RHODES -[facility] Start: 06-11-2025 End: 06-11-[address] Olivier Olmstead MD Work Phone: -Cardiovascular Services Start: 06-11-2025 End: 06-11-2025 Patient encounter procedure Arnie CHAND -[facility] Work Phone: Start: 06-11-2025 End: 06-11-[facility] Start: 06-07-2025 End: 06-08-2025 Emergency department patient visit Dr. Olivier Olmstead MD Work Phone: -Emergency Department Work Phone: Start: 06-02-2025 End: 06-02-[address] Olivier Olmstead MD Work Phone: -Radiology [facility] Start: 06-02-2025 End: 06-02-[address] Olivier Olmstead MD -Radiology [facility] Work Phone: Start: 06-02-2025 End: 06-02-2025 ambulatory Olivier Olmstead Facility:[facility] Start: 05-18-2025 End: 05-18-2025 Patient encounter procedure Arnie CHAND -[facility] Work Phone: Start: 05-18-2025 End: 05-18-[address] Olivier Olmstead MD Work Phone: -[facility] Start: 04-20-2025 End: 04-20-2025 Emergency department patient visit Dr. Olivier Olmstead MD Work Phone: -Emergency Department Work Phone: Start: 04-06-2025 End: 04-06-[address] Olivier Olmstead MD Work Phone: [facility] Work Phone: Start: 04-06-2025 End: 04-06-[address] Olivier Olmstead MD -Cat Scan [facility] Work Phone: Start: 04-06-2025 End: 04-06-2025 ambulatory Olivier Olmstead Facility:[facility] Start: 12-31-2024 End: 12-31-[address] Olivier Olmstead MD Work Phone: [facility] Work Phone: Start: 12-31-2024 End: 12-31-[address] Olivier Olmstead MD -Laboratory, Phy Office 3rd [facility] Start: 12-31-2024 End: 12-31-2024 ambulatory [facility] Facility:[facility] Start: 12-25-2024 End: 12-25-[address] Anastacio Scruggs MD -[facility] Work Phone: Start: 12-25-2024 End: 12-25-2024 ambulatory Anastacio Scruggs Facility:[facility] Start: 11-21-2024 End: 11-21-[address] Olivier Olmstead MD -Medical Out Work Phone: Start: 11-21-2024 End: 11-21-2024 ambulatory [facility] Facility:[facility] Start: 11-20-2024 End: 11-20-[address] Olivier Olmstead MD -Cat Scan, [facility] Work Phone: Start: 11-20-2024 End: 11-20-2024 ambulatory [facility] Facility:[facility] Start: 07-23-2024 End: 07-23-2024 ambulatory [facility] Facility:[facility] Start: 07-07-2024 End: 07-07-2024 ambulatory [facility] Facility:[facility] Start: 01-16-2024 End: 01-16-[address] Olivier Olmstead Work Phone: [facility] Work Phone: Start: 01-16-2024 End: 01-16-[address] Olivier Olmstead Work Phone: [facility] Work Phone: Start: 01-03-2024 Non-patient / Non-visit Dr. Dre Olmstead Work Phone: [facility] Work Phone: Start: 01-03-2024 End: 01-03-[address] Olivier Olmstead Work Phone: [facility] Work Phone: Start: 01-02-2024 Non-patient / Non-visit Dr. Dre Olmstead Work Phone: [facility] Work Phone: Start: 01-02-2024 Non-patient / Non-visit Dr. Dre Olmstead Work Phone: [facility] Start: 01-02-2024 End: 01-02-[address] Olivier Olmstead Work Phone: [facility] Work Phone: Start: 01-02-2024 End: 01-02-[address] [facility] Work [facility] Start: 12-24-2023 End: 12-24-[address] Olivier Olmstead Work Phone: [facility] Work Phone: Start: 12-24-2023 End: 12-24-[address] Olivier Olmstead Work Phone: [facility]-Laboratory, Specimen Work Phone: Start: 12-20-2023 End: 12-20-[address] Olivier Olmstead Work Phone: [facility] Work Phone: Start: 12-20-2023 End: 12-20-[address] Olivier Olmstead Work Phone: [facility]-Cat Scan, [facility] Work Phone: Start: 12-03-2023 End: 12-03-[address] Olivier Olmstead Work Phone: [facility] Work Phone: Start: 12-03-2023 End: 12-03-[address] Olivier Olmstead Work Phone: [facility]-Outpatient Breast Imaging Work Phone: Start: 11-28-2023 End: 11-28-[address] Olivier Olmstead Work Phone: [facility] Work Phone: Start: 11-05-2023 End: 11-05-2023 ambulatory [facility] Work Phone: Start: 11-05-2023 End: 11-05-2023 [facility] Start: 05-09-2023 End: 05-09-2023 ambulatory [facility] Work Phone: Start: 05-09-2023 End: 05-09-2023 [facility] Start: 05-02-2023 End: 05-02-2023 ambulatory [facility] Work Phone: Start: 05-02-2023 End: 05-02-2023 [facility] Work [facility] Start: 11-02-2022 End: 11-02-[address] Olivier Olmstead Work Phone: [facility] Work Phone: Start: 11-02-2022 End: 11-02-[address] Olivier Olmstead [facility] Start: 09-13-2022 End: 09-13-[address] Olivier Olmstead Work Phone: [facility] Start: 05-30-2022 End: 05-30-[address] Olivier Olmstead Work Phone: [facility]-Pulmonary Services/Neurology Start: 05-24-2022 End: 05-24-[address] Olivier Olmstead Work Phone: [facility] Start: 05-17-2022 End: 05-17-[address] Olivier Olmstead Work Phone: [facility] Start: 05-11-2022 End: 05-11-[address] Olivier Olmstead Work Phone: [facility] Start: 04-27-2022 End: 04-27-2022 Patient encounter procedure [facility]-Laboratory, Phy Office 3rd Flr Start: 03-01-2022 End: 03-01-2022 Patient encounter procedure [facility]-Radiology, [facility] Start: 02-01-2022 End: 02-01-2022 Patient encounter procedure [facility]-Outpatient Breast Imaging Start: 10-26-2021 Patient encounter procedure [facility]-Laboratory, y Office 3rd Flr Procedures Date Procedure Procedure Detail Performing Clinician Start: 06-07-2025 Plain chest X-ray Dr. Blue Olmstead MD Work Phone: Start: 06-07-[address] Olivier Olmstead MD Work Phone: Start: 06-02-2025 X-ray of lumbosacral spine Dr. Olivier Olmstead MD Work Phone: Start: 04-20-2025 X-ray of chest, PA a [...] PA-C Work Phone: Start: 06-01-2016 End: 06-01-2016 PFAndria Bhatia PA-C Work Phone: Start: 06-01-2016 End: 06-02-2016 *BMP Sondra Bhatia PA-C Work Phone: Start: 06-01-2016 End: 06-01-2016 Follow Up Appt 6 months Sondra bahena PA-C Work Phone: Start: 06-01-2016 End: 06-01-2016 Follow Up Appt Other Sondra martin PA-C Work Phone: Start: 06-01-2016 End: 06-01-2016 PFAndria Bhatia PA-C Work Phone: Start: 12-01-2015 End: 06-01-2016 Ecg routine ecg w/least 12 lds w/i&r Claude Good MD Start: 12-01-2015 End: 06-01-2016 Follow Up Appt 6 months Claude Good MD Start: 12-01-2015 End: 06-01-2016 SHANNONM Claude Good MD Start: 12-01-2015 End: 06-01-2016 Electrocardiogram, complete Claude rich MD Start: 12-01-2015 End: 06-01-2016 Follow Up Appt 6 months Claude Good MD Start: 12-01-2015 End: 06-01-2016 MMM Claude Good MD Start: 04-21-2015 End: 04-22-2015 Documentation of current medications Sondra Bhatia PA-C Work Phone: Start: 04-21-2015 End: 04-21-2015 Follow Up Appt 6 months Sondra bahena PA-C Work Phone: Start: 04-21-2015 End: 04-21-2015 PF Sondra Bhatia PA-C Work Phone: Start: 04-21-2015 [...] PA-C Work Phone: Start: 06-04-2013 End: 06-04-2013 [facility] Sondra Bhatia PA-C Work Phone: Start: [...] Good MD Influenza Types A,B Direct FA (MADALYN) Dr. Olivier Olmstead Work Phone: Respiratory syncytia l virus antigen assay Dr. Olivier Olmstead Work Phone: Urine culture Plan of Treatment Date Care Activity Detail Author Start: 06-08-2025 [facility] Start: 06-07-2025 [facility] Start: 05-18-2025 Evaluation of diagnostic study results [facility] Start: 04-20-2025 [facility] Start: 04-20-2025 Electrocardiographic procedure [facility] Start: 04-20-2025 End: 04-20-2025 [facility] Start: 11-21-2024 Iv infusion hydration each additional hour HYDRATE IV INFUSION ADD-ON [facility] Start: 11-21-2024 Iv infusion hydration initial 31 min-1 hour HYDRATION IV INFUSION INIT [facility] Start: 12-24-2023 Procedure [facility] Start: 05-22-2018 End: 05-22-2018 Appointment Appointment [facility] Work Phone: Start: 05-18-2017 End: 05-18-2017 Appointment Appointment [facility] Work Phone: Start: 05-18-2017 End: 05-18-2017 Follow Up Appt 1 year Follow Up Appt 1 year [facility] Work Phone: Start: 05-18-2017 End: 05-18-2017 PFM PFM [facility] Work Phone: Start: 06-01-2016 End: 06-02-2016 *BMP *BMP [facility] Work Phone: Start: 06-01-2016 End: 06-01-2016 Follow Up Appt 6 months Follow Up Appt 6 months [facility] Work Phone: Start: 06-01-2016 End: 06-01-2016 Follow Up Appt Other Follow Up Appt Other [facility] Work Phone: Start: 06-01-2016 End: 06-01-2016 PFM PFM [facility] Work Phone: Start: 06-01-2016 End: 06-02-2016 *BMP *BMP [facility] Work Phone: Start: 06-01-2016 End: 06-01-2016 Follow Up Appt 6 months Follow Up Appt 6 months [facility] Work Phone: Start: 06-01-2016 End: 06-01-2016 Follow Up Appt Other Follow Up Appt Other [facility] Work Phone: Start: 06-01-2016 End: 06-01-2016 PFM PFM [facility] Work Phone: Start: 12-01-2015 End: 06-01-2016 Ecg routine ecg w/least 12 lds w/i&r EKG (In office) [facility] Work Phone: Start: 12-01-2015 End: 06-01-2016 Follow Up Appt 6 months Follow Up Appt 6 months [facility] Work Phone: Start: 12-01-2015 End: 06-01-2016 MMM MMM [facility] Work Phone: Start: 12-01-2015 End: 06-01-2016 Electrocardiogram, complete EKG (In office) [facility] Work Phone: Start: 12-01-2015 End: 06-01-2016 Follow Up Appt 6 months Follow Up Appt 6 months [facility] Work Phone: Start: 12-01-2015 End: 06-01-2016 MMM MMM [facility] Work Phone: Start: 04-21-2015 End: 04-21-2015 Follow Up Appt 6 months Follow Up Appt 6 months [facility] Work Phone: Start: 04-21-2015 End: 04-21-2015 PFM PFM [facility] Work Phone: Start: 04-21-2015 End: 04-21-2015 Follow Up Appt 6 months Follow Up Appt 6 months [facility] Work Phone: Start: 04-21-2015 End: 04-21-2015 PFM PFM [facility] Work Phone: Start: 10-05-2014 End: 10-06-2014 Ecg routine ecg w/least 12 lds w/i&r EKG (In office) [facility] Work Phone: Start: 10-05-2014 End: 10-06-2014 Follow Up Appt 6 months Follow Up Appt 6 months [facility] Work Phone: Start: 10-05-2014 End: 10-06-2014 MMM MMM [facility] Work Phone: Start: 10-05-2014 End: 10-06-2014 Electrocardiogram, complete EKG (In office) [facility] Work Phone: Start: 10-05-2014 [...] Up Appt Other Follow Up Appt Other [facility] Work Phone: Start: 04-01-2014 End: 04-14-2015 MMM MMM [facility] Work Phone: Start: 04-01-2014 End: 04-14-2015 Follow Up Appt 6 months Follow Up Appt 6 months [facility] Work Phone: Start: 04-01-2014 End: 04-21-2015 Follow Up Appt Other Follow Up Appt Other [facility] Work Phone: Start: 04-01-2014 End: 04-14-2015 MMM MMM [facility] Work Phone: Start: 06-04-2013 End: 06-04-2013 Ecg routine ecg w/least 12 lds w/i&r EKG (In office) [facility] Work Phone: Start: 06-04-2013 End: 06-04-2013 Follow Up Appt 6 months Follow Up Appt 6 months [facility] Work Phone: Start: 06-04-2013 End: 06-04-2013 PFM PFM [facility] Work Phone: Start: 06-04-2013 End: 06-04-2013 Electrocardiogram, complete EKG (In office) [employer] Work Phone: Start: 06-04-2013 End: 06-04-2013 Follow Up Appt 6 months Follow Up Appt 6 months [facility] Work Phone: Start: 06-04-2013 End: 06-04-2013 PFM PFM [email or web address] Work Phone: Start: 08-14-2012 End: 08-14-2012 Ecg routine ecg w/least 12 lds w/i&r EKG (In office) [facility] Work Phone: Start: 08-14-2012 End: 08-14-2012 Follow Up Appt 6 months Follow Up Appt 6 months [facility] Work Phone: Start: 08-14-2012 End: 08-14-2012 Electrocardiogram, complete EKG (In office) [employer] Work Phone: Start: 08-14-2012 End: 08-14-2012 Follow Up Appt 6 months Follow Up Appt 6 months [facility] [employer] Phone: Start: 02-22-2012 End: 02-22-2012 Ecg routine ecg w/least 12 lds w/i&r EKG (In office) [facility] Work Phone: Start: 02-22-2012 End: 03-04-2013 Follow Up Appt 6 months Follow Up Appt 6 months [facility] Work Phone: Start: 02-22-2012 End: 02-22-2012 Electrocardiogram, complete EKG (In office) [employer] Work Phone: Start: 02-22-2012 End: 03-04-2013 Follow Up Appt 6 months Follow Up Appt 6 months [facility] Work Phone: Ambulatory ECG [facility] MR Abdomen WO and W contrast IV [facility] NM Heart Views W str ess and W radionuclide IV [facility] Ova and parasites id entified in Unspecified specimen by Light microscopy [facility] Patient Education [facility] Work Phone: Patient referral [facility] Work Phone: Procedure [facility] Troponin T.cardiac [Mass/volume] in Serum or Plasma by High sensitivity method [facility] [place] Immunizations Immunization Date Immunization Notes Care Provider Fa cility 01-19-2021 Covid (Moderna) [facility] 12-22-2020 Covid (Moderna) [facility] 06-29-2017 Influenza virus vaccine [facility] 08-27-2012 Pneumococcal Vaccine [facility] Work Phone: 08-27-2012 pneumococcal vaccine , unspecified formulation Dr. Olivier Olmstead Work Phone: [facility] Payers Date Payer Category Payer Self-pay [id number] 2015 Medicare [id number] Medicare [id number] Unknown [id number] 2.16.8 [id number] Unknown [id number] 2.16.8 [id number] Unknown [id number] 2.16.8 [id number] Unknown [id number] 2.16.8 [id number] Unknown [id number] 2.16.8 [id number] Unknown [id number] 2.16.8 [id number] Unknown [id number] 2.16.8 [id number] Unknown [id number] 2.16.8 [id number] Unknown [id number] 2.16.8 [id number] Unknown [id number] 2.16.8 [id number] Unknown [id number] 2.16.8 [id number] Unknown [id number] 2.16.8 [id number] Unknown [id number] 2.16.8 [id number] Social History Date Type Detail Facility Start: 09-07-2021 End: 01-03-2024 Tobacco smoking status [facility] Unknown if ever smoked [facility] Start: 10-15-2017 None [facility] Start: 05-29-2020 Alone [facility] Start: 1950 Sex Assigned At Female [facility] Start: 06-23-2024 End: 06-07-2025 Tobacco smoking status UTIS Ex-smoker (finding) [facility] Start: 01-11-2025 Sex Female (finding) [facility] Medical Equipment Procedure Code Equipment Code Equipment [...] /State Mental Status Date Assessment Result Facility 06-07-2025 Cognitive function Voice/Name [facility] Work Phone: 04-20-2025 Cognitive function Level Of Cons ciousness Awake;Alert;Appropriate;Follow s Commands [facility] Work Phone: Clinical Notes 12-25-2024 to 06-08-2025 Note Date & Type Note Facility 06-08-2025 Discharge summary [facility] 06-07-2025 Radiology Diagnostic study note [facility] Imaging Services [address] [place], [place] [id number] Chest 1 View (Portable) MR#: [id number] Acct: [id number] Name: DONNA YATES Rep #: [id number] : 1950 F 74 From: Jonathan West MD PCP: Dr. Olivier Olmstead MD Status: REG E R Study:Chest 1 View (Portable) Date of Exam: 06/07/25 Exam# [id number] Ordering Dr: Carlos Darnell DO PROCEDURE: CHEST 1 VIEW (PORTABLE) 06/07/2025 REASON FOR EXAM: CHEST PAIN TECHNIQUE: Frontal view of the chest. COMPARISON: 04/20/2025 FINDINGS: Hardware: None. Heart: Heart size is mildly enlarged but stable. Lungs: Slightly improved mild pulmonary vascular congestion. No definite focal consolidation or pneumothorax. Bones: The bones are unremarkable. RAD/Chest 1 View (Portable) IMPRESSION: Stable mild cardiomegaly with slightly improved mild pulmonary vascular congestion. Reading Location: [facility] CC: Dr. Carlos Darnell DO; Dr. Olivier Olmstead MD ~ [employer] G: Signed [facility] 06-07-2025 Discharge summary Note Date/Time June 08, 2025 2:53am [facility] Medical Records Department [address] [place] [address] Emergency Department Summary 06/07/25 MR#: [id number] Acct: [id number] Name: DONNA YATES Rep #:[id number] : 1950 74 From: Carlos Swanson PCP: Dr. Olivier Olmstead MD Status:REG E R Location: ED HPI History of Present Illness Chief Complaint: Palpitations Informant: patient Onset/Context/Timing Onset: Yesterday Context: Sudden Onset Timing: Continuous Quality: Irregular, pressure Location: Chest Worsened by: Nothing Relieved by: Nothing Narrative Narrative: Patient presents with palpitations that began yesterday. Patient states it began rather suddenly. Patient states it has been constant. Patient states it feels like her heart is beating irregular. Patient has a history of paroxysmal atrial fibrillation. Patient states nothing makes her symptoms better and nothing makes it worse. Patient denies any shortness of breath. Patient does admit to a mild cough. Patient denies any nausea or vomiting. Patient denies any diaphoresis. [facility] Medical History Muscular dystrophy Paroxysmal atrial tachycardia Non-rheumatic mitral regurgitation Nonrheumatic mitral (valve) prolapse Paroxysmal atrial fibrillation History of kidney stones Left bundle branch block Qzzwyxh-Htana-Tqksu disease Hypotension Depression Home Medications ?Medication ?Instructions ?Recorded ?Last Taken ?Type levothyroxine 125 mcg tablet 125 mcg PO QODAY 11/28/23 04/19/25 History diltiazem HCl 120 mg 120 mg PO QDAY HEART #90 cap s 07/24/24 04/19/25 Rx capsule,extended release 24 hr flecainide 100 mg tablet 100 mg PO BID HEART #180 tab s 07/24/24 04/20/25 Rx levothyroxine 112 mcg tablet 112 mcg PO QODAY 04/20/25 04/20/25 History Allergy/AdvReac Type Severity Reaction Status Date / Time prednisone Allergy Intermediate Rash Verified 05/18/25 09:40 adhesive AdvReac Rash Verified 05/18/25 09:40 Family History Mother Hypertension Breast cancer Brother [...] Number of servings: 2 ROS ROS ED Constitutional Constitutional ED: Denies chills or fever(s) Eyes Eyes: Denies blurry vision or change in vision ENT ENT ED: Denies rhinorrhea or sore throat Cardiovascular Cardiovascular: Reports chest pain and palpitations Respiratory/Chest Respiratory/Chest: Reports cough; Denies dyspnea Gastrointestinal Gastrointestinal: Denies nausea or vomiting Genitourinary Genitourinary ED: Denies dysuria or hematuria Musculoskeletal Musculoskeletal: Denies back pain or neck pain Integumentary Denies abscess or rash Neurologic Neurologic: Reports headache(s); Denies weakness Allergic/Immunologic Allergic/Immunologic ED: Denies mouth swelling or urticaria EXAM Physical Exam Const Vital Signs: 06/07/25 20:03 06/07/25 20:56 06/07/25 21:00 Temperature 97.9 F Temperature Source Oral Pulse Rate 115 H 109 H Respiratory Rate 20 H 18 Respiratory Effort Normal Non-Labored Respiratory Pattern Normal Blood Pressure 174/98 H 158/94 H Blood Pressure Mean 123 115 Pulse Ox 94 95 Oxygen Delivery Method Room Air Room Air 06/07/25 21:47 06/07/25 22:00 06/07/25 23:00 Temperature Temperature Source Pulse Rate 114 H 122 H Respiratory Rate 16 16 Respiratory Effort Respiratory Pattern Blood Pressure 154/92 H 148/87 H Blood Pressure Mean 112 107 Pulse Ox 94 95 93 Oxygen Delivery Method Room Air Room Air Room Air 06/08/25 00:00 06/08/25 01:00 06/08/25 02:00 Temperature Temperature Source Pulse Rate 120 H 120 H 123 H Respiratory Rate 16 16 17 Respiratory Effort Respiratory Pattern Blood Pressure 137/96 H 153/96 H 129/86 H Blood Pressure Mean 109 115 100 Pulse Ox 94 97 93 Oxygen Delivery Method Room Air Room Air Room Air 06/08/25 02:42 Temperature 98 F Temperature Source Pulse Rate 118 H Respiratory Rate 18 Respiratory Effort Respiratory Pattern Blood Pressure 124/92 H Blood Pressure Mean 102 Pulse Ox 94 Oxygen Delivery Method Positive well nourished and well developed General Appearance ED: well developed and NAD HEENT Reports moist mucous membranes Neck supple and no JVD Chest Wall palpation of chest normal Resp normal respiratory effort and clear to auscultation bilaterally Cardio Rate: tachycardic Rhythm: abnormal rhythm irregularly irregular GI non-tender and non-distended Palpation: soft Extremity normal to inspection Neuro oriented x3, CN's II-XII intact bilaterally and no sensory deficits noted Sensorium / Orientation: alert Motor Exam: strength 5/5 throughout Psych mental status grossly normal MDM MDM MDM Narrative Medical decision making narrative: Differential diagnosis includes cardiac dysrhythmia, cardiac ischemia, pneumonia, electrolyte abnormality, coagulopathy, hyperthyroidism, hypothyroidism, hypomagnesemia, and anxiety. EKG will be obtained to assess forcardiac dysrhythmia and cardiac ischemia. Chest x-ray will be obtained to assess for pneumonia and bronchitis. CBC will be obtained to assess for leukocytosis and anemia. Basic metabolic profile will be obtained to assess forelectrolyte abnormality and renal function. With INR and PTT will be obtained. Serum magnesium level will be obtained to assess for hypermagnesemia and hypomagnesemia. TSH will be obtained to assess for hyperthyroidism and hypothyroidism. High-sensitivity troponin will be obtained to assess for cardiac ischemia. 2-hour repeat high-sensitivity troponin will be obtained to assess for ongoing cardiac ischemia. History & Record Review Additional record(s) reviewed:: Prior outpatient record, Prior ED visit and Prior labs Lab Data Attestation: I reviewed the patient's lab results. Lab results narrative: CBC was reviewed and was within normal limits. Basic metabolic profile was reviewed and was within normal limits. Initial high-sensitivity troponin was reviewed and is slightly elevated at 15. 2-hour repeat high-sensitivity troponin was reviewed and was slightly elevated at 19. Serum magnesium level was reviewed and was normal at 2.3. TSH was reviewed and was normal at 0.995. PT with INR and PTT were reviewed and were within normal limits. Labs: Laboratory Results - last 24 hr 06/07/25 06/07/25 06/08/25 21:05 23:19 01:17 WBC 7.4 RBC 4.57 Hgb 14.9 Hct 44.5 MCV 97.4 MCH 32.6 H MCHC 33.5 RDW Std Deviation 49.0 H RDW Coeff of Viktoria 13.6 Plt Count 261 MPV 10.9 Immature Gran % (Auto) 0.500 Neut % (Auto) 53.4 Lymph % (Auto) 36.1 Winona % (Auto) 7.3 Eos % (Auto) 2.4 Baso % (Auto) 0.3 Absolute Neuts (auto) 3.9 Absolute Lymphs (auto) 2.66 Nucleated RBC % 0 PT 12.5 INR 0.9 APTT 20.6 L Sodium 138 Potassium 4.3 Chloride 104 Carbon Dioxide 23.0 Anion Gap 11 BUN 19 Creatinine 0.78 Estim Creat Clear Calc 66.87 Est GFR (MDRD) Non-Af 79 BUN/Creatinine Ratio 23.8 H Glucose 95 Calcium 9.3 Magnesium 2.3 H Troponin T High Sens 15 H D Troponin T Hi Sens 2 Hr 19 H Troponin T Hi Sens 4Hr 17 H TSH 0.995 Radiography Chest X-Ray - ED: 1 View, Read by ED Physician, Read by Radiologist, No Acute Disease and Cardiomegaly Diagnostic Testing: Clinical Impression(s) from Imaging Studies Chest X-Ray 06/07/25 21:53 IMPRESSION: Stable mild cardiomegaly with slightly improved mild pulmonary vascular congestion. Reading Location: [facility] Portable 1 view chest x-ray was obtained. On my independent interpretation, lung medrano show mild pulmonary vascular congestion. There is mild cardiomegaly. Bony thorax is normal. There is no acute process noted. Radiologist also interpreted the x-ray and agrees. EKG Initial EKG: Attestation: I personally reviewed and interpreted this EKG as follows: Interpretation: Atrial Fibrillation (115), LBBB and Non-Specific ST Changes Comments: EKG was obtained. On my independent interpretation, shows atrial fibrillation with a rate of 115. QRS interval was slightly prolonged at 156 ms. QTc interval was prolonged at 525 ms. There is left axis deviation -61. There is a left bundle branch block pattern noted. There are nonspecific ST-T wave changes noted. Prior EKG tracings: available for review Prior: Unchanged (04/20/2025) Follow-up EKG: Attestation: I personally reviewed and interpreted this EKG as follows: Interpretation: Sinus Tachycardia (117) and Non-Specific ST Changes Comments: Repeat EKG was obtained. On my independent interpretation, which showed sinus tachycardia cardia with a rate of 117. SD interval was normal at 120 ms. QRS interval was prolonged at 142 ms. QTc interval was prolonged at 527 ms. There is left axis deviation at -50. There is a nonspecific intraventricular conduction delay. There is left ventricular hypertrophy with nonspecific ST-T wave changes. Treatment and Re-Evaluation :: Patient was given aspirin here. Patient was given a dose of Cardizem. Patient's heart rate remained elevated in the 120s. Patient was given a dose ofmetoprolol. Patient converted to sinus rhythm. Patient is feeling better on reevaluation. Patient was instructed to follow-up with her mds nurse this week as scheduled. Patient was instructed to continue with the medications as previously prescribed. Patient was instructed to return to placental weight. Patient understood and was agreeable with the plan. All questions were answered. Discharge Plan Triage Chief Complaint: Palpitations ED Provider: Carlos Darnell Dx/Rx/DC Orders Clinical Impression: Paroxysmal atrial fibrillation, Left bundle branch block, CMT (Ttxjhny-Tsdyq-Xcsip disease) Instructions: ED AFIB, ED Palpitations Prescriptions: No Action levothyroxine 125 mcg tablet 125 mcg PO QODAY Patient Comments: alternating with 112mcg Rx Instructions: qod levothyroxine 112 mcg tablet 112 mcg PO QODAY Patient Comments: alternating with 125mcg diltiazem HCl 120 mg capsule,extended release 24hr 120 mg PO QDAY Qty: 90 3RF flecainide 100 mg tablet 100 mg PO BID Qty: 180 3RF Primary Care Provider: Olivier Olmstead Chi Referrals: Anastacio Scruggs MD [Med Staff - Active Staff] - Keep Ken appointment Olivier Olmstead Chi, MD [Primary Care Provider] - 3-5 Days Print Language: Surinamese Disposition Disposition: Home, Self Care What to do if you have Problems For any increased pain, shortness of breath, bleeding, nausea or vomiting, chestpain, or any unexpected problems, contact your Primary Care Provider. Call [facility] ([phone]) or report to the closest Emergency Room. Call 911 if necessary. 06/08/25 0253 <Electronically signed by Carlos Darnell DO> Cosigner Signature (if applicable): CC: Dr. Olivier Olmstead MD ~ Signed [facility] Work Phone: 1(263) 909-224108-06-2025 Radiology Diagnostic study note [facility] Imaging Services [address] [place] [id number] L/S Spine Min 4 Views MR#: [id number] Acct: [id number] Name: DONNA YATES Rep #: [id number] : 1950 F 74 From: Tawana Ramos MD PCP: Dr. Olivier Olmstead MD Status: REG C [place] Study:L/S Spine Min 4 Views Date of Exam: 06/02/25 Exam# [id number] Ordering Dr: Olivier Olmstead MD PROCEDURE: L/S SPINE MIN 4 VIEWS 06/02/2025 REASON FOR EXAM: LOW BACK PAIN TECHNIQUE: L/S SPINE MIN 4 VIEWS COMPARISON: 06/03/2024. FINDINGS: S shaped degenerative scoliosis. Mild osteopenia. There are diffuse spondylotic changes. Findings are demonstrated to by diffuse disc space narrowing, osteophyte formation and degenerative endplate sclerosis. There is diffuse facet joint arthropathy with secondary bilateral neural foramina narrowing. No fracture or dislocation is seen. No aggressive lytic or blastic bony lesion is noted. RAD/L/S Spine Min 4 Views IMPRESSION: Spondylosis. Findings have mildly progressed. Reading Location: [place] [address] CC: Dr. Olivier Olmstead MD ~ [employer] G: Signed [facility]07-21-2025 Evaluation note* Diagnosis Onset Date Resolution Status Admit Date Chest pain acute May 18 9:27am Hypertension acute May 18, 2 025 9:27am Nonrheumatic mitral (valve) prolapse acute May 18, 2025 9:27am Paroxysmal atrial tachycardia acute May 18, 2025 9:27am Paroxysmal atrial fibrillation chron ic May 18, 2025 9:27am [facility] Work Phone: 1(878) 367-357506-23-2025 Discharge summary [facility] Medical Records Department [address] [place] [address] Emergency Department Summary 04/20/25 MR#: [id number] Acct: [id number] Name: DONNA YATES Rep #:[id number] : 1950 74 From: Dewayne Vázquez [...] notes that she tried to call her mds nurse they did not answer therefore she came here for further evaluation management. States that when her blood pressure is elevatedshe knows that she has a headache associatedwith this. Patient states that she has been taking her medications as prescribed not missing doses [facility] Medical History (Updated 04/20/25 @ 14:[address] Dewayne Vázquez DO) Muscular dystrophy Paroxysmal atrial tachycardia Non-rheumatic mitral regurgitation Nonrheumatic mitral (valve) prolapse Paroxysmal atrial fibrillation History of kidney stones Left bundle branch block Dzbwjmx-Gfmuk-Muvet disease Hypotension Depression Home Medications ?Medication ?Instructions [...] extremities, no pedal edema on exam, +5/5 strengthnoted in the bilateral upper and lower extremities Neurological: Patient follow commands knew that she was at [facility] the year is 2024 Skin: Warm, dry, [...] reviewed showed sinus rhythm with a rate of97 bpm with PACs noted with evidence of first-degree AV block with a SD interval of 240. Patient's chest x-ray reviewed [...] first-degree AV block with premature supraventricular complexes SD interval of 216 evidence of first-degree AV [...] 2-3 times a day and write this downand call her doctor to see if they [...] (Auto) 71.0 H Lymph % (Auto) 20.5 Winona % (Auto) 5.7 Eos % (Auto) 2.3 [...] may represent a trace effusion. Reading [facility] Discharge Plan Triage Chief Complaint: Hypertension ED [...] if they need to make anyadjustments to yourblood pressure medication. Randomly take your blood pressure 2-3 times a day write down what the time was that he took it and the blood pressure reading. Take this log to your doctor's office furtherreview tosee if they need to make any medication adjustments. Return with any other concerns Print Language: Surinamese Disposition Disposition: Home, Self Care What to do if you have Problems For any increased pain, shortness of breath, bleeding, nausea or vomiting, chestpain, or any unexpected problems, contact your Primary Care Provider. Call [facility] ([phone]) or report tothe closest Emergency Room. Call 911 if necessary. 04/20/25 1436 Cosigner Signature (if applicable): CC: Dr. Olivier Olmstead MD ~ Signed [facility]06-23-2025 Discharge summary Author Dewayne Vázquez [facility] Note Date/Time April 20, 2025 2:39 pm [facility] Medical Records Department [address] [place] [address] Emergency Department Summary 04/20/25 MR#: [id number] Acct: [id number] Name: DONNA YATES Rep #:[id number] : 1950 74 From: Dewayne Vázquez [...] notes that she tried to call her mds nurse they did not answer therefore she came here for further evaluation management. States that when her blood pressure is elevated she knows that she has a headache associatedwith this. Patient states that she has been taking her medications as prescribed not missing doses [facility] Medical History (Updated 04/20/25 @ 14:[address] Dewayne Vázquez DO) Muscular dystrophy Paroxysmal atrial tachycardia Non-rheumatic mitral regurgitation Nonrheumatic mitral (valve) prolapse Paroxysmal atrial fibrillation History of kidney stones Left bundle branch block Rjudokd-Elgrh-Xenpv disease Hypotension Depression Home Medications ?Medication ?Instructions [...] follow commands knew that she was at [facility] the year is 2024 Skin: Warm, dry, [...] evidence of first-degree AV block with a SD interval of 240. Patient's chest x-ray reviewed [...] first-degree AV block with premature supraventricular complexes SD interval of 216 evidence of first-degree AV [...] (Auto) 71.0 H Lymph % (Auto) 20.5 Winona % (Auto) 5.7 Eos % (Auto) 2.3 [...] may represent a trace effusion. Reading Location: [facility] Discharge Plan Triage Chief Complaint: Hypertension ED [...] Return with any other concerns Print Language: Surinamese Disposition Disposition: Home, Self Care What to do if you have Problems For any increased pain, shortness of breath, bleeding, nausea or vomiting, chestpain, or any unexpected problems, contact your Primary Care Provider. Call [facility] ([phone]) or report to the closest Emergency Room. Call 911 if necessary. 04/20/25 1439 <Electronically signed by Dewayne Vázquez DO> Cosigner Signature (if applicable): CC: Dr. Olivier Olmstead MD ~ Signed [facility] Work Phone: [phone]) 895-553306-23-2025 Radiology Diagnostic study note [facility] Imaging Services [address], [place] [address] Chest PA and Lateral MR#: [id number] Acct: [id number] Name: DONNA YATES Rep #: [id number] : 1950 F 74 From: Maxwell Richardson MD PCP: Dr. Olivier Olmstead MD Status: PRE E R Study:Chest PA and Lateral Date of Exam: 04/20/25 Exam# [id number] Ordering Dr: Blue Vázquez DO PROCEDURE: CHEST [...] Olmstead MD; Dr. Dewayne Vázquez DO ~ [employer] G: Signed [facility]06-23-2025 Hospital Discharge instructions Additional Instructions Follow-up with [...] any medication adjustments. [facility] Work Phone: [phone]) 561-957806-09-2025 Radiology Diagnostic study note [facility] Imaging Services [address], [place] [address] CT Chest, Abd, Pel w/Contrast MR#: [id number] Acct: [id number] Name: DONNA YATES Rep #: [id number] : 1950 F 74 From: Risa Dickinson MD PCP: Dr. Olivier Olmstead MD Status: REG C LI Study:CT Chest, Abd, Pel w/Contrast Date of Toney de santiago: 04/06/25 Exam# [id number] Ordering Dr: Olivier Olmstead MD PROCEDURE: CT [...] effusion or pneumothorax. Bones: Bilateral shoulder arthrosis, graix-ujmvzdj-afhi-left. Exaggerated kyphosis of the thoracic spine with [...] splenomegaly, which may represent fibrosis/cirrhosis. Reading Location: [id number] CC: Dr. Olivier Olmstead MD ~ [employer] G: Signed [facility]02-27-2025 Evaluation note* Diagnosis Onset Date Resolution Status Admit Date Long-term use of high-risk medication acute December 25 025 11:23am Non-rheumatic mitral regurgitation chronic December 25 025 11:23am Paroxysmal atrial fibrillation chron ic December 25, 2024 11:23am [facility] Work Phone: Evaluation noteNo assessment information available [facility] Work Phone: Evaluation note* Diagnosis Onset Date Resolution Status Back pain acute Segmental and somatic dysfunction of lumbar region acute Segmental and somatic dysfunction of pelvic region acute Segmental and somatic dysfunction of thoracic region acute CMT (Ujuomdm-Mntcm-Onckg disease) chronic DDD (degenerative disc disease), lumbar chronic Back pain acute Segmental and somatic dysfunction of lumbar region acute Segmental and somatic dysfunction of pelvic region acute CMT (Xtngyeq-Wjkqw-Jcqwl disease) chronic DDD (degenerative disc disease), lumbar chronic Back pain acute Segmental and somatic dysfunction of lumbar region acute Segmental and somatic dysfunction of pelvic region acute CMT (Xgcljxr-Vurnj-Zwpso disease) chronic DDD (degenerative disc disease), lumbar chronic [facility] Work Phone: Evaluation note* Diagnosis Onset Date Resolution Status Nonrheumatic mitral (valve) prolapse acute Paroxysmal atrial tachycardia acute Left bundle branch block chr onic Non-rheumatic mitral regurgitation chronic Paroxysmal atrial fibrillation chronic [facility] Work Phone: Evaluation note* Diagnosis Onset Date Resolution Status Nonrheumatic mitral (valve) prolapse acute Left bundle branch block chr onic Non-rheumatic mitral regurgitation chronic Paroxysmal atrial fibrillation chronic [facility] Work Phone: Evaluation note* Diagnosis Onset Date Resolution Status Nonrheumatic mitral (valve) prolapse acute Left bundle branch block chr onic Non-rheumatic mitral regurgitation chronic Paroxysmal atrial fibrillation chronic Abdominal pain acute [facility] Work Phone: Reason for referral (narrative)No reason for referral information [facility]WW[facility] Work Phone: Chief Complaint and Reason for [...] and somatic dysfunction of thoracic region CMT (Gkiqrfk-Gbovt-Snusd disease) DDD (degenerative disc disease), lumbar Back pain Segmental and somatic dysfunction of lumbar region Segmental and somatic dysfunction of pelvic region CMT (Mvfsrkz-Btvps-Jeaee disease) DDD (degenerative disc disease), lumbar Back pain Segmental and somatic dysfunction of lumbar region Segmental and somatic dysfunction of pelvic region CMT (Xmihdax-Rhnqe-Ynuma disease) DDD (degenerative disc disease), lumbar Chief [...] HYPERTENSION April 20, 2025 9:39 am S/P [facility] 04/20May 18, 2025 9:27 am Chief Complaint Admit Date V87.7XXA SOB ABD PAIN BACK PAIN March 12:26pm HYPERTENSION April 20, 2025 9:39 am S/P [facility] 04/20May 18, 2025 9:27 am PALPITATIONS June 07, 2025 8: 02pm Reason for Visit Admit Date Chest pain May 18, 2025 9:27 am Hypertension May 18, 2025 9:27 am Nonrheumatic mitral (valve) prolapse Apr 9:27am Paroxysmal atrial tachycardia May 18, 2025 9:27am Paroxysmal atrial fibrillation April 9:27am Chief Complaint Admit Date V87.7XXA SOB ABD PAIN BACK PAIN March 12:26pm HYPERTENSION April 20, 2025 9:39 am S/P [facility] 04/20May 18, 2025 9:27 am PALPITATIONS June 07, 2025 8: 02pm CHEST PAIN June 11, 2025 10 :00am Family History No Family History Records Found [...] Yes July 09, 2020 5:18pm Power of Green Building Energy Engineer Yes June 5:18pm Advance Directive Response Recorded Date/ Time Advance Directives Yes June 04 5:42pm Living Will Yes July 09, 2020 4:18pm Power of Green Building Energy Engineer Yes June 4:18pm Advance Directive Response Recorded Date/ Time Advance Directives Yes June 23, 2024 12:05pm Advance Directive Response Recorded Date/ Time Do you have a Healthcare Power of Green Building Energy Engineer? No April 20, 2025 11:31am Advance Directives Yes June 23, 2024 12:05pm Advance Directive Response Recorded Date/ Time Do you have a Healthcare Power of Green Building Energy Engineer? No April 20, 2025 11:31am Do you have a Healthcare Power of Green Building Energy Engineer? Yes June 07, 2025 8:56pm Advance Directives Yes June 23, 2024 12:05pm [...] Care Provider, Referring Provider Active Ophelia Diana MUD JACK NOZZLE WORKER, MUD JACK NOZZLE WORKER-C Attending Provider Active Team Status: Active Member [...] MD Primary Care Provider Active Ophelia Diana MUD JACK NOZZLE WORKER, MUD JACK NOZZLE WORKER-C Referring Provider, Other Provi indra Active Dr. Page Underwood MD Attending Provider Active Team Status: Active Member Role Status Dates Dr. Olivier Olmstead MD Primary Care Provider Active Ophelia Diana MUD JACK NOZZLE WORKER, MUD JACK NOZZLE WORKER-C Attending Provider Active Team Status: Inactive Member Role Status Dates Dr. Olivier Olmstead MD Primary Care Provider Active Ophelia Diana MUD JACK NOZZLE WORKER, MUD JACK NOZZLE WORKER-C Attending Provider, Referring [place] Active Team Status: Inactive Member Role Status [...] 2024 End: December 25, 2024 Dr. Anastacio Scrugsg MD Attending Provider Active Start: December 25, [...] 18, 2025 End: May 18, 2025 JAGRUTI Hernandse Attending Provider Active St art: May 18, 2025 End: May 18, 2025 Team Status: Active Member Role/Relationship Status Dates Dr. Olivier Olmstead MD Primary Care Provider Active Start: June 02, 2025 Dr. Olivier Olmstead MD Attending Provider Active Start: June 02, 2025 Dr. Olivier Olmstead MD Referring Provider Active Start: June 02, 2025 Team Status: Inactive Member Role/Relationship Status Dates Dr. Olivier Olmstead MD Primary Care Provider Active Start: June 07, 2025 End: June 08, 2025 Dr. Carlos Darnell DO Referring Provider Active Start: June 07, 2025 End: June 08, 2025 Dr. Carlos Darnell DO Emergency Provider Active Start: June 07, 2025 End: June 08, 2025 Team Status: Inactive Member Role/Relationship Status Dates Dr. Olivier Olmstead MD Primary Care Provider Active Start: June 02, 2025 End: June 02, 2025 Dr. Olivier Olmstead MD Attending Provider Active Start: June 02, 2025 End: June 02, 2025 Dr. Olivier Olmstead MD Referring Provider Active Start: June 02, 2025 End: June 02, 2025 Team Status: Inactive Member Role/Relationship Status Dates Dr. Olivier Olmstead MD Primary Care Provider Active Start: June 07, 2025 End: June 08, 2025 Dr. Carlos Darnell DO Attending Provider Active Start: June 07, 2025 End: June 08, 2025 Dr. Carlos Darnell DO Referring Provider Active Start: June 07, 2025 End: June 08, 2025 Dr. Carlos Darnell DO Emergency Provider Active Start: June 07, 2025 End: June 08, 2025 Team Status: Inactive Member Role/Relationship Status Dates Dr. Olivier Olmstead MD Primary Care Provider Active Start: June 11, 2025 End: June 11, 2025 JAGRUTI Hernandes Attending Provider Active St art: June 11, 2025 End: June 11, 2025 JAGRUTI Hernandes Referring Provider Active St art: June 11, 2025 End: June 11, 2025 Team Status: Active Member Role/Relationship Status Dates Dr. Olivier Olmstead MD Primary Care Provider Active Start: June 11, 2025 Dr. Jose Gomez MD Attending Provider Active S tart: June 11, 2025 INFORMATION SOURCE (unrecogn ized section and content) DATE CREATED AUTHOR 06/19/2025 [facility] FOR RECORDS PERTAINING TO PATIENTS WHO ARE [...] BE BASED ON THE PRIMARY CLINICAL RECORDS. [facility]. provides no warranty or guarantee of the accuracy or completeness of information in this document.
[2025-06-24] VITALS (28 sets, daily range): BP systolic 98–153; BP diastolic 48–97; PULSE 113–131; RESP 17–26; TEMP 36.6–37.1; O2SAT 92–98
--- NOTE | 2025-06-24 01:13 | EKG12_ITS ---
Test Reason : A-FIB -- NSR Blood Pressure : */* mmHG Vent. Rate : 113 BPM Atrial Rate : 226 BPM P-R Int : * ms QRS Dur : 122 ms QT Int : 436 ms P-R-T Axes : * -60 166 degrees QTcB Int : 598 ms Critical Test Result: Long QTc Atrial flutter with 2:1 A-V conduction Left axis deviation Minimal voltage criteria for LVH, may be normal variant ( [place] product ) Septal infarct , age undetermined Inferior infarct , age undetermined ST & T wave abnormality, consider lateral ischemia Abnormal ECG When compared with ECG of 23-Jun-2025 16:49, MANUAL COMPARISON REQUIRED DATA IS UNCONFIRMED Confirmed by JAMES TREJO ([id number]), restaurant expeditor GRISELDA HUERTA ([id number]) on 06/24/2025 1:58:30 PM Referred By: Confirmed By: JAMES TREJO
[2025-06-24] MEDS: Diltiazem 125 MG in Dextrose 5%-Water (100mL Bag) 100 ML 15 MG IV ×3 (04:42→21:50)
[2025-06-24] MEDS: 0.9% Saline Lock 10 ML Syringe IV ×2 (04:43→20:26)
[2025-06-24 06:57] LABS: Hematocrit 39.2 % (37-47); Hemoglobin 13.3 g/dL (12.0-15.0); Immature Granulocytes Count 0.030 X10^3/uL (0.0-0.0); Mean Corp Hgb Conc 33.9 g/dL (32-36); Mean Corpuscular Volume 97.0 fL (81-99); Mean Platelet Vol. 10.5 fl (6.2-12.0); NRBC Flagged by Analyzer 0 % (0-5); Platelet Count 205 K/mm3 (150-450); RBC Distribution Width CV 12.9 % (11.6-14.6); RBC Distribution Width SD 46.2 fl (35.1-43.9); Red Blood Count 4.04 M/mm3 (4.2-5.4); White Blood Count 7.3 K/mm3 (4.4-11.0)
[2025-06-24 08:02] LABS: AST(SGOT) 23 U/L (<=31); Alanine Aminotransfer ALT/SGPT 18 U/L (<=34); Albumin, Serum 3.5 g/dL (3.4-4.8); Alkaline Phosphatase 96 U/L (35-104); Anion Gap 11 (5-15); BUN 10 mg/dL (4-19); BUN/Creat Ratio 16.6 RATIO (10-20); Calcium,Total 9.0 mg/dL (7.6-11.0); Carbon Dioxide 23.8 mmol/L (21.0-32.0); Chloride 103 mmol/L (98-108); Estimated Creatinine Clearance 57.88 ml/min (50-250); Globulin 2.7 g/dL (2.2-4.2); Glucose 104 mg/dL (70-99); Potassium 3.9 mmol/L (3.3-5.1)
[2025-06-24] MEDS: Ensure Plus High Protein 120 ML LIQUID PO ×2 (09:05→12:06)
[2025-06-24] MEDS: APIXABAN 5 MG TABLET PO ×2 (09:05→20:25)
--- NOTE | 2025-06-24 11:40 | PN.HOSP_ITS ---
Subjective Subjective Doing well, heart rate still elevated however no significant shortness of breath or chest pain. She states that her flecainide was discontinued on her previous emergency room visit by the cardiology nurse who took her off metoprolol and flecainide and transitioned her to Cardizem Objective Data Objective Data Vital Signs: Vital Signs Temp Pulse Resp BP Pulse Ox O2 Del Method O2 Flow Rate 98.1 F 120 H 22 H 125/66 H 95 Room Air 2 06/23/25 20:45 06/24/25 09:12 06/24/25 09:00 06/24/25 09:00 06/24/25 09:12 06/24/25 09:12 06/24/25 08:18 Oxygen Flow Rate (L/min) 2 Oxygen Delivery Method Room Air Weight: 164 lb 7.437 oz Body Mass Index (BMI) 29.1 Intake & Output: Intake and Output for Last 24 Hours 06/23/25 06/24/25 06/25/25 03:59 03:59 03:59 Intake Total 95.83 / 110.83 93.67 / 93.67 Output Total 450 / 450 350 / 350 Balance -354.17 / -339.17 -256.33 / -256.33 Lab / Micro Data 06/24/25 06:40 06/24/25 06:40 Labs: Laboratory Results - last 24 hr 06/23/25 14:06: WBC 6.6, RBC 4.32, Hgb 14.3, Hct 42.4, MCV 98.1, MCH 33.1 H, MCHC 33.7, RDW Std Deviation 46.6 H, RDW Coeff of Viktoria 13.1, Plt Count 225, MPV 10.6, Immature Gran % (Auto) 0.300, Neut % (Auto) 69.2, Lymph % (Auto) 19.8, [place] % (Auto) 7.9, Eos % (Auto) 2.3, Baso % (Auto) 0.5, Absolute Neuts (auto) 4.5, Absolute Lymphs (auto) 1.30, Nucleated RBC % 0, PT 15.5 H, INR 1.2, APTT 27.6, Sodium 138, Potassium 4.0, Chloride 104, Carbon Dioxide 20.3 L, Anion Gap 14, BUN 17, Creatinine 0.67 L, Est GFR (MDRD) Non-Af 91, BUN/Creatinine Ratio 24.7 H, Glucose 103 H, Calcium 9.4, Magnesium 2.0, Troponin T High Sens 12 D, NT pro BNP II 685 06/23/25 15:50: Troponin T Hi Sens 2 Hr 13 06/23/25 17:50: Troponin T Hi Sens 4Hr Cancelled 06/24/25 06:40: WBC 7.3, RBC 4.04 L, Hgb 13.3, Hct 39.2, MCV 97.0, MCH 32.9 H, MCHC 33.9, RDW Std Deviation 46.2 H, RDW Coeff of Viktoria 12.9, Plt Count 205, MPV 10.5, Immature Gran % (Auto) 0.400, Neut % (Auto) 78.0 H, Lymph % (Auto) 11.2 L, [place] % (Auto) 8.7, Eos % (Auto) 1.4, Baso % (Auto) 0.3, Absolute Neuts (auto) 5.7, Absolute Lymphs (auto) 0.82 L, Nucleated RBC % 0, Sodium 138, Potassium 3.9, Chloride 103, Carbon Dioxide 23.8, Anion Gap 11, BUN 10, Creatinine 0.58 L, Estim Creat Clear Calc 57.88, Est GFR (MDRD) Non-Af 94, BUN/Creatinine Ratio 16.6, Glucose 104 H, Calcium 9.0, Phosphorus 2.2 L, Total Bilirubin 1.21, AST 23, ALT 18, Alkaline Phosphatase 96, Total Protein 6.2, Albumin 3.5, Globulin 2.7, Albumin/Globulin Ratio 1.3, TSH 0.422 Radiography Diagnostic Testing: Radiology Impression Chest X-Ray 06/23/25 13:47 IMPRESSION: Prior cervical surgery is again seen. Bilateral shoulder degenerative changes, bidfu-zpffrtc-bwrf-left, are again noted. Generalized osteopenia is seen. No acute osseous change is seen. Lungs are hypoinflated, but appear clear of acute disease, and unchanged. No acute pneumonic process is noted. No pleural effusion is clearly evident. No pneumothorax is seen. The cardiomediastinal silhouette is stable, with a partially calcified and tortuous aorta noted. Probable mild cardiomegaly, stable in appearance. Reading Location: [facility] Chest CTA 06/23/25 15:35 IMPRESSION: 1. No pulmonary arterial emboli identified. 2. No thoracic aortic aneurysm or dissection. 3. Cardiomegaly with predominantly left atrial enlargement. 4. No airspace consolidation/edema, or pleural effusions. Reading Location: [facility] Physical Exam Narrative General: Alert, Oriented x3, Cooperative, No apparent distress HEENT: Atraumatic, PERRLA, EOMI, Normocephalic Oral: Moist Mucosa Neck: Supple, No JVD Lungs: Diminished, Normal air movement, No rhonchi, No wheeze, No rales Cardiovascular: Irregular rate and rhythm, Normal S1, Normal S2, No murmurs Abdomen: Soft, Non Tender, Non-Distended, No Hepato-splenomegaly Extremities: No edema, Capillary Refill Less than 3 Seconds Skin: No rashes, No breakdown Musculoskeletal: No Tenderness to Palpation of Joints or Extremities Neurological: No focal neurological deficits, moves all extremities, sensation intact Psych/Mental Status: Normal Affect, Appropriate Assessment & Plan Assessment/Plan (1) Atrial flutter with rapid ventricular response: PLAN: Plan 1. Paroxysmal A-fib/essential HTN/HLD/chronic systolic CHF ? Continue on Eliquis ? Cardiology has been consulted no need to repeat echo as this was done recently ? Currently on a Cardizem drip, heart rate is still elevated therefore we will restart her metoprolol. ? Patient was complaining of some fatigue however literature review does not show a connection between metoprolol and Guwoizs-Abmng-Chzpm disease. Therefore if the metoprolol is controlling her heart rate then we will continue with the metoprolol ? Unclear as to why the flecainide was discontinued ? Echo 35% EF and global hypokinesis of the left ventricle 2. Hypothyroidism ? Stable ? Continue with Synthroid 3. Anxiety/depression ? Stable ? Continue with her home medications 4. Yjdpmlu-Wzfit-Vearb with muscular dystrophy ? Continue with PT and OT evaluation DVT: Eliquis Charges/Coding Visit Charges Inpatient E&M: 05952 Subs Hosp L2
[2025-06-24] MEDS: 0.9% Normal Saline (250mL Bag) 250 ML 15 ML IV (12:06)
[2025-06-24] MEDS: Potassium Phosphate 21 MM in 0.9% Normal Saline (250mL Bag) 250 ML 84 MM IV (13:17)
--- NOTE | 2025-06-24 16:08 | PCM.CONS.C ---
Assessment & Plan Assessment/Plan (1) CMT (Hzbnbtc-Nzzer-Dvcgo disease): (2) Muscular dystrophy: (3) Atrial flutter with rapid ventricular response: (4) DDD (degenerative disc disease), lumbar: (5) Hypothyroidism: PLAN: Cardiac care plan; 74-year-old patient seen and evaluated at bedside Patient with known history of CMT/charcoaled Stefania tooth syndrome Has a chronic systolic heart failure with a ejection fraction in previous echocardiogram 35% with global hypokinesia of the left ventricle. Patient has a history of atrial for flutter and has been on medication for rate control with diltiazem. As well she has been on OAC with apixaban 5 mg twice daily. She did complain that she has some bruises. She has been previously on flecainide and diltiazem. Patient could not tolerate beta-nirmal and flecainide is obviously not a good choice in her case Due to reduced LV function with EF around 35% Therefore we will continue on anticoagulation with Eliquis. In addition to rate control using digoxin and diltiazem. If she remained stable clinically from cardiac standpoint she can be discharged to follow-up with her primary didactic instructor for continuation of cardiac care. Cardiac care plan explained in detail to the patient family at bedside as well as to the nursing staff. Paxton Denis MD,[facility] forest fire specialist supervisor. HPI Consult Data Date of Consult: 06/24/25 HPI Narrative Reason for Consultation: Charcoaled Stefania tooth syndrome/atrial flutter with RVR/reduced EF to 35% HPI Narrative: AYDE YATES, is a 74 F who presents [facility] Medical History Anxiety Osteoporosis Kidney stones Former smoker Atrial fibrillation Muscular dystrophy Paroxysmal atrial tachycardia Non-rheumatic mitral regurgitation Nonrheumatic mitral (valve) prolapse Paroxysmal atrial fibrillation History of kidney stones Left bundle branch block Hdenycp-Gvujz-Tvnja disease Hypotension Depression Home Medications ?Medication ?Instructions ?Recorded ?Last Taken ?Type levothyroxine 125 mcg tablet 125 mcg PO QODAY 11/28/23 06/22/25 History levothyroxine 112 mcg tablet 112 mcg PO QODAY 04/20/25 06/23/25 History diltiazem HCl 120 mg 120 mg PO QDAY #90 caps 06/22/25 06/22/25 Rx capsule,extended release 24 hr (Cartia XT) apixaban 5 mg tablet (Eliquis) 5 mg PO BID 06/23/25 06/23/25 History citalopram 10 mg tablet 10 mg PO DAILY 06/23/25 06/22/25 History cyclobenzaprine 10 mg tablet 10 mg PO DAILY PRN pain 06/23/25 Unknown History metoprolol tartrate 50 mg tablet 50 mg PO Q12H 06/23/25 06/22/25 History Allergy/AdvReac Type Severity Reaction Status Date / Time prednisone Allergy Intermediate Rash Verified 06/23/25 21:07 ciprofloxacin AdvReac Intermediate Nausea/Vom/ Verified 06/23/25 21:07 Diarrhea adhesive AdvReac Rash Verified 06/23/25 21:07 Family History Mother Hypertension Breast cancer Brother Colon cancer Sister Hypertension Daughter CAD (coronary artery disease) Father Colon cancer Surgical History Hx of thyroidectomy History of appendectomy History of lithotripsy (~10/2017) Hx of cholecystectomy H/O: section H/O: hysterectomy Hx of knee surgery Hx of foot surgery History of tonsillectomy Social History Smoking Status: Former smoker how long ago did patient quit smokin years ago alcohol intake: current alcohol intake frequency: a few times a month caffeine: Yes Type: coffee Number of servings: 2 Physical Exam Cardio Cardio Narrative: Seen and evaluated at bedside along with the nursing staff Comfortable in bed no symptoms reported. 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 Objective Data Vital Signs: Vital Signs Temp Pulse Resp BP Pulse Ox O2 Del Method O2 Flow Rate 98.7 F 123 H 26 H 132/69 H 94 Room Air 2 06/24/25 12:00 06/24/25 14:00 06/24/25 14:00 06/24/25 14:00 06/24/25 14:00 06/24/25 14:00 06/24/25 08:18 Oxygen Flow Rate (L/min) 2 Oxygen Delivery Method Room Air Weight: 164 lb 7.437 oz Body Mass Index (BMI) 29.1 Intake & Output: Intake and Output for Last 24 Hours 06/22/25 06/23/25 06/24/25 23:59 23:59 23:59 Intake Total 47.08 / 47.08 1591.67 / 1591.67 Output Total 800 / 800 Balance 47.08 / -402.92 791.67 / 791.67 Lab / Micro Data 06/24/25 06:40 06/24/25 06:40 Labs: Laboratory Results - last 24 hr 06/23/25 14:06: PT 15.5 H, INR 1.2, APTT 27.6, Magnesium 2.0, NT pro BNP II 685 06/23/25 15:50: Troponin T Hi Sens 2 Hr 13 06/23/25 17:50: Troponin T Hi Sens 4Hr Cancelled 06/24/25 06:40: WBC 7.3, RBC 4.04 L, Hgb 13.3, Hct 39.2, MCV 97.0, MCH 32.9 H, MCHC 33.9, RDW Std Deviation 46.2 H, RDW Coeff of Viktoria 12.9, Plt Count 205, MPV 10.5, Immature Gran % (Auto) 0.400, Neut % (Auto) 78.0 H, Lymph % (Auto) 11.2 L, [place] % (Auto) 8.7, Eos % (Auto) 1.4, Baso % (Auto) 0.3, Absolute Neuts (auto) 5.7, Absolute Lymphs (auto) 0.82 L, Nucleated RBC % 0, Sodium 138, Potassium 3.9, Chloride 103, Carbon Dioxide 23.8, Anion Gap 11, BUN 10, Creatinine 0.58 L, Estim Creat Clear Calc 57.88, Est GFR (MDRD) Non-Af 94, BUN/Creatinine Ratio 16.6, Glucose 104 H, Calcium 9.0, Phosphorus 2.2 L, Total Bilirubin 1.21, AST 23, ALT 18, Alkaline Phosphatase 96, Total Protein 6.2, Albumin 3.5, Globulin 2.7, Albumin/Globulin Ratio 1.3, TSH 0.422 Cardiology Labs/Tests 06/23/25 14:06: PT 15.5 H, INR 1.2, APTT 27.6, Magnesium 2.0 06/24/25 06:40: WBC 7.3, RBC 4.04 L, Hgb 13.3, Hct 39.2, MCV 97.0, MCH 32.9 H, MCHC 33.9, Plt Count 205, MPV 10.5, Immature Gran % (Auto) 0.400, Neut % (Auto) 78.0 H, Lymph % (Auto) 11.2 L, [place] % (Auto) 8.7, Eos % (Auto) 1.4, Baso % (Auto) 0.3, Absolute Neuts (auto) 5.7, Nucleated RBC % 0, Sodium 138, Potassium 3.9, Chloride 103, Carbon Dioxide 23.8, Anion Gap 11, BUN 10, Creatinine 0.58 L, Est GFR (MDRD) Non-Af 94, BUN/Creatinine Ratio 16.6, Glucose 104 H, Calcium 9.0, Phosphorus 2.2 L, Total Bilirubin 1.21 Rhythm: EKG: ECHO: Stress Test: Cardiac Cath: PCI: CT Surgery: Holter monitor: EPS: PPM: CXR: Chest CT Scan: Radiography Diagnostic Testing: Radiology Impression Chest CTA 06/23/25 15:35 IMPRESSION: 1. No pulmonary arterial emboli identified. 2. No thoracic aortic aneurysm or dissection. 3. Cardiomegaly with predominantly left atrial enlargement. 4. No airspace consolidation/edema, or pleural effusions. Reading Location: [id number] Risk Score for UA/STEMI Assesmment (YES = 1) Risk Stratification Applicable: No
[2025-06-24] MEDS: Digoxin 250 MCG/ML Ampul 125 MCG IV (20:25)
[2025-06-25] VITALS (16 sets, daily range): BP systolic 96–134; BP diastolic 49–90; PULSE 79–115; RESP 14–23; TEMP 36.4–36.8; O2SAT 92–97; BMI 28.8
[2025-06-25 05:11] LABS: Hematocrit 35.7 % (37-47); Hemoglobin 12.3 g/dL (12.0-15.0); Immature Granulocytes Count 0.020 X10^3/uL (0.0-0.0); Mean Corp Hgb Conc 34.5 g/dL (32-36); Mean Corpuscular Volume 97.8 fL (81-99); Mean Platelet Vol. 10.6 fl (6.2-12.0); NRBC Flagged by Analyzer 0 % (0-5); Platelet Count 217 K/mm3 (150-450); RBC Distribution Width CV 13.0 % (11.6-14.6); RBC Distribution Width SD 46.7 fl (35.1-43.9); Red Blood Count 3.65 M/mm3 (4.2-5.4); White Blood Count 5.4 K/mm3 (4.4-11.0)
[2025-06-25 05:40] LABS: Anion Gap 8 (5-15); BUN 9 mg/dL (4-19); BUN/Creat Ratio 17.4 RATIO (10-20); Calcium,Total 8.7 mg/dL (7.6-11.0); Carbon Dioxide 23.1 mmol/L (21.0-32.0); Chloride 108 mmol/L (98-108); Estimated Creatinine Clearance 57.57 ml/min (50-250); Glucose 110 mg/dL (70-99); Potassium 4.1 mmol/L (3.3-5.1)
[2025-06-25] MEDS: Diltiazem 125 MG in Dextrose 5%-Water (100mL Bag) 100 ML 15 MG IV (06:05)
[2025-06-25] MEDS: APIXABAN 5 MG TABLET PO ×2 (08:41→21:13)
[2025-06-25] MEDS: Ensure Plus High Protein 120 ML LIQUID PO ×3 (08:41→18:11)
--- NOTE | 2025-06-25 10:20 | CASEMGMT ---
RN?CM?ASSESSMENT ? RN?CM?to room to meet with patient for initial transition planning/care coordination?assessment.?RN?CM?introduced self and role at [facility].? Pt voices understanding and consents to?assessment?at this time.? Pt sitting up in chair in no distress at this time.? Pt is A/O at this time and answers all questions appropriately.?? Care providers, pharmacy, and demographics verified/updated at this time. ? Strata: 2 PCP: Dr Olmstead Specialists: G/cardiology-- Dr Scruggs & Arnie Garcia Preferred Pharmacy: [facility] Retail Insurance: MMO [facility] Prescription Benefit:?yes LNOK: Daughter, Roya Living Arrangements: Lives w/daughter, Roya, in one-story home w/2 steps to enter. Independent w/ADL's, manages her own medications, does light housework, and prepares simple meals. 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 Daughter does grocery shopping and most meals. They hire a cleaning lady every 3 weeks. Transportation:?Pt states drives self and states no transportation concerns at this time.? DME: ?States has the following DME:?shower chair, rollator, FWW, cane, adjustable bed, lift chair, grab bars, toilet siderails, comfort height commode. Pt wears braces/shoes for longer ambulation. She can walk short distances w/out them. Pt states no need for further DME at this time.? HHC/SNF: No hx of either. Pt has done OP therapy @ [facility] in the past. Pt states she knows what exercises to do @ home and does them daily. ? Pt wishes to return home and states has no concerns with going home at time of discharge. She declines wanting HHC or OP therapy. Pt voices no concerns/needs at this time.? Advised pt to ask for?CM?if any questions/concerns/needs arise.? Voices understanding. ? PLAN:??Home ? Radha BSN?RN?CM
--- NOTE | 2025-06-25 15:08 | EKG12_ITS ---
Test Reason : afib Blood Pressure : */* mmHG Vent. Rate : 63 BPM Atrial Rate : 63 BPM P-R Int : 184 ms QRS Dur : 116 ms QT Int : 442 ms P-R-T Axes : 5 -53 16 degrees QTcB Int : 452 ms Normal sinus rhythm Left axis deviation Minimal voltage criteria for LVH, may be normal variant ( [place] product ) Anteroseptal infarct , age undetermined Abnormal ECG When compared with ECG of 29-Jul-2025 11:05, MANUAL COMPARISON REQUIRED DATA IS UNCONFIRMED Confirmed by VANDANA RHODES, RASHAD ([id number]), content editor PATTI AVILEZ ([id number]) on 08/03/2025 6:37:38 AM Referred By: Kael Confirmed By: RASHAD ROSS MD
--- NOTE | 2025-06-25 16:00 | PN.HOSP_ITS ---
Subjective Subjective Doing well, no issues overnight heart rhythm is still in A-fib/flutter Objective Data Objective Data Vital Signs: Vital Signs Temp Pulse Resp BP Pulse Ox O2 Del Method O2 Flow Rate 98 F 115 H 14 127/66 H 97 Room Air 2 06/25/25 13:06 06/25/25 13:06 06/25/25 13:06 06/25/25 13:06 06/25/25 13:06 06/25/25 14:57 06/24/25 08:18 Oxygen Flow Rate (L/min) 2 Oxygen Delivery Method Room Air Weight: 162 lb 11.218 oz Body Mass Index (BMI) 28.8 Intake & Output: Intake and Output for Last 24 Hours 06/24/25 06/25/25 06/26/25 03:59 03:59 03:59 Intake Total 95.83 / 110.83 2350.92 / 2365.92 756.16 / 756.16 Output Total 450 / 450 350 / 350 Balance -354.17 / -339.17 1999.92 / 2014. 756.16 / 756.16 Lab / Micro Data 06/25/25 04:52 06/25/25 04:52 Labs: Laboratory Results - last 24 hr 06/25/25 04:52: WBC 5.4, RBC 3.65 L, Hgb 12.3, Hct 35.7 L, MCV 97.8, MCH 33.7 H, MCHC 34.5, RDW Std Deviation 46.7 H, RDW Coeff of Viktoria 13.0, Plt Count 217, MPV 10.6, Immature Gran % (Auto) 0.400, Neut % (Auto) 66.1, Lymph % (Auto) 20.8, M homer % (Auto) 10.3 H, Eos % (Auto) 2.2, Baso % (Auto) 0.2, Absolute Neuts (auto) 3.6, Absolute Lymphs (auto) 1.13, Nucleated RBC % 0, Sodium 139, Potassium 4.1, Chloride 108, Carbon Dioxide 23.1, Anion Gap 8, BUN 9, Creatinine 0.54 L, Estim Creat Clear Calc 57.57, Est GFR (MDRD) Non-Af 95, BUN/Creatinine Ratio 17.4, G lucose 110 H, Calcium 8.7, Phosphorus 2.9 Physical Exam Narrative General: Alert, Oriented x3, Cooperative, No apparent distress HEENT: Atraumatic, PERRLA, EOMI, Normocephalic Oral: Moist Mucosa Neck: Supple, No JVD Lungs: Diminished, Normal air movement, No rhonchi, No wheeze, No rales Cardiovascular: Irregular rate and rhythm, Normal S1, Normal S2, No murmurs Abdomen: Soft, Non Tender, Non-Distended, No Hepato-splenomegaly Extremities: No edema, Capillary Refill Less than 3 Seconds Skin: No rashes, No breakdown Musculoskeletal: No Tenderness to Palpation of Joints or Extremities Neurological: No focal neurological deficits, moves all extremities, sensation intact Psych/Mental Status: Normal Affect, Appropriate Assessment & Plan Assessment/Plan (1) Atrial flutter with rapid ventricular response: PLAN: Plan 1. Paroxysmal A-fib/essential HTN/HLD/chronic systolic CHF ? Continue on Eliquis ? Cardiology has been consulted no need to repeat echo as this was done recently ? Will discontinue the Cardizem drip and continue with p.o. Cardizem and digoxin as she refuses to take metoprolol because of GI side effects ? Echo 35% EF and global hypokinesis of the left ventricle, and because of the reduced EF she can no longer take flecainide 2. Hypothyroidism ? Stable ? Continue with Synthroid 3. Anxiety/depression ? Stable ? Continue with her home medications 4. Zwbkvyi-Tzmwf-Guvts with muscular dystrophy ? Continue with PT and OT evaluation DVT: Eliquis Charges/Coding Visit Charges Inpatient E&M: 17081 Subs Hosp L2
[2025-06-26] VITALS (9 sets, daily range): BP systolic 109–127; BP diastolic 65–81; PULSE 119–130; RESP 16–18; TEMP 36.4–37.1; O2SAT 93–98; BMI 29.2
[2025-06-26] MEDS: Ensure Plus High Protein 120 ML LIQUID PO ×3 (08:47→16:20)
[2025-06-26] MEDS: APIXABAN 5 MG TABLET PO ×2 (08:48→21:00)
--- NOTE | 2025-06-26 16:36 | PCM.PN.HOSP ---
Subjective Subjective Remains in A-fib at 130. Denies any chest pain or lightheadedness Objective Data Objective Data Vital Signs: Vital Signs Temp Pulse Resp BP Pulse Ox O2 Del Method O2 Flow Rate 98.6 F 129 H 16 127/75 H 97 Room Air 2 06/26/25 16:23 06/26/25 16:23 06/26/25 16:23 06/26/25 16:23 06/26/25 16:23 06/26/25 16:23 06/24/25 08:18 Oxygen Flow Rate (L/min) 2 Oxygen Delivery Method Room Air Weight: 164 lb 14.492 oz Body Mass Index (BMI) 29.2 Intake & Output: Intake and Output for Last 24 Hours 06/25/25 06/26/25 06/27/25 03:59 03:59 03:59 Intake Total 2350.92 / 2365.92 1231.16 / 1231.16 360 / 360 Output Total 350 / 350 Balance 1999.92 / 2014.92 1231.16 / 1231.16 360 / 360 Lab / Micro Data 06/25/25 04:52 06/25/25 04:52 Physical Exam Narrative General: Alert, Oriented x3, Cooperative, No apparent distress HEENT: Atraumatic, PERRLA, EOMI, Normocephalic Oral: Moist Mucosa Neck: Supple, No JVD Lungs: Diminished, Normal air movement, No rhonchi, No wheeze, No rales Cardiovascular: Irregular rate and rhythm, Normal S1, Normal S2, No murmurs Abdomen: Soft, Non Tender, Non-Distended, No Hepato-splenomegaly Extremities: No edema, Capillary Refill Less than 3 Seconds Skin: No rashes, No breakdown Musculoskeletal: No Tenderness to Palpation of Joints or Extremities Neurological: No focal neurological deficits, moves all extremities, sensation intact Psych/Mental Status: Normal Affect, Appropriate Assessment & Plan Assessment/Plan (1) Atrial flutter with rapid ventricular response: PLAN: Plan 1. Paroxysmal A-fib with RVR/essential HTN/HLD/chronic systolic CHF ? Continue on Eliquis ? Cardiology has been consulted no need to repeat echo as this was done recently ? Cardizem drip has been discontinued, initially she was transition to p.o. Cardizem of 240 mg daily however cardiology altered this to 120 mg p.o. twice daily and she has also been started on digoxin however since she remained in rapid A-fib, I discussed with cardiology about transitioning to amiodarone which they agree therefore we will trial her on 200 mg p.o. twice daily with the first dose now and discontinue digoxin. ? Echo 35% EF and global hypokinesis of the left ventricle, and because of the reduced EF she can no longer take flecainide 2. Hypothyroidism ? Stable ? Continue with Synthroid 3. Anxiety/depression ? Stable ? Continue with her home medications 4. Jibqimv-Iuaeg-Jamyh with muscular dystrophy ? Continue with PT and OT evaluation DVT: Eliquis Charges/Coding Visit Charges Inpatient E&M: 87508 Subs Hosp L2
[2025-06-27 03:37] VITALS: BP 127/82; PULSE 120; RESP 18; TEMP 36.1; O2SAT 99
[2025-06-27 04:40] VITALS: BMI 29.7
[2025-06-27 05:53] LABS: Hematocrit 39.7 % (37-47); Hemoglobin 13.3 g/dL (12.0-15.0); Immature Granulocytes Count 0.010 X10^3/uL (0.0-0.0); Mean Corp Hgb Conc 33.5 g/dL (32-36); Mean Corpuscular Volume 98.3 fL (81-99); Mean Platelet Vol. 10.5 fl (6.2-12.0); NRBC Flagged by Analyzer 0 % (0-5); Platelet Count 264 K/mm3 (150-450); RBC Distribution Width CV 13.0 % (11.6-14.6); RBC Distribution Width SD 46.5 fl (35.1-43.9); Red Blood Count 4.04 M/mm3 (4.2-5.4); White Blood Count 4.9 K/mm3 (4.4-11.0)
[2025-06-27 06:53] LABS: Anion Gap 8 (5-15); BUN 17 mg/dL (4-19); BUN/Creat Ratio 26.5 RATIO (10-20); Calcium,Total 9.7 mg/dL (7.6-11.0); Carbon Dioxide 28.1 mmol/L (21.0-32.0); Chloride 105 mmol/L (98-108); Estimated Creatinine Clearance 58.40 ml/min (50-250); Glucose 104 mg/dL (70-99); Potassium 4.8 mmol/L (3.3-5.1)
[2025-06-27 09:30] VITALS: BP 110/74; PULSE 130; RESP 18; TEMP 36.7; O2SAT 94
[2025-06-27] MEDS: APIXABAN 5 MG TABLET PO ×2 (09:59→21:02)
[2025-06-27] MEDS: Ensure Plus High Protein 120 ML LIQUID PO ×2 (12:08→16:34)
[2025-06-27 15:30] VITALS: BP 142/79; PULSE 126; RESP 18; TEMP 36.8; O2SAT 95
--- NOTE | 2025-06-27 16:19 | PCM.PN.HOSP ---
Subjective Subjective Discussed her issues were on metoprolol, and she thought that the metoprolol was leading to her abdominal hardness, discussed that that is not a side effect of metoprolol generally and that he might be a better medication to try to control her heart rate. Will trial it today Objective Data Objective Data Vital Signs: Vital Signs Temp Pulse Resp BP Pulse Ox O2 Del Method O2 Flow Rate 98.1 F 130 H 18 110/74 94 Room Air 2 06/27/25 09:30 06/27/25 09:30 06/27/25 09:30 06/27/25 09:30 06/27/25 09:30 06/27/25 14:59 06/24/25 08:18 Oxygen Flow Rate (L/min) 2 Oxygen Delivery Method Room Air Weight: 167 lb 8.821 oz Body Mass Index (BMI) 29.7 Intake & Output: Intake and Output for Last 24 Hours 06/26/25 06/27/25 06/28/25 03:59 03:59 03:59 Intake Total 1231.16 / 1231.16 720 / 720 360 / 360 Balance 1231.16 / 1231.16 720 / 720 360 / 360 Lab / Micro Data 06/27/25 05:36 06/27/25 05:36 Labs: Laboratory Results - last 24 hr 06/27/25 05:36: WBC 4.9, RBC 4.04 L, Hgb 13.3, Hct 39.7, MCV 98.3, MCH 32.9 H, MCHC 33.5, RDW Std Deviation 46.5 H, RDW Coeff of Viktoria 13.0, Plt Count 264, MPV 10.5, Immature Gran % (Auto) 0.200, Neut % (Auto) 56.1, Lymph % (Auto) 31.6, [place] % (Auto) 7.8, Eos % (Auto) 3.7, Baso % (Auto) 0.6, Absolute Neuts (auto) 2.7, Absolute Lymphs (auto) 1.54, Nucleated RBC % 0, Sodium 141, Potassium 4.8, Chloride 105, Carbon Dioxide 28.1, Anion Gap 8, BUN 17, Creatinine 0.65 L, Estim Creat Clear Calc 58.40, Est GFR (MDRD) Non-Af 91, BUN/Creatinine Ratio 26.5 H, Glucose 104 H, Calcium 9.7 Physical Exam Narrative General: Alert, Oriented x3, Cooperative, No apparent distress HEENT: Atraumatic, PERRLA, EOMI, Normocephalic Oral: Moist Mucosa Neck: Supple, No JVD Lungs: Diminished, Normal air movement, No rhonchi, No wheeze, No rales Cardiovascular: Irregular rate and rhythm, Normal S1, Normal S2, No murmurs Abdomen: Soft, Non Tender, Non-Distended, No Hepato-splenomegaly Extremities: No edema, Capillary Refill Less than 3 Seconds Skin: No rashes, No breakdown Musculoskeletal: No Tenderness to Palpation of Joints or Extremities Neurological: No focal neurological deficits, moves all extremities, sensation intact Psych/Mental Status: Normal Affect, Appropriate Assessment & Plan Assessment/Plan (1) Atrial flutter with rapid ventricular response: PLAN: Plan 1. Paroxysmal A-fib with RVR/essential HTN/HLD/chronic systolic CHF ? Continue on Eliquis ? Cardiology has been consulted no need to repeat echo as this was done recently ?Continue with amiodarone at 200 mg p.o. twice daily ? Will transition her from Cardizem to metoprolol ? Echo 35% EF and global hypokinesis of the left ventricle, and because of the reduced EF she can no longer take flecainide 2. Hypothyroidism ? Stable ? Continue with Synthroid 3. Anxiety/depression ? Stable ? Continue with her home medications 4. Pblrkut-Mnpre-Rrotg with muscular dystrophy ? Continue with PT and OT evaluation DVT: Eliquis Charges/Coding Visit Charges Inpatient E&M: 71087 Subs Hosp L2
[2025-06-27 16:34] VITALS: BP 142/79; PULSE 126
[2025-06-27 20:57] VITALS: BP 125/56; PULSE 85; RESP 18; TEMP 36.5; O2SAT 94
[2025-06-27 21:02] VITALS: PULSE 85
[2025-06-27] MEDS: 0.9% Saline Lock 10 ML Syringe IV (21:02)
[2025-06-28 00:30] VITALS: BP 120/73; PULSE 92; RESP 18; TEMP 36.8; O2SAT 96
[2025-06-28 03:49] VITALS: BMI 29.1
[2025-06-28 04:54] VITALS: BP 117/70; PULSE 121; RESP 16; TEMP 36.6; O2SAT 94
[2025-06-28 04:56] VITALS: PULSE 121
[2025-06-28 09:00] VITALS: BP 134/92; PULSE 80; RESP 18; TEMP 36.5; O2SAT 95
[2025-06-28 09:14] VITALS: PULSE 88
[2025-06-28] MEDS: APIXABAN 5 MG TABLET PO (09:14)
[2025-06-28] MEDS: Ensure Plus High Protein 120 ML LIQUID PO ×2 (09:14→11:46)
--- NOTE | 2025-06-28 11:25 | PCM.DC ---
Discharge Instructions DC O2, CPAP, BIPAP needs Home O2 Discharge instructions: No Dressing / Incision Discharge Activity: Return to Normal Activity Dressing / Incision Call your doctor if you observe: Fever of 101 or Higher, Shortness of breath, Dizziness, Fainting spells, Swelling in the ankles, Chest pain and Increased palpitations (irregular heartbeat) Follow Up Care Test Results: Test results from this visit will be discussed in further detail at your follow-up appointment, if applicable. Discharge Plan Admission Admit Date/Time: 06/24/25 15:12 Attending Provider: Juan J Gerardo Primary Care Provider: Olivier Olmstead Chi Consulting Providers: Tristen Lema; Donnell Matamoros; Lyn Lamas; Viki Miranda; Page Underwood; Killian Rivera; Ernesto Dudley; Jose Gomez; Garo Delcid; Paxton Denis; Anastacio Scruggs; Clayton Pearson; Lily Andrade; Asim Ruiz; Jose Mccall; Jordon Saunders NP; Sondra Bhatia; Arnie Garcia; Garo Monzon Discharge Orders/Prescriptions Prescriptions: New amiodarone 200 mg Tablet 200 mg PO DAILY 30 Days Qty: 30 3RF Rx Instructions: Take 1 tablet twice daily for 3 more days then take 1 tablet daily metoprolol tartrate 50 mg tablet 75 mg PO BID 30 Days Qty: 90 0RF Continued levothyroxine 125 mcg tablet 125 mcg PO QODAY Patient Comments: alternating with 112mcg Rx Instructions: qod levothyroxine 112 mcg tablet 112 mcg PO QODAY Patient Comments: alternating with 125mcg cyclobenzaprine 10 mg tablet 10 mg PO DAILY PRN (Reason: pain) citalopram 10 mg tablet 10 mg PO DAILY Eliquis 5 mg tablet 5 mg PO BID Discontinued metoprolol tartrate 50 mg tablet 50 mg PO Q12H diltiazem HCl [Cartia XT] 120 mg capsule,extended release 24hr 120 mg PO QDAY Qty: 90 3RF Referrals / Follow Up: Olivier Olmstead Chi, MD [Primary Care Provider] - Arnie Garcia PA [Med Staff - [facility]] - Within 2 Weeks Disposition Disposition (needs filled in before D/C Order can be placed): Home, Self Care
[2025-06-28 11:45] VITALS: BP 111/75; PULSE 93
--- NOTE | 2025-06-28 14:48 | DS.PCM_ITS ---
Providers Date of Admission: 06/24/25 Primary Care Physician: Dr. Olivier Olmstead MD Consultations 06/23/25 20:47 Consult: Cardiology Routine Consulting Provider: [facility] Reason for Consult: PAF; with RVR. EMERGENT Consult: No MD Notified: Yes Date Notified: 06/23/25 Time Notified: 20:20 Method of Notification: ED Physician Initiated Method of Consult:: In-Person Reason For Visit: PAF; WITH RVR & CHEST PRESSURE Diagnosis Discharge Diagnosis (1) Atrial flutter with rapid ventricular response: Status: Acute Code(s): I48.92 - Unspecified atrial flutter Medications at Discharge Home Medications levothyroxine 125 mcg tablet 125 mcg PO QODAY 11/28/23 levothyroxine 112 mcg tablet 112 mcg PO QODAY 04/20/25 apixaban 5 mg tablet (Eliquis) 5 mg PO BID 06/23/25 citalopram 10 mg tablet 10 mg PO DAILY 06/23/25 cyclobenzaprine 10 mg tablet 10 mg PO DAILY PRN pain 06/23/25 amiodarone 200 mg tablet 200 mg PO DAILY 30 days #30 tabs 06/28/25 metoprolol tartrate 50 mg tablet 75 mg (1.5 x 50 mg) PO BID 30 days #90 tabs 06/28/25 Hospital Course Operations None Procedures None Summary of Care Provided Minutes Spent on Discharge: 33 Hospital Course: Per HPI: AYDE YATES, is a 74 F with a past medical history of essential hypertension; on metoprolol BID, hypothyroidism; on levothyroxine, overweight; with BMI of 29.5 this admission, remote history of tobacco abuse (quit ~1983), paroxysmal atrial flutter; on diltiazem plus apixaban BID followed by [facility], history of chronic systolic CHF; with LVEF ~35% with global HK of the Left ventricle (06/11/2025), history of LBBB, history of non-rheumatic mitral valve prolapse/regurgitation, history of Charcot-Stefania Tooth disease, depression; on citalopram, history of renal calculi, muscular dystrophy, osteoporosis and OA; with lumbar spondylosis and back pain who presents to [facility] ER complaining of chest pain and atrial fibrillation; with RVR. Ms. Yates reports she was recently taken of flecainide and diltiazem in favor of metoprolol with subsequent stomach pain - with patient also noting that metoprolol is known to potentially exacerbate Charcot-Stefania Tooth disease. She then recontacted [facility] and she was then instructed to take her diltiazem and stop her metoprolol. Unfortunately, in spite of these interventions she developed a subsequent increased heart rate with a corresponding sensation of chest pressure so she decided to come in for further evaluation and management. A family member informed the Er provider that she had recently started taking her apixaban due to concerns about bruising - but she started taking it after her PCP emphasized her elevated risk of CVA. She denies associated fever, chills, vomiting, diarrhea, constipation, dysuria, hematuria, headache or rash. In the ER she was diagnosed with PAF; with RVR up to ~139 bpm with ER physician speaking to junior marketing associate on-call due to patient's intolerance to metoprolol and ineffectiveness of oral diltiazem with patient recommended to receive IV diltiazem bolus and not using amiodarone due to her CHF and recent restarting of DOAC. She was then admitted to PCU under observation status for ongoing care for a stay that is expected to be less than 2 midnights. Hospital Course: 1. Atrial flutter with RVR/essential HTN/HLD/chronic systolic CHF?74-year-old female presented to the hospital with mild chest pain and palpitations. She was found to be in atrial fibrillation/flutter with RVR. She used to be maintained on flecainide and diltiazem however recent echocardiogram demonstrating EF of 35% with global hypokinesis of the left ventricle so she was taken off of flecainide and Cardizem and transition to metoprolol however she said that metoprolol was causing stomach pains so she tried to go back on the Cardizem however it was not controlling her heart rate. We initially placed on a Cardizem drip with transition to the increased dosages of oral Cardizem and digoxin however neither of which controlled either her rate or her rhythm. I switched her to amiodarone 200 mg p.o. twice daily which did bring her out of a flutter/fib however she remained tachycardic. After extensive discussion with her we reinstituted beta-blockade with metoprolol at 50 mg p.o. twice daily, this did improve her rate control but she did have periods of jumping back up into the 120s so she was increased to 75 mg p.o. twice daily today on the day of discharge which did control her heart rate much better and did not significantly lower her blood pressure. I discussed with her the plan for discharge and she expressed understanding of the risks and benefits of going home and would like to go home today. Will plan for amiodarone 200 mg p.o. twice daily for a few more days and then transition to daily dosing. Will also continue with metoprolol 75 mg p.o. twice daily. I recommend that she follow-up with cardiology in a few weeks and with her PCP in 3 to 5 days. 2. Hypothyroidism, anxiety, depression, Hwrtniu-Tjlae-Usqyl, muscular dystrophy are all chronic medical conditions which complicate her care. Her home medications were continued where appropriate Weight / BMI Weight Weight: 164 lb 7.437 oz Body Mass Index (BMI) 29.1 ABG / Lab / Microbiology Data 06/27/25 05:36 06/27/25 05:36 D/C Instructions Call your doctor if you observe: Fever of 101 or Higher, Shortness of breath, Dizziness, Fainting spells, Swelling in the ankles, Chest pain and Increased palpitations (irregular heartbeat) DC O2, CPAP, BIPAP Needs Home O2 Discharge instructions: No Meaningful Use Info Meaningful Use Meaningful Use Diagnoses (Choose all that apply): None applicable Discharge Plan Admission Admit Date/Time: 06/24/25 15:12 Attending Provider: Juan J Gerardo Primary Care Provider: Olivier Olmstead Chi Consulting Providers: Tristen Lema; Donnell Matamoros; Lyn Lamas; Viki Miranda; Page Underwood; Killian Rivera; Ernesto Dudley; Jose Gomez; Garo Delcid; Paxton Denis; Anastacio Scruggs; Clayton Pearson; Lily Andrade; Asim Ruiz; Jose Mccall; Jordon Saunders NP; Sondra Bhatia; Arnie Garcia; Garo Monzon Discharge Orders/Prescriptions Prescriptions: New amiodarone 200 mg Tablet 200 mg PO DAILY 30 Days Qty: 30 3RF Rx Instructions: Take 1 tablet twice daily for 3 more days then take 1 tablet daily metoprolol tartrate 50 mg tablet 75 mg PO BID 30 Days Qty: 90 0RF Continued levothyroxine 125 mcg tablet 125 mcg PO QODAY Patient Comments: alternating with 112mcg Rx Instructions: qod levothyroxine 112 mcg tablet 112 mcg PO QODAY Patient Comments: alternating with 125mcg cyclobenzaprine 10 mg tablet 10 mg PO DAILY PRN (Reason: pain) citalopram 10 mg tablet 10 mg PO DAILY Eliquis 5 mg tablet 5 mg PO BID Discontinued metoprolol tartrate 50 mg tablet 50 mg PO Q12H diltiazem HCl [Cartia XT] 120 mg capsule,extended release 24hr 120 mg PO QDAY Qty: 90 3RF Referrals / Follow Up: Olivier Olmstead Chi, MD [Primary Care Provider] - Arnie Garcia PA [Med Staff - [facility] Prof] - Within 2 Weeks Disposition Disposition (needs filled in before D/C Order can be placed): Home, Self Care Charges/Coding Visit Charges Inpatient E&M: 07928 Disch Hosp >30min
== END 2025-06-28 13:20 | disposition home or self-care (01) | DRG 309 ==
LOC: ED 19:53 → PCU 20:28
PROVIDERS: Admitting Provider Internal Medicine; Emergency Provider Emergency Medicine; PCP Family Medicine Geriatric Medicine; Visit Provider Family Medicine
DX: I48.92 Unspecified atrial flutter (principal); I50.22 Chronic systolic (congestive) heart failure; E03.9 Hypothyroidism, unspecified; I11.0 Hypertensive heart disease with heart failure; F32.A Depression, unspecified; I34.1 Nonrheumatic mitral (valve) prolapse; I48.0 Paroxysmal atrial fibrillation; G60.0 Hereditary motor and sensory neuropathy; F41.9 Anxiety disorder, unspecified; I34.0 Nonrheumatic mitral (valve) insufficiency; M47.816 Spondylosis without myelopathy or radiculopathy, lumbar region; E78.5 Hyperlipidemia, unspecified; R10.9 Unspecified abdominal pain; T44.7X5A Adverse effect of beta-adrenoreceptor antagonists, initial encounter; M81.0 Age-related osteoporosis without current pathological fracture; M51.369 Other intervertebral disc degeneration, lumbar region without mention of lumbar back pain or lower extremity pain; E66.3 Overweight; Z79.899 Other long term (current) drug therapy; Z79.01 Long term (current) use of anticoagulants; Z87.891 Personal history of nicotine dependence; Z79.890 Hormone replacement therapy; Z68.29 Body mass index [BMI] 29.0-29.9, adult
CPT/HCPCS: 36415; 71045; 71275; 80048; 80053; 83735; 83880; 84100; 84443; 84484; 85025; 85610; 85730; 93005; 94668; 94762; 97162; 97166; 97530; 97802; 99285; Q9967; A4216

== ENCOUNTER → 2025-07-16 | Outpatient (CLI) | payer MEDICARE, SELFPAY | END | disposition home or self-care (01) | LOC: PSN 13:23 | PROVIDERS: PCP Family Medicine Geriatric Medicine; Referring Provider Student in an Organized Health Care Education/Training Program; Visit Provider Student in an Organized Health Care Education/Training Program | DX: I48.91 Unspecified atrial fibrillation (principal) | CPT/HCPCS: 93225; 93226 ==

== ENCOUNTER → 2025-07-21 | Outpatient (CLI) | payer MEDICARE, SELFPAY ==
[2025-07-21 15:07] LABS: Hematocrit 38.9 % (37-47); Hemoglobin 13.0 g/dL (12.0-15.0); Immature Granulocytes Count 0.010 X10^3/uL (0.0-0.0); Mean Corp Hgb Conc 33.4 g/dL (32-36); Mean Corpuscular Volume 99.7 fL (81-99); Mean Platelet Vol. 10.5 fl (6.2-12.0); NRBC Flagged by Analyzer 0 % (0-5); Platelet Count 213 K/mm3 (150-450); RBC Distribution Width CV 13.6 % (11.6-14.6); RBC Distribution Width SD 49.7 fl (35.1-43.9); Red Blood Count 3.90 M/mm3 (4.2-5.4); White Blood Count 4.9 K/mm3 (4.4-11.0)
[2025-07-21 16:35] LABS: Anion Gap 10 (5-15); BUN 15 mg/dL (4-19); BUN/Creat Ratio 21.4 RATIO (10-20); Calcium,Total 8.8 mg/dL (7.6-11.0); Carbon Dioxide 22.9 mmol/L (21.0-32.0); Chloride 106 mmol/L (98-108); Glucose 95 mg/dL (70-99); Potassium 4.8 mmol/L (3.3-5.1)
== END | disposition home or self-care (01) ==
LOC: POLAB3 14:51
PROVIDERS: PCP Family Medicine Geriatric Medicine; Visit Provider Student in an Organized Health Care Education/Training Program
DX: I48.0 Paroxysmal atrial fibrillation (principal)
CPT/HCPCS: 36415; 80048; 85025

== ENCOUNTER 2025-07-29 10:34 | Day surgery (SDC) | payer MEDICARE, SELFPAY ==
[2025-07-28 11:47] VITALS: BMI 30.4
--- NOTE | 2025-07-29 13:19 | CARDIOVERS ---
Cardioversion Cardioversion: Direct-current cardioversion Patient 75-year-old white female that was brought to the [employer] recovery area in the fasting state. The patient's been in atrial flutter and atrial fibrillation off and on since documented March 2025. She was admitted twice in May 30 admission she was placed on a combination of amiodarone and metoprolol for rate control of her atrial fibrillation. The patient has been on Eliquis for over 6 weeks. The patient was anesthetized with [address] Mario Marie. With appropriate monitoring the patient underwent a single 200 J synchronized shock. This resulted in the patient going into sinus rhythm at 64 bpm. The patient awoke with no obvious neurologic deficits. The patient will follow-up with an ECG in 1 week in the office and is scheduled to see Dr. Ruiz on August 07. She is scheduled to see Arnie August 14. Procedures Coronary Therapeutic CF Procedures [id number]: [id number] Cardioversion electric ext
--- NOTE | 2025-07-29 13:37 | PRO.PCM_ITS ---
Procedures Pulmonary Pulmonary Procedures /Diagnostic Testin Con Sedation Non-invasive Procedural Procedure Information Date of Procedure: 07/29/25 Description of procedure: CONSCIOUS SEDATION REPORT DATE OF SERVICE: July 29, 2025 BRIEF HISTORY OF PRESENT ILLNESS: The patient is a 75-year-old female who presented to [facility] to undergo an elective outpatient cardioversion due to underlying atrial fibrill ation. The patient denied any prior anesthetic complications. She has never previously undergone a cardioversion. She is systemically anticoagulated on Eliquis. Her last surface echocardiogram demonstrated an ejection fraction of 35%. The patient did report a history of obstructive sleep apnea, for which she eventually became noncompliant with conventional PAP therapy. PHYSICAL EXAMINATION: VITAL SIGNS: Reviewed and were acceptable. GENERAL: The patient is a female, in no apparent distress, speaking in full sentences. HEENT: Normocephalic, atraumatic. Mucous membranes are moist and pink. Good mouth opening noted. Trachea is midline. Good neck mobility. CHEST: S1, S2 irregularly irregular. No murmurs, rubs or gallops were noted. LUNGS: Clear to auscultation bilaterally without appreciable wheezes, rales or rhonchi. ABDOMEN: Soft, nontender, nondistended. Positive bowel sounds. EXTREMITIES: There is no clubbing, cyanosis or edema. ASA Class: II DESCRIPTION OF PROCEDURE: After confirmation of informed consent, the patient's anesthesia plan was reviewed in detail. Propofol was chosen. Risks and benefits were reviewed and the patient agreed to proceed. At 1305, the patient was given 4 mg of etomidate. The patient achieved an appropriate level of sedation and was given a 200 joule synchronized cardioversion by Dr. Scruggs at the bedside. This was successful in achieving normal sinus rhythm. The patient was monitored until 1320, at which time she reached her baseline mental status and function. The patient tolerated the procedure well. COMPLICATIONS: None ESTIMATED BLOOD LOSS: None RECOMMENDATIONS: Okay to recover in usual fashion.
== END 2025-07-29 14:15 | disposition home or self-care (01) ==
PROVIDERS: PCP Family Medicine Geriatric Medicine; Referring Provider Internal Medicine Cardiovascular Disease; Visit Provider Internal Medicine Cardiovascular Disease
DX: I48.0 Paroxysmal atrial fibrillation (principal); Z79.01 Long term (current) use of anticoagulants
CPT/HCPCS: 92960; 93005

== ENCOUNTER → 2025-09-09 | Outpatient (CLI) | payer MEDICARE, SELFPAY ==
--- OUTSIDE RECORDS SUMMARY | 2025-09-09 19:52 | XMS RPT_ITS | CCD ---
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 Olivier Olmstead Chi Primary Care Provider Ishan, Dr. Olivier Devries Referring Provider 1([facility])[phone] Payton Melendez Attending Provider 1([facility])-[phone] Ishan, Dr. Olivier Devries Primary Care Provider 1([facility])[phone] Ishan, Dr. Olivier Devries Referring Provider 1([facility])[phone] Dr. Claude Good Attending Provider Ishan, Dr. Olivier Devries Primary Care Provider Ishan, Dr. Olivier Devries Referring Provider Lebron MARCOS, INSTALLATION SUPERINTENDENT-C Ophelia Attending Provider Ishan, Dr. Olivier Devries Primary Care Provider Ishan, Dr. Olivier Devries Referring Provider Lebron INSTALLATION SUPERINTENDENT, INSTALLATION SUPERINTENDENT-C Ophelia Attending Provider Lebron INSTALLATION SUPERINTENDENT, INSTALLATION SUPERINTENDENT-C Ophelia Referring Provider Lebron INSTALLATION SUPERINTENDENT, INSTALLATION SUPERINTENDENT-C Ophelia Other Provider Dr. Page Underwood Attending Provider Dr. Cornelius Mcgovern Attending Provider [phone] Ishan RHODES, Dr. Olivier Devries Primary Care Provider Ishan RHODES, Dr. Olivier Devries Attending Provider [phone] Ishan RHODES, Dr. Olivier Devries Referring Provider [phone] Kael RHODES, Dr. Chaves Attending Provider Ishan RHODES, Dr. Olivier Devries Primary Care Provider [phone] Ishan RHODES, Dr. Olivier Devries Referring Provider Ishan RHODES, Dr. Olivier Devries Attending Provider Gurpreet HILL, Dr. Buchanan Emergency Provider Ishan RHODES, Dr. Olivier Devries Primary Care Provider Ishan RHODES, Dr. Olivier Devries Attending Provider Ishan RHODES, Dr. Olivier Devries Referring Provider Gurpreet HILL, Dr. Buchanan Attending Provider Arnie Schumacher Attending Provider Schwleon HILL, Dr. Gonzalez Referring Provider Schwleon HILL, Dr. Gonzalez Emergency Provider Schwleon HILL, Dr. Gonzalez Attending Provider Arnie Schumacher Referring Provider Jason RHODES, Dr. Garcia Attending Provider de Henrry DO, Dr. Wyman Admit Provider Unavail able de Henrry DO, Dr. Wyman Attending Provider Unav ailable de Henrry DO, Dr. Wyman Other Provider Unavail able Pita RHODES, Dr. Ramon Other Provider Unavailable Saturnino RHODES, Dr. Jacobo Other Provider Unavailable Cydney RHODES, Dr. Nicholson Other Provider Unavailable Ruben RHODES, Dr. Drew Other Provider Kj RHODES, Dr. Abel Other Provider Miguel RHODES, Dr. Daily Other Provider Luis Enrique RHODES, Dr. Orozco Other Provider Unavailable Jason RHODES, Dr. Garcia Other Provider Bhavin HILL, Dr. Garo Plasencia Other Provider [phone] Adeel RHODES, Dr. Matta Other Provider Kael RHODES, Dr. Chaves Other Provider Michel RHODES, Dr. Arnold Other Provider [phone] Lupe RHODES, Dr. Bautista Other Provider Unavailable Joseph RHODES, Dr. Dailey Other Provider Stefany RHODES, Dr. Garcia Other Provider [facility] INSTALLATION SUPERINTENDENT-C, Jordon Nieves Other Provider Sondra Desai Other Provider Arnie Schumacher Other Provider Akin RHODES, Dr. Juan J Dong Attending Provider Akin RHODES, Dr. Juan J Dong Other Provider Adeel RHODES, Dr. Matta Attending Provider Ishan RHODES, Dr. Olivier Devries Primary Care Physician Ishan RHODES, Dr. Olivier Devries Attending Physician Dr. Dewayne Vázquez DO Attending Physician Dr. Dweayne Vázquez DO Emergency Department Physic ivis Arnie Schumacher Attending Physician Dr. Carlos Darnell DO Attending Physician Dr. Carlos Darnell DO Emergency Department Physi consuelo Jason RHODES, Dr. Garcia Attending Physician de Henrry DO, Dr. Wyman Admitting Physician Salome vailable de Henrry DO, Dr. Wyman Attending Physician Salome vailable de Henrry DO, Dr. Wyman Nurse Practitioner Unav ailable Pita RHODES, Dr. Ramon Nurse Practitioner Unavailabl chelsy Matamoros MD, Dr. Jacobo Nurse Practitioner Unavailab molina Lamas MD, Dr. Nicholson Nurse Practitioner Unavailab molina Miranda MD, Dr. Drew Nurse Practitioner Kj RHODES, Dr. Abel Nurse Practitioner Miguel RHODES, Dr. Daily Nurse Practitioner Luis Enrique RHODES, Dr. Orozco Nurse Practitioner Unavaila kevin Gomez MD, Dr. Garcia Nurse Practitioner Bhavin HILL, Dr. Garo Plasencia Nurse Practitioner Adeel RHODES, Dr. Matta Nurse Practitioner Kael RHODES, Dr. Chaves Nurse Practitioner Michel RHODES, Dr. Arnold Nurse Practitioner Lupe RHODES, Dr. Bautista Nurse Practitioner Unavailab molina Ruiz MD, Dr. Dailey Nurse Practitioner [phone] Stefany RHODES, Dr. Garcia Nurse Practitioner Jordon Adkins Nurse Practitioner [phone] Sondra Desai Nurse Practitioner [phone] Arnie Schumacher Nurse Practitioner [phone] Akin RHODES, Dr. Juan J Dong Attending Physician Akin RHODES, Dr. Juan J Dong Nurse Practitioner Adeel RHODES, Dr. Matta Attending Physician [phone] Kael RHODES, Dr. Chaves Attending Physician [phone] Kael RHODES, Dr. Chaves Referring Provider Frank HILL, Dr. Martin Attending Physician Ishan RHODES, Dr. Olivier Devries Primary Care Physician Ishan RHODES, Dr. Olivier Devries Referring Provider Ishan RHODES, Dr. Olivier Devries Attending Physician Ishan RHODES, Dr. Olivier Devries Primary Care Physician Dr. Dewayne Vázquez DO Emergency Department Physic ivis Joseph RHODES, Dr. Dailey Attending Physician Ophelia Mayfield Attending Physician Ishan RHODES, Dr. Olivier Devries Primary Care Physician Ishan RHODES, Dr. Olivier Devries Referring Provider Arnie Schumacher Attending Physician Ishan RHODES, Dr. Olivier Devries Attending Physician Carie HILL, Dr. Gonzalez Attending Physician Carie HILL, Dr. Gonzalez Referring Provider Carie HILL, Dr. Gonzalez Emergency Department Physi consuelo Arnie Schumacher Referring Provider Jason RHODES, Dr. Garcia Attending Physician Gurpreet HILL, Dr. Buchanan Emergency Department Physic ivis de Henrry DO, Dr. Wyman Admitting Physician Salome vailable de Henrry DO, Dr. Wyman Attending Physician Salome vailable de Henrry DO, Dr. Wyman Nurse Practitioner Unav ailable Pita RHODES, Dr. Ramon Nurse Practitioner Unavailabl chelsy Matamoros MD, Dr. Jacobo Nurse Practitioner Unavailab molina Lamas MD, Dr. Nicholson Nurse Practitioner Unavailab molina Miranda MD, Dr. Drew Nurse Practitioner Kj RHODES, Dr. Abel Nurse Practitioner Miguel RHDOES, Dr. Daily Nurse Practitioner Luis Enrique RHODES, Dr. Orozco Nurse Practitioner Unavaila kevin Gomez MD, Dr. Garcia Nurse Practitioner Bhavin HILL, Dr. Garo Plasencia Nurse Practitioner Adeel RHODES, Dr. Matta Nurse Practitioner Kael RHODES, Dr. Chaves Nurse Practitioner Michel RHODES, Dr. Arnold Nurse Practitioner Lupe RHODES, Dr. Bautista Nurse Practitioner Unavailab molina Ruiz MD, Dr. Dailey Nurse Practitioner [phone] Stefany RHODES, Dr. Garcia Nurse Practitioner [phone] Nicky INSTALLATION SUPERINTENDENT-C, Jordon Nieves Nurse Practitioner Sondra Desai Nurse Practitioner Arnie Schumacher Nurse Practitioner Akin RHODES, Dr. Juan J Dong Attending Physician Akin RHODES, Dr. Juan J Dong Nurse Practitioner Adeel RHODES, Dr. Matta Attending Physician Kael RHODES, Dr. Chaves Attending Physician Kael RHODES, Dr. Chaves Referring Provider Frank HILL, Dr. Martin Attending Physician Joseph RHODES, Dr. Dailey Attending Physician Lebron MARCOS-COphelia Attending Physician Arnie Garcia Attending Unavailable Ishan, Olivier Chi Primary Care Unavailable Anastacio Scruggs Attending Unavailable Anastacio Scruggs Referring Unavailable Ishan, Olivier Chi Primary Care Unavailable SchwCarlos quintero Referring Unavailable Ishan, Olivier Chi Primary Care Unavailable SchwigerCarlos Attending Unavailable Ishan, Olivier Chi Primary Care Unavailable Ishan, Olivier Chi Attending Unavailable Ishan, Olivier Chi Referring Unavailable Ishan, Olivier Chi Primary Care Unavailable Ishan, Olivier Chi Attending Unavailable Ishan, Olivier Chi Referring Unavailable Ishan, Olivier Chi Primary Care Unavailable Ishan, Olivier Chi Attending Unavailable JoyceiterArnie Attending Unavailable Demiter, Arnie Referring Unavailable Ishan, Olivier Chi Primary Care Unavailable Ishan, Olivier Chi Primary Care Unavailable Arnie Garcia Attending Unavailable Ishan, Olivier Chi Referring Unavailable Garo Monzon Admitting Unavailable Amro, Ahmed Consulting Unavailable Ishan, Olivier Chi Primary Care Unavailable Juan J Gerardo Attending Unavailable Donnell aMtamoros Consulting Unavailable Karim, Adham Consulting Unavailable Mostafa, Viki Consulting Unavailable Kj, Page Consulting Unavailable Killian Rivera Consulting Unavailable Luis Enrique, Ernesto Consulting Unavailable Jason, Jose Consulting Unavailable Garo Delcid Consulting Unavailable James Denis Consulting Unavailable Anastacio Scruggs Consulting Unavailable Clayton Pearson Consulting UnavailLily Vaughan Consulting Unavailable Asim Ruiz Consulting Unavailable Gita Mccallatore Consulting Unavailable Jordon Saunders Consulting Unavailable Sondra Desai Consulting Unavail able Arnie Garcia Consulting Unavailable Garo Monzon Consulting Unavailable Juan J Gerardo Consulting Unavailable Amro, Ahmed Consulting Unavailable Ishan, Olivier Chi Primary Care Unavailable Garo Monzon Admitting Unavailable Garo Monzon Attending Unavailable Jabri, Ahmad Consulting Unavailable Karim, Adham Consulting Unavailable Mostafa, Viki Consulting Unavailable Kj, Page Consulting Unavailable Rivera, Killian Consulting Unavailable Luis Enrique, Ernesto Consulting Unavailable Jason, Cleveland Consulting Unavailable Garo Delcid Consulting Unavailable Belal, Farouk Consulting Unavailable Anastacio Scruggs Consulting Unavailable Nagajothi, Nagapradee Consulting Unavailabl e Azouz, Samer Consulting Unavailable Satti, Asim Consulting Unavailable [place], Jose Consulting Unavailable Jordon Saunders Consulting Unavailable Sriram CHAND, Sondra Ayers Consulting Unavail able Arnie Garcia Consulting Unavailable Garo Monzon Consulting Unavailable Juan J Gerardo Attending Unavailable Juan J Gerardo Consulting Unavailable Jose Gomez Attending Unavailable Joyceiter, Arnie Referring Unavailable Ishan, Olivier Chi Primary Care Unavailable Ishan, Olivier Chi Primary Care Unavailable Jose Gomez Attending Unavailable Lebron MARCOS, Ophelia Attending Unavailable Ishan, Olivier Chi Referring Unavailable Ishan, Olivier Chi Primary Care Unavailable Anastacio Srcuggs Attending Unavailable Ishan, Olivier Chi Primary Care Unavailable Ishan, Olivier Chi Referring Unavailable Ishan, Olivier Chi Primary Care Unavailable Ishan, Olivier Chi Attending Unavailable Ishan, Olivier Chi Referring Unavailable Ishan, Olivier Chi Attending Unavailable Ishan, Olivier Chi Primary Care Unavailable Shirleneal, Lbouk Attending Unavailable Amro, Ahmed Consulting Unavailable Ishan, Olivier Chi Primary Care Unavailable Juan J Gerardo Attending Unavailable Garo Monzon Admitting Unavailable Elliotbri, Ahmad Consulting Unavailable Karim, Adham Consulting Unavailable Mostafa, Viki Consulting Unavailable Kj, Page Consulting Unavailable Rivera, Killian Consulting Unavailable Luis Enrique, Ernesto Consulting Unavailable Jason, Jose Consulting Unavailable Garo Delcid Consulting Unavailable Belal, Farouk Consulting Unavailable Anastacio Scruggs Consulting Unavailable Alonsoajothi, Nagapradee Consulting Unavailabl e Azouz, Samer Consulting Unavailable Satti, Asim Consulting Unavailable [place], Jose Consulting Unavailable Jordon Saunders Consulting Unavailable Sriram CHAND, Sondra Ayers Consulting Unavail able Arnie Garcia Consulting Unavailable Garo Monzon Consulting Unavailable Ishan, Olivier Chi Primary Care Unavailable Demiter, Arnie Referring Unavailable DemiterIlirr Attending Unavailable Ishan, Olivier Chi Primary Care Unavailable Dewayne Vázquez Attending Unavailable Ishan, Olivier Chi Referring Unavailable DemiterIlirr Attending Unavailable Ishan, Olivier Chi Primary Care Unavailable Ishan, Olivier Chi Referring Unavailable DemIlir garciar Attending Unavailable Ishan, Olivier Chi Primary Care Unavailable Anastacio Scruggs Attending Unavailable Ishan, Olivier Chi Referring Unavailable Ishan, Olivier Chi Primary Care Unavailable Ishan, Olivier Chi Referring Unavailable Asim Ruiz Attending Unavailable Ishan, Olivier Chi Primary Care Unavailable Ishan, Olivier Chi Referring Unavailable Ishan, Olivier Chi Primary Care Unavailable Radha Diaz NP Attending Unavailable Anastacio Scruggs Unavailable Anastacio Scruggs Attending Unavailable Anastacio Scruggs Referring Unavailable Ishan, Olivier Chi Primary Care Unavailable Anastacio Scruggs Consulting Unavailable Anastacio Scruggs Referring Unavailable Ishan, Olivier Chi Primary Care Unavailable Mario Marie Attending Unavailable Demiter, Arnie Attending Unavailable Demiter, Arnie Referring Unavailable Ishan, Olivier Chi Primary Care Unavailable Allergies Allergy Classification Reported Allergen(s) Allergy Type Date of Onset Reaction(s) Facility (20 sources) Adhesive agent; Translations: [adhesive] Propensity to adverse reactions 1 [facility] (19 sources) predniSONE Drug Allergy 4 Rash [facility] (9 sources) Ciprofloxacin Drug Allergy 5 Nausea/Vom/Susana rrhea [facility] Comment on above: adverse reaction to Hx CMT (1 source) Ciprofloxacin Drug Allergy 5 [facility] Repository (1 source) predniSONE Drug Allergy 5 [facility] Repository Medications Current Medications Medication Drug Class(es) Dates Sig (Normalized) Sig (Original) amiodarone hydrochloride 200 mg oral tablet (16 sources) Antiarrhythmic Start: 07-21-2025 take 1 tablet by mouth once daily Start: 06-28-2025 End: 07-21-2025 take 1 tablet by mouth twice daily, then take 1 tablet by mouth once daily Amiodarone 200 mg Tablet Discontinued 200 mg PO DAILY 30 3 June 27, 2025 11:00pm July 21, 2025 1:13pm Take 1 tablet twice daily for 3 more days then take 1 tablet daily apixaban 5 mg oral tablet (10 sources) Factor Xa Inhibitor Start: 06-23-2025 take 1 tablet by mouth twice daily citalopram 10 mg oral tablet (20 sources) Serotonin Reuptake Inhibitor Start: 06-23-2025 take 1 tablet by mouth once daily Start: 04-20-2025 End: 05-18-2025 take 1 tablet by mouth once daily Citalopram 10 mg tablet Discontinued 10 mg PO DAILY April 19, 2025 11:00pm May 18, 2025 8:40am cyclobenzaprine hydrochlorid e 10 mg oral tablet (20 sources) Muscle Relaxant Start: 06-23-2025 take 1 tablet by mouth once daily as needed for pain Start: 05-29-2020 End: 04-20-2025 Cyclobenzaprine 10 mg tablet Discontinued 10 mg PO NEEDED as needed for Pain Or Fever September 13, 2022 1:53pm April 20, 2025 10:48am lisinopril 2.5 mg oral tablet (4 sources) Angiotensin Converting Enzyme Inhibitor Start: 08-10-2025 take 1 tablet by mouth once daily Start: 08-10-2025 take 1 tablet by gisela th once daily Lisinopril 2.5 mg tablet Active 2.5 mg PO daily August 10, 2025 3:16pm Complies with drug therapy Start: 08-07-2025 End: 08-10-2025 take 1 tablet by mouth once daily Lisinopril 2.5 mg tablet Discontinued 2.5 mg PO daily August 06, 2025 11:00pm August 10, 2025 2:16pm levothyroxine sodium 0.112 m g oral tablet (20 sources) l-Thyroxine Start: 04-20-2025 take 1 tablet by gisela th every other day Start: 11-28-2023 take 1 tablet by gisela th every other day Start: 11-28-2023 End: 04-20-2025 take 1 capsule by mouth every other day Levothyroxine 112 mcg capsule Discontinued 112 ug PO EVERY OTHER DAY November 28, 2023 12:00am April 20, 2025 10:49am qod Start: 11-28-2023 take 112 ug by mouth once shaye y Levothyroxine Active 112 MCG PO DAILY November 28, 2023 1:00am qod Start: 09-03-2019 End: 11-28-2023 take 1 tablet by mouth once daily Levothyroxine 125 mcg tablet Discontinued 125 ug PO DAILY September 03, 2019 12:00am November 28, 2023 1:39pm Start: 11-08-2013 End: 09-03-2019 Levothyroxine 112 MCG tablet Discontinued 125 ug PO DAILY November 08, 2013 12:00am September 03, 2019 2:01pm THYROID Start: 11-08-2013 End: 09-03-2019 take 125 ug by mouth once daily Levothyroxine Disconti nued 125 MCG PO DAILY November 08, 2013 1:00am September 03, 2019 3:01pm Start: 04-28-2011 take 1 tablet by gisela th once daily LEVOTHROID 112 MCG TABS One tablet by mouth daily, no tablet on Sunday LEVOTHYROXINE SODIUM [id number] Meli Clark Start: 04-28-2011 take 1 tablet by gisela th once daily LEVOTHROID 112 MCG TABS One tablet by mouth daily, no tablet on Sunday LEVOTHYROXINE SODIUM [id number] Meli Clark Completed/Discontinued Medications Medication Drug Class(es) Dates Sig (Normalized) Sig (Original) acetaminophen 325 mg / HYDROcodone bitartrate 5 mg oral tablet (20 sources) Opioid Agonist Start: 11-02-2017 End: 11-29-2017 Hydrocodone-Acetami nophen 1 EACH tablet Discontinued 1 NMA PO EVERY 4 HOURS NEEDED as needed for Pain 14 0 November 02, 2017 12:26pm November 29, 2017 4:48pm Personal history of urinary calculi Start: 11-02-2017 [...] as needed for Pain November 08, 2013 12:00am December 05, 2013 1:28pm Start: 11-08-2013 End: 12-05-2013 take 1 tablet [...] 81 mg PO DAILY@0800 November 08, 2013 12:00am November 28, 2023 1:39pm HEART Start: 04-28-2011 take 1 tablet by gisela th once daily ASPIRIN 81 MG TABS One tablet by mouth daily ASPIRIN [id number] [facility] Start: 04-28-2011 take 1 tablet by gisela th once daily ASPIRIN 81 MG TABS One tablet by mouth daily ASPIRIN [id number] [facility] Start: 04-28-2011 take 1 tablet by gisela th once daily ASPIRIN EC 81 MG TBEC One tablet by mouth daily ASPIRIN [id number] Fabiola Ochoa RN bifidobacterium infantis 4 mg oral capsule (15 sources) Start: 04-20-2025 End: 05-18-2025 take 10 capsules by mouth once daily Bifidobacterium Longum (Align (B.Longum)) 10 million cell capsule Discontinued [id number] NMA PO DAILY April 19, 2025 11:00pm May 18, 2025 8:40am bisacodyl 5 mg delayed release oral tablet (19 sources) Stimulant Laxative Start: 01-03-2024 End: 11-21-2024 take 1 tablet by mouth at bedtime Bisacodyl (Dulcolax (Bisacodyl)) 5 mg tablet,delayed release (DR/EC) Discontinued 5 mg PO AT BEDTIME January 03, 2024 12:00am November 21, 2024 11:39am cephalexin 500 mg oral capsule (20 sources) Cephalosporin Antibacterial Start: 07-09-2020 End: 09-08-2020 take 1 capsule by mouth every twelve hours Cephalexin 500 MG capsule Discontinued 500 mg PO EVERY 12 HOURS 14 0 July 08, 2020 11:00pm September 08, 2020 1:34pm ciprofloxacin 500 mg oral tablet (20 sources) Quinolone Antimicrobial Start: 11-02-2017 End: 11-29-2017 take 1 tablet by mouth twice daily Ciprofloxacin Hcl 500 MG tablet Discontinued 500 mg PO TWICE A DAY 6 0 November 02, 2017 12:00am November 29, 2017 4:48pm Personal history of urinary calculi 24 hr dilTIAZem hydrochloride 120 mg extended release oral capsule (20 sources) Calcium Channel Nirmal Start: 06-22-2025 End: 06-28-2025 take 1 capsule by mouth once daily, then take 1 capsule by mouth every twenty-four hours Diltiazem Hcl (Cartia Xt) 120 mg capsule,extended release 24hr Discontinued 120 mg PO daily 90 3 June 21, 2025 11:00pm June 28, 2025 10:27am Start: 04-28-2011 End: 06-08-2025 take 1 capsule by mouth once daily Diltiazem Hcl 120 mg capsule,extended release 24hr Discontinued 120 mg PO daily 90 July 24, 2024 9:26am June 08, 2025 4:13pm HEART Start: 04-28-2011 take 1 tablet by gisela th once daily CARDIZEM CD 120 MG [id number] One tablet by mouth daily DILTIAZEM HCL COATED BEADS [id number] Claude Good MD ergocalciferol 08922 unt oral tablet (6 sources) Provitamin D2 Compound Start: 04-28-2011 End: 08-14-2012 take 1 capsule by mouth every week VITAMIN D (ERGOCALCIFEROL) 21614 UNIT CAPS 1 capsule by mouth weekly ERGOCALCIFEROL [id number] Claude Good MD flecainide acetate 100 mg oral tablet (20 sources) Antiarrhythmic Start: 04-28-2011 End: 06-23-2025 take 1 tablet by mouth twice daily Flecainide 100 mg tablet Discontinued 100 mg PO TWICE A DAY 180 July 24, 2024 9:26am June 22, 2025 8:49am HEART gabapentin 100 mg oral capsule (10 sources) Anti-epileptic Agent Start: 06-23-2025 End: 06-23-2025 take 1 capsule by mouth at bedtime Gabapentin 100 mg capsule Discontinued 100 mg PO AT BEDTIME June 22, 2025 11:00pm June 23, 2025 1:43pm hydroCHLOROthiazide 25 mg oral tablet (3 sources) Thiazide Diuretic Start: 04-28-2011 take 1 tablet by mouth once daily as needed HYDROCHLOROTHIAZIDE 25 MG TABS One tablet by mouth daily as needed HYDROCHLOROTHIAZIDE [id number] Claude Good MD loratadine 10 mg oral capsule (15 sources) Start: 04-20-2025 End: 05-18-2025 take 1 capsule by mouth once daily Loratadine (Allergy Relief (Loratadine)) 10 mg capsule Discontinued 10 mg PO DAILY April 19, 2025 11:00pm May 18, 2025 8:40am Start: 04-20-2025 End: 05-18-2025 take 1 capsule by mouth once daily Loratadine (Allergy Relief (Loratadine)) 10 mg capsule Discontinued 10 mg PO DAILY April 20, 2025 12:00am May 18, 2025 9:40am metoprolol tartrate 50 mg oral tablet (20 sources) beta-Adrenergic Nirmal Start: 06-28-2025 End: 07-29-2025 Metoprolol Tartrate 50 mg tablet Discontinued 75 mg PO TWICE A DAY 90 30 0 June 27, 2025 11:00pm July 29, 2025 12:45pm Start: 06-08-2025 End: 06-28-2025 take 1 tablet by mouth every twelve hours Metoprolol Tartrate 50 mg tablet Discontinued 50 mg PO Q12H June 22, 2025 11:00pm June 28, 2025 10:28am naproxen 500 mg oral tablet (20 sources) Nonsteroidal Anti-inflammatory Drug Start: 11-08-2013 End: 12-05-2013 take 1 tablet by mouth twice daily as needed for pain Naproxen 500 MG tablet Discontinued 500 mg PO TWICE DAILY NEEDED as needed for Pain November 08, 2013 12:00am December 05, 2013 1:28pm nitroglycerin 0.4 mg sublingual tablet (3 sources) Nitrate Vasodilator Start: 04-28-2011 NITROSTAT 0.4 MG SUBL 1 tablet under tongue every 5 min up to 3 X NITROGLYCERIN [id number] Meli Clark ondansetron 4 mg disintegrating oral tablet (20 sources) Serotonin-3 Receptor Antagonist Start: 07-09-2020 End: 09-08-2020 take 1 tablet by mouth every eight hours as needed for nausea Ondansetron 4 MG tablet Discontinued 4 mg PO EVERY 8 HOURS NEEDED as needed for Nausea July 08, 2020 11:00pm September 08, 2020 1:35pm 24 hr PARoxetine hydrochloride 25 mg extended release oral tablet (20 sources) Serotonin Reuptake Inhibitor Start: 09-03-2019 End: 09-07-2021 Paroxetine Hcl (Paxil Cr) 25 mg tablet extended release 24 hr Discontinued 40 mg PO DAILY September 03, 2019 12:00am September 07, 2021 2:01pm Start: 06-01-2016 take 1 tablet by gisela th once daily PAXIL 10 MG TABS One tablet by mouth daily PAROXETINE HCL [id number] Sondra Bhatia PA-C Start: 06-01-2016 take 1 tablet by gisela th once daily PAXIL 10 MG TABS One tablet by mouth daily PAROXETINE HCL [id number] Sondra Bhatia PA-C Start: 12-05-2013 End: 09-03-2019 Paroxetine Hcl 20 MG tablet Discontinued 25 mg PO AT BEDTIME December 05, 2013 12:00am September 03, 2019 2:02pm MOOD Start: 12-05-2013 End: 09-03-2019 take 25 mg by mouth at bedtime Paroxetine Hcl Disconti nued 25 MG PO AT BEDTIME December 05, 2013 1:00am September 03, 2019 3:02pm Romosozumab-Aqqg (17 sources) Start: 07-07-2024 End: 12-25-2024 Romosozumab-Aqqg (Evenity) 2 10mg/2.34mL ( 105mg/1.17mLx2) syringe Discontinued 210 mg SC EVERY MONTH July 06, 2024 11:00pm December 25, 2024 11:28am unsure of dose Start: 07-07-2024 End: 12-25-2024 Romosozumab-Aqqg (Evenity) 2 10mg/2.34mL ( 105mg/1.17mLx2) syringe Discontinued 210 mg SC EVERY MONTH July 07, 2024 12:00am December 25, 2024 12:28pm unsure of dose sulfamethoxazole 800 mg / trimethoprim 160 mg oral tablet (20 sources) Dihydrofolate Reductase Inhibitor Antibacterial, Sulfonamide Antimicrobial Start: 11-08-2013 End: 12-05-2013 Sulfamethoxazole-Trimethopri m 1 TABLET tablet Discontinued 1 {tbl} PO TWICE A DAY 6 November 08, 2013 12:00am December 05, 2013 1:28pm Start: 11-08-2013 End: 12-05-2013 take 1 tablet by mouth twice daily Sulfamethoxazole-Trimethoprim Discontinu ed 1 TABLET PO TWICE A DAY November 08, 2013 1:00am December 05, 2013 2:28pm vitamin B 12 (3 sources) Vitamin B12 Start: 04-01-2014 VITAMIN B-12 1 000 MCG/15ML LIQD injections, as directed CYANOCOBALAMIN [id number] Claude Good MD Start: 04-01-2014 VITAMIN B-12 1 000 MCG/15ML LIQD injections, as directed CYANOCOBALAMIN [id number] Claude Good MD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 [place], [address] RDW SD 46.5 fl High 35.1-43.9 [facility] Comment on above: Performed By: #### L 100.0100, L500.2500 ####[facility] [address] [place], [address] WBC (Bld) [#/Vol] 4.9 10*3/uL Normal 4.4-11.0 [facility] Comment on above: Performed By: #### L 100.0100, L500.2500 ####[facility] [address] [place], [address] Carbon dioxide, total [Moles /volume] in Central venous bloodOrdered By: Juan J Gerardo on 06-27-2025 CO2 [Moles/Vol] 28.1 mmol/L 21.0-32.0 [facility] Chloride assayOrdered By: Nicole Gerardo on 06-27-2025 Chloride [Moles/Vol] 105 mmol/L 98-108 [facility] Eosinophil percentageOrdered By: Juan J Gerardo on 06-27-2025 Eosinophils/100 WBC (Bld) 3.7 % 0-5 [facility] Erythrocyte distribution wid th ratioOrdered By: Juan J Gerardo on 06-27-2025 Erythrocyte distribution width (RBC) [Ratio] 13.0 % 11.6-14.6 [facility] Erythrocyte distribution wid th standard deviationOrdered By: Juan J Gerardo on 06-27-2025 Erythrocyte distribution width (RBC) [Ratio] 46.5 fl High 35.1-43.9 [facility] Glomerular filtration rate ( GFR) estimation/1.73 sq m using serum, plasma, or whole bOrdered By: Juan J Gerardo on 06-27-2025 GFR/1.73 sq M.predicted among non-blacks MDRD (S/P/Bld) [Vol rate/Area] 91 mL/min/{1.73_m2} >60 [facility] Comment on above: mL/min/1.73m2 CKD-EP I Creatinine Equation (2020) Hematocrit Auto (Bld) [Volum e fraction]Ordered By: Juan J Gerardo on 06-27-2025 Hematocrit (Bld) [Volume fraction] 39.7 % 37-47 [facility] Hemoglobin measurementOrdere d By: Juan J Gerardo on 06-27-2025 Hemoglobin (Bld) [Mass/Vol] 13.3 g/dL 12.0-15.0 [facility] Immature granulocytes/100 WB C Auto (Bld)Ordered By: Juan J Gerardo on 06-27-2025 Immature granulocytes/100 WBC (Bld) 0.200 % 0.0-0.9 [facility] Comment on above: IG% - Immature Granu locytes (promyelocytes, myelocytes and metamyelocytes) > 1% indicates that a LEFT SHIFT is Present. MCV (mean corpuscular volume ) determinationOrdered By: Juan J Gerardo on 06-27-2025 MCV (RBC) [Entitic vol] 98.3 fL 81-99 [facility] Mean corpuscular hemoglobin (MCH) determinationOrdered By: Juan J Gerardo 06-27-2025 MCH (RBC) [Entitic mass] 32.9 pg High 27.0-32.0 [facility] Mean corpuscular hemoglobin concentration (MCHC) determinationOrdered By: Juan J Gerardo on 06-27-2025 MCHC (RBC) [Mass/Vol] 33.5 g/dL 32-36 [facility] Mean platelet volume determi nationOrdered By: Juan J Gerardo on 06-27-2025 Platelet mean volume (Bld) [Entitic vol] 10.5 fL 6.2-12.0 [facility] Monocyte percentageOrdered B y: Juan J Gerardo on 06-27-2025 Monocytes/100 WBC (Bld) 7.8 % 0-10 [facility] Neutrophil percentageOrdered By: Juan J Gerardo on 06-27-2025 Neutrophils/100 WBC (Bld) 56.1 % 47-70 [facility] Nucleated red blood cell per centageOrdered By: Juan J Gerardo on 06-27-2025 Nucleated RBC/100 WBC (Bld) [Ratio] 0 % 0-5 [facility] Platelet countOrdered By: Nicole Gerardo on 06-27-2025 Platelets (Bld) [#/Vol] 264 10*3/uL 150-450 [facility] Potassium measurement (mass/ volume)Ordered By: Juan J Gerardo on 06-27-2025 Potassium (Unsp spec) [Mass/Vol] 4.8 mmol/L 3.3-5.1 [facility] RBC Auto (Bld) [#/Vol]Ordere d By: Juan J Gerardo on 06-27-2025 RBC (Bld) [#/Vol] 4.04 10*6/uL Low 4.2-5.4 [facility] Serum creatinine measurement (mass/volume)Ordered By: Juan J Gerardo on 06-27-2025 Creatinine [Mass/Vol] 0.65 mg/dL Low 0.70-1.20 [facility] Serum glucose measurement (m ass/volume)Ordered By: Juan J Gerardo on 06-27-2025 Glucose [Mass/Vol] 104 mg/dL High 70-99 [facility] Serum or plasma calcium hesham urement (mass/volume)Ordered By: Juan J Gerardo on 06-27-2025 Calcium [Mass/Vol] 9.7 mg/dL 7.6-11.0 [facility] Serum or plasma urea nitroge n measurement (mass/volume)Ordered By: Juan J Gerardo on 06-27-2025 Urea nitrogen [Mass/Vol] 17 mg/dL 4-19 [facility] Sodium levelOrdered By: Hood Gerardo on 06-27-2025 Sodium [Moles/Vol] 141 mmol/L 133-145 [facility] White blood cell (WBC) count Ordered By: Juan J Gerardo on 06-27-2025 WBC (Bld) [#/Vol] 4.9 10*3/uL 4.4-11.0 [facility] Basic Metabolic Profile (BMP )on 06-26-2025 BUN Normal 4-19 [facility] Comment on above: Result Comment: Canc elled via OM: MD Ordered Performed By: #### L 500.2500, L100.0100 ####[facility] [address] [place], [address] BUN/CRE Normal 10-20 [facility] Comment on above: Result Comment: Canc elled via OM: MD Ordered Performed By: #### L 500.2500, L100.0100 ####[facility] [address] [place], [address] Calcium Normal 7.6-11.0 [facility] Comment on above: Result Comment: Canc elled via OM: MD Ordered Performed By: #### L 500.2500, L100.0100 ####[facility] [address] [place], [address] CL Normal 98-108 [facility] Comment on above: Result Comment: Canc elled via OM: MD Ordered Performed By: #### L 500.2500, L100.0100 ####[facility] [address] [place], [address] CO2 Normal 21.0-32.0 [facility] Comment on above: Result Comment: Canc elled via OM: MD Ordered Performed By: #### L 500.2500, L100.0100 ####[facility] [address] [place], [address] CREAT,SERUM Normal 0.70-1.20 [facility] Comment on above: Result Comment: Canc elled via OM: MD Ordered Performed By: #### L 500.2500, L100.0100 ####[facility] [address] [place], [address] eGFR Normal >60 [facility] Comment on above: Result Comment: Canc elled via OM: MD Ordered Performed By: #### L 500.2500, L100.0100 ####[facility] [address] [place], [address] GAP Normal 5-15 [facility] Comment on above: Result Comment: Canc elled via OM: MD Ordered Performed By: #### L 500.2500, L100.0100 ####[facility] [address] [place], [address] GLU Normal 70-99 [facility] Comment on above: Result Comment: Canc elled via OM: MD Ordered Performed By: #### L 500.2500, L100.0100 ####[facility] [address] [place], [address] Potassium Normal 3.3-5.1 [facility] Comment on above: Result Comment: Canc elled via OM: MD Ordered Performed By: #### L 500.2500, L100.0100 ####[facility] [address] [place], [address] Basic Metabolic Profile (BMP) Normal 133-145 [facility] Comment on above: Result Comment: Canc elled via OM: MD Ordered Performed By: #### L 500.2500, L100.0100 ####[facility] [address] [place], [address] CBC W/Diff, Automatedon 08-2 Absolute Neut Normal 2.0-7.7 [facility] Comment on above: Result Comment: Canc elled via OM: MD Ordered Performed By: #### L 500.2500, L100.0100 ####[facility] [address] [place], [address] HCT Normal 37-47 [facility] Comment on above: Result Comment: Canc elled via OM: MD Ordered Performed By: #### L 500.2500, L100.0100 ####[facility] [address] [place], [address] HGB Normal 12.0-15.0 [facility] Comment on above: Result Comment: Canc elled via OM: MD Ordered Performed By: #### L 500.2500, L100.0100 ####[facility] [address] [place], [address] MCH Normal 27.0-32.0 [facility] Comment on above: Result Comment: Canc elled via OM: MD Ordered Performed By: #### L 500.2500, L100.0100 ####[facility] [address] [place], [address] MCHC Normal 32-36 [facility] Comment on above: Result Comment: Canc elled via OM: MD Ordered Performed By: #### L 500.2500, L100.0100 ####[facility] [address] [place], [address] MCV Normal 81-99 [facility] Comment on above: Result Comment: Canc elled via OM: MD Ordered Performed By: #### L 500.2500, L100.0100 ####[facility] [address] [place], [address] NEUT% Normal 47-70 [facility] Comment on above: Result Comment: Canc elled via OM: MD Ordered Performed By: #### L 500.2500, L100.0100 ####[facility] [address] [place], [address] PLT Normal 150-450 [facility] Comment on above: Result Comment: Canc elled via OM: MD Ordered Performed By: #### L 500.2500, L100.0100 ####[facility] [address] [place], [address] RBC Normal 4.2-5.4 [facility] Comment on above: Result Comment: Canc elled via OM: MD Ordered Performed By: #### L 500.2500, L100.0100 ####[facility] [address] [place], [address] RDW CV Normal 11.6-14.6 [facility] Comment on above: Result Comment: Canc elled via OM: MD Ordered Performed By: #### L 500.2500, L100.0100 ####[facility] [address] [place], [address] RDW SD Normal 35.1-43.9 [facility] Comment on above: Result Comment: Canc elled via OM: MD Ordered Performed By: #### L 500.2500, L100.0100 ####[facility] [address] [place], [address] WBC Normal 4.4-11.0 [facility] Comment on above: Result Comment: Canc elled via OM: MD Ordered Performed By: #### L 500.2500, L100.0100 ####[facility] [address] [place], [address] 12 Lead EKGon 06-25-2025 12 Lead EKG Normal [facility] Basic Metabolic Profile (BMP )on 06-25-2025 BUN/CRE 17.4 RATIO Normal 10-20 [facility] Comment on above: Performed By: #### L 500.2500, L501.2300 ####[facility] [address] [place], [address] Calcium [Mass/Vol] 8.7 mg/dL Normal 7.6-11.0 [facility] Comment on above: Performed By: #### L 500.2500, L501.2300 ####[facility] [address] [place], [address] Chloride [Moles/Vol] 108 mmol/L Normal 98-108 [facility] Comment on above: Performed By: #### L 500.2500, L501.2300 ####[facility] [address] [place], [address] CO2 [Moles/Vol] 23.1 mmol/L Normal 21.0-32.0 [facility] Comment on above: Performed By: #### L 500.2500, L501.2300 ####[facility] [address] [place], [address] Creatinine [Mass/Vol] 0.54 mg/dL Low 0.70-1.20 [facility] Comment on above: Performed By: #### L 500.2500, L501.2300 ####[facility] [address] [place], [address] ECRCL 57.57 ml/min Normal 50-250 [facility] Comment on above: Performed By: #### L 500.2500, L501.2300 ####[facility] [address] [place], [address] GAP 8 Normal 5-15 [facility] Comment on above: Performed By: #### L 500.2500, L501.2300 ####[facility] [address] [place], [address] GFR/1.73 sq M.predicted among non-blacks MDRD (S/P/Bld) [Vol rate/Area] 95 mL/min/{1.73_m2} Normal >60 [facility] Comment on above: Result Comment: mL/m in/1.73m2 CKD-EPI Creatinine Equation (2020) Performed By: #### L 500.2500, L501.2300 ####[facility] [address] [place], [address] Glucose [Mass/Vol] 110 mg/dL High 70-99 [facility] Comment on above: Performed By: #### L 500.2500, L501.2300 ####[facility] [address] [place], [address] Potassium [Moles/Vol] 4.1 mmol/L Normal 3.3-5.1 [facility] Comment on above: Performed By: #### L 500.2500, L501.2300 ####[facility] [address] [place], [address] Sodium [Moles/Vol] 139 mmol/L Normal 133-145 [facility] Comment on above: Performed By: #### L 500.2500, L501.2300 ####[facility] [address] [place], [address] Urea nitrogen [Mass/Vol] 9 mg/dL Normal 4-19 [facility] Comment on above: Performed By: #### L 500.2500, L501.2300 ####[facility] [address] [place], [address] CBC W/Diff, Automatedon 08-2 -2024 Absolute Lymph 1.13 X10 3/uL Normal 0.83-4.51 [facility] Comment on above: Performed By: #### L 100.0100 ####[facility] [address] [place], [address] Absolute Neut 3.6 X10 3/uL Normal 2.0-7.7 [facility] Comment on above: Performed By: #### L 100.0100 ####[facility] [address] [place], [address] Basophils/100 WBC (Bld) 0.2 % Normal 0-1 [facility] Comment on above: Performed By: #### L 100.0100 ####[facility] [address] [place], [address] Eosinophils/100 WBC (Bld) 2.2 % Normal 0-5 [facility] Comment on above: Performed By: #### L 100.0100 ####[facility] [address] [place], [address] Erythrocyte distribution width (RBC) [Ratio] 13.0 % Normal 11.6-14.6 [facility] Comment on above: Performed By: #### L 100.0100 ####[facility] [address] [place], [address] Hematocrit (Bld) [Volume fraction] 35.7 % Low 37-47 [facility] Comment on above: Performed By: #### L 100.0100 ####[facility] [address] [place], [address] Hemoglobin (Bld) [Mass/Vol] 12.3 g/dL Normal 12.0-15.0 [facility] Comment on above: Performed By: #### L 100.0100 ####[facility] [address] [place], [address] IG% 0.400 Normal 0.0-0.9 [facility] Comment on above: Result Comment: IG% - Immature Granulocytes (promyelocytes, myelocytes andmetamyelocytes) > 1% indicates that a LEFT SHIFT is Present. Performed By: #### L 100.0100 ####[facility] [address] [place], [address] Lymphocytes/100 WBC (Bld) 20.8 % Normal 19-41 [facility] Comment on above: Performed By: #### L 100.0100 ####[facility] [address] [place], [address] MCH (RBC) [Entitic mass] 33.7 pg High 27.0-32.0 [facility] Comment on above: Performed By: #### L 100.0100 ####[facility] [address] [place], [address] MCHC (RBC) [Mass/Vol] 34.5 g/dL Normal 32-36 [facility] Comment on above: Performed By: #### L 100.0100 ####[facility] [address] [place], [address] MCV (RBC) [Entitic vol] 97.8 fL Normal 81-99 [facility] Comment on above: Performed By: #### L 100.0100 ####[facility] [address] [place], [address] Monocytes/100 WBC (Bld) 10.3 % High 0-10 [facility] Comment on above: Performed By: #### L 100.0100 ####[facility] [address] [place], [address] Neutrophils/100 WBC (Bld) 66.1 % Normal 47-70 [facility] Comment on above: Performed By: #### L 100.0100 ####[facility] [address] [place], [address] Nucleated RBC (Bld) [#/Vol] 0 10*3/uL Normal 0-5 [facility] Comment on above: Performed By: #### L 100.0100 ####[facility] [address] [place], [address] Platelet mean volume (Bld) [Entitic vol] 10.6 fL Normal 6.2-12.0 [facility] Comment on above: Performed By: #### L 100.0100 ####[facility] [address] [place], [address] Platelets (Bld) [#/Vol] 217 10*3/uL Normal 150-450 [facility] Comment on above: Performed By: #### L 100.0100 ####[facility] [address] [place], [address] RBC (Bld) [#/Vol] 3.65 10*6/uL Low 4.2-5.4 [facility] Comment on above: Performed By: #### L 100.0100 ####[facility] [address] [place], [address] RDW SD 46.7 fl High 35.1-43.9 [facility] Comment on above: Performed By: #### L 100.0100 ####[facility] [address] [place], [address] WBC (Bld) [#/Vol] 5.4 10*3/uL Normal 4.4-11.0 [facility] Comment on above: Performed By: #### L 100.0100 ####[facility] [address] [place], [address] Phosphoruson 06-25-2025 Phosphate [Mass/Vol] 2.9 mg/dL Normal 2.7-4.5 [facility] Comment on above: Performed By: #### L 500.2500, L501.2300 ####[facility] [address] [place], [address] 12 Lead EKGon 06-24-2025 12 Lead EKG Normal [facility] Bilirubin, totalOrdered By: Garo Sales on 06-24-2025 Bilirubin [Mass/Vol] 1.21 mg/dL 0.00-1.30 [facility] CBC W/Diff, Automatedon 05-30 Absolute Lymph 0.82 X10 3/uL Low 0.83-4.51 [facility] Comment on above: Performed By: #### L 100.0100, L501.9520, L500.4050, L501.2300 ####[facility] [address] [place], [address] Absolute Neut 5.7 X10 3/uL Normal 2.0-7.7 [facility] Comment on above: Performed By: #### L 100.0100, L501.9520, L500.4050, L501.2300 ####[facility] [address] [place], [address] Basophils/100 WBC (Bld) 0.3 % Normal 0-1 [facility] Comment on above: Performed By: #### L 100.0100, L501.9520, L500.4050, L501.2300 ####[facility] [address] [place], [address] Eosinophils/100 WBC (Bld) 1.4 % Normal 0-5 [facility] Comment on above: Performed By: #### L 100.0100, L501.9520, L500.4050, L501.2300 ####[facility] [address] [place], [address] Erythrocyte distribution width (RBC) [Ratio] 12.9 % Normal 11.6-14.6 [facility] Comment on above: Performed By: #### L 100.0100, L501.9520, L500.4050, L501.2300 ####[facility] [address] [place], [address] Hematocrit (Bld) [Volume fraction] 39.2 % Normal 37-47 [facility] Comment on above: Performed By: #### L 100.0100, L501.9520, L500.4050, L501.2300 ####[facility] [address] [place], [address] Hemoglobin (Bld) [Mass/Vol] 13.3 g/dL Normal 12.0-15.0 [facility] Comment on above: Performed By: #### L 100.0100, L501.9520, L500.4050, L501.2300 ####[facility] [address] [place], [address] IG% 0.400 Normal 0.0-0.9 [facility] Comment on above: Result Comment: IG% - Immature Granulocytes (promyelocytes, myelocytes andmetamyelocytes) > 1% indicates that a LEFT SHIFT is Present. Performed By: #### L 100.0100, L501.9520, L500.4050, L501.2300 ####[facility] [address] [place], [address] Lymphocytes/100 WBC (Bld) 11.2 % Low 19-41 [facility] Comment on above: Performed By: #### L 100.0100, L501.9520, L500.4050, L501.2300 ####[facility] [address] [place], [address] MCH (RBC) [Entitic mass] 32.9 pg High 27.0-32.0 [facility] Comment on above: Performed By: #### L 100.0100, L501.9520, L500.4050, L501.2300 ####[facility] [address] [place], [address] MCHC (RBC) [Mass/Vol] 33.9 g/dL Normal 32-36 [facility] Comment on above: Performed By: #### L 100.0100, L501.9520, L500.4050, L501.2300 ####[facility] [address] [place], [address] MCV (RBC) [Entitic vol] 97.0 fL Normal 81-99 [facility] Comment on above: Performed By: #### L 100.0100, L501.9520, L500.4050, L501.2300 ####[facility] [address] [place], [address] Monocytes/100 WBC (Bld) 8.7 % Normal 0-10 [facility] Comment on above: Performed By: #### L 100.0100, L501.9520, L500.4050, L501.2300 ####[facility] [address] [place], [address] Neutrophils/100 WBC (Bld) 78.0 % High 47-70 [facility] Comment on above: Performed By: #### L 100.0100, L501.9520, L500.4050, L501.2300 ####[facility] [address] [place], [address] Nucleated RBC (Bld) [#/Vol] 0 10*3/uL Normal 0-5 [facility] Comment on above: Performed By: #### L 100.0100, L501.9520, L500.4050, L501.2300 ####[facility] [address] [place], [address] Platelet mean volume (Bld) [Entitic vol] 10.5 fL Normal 6.2-12.0 [facility] Comment on above: Performed By: #### L 100.0100, L501.9520, L500.4050, L501.2300 ####[facility] [address] [place], [address] Platelets (Bld) [#/Vol] 205 10*3/uL Normal 150-450 [facility] Comment on above: Performed By: #### L 100.0100, L501.9520, L500.4050, L501.2300 ####[facility] [address] [place], [address] RBC (Bld) [#/Vol] 4.04 10*6/uL Low 4.2-5.4 [facility] Comment on above: Performed By: #### L 100.0100, L501.9520, L500.4050, L501.2300 ####[facility] [address] [place], [address] RDW SD 46.2 fl High 35.1-43.9 [facility] Comment on above: Performed By: #### L 100.0100, L501.9520, L500.4050, L501.2300 ####[facility] [address] [place], [address] WBC (Bld) [#/Vol] 7.3 10*3/uL Normal 4.4-11.0 [facility] Comment on above: Performed By: #### L 100.0100, L501.9520, L500.4050, L501.2300 ####[facility] [address] [place], [address] Comprehensive Metabolic Prof [facility] 06-24-2025 Albumin [Mass/Vol] 3.5 g/dL Normal 3.4-4.8 [facility] Comment on above: Performed By: #### L 100.0100, L501.9520, L500.4050, L501.2300 ####[facility] [address] [place], [address] Albumin/Globulin [Mass ratio] 1.3 {ratio} Normal 0.9-2.4 [facility] Comment on above: Performed By: #### L 100.0100, L501.9520, L500.4050, L501.2300 ####[facility] [address] [place], [address] ALK PHOS 96 U/L Normal 35-104 [facility] Comment on above: Performed By: #### L 100.0100, L501.9520, L500.4050, L501.2300 ####[facility] [address] [place], [address] ALT [Catalytic activity/Vol] 18 U/L Normal <=34 [facility] Comment on above: Performed By: #### L 100.0100, L501.9520, L500.4050, L501.2300 ####[facility] [address] [place], [address] AST [Catalytic activity/Vol] 23 U/L Normal <=31 [facility] Comment on above: Performed By: #### L 100.0100, L501.9520, L500.4050, L501.2300 ####[facility] [address] [place], [address] Bilirubin [Mass/Vol] 1.21 mg/dL Normal 0.00-1.30 [facility] Comment on above: Performed By: #### L 100.0100, L501.9520, L500.4050, L501.2300 ####[facility] [address] [place], [address] BUN/CRE 16.6 RATIO Normal 10-20 [facility] Comment on above: Performed By: #### L 100.0100, L501.9520, L500.4050, L501.2300 ####[facility] [address] [place], [address] Calcium [Mass/Vol] 9.0 mg/dL Normal 7.6-11.0 [facility] Comment on above: Performed By: #### L 100.0100, L501.9520, L500.4050, L501.2300 ####[facility] [address] [place], [address] Chloride [Moles/Vol] 103 mmol/L Normal 98-108 [facility] Comment on above: Performed By: #### L 100.0100, L501.9520, L500.4050, L501.2300 ####[facility] [address] [place], [address] CO2 [Moles/Vol] 23.8 mmol/L Normal 21.0-32.0 [facility] Comment on above: Performed By: #### L 100.0100, L501.9520, L500.4050, L501.2300 ####[facility] [address] [place], [address] Creatinine [Mass/Vol] 0.58 mg/dL Low 0.70-1.20 [facility] Comment on above: Performed By: #### L 100.0100, L501.9520, L500.4050, L501.2300 ####[facility] [address] [place], [address] ECRCL 57.88 ml/min Normal 50-250 [facility] Comment on above: Performed By: #### L 100.0100, L501.9520, L500.4050, L501.2300 ####[facility] [address] [place], [address] GAP 11 Normal 5-15 [facility] Comment on above: Performed By: #### L 100.0100, L501.9520, L500.4050, L501.2300 ####[facility] [address] [place], [address] GFR/1.73 sq M.predicted among non-blacks MDRD (S/P/Bld) [Vol rate/Area] 94 mL/min/{1.73_m2} Normal >60 [facility] Comment on above: Result Comment: mL/m in/1.73m2 CKD-EPI Creatinine Equation (2020) Performed By: #### L 100.0100, L501.9520, L500.4050, L501.2300 ####[facility] [address] [place], [address] Globulin (S) [Mass/Vol] 2.7 g/dL Normal 2.2-4.2 [facility] Comment on above: Performed By: #### L 100.0100, L501.9520, L500.4050, L501.2300 ####[facility] [address] [place], [address] Glucose [Mass/Vol] 104 mg/dL High 70-99 [facility] Comment on above: Performed By: #### L 100.0100, L501.9520, L500.4050, L501.2300 ####[facility] [address] [place], [address] Potassium [Moles/Vol] 3.9 mmol/L Normal 3.3-5.1 [facility] Comment on above: Performed By: #### L 100.0100, L501.9520, L500.4050, L501.2300 ####[facility] [address] [place], [address] Sodium [Moles/Vol] 138 mmol/L Normal 133-145 [facility] Comment on above: Performed By: #### L 100.0100, L501.9520, L500.4050, L501.2300 ####[facility] [address] [place], [address] T PROT 6.2 g/dL Normal 5.9-8.4 [facility] Comment on above: Performed By: #### L 100.0100, L501.9520, L500.4050, L501.2300 ####[facility] [address] [place], [address] Urea nitrogen [Mass/Vol] 10 mg/dL Normal 4-19 [facility] Comment on above: Performed By: #### L 100.0100, L501.9520, L500.4050, L501.2300 ####[facility] [address] [place], [address] Consultation - Cardiologyon 06-24-2025 Consultation - Cardiology Normal [facility] Electrocardiogram reportOrde red By: James Denis on 06-24-2025 EKG study [facility] [address] [place] [address] 12 Lead EKG 06/24/25 0125 MR#: [id number] Acct: [id number] Name: DONNA CEJA Rep #:[id number] : 1950 74 From: James Denis MD Attending Dr: Dr. Juan J Gerardo MD Status: ADM MAXIMILIANO Ordering Dr: Garo Monzon DO Date: 06/24/25 Location: [facility] Sex: F C Admitted: 06/23/25 Test Reason : A-FIB -- NSR Blood Pressure : */* mmHG Vent. Rate : 113 BPM Atrial Rate : 226 BPM P-R Int : * ms QRS Dur : 122 ms QT Int : 436 ms P-R-T Axes : * -60 166 degrees QTcB Int : 598 ms Critical Test Result: Long QTc Atrial flutter with 2:1 A-V conduction Left axis deviation Minimal voltage criteria for LVH, may be normal variant ( [place] product ) Septal infarct , age undetermined Inferior infarct , age undetermined ST & T wave abnormality, consider lateral ischemia Abnormal ECG When compared with ECG of 23-Jun-2025 16:49, MANUAL COMPARISON REQUIRED DATA IS UNCONFIRMED Confirmed by JAMES DENIS ([id number]), editor house organ GRISELDA HUERTA ([id number]) on 06/24/2025 1:58:30 PM Referred By: Confirmed By: JAMES DENIS 06/24/25 1358 Date _ James Denis MD CC: Dr. Garo Monzon DO; Dr. Juan J Gerardo MD; Dr. Olivier Olmstead MD~ Signed [facility] Work Phone: EKG study [facility] [address] [place] [address] 12 Lead EKG 06/23/25 1400 MR#: [id number] Acct: [id number] Name: DONNA CEJA Rep #:[id number] : 1950 74 From: James Denis MD Attending Dr: Dr. Juan J Gerardo MD Status: ADM MAXIMILIANO Ordering Dr: Dewayne Vázquez DO Date: Location: [facility] Sex: F C Admitted: 06/23/25 Test Reason : C/P Blood Pressure : */* mmHG Vent. Rate : 139 BPM Atrial Rate : 223 BPM P-R Int : * ms QRS Dur : 114 ms QT Int : 282 ms P-R-T Axes : * -56 123 degrees QTcB Int : 429 ms Atrial flutter with variable A-V block Left axis deviation Minimal voltage criteria for LVH, may be normal variant ( [place] product ) Septal infarct , age undetermined Inferior infarct , age undetermined ST & T wave abnormality, consider lateral ischemia Abnormal ECG Confirmed by JAMES DENIS ([id number]), editor house organ GRISELDA HUERTA ([id number]) on 06/24/2025 1:53:10 PM Referred By: ED Confirmed By: JAMES DENIS 06/24/25 1353 Date _ James Denis MD CC: Dr. Juan J Gerardo MD; Dr. Olivier Olmstead MD; Dr. Dewayne Vázquez DO ~ Signed [facility] Work Phone: EKG study [facility] [address] [place] [address] 12 Lead EKG 06/23/25 1649 MR#: [id number] Acct: [id number] Name: DONNA CEJA Rep #:[id number] : 1950 74 From: James Denis MD Attending Dr: Dr. Juan J Gerardo MD Status: ADM MAXIMILIANO Ordering Dr: Dewayne Vázquez DO Date: Location: [facility] Sex: F C Admitted: 06/23/25 Test Reason : REPEAT Blood Pressure : */* mmHG Vent. Rate : 110 BPM Atrial Rate : 220 BPM P-R Int : * ms QRS Dur : 110 ms QT Int : 442 ms P-R-T Axes : 35 -52 153 degrees QTcB Int : 598 ms Critical Test Result: Long QTc Atrial flutter with 2:1 A-V conduction Left axis deviation Minimal voltage criteria for LVH, may be normal variant ( [place] product ) Septal infarct , age undetermined Inferior infarct , age undetermined ST & T wave abnormality, consider lateral ischemia Abnormal ECG Confirmed by JAMES DENIS ([id number]), editor house organ GRISELDA HUERTA ([id number]) on 06/24/2025 1:52:47 PM Referred By: Confirmed By: JAMES DENIS 06/24/25 1352 Date _ James Denis MD CC: Dr. Juan J Gerardo MD; Dr. Olivier Olmstead MD; Dr. Dewayne Vázquez DO ~ Signed [facility] Work Phone: Laboratory - Chemistry and C hemistry - challengeOrdered By: Garo Sales on 06-24-2025 AST [Catalytic activity/Vol] 23 U/L <32 [facility] Phosphoruson 06-24-2025 Phosphate [Mass/Vol] 2.2 mg/dL Low 2.7-4.5 [facility] Comment on above: Performed By: #### L 100.0100, L501.9520, L500.4050, L501.2300 ####[facility] [address] [place], [address] Serum globulin measurementOr dered By: Garo Sales on 06-24-2025 Globulin (S) [Mass/Vol] 2.7 g/dL 2.2-4.2 [facility] Serum or plasma alanine condon otransferase (ALT) measurementOrdered By: Garo Sales on 06-24-2025 ALT [Catalytic activity/Vol] 18 U/L <35 [facility] Serum or plasma albumin hesham urement (mass/volume)Ordered By: Garo Sales on 06-24-2025 Albumin [Mass/Vol] 3.5 g/dL 3.4-4.8 [facility] Serum or plasma albumin/glob ulin mass ratioOrdered By: Garo Sales on 06-24-2025 Albumin/Globulin [Mass ratio] 1.3 {ratio} 0.9-2.4 [facility] Serum or plasma alkaline alee sphatase measurementOrdered By: Garo Sales on 06-24-2025 ALP [Catalytic activity/Vol] 96 U/L 35-104 [facility] TSH DL <= 0.005 mIU/L QnOrde red By: Garo Sales on 06-24-2025 TSH Qn 0.422 uIU/mL 0.300-4.200 [facility] Thyroid Stim Hormone (TSH)on 06-24-2025 TSH 0.422 uIU/mL Normal 0.300-4.200 [facility] Comment on above: Performed By: #### L 100.0100, L501.9520, L500.4050, L501.2300 ####[facility] [address] [place], [address] Total proteinOrdered By: Carlos Sales on 06-24-2025 Protein [Mass/Vol] 6.2 g/dL 5.9-8.4 [facility] 12 Lead EKGon 06-23-2025 12 Lead EKG Normal [facility] 12 Lead EKG Normal [facility] Absolute lymphocyte countOrd ered By: ED PROVIDER on 06-23-2025 Lymphocytes Auto (Unsp spec) [#/Vol] 1.30 10*3/uL 0.83-4.51 [facility] Absolute neutrophil countOrd ered By: ED PROVIDER on 06-23-2025 Neutrophils (Bld) [#/Vol] 4.5 10*3/uL 2.0-7.7 [facility] Activated partial thrombopla stin time (aPTT) in platelet poor plasma by coagulation aOrdered By: Dewayne Vázquez on 06-23-2025 aPTT Coag (PPP) [Time] 27.6 s 24.1-36.2 [facility] Anion gap in Serum or Plasma Ordered By: ED PROVIDER on 06-23-2025 Anion gap [Moles/Vol] 14 mmol/L 5-15 [facility] Automated lymphocyte count a s percentage of total leukocytesOrdered By: ED PROVIDER on 06-23-2025 Lymphocytes/100 WBC Auto (Unsp spec) 19.8 % [facility] BUN/creatinine ratioOrdered By: ED PROVIDER on 06-23-2025 Urea nitrogen/Creatinine [Mass ratio] 24.7 mg/mg High 10- [facility] Basic Metabolic Profile (BMP )on 06-23-2025 BUN/CRE 24.7 RATIO High 10- [facility] Comment on above: Performed By: #### L 501.4021, L500.2500, L100.0100 ####[facility] [address] [place], [address] Calcium [Mass/Vol] 9.4 mg/dL Normal 7.6-11.0 [facility] Comment on above: Performed By: #### L 501.4021, L500.2500, L100.0100 ####[facility] [address] [place], [address] Chloride [Moles/Vol] 104 mmol/L Normal 98-108 [facility] Comment on above: Performed By: #### L 501.4021, L500.2500, L100.0100 ####[facility] [address] [place], [address] CO2 [Moles/Vol] 20.3 mmol/L Low 21.0-32.0 [facility] Comment on above: Performed By: #### L 501.4021, L500.2500, L100.0100 ####[facility] [address] [place], [address] Creatinine [Mass/Vol] 0.67 mg/dL Low 0.70-1.20 [facility] Comment on above: Performed By: #### L 501.4021, L500.2500, L100.0100 ####[facility] [address] [place], [address] GAP 14 Normal 5-15 [facility] Comment on above: Performed By: #### L 501.4021, L500.2500, L100.0100 ####[facility] [address] [place], [address] GFR/1.73 sq M.predicted among non-blacks MDRD (S/P/Bld) [Vol rate/Area] 91 mL/min/{1.73_m2} Normal >60 [facility] Comment on above: Result Comment: mL/m in/1.73m2 CKD-EPI Creatinine Equation (2020) Performed By: #### L 501.4021, L500.2500, L100.0100 ####[facility] [address] [place], [address] Glucose [Mass/Vol] 103 mg/dL High 70-99 [facility] Comment on above: Performed By: #### L 501.4021, L500.2500, L100.0100 ####[facility] [address] [place], [address] Potassium [Moles/Vol] 4.0 mmol/L Normal 3.3-5.1 [facility] Comment on above: Performed By: #### L 501.4021, L500.2500, L100.0100 ####[facility] [address] [place], [address] Sodium [Moles/Vol] 138 mmol/L Normal 133-145 [facility] Comment on above: Performed By: #### L 501.4021, L500.2500, L100.0100 ####[facility] [address] [place], [address] Urea nitrogen [Mass/Vol] 17 mg/dL Normal 4-19 [facility] Comment on above: Performed By: #### L 501.4021, L500.2500, L100.0100 ####[facility] [address] [place], [address] Basophil percentageOrdered B y: ED PROVIDER on 06-23-2025 Basophils/100 WBC (Bld) 0.5 % 0-1 [facility] CBC W/Diff, Automatedon 05-30 Absolute Lymph 1.30 X10 3/uL Normal 0.83-4.51 [facility] Comment on above: Performed By: #### L 501.4021, L500.2500, L100.0100 ####[facility] [address] [place], [address] Absolute Neut 4.5 X10 3/uL Normal 2.0-7.7 [facility] Comment on above: Performed By: #### L 501.4021, L500.2500, L100.0100 ####[facility] [address] [place], [address] Basophils/100 WBC (Bld) 0.5 % Normal 0-1 [facility] Comment on above: Performed By: #### L 501.4021, L500.2500, L100.0100 ####[facility] [address] [place], [address] Eosinophils/100 WBC (Bld) 2.3 % Normal 0-5 [facility] Comment on above: Performed By: #### L 501.4021, L500.2500, L100.0100 ####[facility] [address] [place], [address] Erythrocyte distribution width (RBC) [Ratio] 13.1 % Normal 11.6-14.6 [facility] Comment on above: Performed By: #### L 501.4021, L500.2500, L100.0100 ####[facility] [address] [place], [address] Hematocrit (Bld) [Volume fraction] 42.4 % Normal 37-47 [facility] Comment on above: Performed By: #### L 501.4021, L500.2500, L100.0100 ####[facility] [address] [place], [address] Hemoglobin (Bld) [Mass/Vol] 14.3 g/dL Normal 12.0-15.0 [facility] Comment on above: Performed By: #### L 501.4021, L500.2500, L100.0100 ####[facility] [address] [place], [address] IG% 0.300 Normal 0.0-0.9 [facility] Comment on above: Result Comment: IG% - Immature Granulocytes (promyelocytes, myelocytes andmetamyelocytes) > 1% indicates that a LEFT SHIFT is Present. Performed By: #### L 501.4021, L500.2500, L100.0100 ####[facility] [address] [place], [address] Lymphocytes/100 WBC (Bld) 19.8 % Normal 19-41 [facility] Comment on above: Performed By: #### L 501.4021, L500.2500, L100.0100 ####[facility] [address] [place], [address] MCH (RBC) [Entitic mass] 33.1 pg High 27.0-32.0 [facility] Comment on above: Performed By: #### L 501.4021, L500.2500, L100.0100 ####[facility] [address] [place], [address] MCHC (RBC) [Mass/Vol] 33.7 g/dL Normal 32-36 [facility] Comment on above: Performed By: #### L 501.4021, L500.2500, L100.0100 ####[facility] [address] [place], [address] MCV (RBC) [Entitic vol] 98.1 fL Normal 81-99 [facility] Comment on above: Performed By: #### L 501.4021, L500.2500, L100.0100 ####[facility] [address] [place], [address] Monocytes/100 WBC (Bld) 7.9 % Normal 0-10 [facility] Comment on above: Performed By: #### L 501.4021, L500.2500, L100.0100 ####[facility] [address] [place], [address] Neutrophils/100 WBC (Bld) 69.2 % Normal 47-70 [facility] Comment on above: Performed By: #### L 501.4021, L500.2500, L100.0100 ####[facility] [address] [place], [address] Nucleated RBC (Bld) [#/Vol] 0 10*3/uL Normal 0-5 [facility] Comment on above: Performed By: #### L 501.4021, L500.2500, L100.0100 ####[facility] [address] [place], [address] Platelet mean volume (Bld) [Entitic vol] 10.6 fL Normal 6.2-12.0 [facility] Comment on above: Performed By: #### L 501.4021, L500.2500, L100.0100 ####[facility] [address] [place], [address] Platelets (Bld) [#/Vol] 225 10*3/uL Normal 150-450 [facility] Comment on above: Performed By: #### L 501.4021, L500.2500, L100.0100 ####[facility] [address] [place], [address] RBC (Bld) [#/Vol] 4.32 10*6/uL Normal 4.2-5.4 [facility] Comment on above: Performed By: #### L 501.4021, L500.2500, L100.0100 ####[facility] [address] [place], [address] RDW SD 46.6 fl High 35.1-43.9 [facility] Comment on above: Performed By: #### L 501.4021, L500.2500, L100.0100 ####[facility] [address] [place], [address] WBC (Bld) [#/Vol] 6.6 10*3/uL Normal 4.4-11.0 [facility] Comment on above: Performed By: #### L 501.4021, L500.2500, L100.0100 ####[facility] [address] [place], [address] CTA Chest W/WO Contraston CTA Chest W/WO Contrast Normal [facility] Carbon dioxide, total [Moles /volume] in Central venous bloodOrdered By: ED PROVIDER on 06-23-2025 CO2 [Moles/Vol] 20.3 mmol/L Low 21.0-32.0 [facility] Chest 1 View (Portable)on Chest 1 View (Portable) Normal [facility] Chloride assayOrdered By: ED PROVIDER on 06-23-2025 Chloride [Moles/Vol] 104 mmol/L 98-[address] [facility] Emergency Department Summary on 06-23-2025 Emergency Department Summary Normal [facility] Eosinophil percentageOrdered By: ED PROVIDER on 06-23-2025 Eosinophils/100 WBC (Bld) 2.3 % 0-5 [facility] Erythrocyte distribution wid th ratioOrdered By: ED PROVIDER on 06-23-2025 Erythrocyte distribution width (RBC) [Ratio] 13.1 % 11.6-14.6 [facility] Erythrocyte distribution wid th standard deviationOrdered By: ED PROVIDER on 06-23-2025 Erythrocyte distribution width (RBC) [Ratio] 46.6 fl High 35.1-43.9 [facility] Glomerular filtration rate ( GFR) estimation/1.73 sq m using serum, plasma, or whole bOrdered By: ED PROVIDER on 06-23-2025 GFR/1.73 sq M.predicted among non-blacks MDRD (S/P/Bld) [Vol rate/Area] 91 mL/min/{1.73_m2} >60 [facility] Comment on above: mL/min/1.73m2 CKD-EP I Creatinine Equation (2020) H AND P Exam - [facility] 06-23-2025 H&P Exam - Hospitalist Normal [facility] Hematocrit Auto (Bld) [Volum e fraction]Ordered By: ED PROVIDER on 06-23-2025 Hematocrit (Bld) [Volume fraction] 42.4 % 37-47 [facility] Hemoglobin measurementOrdere d By: ED PROVIDER on 06-23-2025 Hemoglobin (Bld) [Mass/Vol] 14.3 g/dL 12.0-15.0 [facility] Immature granulocytes/100 WB C Auto (Bld)Ordered By: ED PROVIDER on 06-23-2025 Immature granulocytes/100 WBC (Bld) 0.300 % 0.0-0.9 [facility] Comment on above: IG% - Immature Granu locytes (promyelocytes, myelocytes and metamyelocytes) > 1% indicates that a LEFT SHIFT is Present. International normalized rat io (INR) calculationOrdered By: Dewayne Vázquez on 06-23-2025 INR Coag (Bld) [Relative time] 1.2 {INR} [facility] L501.4021on 06-23-2025 Trop T High Sen 12 ng/L Normal <=14 [facility] Comment on above: Performed By: #### L 501.4021, L500.2500, L100.0100 ####[facility] [address] [place], [address] MCV (mean corpuscular volume ) determinationOrdered By: ED PROVIDER on 06-23-2025 MCV (RBC) [Entitic vol] 98.1 fL 81-99 [facility] Magnesiumon 06-23-2025 Magnesium [Mass/Vol] 2.0 mg/dL Normal 1.5-2.2 [facility] Comment on above: Performed By: #### L 501.5200, L503.7505, L300.4310, L300.3900 ####[facility] [address] [place], [address] Magnesium measurement (mass/ volume)Ordered By: Dewayne Vázquez on 06-23-2025 Magnesium (Unsp spec) [Mass/Vol] 2.0 mg/dL 1.5-2.2 [facility] Mean corpuscular hemoglobin (MCH) determinationOrdered By: ED PROVIDER on 06-23-2025 MCH (RBC) [Entitic mass] 33.1 pg High 27.0-32.0 [facility] Mean corpuscular hemoglobin concentration (MCHC) determinationOrdered By: ED PROVIDER on 06-23-2025 MCHC (RBC) [Mass/Vol] 33.7 g/dL 32-36 [facility] Mean platelet volume determi nationOrdered By: ED PROVIDER on 06-23-2025 Platelet mean volume (Bld) [Entitic vol] 10.6 fL 6.2-12.0 [facility] Monocyte percentageOrdered B y: ED PROVIDER on 06-23-2025 Monocytes/100 WBC (Bld) 7.9 % 0-10 [facility] Natriuretic peptide.B prohor edmundo N-Terminal [Mass/volume] in Serum or PlasmaOrdered By: Dewayne Vázquez on 06-23-2025 Natriuretic peptide.B prohormone N-Terminal [Mass/Vol] 685 pg/mL <1800 [facility] Comment on above: Heart Failure Unlike ly: < 300 pg/mLHeart Failure Likely< 50 Years: > 450 pg/mL50-75 Years: > 900 pg/mL>75 Years: > 1800 pg/mL Neutrophil percentageOrdered By: ED PROVIDER on 06-23-2025 Neutrophils/100 WBC (Bld) 69.2 % 47-70 [facility] Nucleated red blood cell per centageOrdered By: ED PROVIDER on 06-23-2025 Nucleated RBC/100 WBC (Bld) [Ratio] 0 % 0-5 [facility] Partial Thromboplast Timeon 06-23-2025 aPTT Coag (Bld) [Time] 27.6 s Normal 24.1-36.2 [facility] Comment on above: Performed By: #### L 501.5200, L503.7505, L300.4310, L300.3900 ####[facility] [address] [place], [place], [id number] Platelet countOrdered By: ED PROVIDER on 06-23-2025 Platelets (Bld) [#/Vol] 225 10*3/uL 150-450 [facility] Potassium measurement (mass/ volume)Ordered By: ED PROVIDER on 06-23-2025 Potassium (Unsp spec) [Mass/Vol] 4.0 mmol/L 3.3-5.1 [facility] Pro- Brain NATRIURETIC PEPTI Aneudy 06-23-2025 Natriuretic peptide B (Bld) [Mass/Vol] 685 pg/mL Normal <=1800 [facility] Comment on above: Result Comment: Hear t Failure Unlikely: < 300 pg/mLHeart Failure Likely< 50 Years: > 450 pg/mL50-75 Years: > 900 pg/mL>75 Years: > 1800 pg/mL Performed By: #### L 501.5200, L503.7505, L300.4310, L300.3900 ####[facility] [address] [place], [address] Prothrombin Time w/INRon INR Coag (PPP) [Relative time] 1.2 {INR} Normal [facility] Comment on above: Performed By: #### L 501.5200, L503.7505, L300.4310, L300.3900 ####[facility] [address] [place], [address] PT Coag (PPP) [Time] 15.5 s High 11.7-14.9 [facility] Comment on above: Performed By: #### L 501.5200, L503.7505, L300.4310, L300.3900 ####[facility] [address] [place], [address] Prothrombin timeOrdered By: Dewayne Vázquez on 06-23-2025 PT Coag (PPP) [Time] 15.5 s High 11.7-14.9 [facility] RBC Auto (Bld) [#/Vol]Ordere d By: ED PROVIDER on 06-23-2025 RBC (Bld) [#/Vol] 4.32 10*6/uL 4.2-5.4 [facility] Serum creatinine measurement (mass/volume)Ordered By: ED PROVIDER on 06-23-2025 Creatinine [Mass/Vol] 0.67 mg/dL Low 0.70-1.20 [facility] Serum glucose measurement (m ass/volume)Ordered By: ED PROVIDER on 06-23-2025 Glucose [Mass/Vol] 103 mg/dL High 70-99 [facility] Serum or plasma calcium hesham urement (mass/volume)Ordered By: ED PROVIDER on 06-23-2025 Calcium [Mass/Vol] 9.4 mg/dL 7.6-11.0 [facility] Serum or plasma urea nitroge n measurement (mass/volume)Ordered By: ED PROVIDER on 06-23-2025 Urea nitrogen [Mass/Vol] 17 mg/dL 4-19 [facility] Sodium levelOrdered By: ED La WALTON on 06-23-2025 Sodium [Moles/Vol] 138 mmol/L 133-145 [facility] Troponin T HS 2 HRon 025 Trop T High Sen 13 ng/L Normal <=14 [facility] Comment on above: Performed By: #### L 499.0042 ####[facility] [address] [place], [address] Troponin T HS 4 HRon 025 Trop T High Sen Normal <=14 [facility] Comment on above: Result Comment: Josette elled via OM: Ordered Performed By: #### L 499.0043 ####[facility] [address] [place], [address] Troponin T.cardiac [Mass/vol ume] in Serum or Plasma by High sensitivity methodOrdered By: Dewayne Vázquez on 06-23-2025 Troponin T.cardiac High sensitivity method [Mass/Vol] 13 ng/L <14 [facility] Troponin T.cardiac [Mass/vol ume] in Serum or Plasma by High sensitivity methodOrdered By: ED PROVIDER on 06-23-2025 Troponin T.cardiac High sensitivity method [Mass/Vol] 12 ng/L Invalid Interpretation Code <14 [facility] Comment on above: Delta: 15 on White blood cell (WBC) count Ordered By: ED PROVIDER on 06-23-2025 WBC (Bld) [#/Vol] 6.6 10*3/uL 4.4-11.0 [facility] Echo Completeon 06-11-2025 Echo Complete Normal [facility] Echocardiogram study reportO rdered By: Jose Gomez on 06-11-2025 Study report [facility] [address] [place] [address] Echo Complete 06/11/25 1005 MR#: [id number] Acct: [id number] Name: DONNA CEJA Rep #:[id number] 2 : 1950 74 From: Jose Luevano Attending Dr: JAGRUTI Hernandes atus: REG CLI Ordering Dr: Arnie Garcia Date: 06/11/25 Location: [facility] Sex: F C Admitted: Reason For [...] ~ Date Dictated: 06/11/25 1005 Date Transcribed: 06/11/25 144 [employer] Inspector: Signed [facility] Work Phone: 12 Lead EKGon 06-08-2025 12 Lead EKG Normal [facility] Troponin T HS 2 HRon 025 Trop T High Sen 19 ng/L High <=14 [facility] Comment on above: Performed By: #### L 499.0042 ####[facility] [address] [place], [place], [address] Troponin T HS 4 HRon 025 Trop T High Sen 17 ng/L High <=14 [facility] Comment on above: Performed By: #### L 499.0043 ####[facility] [address] [place], [place], [address] Troponin T.cardiac [Mass/vol ume] in Serum or Plasma by High sensitivity methodOrdered By: Carlos Darnell on 06-08-2025 Troponin T.cardiac High sensitivity method [Mass/Vol] 17 ng/L High <14 [facility] 12 Lead EKGon 06-07-2025 12 Lead EKG Normal [facility] Absolute lymphocyte countOrd ered By: Carlos Darnell on 06-07-2025 Lymphocytes Auto (Unsp spec) [#/Vol] 2.66 10*3/uL 0.83-4.51 [facility] Absolute neutrophil countOrd ered By: Carlos Darnell on 06-07-2025 Neutrophils (Bld) [#/Vol] 3.9 10*3/uL 2.0-7.7 [facility] Activated partial thrombopla stin time (aPTT) in platelet poor plasma by coagulation aOrdered By: Carlos Darnell on 06-07-2025 aPTT Coag (PPP) [Time] 20.6 s Low 24.1-36.2 [facility] Anion gap in Serum or Plasma Ordered By: Carlos Darnell on 06-07-2025 Anion gap [Moles/Vol] 11 mmol/L 5-15 [facility] Automated lymphocyte count a s percentage of total leukocytesOrdered By: Carlos Darnell on 06-07-2025 Lymphocytes/100 WBC Auto (Unsp spec) 36.1 % 19-41 [facility] BUN/creatinine ratioOrdered By: Carlos Darnell on 06-07-2025 Urea nitrogen/Creatinine [Mass ratio] 23.8 mg/mg High 10- [facility] Basic Metabolic Profile (BMP )on 06-07-2025 BUN/CRE 23.8 RATIO High 08-17 [facility] Comment on above: Performed By: #### L 300.3900, L100.0100, L300.4310, L501.9520, L500.2500, L501.5200, L501.4021 ####[facility] [address] [place], [place], [address] Calcium [Mass/Vol] 9.3 mg/dL Normal 7.6-11.0 [facility] Comment on above: Performed By: #### L 300.3900, L100.0100, L300.4310, L501.9520, L500.2500, L501.5200, L501.4021 ####[facility] [address] [place], [address] Chloride [Moles/Vol] 104 mmol/L Normal 98-108 [facility] Comment on above: Performed By: #### L 300.3900, L100.0100, L300.4310, L501.9520, L500.2500, L501.5200, L501.4021 ####[facility] [address] [place], [address] CO2 [Moles/Vol] 23.0 mmol/L Normal 21.0-32.0 [facility] Comment on above: Performed By: #### L 300.3900, L100.0100, L300.4310, L501.9520, L500.2500, L501.5200, L501.4021 ####[facility] [address] [place], [address] Creatinine [Mass/Vol] 0.78 mg/dL Normal 0.70-1.20 [facility] Comment on above: Performed By: #### L 300.3900, L100.0100, L300.4310, L501.9520, L500.2500, L501.5200, L501.4021 ####[facility] [address] [place], [address] ECRCL 66.87 ml/min Normal 50-250 [facility] Comment on above: Performed By: #### L 300.3900, L100.0100, L300.4310, L501.9520, L500.2500, L501.5200, L501.4021 ####[facility] [address] [place], [address] GAP 11 Normal 5-15 [facility] Comment on above: Performed By: #### L 300.3900, L100.0100, L300.4310, L501.9520, L500.2500, L501.5200, L501.4021 ####[facility] [address] [place], [address] GFR/1.73 sq M.predicted among non-blacks MDRD (S/P/Bld) [Vol rate/Area] 79 mL/min/{1.73_m2} Normal >60 [facility] Comment on above: Result Comment: mL/m in/1.73m2 CKD-EPI Creatinine Equation (2020) Performed By: #### L 300.3900, L100.0100, L300.4310, L501.9520, L500.2500, L501.5200, L501.4021 ####[facility] [address] [place], [address] Glucose [Mass/Vol] 95 mg/dL Normal 70-99 [facility] Comment on above: Performed By: #### L 300.3900, L100.0100, L300.4310, L501.9520, L500.2500, L501.5200, L501.4021 ####[facility] [address] [place], [address] Potassium [Moles/Vol] 4.3 mmol/L Normal 3.3-5.1 [facility] Comment on above: Performed By: #### L 300.3900, L100.0100, L300.4310, L501.9520, L500.2500, L501.5200, L501.4021 ####[facility] [address] [place], [address] Sodium [Moles/Vol] 138 mmol/L Normal 133-145 [facility] Comment on above: Performed By: #### L 300.3900, L100.0100, L300.4310, L501.9520, L500.2500, L501.5200, L501.4021 ####[facility] [address] [place], [address] Urea nitrogen [Mass/Vol] 19 mg/dL Normal 4-19 [facility] Comment on above: Performed By: #### L 300.3900, L100.0100, L300.4310, L501.9520, L500.2500, L501.5200, L501.4021 ####[facility] [address] [place], [address] Basophil percentageOrdered B y: Carloslyndon Darnell on 06-07-2024 Basophils/100 WBC (Bld) 0.3 % 0-1 [facility] CBC W/Diff, Automatedon 05-29-2024 Absolute Lymph 2.66 X10 3/uL Normal 0.83-4.51 [facility] Comment on above: Performed By: #### L 300.3900, L100.0100, L300.4310, L501.9520, L500.2500, L501.5200, L501.4021 ####[facility] [address] [place], [address] Absolute Neut 3.9 X10 3/uL Normal 2.0-7.7 [facility] Comment on above: Performed By: #### L 300.3900, L100.0100, L300.4310, L501.9520, L500.2500, L501.5200, L501.4021 ####[facility] [address] [place], [address] Basophils/100 WBC (Bld) 0.3 % Normal 0-1 [facility] Comment on above: Performed By: #### L 300.3900, L100.0100, L300.4310, L501.9520, L500.2500, L501.5200, L501.4021 ####[facility] [address] [place], [address] Eosinophils/100 WBC (Bld) 2.4 % Normal 0-5 [facility] Comment on above: Performed By: #### L 300.3900, L100.0100, L300.4310, L501.9520, L500.2500, L501.5200, L501.4021 ####[facility] [address] [place], [address] Erythrocyte distribution width (RBC) [Ratio] 13.6 % Normal 11.6-14.6 [facility] Comment on above: Performed By: #### L 300.3900, L100.0100, L300.4310, L501.9520, L500.2500, L501.5200, L501.4021 ####[facility] [address] [place], [address] Hematocrit (Bld) [Volume fraction] 44.5 % Normal 37-47 [facility] Comment on above: Performed By: #### L 300.3900, L100.0100, L300.4310, L501.9520, L500.2500, L501.5200, L501.4021 ####[facility] [address] [place], [address] Hemoglobin (Bld) [Mass/Vol] 14.9 g/dL Normal 12.0-15.0 [facility] Comment on above: Performed By: #### L 300.3900, L100.0100, L300.4310, L501.9520, L500.2500, L501.5200, L501.4021 ####[facility] [address] [place], [address] IG% 0.500 Normal 0.0-0.9 [facility] Comment on above: Result Comment: IG% - Immature Granulocytes (promyelocytes, myelocytes andmetamyelocytes) > 1% indicates that a LEFT SHIFT is Present. Performed By: #### L 300.3900, L100.0100, L300.4310, L501.9520, L500.2500, L501.5200, L501.4021 ####[facility] [address] [place], [address] Lymphocytes/100 WBC (Bld) 36.1 % Normal 19-41 [facility] Comment on above: Performed By: #### L 300.3900, L100.0100, L300.4310, L501.9520, L500.2500, L501.5200, L501.4021 ####[facility] [address] [place], [address] MCH (RBC) [Entitic mass] 32.6 pg High 27.0-32.0 [facility] Comment on above: Performed By: #### L 300.3900, L100.0100, L300.4310, L501.9520, L500.2500, L501.5200, L501.4021 ####[facility] [address] [place], [address] MCHC (RBC) [Mass/Vol] 33.5 g/dL Normal 32-36 [facility] Comment on above: Performed By: #### L 300.3900, L100.0100, L300.4310, L501.9520, L500.2500, L501.5200, L501.4021 ####[facility] [address] [place], [address] MCV (RBC) [Entitic vol] 97.4 fL Normal 81-99 [facility] Comment on above: Performed By: #### L 300.3900, L100.0100, L300.4310, L501.9520, L500.2500, L501.5200, L501.4021 ####[facility] [address] [place], [address] Monocytes/100 WBC (Bld) 7.3 % Normal 0-10 [facility] Comment on above: Performed By: #### L 300.3900, L100.0100, L300.4310, L501.9520, L500.2500, L501.5200, L501.4021 ####[facility] [address] [place], [address] Neutrophils/100 WBC (Bld) 53.4 % Normal 47-70 [facility] Comment on above: Performed By: #### L 300.3900, L100.0100, L300.4310, L501.9520, L500.2500, L501.5200, L501.4021 ####[facility] [address] [place], [address] Nucleated RBC (Bld) [#/Vol] 0 10*3/uL Normal 0-5 [facility] Comment on above: Performed By: #### L 300.3900, L100.0100, L300.4310, L501.9520, L500.2500, L501.5200, L501.4021 ####[facility] [address] [place], [address] Platelet mean volume (Bld) [Entitic vol] 10.9 fL Normal 6.2-12.0 [facility] Comment on above: Performed By: #### L 300.3900, L100.0100, L300.4310, L501.9520, L500.2500, L501.5200, L501.4021 ####[facility] [address] [place], [address] Platelets (Bld) [#/Vol] 261 10*3/uL Normal 150-450 [facility] Comment on above: Performed By: #### L 300.3900, L100.0100, L300.4310, L501.9520, L500.2500, L501.5200, L501.4021 ####[facility] [address] [place], [address] RBC (Bld) [#/Vol] 4.57 10*6/uL Normal 4.2-5.4 [facility] Comment on above: Performed By: #### L 300.3900, L100.0100, L300.4310, L501.9520, L500.2500, L501.5200, L501.4021 ####[facility] [address] [place], [address] RDW SD 49.0 fl High 35.1-43.9 [facility] Comment on above: Performed By: #### L 300.3900, L100.0100, L300.4310, L501.9520, L500.2500, L501.5200, L501.4021 ####[facility] [address] [place], [address] WBC (Bld) [#/Vol] 7.4 10*3/uL Normal 4.4-11.0 [facility] Comment on above: Performed By: #### L 300.3900, L100.0100, L300.4310, L501.9520, L500.2500, L501.5200, L501.4021 ####[facility] [address] [facility] [place], [place], [phone] Carbon dioxide, total [Moles /volume] in Central venous bloodOrdered By: Carlos Darnell on 06-07-2025 CO2 [Moles/Vol] 23.0 mmol/L 21.0-32.0 [facility] Chest 1 View (Portable)on Chest 1 View (Portable) Normal [facility] Chloride assayOrdered By: Maciel Darnell on 06-07-2025 Chloride [Moles/Vol] 104 mmol/L 98-108 [facility] Emergency Department Summary on 06-07-2025 Emergency Department Summary Normal [facility] Eosinophil percentageOrdered By: Carlos Darnell on 06-07-2025 Eosinophils/100 WBC (Bld) 2.4 % 0-5 [facility] Erythrocyte distribution wid th ratioOrdered By: Carlos Darnell on 06-07-2025 Erythrocyte distribution width (RBC) [Ratio] 13.6 % 11.6-14.6 [facility] Erythrocyte distribution wid th standard deviationOrdered By: Carlos Darnell on 06-07-2025 Erythrocyte distribution width (RBC) [Ratio] 49.0 fl High 35.1-43.9 [facility] Glomerular filtration rate ( GFR) estimation/1.73 sq m using serum, plasma, or whole bOrdered By: Carlos Darnell on 06-07-2025 GFR/1.73 sq M.predicted among non-blacks MDRD (S/P/Bld) [Vol rate/Area] 79 mL/min/{1.73_m2} >60 [facility] Comment on above: mL/min/1.73m2 CKD-EP I Creatinine Equation (2020) Hematocrit Auto (Bld) [Volum e fraction]Ordered By: Carlos Darnell on 06-07-2025 Hematocrit (Bld) [Volume fraction] 44.5 % 37-47 [facility] Hemoglobin measurementOrdere d By: Carlos Darnell on 06-07-2025 Hemoglobin (Bld) [Mass/Vol] 14.9 g/dL 12.0-15.0 [facility] Immature granulocytes/100 WB C Auto (Bld)Ordered By: Carlos Darnell on 06-07-2025 Immature granulocytes/100 WBC (Bld) 0.500 % 0.0-0.9 [facility] Comment on above: IG% - Immature Granu locytes (promyelocytes, myelocytes and metamyelocytes) > 1% indicates that a LEFT SHIFT is Present. International normalized rat io (INR) calculationOrdered By: Carlos Darnell on 06-07-2025 INR Coag (Bld) [Relative time] 0.9 {INR} [facility] L501.4021on 06-07-2025 Trop T High Sen 15 ng/L High <=14 [facility] Comment on above: Performed By: #### L 300.3900, L100.0100, L300.4310, L501.9520, L500.2500, L501.5200, L501.4021 ####[facility] [address] [place], [address] MCV (mean corpuscular volume ) determinationOrdered By: Carlos Darnell on 06-07-2025 MCV (RBC) [Entitic vol] 97.4 fL 81-99 [facility] Magnesiumon 06-07-2025 Magnesium [Mass/Vol] 2.3 mg/dL High 1.5-2.2 [facility] Comment on above: Performed By: #### L 300.3900, L100.0100, L300.4310, L501.9520, L500.2500, L501.5200, L501.4021 ####[facility] [address] [place], [address] Magnesium measurement (mass/ volume)Ordered By: Carlos Darnell on 06-07-2025 Magnesium (Unsp spec) [Mass/Vol] 2.3 mg/dL High 1.5-2.2 [facility] Mean corpuscular hemoglobin (MCH) determinationOrdered By: Carlos Darnell on 06-07-2025 MCH (RBC) [Entitic mass] 32.6 pg High 27.0-32.0 [facility] Mean corpuscular hemoglobin concentration (MCHC) determinationOrdered By: Carlos Darnell on 06-07-2025 MCHC (RBC) [Mass/Vol] 33.5 g/dL 32-36 [facility] Mean platelet volume determi nationOrdered By: Carlos Darnell on 06-07-2025 Platelet mean volume (Bld) [Entitic vol] 10.9 fL 6.2-12.0 [facility] Monocyte percentageOrdered B y: Carlos Darnell on 06-07-2025 Monocytes/100 WBC (Bld) 7.3 % 0-10 [facility] Neutrophil percentageOrdered By: Carlos Darnell on 06-07-2025 Neutrophils/100 WBC (Bld) 53.4 % 47-70 [facility] Nucleated red blood cell per centageOrdered By: Carlos Darnell on 06-07-2025 Nucleated RBC/100 WBC (Bld) [Ratio] 0 % 0-5 [facility] Partial Thromboplast Timeon 06-07-2025 aPTT Coag (Bld) [Time] 20.6 s Low 24.1-36.2 [facility] Comment on above: Performed By: #### L 300.3900, L100.0100, L300.4310, L501.9520, L500.2500, L501.5200, L501.4021 ####[facility] [address] [place], [address] Platelet countOrdered By: Maciel Darnell on 06-07-2025 Platelets (Bld) [#/Vol] 261 10*3/uL 150-450 [facility] Potassium measurement (mass/ volume)Ordered By: Carlos Darnell on 06-07-2025 Potassium (Unsp spec) [Mass/Vol] 4.3 mmol/L 3.3-5.1 [facility] Prothrombin Time w/INRon INR Coag (PPP) [Relative time] 0.9 {INR} Normal [facility] Comment on above: Performed By: #### L 300.3900, L100.0100, L300.4310, L501.9520, L500.2500, L501.5200, L501.4021 ####[facility] [address] [place], [address] PT Coag (PPP) [Time] 12.5 s Normal 11.7-14.9 [facility] Comment on above: Performed By: #### L 300.3900, L100.0100, L300.4310, L501.9520, L500.2500, L501.5200, L501.4021 ####[facility] [address] [place], [address] Prothrombin timeOrdered By: Carlos Darnell on 06-07-2025 PT Coag (PPP) [Time] 12.5 s 11.7-14.9 [facility] RBC Auto (Bld) [#/Vol]Ordere d By: Carlos Darnell on 06-07-2025 RBC (Bld) [#/Vol] 4.57 10*6/uL 4.2-5.4 [facility] Serum creatinine measurement (mass/volume)Ordered By: Carlos Darnell on 06-07-2025 Creatinine [Mass/Vol] 0.78 mg/dL 0.70-1.20 [facility] Serum glucose measurement (m ass/volume)Ordered By: Carlos Darnell on 06-07-2025 Glucose [Mass/Vol] 95 mg/dL 70-99 [facility] Serum or plasma calcium hesham urement (mass/volume)Ordered By: Carlos Darnell on 06-07-2025 Calcium [Mass/Vol] 9.3 mg/dL 7.6-11.0 [facility] Serum or plasma urea nitroge n measurement (mass/volume)Ordered By: Carlos Darnell on 06-07-2025 Urea nitrogen [Mass/Vol] 19 mg/dL 4-19 [facility] Sodium levelOrdered By: Carlos Darnell on 06-07-2025 Sodium [Moles/Vol] 138 mmol/L 133-145 [facility] TSH DL <= 0.005 mIU/L QnOrde red By: Carlos Darnell on 06-07-2025 TSH Qn 0.995 uIU/mL 0.300-4.200 [facility] Thyroid Stim Hormone (TSH)on 06-07-2025 TSH 0.995 uIU/mL Normal 0.300-4.200 [facility] Comment on above: Performed By: #### L 300.3900, L100.0100, L300.4310, L501.9520, L500.2500, L501.5200, L501.4021 ####[facility] [id number] [place], [place], [id number] Troponin T.cardiac [Mass/vol ume] in Serum or Plasma by High sensitivity methodOrdered By: Carlos Darnell on 06-07-2025 Troponin T.cardiac High sensitivity method [Mass/Vol] 19 ng/L High <14 [facility] Troponin T.cardiac High sensitivity method [Mass/Vol] 15 ng/L High <14 [facility] Comment on above: Delta: 13 on 5-1020 White blood cell (WBC) count Ordered By: Carlos Darnell on 06-07-2025 WBC (Bld) [#/Vol] 7.4 10*3/uL 4.4-11.0 [facility] L/S Spine Min 4 Viewson L/S Spine Min 4 Views Normal [facility] Cardiology Visit Reporton Cardiology Visit Report Normal [facility] 12 Lead EKGon 04-20-2025 12 Lead EKG Normal [facility] 12 Lead EKG Normal [facility] Absolute lymphocyte countOrd ered By: ED PROVIDER on 04-20-2025 Lymphocytes Auto (Unsp spec) [#/Vol] 1.23 10*3/uL 0.83-4.51 [facility] Absolute neutrophil countOrd ered By: ED PROVIDER on 04-20-2025 Neutrophils (Bld) [#/Vol] 4.3 10*3/uL 2.0-7.7 [facility] Anion gap in Serum or Plasma Ordered By: ED PROVIDER on 04-20-2025 Anion gap [Moles/Vol] 10 mmol/L - [facility] Automated lymphocyte count a s percentage of total leukocytesOrdered By: ED PROVIDER on 04-20-2025 Lymphocytes/100 WBC Auto (Unsp spec) 20.5 % [facility] BUN/creatinine ratioOrdered By: ED PROVIDER on 04-20-2025 Urea nitrogen/Creatinine [Mass ratio] 27.6 mg/mg High 08-17 [facility] Basic Metabolic Profile (BMP )on 04-20-2025 BUN/CRE 27.6 RATIO High 08-17 [facility] Comment on above: Performed By: #### L 500.2500, L501.4021, L100.0100 ####[facility] [address] [place], [address] Calcium [Mass/Vol] 8.9 mg/dL Normal 7.6-11.0 [facility] Comment on above: Performed By: #### L 500.2500, L501.4021, L100.0100 ####[facility] [address] [place], [address] Chloride [Moles/Vol] 105 mmol/L Normal 98-108 [facility] Comment on above: Performed By: #### L 500.2500, L501.4021, L100.0100 ####[facility] [address] [place], [address] CO2 [Moles/Vol] 23.5 mmol/L Normal 21.0-32.0 [facility] Comment on above: Performed By: #### L 500.2500, L501.4021, L100.0100 ####[facility] [address] [place], [address] Creatinine [Mass/Vol] 0.65 mg/dL Low 0.70-1.20 [facility] Comment on above: Performed By: #### L 500.2500, L501.4021, L100.0100 ####[facility] [address] [place], [address] GAP 10 Normal 5-15 [facility] Comment on above: Performed By: #### L 500.2500, L501.4021, L100.0100 ####[facility] [address] [place], [address] GFR/1.73 sq M.predicted among non-blacks MDRD (S/P/Bld) [Vol rate/Area] 91 mL/min/{1.73_m2} Normal >60 [facility] Comment on above: Result Comment: mL/m in/1.73m2 CKD-EPI Creatinine Equation (2020) Performed By: #### L 500.2500, L501.4021, L100.0100 ####[facility] [address] [place], [address] Glucose [Mass/Vol] 96 mg/dL Normal 70-99 [facility] Comment on above: Performed By: #### L 500.2500, L501.4021, L100.0100 ####[facility] [address] [place], [address] Potassium [Moles/Vol] 4.2 mmol/L Normal 3.3-5.1 [facility] Comment on above: Performed By: #### L 500.2500, L501.4021, L100.0100 ####[facility] [address] [place], [address] Sodium [Moles/Vol] 139 mmol/L Normal 133-145 [facility] Comment on above: Performed By: #### L 500.2500, L501.4021, L100.0100 ####[facility] [address] [place], [address] Urea nitrogen [Mass/Vol] 18 mg/dL Normal 4-19 [facility] Comment on above: Performed By: #### L 500.2500, L501.4021, L100.0100 ####[facility] [address] [place], [address] Basophil percentageOrdered B y: ED PROVIDER on 04-20-2025 Basophils/100 WBC (Bld) 0.3 % 0-1 [facility] CBC W/Diff, Automatedon 03-30 Absolute Lymph 1.23 X10 3/uL Normal 0.83-4.51 [facility] Comment on above: Performed By: #### L 500.2500, L501.4021, L100.0100 ####[facility] [address] [place], [address] Absolute Neut 4.3 X10 3/uL Normal 2.0-7.7 [facility] Comment on above: Performed By: #### L 500.2500, L501.4021, L100.0100 ####[facility] [address] [place], [address] Basophils/100 WBC (Bld) 0.3 % Normal 0-1 [facility] Comment on above: Performed By: #### L 500.2500, L501.4021, L100.0100 ####[facility] [address] [place], [address] Eosinophils/100 WBC (Bld) 2.3 % Normal 0-5 [facility] Comment on above: Performed By: #### L 500.2500, L501.4021, L100.0100 ####[facility] [address] [place], [address] Erythrocyte distribution width (RBC) [Ratio] 13.6 % Normal 11.6-14.6 [facility] Comment on above: Performed By: #### L 500.2500, L501.4021, L100.0100 ####[facility] [address] [place], [address] Hematocrit (Bld) [Volume fraction] 43.2 % Normal 37-47 [facility] Comment on above: Performed By: #### L 500.2500, L501.4021, L100.0100 ####[facility] [address] [place], [address] Hemoglobin (Bld) [Mass/Vol] 14.4 g/dL Normal 12.0-15.0 [facility] Comment on above: Performed By: #### L 500.2500, L501.4021, L100.0100 ####[facility] [address] [place], [address] IG% 0.200 Normal 0.0-0.9 [facility] Comment on above: Result Comment: IG% - Immature Granulocytes (promyelocytes, myelocytes andmetamyelocytes) > 1% indicates that a LEFT SHIFT is Present. Performed By: #### L 500.2500, L501.4021, L100.0100 ####[facility] [address] [place], [address] Lymphocytes/100 WBC (Bld) 20.5 % Normal 19-41 [facility] Comment on above: Performed By: #### L 500.2500, L501.4021, L100.0100 ####[facility] [address] [place], [address] MCH (RBC) [Entitic mass] 32.7 pg High 27.0-32.0 [facility] Comment on above: Performed By: #### L 500.2500, L501.4021, L100.0100 ####[facility] [address] [place], [address] MCHC (RBC) [Mass/Vol] 33.3 g/dL Normal 32-36 [facility] Comment on above: Performed By: #### L 500.2500, L501.4021, L100.0100 ####[facility] [address] [place], [address] MCV (RBC) [Entitic vol] 98.0 fL Normal 81-99 [facility] Comment on above: Performed By: #### L 500.2500, L501.4021, L100.0100 ####[facility] [address] [place], [address] Monocytes/100 WBC (Bld) 5.7 % Normal 0-10 [facility] Comment on above: Performed By: #### L 500.2500, L501.4021, L100.0100 ####[facility] [address] [place], [address] Neutrophils/100 WBC (Bld) 71.0 % High 47-70 [facility] Comment on above: Performed By: #### L 500.2500, L501.4021, L100.0100 ####[facility] [address] [place], [address] Nucleated RBC (Bld) [#/Vol] 0 10*3/uL Normal 0-5 [facility] Comment on above: Performed By: #### L 500.2500, L501.4021, L100.0100 ####[facility] [address] [place], [address] Platelet mean volume (Bld) [Entitic vol] 10.3 fL Normal 6.2-12.0 [facility] Comment on above: Performed By: #### L 500.2500, L501.4021, L100.0100 ####[facility] [address] [place], [address] Platelets (Bld) [#/Vol] 233 10*3/uL Normal 150-450 [facility] Comment on above: Performed By: #### L 500.2500, L501.4021, L100.0100 ####[facility] [address] [place], [address] RBC (Bld) [#/Vol] 4.41 10*6/uL Normal 4.2-5.4 [facility] Comment on above: Performed By: #### L 500.2500, L501.4021, L100.0100 ####[facility] [address] [place], [address] RDW SD 49.3 fl High 35.1-43.9 [facility] Comment on above: Performed By: #### L 500.2500, L501.4021, L100.0100 ####[facility] [address] [place], [address] WBC (Bld) [#/Vol] 6.0 10*3/uL Normal 4.4-11.0 [facility] Comment on above: Performed By: #### L 500.2500, L501.4021, L100.0100 ####[facility] [address] [place], [address] Carbon dioxide, total [Moles /volume] in Central venous bloodOrdered By: ED PROVIDER on 04-20-2025 CO2 [Moles/Vol] 23.5 mmol/L 21.0-32.0 [facility] Chest PA and Lateralon 04-20 Chest PA and Lateral Normal [facility] Chloride assayOrdered By: ED PROVIDER on 04-20-2025 Chloride [Moles/Vol] 105 mmol/L 98-108 [facility] Emergency Department Summary on 04-20-2025 Emergency Department Summary Normal [facility] Eosinophil percentageOrdered By: ED PROVIDER on 04-20-2025 Eosinophils/100 WBC (Bld) 2.3 % 0-5 [facility] Erythrocyte distribution wid th ratioOrdered By: ED PROVIDER on 04-20-2025 Erythrocyte distribution width (RBC) [Ratio] 13.6 % 11.6-14.6 [facility] Erythrocyte distribution wid th standard deviationOrdered By: ED PROVIDER on 04-20-2025 Erythrocyte distribution width (RBC) [Ratio] 49.3 fl High 35.1-43.9 [facility] Glomerular filtration rate ( GFR) estimation/1.73 sq m using serum, plasma, or whole bOrdered By: ED PROVIDER on 04-20-2025 GFR/1.73 sq M.predicted among non-blacks MDRD (S/P/Bld) [Vol rate/Area] 91 mL/min/{1.73_m2} >60 [facility] Comment on above: mL/min/1.73m2 CKD-EP I Creatinine Equation (2020) Hematocrit Auto (Bld) [Volum e fraction]Ordered By: ED PROVIDER on 04-20-2025 Hematocrit (Bld) [Volume fraction] 43.2 % 37-47 [facility] Hemoglobin measurementOrdere d By: ED PROVIDER on 04-20-2025 Hemoglobin (Bld) [Mass/Vol] 14.4 g/dL 12.0-15.0 [facility] Immature granulocytes/100 WB C Auto (Bld)Ordered By: ED PROVIDER on 04-20-2025 Immature granulocytes/100 WBC (Bld) 0.200 % 0.0-0.9 [facility] Comment on above: IG% - Immature Granu locytes (promyelocytes, myelocytes and metamyelocytes) > 1% indicates that a LEFT SHIFT is Present. L499.0042on 04-20-2025 Trop T High Sen 12 ng/L Normal <=14 [facility] Comment on above: Performed By: #### L 499.0042 ####[facility] [address] [place], [address] L499.0043on 04-20-2025 Trop T High Sen Normal <=14 [facility] Comment on above: Result Comment: GERARDO ENT DISCHARGED. SPECIMEN NOT RECEIVED Performed By: #### L 499.0043 ####[facility] [address] [place], [address] L501.4021on 04-20-2025 Trop T High Sen 13 ng/L Normal <=14 [facility] Comment on above: Performed By: #### L 500.2500, L501.4021, L100.0100 ####[facility] [address] [place], [address] MCV (mean corpuscular volume ) determinationOrdered By: ED PROVIDER on 04-20-2025 MCV (RBC) [Entitic vol] 98.0 fL 81-99 [facility] Mean corpuscular hemoglobin (MCH) determinationOrdered By: ED PROVIDER on 04-20-2025 MCH (RBC) [Entitic mass] 32.7 pg High 27.0-32.0 [facility] Mean corpuscular hemoglobin concentration (MCHC) determinationOrdered By: ED PROVIDER on 04-20-2025 MCHC (RBC) [Mass/Vol] 33.3 g/dL 32-36 [facility] Mean platelet volume determi nationOrdered By: ED PROVIDER on 04-20-2025 Platelet mean volume (Bld) [Entitic vol] 10.3 fL 6.2-12.0 [facility] Monocyte percentageOrdered B y: ED PROVIDER on 04-20-2025 Monocytes/100 WBC (Bld) 5.7 % 0-10 [facility] Neutrophil percentageOrdered By: ED PROVIDER on 04-20-2025 Neutrophils/100 WBC (Bld) 71.0 % High 47-70 [facility] Nucleated red blood cell per centageOrdered By: ED PROVIDER on 04-20-2025 Nucleated RBC/100 WBC (Bld) [Ratio] 0 % 0-5 [facility] Platelet countOrdered By: ED PROVIDER on 04-20-2025 Platelets (Bld) [#/Vol] 233 10*3/uL 150-450 [facility] Potassium measurement (mass/ volume)Ordered By: ED PROVIDER on 04-20-2025 Potassium (Unsp spec) [Mass/Vol] 4.2 mmol/L 3.3-5.1 [facility] RBC Auto (Bld) [#/Vol]Ordere d By: ED PROVIDER on 04-20-2025 RBC (Bld) [#/Vol] 4.41 10*6/uL 4.2-5.4 [facility] Serum creatinine measurement (mass/volume)Ordered By: ED PROVIDER on 04-20-2025 Creatinine [Mass/Vol] 0.65 mg/dL Low 0.70-1.20 [facility] Serum glucose measurement (m ass/volume)Ordered By: ED PROVIDER on 04-20-2025 Glucose [Mass/Vol] 96 mg/dL 70-99 [facility] Serum or plasma calcium hesham urement (mass/volume)Ordered By: ED PROVIDER on 04-20-2025 Calcium [Mass/Vol] 8.9 mg/dL 7.6-11.0 [facility] Serum or plasma urea nitroge n measurement (mass/volume)Ordered By: ED PROVIDER on 04-20-2025 Urea nitrogen [Mass/Vol] 18 mg/dL 4-19 [facility] Sodium levelOrdered By: RAND WALTON on 04-20-2025 Sodium [Moles/Vol] 139 mmol/L 133-145 [facility] Troponin T.cardiac [Mass/vol ume] in Serum or Plasma by High sensitivity methodOrdered By: Dewayne Vázquez on 04-20-2025 Troponin T.cardiac High sensitivity method [Mass/Vol] 12 ng/L <14 [facility] Troponin T.cardiac [Mass/vol ume] in Serum or Plasma by High sensitivity methodOrdered By: ED PROVIDER on 04-20-2025 Troponin T.cardiac High sensitivity method [Mass/Vol] 13 ng/L <14 [facility] White blood cell (WBC) count Ordered By: ED PROVIDER on 04-20-2025 WBC (Bld) [#/Vol] 6.0 10*3/uL 4.4-11.0 [facility] CT Chest, Abd, Pel w/Contras ton 04-06-2025 CT Chest, Abd, Pel w/Contrast Normal [facility] Absolute lymphocyte countOrd ered By: Olivier Olmstead on 12-31-2024 Lymphocytes Auto (Unsp spec) [#/Vol] 1.13 10*3/uL 0.83-4.51 [facility] Absolute neutrophil countOrd ered By: Olivier Olmstead on 12-31-2024 Neutrophils (Bld) [#/Vol] 2.9 10*3/uL 2.0-7.7 [facility] Anion gap in Serum or Plasma Ordered By: Olivier Olmstead on 12-31-2024 Anion gap [Moles/Vol] 15 mmol/L 5-15 [facility] Automated lymphocyte count a s percentage of total leukocytesOrdered By: Olivier Olmstead on 12-31-2024 Lymphocytes/100 WBC Auto (Unsp spec) 24.8 % 19-41 [facility] BUN/creatinine ratioOrdered By: Olivier Olmstead on 12-31-2024 Urea nitrogen/Creatinine [Mass ratio] 27.7 mg/mg High 10-20 [facility] Basophil percentageOrdered B y: Olivier Olmstead on 12-31-2024 Basophils/100 WBC (Bld) 0.4 % 0-1 [facility] Bilirubin, totalOrdered By: Olivier Olmstead on 12-31-2024 Bilirubin [Mass/Vol] 0.53 mg/dL 0.00-1.30 [facility] CBC W/Diff, Automatedon Absolute Lymph 1.13 X10 3/uL Normal 0.83-4.51 [facility] Comment on above: Performed By: #### L 500.4100, L500.4050, L501.9520, L506.1001, L100.0100 ####[facility] [address] [place], [address] Absolute Neut 2.9 X10 3/uL Normal 2.0-7.7 [facility] Comment on above: Performed By: #### L 500.4100, L500.4050, L501.9520, L506.1001, L100.0100 ####[facility] [address] [place], [address] Basophils/100 WBC (Bld) 0.4 % Normal 0-1 [facility] Comment on above: Performed By: #### L 500.4100, L500.4050, L501.9520, L506.1001, L100.0100 ####[facility] [address] [place], [address] Eosinophils/100 WBC (Bld) 2.9 % Normal 0-5 [facility] Comment on above: Performed By: #### L 500.4100, L500.4050, L501.9520, L506.1001, L100.0100 ####[facility] [address] [place], [address] Erythrocyte distribution width (RBC) [Ratio] 13.4 % Normal 11.6-14.6 [facility] Comment on above: Performed By: #### L 500.4100, L500.4050, L501.9520, L506.1001, L100.0100 ####[facility] [address] [place], [address] Hematocrit (Bld) [Volume fraction] 45.1 % Normal 37-47 [facility] Comment on above: Performed By: #### L 500.4100, L500.4050, L501.9520, L506.1001, L100.0100 ####[facility] [address] [place], [address] Hemoglobin (Bld) [Mass/Vol] 14.9 g/dL Normal 12.0-15.0 [facility] Comment on above: Performed By: #### L 500.4100, L500.4050, L501.9520, L506.1001, L100.0100 ####[facility] [address] [place], [address] IG% 0.200 Normal 0.0-0.9 [facility] Comment on above: Result Comment: IG% - Immature Granulocytes (promyelocytes, myelocytes andmetamyelocytes) > 1% indicates that a LEFT SHIFT is Present. Performed By: #### L 500.4100, L500.4050, L501.9520, L506.1001, L100.0100 ####[facility] [address] [place], [address] Lymphocytes/100 WBC (Bld) 24.8 % Normal 19-41 [facility] Comment on above: Performed By: #### L 500.4100, L500.4050, L501.9520, L506.1001, L100.0100 ####[facility] [address] [place], [address] MCH (RBC) [Entitic mass] 32.4 pg High 27.0-32.0 [facility] Comment on above: Performed By: #### L 500.4100, L500.4050, L501.9520, L506.1001, L100.0100 ####[facility] [address] [place], [address] MCHC (RBC) [Mass/Vol] 33.0 g/dL Normal 32-36 [facility] Comment on above: Performed By: #### L 500.4100, L500.4050, L501.9520, L506.1001, L100.0100 ####[facility] [address] [place], [address] MCV (RBC) [Entitic vol] 98.0 fL Normal 81-99 [facility] Comment on above: Performed By: #### L 500.4100, L500.4050, L501.9520, L506.1001, L100.0100 ####[facility] [address] [place], [address] Monocytes/100 WBC (Bld) 8.1 % Normal 0-10 [facility] Comment on above: Performed By: #### L 500.4100, L500.4050, L501.9520, L506.1001, L100.0100 ####[facility] [address] [place], [address] Neutrophils/100 WBC (Bld) 63.6 % Normal 47-70 [facility] Comment on above: Performed By: #### L 500.4100, L500.4050, L501.9520, L506.1001, L100.0100 ####[facility] [address] [place], [address] Nucleated RBC (Bld) [#/Vol] 0 10*3/uL Normal 0-5 [facility] Comment on above: Performed By: #### L 500.4100, L500.4050, L501.9520, L506.1001, L100.0100 ####[facility] [address] [place], [address] Platelet mean volume (Bld) [Entitic vol] 10.7 fL Normal 6.2-12.0 [facility] Comment on above: Performed By: #### L 500.4100, L500.4050, L501.9520, L506.1001, L100.0100 ####[facility] [address] [place], [address] Platelets (Bld) [#/Vol] 191 10*3/uL Normal 150-450 [facility] Comment on above: Performed By: #### L 500.4100, L500.4050, L501.9520, L506.1001, L100.0100 ####[facility] [address] [place], [address] RBC (Bld) [#/Vol] 4.60 10*6/uL Normal 4.2-5.4 [facility] Comment on above: Performed By: #### L 500.4100, L500.4050, L501.9520, L506.1001, L100.0100 ####[facility] [address] [place], [address] RDW SD 48.5 fl High 35.1-43.9 [facility] Comment on above: Performed By: #### L 500.4100, L500.4050, L501.9520, L506.1001, L100.0100 ####[facility] [address] [place], [address] WBC (Bld) [#/Vol] 4.6 10*3/uL Normal 4.4-11.0 [facility] Comment on above: Performed By: #### L 500.4100, L500.4050, L501.9520, L506.1001, L100.0100 ####[facility] [address] [place], [address] Calculated very low density lipoprotein (VLDL) cholesterol measurementOrdered By: Olivier Omlstead on 12-31-2024 Calculated very low density lipoprotein (VLDL) cholesterol measurement 22 mg/dL 5-40 [facility] VLDL Cholesterol 22 mg/dL 5-40 [facility] Carbon dioxide, total [Moles /volume] in Central venous bloodOrdered By: Olivier Olmstead on 12-31-2024 CO2 [Moles/Vol] 20.8 mmol/L Low 21.0-32.0 [facility] Chloride assayOrdered By: Dre Olmstead on 12-31-2024 Chloride [Moles/Vol] 105 mmol/L 98-108 [facility] Comprehensive Metabolic Prof ilon 12-31-2024 Albumin [Mass/Vol] 4.1 g/dL Normal 3.4-4.8 [facility] Comment on above: Performed By: #### L 500.4100, L500.4050, L501.9520, L506.1001, L100.0100 ####[facility] [address] [place], [address] Albumin/Globulin [Mass ratio] 1.4 {ratio} Normal 0.9-2.4 [facility] Comment on above: Performed By: #### L 500.4100, L500.4050, L501.9520, L506.1001, L100.0100 ####[facility] [address] [place], [address] ALK PHOS 122 U/L High 35-104 [facility] Comment on above: Performed By: #### L 500.4100, L500.4050, L501.9520, L506.1001, L100.0100 ####[facility] [address] [place], [address] ALT [Catalytic activity/Vol] 35 U/L Normal <=34 [facility] Comment on above: Performed By: #### L 500.4100, L500.4050, L501.9520, L506.1001, L100.0100 ####[facility] [address] [place], [address] AST [Catalytic activity/Vol] 36 U/L High <=31 [facility] Comment on above: Performed By: #### L 500.4100, L500.4050, L501.9520, L506.1001, L100.0100 ####[facility] [address] [place], [address] Bilirubin [Mass/Vol] 0.53 mg/dL Normal 0.00-1.30 [facility] Comment on above: Performed By: #### L 500.4100, L500.4050, L501.9520, L506.1001, L100.0100 ####[facility] [address] [place], [address] BUN/CRE 27.7 RATIO High 10-20 [facility] Comment on above: Performed By: #### L 500.4100, L500.4050, L501.9520, L506.1001, L100.0100 ####[facility] [address] [place], [address] Calcium [Mass/Vol] 9.7 mg/dL Normal 7.6-11.0 [facility] Comment on above: Performed By: #### L 500.4100, L500.4050, L501.9520, L506.1001, L100.0100 ####[facility] [address] [place], [address] Chloride [Moles/Vol] 105 mmol/L Normal 98-108 [facility] Comment on above: Performed By: #### L 500.4100, L500.4050, L501.9520, L506.1001, L100.0100 ####[facility] [address] [place], [address] CO2 [Moles/Vol] 20.8 mmol/L Low 21.0-32.0 [facility] Comment on above: Performed By: #### L 500.4100, L500.4050, L501.9520, L506.1001, L100.0100 ####[facility] [address] [place], [address] Creatinine [Mass/Vol] 0.67 mg/dL Low 0.70-1.20 [facility] Comment on above: Performed By: #### L 500.4100, L500.4050, L501.9520, L506.1001, L100.0100 ####[facility] [address] [place], [address] GAP 15 Normal 5-15 [facility] Comment on above: Performed By: #### L 500.4100, L500.4050, L501.9520, L506.1001, L100.0100 ####[facility] [address] [place], [address] GFR/1.73 sq M.predicted among non-blacks MDRD (S/P/Bld) [Vol rate/Area] 91 mL/min/{1.73_m2} Normal >60 [facility] Comment on above: Result Comment: mL/m in/1.73m2 CKD-EPI Creatinine Equation (2020) Performed By: #### L 500.4100, L500.4050, L501.9520, L506.1001, L100.0100 ####[facility] [id number] [place], [address] Globulin (S) [Mass/Vol] 2.9 g/dL Normal 2.2-4.2 [facility] Comment on above: Performed By: #### L 500.4100, L500.4050, L501.9520, L506.1001, L100.0100 ####[facility] [id number] [place], [address] Glucose [Mass/Vol] 92 mg/dL Normal 70-99 [facility] Comment on above: Performed By: #### L 500.4100, L500.4050, L501.9520, L506.1001, L100.0100 ####[facility] [id number] [place], [address] Potassium [Moles/Vol] 3.9 mmol/L Normal 3.3-5.1 [facility] Comment on above: Performed By: #### L 500.4100, L500.4050, L501.9520, L506.1001, L100.0100 ####[facility] [address] [place], [address] Sodium [Moles/Vol] 141 mmol/L Normal 133-145 [facility] Comment on above: Performed By: #### L 500.4100, L500.4050, L501.9520, L506.1001, L100.0100 ####[facility] [address] [place], [address] T PROT 7.0 g/dL Normal 5.9-8.4 [facility] Comment on above: Performed By: #### L 500.4100, L500.4050, L501.9520, L506.1001, L100.0100 ####[facility] [address] [place], [address] Urea nitrogen [Mass/Vol] 19 mg/dL Normal 4-19 [facility] Comment on above: Performed By: #### L 500.4100, L500.4050, L501.9520, L506.1001, L100.0100 ####[facility] [address] [place], [address] Eosinophil percentageOrdered By: Olivier Olmstead on 12-31-2024 Eosinophils/100 WBC (Bld) 2.9 % 0-5 [facility] Erythrocyte distribution wid th ratioOrdered By: Olivier Olmstead on 12-31-2024 Erythrocyte distribution width (RBC) [Ratio] 13.4 % 11.6-14.6 [facility] Erythrocyte distribution wid th standard deviationOrdered By: Olivier Olmstead on 12-31-2024 Erythrocyte distribution width (RBC) [Entitic vol] 48.5 fL High 35.1-43.9 [facility] Erythrocyte distribution width (RBC) [Ratio] 48.5 fl High 35.1-43.9 [facility] GFR/1.73 sq M.predicted [facility] non-blacks MDRD (S/P/Bld) [Vol rate/Area]Ordered By: Olivier Olmstead on 12-31-2024 Estimated GFR (MDRD) Non-Af Amer 91 >60 [facility] Comment on above: mL/min/1.73m2 CKD-EP I Creatinine Equation (2020) Glomerular filtration rate ( GFR) estimation/1.73 sq m using serum, plasma, or whole bOrdered By: Olivier Olmstead on 12-31-2024 GFR/1.73 sq M.predicted among non-blacks MDRD (S/P/Bld) [Vol rate/Area] 91 mL/min/{1.73_m2} >60 [facility] Comment on above: mL/min/1.73m2 CKD-EP I Creatinine Equation (2020) Hematocrit Auto (Bld) [Volum e fraction]Ordered By: Olivier Olmstead on 12-31-2024 Hematocrit (Bld) [Volume fraction] 45.1 % 37-47 [facility] Hemoglobin measurementOrdere d By: Olivier Olmstead on 12-31-2024 Hemoglobin (Bld) [Mass/Vol] 14.9 g/dL 12.0-15.0 [facility] Immature granulocytes/100 WB C Auto (Bld)Ordered By: Olivier Olmstead on 12-31-2024 Immature granulocytes/100 WBC (Bld) 0.200 % 0.0-0.9 [facility] Comment on above: IG% - Immature Granu locytes (promyelocytes, myelocytes and metamyelocytes) > 1% indicates that a LEFT SHIFT is Present. L506.1001on 12-31-2024 Vitamin D 25-OH 37.5 ng/mL Normal 30-100 [facility] Comment on above: Result Comment: Damaris min D StatusDeficiency: <20 ng/mL (50nmol/L)Insufficiency: 20-30 ng/mL (50-75 nmol/L)Sufficiency: 30-100 ng/mL (75-250 nmol/L)Toxicity: >100 ng/mL (>250 nmol/L) Performed By: #### L 500.4100, L500.4050, L501.9520, L506.1001, L100.0100 ####[facility] [address] [place], [place], [id number] LDL calc ser/plasOrdered By: Olivier Olmstead on 12-31-2024 Cholesterol in LDL [Mass/Vol] 114 mg/dL [facility] Comment on above: Yiwngvifqz=726-453 m g/dL & Higher Mwbx=930 mg/dL or greater LDL Cholesterol, Calculated 114 mg/dL [facility] Comment on above: Lrvjsmleht=661-129 m g/dL & Higher Pgbg=512 mg/dL or greater Laboratory - Chemistry and C hemistry - challengeOrdered By: Olivier Olmstead on 12-31-2024 AST [Catalytic activity/Vol] 36 U/L High <32 [facility] Lipid Profileon 12-31-2024 CHOL:HDL 3.04 Normal [facility] Comment on above: Performed By: #### L 500.4100, L500.4050, L501.9520, L506.1001, L100.0100 ####[facility] [address] [place], [address] Cholesterol [Mass/Vol] 203 mg/dL High <=200 [facility] Comment on above: Result Comment: Chol esterol level, Desirable <200 mg/dLBorderline high cholesterol 200-239 mg/dLHigh cholesterol >=240 mg/dLRecommendations of the NCEP Adult Treatment Panel for thefollowing risk-cutoff thresholds for the [place] [facility]. Performed By: #### L 500.4100, L500.4050, L501.9520, L506.1001, L100.0100 ####[facility] [address] [place], [address] Cholesterol in HDL [Mass/Vol] 67 mg/dL Normal [facility] Comment on above: Result Comment: Magda onal Cholesterol Education Program (NCEP) guidelines:<40 mg/dL: Low HDL-cholesterol (major risk factor for CHD)>= 60 mg/dL: High HDL-cholesterol (negative risk factor forCHD)HDL-cholesterol is affected by a number of factors, e.g.smoking, exercise, hormones, sex and age. Performed By: #### L 500.4100, L500.4050, L501.9520, L506.1001, L100.0100 ####[facility] [address] [place], [address] Cholesterol in LDL [Mass/Vol] 114 mg/dL Normal [facility] Comment on above: Result Comment: Bord reywea=360-689 mg/dL Higher Vuiz=391 mg/dL or greater Performed By: #### L 500.4100, L500.4050, L501.9520, L506.1001, L100.0100 ####[facility] [address] [place], [address] Cholesterol in VLDL [Mass/Vol] 22 mg/dL Normal 5-40 [facility] Comment on above: Performed By: #### L 500.4100, L500.4050, L501.9520, L506.1001, L100.0100 ####[facility] [address] [place], [address] Triglyceride [Mass/Vol] 112 mg/dL Normal [facility] Comment on above: Result Comment: The drugs N-Acetylcysteine and Metamizole may falselydepress this assay.Normal range: <150 mg/dLBorderline High: 150-199 mg/dLHigh: 200-499 mg/dLVery High: >500 mg/dL Performed By: #### L 500.4100, L500.4050, L501.9520, L506.1001, L100.0100 ####[facility] [address] [place], [address] Lymphocytes Auto (Unsp spec) [#/Vol]Ordered By: Olivier Olmstead on 12-31-2024 Lymphocytes (Bld) [#/Vol] 1.13 10*3/uL 0.83-4.51 [facility] Lymphocytes/100 WBC Auto (Un sp spec)Ordered By: Olivier Olmstead on 12-31-2024 Lymphocytes/100 WBC (Bld) 24.8 % 19-41 [facility] MCV (mean corpuscular volume ) determinationOrdered By: Olivier Olmstead on 12-31-2024 MCV (RBC) [Entitic vol] 98.0 fL 81-99 [facility] Mean corpuscular hemoglobin (MCH) determinationOrdered By: Olivier Olmstead on 12-31-2024 MCH (RBC) [Entitic mass] 32.4 pg High 27.0-32.0 [facility] Mean corpuscular hemoglobin concentration (MCHC) determinationOrdered By: Olivier Olmstead on 12-31-2024 MCHC (RBC) [Mass/Vol] 33.0 g/dL 32-36 [facility] Mean platelet volume determi nationOrdered By: Olivier Olmstead on 12-31-2024 Platelet mean volume (Bld) [Entitic vol] 10.7 fL 6.2-12.0 [facility] Monocyte percentageOrdered B y: Olivier Olmstead on 12-31-2024 Monocytes/100 WBC (Bld) 8.1 % 0-10 [facility] Neutrophil percentageOrdered By: Olivier Olmstead on 12-31-2024 Neutrophils/100 WBC (Bld) 63.6 % 47-70 [facility] Nucleated red blood cell per centageOrdered By: Olivier Olmstead on 12-31-2024 Nucleated RBC/100 WBC (Bld) [Ratio] 0 % 0-5 [facility] Platelet countOrdered By: Dre Olmstead on 12-31-2024 Platelets (Bld) [#/Vol] 191 10*3/uL 150-450 [facility] Potassium (Unsp spec) [Mass/ Vol]Ordered By: Olivier Olmstead on 12-31-2024 Potassium [Moles/Vol] 3.9 mmol/L 3.3-5.1 [facility] Potassium measurement (mass/ volume)Ordered By: Olivier Olmstead on 12-31-2024 Potassium (Unsp spec) [Mass/Vol] 3.9 mmol/L 3.3-5.1 [facility] RBC Auto (Bld) [#/Vol]Ordere d By: Olivier Olmstead on 12-31-2024 RBC (Bld) [#/Vol] 4.60 10*6/uL 4.2-5.4 [facility] Screening total cholesterol/ high density lipoprotein (HDL) cholesterol ratioOrdered By: Olivier Olmstead on 12-31-2024 Cholesterol.total/Anna sterol in HDL [Mass ratio] 3.04 {ratio} [facility] Serum creatinine measurement (mass/volume)Ordered By: Olivier Olmstead on 12-31-2024 Creatinine [Mass/Vol] 0.67 mg/dL Low 0.70-1.20 [facility] Serum globulin measurementOr dered By: Olivier Olmstead on 12-31-2024 Globulin (S) [Mass/Vol] 2.9 g/dL 2.2-4.2 [facility] Serum glucose measurement (m ass/volume)Ordered By: Olivier Olmstead on 12-31-2024 Glucose [Mass/Vol] 92 mg/dL 70-99 [facility] Serum or plasma alanine condon otransferase (ALT) measurementOrdered By: Olivier Olmstead on 12-31-2024 ALT [Catalytic activity/Vol] 35 U/L <35 [facility] Serum or plasma albumin hesham urement (mass/volume)Ordered By: Olivier Olmstead 12-31-2024 Albumin [Mass/Vol] 4.1 g/dL 3.4-4.8 [facility] Serum or plasma albumin/glob ulin mass ratioOrdered By: Olivier Olmstead 12-31-2024 Albumin/Globulin [Mass ratio] 1.4 {ratio} 0.9-2.4 [facility] Serum or plasma alkaline alee sphatase measurementOrdered By: Olivier Olmstead 12-31-2024 ALP [Catalytic activity/Vol] 122 U/L High 35-104 [facility] Serum or plasma calcium hesham urement (mass/volume)Ordered By: Olivier Olmstead 12-31-2024 Calcium [Mass/Vol] 9.7 mg/dL 7.6-11.0 [facility] Serum or plasma cholesterol in HDL measurement (mass/volume)Ordered By: Olivier Olmstead 12-31-2024 Cholesterol in HDL [Mass/Vol] 67 mg/dL >40 [facility] Comment on above: National Cholesterol Education Program (NCEP) guidelines:<40 mg/dL: Low HDL-cholesterol (major risk factor for CHD)>= 60 mg/dL: High HDL-cholesterol (negative risk factor for CHD)HDL-cholesterol is affected by a number of factors, e.g. smoking, exercise, hormones, sex and age. Serum or plasma cholesterol measurement (mass/volume)Ordered By: Olivier Olmstead on 12-31-2024 Cholesterol [Mass/Vol] 203 mg/dL High <201 [facility] Comment on above: Cholesterol level, D esirable <200 mg/dLBorderline high cholesterol 200-239 mg/dLHigh cholesterol >=240 mg/dLRecommendations of the NCEP Adult Treatment Panel for the following risk-cutoff thresholds for the [place] population. Serum or plasma urea nitroge n measurement (mass/volume)Ordered By: Olivier Olmstead on 12-31-2024 Urea nitrogen [Mass/Vol] 19 mg/dL 4-19 [facility] Sodium levelOrdered By: Olivier Olmstead on 12-31-2024 Sodium [Moles/Vol] 141 mmol/L 133-145 [facility] TSH DL <= 0.005 mIU/L QnOrde red By: Olivier Olmstead on 12-31-2024 Thyroid Stimulating Hormone (TSH) 0.510 uIU/mL 0.300-4.200 [facility] TSH Qn 0.510 uIU/mL 0.300-4.200 [facility] Thyroid Stim Hormone (TSH)on 12-31-2024 TSH 0.510 uIU/mL Normal 0.300-4.200 [facility] Comment on above: Performed By: #### L 500.4100, L500.4050, L501.9520, L506.1001, L100.0100 ####[facility] [address] [place], [address] Total proteinOrdered By: Olivier Olmstead on 12-31-2024 Protein [Mass/Vol] 7.0 g/dL 5.9-8.4 [facility] Triglycerides measurementOrd ered By: Olivier Olmstead on 12-31-2024 Triglyceride [Mass/Vol] 112 mg/dL <199 [facility] Comment on above: The drugs N-Acetylcy steine and Metamizole may falsely depress this assay. Normal range: <150 mg/dLBorderline High: 150-199 mg/dLHigh: 200-499 mg/dLVery High: >500 mg/dL Vitamin D, 25-hydroxyOrdered By: Olivier Olmstead on 12-31-2024 Vitamin D 25-Hydroxy 37.5 ng/mL 30-100 [facility] Comment on above: Vitamin D StatusDefi ciency: <20 ng/mL (50nmol/L)Insufficiency: 20-30 ng/mL (50-75 nmol/L)Sufficiency: 30-100 ng/mL (75-250 nmol/L)Toxicity: >100 ng/mL (>250 nmol/L) White blood cell (WBC) count Ordered By: Olivier Olmstead on 12-31-2024 WBC (Bld) [#/Vol] 4.6 10*3/uL 4.4-11.0 [facility] 12 Lead EKG performed by BMS on 12-25-2024 12 Lead EKG performed by BMS Normal [facility] Cardiology Visit Reporton Cardiology Visit Report Normal [facility] ENTERIC PATHOGEN PANEL STOOL on 11-22-2024 EP PANEL Normal [facility] Comment on above: Performed By: #### M 100.637 ####[facility] [address] [place], [address] Urine Cultureon 11-22-2024 URC Normal [facility] Comment on above: Performed By: #### L 500.4050, M100.678, L100.0100, M100.2200 ####[facility] [address] [place], [address] Stool enteric pathogen panel by probe and target amplification methodOrdered By: Olivier Olmstead on 11-21-2024 Enteric Bacteriology [facility] Abdomen/Pelvis WITH Contrast on 11-20-2024 Abdomen/Pelvis WITH Contrast Normal [facility] Absolute neutrophil countOrd ered By: Olivier Olmstead on 11-20-2024 Neutrophils (Bld) [#/Vol] 4.1 10*3/uL 2.0-7.7 [facility] Albumin to globulin ratioOrd ered By: Olivier Olmstead on 11-20-2024 Albumin/Globulin [Mass ratio] 0.8 {ratio} Low 0.9-2.4 [facility] Basophil percentageOrdered B y: Olivier Olmstead on 11-20-2024 Basophils/100 WBC (Bld) 0.5 % 0-1 [facility] Bilirubin, totalOrdered By: Olivier Olmstead on 11-20-2024 Bilirubin [Mass/Vol] 1.30 mg/dL High 0.20-1.00 [facility] Comment on above: For patients on eltr ombopag therapy, use of Dimension Excel TBIL is not recommended. Blood urea nitrogen (BUN)/cr eatinine ratioOrdered By: Olivier Olmstead on 11-20-2024 Urea nitrogen/Creatinine [Mass ratio] 25.0 mg/mg High 10-20 [facility] CBC W/Diff, Automatedon 10-30 Absolute Lymph 1.04 X10 3/uL Normal 0.83-4.51 [facility] Comment on above: Performed By: #### L 500.4050, M100.678, L100.0100, M100.2200 ####[facility] [address] [place], [address] Absolute Neut 4.1 X10 3/uL Normal 2.0-7.7 [facility] Comment on above: Performed By: #### L 500.4050, M100.678, L100.0100, M100.2200 ####[facility] [address] [place], [address] Basophils/100 WBC (Bld) 0.5 % Normal 0-1 [facility] Comment on above: Performed By: #### L 500.4050, M100.678, L100.0100, M100.2200 ####[facility] [address] [place], [address] Eosinophils/100 WBC (Bld) 3.1 % Normal 0-5 [facility] Comment on above: Performed By: #### L 500.4050, M100.678, L100.0100, M100.2200 ####[facility] [address] [place], [address] Erythrocyte distribution width (RBC) [Ratio] 12.3 % Normal 11.6-14.6 [facility] Comment on above: Performed By: #### L 500.4050, M100.678, L100.0100, M100.2200 ####[facility] [address] [place], [address] Hematocrit (Bld) [Volume fraction] 40.1 % Normal 37-47 [facility] Comment on above: Performed By: #### L 500.4050, M100.678, L100.0100, M100.2200 ####[facility] [address] [place], [address] Hemoglobin (Bld) [Mass/Vol] 13.5 g/dL Normal 12.0-15.0 [facility] Comment on above: Performed By: #### L 500.4050, M100.678, L100.0100, M100.2200 ####[facility] [address] [place], [address] IG% 0.500 Normal 0.0-0.9 [facility] Comment on above: Result Comment: IG% - Immature Granulocytes (promyelocytes, myelocytes andmetamyelocytes) > 1% indicates that a LEFT SHIFT is Present. Performed By: #### L 500.4050, M100.678, L100.0100, M100.2200 ####[facility] [address] [place], [address] Lymphocytes/100 WBC (Bld) 17.7 % Low 19-41 [facility] Comment on above: Performed By: #### L 500.4050, M100.678, L100.0100, M100.2200 ####[facility] [address] [place], [address] MCH (RBC) [Entitic mass] 32.0 pg Normal 27.0-32.0 [facility] Comment on above: Performed By: #### L 500.4050, M100.678, L100.0100, M100.2200 ####[facility] [address] [place], [address] MCHC (RBC) [Mass/Vol] 33.7 g/dL Normal 32-36 [facility] Comment on above: Performed By: #### L 500.4050, M100.678, L100.0100, M100.2200 ####[facility] [address] [place], [address] MCV (RBC) [Entitic vol] 95.0 fL Normal 81-99 [facility] Comment on above: Performed By: #### L 500.4050, M100.678, L100.0100, M100.2200 ####[facility] [address] [place], [address] Monocytes/100 WBC (Bld) 8.5 % Normal 0-10 [facility] Comment on above: Performed By: #### L 500.4050, M100.678, L100.0100, M100.2200 ####[facility] [address] [place], [address] Neutrophils/100 WBC (Bld) 69.7 % Normal 47-70 [facility] Comment on above: Performed By: #### L 500.4050, M100.678, L100.0100, M100.2200 ####[facility] [address] [place], [address] Nucleated RBC (Bld) [#/Vol] 0 10*3/uL Normal 0-5 [facility] Comment on above: Performed By: #### L 500.4050, M100.678, L100.0100, M100.2200 ####[facility] [address] [place], [address] Platelet mean volume (Bld) [Entitic vol] 10.9 fL Normal 6.2-12.0 [facility] Comment on above: Performed By: #### L 500.4050, M100.678, L100.0100, M100.2200 ####[facility] [address] [place], [address] Platelets (Bld) [#/Vol] 195 10*3/uL Normal 150-450 [facility] Comment on above: Performed By: #### L 500.4050, M100.678, L100.0100, M100.2200 ####[facility] [address] [place], [address] RBC (Bld) [#/Vol] 4.22 10*6/uL Normal 4.2-5.4 [facility] Comment on above: Performed By: #### L 500.4050, M100.678, L100.0100, M100.2200 ####[facility] [address] [place], [address] RDW SD 42.8 fl Normal 35.1-43.9 [facility] Comment on above: Performed By: #### L 500.4050, M100.678, L100.0100, M100.2200 ####[facility] [address] [place], [address] WBC (Bld) [#/Vol] 5.9 10*3/uL Normal 4.4-11.0 [facility] Comment on above: Performed By: #### L 500.4050, M100.678, L100.0100, M100.2200 ####[facility] [address] [place], [address] Carbon dioxide measurementOr dered By: Olivier Olmstead on 11-20-2024 CO2 [Moles/Vol] 22.0 mmol/L 21.0-32.0 [facility] Chloride measurementOrdered By: Olivier Olmstead on 11-20-2024 Chloride [Moles/Vol] 104 mmol/L 98-107 [facility] Comprehensive Metabolic Prof ilon 11-20-2024 Albumin [Mass/Vol] 3.1 g/dL Low 3.2-5.0 [facility] Comment on above: Performed By: #### L 500.4050, M100.678, L100.0100, M100.2200 ####[facility] [address] [place], [address] Albumin/Globulin [Mass ratio] 0.8 {ratio} Low 0.9-2.4 [facility] Comment on above: Performed By: #### L 500.4050, M100.678, L100.0100, M100.2200 ####[facility] [address] [place], [address] ALK P 142 U/L High 45-117 [facility] Comment on above: Performed By: #### L 500.4050, M100.678, L100.0100, M100.2200 ####[facility] [address] [place], [address] ALT [Catalytic activity/Vol] 28 U/L Normal 13-56 [facility] Comment on above: Performed By: #### L 500.4050, M100.678, L100.0100, M100.2200 ####[facility] [address] [place], [address] AST [Catalytic activity/Vol] 24 U/L Normal 15-37 [facility] Comment on above: Performed By: #### L 500.4050, M100.678, L100.0100, M100.2200 ####[facility] [address] [place], [address] Bilirubin [Mass/Vol] 1.30 mg/dL High 0.20-1.00 [facility] Comment on above: Result Comment: For patients on eltrombopag therapy, use of Dimension Excel TBIL is not recommended. Performed By: #### L 500.4050, M100.678, L100.0100, M100.2200 ####[facility] [address] [place], [address] BUN/CRE 25.0 RATIO High 10-20 [facility] Comment on above: Performed By: #### L 500.4050, M100.678, L100.0100, M100.2200 ####[facility] [address] [place], [address] CA,Total 9.3 mg/dL Normal 8.5-10.1 [facility] Comment on above: Performed By: #### L 500.4050, M100.678, L100.0100, M100.2200 ####[facility] [address] [place], [address] Chloride [Moles/Vol] 104 mmol/L Normal 98-107 [facility] Comment on above: Performed By: #### L 500.4050, M100.678, L100.0100, M100.2200 ####[facility] [address] [place], [address] CO2 [Moles/Vol] 22.0 mmol/L Normal 21.0-32.0 [facility] Comment on above: Performed By: #### L 500.4050, M100.678, L100.0100, M100.2200 ####[facility] [address] [place], [address] Creatinine [Mass/Vol] 0.56 mg/dL Normal 0.55-1.02 [facility] Comment on above: Result Comment: The validity of the calculated GFR GFRAA in patients over70 years has not been determined. Clinical correlation isessential. Performed By: #### L 500.4050, M100.678, L100.0100, M100.2200 ####[facility] [address] [place], [address] EST GFR - AA 135 mL/min Normal >60 [facility] Comment on above: Result Comment: Afri can [place] GFR Calc Performed By: #### L 500.4050, M100.678, L100.0100, M100.2200 ####[facility] [address] [place], [address] GAP 9 Normal 5-15 [facility] Comment on above: Performed By: #### L 500.4050, M100.678, L100.0100, M100.2200 ####[facility] [address] [place], [address] GFR/1.73 sq M.predicted among non-blacks MDRD (S/P/Bld) [Vol rate/Area] 112 mL/min/{1.73_m2} Normal >60 [facility] Comment on above: Result Comment: Non- GFR Calc Performed By: #### L 500.4050, M100.678, L100.0100, M100.2200 ####[facility] [address] [place], [address] Globulin (S) [Mass/Vol] 3.7 g/dL Normal 2.2-4.2 [facility] Comment on above: Performed By: #### L 500.4050, M100.678, L100.0100, M100.2200 ####[facility] [address] [place], [address] Glucose [Mass/Vol] 97 mg/dL Normal 74-106 [facility] Comment on above: Performed By: #### L 500.4050, M100.678, L100.0100, M100.2200 ####[facility] [address] [place], [address] Potassium [Moles/Vol] 3.8 mmol/L Normal 3.5-5.1 [facility] Comment on above: Performed By: #### L 500.4050, M100.678, L100.0100, M100.2200 ####[facility] [address] [place], [address] Sodium [Moles/Vol] 135 mmol/L Low 136-145 [facility] Comment on above: Performed By: #### L 500.4050, M100.678, L100.0100, M100.2200 ####[facility] [address] [place], [address] T PROT 6.8 g/dL Normal 6.4-8.2 [facility] Comment on above: Performed By: #### L 500.4050, M100.678, L100.0100, M100.2200 ####[facility] [address] [place], [address] Urea nitrogen [Mass/Vol] 14 mg/dL Normal 7-18 [facility] Comment on above: Performed By: #### L 500.4050, M100.678, L100.0100, M100.2200 ####[facility] [address] [place], [address] Eosinophil percentageOrdered By: Olivier Olmstead on 11-20-2024 Eosinophils/100 WBC (Bld) 3.1 % 0-5 [facility] Erythrocyte distribution wid th ratioOrdered By: Olivier Olmstead 11-20-2024 Erythrocyte distribution width (RBC) [Ratio] 12.3 % 11.6-14.6 [facility] Erythrocyte distribution wid th standard deviationOrdered By: Olivier Olmstead on 11-20-2024 Erythrocyte distribution width (RBC) [Entitic vol] 42.8 fL 35.1-43.9 [facility] Estimated glomerular filtrat ion rate (GFR) AmericanOrdered By: Olivier Olmstead on 11-20-2024 Estimated GFR (MDRD) Amer 135 mL/min >60 [facility] Comment on above: GFR Calc Glomerular filtration rate ( GFR) estimationOrdered By: Olivier Olmstead on 11-20-2024 Estimated GFR (MDRD) Non-Af Amer 112 mL/min >60 [facility] Comment on above: Non- GFR Calc Glucose measurementOrdered B y: Olivier Ishan on 11-20-2024 Glucose [Mass/Vol] 97 mg/dL 74-106 [facility] Hematocrit Auto (Bld) [Volum e fraction]Ordered By: Olivier Olmstead on 11-20-2024 Hematocrit (Bld) [Volume fraction] 40.1 % 37-47 [facility] Hemoglobin measurementOrdere d By: Olivier Olmstead on 11-20-2024 Hemoglobin (Bld) [Mass/Vol] 13.5 g/dL 12.0-15.0 [facility] Immature granulocytes/100 WB C Auto (Bld)Ordered By: Olivier Olmstead on 11-20-2024 Immature granulocytes/100 WBC (Bld) 0.500 % 0.0-0.9 [facility] Comment on above: IG% - Immature Granu locytes (promyelocytes, myelocytes and metamyelocytes) > 1% indicates that a LEFT SHIFT is Present. Influenza virus A and B and SARS-CoV-2 (COVID-19) and Respiratory syncytial virus RNAOrdered By: Olivier Olmstead on 11-20-2024 SARS-CoV-2 (COVID-19) RNA FLORENTIN+probe Ql (Unsp spec) [facility] Laboratory - Chemistry and C hemistry - challengeOrdered By: Olivier Olmstead on 11-20-2024 AST [Catalytic activity/Vol] 24 U/L 15-37 [facility] Lymphocytes Auto (Unsp spec) [#/Vol]Ordered By: Olivier Olmstead on 11-20-2024 Lymphocytes (Bld) [#/Vol] 1.04 10*3/uL 0.83-4.51 [facility] Lymphocytes/100 WBC Auto (Un sp spec)Ordered By: Olivier Olmstead on 11-20-2024 Lymphocytes/100 WBC (Bld) 17.7 % Low 19-41 [facility] M100.678on 11-20-2024 M100.678 Pending SARS-CoV-2 (COVID 19) Negative INFLUENZA A Negative INFLUENZA B Negative RSV PCR Negative Normal [facility] Comment on above: Performed By: #### L 500.4050, M100.678, L100.0100, M100.2200 ####[facility] [id number] [place], [address] MCV (mean corpuscular volume ) determinationOrdered By: Olivier Olmstead on 11-20-2024 MCV (RBC) [Entitic vol] 95.0 fL 81-99 [facility] Mean corpuscular hemoglobin (MCH) determinationOrdered By: Olivier Olmstead on 11-20-2024 MCH (RBC) [Entitic mass] 32.0 pg 27.0-32.0 [facility] Mean corpuscular hemoglobin concentration (MCHC) determinationOrdered By: Olivier Olmstead on 11-20-2024 MCHC (RBC) [Mass/Vol] 33.7 g/dL 32-36 [facility] Mean platelet volume determi nationOrdered By: Olivier Olmstead on 11-20-2024 Platelet mean volume (Bld) [Entitic vol] 10.9 fL 6.2-12.0 [facility] Monocyte percentageOrdered B y: Olivier Olmstead on 11-20-2024 Monocytes/100 WBC (Bld) 8.5 % 0-10 [facility] Neutrophil percentageOrdered By: Olivier Olmstead on 11-20-2024 Neutrophils/100 WBC (Bld) 69.7 % 47-70 [facility] Nucleated red blood cell per centageOrdered By: Olivier Olmstead 11-20-2024 Nucleated RBC/100 WBC (Bld) [Ratio] 0 % 0-5 [facility] Platelet countOrdered By: Dre Olmstead on 11-20-2024 Platelets (Bld) [#/Vol] 195 10*3/uL 150-450 [facility] Potassium measurementOrdered By: Olivier Olmstead 11-20-2024 Potassium [Moles/Vol] 3.8 mmol/L 3.5-5.1 [facility] RBC Auto (Bld) [#/Vol]Ordere d By: Olivier Olmstead on 11-20-2024 RBC (Bld) [#/Vol] 4.22 10*6/uL 4.2-5.4 [facility] Serum anion gap measurementO rdered By: Olivier Olmstead 11-20-2024 Anion gap [Moles/Vol] 9 mmol/L 5-15 [facility] Serum globulin measurementOr dered By: Olivier Olmstead 11-20-2024 Globulin (S) [Mass/Vol] 3.7 g/dL 2.2-4.2 [facility] Serum or plasma alanine condon otransferase (ALT) measurementOrdered By: Olivier Olmstead on 11-20-2024 ALT [Catalytic activity/Vol] 28 U/L 13-56 [facility] Serum or plasma albumin hesham urement (mass/volume)Ordered By: Olivier Olmstead 11-20-2024 Albumin [Mass/Vol] 3.1 g/dL Low 3.2-5.0 [facility] Serum or plasma alkaline alee sphatase measurementOrdered By: Olivier Olmstead 11-20-2024 ALP [Catalytic activity/Vol] 142 U/L High 45-117 [facility] Serum or plasma calcium hesham urement (mass/volume)Ordered By: Olivier Olmstead 11-20-2024 Calcium [Mass/Vol] 9.3 mg/dL 8.5-10.1 [facility] Serum or plasma creatinine m easurement (mass/volume)Ordered By: Olivier Olmstead 11-20-2024 Creatinine [Mass/Vol] 0.56 mg/dL 0.55-1.02 [facility] Comment on above: The validity of the calculated GFR & GFRAA in patients over 70 years has not been determined. Clinical correlation is essential. Serum or plasma urea nitroge n measurement (mass/volume)Ordered By: Olivier Olmstead 11-20-2024 Urea nitrogen [Mass/Vol] 14 mg/dL 7-18 [facility] Sodium levelOrdered By: Olivier Olmstead 11-20-2024 Sodium [Moles/Vol] 135 mmol/L Low 136-145 [facility] Total proteinOrdered By: Olivier Olmstead 11-20-2024 Protein [Mass/Vol] 6.8 g/dL 6.4-8.2 [facility] Urine cultureOrdered By: Olivier Olmstead 11-20-2024 Bacteria identified Cx Nom (U) Escherichia coli Abnormal [facility] White blood cell (WBC) count Ordered By: Olivier Olmstead 11-20-2024 WBC (Bld) [#/Vol] 5.9 10*3/uL 4.4-11.0 [facility] Clostridioides difficile nuc leic acid assay by PCROrdered By: Olivier Olmstead on 12-24-2023 C. difficile DNA FLORENTIN+probe Ql (Unsp spec) [facility] Lower GI hemoglobin IA Ql (S tl)Ordered By: Olivier Olmstead on 12-24-2023 Stool Occult Blood (MADALYN) Positive [facility] No Panel InformationOrdered By: Olivier Olmstead on 12-24-2023 Miscellaneous Test See comment [facility] Comment on above: SALMONELLA/SHIGELLA SCREEN FINAL REPORTRESULT 1 NO SALMONELLA OR SHIGELLA RECOVEREDCAMPYLOBACTER CULTURE FINAL REPORTRESULT 1 NO CAMPYLOBACTER SPECIES ISOLATEDE COLI SHIGA TOXIN EIA NEGATIVE ___ TESTING PERFORMED AT [facility]. ORIGINAL REPORT ON FILE IN LAB CONTAINS ADDITIONAL TEST SITE INFORMATION. Ova and parasitesOrdered By: Olivier Olmstead on 12-24-2023 Ova and parasites identified LM Nom (Unsp spec) [facility] Stool lactoferrin detection by immunoassayOrdered By: Olivier Olmstead on 12-24-2023 Lactoferrin IA Ql (Stl) [facility] Absolute lymphocyte countOrd ered By: Olivier Olmstead on 12-20-2023 Lymphocytes Auto (Unsp spec) [#/Vol] 1.67 10*3/uL 0.83-4.51 [facility] Automated lymphocyte count a s percentage of total leukocytesOrdered By: Olivier Olmstead on 12-20-2023 Lymphocytes/100 WBC Auto (Unsp spec) 32.2 % 19-41 [facility] Basophil percentageOrdered B y: Olivier Olmstead on 12-20-2023 Basophil percentage < 1.0 mg/dL 0.55-1.02 [facility] Basophils/100 WBC (Bld) 0.4 % 0-1 [facility] Bilirubin [Mass/Vol] 1.00 mg/dL 0.20-1.00 [facility] Comment on above: For patients on eltr ombopag therapy, use of Dimension Excel TBIL is not recommended. Chloride [Moles/Vol] 112 mmol/L 98-107 [facility] Eosinophils/100 WBC (Bld) 3.3 % 0-5 [facility] Glucose [Mass/Vol] 103 mg/dL 74-106 [facility] Comment on above: Fasting Glucose resu lt from 100 to 125 mg/dL suggests IMPAIRED HOMEOSTASIS per A.D.A. criteria. Hemoglobin (Bld) [Mass/Vol] 13.4 g/dL 12.0-15.0 [facility] Monocytes/100 WBC (Bld) 6.4 % 0-10 [facility] Neutrophils (Bld) [#/Vol] 3.0 10*3/uL 2.0-7.7 [facility] Neutrophils/100 WBC (Bld) 57.3 % 47-70 [facility] Potassium [Moles/Vol] 3.8 mmol/L 3.5-5.1 [facility] Protein [Mass/Vol] 6.8 g/dL 6.4-8.2 [facility] Sodium [Moles/Vol] 139 mmol/L 136-145 [facility] WBC (Bld) [#/Vol] 5.2 10*3/uL 4.4-11.0 [facility] Determination of erythrocyte mean corpuscular volume (MCV)Ordered By: Olivier Olmstead on 12-20-2023 MCV (RBC) [Entitic vol] 95.3 fL 81-99 [facility] Erythrocyte distribution wid th ratioOrdered By: Olivier Olmstead 12-20-2023 Erythrocyte distribution width (RBC) [Ratio] 12.8 % 11.6-14.6 [facility] Erythrocyte distribution wid th standard deviationOrdered By: Olivier Olmstead on 12-20-2023 Erythrocyte distribution width (RBC) [Entitic vol] 44.7 fL 35.1-43.9 [facility] Hematocrit Auto (Bld) [Volum e fraction]Ordered By: Olivier Olmstead 12-20-2023 Hematocrit (Bld) [Volume fraction] 40.7 % 37-47 [facility] Immature granulocytes/100 WB C Auto (Bld)Ordered By: Olivier Olmstead on 12-20-2023 Immature granulocytes/100 WBC (Bld) 0.400 % 0.0-0.9 [facility] Comment on above: IG% - Immature Granu locytes (promyelocytes, myelocytes and metamyelocytes) > 1% indicates that a LEFT SHIFT is Present. Laboratory - Chemistry and C hemistry - challengeOrdered By: Olivier Olmstead on 12-20-2023 GFR/1.73 sq M.predicted among non-blacks MDRD (S/P/Bld) [Vol rate/Area] 57.0000 mL/min/{1.73_m2} >60 [facility] Albumin/Globulin [Mass ratio] 1.1 {ratio} 0.9-2.4 [facility] ALP [Catalytic activity/Vol] 147 U/L 45-117 [facility] ALT [Catalytic activity/Vol] 47 U/L 13-56 [facility] CO2 [Moles/Vol] 24.0 mmol/L 21.0-32.0 [facility] Globulin (S) [Mass/Vol] 3.3 g/dL 2.2-4.2 [facility] Urea nitrogen/Creatinine [Mass ratio] 35.1 mg/mg 10-20 [facility] Laboratory - Hematology and Cell countsOrdered By: Olivier Olmstead on 12-20-2023 MCH (RBC) [Entitic mass] 31.4 pg 27.0-32.0 [facility] MCHC (RBC) [Mass/Vol] 32.9 g/dL 32-36 [facility] Nucleated RBC/100 WBC (Bld) [Ratio] 0 % 0-5 [facility] Platelet mean volume (Bld) [Entitic vol] 10.6 fL 6.2-12.0 [facility] Platelets (Bld) [#/Vol] 235 10*3/uL 150-450 [facility] No Panel InformationOrdered By: Olivier Olmstead on 12-20-2023 Estimated GFR (MDRD) Amer 108 mL/min >60 [facility] Comment on above: GFR Calc Estimated GFR (MDRD) Non-Af Amer 89 mL/min >60 [facility] Comment on above: Non- GFR Calc RBC Auto (Bld) [#/Vol]Ordere d By: Olivier Olmstead on 12-20-2023 RBC (Bld) [#/Vol] 4.27 10*6/uL 4.2-5.4 [facility] Serum or plasma calcium hesham urement (mass/volume)Ordered By: Olivier Olmstead on 12-20-2023 Calcium [Mass/Vol] 9.4 mg/dL 8.5-10.1 [facility] Serum or plasma creatinine m easurement (mass/volume)Ordered By: Olivier Olmstead on 12-20-2023 Creatinine [Mass/Vol] 0.68 mg/dL 0.55-1.02 [facility] Comment on above: The validity of the calculated GFR & GFRAA in patients over 70 years has not been determined. Clinical correlation is essential. Serum or plasma urea nitroge n measurement (mass/volume)Ordered By: Olivier Olmstead on 12-20-2023 Urea nitrogen [Mass/Vol] 24 mg/dL 7-18 [facility] Thin prep Papanicolaou smear with manual screeningOrdered By: Olivier Olmstead on 12-20-2023 Thin prep Papanicolaou smear with manual screening 3.5 g/dL 3.2-5.0 [facility] Thin prep Papanicolaou smear with manual screening 40 U/L 15-37 [facility] Thin prep Papanicolaou smear with manual screening 3 5-15 [facility] Absolute lymphocyte countOrd ered By: Olivier Olmstead on 11-05-2023 Lymphocytes Auto (Unsp spec) [#/Vol] 1.74 10*3/uL 0.83-4.51 [facility] Basophil percentageOrdered B y: Olivier Olmstead on 11-05-2023 Basophils/100 WBC (Bld) 0.4 % 0-1 [facility] Bilirubin [Mass/Vol] 0.60 mg/dL 0.20-1.00 [facility] Comment on above: For patients on eltr ombopag therapy, use of Dimension Excel TBIL is not recommended. Chloride [Moles/Vol] 111 mmol/L 98-107 [facility] Eosinophils/100 WBC (Bld) 3.9 % 0-5 [facility] Glucose [Mass/Vol] 98 mg/dL 74-106 [facility] Neutrophils (Bld) [#/Vol] 3.0 10*3/uL 2.0-7.7 [facility] Neutrophils/100 WBC (Bld) 55.6 % 47-70 [facility] Potassium [Moles/Vol] 4.0 mmol/L 3.5-5.1 [facility] Protein [Mass/Vol] 7.0 g/dL 6.4-8.2 [facility] Sodium [Moles/Vol] 141 mmol/L 136-145 [facility] WBC (Bld) [#/Vol] 5.4 10*3/uL 4.4-11.0 [facility] Blood erythrocytes count (nu mber/volume)Ordered By: Olivier Olmstead on 11-05-2023 RBC (Bld) [#/Vol] 4.42 10*6/uL 4.2-5.4 [facility] Blood hemoglobin measurement (mass/volume)Ordered By: Olivier Olmstead on 11-05-2023 Hemoglobin (Bld) [Mass/Vol] 13.7 g/dL 12.0-15.0 [facility] Blood lymphocytes/100 leukoc ytesOrdered By: Olivier Olmstead on 11-05-2023 Lymphocytes/100 WBC (Bld) 32.3 % 19-41 [facility] Blood monocytes/100 leukocyt esOrdered By: Olivier Olmstead on 11-05-2023 Monocytes/100 WBC (Bld) 7.6 % 0-10 [facility] Blood platelet mean volumeOr dered By: Olivier Olmstead on 11-05-2023 Platelet mean volume (Bld) [Entitic vol] 11.2 fL 6.2-12.0 [facility] Determination of erythrocyte mean corpuscular volume (MCV)Ordered By: Olivier Olmstead on 11-05-2023 MCV (RBC) [Entitic vol] 96.2 fL 81-99 [facility] Hematocrit Auto (Bld) [Volum e fraction]Ordered By: Olivier Olmstead on 11-05-2023 Hematocrit (Bld) [Volume fraction] 42.5 % 37-47 [facility] Laboratory - Chemistry and C hemistry - challengeOrdered By: Olivier Olmstead on 11-05-2023 ALP [Catalytic activity/Vol] 141 U/L 45-117 [facility] ALT [Catalytic activity/Vol] 43 U/L 13-56 [facility] CO2 [Moles/Vol] 24.0 mmol/L 21.0-32.0 [facility] Globulin (S) [Mass/Vol] 3.4 g/dL 2.2-4.2 [facility] Urea nitrogen/Creatinine [Mass ratio] 24.9 mg/mg 10-20 [facility] Laboratory - Hematology and Cell countsOrdered By: Olivier Olmstead on 11-05-2023 Erythrocyte distribution width (RBC) [Entitic vol] 45.7 fL 35.1-43.9 [facility] Erythrocyte distribution width (RBC) [Ratio] 12.8 % 11.6-14.6 [facility] Immature granulocytes/100 WBC (Bld) 0.200 % 0.0-0.9 [facility] Comment on above: IG% - Immature Granu locytes (promyelocytes, myelocytes and metamyelocytes) > 1% indicates that a LEFT SHIFT is Present. MCH (RBC) [Entitic mass] 31.0 pg 27.0-32.0 [facility] Nucleated RBC/100 WBC (Bld) [Ratio] 0 % 0-5 [facility] MCHC Auto (RBC) [Mass/Vol]Or dered By: Olivier Olmstead on 11-05-2023 MCHC (RBC) [Mass/Vol] 32.2 g/dL 32-36 [facility] No Panel InformationOrdered By: Olivier Olmstead on 11-05-2023 Estimated GFR (MDRD) Amer 108 mL/min >60 [facility] Comment on above: GFR Calc Estimated GFR (MDRD) Non-Af Amer 89 mL/min >60 [facility] Comment on above: Non- GFR Calc Thyroid Stimulating Hormone (TSH) 0.56 uIU/mL 0.358-3.74 [facility] Vitamin D 25-Hydroxy 48.9 ng/mL [facility] Comment on above: Vitamin D 25(OH) Sta tus Range Deficiency <20 ng/mL (50nmol/L) Insufficiency 20 - 30 ng/mL (50 - 75 nmol/L) Sufficiency 30 - 100 ng/mL (75 - 250 nmol/L) Toxicity >100 ng/mL (>250 nmol/L) Platelets bldOrdered By: Olivier Olmstead on 11-05-2023 Platelets (Bld) [#/Vol] 231 10*3/uL 150-450 [facility] Serum or plasma albumin hesham urement (mass/volume)Ordered By: Olivier Olmstead on 11-05-2023 Albumin [Mass/Vol] 3.6 g/dL 3.2-5.0 [facility] Serum or plasma albumin/glob ulin mass ratioOrdered By: Olivier Olmstead on 11-05-2023 Albumin/Globulin [Mass ratio] 1.1 {ratio} 0.9-2.4 [facility] Serum or plasma calcium hesham urement (mass/volume)Ordered By: Olivier Olmstead on 11-05-2023 Calcium [Mass/Vol] 9.1 mg/dL 8.5-10.1 [facility] Serum or plasma creatinine m easurement (mass/volume)Ordered By: Olivire Olmstead on 11-05-2023 Creatinine [Mass/Vol] 0.68 mg/dL 0.55-1.02 [facility] Comment on above: The validity of the calculated GFR & GFRAA in patients over 70 years has not been determined. Clinical correlation is essential. Serum or plasma urea nitroge n measurement (mass/volume)Ordered By: Olivier Olmstead on 11-05-2023 Urea nitrogen [Mass/Vol] 17 mg/dL 7-18 [facility] Thin prep Papanicolaou smear with manual screeningOrdered By: Olivier Olmstead on 11-05-2023 Thin prep Papanicolaou smear with manual screening 37 U/L 15-37 [facility] Thin prep Papanicolaou smear with manual screening 6 5-15 [facility] Absolute lymphocyte countOrd ered By: Olivier Olmstead on 05-09-2023 Lymphocytes Auto (Unsp spec) [#/Vol] 2.32 10*3/uL 0.83-4.51 [facility] Basophil percentageOrdered B y: Olivier Olmstead on 05-09-2023 Basophils/100 WBC (Bld) 0.6 % 0-1 [facility] Bilirubin [Mass/Vol] 0.80 mg/dL 0.20-1.00 [facility] Comment on above: For patients on eltr ombopag therapy, use of Dimension Excel TBIL is not recommended. Chloride [Moles/Vol] 106 mmol/L 98-107 [facility] Eosinophils/100 WBC (Bld) 3.6 % 0-5 [facility] Glucose [Mass/Vol] 88 mg/dL 74-106 [facility] Neutrophils (Bld) [#/Vol] 3.4 10*3/uL 2.0-7.7 [facility] Neutrophils/100 WBC (Bld) 52.9 % 47-70 [facility] Potassium [Moles/Vol] 4.0 mmol/L 3.5-5.1 [facility] Protein [Mass/Vol] 6.8 g/dL 6.4-8.2 [facility] Sodium [Moles/Vol] 139 mmol/L 136-145 [facility] WBC (Bld) [#/Vol] 6.4 10*3/uL 4.4-11.0 [facility] Blood erythrocytes count (nu mber/volume)Ordered By: Olivier Olmstead on 05-09-2023 RBC (Bld) [#/Vol] 4.53 10*6/uL 4.2-5.4 [facility] Blood hemoglobin measurement (mass/volume)Ordered By: Olivier Olmstead on 05-09-2023 Hemoglobin (Bld) [Mass/Vol] 14.3 g/dL 12.0-15.0 [facility] Blood lymphocytes/100 leukoc ytesOrdered By: Olivier Olmstead on 05-09-2023 Lymphocytes/100 WBC (Bld) 36.1 % 19-41 [facility] Blood monocytes/100 leukocyt esOrdered By: Olivier Olmstead on 05-09-2023 Monocytes/100 WBC (Bld) 6.5 % 0-10 [facility] Blood platelet mean volumeOr dered By: Olivier Olmstead on 05-09-2023 Platelet mean volume (Bld) [Entitic vol] 11.1 fL 6.2-12.0 [facility] Determination of erythrocyte mean corpuscular volume (MCV)Ordered By: Olivier Olmstead on 07-12-2023 MCV (RBC) [Entitic vol] 96.5 fL 81-99 [facility] Hematocrit Auto (Bld) [Volum e fraction]Ordered By: Olivier Olmstead on 05-09-2023 Hematocrit (Bld) [Volume fraction] 43.7 % 37-47 [facility] Laboratory - Chemistry and C hemistry - challengeOrdered By: Olivier Olmstead on 05-09-2023 ALP [Catalytic activity/Vol] 146 U/L 45-117 [facility] ALT [Catalytic activity/Vol] 38 U/L 13-56 [facility] CO2 [Moles/Vol] 26.0 mmol/L 21.0-32.0 [facility] Globulin (S) [Mass/Vol] 3.2 g/dL 2.2-4.2 [facility] Urea nitrogen/Creatinine [Mass ratio] 28.6 mg/mg 10-20 [facility] Laboratory - Hematology and Cell countsOrdered By: Olivier Olmstead on 05-09-2023 Erythrocyte distribution width (RBC) [Entitic vol] 46.5 fL 35.1-43.9 [facility] Erythrocyte distribution width (RBC) [Ratio] 13.1 % 11.6-14.6 [facility] Immature granulocytes/100 WBC (Bld) 0.300 % 0.0-0.9 [facility] Comment on above: IG% - Immature Granu locytes (promyelocytes, myelocytes and metamyelocytes) > 1% indicates that a LEFT SHIFT is Present. MCH (RBC) [Entitic mass] 31.6 pg 27.0-32.0 [facility] Nucleated RBC/100 WBC (Bld) [Ratio] 0 % 0-5 [facility] MCHC Auto (RBC) [Mass/Vol]Or dered By: Olivier Olmstead on 05-09-2023 MCHC (RBC) [Mass/Vol] 32.7 g/dL 32-36 [facility] No Panel InformationOrdered By: Olivier Olmstead on 05-09-2023 Estimated GFR (MDRD) Amer 99 mL/min >60 [facility] Comment on above: GFR Calc Estimated GFR (MDRD) Non-Af Amer 82 mL/min >60 [facility] Comment on above: Non- GFR Calc Thyroid Stimulating Hormone (TSH) 1.19 uIU/mL 0.358-3.74 [facility] Vitamin D 25-Hydroxy 45.4 ng/mL [facility] Comment on above: Vitamin D 25(OH) Sta tus Range Deficiency <20 ng/mL (50nmol/L) Insufficiency 20 - 30 ng/mL (50 - 75 nmol/L) Sufficiency 30 - 100 ng/mL (75 - 250 nmol/L) Toxicity >100 ng/mL (>250 nmol/L) Platelets bldOrdered By: Olivier Olmstead on 05-09-2023 Platelets (Bld) [#/Vol] 276 10*3/uL 150-450 [facility] Serum or plasma albumin hesham urement (mass/volume)Ordered By: Olivier Olmstead on 05-09-2023 Albumin [Mass/Vol] 3.6 g/dL 3.2-5.0 [facility] Serum or plasma albumin/glob ulin mass ratioOrdered By: Olivier Olmstead on 05-09-2023 Albumin/Globulin [Mass ratio] 1.1 {ratio} 0.9-2.4 [facility] Serum or plasma calcium hesham urement (mass/volume)Ordered By: Olivier Olmstead on 05-09-2023 Calcium [Mass/Vol] 9.2 mg/dL 8.5-10.1 [facility] Serum or plasma creatinine m easurement (mass/volume)Ordered By: Olivier Olmstead on 05-09-2023 Creatinine [Mass/Vol] 0.73 mg/dL 0.55-1.02 [facility] Comment on above: The validity of the calculated GFR & GFRAA in patients over 70 years has not been determined. Clinical correlation is essential. Serum or plasma urea nitroge n measurement (mass/volume)Ordered By: Olivier Olmstead on 05-09-2023 Urea nitrogen [Mass/Vol] 21 mg/dL 7-18 [facility] Thin prep Papanicolaou smear with manual screeningOrdered By: Olivier Olmstead on 05-09-2023 Thin prep Papanicolaou smear with manual screening 23 U/L 15-37 [facility] Thin prep Papanicolaou smear with manual screening 7 5-15 [facility] COVID-19 virus antigen assay Ordered By: Olivier Olmstead on 05-02-2023 SARS-CoV-2 (COVID-19) Ag IA.rapid Ql (Resp) Not detected Not Detect [facility] Comment on above: Normal Reference Ran [...] 05-02-2023 Influenza Types A,B Direct FA (MADALYN) [facility] RSV Ag EIAOrdered By: Olivier shin on 05-02-2023 RSV Ag Immune stain Ql (Tiss) [facility] Absolute lymphocyte countOrd ered By: Olivier Olmstead on 11-02-2022 Lymphocytes Auto (Unsp spec) [#/Vol] 1.68 10*3/uL 0.83-4.51 [facility] Basophil percentageOrdered B y: Olivier Olmstead on 11-02-2022 Basophils/100 WBC (Bld) 0.4 % 0-1 [facility] Bilirubin [Mass/Vol] 0.60 mg/dL 0.20-1.00 [facility] Comment on above: For patients on eltr ombopag therapy, use of Dimension Excel TBIL is not recommended. Chloride [Moles/Vol] 106 mmol/L 98-107 [facility] Eosinophils/100 WBC (Bld) 3.0 % 0-5 [facility] Glucose [Mass/Vol] 81 mg/dL 74-106 [facility] Neutrophils (Bld) [#/Vol] 3.0 10*3/uL 2.0-7.7 [facility] Neutrophils/100 WBC (Bld) 57.0 % 47-70 [facility] Potassium [Moles/Vol] 3.9 mmol/L 3.5-5.1 [facility] Protein [Mass/Vol] 6.9 g/dL 6.4-8.2 [facility] Sodium [Moles/Vol] 140 mmol/L 136-145 [facility] WBC (Bld) [#/Vol] 5.3 10*3/uL 4.4-11.0 [facility] Blood erythrocytes count (nu mber/volume)Ordered By: Olivier Olmstead on 11-02-2022 RBC (Bld) [#/Vol] 4.49 10*6/uL 4.2-5.4 [facility] Blood hemoglobin measurement (mass/volume)Ordered By: Olivier Olmstead on 11-02-2022 Hemoglobin (Bld) [Mass/Vol] 14.3 g/dL 12.0-15.0 [facility] Blood lymphocytes/100 leukoc ytesOrdered By: Olivier Olmstead on 11-02-2022 Lymphocytes/100 WBC (Bld) 31.8 % 19-41 [facility] Blood monocytes/100 leukocyt esOrdered By: Olivier Olmstead on 11-02-2022 Monocytes/100 WBC (Bld) 7.4 % 0-10 [facility] Blood platelet mean volumeOr dered By: Olivier Olmstead on 11-02-2022 Platelet mean volume (Bld) [Entitic vol] 10.9 fL 6.2-12.0 [facility] Determination of erythrocyte mean corpuscular volume (MCV)Ordered By: Olivier Olmstead on 11-02-2022 MCV (RBC) [Entitic vol] 98.9 fL 81-99 [facility] Hematocrit Auto (Bld) [Volum e fraction]Ordered By: Olivier Olmstead on 11-02-2022 Hematocrit (Bld) [Volume fraction] 44.4 % 37-47 [facility] Laboratory - Chemistry and C hemistry - challengeOrdered By: Olivier Olmstead on 11-02-2022 ALP [Catalytic activity/Vol] 117 U/L 45-117 [facility] ALT [Catalytic activity/Vol] 44 U/L 13-56 [facility] CO2 [Moles/Vol] 27.0 mmol/L 21.0-32.0 [facility] Globulin (S) [Mass/Vol] 3.3 g/dL 2.2-4.2 [facility] Urea nitrogen/Creatinine [Mass ratio] 16.3 mg/mg 10-20 [facility] Laboratory - Hematology and Cell countsOrdered By: Olivier Olmstead on 11-02-2022 Erythrocyte distribution width (RBC) [Entitic vol] 45.7 fL 35.1-43.9 [facility] Erythrocyte distribution width (RBC) [Ratio] 12.6 % 11.6-14.6 [facility] Immature granulocytes/100 WBC (Bld) 0.400 % 0.0-0.9 [facility] Comment on above: IG% - Immature Granu locytes (promyelocytes, myelocytes and metamyelocytes) > 1% indicates that a LEFT SHIFT is Present. MCH (RBC) [Entitic mass] 31.8 pg 27.0-32.0 [facility] Nucleated RBC/100 WBC (Bld) [Ratio] 0 % 0-5 [facility] MCHC Auto (RBC) [Mass/Vol]Or dered By: Olivier Olmstead on 11-02-2022 MCHC (RBC) [Mass/Vol] 32.2 g/dL 32-36 [facility] No Panel InformationOrdered By: Olivier Olmstead on 11-02-2022 Estimated GFR (MDRD) Amer 90 mL/min >60 [facility] Comment on above: GFR Calc Estimated GFR (MDRD) Non-Af Amer 75 mL/min >60 [facility] Comment on above: Non- GFR Calc Thyroid Stimulating Hormone (TSH) 0.43 uIU/mL 0.358-3.74 [facility] Vitamin D 25-Hydroxy 43.0 ng/mL [facility] Comment on above: Vitamin D 25(OH) Sta tus Range Deficiency <20 ng/mL (50nmol/L) Insufficiency 20 - 30 ng/mL (50 - 75 nmol/L) Sufficiency 30 - 100 ng/mL (75 - 250 nmol/L) Toxicity >100 ng/mL (>250 nmol/L) Platelets bldOrdered By: Olivier Olmstead on 11-02-2022 Platelets (Bld) [#/Vol] 273 10*3/uL 150-450 [facility] Serum or plasma albumin hesham urement (mass/volume)Ordered By: Olivier Olmstead on 11-02-2022 Albumin [Mass/Vol] 3.6 g/dL 3.2-5.0 [facility] Serum or plasma albumin/glob ulin mass ratioOrdered By: Olivier Olmstead on 11-02-2022 Albumin/Globulin [Mass ratio] 1.1 {ratio} 0.9-2.4 [facility] Serum or plasma calcium hesham urement (mass/volume)Ordered By: Olivier Olmstead on 11-02-2022 Calcium [Mass/Vol] 9.2 mg/dL 8.5-10.1 [facility] Serum or plasma creatinine m easurement (mass/volume)Ordered By: Olivier Olmstead on 11-02-2022 Creatinine [Mass/Vol] 0.80 mg/dL 0.55-1.02 [facility] Comment on above: The validity of the calculated GFR & GFRAA in patients over 70 years has not been determined. Clinical correlation is essential. Serum or plasma urea nitroge n measurement (mass/volume)Ordered By: Olivier Olmstead on 11-02-2022 Urea nitrogen [Mass/Vol] 13 mg/dL 7-18 [facility] Thin prep Papanicolaou smear with manual screeningOrdered By: Olivier Ishan on 11-02-2022 Thin prep Papanicolaou smear with manual screening 28 U/L 15-37 [facility] Thin prep Papanicolaou smear with manual screening 7 5-15 [facility] Laboratory - Microbiology an d Antimicrobial susceptibilityon 05-30-2022 SARS-CoV-2 (COVID-19) RNA FLORENTIN+probe Ql (Unsp spec) Not detected Not Detect [facility] Work Phone: Comment on above: Normal [...] Auto (Unsp spec) [#/Vol] 1.65 10*3/uL 0.83-4.51 [facility] Work Phone: Basophil percentageon 2021 Basophils/100 WBC (Bld) 0.4 % 0-1 [facility] Work Phone: Bilirubin [Mass/Vol] 0.40 mg/dL 0.20-1.00 [facility] Work Phone: Comment on above: For patients on eltr ombopag therapy, use of Dimension Excel TBIL is not recommended. Chloride [Moles/Vol] 109 mmol/L 98-107 [facility] Work Phone: Eosinophils/100 WBC (Bld) 4.2 % 0-5 [facility] Work Phone: Glucose [Mass/Vol] 98 mg/dL 74-106 [facility] Work Phone: Neutrophils (Bld) [#/Vol] 3.3 10*3/uL 2.0-7.7 [facility] Work Phone: Neutrophils/100 WBC (Bld) 58.7 % 47-70 [facility] Work Phone: Potassium [Moles/Vol] 4.1 mmol/L 3.5-5.1 [facility] Work Phone: Protein [Mass/Vol] 6.6 g/dL 6.4-8.2 [facility] Work Phone: Sodium [Moles/Vol] 141 mmol/L 136-145 [facility] Work Phone: WBC (Bld) [#/Vol] 5.7 10*3/uL 4.4-11.0 [facility] Work Phone: Blood erythrocytes count (nu mber/volume)on 04-27-2022 RBC (Bld) [#/Vol] 4.12 10*6/uL 4.2-5.4 [facility] Work Phone: Blood hemoglobin measurement (mass/volume)on 04-27-2022 Hemoglobin (Bld) [Mass/Vol] 13.4 g/dL 12.0-15.0 [facility] Work Phone: Blood lymphocytes/100 leukoc yteson 04-27-2022 Lymphocytes/100 WBC (Bld) 29.1 % 19-41 [facility] Work Phone: Blood monocytes/100 leukocyt eson 04-27-2022 Monocytes/100 WBC (Bld) 7.4 % 0-10 [facility] Work Phone: Blood platelet mean volumeon 04-27-2022 Platelet mean volume (Bld) [Entitic vol] 10.5 fL 6.2-12.0 [facility] Work Phone: Determination of erythrocyte mean corpuscular volume (MCV)on 04-27-2022 MCV (RBC) [Entitic vol] 97.6 fL 81-99 [facility] Work Phone: Hematocrit Auto (Bld) [Volum e fraction]on 04-27-2022 Hematocrit (Bld) [Volume fraction] 40.2 % 37-47 [facility] Work Phone: Laboratory - Chemistry and C hemistry - challengeon 04-27-2022 ALP [Catalytic activity/Vol] 103 U/L 45-117 [facility] Work Phone: ALT [Catalytic activity/Vol] 24 U/L 13-56 [facility] Work Phone: CO2 [Moles/Vol] 26.0 mmol/L 21.0-32.0 [facility] Work Phone: [phone] Globulin (S) [Mass/Vol] 3.0 g/dL 2.2-4.2 [facility] Work Phone: Urea nitrogen/Creatinine [Mass ratio] 26.5 mg/mg 10-20 [facility] Work Phone: Laboratory - Hematology and Cell countson 04-27-2022 Erythrocyte distribution width (RBC) [Entitic vol] 46.4 fL 35.1-43.9 [facility] Work Phone: Erythrocyte distribution width (RBC) [Ratio] 13.0 % 11.6-14.6 [facility] Work Phone: Immature granulocytes/100 WBC (Bld) 0.200 % 0.0-0.9 [facility] Work Phone: Comment on above: IG% - Immature Granu locytes (promyelocytes, myelocytes and metamyelocytes) > 1% indicates that a LEFT SHIFT is Present. MCH (RBC) [Entitic mass] 32.5 pg 27.0-32.0 [facility] Work Phone: Nucleated RBC/100 WBC (Bld) [Ratio] 0 % 0-5 [facility] Work Phone: MCHC Auto (RBC) [Mass/Vol]on 04-27-2022 MCHC (RBC) [Mass/Vol] 33.3 g/dL 32-36 [facility] Work Phone: No Panel Informationon 04-27 Estimated GFR (MDRD) Amer 91 mL/min >60 [facility] Work Phone: Comment on above: GFR Calc Estimated GFR (MDRD) Non-Af Amer 76 mL/min >60 [facility] Work Phone: Comment on above: Non- GFR Calc Thyroid Stimulating Hormone (TSH) 0.59 uIU/mL 0.358-3.74 [facility] Work Phone: Vitamin D 25-Hydroxy 34.2 ng/mL [facility] Work Phone: Comment on above: Vitamin D 25(OH) Sta tus Range Deficiency <20 ng/mL (50nmol/L) Insufficiency 20 - 30 ng/mL (50 - 75 nmol/L) Sufficiency 30 - 100 ng/mL (75 - 250 nmol/L) Toxicity >100 ng/mL (>250 nmol/L) Platelets bldon 04-27-2022 Platelets (Bld) [#/Vol] 247 10*3/uL 150-450 [facility] Work Phone: Serum or plasma albumin hesham urement (mass/volume)on 04-27-2022 Albumin [Mass/Vol] 3.6 g/dL 3.2-5.0 [facility] Work Phone: Serum or plasma albumin/glob ulin mass ratioon 04-27-2022 Albumin/Globulin [Mass ratio] 1.2 {ratio} 0.9-2.4 [facility] Work Phone: Serum or plasma calcium hesham urement (mass/volume)on 04-27-2022 Calcium [Mass/Vol] 9.2 mg/dL 8.5-10.1 [facility] Work Phone: Serum or plasma creatinine m easurement (mass/volume)on 04-27-2022 Creatinine [Mass/Vol] 0.79 mg/dL 0.55-1.02 [facility] Work Phone: Comment on above: The validity of the calculated GFR & GFRAA in patients over 70 years has not been determined. Clinical correlation is essential. Serum or plasma urea nitroge n measurement (mass/volume)on 04-27-2022 Urea nitrogen [Mass/Vol] 21 mg/dL 7-18 [facility] Work Phone: Thin prep Papanicolaou smear with manual screeningon 04-27-2022 Thin prep Papanicolaou smear with manual screening 15 U/L 15-37 [facility] Work Phone: Thin prep Papanicolaou smear with manual screening 6 5-15 [facility] Work Phone: Absolute lymphocyte counton 10-26-2021 Lymphocytes Auto (Unsp spec) [#/Vol] 1.64 10*3/uL 0.83-4.51 [facility] Work Phone: Basophil percentageon 2020 Bilirubin [Mass/Vol] 0.30 mg/dL 0.20-1.00 [facility] Work Phone: Comment on above: For patients on eltr ombopag therapy, use of Dimension Excel TBIL is not recommended. Chloride [Moles/Vol] 108 mmol/L 98-107 [facility] Work Phone: Eosinophils/100 WBC (Bld) 4.2 % 0-5 [facility] Work Phone: Glucose [Mass/Vol] 90 mg/dL 74-106 [facility] Work Phone: Comment on above: Please note revised GLUCOSE reference range effective 2017. Neutrophils (Bld) [#/Vol] 3.0 10*3/uL 2.0-7.7 [facility] Work Phone: Potassium [Moles/Vol] 4.3 mmol/L 3.5-5.1 [facility] Work Phone: Protein [Mass/Vol] 6.9 g/dL 6.4-8.2 [facility] Work Phone: Sodium [Moles/Vol] 141 mmol/L 136-145 [facility] Work Phone: WBC (Bld) [#/Vol] 5.3 10*3/uL 4.4-11.0 [facility] Work Phone: Blood erythrocytes count (nu mber/volume)on 10-26-2021 RBC (Bld) [#/Vol] 4.19 10*6/uL 4.2-5.4 [facility] Work Phone: Blood hemoglobin measurement (mass/volume)on 10-26-2021 Hemoglobin (Bld) [Mass/Vol] 13.3 g/dL 12.0-15.0 [facility] Work Phone: [phone] Blood lymphocytes/100 leukoc yteson 10-26-2021 Lymphocytes/100 WBC (Bld) 31.1 % 19-41 [facility] Work Phone: Blood monocytes/100 leukocyt eson 10-26-2021 Monocytes/100 WBC (Bld) 7.4 % 0-10 [facility] Work Phone: Blood platelet mean volumeon 10-26-2021 Platelet mean volume (Bld) [Entitic vol] 10.7 fL 6.2-12.0 [facility] Work Phone: Determination of erythrocyte mean corpuscular volume (MCV)on 10-26-2021 MCV (RBC) [Entitic vol] 96.2 fL 81-99 [facility] Work Phone: Hematocrit Auto (Bld) [Volum e fraction]on 10-26-2021 Hematocrit (Bld) [Volume fraction] 40.3 % 37-47 [facility] Work Phone: Laboratory - Chemistry and C hemistry - challengeon 10-26-2021 ALP [Catalytic activity/Vol] 140 U/L 45-117 [facility] Work Phone: ALT [Catalytic activity/Vol] 34 U/L 13-56 [facility] Work Phone: CO2 [Moles/Vol] 27.0 mmol/L 21.0-32.0 [facility] Work Phone: Globulin (S) [Mass/Vol] 3.4 g/dL 2.2-4.2 [facility] Work Phone: Urea nitrogen/Creatinine [Mass ratio] 22.1 mg/mg 10-20 [facility] Work Phone: Laboratory - Hematology and Cell countson 10-26-2021 Basophils/100 WBC (Unsp spec) 0.6 % 0-1 [facility] Work Phone: [phone] Erythrocyte distribution width (RBC) [Entitic vol] 45.4 fL 35.1-43.9 [facility] Work Phone: Erythrocyte distribution width (RBC) [Ratio] 12.8 % 11.6-14.6 [facility] Work Phone: Immature granulocytes/100 WBC (Bld) 0.200 % 0.0-0.9 [facility] Work Phone: Comment on above: IG% - Immature Granu locytes (promyelocytes, myelocytes and metamyelocytes) > 1% indicates that a LEFT SHIFT is Present. MCH (RBC) [Entitic mass] 31.7 pg 27.0-32.0 [facility] Work Phone: Neutrophils/100 WBC (Bld) 56.5 % 47-70 [facility] Work Phone: Nucleated RBC/100 WBC (Bld) [Ratio] 0 % 0-5 [facility] Work Phone: MCHC Auto (RBC) [Mass/Vol]on 10-26-2021 MCHC (RBC) [Mass/Vol] 33.0 g/dL 32-36 [facility] Work Phone: No Panel Informationon 10-26 Estimated GFR (MDRD) Amer 109 mL/min >60 [facility] Work Phone: Comment on above: GFR Calc Estimated GFR (MDRD) Non-Af Amer 90 mL/min >60 [facility] Work Phone: Comment on above: Non- GFR Calc Thyroid Stimulating Hormone (TSH) 0.88 uIU/mL 0.358-3.74 [facility] Work Phone: Vitamin D 25-Hydroxy 42.0 ng/mL [facility] Work Phone: Comment on above: Vitamin D 25(OH) Sta tus Range Deficiency <20 ng/mL (50nmol/L) Insufficiency 20 - 30 ng/mL (50 - 75 nmol/L) Sufficiency 30 - 100 ng/mL (75 - 250 nmol/L) Toxicity >100 ng/mL (>250 nmol/L) Platelets bldon 10-26-2021 Platelets (Bld) [#/Vol] 246 10*3/uL 150-450 [facility] Work Phone: Serum or plasma albumin hesham urement (mass/volume)on 10-26-2021 Albumin [Mass/Vol] 3.5 g/dL 3.2-5.0 [facility] Work Phone: Serum or plasma albumin/glob ulin mass ratioon 10-26-2021 Albumin/Globulin [Mass ratio] 1.0 {ratio} 0.9-2.4 [facility] Work Phone: Serum or plasma calcium hesham urement (mass/volume)on 10-26-2021 Calcium [Mass/Vol] 9.0 mg/dL 8.5-10.1 [facility] Work Phone: Serum or plasma creatinine m easurement (mass/volume)on 10-26-2021 Creatinine [Mass/Vol] 0.68 mg/dL 0.55-1.02 [facility] Work Phone: Comment on above: The validity of the calculated GFR & GFRAA in patients over 70 years has not been determined. Clinical correlation is essential. Serum or plasma urea nitroge n measurement (mass/volume)on 10-26-2021 Urea nitrogen [Mass/Vol] 15 mg/dL 7-18 [facility] Work Phone: Thin prep Papanicolaou smear with manual screeningon 10-26-2021 Thin prep Papanicolaou smear with manual screening 24 U/L 15-37 [facility] Work Phone: Thin prep Papanicolaou smear with manual screening 6 5-15 [facility] Work Phone: Office Visiton 05-18-2017 Documentation of current medications (procedure) Done Invalid Interpretation Code [place] [employer] Work Phone: [phone] Fall risk assessment Yes Invalid Interpretation Code [place] [employer] Work Phone: [phone] Clinical Lists Update: Prelo box person 05-15-2017 Left ventricular Ejection fraction 60 % Invalid Interpretation Code [place] [employer] Work Phone: [phone] Clinical Lists Update: Prelo box person 09-18-2016 Cholesterol 205 mg/dL Invalid Interpretation Code [place] [employer] Work Phone: [phone] HDL Cholesterol 59 mg/dL Invalid Interpretation Code [place] [employer] Phone: [phone] LDL Cholesterol 120 mg/dL Invalid Interpretation Code [place] [employer] Work Phone: [phone] Triglyceride 132 mg/dL Invalid Interpretation Code [employer] Work Phone: [phone] Lab Report: Basic Metabolic Profile (BMP)on 06-01-2016 Anion gap 7 mmol/L Invalid Interpretation Code 5-15 [facility] Work Phone: [phone] BUN/Creatinine Ratio 28.0 RATIO High 10-[address] [facility] [address] [email or web address] Work Phone: [phone] Calcium 9.2 mg/dL Invalid Interpretation Code 8.5-10.1 [employer] Work Phone: [phone] Chloride 108 mmol/L High 98-107 [place] [employer] Work Phone: [phone] CO2 26.0 mmol/L Invalid Interpretation Code 21.0-32.0 [facility] Work Phone: [phone] Creatinine 0.61 mg/dL Invalid Interpretation Code 0.55-1.20 [place] [employer] Work Phone: [phone] eGFR (non-black) 104 mL/min/{1.73_m2} Invalid Interpretation Code >60 [facility] Work Phone: [phone] eGFR (non-black) 126 mL/min/{1.73_m2} Invalid Interpretation Code >60 [place] [employer] Work Phone: [phone] Glucose 86 mg/dL Invalid Interpretation Code 70-110 [place] [employer] Work Phone: [phone] Glucose mass conc 86 mg/dL Invalid Interpretation Code 70-110 [facility] Work Phone: [phone] Potassium molar conc 4.3 mmol/L Invalid Interpretation Code 3.5-5.1 [place] [employer] Work Phone: [phone] Sodium 141 mmol/L Invalid Interpretation Code 136-145 [employer] Work Phone: [phone] Urea nitrogen 17 mg/dL Invalid Interpretation Code 7-18 [place] [employer] Work Phone: [phone] Office Visit: [facility] 06-01-20 16 Dietary management education, guidance, and counseling (procedure) yes Invalid Interpretation Code [employer] Work Phone: [phone] Documentation of current medications (procedure) Done Invalid Interpretation Code [employer] Work Phone: [phone] Clinical Lists Update: Prelo box person 04-21-2016 Alanine aminotransferase (ALT) 22 U/L Invalid Interpretation Code [employer] Work Phone: [phone] Albumin 4.1 g/dL Invalid Interpretation Code [employer] Work Phone: [phone] Alkaline phosphatase (ALP) 116 U/L Invalid Interpretation Code [employer] Work Phone: [phone] Aspartate aminotransferase (AST) 29 U/L Invalid Interpretation Code [employer] Work Phone: [phone] Bilirubin (total) 0.3 mg/dL Invalid Interpretation Code [employer] Work Phone: [phone] Erythrocyte distribution width Auto Ratio (RBC) 13.2 % Invalid Interpretation Code [employer] Work Phone: [phone] Erythrocytes (RBC) 4.33 10*6/uL Invalid Interpretation Code [employer] Work Phone: [phone] Hematocrit (HCT) 42.4 % Invalid Interpretation Code [employer] Work Phone: [phone] Hemoglobin mass conc (Bld) 14.0 g/dL Invalid Interpretation Code [employer] Work Phone: [phone] MCH 32.3 pg Invalid Interpretation Code [employer] Work Phone: [phone] MCHC mass conc (RBC) 33.0 g/dL Invalid Interpretation Code [employer] Work Phone: [phone] MCV 97.9 fL Invalid Interpretation Code [employer] Work Phone: [phone] Platelets 254 10*3/mm3 Invalid Interpretation Code [employer] Work Phone: [phone] PMV by Abran 11.5 fL Invalid Interpretation Code [employer] Work Phone: [phone] Protein 7.0 g/dL Invalid Interpretation Code [employer] Work Phone: [phone] Thyroid stimulating hormone (TSH) 4.650 u[iU]/mL Invalid Interpretation Code [employer] Work Phone: [phone] WBC (Leukocytes) 5.98 10*3/uL Invalid Interpretation Code [employer] Phone: [phone] Office Visiton 12-01-2015 Tobacco use CPHS Former smoker Invalid Interpretation Code [employer] Work Phone: [phone] Replaced Document: Christin Ziegler CG Observationson 12-01-2015 BUN (urea nitrogen) Atrial Rhythm P:QRS - 1:1, Abnormal P axis, H Rate 61-Left bundle branch block. ABNORMAL Invalid Interpretation Code [employer] Work Phone: [phone] EKG QRS axis -50 deg Invalid Interpretation Code [employer] Work Phone: [phone] GE use only - for [employer] import when terms are not otherwise specified 449 ms Invalid Interpretation Code [employer] Phone: [phone] P Herron -90 deg Invalid Interpretation Code [employer] Phone: [phone] P wave axis, electrocardiogram -90 deg Invalid Interpretation Code [employer] Phone: [phone] OR Interval 182 ms Invalid Interpretation Code [employer] Work Phone: [phone] OR interval, electrocardiogram 182 ms Invalid Interpretation Code [employer] Phone: [phone] Pulse (Heart Rate) 61 /min Invalid Interpretation Code [employer] Phone: [phone] QRS axis, electrocardiogram -50 deg Invalid Interpretation Code [employer] Phone: [phone] QRS Duration 132 ms Invalid Interpretation Code [employer] Phone: [phone] QRS duration, electrocardiogram 132 ms Invalid Interpretation Code [employer] Work Phone: [phone] QT Interval new path ms Invalid Interpretation Code [employer] Work Phone: [phone] QT interval, electrocardiogram new path ms Invalid Interpretation Code [employer] Phone: QTc Valentino 449 ms Invalid Interpretation Code [employer] Phone: [phone] T Herron -1 deg Invalid Interpretation Code [employer] Work Phone: [phone] T wave axis, electrocardiogram -1 deg Invalid Interpretation Code [employer] Phone: [phone] Clinical Lists Update: Prelo box person 05-06-2015 very low density lipoproteins 14 mg/dL Invalid Interpretation Code [facility] Work Phone: Office Visit: [facility] 04-21-20 15 General cardiovascular disease 10Y risk [#] Kerk[place]oven.D'Ashley 8 % Invalid Interpretation Code [facility] Work Phone: Office Visiton 10-05-2014 cardiac risk group B Invalid Interpretation Code [facility] Work Phone: Replaced Document: Christin Ziegler CG Observationson 06-04-2013 Pulse (Heart Rate) 437 ms Invalid Interpretation Code [facility] Work Phone: Lab Reporton 07-22-2012 Bilirubin (direct) 0.15 mg/dL Invalid Interpretation Code [facility] Work Phone: Lab Reporton 03-07-2012 Albumin/Globulin Ratio 1.2 {ratio} Invalid Interpretation Code [facility] Work Phone: Globulin 3.1 g/dL Invalid Interpretation Code [facility] Work Phone: MCHC mass conc (RBC) 34.5 % Invalid Interpretation Code [facility] Work Phone: Culture, urine Bacteria identified Cx Nom (U) Escherichia coli [facility] Work Phone: No Panel Information Influenza Types A,B Direct FA (MADALYN) [facility] Work Phone: Vital Signs Date Time Vital Sign Value Performing Clinician Faci lity 08-17-2025 07:51-0400 Body height 160.[address] Olivier Olmstead MD Work Phone: [facility] 08-17-2025 07:51-0400 Body mass index (BMI) [Ratio] 30.8 kg/m2 Dr. Olivier Olmstead MD Work Phone: [facility] 08-17-2025 07:51-0400 Body weight 78.[address] Olivier Olmstead MD Work Phone: [facility] 08-17-2025 07:51-0400 Diastolic blood pressure 74 mm[Hg] Dr. Olivier Olmstead MD Work Phone: [phone] [place] [address] 08-17-2025 07:51-0400 Heart rate 83 /min Dr. Olivier Olmstead MD Work Phone: [phone] [place] [address] 08-17-2025 07:51-0400 Respiratory rate 18 /min Dr. Olivier Olmstead MD Work Phone: [phone] [place] [address] 08-17-2025 07:51-0400 SaO2% (BldA) [Mass fraction] 95 % Dr. Olivier Olmstead MD Work Phone: [phone] [place] [address] 08-17-2025 07:51-0400 Systolic blood pressure 139 mm[Hg] Dr. Olivier Olmstead MD Work Phone: [phone] [place] [address] 08-07-2025 09:09-0400 Body weight 77.[address] Olivier Olmstead MD Work Phone: [phone] [place] [address] 08-07-2025 09:09-0400 Diastolic blood pressure 76 mm[Hg] Dr. Olivier Olmstead MD Work Phone: [phone] [place] [address] 08-07-2025 09:09-0400 Heart rate 67 /min Dr. Olivier Olmstead MD Work Phone: [phone] [place] [address] 08-07-2025 09:09-0400 Respiratory rate 20 /min Dr. Olivier Olmstead MD Work Phone: [phone] [place] [address] 08-07-2025 09:09-0400 Systolic blood pressure 154 mm[Hg] Dr. Oilvier Olmstead MD Work Phone: [phone] [address] [place] [address] 07-29-2025 11:13-0400 Body height 160.[address] Olivier Olmstead MD Work Phone: 1(236)945-357362 [place] [address] 07-29-2025 11:13-0400 Body weight 78.[address] Olivier Olmstead MD Work Phone: 7(519)220-920762 [place] [address] 07-28-2025 11:47-0400 Body mass index (BMI) [Ratio] 30.4 kg/m2 Dr. Olivier Olmstead MD Work Phone: 1(142)532-271068 [place] [address] 07-21-2025 07:09-0400 Body mass index (BMI) [Ratio] 30.4 kg/m2 Dr. Olivier Olmstead MD Work Phone: 6(580)375-471168 [place] [address] 07-21-2025 07:09-0400 Body weight 78.[address] Olivier Olmstead MD Work Phone: 2(898)987-721862 [place] [address] 07-21-2025 07:09-0400 Diastolic blood pressure 56 mm[Hg] Dr. Olivier Olmstead MD Work Phone: 0(101)303-347062 [place] [address] 07-21-2025 07:09-0400 Heart rate 99 /min Dr. Olivier Olmstead MD Work Phone: 8(316)634-933362 [place] [address] 07-21-2025 07:09-0400 Respiratory rate 18 /min Dr. Olivier Olmstead MD Work Phone: 7(778)250-650962 [place] [address] 07-21-2025 07:09-0400 SaO2% (BldA) [Mass fraction] 94 % Dr. Olivier Olmstead MD Work Phone: 4(260)237-813662 [place] [address] 07-21-2025 07:09-0400 Systolic blood pressure 108 mm[Hg] Dr. Olivier Olmstead MD Work Phone: 1(453)172-889962 [place] [address] 07-03-2025 06:59-0400 Body mass index (BMI) [Ratio] 29.4 kg/m2 Dr. Olivier Olmstead MD Work Phone: 3(615)665-331562 [place] [address] 07-03-2025 06:59-0400 Body weight 75.[address] Olivier Olmstead MD Work Phone: 2(443)863-699862 [place] [address] 07-03-2025 06:59-0400 Diastolic blood pressure 80 mm[Hg] Dr. Olivier Olmstead MD Work Phone: 9(442)258-658962 [place] [address] 07-03-2025 06:59-0400 Heart rate 112 /min Dr. Olivier Olmstead MD Work Phone: 6(877)393-365162 [place] [address] 07-03-2025 06:59-0400 Respiratory rate 18 /min Dr. Olivier Olmstead MD Work Phone: 7(120)473-081168 [place] [address] 07-03-2025 06:59-0400 SaO2% (BldA) [Mass fraction] 93 % Dr. Olivier Olmstead MD Work Phone: 0(111)800-625068 [place] [address] 07-03-2025 06:59-0400 Systolic blood pressure 126 mm[Hg] Dr. Olivier Olmstead MD Work Phone: 8(366)453-097462 [place] [address] 06-28-2025 11:45-0400 Diastolic blood pressure 75 mm[Hg] Dr. Olivier Olmstead MD Work Phone: 8(949)562-119862 [place] [address] 06-28-2025 11:45-0400 Heart rate 93 /min Dr. Olivier Olmstead MD Work Phone: 9(447)149-651562 [place] [address] 06-28-2025 11:45-0400 Systolic blood pressure 111 mm[Hg] Dr. Olivier Olmstead MD Work Phone: 5(190)762-443462 [place] [address] 06-28-2025 09:00-0400 Body temperature 97.7 [degF] Dr. Olivier Olmstead MD Work Phone: 3(483)001-931962 [place] [address] 06-28-2025 09:00-0400 Respiratory rate 18 /min Dr. Olivier Olmstead MD Work Phone: 0(190)626-471262 [place] [address] 06-28-2025 09:00-0400 SaO2% (BldA) [Mass fraction] 95 % Dr. Olivier Olmstead MD Work Phone: 4(279)910-873662 [place] [address] 06-28-2025 03:49-0400 Body mass index (BMI) [Ratio] 29.1 kg/m2 Dr. Olivier Olmstead MD Work Phone: 7(228)367-204862 [place] [address] 06-28-2025 03:49-0400 Body weight 74.[address] Olivier Olmstead MD Work Phone: 3(919)077-964662 [place] [address] 06-24-2025 10:52-0400 Body height 160.[address] Olivier Olmstead MD Work Phone: 2(926)060-465262 [place] [address] 06-24-2025 08:18-0400 Inhaled oxygen flow rate 2 L/min Dr. Olivier Olmstead MD Work Phone: 0(356)665-566762 [place] [address] 06-23-2025 20:25-0400 Diastolic blood pressure 87 mm[Hg] Dr. Olivier Olmstead MD Work Phone: [facility] 06-23-2025 20:25-0400 Heart rate 113 /min Dr. Olivier Olmstead MD Work Phone: [facility] 06-23-2025 20:25-0400 Respiratory rate 18 /min Dr. Olivier Olmstead MD Work Phone: [facility] 06-23-2025 20:25-0400 SaO2% (BldA) [Mass fraction] 94 % Dr. Olivier Olmstead MD Work Phone: [facility] 06-23-2025 20:25-0400 Systolic blood pressure 147 mm[Hg] Dr. Olivier Olmstead MD Work Phone: [facility] 06-23-2025 19:41-0400 Body temperature 98.3 [degF] Dr. Olivier Olmstead MD Work Phone: 3(571)551-005068 [place] [address] 06-23-2025 16:07-0400 Body mass index (BMI) [Ratio] 29.5 kg/m2 Dr. Olivier Olmstead MD Work Phone: 8(721)309-727468 [place] [address] 06-23-2025 16:07-0400 Body weight 75.[address] Olivier Olmstead MD Work Phone: [facility] 06-23-2025 13:48-0400 Body height 160.[address] Olivier Olmstead MD Work Phone: [facility] 06-08-2025 02:42-0400 Body temperature 98 [degF] Dr. Olivier Olmstead MD Work Phone: [facility] 06-08-2025 02:42-0400 Diastolic blood pressure 92 mm[Hg] Dr. Olivier Olmstead MD Work Phone: [facility] 06-08-2025 02:42-0400 Heart rate 118 /min Dr. Olivier Olmstead MD Work Phone: [facility] 06-08-2025 02:42-0400 Respiratory rate 18 /min Dr. Olivier Olmstead MD Work Phone: 5(342)820-140162 [place] [address] 06-08-2025 02:42-0400 SaO2% (BldA) [Mass fraction] 94 % Dr. Olivier Olmstead MD Work Phone: 2(173)158-532062 [place] [address] 06-08-2025 02:42-0400 Systolic blood pressure 124 mm[Hg] Dr. Olivier Olmstead MD Work Phone: 8(354)371-704162 [place] [address] 06-07-2025 20:05-0400 Body mass index (BMI) [Ratio] 38.4 kg/m2 Dr. Olivier Olmstead MD Work Phone: 7(036)505-742162 [place] [address] 06-07-2025 20:05-0400 Body weight 98.[address] Olivier Olmstead MD Work Phone: 1(739)655-388162 [place] [address] 06-07-2025 20:03-0400 Body height 160.[address] Olivier Olmstead MD Work Phone: 5(375)821-663062 [place] [address] 05-18-2025 07:19-0400 Body height 160.[address] Olivier Olmstead MD Work Phone: 1(709)467-921362 [place] [address] 05-18-2025 07:19-0400 Body mass index (BMI) [Ratio] 29.9 kg/m2 Dr. Olivier Olmstead MD Work Phone: 1(712)340-682962 [place] [address] 05-18-2025 07:19-0400 Body weight 76.[address] Olivier Olmstead MD Work Phone: 3(961)899-623062 [place] [address] 05-18-2025 07:19-0400 Diastolic blood pressure 83 mm[Hg] Dr. Olivier Olmstead MD Work Phone: 6(669)301-256262 [place] [address] 05-18-2025 07:19-0400 Heart rate 116 /min Dr. Olivier Olmstead MD Work Phone: 6(227)449-142062 [place] [address] 05-18-2025 07:19-0400 Respiratory rate 18 /min Dr. Olivier Olmstead MD Work Phone: 9(591)417-802162 [place] [address] 05-18-2025 07:19-0400 SaO2% (BldA) [Mass fraction] 95 % Dr. Olivier Olmstead MD Work Phone: 7(361)710-157568 [place] [address] 05-18-2025 07:19-0400 Systolic blood pressure 123 mm[Hg] Dr. Olivier Olmstead MD Work Phone: 9(164)472-385862 [place] [address] 04-20-2025 14:39-0400 Body temperature 97.6 [degF] Dr. Olivier Olmstead MD Work Phone: 0(810)618-831662 [place] [address] 04-20-2025 14:39-0400 Diastolic blood pressure 87 mm[Hg] Dr. Olivier Olmstead MD Work Phone: 8(127)955-608262 [place] [address] 04-20-2025 14:39-0400 Heart rate 88 /min Dr. Olivier Olmstead MD Work Phone: 2(874)287-583162 [place] [address] 04-20-2025 14:39-0400 Respiratory rate 16 /min Dr. Olivier Olmstead MD Work Phone: 5(732)895-794062 [place] [address] 04-20-2025 14:39-0400 SaO2% (BldA) [Mass fraction] 96 % Dr. Olivier Olmstead MD Work Phone: 9(929)629-095262 [place] [address] 04-20-2025 14:39-0400 Systolic blood pressure 149 mm[Hg] Dr. Olviier Olmstead MD Work Phone: 3(678)655-749662 [place] [address] 04-20-2025 09:40-0400 Body height 160.[address] Olivier Olmstead MD Work Phone: 3(424)591-490262 [place] [address] 12-25-2024 11:27-0500 Body height 160.[address] Olivier Olmstead MD Work Phone: 7(059)304-469362 [place] [address] 12-25-2024 11:27-0500 Body mass index (BMI) [Ratio] 29.7 kg/m2 Dr. Olivier Olmstead MD Work Phone: 4(150)362-022462 [place] [address] 12-25-2024 11:27-0500 Body weight 76.[address] Olivier Olmstead MD Work Phone: 1(793)054-458562 [place] [address] 12-25-2024 11:27-0500 Diastolic blood pressure 82 mm[Hg] Dr. Olivier Olmstead MD Work Phone: 4(458)748-869562 [place] [address] 12-25-2024 11:27-0500 Heart rate 84 /min Dr. Olivier Olmstead MD Work Phone: 3(828)852-065962 [place] [address] 12-25-2024 11:27-0500 Respiratory rate 18 /min Dr. Olivier Olmstead MD Work Phone: 4(855)341-318662 [place] [address] 12-25-2024 11:27-0500 SaO2% (BldA) [Mass fraction] 94 % Dr. Olivier Olmstead MD Work Phone: 1(605)696-932162 [place] [address] 12-25-2024 11:27-0500 Systolic blood pressure 137 mm[Hg] Dr. Olivier Olmstead MD Work Phone: 3(152)350-056162 [place] [address] 11-21-2024 13:53-0500 Body temperature 98 [degF] Dr. Olivier Olmstead MD Work Phone: 3(180)808-888562 [place] [address] 11-21-2024 13:53-0500 Diastolic blood pressure 56 mm[Hg] Dr. Olivier Olmstead MD Work Phone: 9(728)173-839262 [place] [address] 11-21-2024 13:53-0500 Heart rate 66 /min Dr. Olivier Olmstead MD Work Phone: 3(798)843-701262 [place] [address] 11-21-2024 13:53-0500 Respiratory rate 16 /min Dr. Olivier Olmstead MD Work Phone: 4(075)536-924362 [place] [address] 11-21-2024 13:53-0500 SaO2% (BldA) [Mass fraction] 96 % Dr. Olivier Olmstead MD Work Phone: 0(834)479-973562 [place] [address] 11-21-2024 13:53-0500 Systolic blood pressure 137 mm[Hg] Dr. Olivier Olmstead MD Work Phone: 4(667)814-019062 [place] [address] 11-21-2024 11:30-0500 Body mass index (BMI) [Ratio] 29.7 kg/m2 Dr. Olivier Olmstead MD Work Phone: 6(241)557-846962 [place] [address] 11-21-2024 11:30-0500 Body weight 76.[address] Olivier Olmstead MD Work Phone: 7(425)348-341362 [place] [address] 01-03-2024 09:33-0500 Body height 160.[address] Olivier Olmstead Work Phone: [facility] 01-03-2024 09:33-0500 Body mass index (BMI) [Ratio] 31.1 kg/m2 Dr. Olivier Olmstead Work Phone: [facility] 01-03-2024 09:33-0500 Body temperature 97 [degF] Dr. Olivier Olmstead Work Phone: [facility] 01-03-2024 09:33-0500 Body weight 79.[address] Olivier Olmstead Work Phone: 4(309)196-810168 [place] [address] 01-03-2024 09:33-0500 Diastolic blood pressure 76 mm[Hg] Dr. Olivier Olmstead Work Phone: 2(332)985-376868 [place] [address] 01-03-2024 09:33-0500 Heart rate 93 /min Dr. Olivier Olmstead Work Phone: [facility] 01-03-2024 09:33-0500 Respiratory rate 17 /min Dr. Olivier Olmstead Work Phone: [facility] 01-03-2024 09:33-0500 SaO2% (BldA) [Mass fraction] 96 % Dr. Olivier Olmstead Work Phone: [facility] 01-03-2024 09:33-0500 Systolic blood pressure 158 mm[Hg] Dr. Olivier Olmstead Work Phone: [facility] 11-28-2023 13:29-0500 Body height 160.[address] Olivier Olmstead Work Phone: [facility] 11-28-2023 13:29-0500 Body mass index (BMI) [Ratio] 31.3 kg/m2 Dr. Olivier Olmstead Work Phone: [facility] 11-28-2023 13:29-0500 Body weight 80.[address] Olivier Olmstead Work Phone: [facility] 11-28-2023 13:29-0500 Diastolic blood pressure 74 mm[Hg] Dr. Olivier Olmstead Work Phone: [facility] 11-28-2023 13:29-0500 Heart rate 88 /min Dr. Olivier Olmstead Work Phone: [facility] 11-28-2023 13:29-0500 Respiratory rate 20 /min Dr. Olivier Olmstead Work Phone: [facility] 11-28-2023 13:29-0500 Systolic blood pressure 136 mm[Hg] Dr. Olivier Olmstead Work Phone: [facility] 09-13-2022 13:53-0500 Body height 160.[address] Olivier Olmstead Work Phone: [facility] 09-13-2022 13:53-0500 Body mass index (BMI) [Ratio] 32.9 kg/m2 Dr. Olivier Olmstead Work Phone: [facility] 09-13-2022 13:53-0500 Body weight 84.[address] Olivier Olmstead Work Phone: [facility] 09-13-2022 13:53-0500 Diastolic blood pressure 82 mm[Hg] Dr. Olivier Olmstead Work Phone: [facility] 09-13-2022 13:53-0500 Heart rate 84 /min Dr. Olivier Olmstead Work Phone: [facility] 09-13-2022 13:53-0500 Respiratory rate 18 /min Dr. Olivier Olmstead Work Phone: [facility] 09-13-2022 13:53-0500 Systolic blood pressure 138 mm[Hg] Dr. Olivier Olmstead Work Phone: [facility] 05-11-2022 11:44-0400 Body height 160.[address] Olivier Olmstead Work Phone: [facility] Work Phone: 05-11-2022 11:44-0400 Body mass index (BMI) [Ratio] 31.1 kg/m2 Dr. Olivier Olmstead Work Phone: [facility] Work Phone: 05-11-2022 11:44-0400 Body weight 79.[address] Olivier Olmstead Work Phone: [facility] Work Phone: 05-18-2017 11:03-0400 BMI (Body Mass Index) 34.45 kg/m2 [facility] Work Phone: 05-18-2017 11:03-0400 BP Diastolic 60 mm[Hg] Harumi DeFinis [facility] Work Phone: 05-18-2017 11:03-0400 BP Systolic 102 mm[Hg] Harumi DeFinis [facility] Work Phone: 05-18-2017 11:03-0400 Height 160.02 cm [facility] Work Phone: 05-18-2017 11:03-0400 Pulse (Heart Rate) 68 /min [facility] Work Phone: 05-18-2017 11:03-0400 Respiratory Rate 20 /min [facility] Work Phone: 05-18-2017 11:03-0400 Weight 88.23 kg Harumi DeFinis [facility] Work Phone: 06-01-2016 14:31-0400 BMI (Body Mass Index) 35.03 kg/m2 Fabiola Ochoa RN [facility] Work Phone: 06-01-2016 14:31-0400 BP Diastolic 68 mm[Hg] Fabiola Ochoa RN [facility] Work Phone: 06-01-2016 14:31-0400 BP Systolic 110 mm[Hg] Fabiola Ochoa RN [facility] Work Phone: 06-01-2016 14:31-0400 BSA (Body Surface Area) 1.93 m2 Fabiola Ochoa RN [facility] Work Phone: 06-01-2016 14:31-0400 Pulse (Heart Rate) 72 /min Fabiola Ochoa RN [facility] Work Phone: 06-01-2016 14:31-0400 Respiratory Rate 16 /min Fabiola Ochoa RN [facility] Work Phone: 06-01-2016 14:31-0400 Weight 89.72 kg Fabiola Ochoa RN [facility] Work Phone: 02-22-2012 11:41-0400 Height 160.02 cm Fabiola Ochoa RN [facility] Work Phone: Encounters Encounter Date Encounter Type Care Provider Facility Start: 10-02-2025 ambulatory [facility]ier [facility] Facility[facility] Start: 09-09-2025 ambulatory Arnie Garcia Facility :[facility] Start: 08-17-2025 End: 08-17-2025 Patient encounter procedure Ophelia WATSON -[facility] Work Phone: Start: 08-17-2025 End: 08-17-[address] Olivier Olmstead MD Work Phone: -[facility] Start: 08-07-2025 End: 08-07-[address] Asim Ruiz MD -[facility] Work Phone: Start: 08-07-2025 End: 08-07-[address] Olivier Olmstead MD Work Phone: -[facility] Start: 08-05-2025 End: 08-05-[address] Anastacio Scruggs MD -[facility] Work Phone: Start: 08-05-2025 End: 08-05-[address] Olivier Olmstead MD Work Phone: [facility] Start: 07-29-2025 ambulatory Anastacio Scruggs Facility :[facility] Start: 07-29-2025 Non-patient / Non-visit Dr. Mario kate DO -[facility] Start: 07-29-2025 End: 07-29-2025 Admission to same day surgery center Dr. Anastacio Scruggs MD -[facility]iaison/Special Procedures Work Phone: Start: 07-29-2025 End: 07-29-[address] Olivier Olmstead MD Work Phone: -[facility]ia[facility]/Special Procedures Start: 07-21-2025 End: 07-21-[address] Olivier Olmstead MD Work Phone: -Laboratory Phy Office 3rd Flr Start: 07-21-2025 End: 07-21-2025 Patient encounter procedure Arnie Demiter PA -Laboratory Phy Office 3rd Flr Start: 07-21-2025 End: 07-21-2025 Patient encounter procedure Arnie Demiter PA -[facility] Work Phone: Start: 07-21-2025 End: 07-21-[address] Olivier Olmstead MD Work Phone: -[facility] Start: 07-21-2025 End: 07-21-2025 ambulatory Arnie Demiter Facility:[facility] Start: 07-16-2025 Non-patient / Non-visit Dr. Hernán RHODES -[facility] Work Phone: Start: 07-16-2025 End: 07-16-[address] Olivier Olmstead MD Work Phone: -Pulmonary Services/Neurology Start: 07-16-2025 End: 07-16-2025 Patient encounter procedure Arnie Demiter PA -Pulmonary Services/Neurology Work Phone: Start: 07-16-2025 End: 07-16-2025 ambulatory Arnie Demiter Facility:[facility] Start: 07-03-2025 End: 07-03-2025 Patient encounter procedure Arnie Demiter PA -[facility] Work Phone: Start: 07-03-2025 End: 07-03-[address] Olivier Olmstead MD Work Phone: -[facility] Start: 06-28-2025 Non-patient / Non-visit Dr. Nicole Gerardo MD [facility] Work Phone: Start: 06-27-2025 Non-patient / Non-visit Dr. Nicole Gerardo MD [facility] Work Phone: Start: 06-26-2025 Non-patient / Non-visit Dr. Nicole Gerardo MD [facility] Work Phone: Start: 06-25-2025 Non-patient / Non-visit Dr. Nicole Gerardo MD [facility] Work Phone: Start: 06-24-2025 Non-patient / Non-visit Dr. James staples MD -[facility] Start: 06-24-2025 ambulatory Garo Cadena ty:[facility] Start: 06-24-2025 End: 06-28-2025 Evaluation and management of inpatient Dr. Juan J Gerardo MD -[facility] Work Phone: Start: 06-24-2025 Non-patient / Non-visit Dr. Nicole Gerardo MD [facility] Work Phone: Start: 06-23-2025 ambulatory [facility] Facility:[facility] Start: 06-23-2025 Evaluation and management of inpatient Dr. Garo Monzon [facility] Work Phone: Start: 06-23-2025 Non-patient / Non-visit Dr. Adilene Monzon [facility] Work Phone: Start: 06-23-[address] Olivier Olmstead MD Work Phone: -Progressive Care Unit Start: 06-11-2025 Non-patient / Non-visit Dr. Hernán RHODES -[facility] Start: 06-11-2025 End: 06-11-[address] Olivier Olmstead MD Work Phone: -Cardiovascular Services Start: 06-11-2025 End: 06-11-2025 Patient encounter procedure rAnie CHAND -Cardiovascular Services Work Phone: Start: 06-11-2025 End: 06-11-2025 ambulatory Olivier Jaycob Ishan Facility:[facility] Start: 06-07-2025 End: 06-08-2025 Emergency department patient visit Dr. Olivier Olmstead MD Work Phone: -Emergency Department Work Phone: Start: 06-02-2025 End: 06-02-[address] Olivier Olmstead MD Work Phone: -Radiology [facility] Start: 06-02-2025 End: 06-02-[address] Olivier Olmstead MD -Radiology [facility] Work Phone: Start: 06-02-2025 End: 06-02-2025 ambulatory Olivier Olmstead Facility:[facility] Start: 05-18-2025 End: 05-18-2025 Patient encounter procedure Arnie CHAND -[facility] Work Phone: Start: 05-18-2025 End: 05-18-[address] Olivier Olmstead MD Work Phone: -[facility] Start: 04-20-2025 End: 04-20-2025 Emergency department patient visit Dr. Olivier Olmstead MD Work Phone: -Emergency Department Work Phone: Start: 04-06-2025 End: 04-06-[address] Olivier Olmstead MD Work Phone: [facility] Work Phone: Start: 04-06-2025 End: 04-06-[address] Olivier Olmstead MD -Cat Scan [facility] Work Phone: Start: 04-06-2025 End: 04-06-2025 ambulatory Olivier Olmstead Facility:[facility] Start: 12-31-2024 End: 12-31-[address] Olivier Olmstead MD Work Phone: [facility] Work Phone: Start: 12-31-2024 End: 12-31-[address] Olivier Olmstead MD -Laboratory, Phy Office 3rd Flr Start: 12-31-2024 End: 12-31-2024 ambulatory [facility] Facility:[facility] Start: 12-25-2024 End: 12-25-[address] Anastacio Scruggs MD -[facility] Work Phone: Start: 12-25-2024 End: 12-25-2024 ambulatory Anastacio Scruggs Facility:[facility] Start: 11-21-2024 End: 11-21-[address] Olivier Olmstead MD -Medical Out Work Phone: Start: 11-21-2024 End: 11-21-2024 [facility] Start: 11-20-2024 End: 11-20-[address] Olivier Olmstead MD -Cat Scan, [facility] Work Phone: Start: 11-20-2024 End: 11-20-2024 ambulatory Olivier Olmstead Facility:[facility] Start: 01-16-2024 End: 01-16-[address] Olivier Olmstead Work Phone: [facility] Work Phone: Start: 01-16-2024 End: 01-16-[address] Olivier Olmstead Work Phone: [facility] Work Phone: Start: 01-03-2024 Non-patient / Non-visit Dr. Dre Olmtsead Work Phone: [facility] Work Phone: Start: 01-03-2024 End: 01-03-[address] Olivier Olmstead Work Phone: [facility] Work Phone: Start: 01-02-2024 Non-patient / Non-visit Dr. Dre Olmstead Work Phone: [facility] Work Phone: Start: 01-02-2024 Non-patient / Non-visit Dr. Dre Olmstead Work Phone: [facility] Start: 01-02-2024 End: 01-02-[address] Olivier Olmstead Work Phone: [facility] Work Phone: Start: 01-02-2024 End: 01-02-[address] Olivier Olmstead Work Phone: [facility]-Cardiovascular Services Work Phone: Start: 12-24-2023 End: 12-24-[address] Olivier Olmstead Work Phone: [facility] Work Phone: Start: 12-24-2023 End: 12-24-[address] Olivier Olmstead Work Phone: [facility]-Laboratory, Specimen Work Phone: Start: 12-20-2023 End: 12-20-[address] Olivier Olmstead Work Phone: [facility] Work Phone: Start: 12-20-2023 End: 12-20-[address] Olivier Olmstead Work Phone: [facility]-Cat Scan, [facility] Work Phone: Start: 12-03-2023 End: 12-03-[address] Olivier Olmstead Work Phone: [facility] Work Phone: Start: 12-03-2023 End: 12-03-[address] Olivier Olmstead Work Phone: [facility]-Outpatient Breast Imaging Work Phone: Start: 11-28-2023 End: 11-28-[address] Olivier Olmstead Work Phone: [facility] Work Phone: Start: 11-05-2023 End: 11-05-2023 ambulatory [facility] Work Phone: Start: 11-05-2023 End: 11-05-2023 Patient encounter procedure [facility] [facility] Start: 05-09-2023 End: 05-09-2023 ambulatory [facility] Work Phone: Start: 05-09-2023 End: 05-09-2023 [facility] Start: 05-02-2023 End: 05-02-2023 ambulatory [facility] Work Phone: Start: 05-02-2023 End: 05-02-2023 [facility] Start: 11-02-2022 End: 11-02-[address] Olivier Olmstead Work Phone: [facility] Work Phone: Start: 11-02-2022 End: 11-02-[address] [facility]mstead [facility] Start: 09-13-2022 End: 09-13-[address] Olivier Olmstead Work Phone: [facility] Start: 05-30-2022 End: 05-30-[address] [facility]mstead [facility] Start: 05-24-2022 End: 05-24-[address] Olivier Olmstead Work Phone: [facility] Start: 05-17-2022 End: 05-17-[address] Olivier Olmstead Work Phone: [facility] Start: 05-11-2022 End: 05-11-[address] Olivier Olmstead Work Phone: [facility] Start: 04-27-2022 End: 04-27-2022 Patient encounter procedure [facility]-Laboratory, Phy Office 3rd Flr Start: 03-01-2022 End: 03-01-2022 Patient encounter procedure [facility]-Radiology, WC Start: 02-01-2022 End: 02-01-2022 Patient encounter procedure [facility]-Outpatient Breast Imaging Start: 10-26-2021 Patient encounter procedure [facility]-Laboratory, Phy Office 3rd Flr Procedures Date Procedure Procedure Detail Performing Clinician Start: 06-27-[address] Olivier Olmstead MD Work Phone: Start: 06-25-2025 Serum inorganic phos phate measurement Dr. Olivier Olmstead MD Work Phone: Start: 06-23-2025 CT angiography of ch est with contrast Dr. Olivier Olmstead MD Work Phone: Start: 06-23-2025 Plain chest X-ray Dr. Blue Olmstead MD Work Phone: Start: 06-07-2025 Plain chest X-ray Dr. Blue [...] Work Phone: Start: 11-21-2024 Gram stain microscopy D logan Olmstead MD Work Phone: Start: 11-21-2024 Microbial [...] Claude Good MD Start: 12-01-2015 End: 06-01-2016 MM Claude Good MD Start: 04-21-2015 End: 04-22-2015 [...] PF Sondra Bhatia PA-C Work Phone: Start: 10-05-2014 [...] PFM Sondra Bhatia PA-C Work Phone: Start: 08-14-2012 [...] Good MD Influenza Types A,B Direct FA ([facility]) Dr. Olivier Olmstead Work Phone: Respiratory syncytia l virus antigen assay Dr. Olivier Olmstead Work Phone: Urine culture Plan of Treatment Date Care Activity Detail Author Start: 08-17-2025 End: 08-17-2025 Patient encounter procedure HFrEF (heart failure with reduced ejection fraction) -[facility] Work Phone: Start: 08-17-2025 End: 08-17-2025 Evaluation of diagnostic study results [facility] Start: 08-07-2025 End: 08-07-2025 Evaluation of diagnostic study results [facility] Start: 08-05-2025 End: 08-05-2025 Evaluation of diagnostic study results [facility] Start: 07-29-2025 Patient discharge [facility] Start: 07-22-2025 Cardioversion [facility] Start: 07-21-2025 End: 07-21-2025 Evaluation of diagnostic study results [facility] Start: 07-03-2025 End: 07-03-2025 Evaluation of diagnostic study results [facility] Start: 06-28-2025 Patient discharge [facility] Start: 06-25-2025 Care planning and problem solving actions [facility] Start: 06-24-2025 Admission procedure [facility] Start: 06-24-2025 End: 06-25-2025 [facility] Start: 06-23-2025 [facility] Start: 06-23-2025 Following clinical pathway protocol [facility] Start: 06-23-2025 Assessment of risk of venous thromboembolism [facility] Start: 06-23-2025 Insertion of catheter into peripheral vein [facility] Start: 06-23-2025 Measuring intake and output [facility] Start: 06-23-2025 Providing care according to standard [facility] Start: 06-23-2025 Provision of activity privileges [facility] Start: 06-23-2025 Referral for physical therapy [facility] Start: 06-23-2025 Referral to network operations manager [facility] Start: 06-23-2025 Referral to occupational therapist [facility] Start: 06-23-2025 Referral to service [facility] Start: 06-23-2025 [facility] Start: 06-23-2025 Care planning and problem solving actions [facility] Start: 06-23-2025 Verification routine [facility] Start: 06-23-2025 Admission procedure [facility] Start: 06-23-2025 Hospital admission, emergency, from emergency room, medical nature [facility] Start: 06-23-2025 End: 06-24-2025 [facility] Start: 06-23-2025 Patient referral to dietitian [facility] Start: 06-08-2025 [facility] Start: 06-07-2025 [facility] Start: 05-18-2025 End: 05-18-2025 Evaluation of diagnostic study results [facility] Start: 04-20-2025 [facility] Start: 04-20-2025 Electrocardiographic procedure [facility] Start: 04-20-2025 End: 04-20-2025 [facility] Start: 11-21-2024 Iv infusion hydration each additional hour HYDRATE IV INFUSION ADD-ON [facility] Start: 11-21-2024 Iv infusion hydration initial 31 min-1 hour HYDRATION IV INFUSION INIT [facility] Start: 12-24-2023 Procedure [facility] Start: 05-22-2018 End: 05-22-2018 Appointment Appointment [facility] Work Phone: Start: 05-18-2017 End: 05-18-2017 Appointment Appointment [facility] Work Phone: Start: 05-18-2017 End: 05-18-2017 Follow Up Appt 1 year Follow Up Appt 1 year [facility] Work Phone: Start: 05-18-2017 End: 05-18-2017 PFM PFM [facility] Work Phone: Start: 06-01-2016 End: 06-02-2016 *BMP *BMP [facility] Work Phone: Start: 06-01-2016 End: 06-01-2016 Follow Up Appt 6 months Follow Up Appt 6 months [facility] Work Phone: Start: 06-01-2016 End: 06-01-2016 Follow Up Appt Other Follow Up Appt Other [facility] Work Phone: Start: 06-01-2016 End: 06-01-2016 PFM PFM [facility] Work Phone: Start: 06-01-2016 End: 06-02-2016 *BMP *BMP [facility] Work Phone: Start: 06-01-2016 End: 06-01-2016 Follow Up Appt 6 months Follow Up Appt 6 months [facility] Work Phone: Start: 06-01-2016 End: 06-01-2016 Follow Up Appt Other Follow Up Appt Other [facility] Work Phone: Start: 06-01-2016 End: 06-01-2016 PFM PFM [facility] Work Phone: Start: 12-01-2015 End: 06-01-2016 Ecg routine ecg w/least 12 lds w/i&r EKG (In office) [facility] Work Phone: Start: 12-01-2015 End: 06-01-2016 Follow Up Appt 6 months Follow Up Appt 6 months [facility] Work Phone: Start: 12-01-2015 End: 06-01-2016 MMM MMM [facility] Work Phone: Start: 12-01-2015 End: 06-01-2016 Electrocardiogram, complete EKG (In office) [facility] Work Phone: Start: 12-01-2015 End: 06-01-2016 Follow Up Appt 6 months Follow Up Appt 6 months [facility] Work Phone: Start: 12-01-2015 End: 06-01-2016 MMM MMM [facility] Work Phone: Start: 04-21-2015 End: 04-21-2015 Follow Up Appt 6 months Follow Up Appt 6 months [facility] Work Phone: Start: 04-21-2015 End: 04-21-2015 PFM PFM [facility] Work Phone: Start: 04-21-2015 End: 04-21-2015 Follow Up Appt 6 months Follow Up Appt 6 months [facility] Work Phone: Start: 04-21-2015 End: 04-21-2015 PFM PFM [facility] Work Phone: Start: 10-05-2014 End: 10-06-2014 Ecg routine ecg w/least 12 lds w/i&r EKG (In office) [facility] Work Phone: Start: 10-05-2014 End: 10-06-2014 Follow Up Appt 6 months Follow Up Appt 6 months [facility] Work Phone: Start: 10-05-2014 End: 10-06-2014 MMM MMM [facility] Work Phone: Start: 10-05-2014 End: 10-06-2014 Electrocardiogram, complete EKG (In office) [facility] Work Phone: Start: 10-05-2014 [...] 6 months Follow Up Appt 6 months [facility] Work Phone: Start: 04-01-2014 End: 04-21-2015 Follow Up Appt Other Follow Up Appt Other [facility] Work Phone: Start: 04-01-2014 End: 04-14-2015 MMM MMM [facility] Work Phone: Start: 06-04-2013 End: 06-04-2013 Ecg routine ecg w/least 12 lds w/i&r EKG (In office) [email or web address] Work Phone: Start: 06-04-2013 End: 06-04-2013 Follow Up Appt 6 months Follow Up Appt 6 months [email or web address] Work Phone: Start: 06-04-2013 End: 06-04-2013 PFM PFM [email or web address] Work Phone: Start: 06-04-2013 End: 06-04-2013 Electrocardiogram, complete EKG (In office) [email or web address] Work Phone: Start: 06-04-2013 End: 06-04-2013 Follow Up Appt 6 months Follow Up Appt 6 months [email or web address] Work Phone: Start: 06-04-2013 End: 06-04-2013 PFM PFM [email or web address] Work Phone: Start: 08-14-2012 End: 08-14-2012 Ecg routine ecg w/least 12 lds w/i&r EKG (In office) [email or web address] Work Phone: Start: 08-14-2012 End: 08-14-2012 Follow Up Appt 6 months Follow Up Appt 6 months [facility] Phone: Start: 08-14-2012 End: 08-14-2012 Electrocardiogram, complete EKG (In office) [email or web address] Work Phone: Start: 08-14-2012 End: 08-14-2012 Follow Up Appt 6 months Follow Up Appt 6 months [email or web address] Work Phone: Start: 02-22-2012 End: 02-22-2012 Ecg routine ecg w/least 12 lds w/i&r EKG (In office) [email or web address] Work Phone: Start: 02-22-2012 End: 03-04-2013 Follow Up Appt 6 months Follow Up Appt 6 months [facility] Work Phone: Start: 02-22-2012 End: 02-22-2012 Electrocardiogram, complete EKG (In office) [facility] Work Phone: Start: 02-22-2012 End: 03-04-2013 Follow Up Appt 6 months Follow Up Appt 6 months [facility] Work Phone: 24 Hour ECG [facility] Ambulatory ECG [facility] MR Abdomen WO and W contrast IV [facility] NM Heart Views W str ess and W radionuclide IV [facility] Ova and parasites id entified in Unspecified specimen by Light microscopy [facility] Patient Education [facility] Work Phone: Patient referral [facility] Work Phone: Procedure [facility] Troponin T.cardiac [Mass/volume] in Serum or Plasma by High sensitivity method [facility] US Heart limited [facility] Immunizations Immunization Date Immunization Notes Care Provider Fa cility 12-26-2024 tetanus toxoid, redu michelle diphtheria toxoid, and acellular pertussis vaccine, adsorbed Dr. Olivier Olmstead MD Work Phone: [facility] 08-28-2024 Covid (Spikevax) Dr. Olivier lopez MD Work Phone: [facility] 08-14-2024 influenza, high dose seasonal, preservative-free Dr. Olivier Olmstead MD Work Phone: [facility] 07-18-2024 RSV Adult Recombinan t (Arexvy) Dr. Olivier Olmstead MD Work Phone: [facility] 08-12-2022 influenza, injectabl e, quadrivalent, preservative free Dr. Olivier Olmstead MD Work Phone: [facility] 08-04-2022 Covid Moderna Bivale nt Booster Dr. Olivier Olmstead MD Work Phone: [facility] 03-08-2022 Covid (Moderna) Dr. Olivier Olmstead MD Work Phone: [facility] 10-26-2021 influenza, injectabl e, quadrivalent, preservative free Dr. Olivier Olmstead MD Work Phone: [facility] 09-15-2021 Coval ([facility]) Dr. Olivier Olmstead MD Work Phone: [facility] 01-19-2021 Coval ([facility]) [facility] 12-22-2020 Covid ([facility]) [facility] 08-02-2020 influenza, injectabl e, quadrivalent, preservative free Dr. Olivier Olmstead MD Work Phone: [facility] 12-29-[address] Olivier Olmstead MD Work Phone: [facility] 10-23-[address] Olivier Olmstead MD Work Phone: [facility] 10-02-2019 influenza, injectabl e, quadrivalent, preservative free Dr. Olivier Olmstead MD Work Phone: [facility] 06-29-2017 Influenza virus vaccine [facility] 06-28-2017 influenza, injectabl e, quadrivalent, preservative free Dr. Olivier Olmstead MD Work Phone: [facility] 09-18-2016 influenza, injectabl e, quadrivalent, preservative free Dr. Olivier Olmstead MD Work Phone: [facility] 08-27-2012 Pneumococcal Vaccine [facility] Work Phone: 08-27-2012 pneumococcal vaccine , unspecified formulation Dr. Olivier Olmstead Work Phone: [facility] 03-08-2012 tetanus toxoid, redu michelle diphtheria toxoid, and acellular pertussis vaccine, adsorbed Dr. Olivier Olmstead MD Work Phone: [facility] 09-27-2009 pneumococcal polysaccharide vaccine, [address] Olivier Olmstead MD Work Phone: [facility] Payers Date Payer Category Payer Self-pay [id number] 2024 Medicare [id number] Unknown [id number] 2.16.8 40.1.341308.3.579.2.462 Unknown [id number] 2.16.8 40.1.693029.3.579.2.462 Unknown [id number] 2.16.8 40.1.247426.3.579.2.462 Unknown [id number] 2.16.8 40.1.999846.3.579.2.462 Unknown [id number] 2.16.8 40.1.639781.3.579.2.462 Unknown [id number] 2.16.8 40.1.741872.3.579.2.462 Unknown [id number] 2.16.8 40.1.819583.3.579.2.462 Unknown [id number] 2.16.8 40.1.052043.3.579.2.462 Unknown [id number] 2.16.8 40.1.814225.3.579.2.462 Unknown [id number] 2.16.8 40.1.978866.3.579.2.462 Unknown [id number] 2.16.8 40.1.237385.3.579.2.462 Unknown [id number] 2.16.8 40.1.665765.3.579.2.462 Unknown [id number] 2.16.8 40.1.611854.3.579.2.462 Unknown [id number] 2.16.8 40.1.380085.3.579.2.462 Unknown [id number] 2.16.8 40.1.629650.3.579.2.462 Unknown [id number] 2.16.8 40.1.829013.3.579.2.462 Unknown [id number] 2.16.8 40.1.384014.3.579.2.462 Unknown [id number] 2.16.8 40.1.225809.3.579.2.462 Unknown [id number] 2.16.8 40.1.473553.3.579.2.462 Unknown [id number] 2.16.8 40.1.823941.3.579.2.462 Unknown [id number] 2.16.8 40.1.636493.3.579.2.462 Unknown [id number] 2.16.8 40.1.610698.3.579.2.462 Unknown [id number] 2.16.8 40.1.480254.3.579.2.462 Unknown [id number] 2.16.8 40.1.826790.3.579.2.462 Unknown [id number] 2.16.8 40.1.057181.3.579.2.462 Unknown [id number] 2.16.8 40.1.220751.3.579.2.462 Unknown [id number] 2.16.8 40.1.864991.3.579.2.462 Unknown [id number] 2.16.8 40.1.380101.3.579.2.462 Unknown [id number] 2.16.8 40.1.748913.3.579.2.462 Unknown [id number] 2.16.8 40.1.545095.3.579.2.462 Unknown [id number] 2.16.8 40.1.425894.3.579.2.462 Unknown [id number] 2.16.8 40.1.071511.3.579.2.462 Social History Date Type Detail Facility Start: 09-07-2021 End: 01-03-2024 Tobacco smoking status NDIS Unknown if ever smoked [facility] Start: 10-15-[address] [facility] Start: 05-29-[address] [facility] Start: 1950 Sex Assigned At Female [facility] Start: 06-23-2024 End: 07-29-2025 Tobacco smoking status NHIS Ex-smoker (finding) [facility] Start: 01-11-2025 Sex Female (finding) [facility] Sex Female [facility] Medical Equipment Procedure Code Equipment Code Equipment [...] Goals Date Patient Goal Desired Activity /State Functional Status Date Assessment Result Facility 06-28-2025 Functional status Activity Abili ty With Assist of 1 [facility] Work Phone: 06-28-2025 Functional status Ambulates;Bathroom Priv ilege [facility] Work Phone: Mental Status Date Assessment Result Facility 06-28-2025 Cognitive function Voice/Name [facility] Work Phone: 06-23-2025 Cognitive function Awake;Alert;A ppropriate;Follow s Commands [facility] Work Phone: 06-07-2025 Cognitive function Voice/Name [facility] Work Phone: 04-20-2025 Cognitive function Level Of Cons ciousness Awake;Alert;Appropriate;Follow s Commands [facility] Work Phone: Clinical Notes 12-25-2024 to 08-17-2025 Note Date & Type Note Facility 08-17-2025 Progress note [facility] 08-17-2025 Progress note Note Date/Time August 17, 2025 4:33pm [facility] [address] [place] [address] OFFICE VISIT Date of Service: 08/17/25 MR#: [id number] Acct: [id number] Name: DONNA CEJA Rep #: [id number] : [id number] Provider: SHIRLEY Dinaa Age/Sex: 75/F Location: [facility] Status: Signed with Addenda ADDENDUM by JAGRUTI Hernandes on 08/26/25 at 1709 Assessment and Plan Assessment and Plan (1) Paroxysmal atrial fibrillation: Status: Chronic (2) Paroxysmal atrial tachycardia: Status: Acute (3) Nonrheumatic mitral (valve) prolapse: Status: Acute (4) HFrEF (heart failure with reduced ejection fraction): Status: Acute (5) Hypertension: Status: Acute Qualifiers: Hypertension type: unspecified Qualified Code(s): I10 - Essential (primary) hypertension Orders: Orders 12 Lead EKG performed by [facility] 08/17/25 I48.0 - Paroxysmal atrial fibrillation Echo, Limited Study 3 Months I50.20 - Unspecified systolic (congestive) heart failure, R06.02 - Shortness of breath Plan STOP-BANG Assessment: 1. Do you snore? yes 2. Are you frequently tired during the day? yes 3. Have you been observed gasping or choking while asleep? yes 4. Do you have high blood pressure? yes 5. BMI - greater than 35kg/m2? no 6. Age - over 50 years old? yes 7. Neck Circumference - greater than 37 cm for females or 40 cm for males? no 8. Gender - male? no Total STOP-BANG score = 5 which indicates high risk for obstructive sleep apnea (yes to 3 or more questions = high risk of sleep apnea). Plan Details Goals & Barriers: Goals Decrease spasm Decrease radiculopathy Improve ROM Decrease pain Barriers CMT DDD Follow Up: 4 Months (PRITI/JAGRUTI) 08/26/25 1709 <Electronically signed by Arnie CHAND> Date _ Arnie Garcia cc: ~* Signed ADDENDUM by SHIRLEY Diana on 08/18/25 at 1627 Assessment and Plan Assessment and Plan (1) Paroxysmal atrial fibrillation: Status: Chronic (2) Paroxysmal atrial tachycardia: Status: Acute (3) Nonrheumatic mitral (valve) prolapse: Status: Acute (4) HFrEF (heart failure with reduced ejection fraction): Status: Acute (5) Hypertension: Status: Acute Qualifiers: Hypertension type: unspecified Qualified Code(s): I10 - Essential (primary) hypertension (6) CHON (obstructive sleep apnea): Status: Acute Plan: Patient states she has a history of CHON. She states that she was tested years ago for this, and is currently not being treated. Patient was encouraged to proceed with sleep study to reassess this. Orders: Orders 12 Lead EKG performed by [facility] 08/17/25 I48.0 - Paroxysmal atrial fibrillation Echo, Limited Study 3 Months I50.20 - Unspecified systolic (congestive) heart failure, R06.02 - Shortness of breath Plan Details Goals & Barriers: Goals Decrease spasm Decrease radiculopathy Improve ROM Decrease pain Barriers CMT DDD Follow Up: 4 Months (INSTALLATION SUPERINTENDENT/PA) 08/18/25 [id number] <Electronically signed by Ophelia Diana NP INSTALLATION SUPERINTENDENT-C> Date _ Ophelia Diana NP INSTALLATION SUPERINTENDENT-C cc: ~* Signed HPI HPI History of Present Illness Details: Donna Ceja is a 75-year-old female who presents today for cardiovascular follow-up visit. She has a history of nonrheumatic mitral valve regurgitation, left bundle branch block, Kutlbdm-Lvxtd-Akhqg disease, and longstanding atrial fibrillation diagnosed approximately 18 years ago. She has a background of nonischemic dilated cardiomyopathy, with a significant decline in left ventricular ejection fraction (LVEF) from 60% in December 2023 to 35% in May 2025. The patient also has a history of sleep apnea with intolerance to CPAP therapy. Since her last office visit, the patient underwent a cardioversion on July. The patient?s arrhythmia has been refractory to multiple antiarrhythmic agents, including intolerance to metoprolol and flecainide. She is currently maintained on amiodarone and Eliquis. Holter monitoring from July 16?2024, demonstrated persistent atrial fibrillation with an average ventricular response of 104 bpm. Despite amiodarone initiation on July 21, 2025, and subsequent cardioversion. From a cardiac standpoint, the patient is doing well. She does acknowledge occasional palpitations. She denies any chest pain, pressure or heaviness. She does acknowledge occasional SOB. This is nothing new or worsening. She denies Orthopnea, and PND. She does not have bleeding issues; no blood in urine, stool,or nosebleeds. She denies any decrease in energy level, myalgias, or claudication. She does not have edema, or sudden weight gain. She denies lightheadedness, dizziness, syncopal or near syncopal episodes, and headaches. Intake Vital Signs 07/21/25 07:09 08/07/25 09:12 08/17/25 07:51 Height 5 ft 3 in 5 ft 3 in 5 ft 3 in Weight: 174 lb BMI 30.8 BP 139/74 H Blood Pressure Location Lt brachial Position Sitting Respiration 18 Pulse 83 Pulse Source Monitor Pulse Oximetry (%) 95 Intake Visit Reasons: 4 W FU Charity Fundraiser Required: No Is patient in pain?: No Allergies prednisone Allergy (Intermediate, Verified 08/17/25 15:23) Rash ciprofloxacin Adverse Reaction (Intermediate, Verified 08/17/25 15:23) Nausea/Vom/Diarrhea adhesive Adverse Reaction (Verified 08/17/25 15:23) Rash Medications ?Medication ?Instructions ?Recorded ?Confirmed ?Type levothyroxine 125 mcg tablet 125 mcg PO QODAY 11/28/23 08/17/25 History levothyroxine 112 mcg tablet 112 mcg PO QODAY 04/20/25 08/17/25 History apixaban 5 mg tablet (Eliquis) 5 mg PO BID 06/23/25 History citalopram 10 mg tablet 10 mg PO DAILY 06/23/2507/30 History cyclobenzaprine 10 mg tablet 10 mg PO DAILY PRN pain 0 06/23/25 08/17/25 History amiodarone 200 mg tablet 200 mg PO DAILY 30 days #30 tabs 07/21/25 08/17/25 Rx lisinopril 2.5 mg tablet 2.5 mg PO QDAY 30 days #30 t abs 08/10/25 08/17/25 Rx Ejection fraction %: 35 Have you fallen in the past year?: No PFSH Medical History Anxiety Osteoporosis Kidney stones Former smoker Atrial fibrillation Muscular dystrophy Paroxysmal atrial tachycardia Non-rheumatic mitral regurgitation Nonrheumatic mitral (valve) prolapse Paroxysmal atrial fibrillation History of kidney stones Left bundle branch block Kdembxq-Woymr-Phfth disease Hypotension Depression Surgical History Hx of thyroidectomy History of appendectomy History of lithotripsy (~10/2017) Hx of cholecystectomy [...] servings: 2 ROS Const Const: Negative for fatigue, weakness, headache(s) or frequent falls Eyes Eyes: Negative for blurry vision ENT ENT: Negative for headache(s), dizziness or Nosebleed/epistaxis Cardio Chest Pain: No Palpitations: Yes Edema: None Muscle aches with walking: None Resp Respiratory: Positive for SOB with activity; Negative for SOB at rest or SOB orthopnea\\SOB lying down GI GI: Negative nausea, vomiting, heartburn, bright, red blood in stools or black,tarry stools : Negative for hematuria Neuro Neuro: Negative for dizziness, lightheadedness, near syncope, syncope, frequent falls, headache(s), weakness or blurry vision Endo Endo: Negative for fatigue Cardiology Exam Const Appearance: cooperative, comfortable, no acute distress and well developed; Negative diaphoretic or ill appearing Nutritional Appearance: obese Orientation: alert and oriented x3 Head Head: normal to inspection, normocephalic and atraumatic Ears: hearing grossly normal bilaterally Nose: external nose normal and Negative epistaxis Face and Sinus: face symmetric Eyes General: appearance normal, both eyes and all related structures Eyelids: eyelids normal Conjunctivae: conjunctivae normal; Negative scleral icterus EOM: EOM intact bilaterally Neck Neck: no JVD Carotids: normal carotid upstroke; Negative bruit Neck Mass: Negative Neck mass Chest Chest inspection: normal inspection of the chest and normal respiratory effort Auscultation: Bilateral: Clear to Auscultation Cardio Palpation: normal PMI Rate: regular rate Rhythm: regular rhythm Heart sounds: S1 normal and S2 normal; Negative rub, gallop or murmur GI GI: normal to inspection and obese Neuro General: patient alert, patient awake, patient oriented x3 and moves all extremities Skin Skin: no rashes or lesions noted Extremities Pulses: Normal: Right Posterior Tibial Pulse, Left Posterior Tibial Pulse, RightRadial Pulse and Left Radial Pulse Lower Extremity Edema: None: Bilateral Psych Psychological: normal affect Supplemental Info Supplemental Information Echo Complete 06/11/2025 Interpretation Summary Normal LV size. The left ventricular ejection fraction is 35 %. Mild concentric left ventricular hypertrophy. There is mild to moderate global hypokinesis of the left ventricle. The left atrium is moderately enlarged. Echocardiogram 01/02/2024 Interpretation Summary Mild concentric left ventricular hypertrophy. The left ventricular ejection fraction is 60 %. Diastolic function is indeterminate. The left atrium is severely enlarged. The right atrium is mildly enlarged. Moderate (2+) anteriorly directed mitral valve insufficiency. Right ventricular systolic pressure estimated to be 43 mmHg. Stress Test 01/02/2024 Impression: 1. Pharmacologic (Regadenoson) evaluation 2. Peak pharmacologic ECG with no ischemic changes. 3. There were no cardiac dysrhythmias pretest, during pharmacologic infusion, or recovery. 5. Rest and stress SPECT Cardiolite nuclear imaging demonstrate relative uniform tracer uptake and myocardial perfusion appearing within normal limits. 6. The gated Cardiolite study reports an LVEF of 77%. CTA Chest W/WO Contrast 06/23/2025 Heart Findings: PULMONARY VESSELS: No filling defects suspicious for pulmonary arterial emboli identified, although the subsegmental branches are not adequately evaluated due to respiratory motion artifact. Prominent caliber of the central pulmonary vessels may reflect pulmonary arterial hypertension. THORACIC AORTA: Mildly tortuous but normal in caliber. No aneurysm or dissection. Mild atherosclerotic disease. Conventional three-vessel aortic arch branching. HEART: Cardiomegaly with predominantly left atrial enlargement. No pericardial effusion. Mild coronary artery and mitral annulus calcifications. Impression: 1. No pulmonary arterial emboli identified. 2. No thoracic aortic aneurysm or dissection. 3. Cardiomegaly with predominantly left atrial enlargement. 4. No airspace consolidation/edema, or pleural effusions. Holter Monitor 07/16/2025 Findings: There were a total of [id number] beats recoreded over the 24 hr period. Average heart rate was 104 BPM Minimum heart rate was 81 BPM at 2327 PM, atrial fibrillation Maximum heart rate was was 133 BPM at 1353 PM, atrial fibrillation The longest R-R Interval was 1.1 secondsat 2313 PM No runs noted. The patient kept a diary with no symptoms noted. Cardiac Catheterization 02/27/2006 Final Impression 1. Elevated left ventricular end diastolic pressure compatible with decreased diastolic compliance. 2. Left ventricle: Preserved LV size, wall motion, and systolic function with anestimated LVEF of 65-70%. 3. Left main: Angiographically normal 4. LAD: Angiographically normal 5. LCX: Angiographically normal 6. RCA: Proximal 0-10% minimal luminal irregularities. 7. Mitral valve: Mild mitral regurgitation. Labs: LDL Cholesterol, (0-130) 109 mg/dL HDL Cholesterol, (40-) 67 mg/dL Cholesterol, (<=200) 203 mg/dL H Triglycerides, (-199) 112 mg/dL Diagnostics: Electrocardiogram Echocardiogram Stress Test Stress Test Nuclear Medicine Chest X-Ray Chest CTA Abdomen Ultrasound Abdomen/Pelvis CT Pulmonary: Pulmonary Function Test Past Visits: Cardiology Visit Today Assessment and Plan Assessment and Plan (1) Paroxysmal atrial fibrillation: Status: Chronic Plan: Patient is a history of paroxysmal atrial fibrillation. Her EKG from today demonstrates normal sinus rhythm, heart rate 88 bpm, QT/QTc 392/474. She does acknowledge occasional palpitations, but states this is nothing like her atrial fibrillation. At this time she was asked to continue amiodarone 200 mg daily, and Eliquis 5 mg twice daily. She will continue to monitor for any concerning symptoms of atrial fibrillation. (2) Paroxysmal atrial tachycardia: Status: Acute Plan: Patient has a history of atrial tachycardia. Her EKG from today demonstrates normal sinus rhythm, heart rate 88 bpm, QT/QTc 392/474. She will continue amiodarone 200 mg daily. She will continue to monitor for any concerning symptoms. (3) Nonrheumatic mitral (valve) prolapse: Status: Acute Plan: Patient has a history of mitral valve prolapse with regurgitation. Her most recent echocardiogram from 06/11/2025 demonstrated normal mitral valve with mild (1+) eccentric mitral valve insufficiency. This was reviewed with patient. Sheappears stable at this time, denies any recent symptoms or events. We will continue to monitor this with history, exam, and echocardiograms as deemed appropriate. (4) HFrEF (heart failure with reduced ejection fraction): Status: Acute Plan: Patient has a history of heart failure with reduced ejection fraction. Her mostrecent echocardiogram from 06/11/2025 demonstrated decreased ejection fraction of35%. This is likely multifactorial due to persistent atrial fibrillation with RVR, mitral regurgitation and possible contribution from hypertension. Patient was cardioverted on 07/29/2025. Will obtain a limited echocardiogram in 3 monthsto reassess this. Depending on results, further recommendations will be made. At this time she will continue lisinopril 2.5 mg daily. She will continue to monitor for any concerning symptoms. (5) Hypertension: Status: Acute Qualifiers: Hypertension type: unspecified Qualified Code(s): I10 - Essential (primary) hypertension Plan: Patient has a history of hypertension. Her blood pressure is well-controlled atthis time?139/74. She states her blood pressures at home are much lower. At this time she will continue lisinopril 2.5 mg daily, along with monitoring her blood pressures at home. She will notify our office any persistently elevated or low blood pressure readings. Orders: Orders 12 Lead EKG performed by [facility] Today I48.0 - Paroxysmal atrial fibrillation Echo, Limited Study 3 Months I50.20 - Unspecified systolic (congestive) heart failure, R06.02 - Shortness of breath Plan Details Additional Comments: Patient will follow-up in 3 months, or sooner if needed. Thank you for allowing me to participate in the care of your patient. Please donot hesitate to call if any issues arise. This note was generated using a voice recognition system and there may be incorrect words, spelling, or punctuation that were not noted when reviewing theoffice note prior to saving. Portions of this documentation were copied and pasted from previous office visitnotes to provide cohesive continuity of the history. The note has been reviewed,edited, and updated, as necessary. Goals & Barriers: Goals Decrease spasm Decrease radiculopathy Improve ROM Decrease pain Barriers CMT DDD Follow Up: 4 Months (INSTALLATION SUPERINTENDENT/PA) Coding Level of Care Code Off vis,est,level 4 Diagnoses Paroxysmal atrial fibrillation I48.0 Paroxysmal atrial tachycardia I47.1 Nonrheumatic mitral (valve) prolapse I34.1 HFrEF (heart failure with reduced ejection fraction) I50.20 Hypertension, unspecified type I10 Hypertension type: unspecified Coding Level of Care Code Off vis,est,level 4 Diagnoses Paroxysmal atrial fibrillation I48.0 Paroxysmal atrial tachycardia I47.1 Nonrheumatic mitral (valve) prolapse I34.1 HFrEF (heart failure with reduced ejection fraction) I50.20 Hypertension, unspecified type I10 Hypertension type: unspecified Clinical Quality Measures Falls Risk Screening/Assistive Devices Have you fallen in the past year?: No Cardiac Ejection fraction %: 35 08/17/25 1612 <Electronically signed by Ophelia WATSON> Date _ Ophelia WATSON Cosign Signature: Date (if applicable) CC: ~ [facility] Work Phone: [phone]) 962-797210-10-2025 [facility] [address] [place] [address] OFFICE VISIT Date of Service: 08/07/25 MR#: [id number] Acct: [id number] Name: DONNA CEJA Rep #: [id number] : 1950 Provider: Dr. Lis Ruiz MD Age/Sex: 75/F [place] [facility] [place]: Signed HPI HPI History of Present Illness Surgical H&P: No Details: The patient presents for evaluation of persistent atrial fibrillation and management of nonischemiccardiomyopathy. The patient is a 74-year-old female with a history of nonrheumatic mitral valve regurgitation, leftbundle branch block, Kvoitri-Gresl-Mkkzp disease, and longstanding atrial fibrillation diagnosed approximately 18 years ago. She has abackground of nonischemic dilated cardiomyopathy, with a significant decline in left ventricular ejection fraction (LVEF) from 60% in December 2023 to 35% in May 2025. The patient also has a history of sleep apnea with intolerance to CPAP therapy. Since her last office visit, the patient underwent a cardioversion on July, which resulted in only transient mandaeism of sinus rhythm, with recurrence of atrial fibrillation within hours. She reports intermittent episodes of palpitations described as a sensation of pressure and rapid he artbeat, typically lasting only seconds and resolving spontaneously. She denies prolonged episodes of arrhythmia. The patient also describes episodes of lightheadedness or a sensation of being "spaced out," particularly when sitting or after standing, which may be related to fluctuations in blood pressure. She notes that her blood pressure is labile, with occasional readings in the 90s systolic, but she generally feels well at these levels. She has a history of postural orthostatic tachycardia syndrome (POTS), with prior failed tilt table testing, and experiences orthostatic symptoms without clear positional changes. She also reports a history of diverticulosis with intermittent episodes of gastrointestinal bleeding lasting two to three days, which resolve spontaneously. The patient?s arrhythmia has been refractory to multiple antiarrhythmic agents, including intolerance to metoprolol and flecainide. She is currently maintained on amiodarone and Eliquis. Holter monitoring from July 16?2024, demonstrated persistent atrial fibrillation with an average ventricular responseof 104 bpm. Despite amiodarone initiation on July 21, 2025, and subsequent cardioversion, atrial fibrillation has recurred. Additional test results: - Echocardiogram on January 02, 2024: LVEF 60%, normal left ventricular size, severe left atrial dilation, moderate anteriorly directed mitral insufficiency. - Echocardiogram on June 11, 2025: LVEF 35%, mild to moderate global hypokinesis, moderate left atrial enlargement, mild mitral insufficiency. - Serial EKGs from 2020?2023: Sinus rhythm documented. - EKG post-cardioversion (July 2025): Recurrence of atrial fibrillation within hours. Problem list summary: - Persistent atrial fibrillation, refractory to multiple antiarrhythmic therapies. - Nonischemic dilated cardiomyopathy with significant reduction in LVEF over thepast year. - Mitral regurgitation, improved from moderate to mild on most recent imaging. - Labile blood pressure with orthostatic symptoms and history of POTS. - Sleep apnea, intolerant of CPAP therapy. - History of diverticulosis with intermittent GI bleeding. Twelve-lead EKG in the office today shows sinus rhythm at 67 bpm. There is leftaxis deviation. ROS: CONSTITUTIONAL: No fever, no chills, no fatigue, no weight gain, no weight loss HEENT: No hearing loss, no sinus pressure, no visual changes RESPIRATORY: No cough, no shortness of breath, no wheezing CARDIOVASCULAR: Chest pressure (intermittent, brief episodes), palpitations (intermittent, brief episodes), no chest pain, no pain while walking, no edema GASTROINTESTINAL: No abdominal pain, blood in stool (positive, associated with diverticulosis/diverticulitis episodes), no constipation, no diarrhea, no heartburn, no loss of appetite, no nausea, no vomiting GENITOURINARY: No painful urination, no excessive amount of urine, no urinary frequency NEUROLOGICAL: Dizziness (positive, described as "spacing out" or "not quite dizzy" spells, associated with low blood pressure), no extremity numbness, no extremity weakness, no headaches, no seizures, no tremors PSYCHIATRIC: No anxiety, no depression INTEGUMENTARY: No rash, no hives, no breast discharge, no breast lump, no mole changes, no skin lesion MUSCULOSKELETAL: No back pain, no joint pain, no joint swelling, no neck pain HEMATOLOGIC: Easily bleeds (positive, related to blood thinners and diverticulosis), no easy bruising, no lymphedema, no issues with blood clots IMMUNOLOGIC: No food allergies, no seasonal allergies PE: GENERAL APPEARANCE: The patient is alert, oriented, and conversant throughout the encounter. She is able to answer questions appropriately and participate in discussion. No acute distress is observed. Speech is clear and coherent. She is seated comfortably and demonstrates appropriate affect. LUNGS: No increased work of breathing is noted. No mention of abnormal breath sounds orrespiratory distress. Lungs are clear to auscultation bilaterally. CARDIAC: Cardiac auscultation reveals an irregularly irregular rhythm consistent with atrial fibrillation. No murmurs, rubs, or gallops are noted. No peripheral edemais observed. NEUROLOGICAL: The patient is alert and oriented. Speech is fluent and appropriate. No focal neurological deficitsare observed. No gait abnormalities are noted during the encounter. PSYCHIATRIC: Mood and affect are appropriate. The patient is cooperative and demonstrates good insight and judgment. No evidence of anxiety, depression, or agitation is observed. Intake Vital Signs 07/21/25 07:09 07/29/25 11:13 08/07/25 09:09 08/07/25 09:12 Height 5 ft 3 in 5 ft 3 in 5 ft 3 in Weight: 171 lb BP 154/76 H Blood Pressure Location Lt brachial Position Sitting Respiration 20 H Pulse 67 Pulse Source Monitor Intake Visit Reasons: HFrEF Charity Fundraiser Required: No Accompanied by: Daughter Allergies prednisone Allergy (Intermediate, Verified 07/21/25 12:56) Rash ciprofloxacin Adverse Reaction (Intermediate, Verified 07/21/25 12:56) Nausea/Vom/Diarrhea adhesive Adverse Reaction (Verified 07/21/25 12:56) Rash Medications ?Medication ?Instructions ?Recorded ?Confirmed ?Type levothyroxine 125 mcg tablet 125 mcg PO QODAY 11/28/23 08/07/25 History levothyroxine 112 mcg tablet 112 mcg PO QODAY 04/20/25 08/07/25 History apixaban 5 mg tablet (Eliquis) 5 mg PO BID 06/23/25 History citalopram 10 mg tablet 10 mg PO DAILY 06/23/2507/29 History cyclobenzaprine 10 mg tablet 10 mg PO DAILY PRN pain 0 06/23/25 08/07/25 History amiodarone 200 mg tablet 200 mg PO DAILY 30 days #30 tabs 07/21/25 08/07/25 Rx lisinopril 2.5 mg tablet 2.5 mg PO QDAY 30 days #30 t abs 08/07/25 08/07/25 Rx Ejection fraction %: 35 Have you fallen in the past year?: No PFSH Medical History Anxiety Osteoporosis Kidney stones Former smoker Atrial fibrillation Muscular dystrophy Paroxysmal atrial tachycardia Non-rheumatic mitral regurgitation Nonrheumatic mitral (valve) prolapse Paroxysmal atrial fibrillation History of kidney stones Left bundle branch block Eemjeec-Fzomo-Jqsht disease Hypotension Depression Surgical History Hx of thyroidectomy History of appendectomy History of lithotripsy (~10/2017) Hx of cholecystectomy [...] servings: 2 ROS Const Const: Negative for fatigue or weakness Eyes Eyes: Negative for change in vision ENT ENT: Negative for dizziness or balance problems Cardio Chest Pain: No Palpitations: No Edema: None Resp Respiratory: Negative for SOB with activity, SOB at rest or SOB orthopnea\\SOB lying down GI GI: Negative nausea or heartburn Musc Musc: Negative for balance problems Neuro Neuro: Negative for dizziness, lightheadedness, near syncope, syncope or weakness Endo Endo: Negative for fatigue Supplemental Info Supplemental Information Diagnostics: Electrocardiogram Echocardiogram Stress Test Stress Test Nuclear Medicine Chest X-Ray Chest CTA Abdomen Ultrasound Abdomen/Pelvis CT Pulmonary: Pulmonary Function Test Past Visits: Cardiology Visit Today Assessment and Plan Assessment and Plan (1) Paroxysmal atrial fibrillation: Status: Chronic Comment: The patient has a long-standing history of atrial fibrillation (AF) with recurrence despite prior antiarrhythmic therapy (failed flecainide, intolerance to metoprolol) and a recent failed cardioversion. She is currently maintained onamiodarone and Eliquis for rhythm and stroke prevention, respectively. Holter monitoring in June 2025 confirmed persistent AF with a rapid ventricular response (average 104 bpm). The patient remains at high risk for thromboembolic events ([id number] = 5) and has a history of nonischemic cardiomyopathy and mitral regurgitation, both of which may contribute to AF burden and complicate management. The patient reports brief, self-limited episodes of palpitations and "pressure,"but no sustained symptomatic arrhythmias. There is no evidence of hemodynamic instability. She has a history of sleep apnea with poor CPAP tolerance, which delicia known risk factor for AF recurrence. Given her high stroke risk, continued anticoagulation is indicated. The risk- benefit of rhythm versus rate control is complicated by her reduced ejection fraction and intolerance to several antiarrhythmics. The patient does not meet criteria for a Watchman procedure if she is tolerating oral anticoagulation. Amiodarone remains the most viable option for rhythm control at this time. Plan: Diagnostics/Labs: Continue periodic EKG monitoring to assess rhythm status. Repeat echocardiogram in 3 months to reassess left ventricular function and atrial size. Consider sleep study if patient is willing, to reassess for treatable sleep apnea as a modifiable risk factor for AF recurrence. Continue amiodarone 200 mg daily for rhythm control, as tolerated. Continue Eliquis for anticoagulation given [id number] = 5 and absence of absolute contraindications. Monitor for bleeding, especially given history of diverticulosis. Maintain diltiazem for rate control as needed, monitoring for bradycardia or hypotension. (2) HFrEF (heart failure with reduced ejection fraction): Status: Acute Comment: The patient has experienced a significant decline in left ventricular ejection fraction (LVEF) from60% (December 2023) to 35% (May 2025), with associated mildto moderate global hypokinesis. The etiology is likely multifactorial, includingpersistent AF with rapid ventricular response, mitral regurgitation, and possible contribution from hypertension and prior COVID infection. There is no evidenceof ischemic etiology or prior myocardial infarction. The patient is at increased risk for sudden cardiac given LVEF =35%. However, as the decline in EF is recent and may be partially reversible with optimal medical and rhythm management, immediate device therapy (ICD) is deferred pending reassessment after 3 months of optimized therapy. Plan: Diagnostics/Labs: Repeat echocardiogram in 3 months to reassess LVEF and response to therapy. Monitor renal function and electrolytes periodically, especially with initiationof MARGOT inhibitor therapy. Therapeutics/Medications: Initiate low-dose lisinopril (2.5 mg nightly) to reduce afterload and support ventricular remodeling, as tolerated. Titrate as tolerated to target dose per heart failure guidelines. If patient cannottolerate lisinopril due to orthostatic hypotension, dizziness, I recommended patient discontinue lis inopril. (3) Hypertension: Status: Acute Qualifiers: Hypertension type: unspecified Qualified Code(s): I10 - Essential (primary) hypertension Comment: The patient has a history of labile hypertension, with episodes of both elevatedand low blood pressure, complicated by orthostatic symptoms and underlying autonomic dysfunction (possible POTS, Zqxqpzv-Lgdry-Xgaey disease). Blood pressure control is essential to reduce afterload and support ventricular function, but must be balanced against risk of symptomatic hypotension, particularly in the context of heart failure and anticoagulation. Plan: Diagnostics/Labs: Monitor blood pressure at home, including orthostatic measurements. Check renal function and electrolytes prior to and after initiation of MARGOT inhibitor. (4) Non-rheumatic mitral regurgitation: Status: Chronic Comment: The patient has a history of nonrheumatic mitral regurgitation, previously moderate (December 2023), now improved to mild (May 2025) on echocardiogram. Theimprovement may be related to changes in ventricular size and function, as well as rate/rhythm control of AF. The regurgitation is likely functional, secondary to left atrial and ventricular dilation, rather than primary leaflet pathology. There is currently no indication for surgical intervention, as the degree of regurgitation is mild and the patient is asymptomatic from a valvular standpoint. Ongoing management focuses on optimizingheart failure therapy and rhythm control to minimize further ventricular remodeling. Plan: Diagnostics/Labs: Repeat echocardiogram in 3 months to monitor mitral regurgitation severity and ventricular dimensions. Orders: Orders 12 Lead EKG performed by [facility] Today I47.1 - Supraventricular tachycardia, I48.0 - Paroxysmal atrial fibrillation, I50.20 - Unspecified systolic (congestive) heart failure Medications: New lisinopril 2.5 mg PO QDAY 30 tabs 11RF 30 days Plan Details Goals & Barriers: Goals Decrease spasm Decrease radiculopathy Improve ROM Decrease pain Barriers CMT DDD Follow Up: 1 Year Coding Level of Care Code Off vis,est,level 4 Diagnoses Paroxysmal atrial fibrillation I48.0 HFrEF (heart failure with reduced ejection fraction) I50.20 Hypertension, unspecified type I10 Hypertension type: unspecified Non-rheumatic mitral regurgitation I34.0 Coding Level of Care Code Off vis,est,level 4 Diagnoses Paroxysmal atrial fibrillation I48.0 HFrEF (heart failure with reduced ejection fraction) I50.20 Hypertension, unspecified type I10 Hypertension type: unspecified Non-rheumatic mitral regurgitation I34.0 Clinical Quality Measures Falls Risk Screening/Assistive Devices Have you fallen in the past year?: No Cardiac Ejection fraction %: 35 08/07/25 0945 silvina RHODES> Date _ Asim Ruiz MD Cosigner Signature: Date (if applicable) CC: ~ [facility]10-01-2025 Procedure note [facility] Medical Records Department [address] [place] [address] Procedure Report 07/29/25 1337 MR#: [id number] Acct: [id number] Name: DONNA CEJA Rep #:[id number] : 1950 75 From: Mario Marie DO PCP: Dr. Olivier Olmstead MD Status:REG S DC Location: [facility] Procedures Pulmonary Pulmonary Procedures /Diagnostic Testin Con Sedation Non-invasive Procedural Procedure Information Date of Procedure: 07/29/25 Description of procedure: CONSCIOUS SEDATION REPORT DATE OF SERVICE: July 29, 2025 BRIEF HISTORY OF PRESENT ILLNESS: The patient is a 75-year-old female who presented to [facility] to undergo an elective outpatient cardioversion due to underlying atrial fibrillation. The patient denied any prior anesthetic complications. She has never previously undergone a cardioversion. She is systemically anticoagulated on Eliquis. Her last surface echocardiogram demonstrated an ejection fraction of 35%. The patient did report a history of obstructive sleep apnea, for which she eventually became noncompliant with conventional PAP therapy. PHYSICAL EXAMINATION: VITAL SIGNS: Reviewed and were acceptable. GENERAL: The patient is a female, in no apparent distress, speaking infull sentences. HEENT: Normocephalic, atraumatic. Mucous membranes are moist and pink. Good mouth opening noted. Trachea is midline. Good neck mobility. CHEST: S1, S2 irregularly irregular. No murmurs, rubs or gallops were noted. LUNGS: Clear to auscultation bilaterally without appreciable wheezes, rales or rhonchi. ABDOMEN: Soft, nontender, nondistended. Positive bowel sounds. EXTREMITIES: There is no clubbing, cyanosis or edema. ASA Class: II DESCRIPTION OF PROCEDURE: After confirmation of informed consent, the patient's anesthesia plan was reviewed in detail. Propofol was chosen. Risks and benefits were reviewed and the patient agreed to proceed. At 1305, the patient was given 4 mg of etomidate. The patient achieved an appropriate level of sedation and was given a 200 joule synchronized cardioversion by Dr. Scruggs at the bedside. This was successful in achieving normal sinus rhythm. The patient was monitored until 1320, at which time she reached her baseline mental status and function. The patient tolerated the procedure well. COMPLICATIONS: None ESTIMATED BLOOD LOSS: None RECOMMENDATIONS: Okay to recover in usual fashion. 07/29/25 1338 Cosigner Signature (if applicable): CC: Dr. Mario Marie DO; Dr. Anastacio Scruggs MD; Dr. Olivier Olmstead MD~ Signed [facility]09-23-2025 [facility] [address] [place] [address] OFFICE VISIT Date of Service: 07/21/25 MR#: [id number] Acct: [id number] Name: DONNA CEJA Rep #: [id number] : 1950 Provider: JAGRUTI Chandra Age/Sex: 74/F Location: [facility] Status: Signed Agree with assessment and plan. Will reevaluate LVEF after DCC HPI HPI History of Present Illness Details: Donna Ceja is a 74-year-old female that comes in today for monitoring of her cardiovascular disease. Patient has a history of paroxysmal atrial fibrillation. Patient had a pharmacologic nuclear stress test which showed no evidence of ischemia or scar in December 2023. She was seen in ER 06/07/2025 and required IV beta nirmal for management of afibwith RVR. She contacted our office 06/08/2025 and was recommended to discontinue diltiazem and initiate metoprolol. 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 48-hr Holter 06/11/2025 demonstrated 100% atrial fibrillation and flecainide was discontinued. Patient contacted our office with concerns of beta-nirmal and her charcot shima tooth and transitioned back to diltiazem. Patient was hospitalized 06/24-06/28/25 for atrial flutter with RVR. Her arrhythmia was attempted to be treated with calcium channel nirmal and digoxin in which she did not see improvement. She was ultimately treated and dischargedon metoprolol tartrate and amiodarone. She initiated anticoagulation d uring this hospitalization as she previously did not wish to take an anticoagulant secondary to a bleed during an attempted ablation several years ago. Patient reports she was diagnosed with sleep apnea several years ago and could not tolerate treatment. She has not been reevaluated since. Upon presentation today, patient reports worsening in her fatigue. She reports R-sided chest pain that comes and goes located under breast that seemed to be notices after sneezing. She has shortness of breath with activity. Further ROSbelow. Intake Vital Signs 05/18/25 07:19 07/03/25 06:59 07/21/25 07:09 Height 5 ft 3 in 5 ft 3 in 5 ft 3 in Weight: 172 lb BMI 30.4 BP 108/56 L Blood Pressure Location Lt brachial Position Sitting Respiration 18 Pulse 99 Pulse Source Monitor Pulse Oximetry (%) 94 Intake Visit Reasons: 8 W FU Charity Fundraiser Required: No Is patient in pain?: No Allergies prednisone Allergy (Intermediate, Verified 07/21/25 12:56) Rash ciprofloxacin Adverse Reaction (Intermediate, Verified 07/21/25 12:56) Nausea/Vom/Diarrhea adhesive Adverse Reaction (Verified 07/21/25 12:56) Rash Medications ?Medication ?Instructions ?Recorded ?Confirmed ?Type levothyroxine 125 mcg tablet 125 mcg PO QODAY 11/28/23 07/21/25 History levothyroxine 112 mcg tablet 112 mcg PO QODAY 04/20/25 07/21/25 History apixaban 5 mg tablet (Eliquis) 5 mg PO BID 06/23/25 History citalopram 10 mg tablet 10 mg PO DAILY 06/23/2506/30 History cyclobenzaprine 10 mg tablet 10 mg PO DAILY PRN pain 0 06/23/25 07/21/25 History metoprolol tartrate 50 mg tablet 75 mg (1.5 x 50 mg) P O BID 30 days 06/28/25 07/21/25 Rx #90 tabs amiodarone 200 mg tablet 200 mg PO DAILY 30 days #30 tabs 07/21/25 07/21/25 Rx Ejection fraction %: 35 Have you fallen in the past year?: No PFSH Medical History Anxiety Osteoporosis Kidney stones Former smoker Atrial fibrillation Muscular dystrophy Paroxysmal atrial tachycardia Non-rheumatic mitral regurgitation Nonrheumatic mitral (valve) prolapse Paroxysmal atrial fibrillation History of kidney stones Left bundle branch block Hfnkjeg-Vclax-Avnzu disease Hypotension Depression Surgical History Hx of thyroidectomy History of appendectomy History of lithotripsy (~10/2017) Hx of cholecystectomy [...] servings: 2 ROS Const Const: Positive for fatigue; Negative for weakness, headache(s) or frequent falls Eyes Eyes: Negative for blurry vision ENT ENT: Negative for headache(s), dizziness or Nosebleed/epistaxis Cardio Chest Pain: Yes Palpitations: No Edema: None Muscle aches with walking: None Resp Respiratory: Positive for SOB with activity; Negative for SOB at rest or SOB orthopnea\\SOB lying down GI GI: Positive for nausea; Negative vomiting, heartburn, bright, red blood in stools or black,tarry stools : Negative for hematuria Neuro Neuro: Negative for dizziness, lightheadedness, near syncope, syncope, frequent falls, headache(s),weakness or blurry vision Endo Endo: Positive for fatigue Cardiology Exam Const Appearance: cooperative, comfortable, no acute distress and well developed; Negative diaphoretic or ill appearing Nutritional Appearance: obese Orientation: alert and oriented x3 Head Head: normal to inspection, normocephalic and atraumatic Ears: hearing grossly normal bilaterally Nose: external nose normal and Negative epistaxis Face and Sinus: face symmetric Eyes General: appearance normal, both eyes and all related structures Eyelids: eyelids normal Conjunctivae: conjunctivae normal; Negative scleral icterus EOM: EOM intact bilaterally Neck Neck: no JVD Carotids: normal carotid upstroke; Negative bruit Neck Mass: Negative Neck mass Chest Chest inspection: normal respiratory effort; Negative respiratory distress, audible wheezes or tachypneic Auscultation: Bilateral: Clear to Auscultation Cardio Rhythm: irregularly irregular Heart sounds: S1 normal and S2 normal; Negative rub, gallop or murmur GI GI: obese Neuro General: patient alert, patient awake, patient oriented x3 and moves all extremities Skin Skin: no rashes or lesions noted Extremities Pulses: Normal: Right Posterior Tibial Pulse, Left Posterior Tibial Pulse, RightRadial Pulse and Left Radial Pulse Lower Extremity Edema: None: Bilateral Psych Psychological: normal affect Supplemental Info Supplemental Information Echo Complete 06/11/2025 Interpretation Summary Normal LV size. The left ventricular ejection fraction is 35 %. Mild concentric left ventricular hypertrophy. There is mild to moderate global hypokinesis of the left ventricle. The left atrium is moderately enlarged. Echocardiogram 01/02/2024 Interpretation Summary Mild concentric left ventricular hypertrophy. The left ventricular ejection fraction is 60 %. Diastolic function is indeterminate. The left atrium is severely enlarged. The right atrium is mildly enlarged. Moderate (2+) anteriorly directed mitral valve insufficiency. Right ventricular systolic pressure estimated to be 43 mmHg. Stress Test 01/02/2024 Impression: 1. Pharmacologic (Regadenoson) evaluation 2. Peak pharmacologic ECG with no ischemic changes. 3. There were no cardiac dysrhythmias pretest, during pharmacologic infusion, or recovery. 5. Rest and stress SPECT Cardiolite nuclear imaging demonstrate relative uniform tracer uptake and myocardial perfusion appearing within normal limits. 6. The gated Cardiolite study reports an LVEF of 77%. Holter Monitor 01/14/2010 Interpretation Normal sinus rhythm with rare periods of marked sinus arrhythmia. Minimum HR 47 BPM Average HR 73 BPM Maximum HR 109 BPM Rare isolated premature atrial complexes. No runs noted. No isolated premature ventricular complexes. No runs noted. One symptom of palpitations documented in 24 hour holter diary while watching TV. Monitor showed normal sinus rhythm rate 75 BPM without ectopics or ST changes. Cardiac Catheterization 02/27/2006 Final Impression 1. Elevated left ventricular end diastolic pressure compatible with decreased diastolic compliance. 2. Left ventricle: Preserved LV size, wall motion, and systolic function with anestimated LVEF of 65-70%. 3. Left main: Angiographically normal 4. LAD: Angiographically normal 5. LCX: Angiographically normal 6. RCA: Proximal 0-10% minimal luminal irregularities. 7. Mitral valve: Mild mitral regurgitation. Diagnostics: Electrocardiogram Echocardiogram Stress Test Stress Test Nuclear Medicine Chest X-Ray Chest CTA Abdomen Ultrasound Abdomen/Pelvis CT Pulmonary: Pulmonary Function Test Past Visits: Cardiology Visit 07/21/25 Assessment and Plan Assessment and Plan (1) Paroxysmal atrial fibrillation: Status: Chronic Plan: Patient has a history of atrial fibrillation, noticed 18+ years ago. She reports history of attempted ablation that was unable to be completed secondary to location being high risk. Her EKG in officetoday demonstrates atrial flutter with variable AV block at a rate of 98 bpm. 24-hour Holter monitor 07/16/2025 demonstrates 100% atrial fibrillation with average heart rate of 104 bpm. Recent echo demonstrating EF of 35%. She is anticoagulated for CVA protection. Plan: Recommend patient continue amiodarone and metoprolol. Escalation of metoprolol limited secondary to hypotension. Echocardiogram demonstrates left atrium moderately enlarged with normal right atrium. We will plan to attempt DCCV 07/29/2025. Instruction provided and emphasized ongoing compliance with anticoagulation. She is scheduled to meet with EP. Will plan to repeat echo 6- 8weeks after rhythm control. (2) Paroxysmal atrial tachycardia: Status: Acute Plan: Patient has a history of atrial tachycardia. EKG today demonstrates atrial flutter with variable AVblock during today's visit. 24-hour Holter monitor 07/16/2025 demonstrates 100% atrial fibrillation with average heart rate of 104 bpm. Plan: Recommend patient continue metoprolol. Escalation of beta-nirmal limitedsecondary to hypotension. See plan as documented above. Patient is scheduled to meet with EP. (3) Nonrheumatic mitral (valve) prolapse: Status: Acute Plan: Patient has a history of mitral valve prolapse with regurgitation. Her most recent echo 06/11/2025 demonstrated normal mitral valve with Mild (1+) eccentric mitral valve insufficiency. Plan: Will continue to monitor with history, physical exam, and echocardiogram as needed. (4) HFrEF (heart failure with reduced ejection fraction): Status: Acute Plan: Patient has a newly found reduced ejection fraction of 35% 06/11/2025. Etiology uncertain at this time; although, her rate and rhythm has not been well controlled recently. Plan: Will plan to address arrhythmia. Will consider limited echocardiogram to assess for recovery.If recovery is not observed and/or symptoms do not improve with rate/rhythm controlled, will consider further ischemic work-up. Recommend continuing metoprolol. (5) Hypertension: Status: Acute Qualifiers: Hypertension type: unspecified Qualified Code(s): I10 - Essential (primary) hypertension Plan: BP in office today 108/56 Plan: Patient will continue metoprolol. Encourage life style and risk factor modification. Orders: Orders 12 Lead EKG performed by BMS 07/21/25 I48.0 - Paroxysmal atrial fibrillation CBC W/Diff, Automated 07/21/25 I48.0 - Paroxysmal atrial fibrillation Basic Metabolic Profile (BMP) 07/21/25 I48.0 - Paroxysmal atrial fibrillation Cardioversion 07/22/25 I48.0 - Paroxysmal atrial fibrillation Medications: Changed From amiodarone Take 1 tablet twice daily for 3 more days then take 1 tablet daily 200 mg PODAILY 30 days 30 tabs 3RF To amiodarone 200 mg PO DAILY 30 tabs 3RF 30 days Plan 1. Will obtain CBC to assess patient's blood count as she reports 3 days of bright red blood per rectum. Her bleeding has subsided. 2. Cardioversion scheduled for 07/29/2025 at 1215PM. Instructions provided 3. Will plan for repeat echo once achieving rate/rhythm control. Will consider further evaluation and treatment if EF does not improve. She is scheduled to establish with EP. Patient will follow-up in 4 weeks or sooner, if needed. Thank you for allowing me to participate in the care of your patient. Please don't hesitate to callif any issues arise. This note was generated using a voice recognition system and there may be incorrect words, spelling, or punctuation that were not noted when reviewing theoffice note prior to saving. Portions of this documentation were copied and pasted from previous office visitnotes to provide a cohesive continuity of the history. The note has been reviewed, edited, and updated, as necessary. Plan Details Goals & Barriers: Goals Decrease spasm Decrease radiculopathy Improve ROM Decrease pain Barriers CMT DDD Follow Up: 4 Weeks (SRD) Coding Level of Care Code Off vis,est,level 4 Diagnoses Paroxysmal atrial fibrillation I48.0 Paroxysmal atrial tachycardia I47.1 Nonrheumatic mitral (valve) prolapse I34.1 HFrEF (heart failure with reduced ejection fraction) I50.20 Hypertension, unspecified type I10 Hypertension type: unspecified Coding Level of Care Code Off vis,est,level 4 Diagnoses Paroxysmal atrial fibrillation I48.0 Paroxysmal atrial tachycardia I47.1 Nonrheumatic mitral (valve) prolapse I34.1 HFrEF (heart failure with reduced ejection fraction) I50.20 Hypertension, unspecified type I10 Hypertension type: unspecified Clinical Quality Measures Falls Risk Screening/Assistive Devices Have you fallen in the past year?: No Cardiac Ejection fraction %: 35 07/27/25 0547 r PA> Date _ Arnie CHAND 07/27/251914 Cosigner Signature: Date (if applicable) Anastacio Scruggs MD CC: Dr. Olivier Olmstead MD ~ [facility]09-23-2025 Progress note Author Arnie Garcia [facility] Services Note Date/Time July 21, 2025 2:08pm [facility] [address] [place], [place] [address] OFFICE VISIT Date of Service: 07/21/25 MR#: [id number] Acct: [id number] Name: DONNA CEJA Rep #: [id number] : 1950 Provider: JAGRUTI Chandra Age/Sex: 74/F Location: [facility] Status: Signed <Statement entered by Anastacio Scruggs MD - 07/27/25 19:15> Agree with assessment and plan. Will reevaluate LVEF after DCC HPI HPI History of Present Illness Details: Donna Ceja is a 74-year-old female that comes in today for monitoring of her cardiovascular disease. Patient has a history of paroxysmal atrial fibrillation. Patient had a pharmacologic nuclear stress test which showed no evidence of ischemia or scar in December 2023. She was seen in ER 06/07/2025 and required IV beta nirmal for management of afibwith RVR. She contacted our office 06/08/2025 and was recommended to discontinue diltiazem and initiate metoprolol. She reported concerns of metoprolol and interaction with her Сергей Willingham. 48-hr Holter 06/11/2025 demonstrated 100% atrial fibrillation and flecainide was discontinued. Patient contacted our office with concerns of beta-nirmal and her сергей willingham and transitioned back to diltiazem. Patient was hospitalized 06/24-06/28/25 for atrial flutter with RVR. Her arrhythmia was attempted to be treated with calcium channel nirmal and digoxin in which she did not see improvement. She was ultimately treated and dischargedon metoprolol tartrate and amiodarone. She initiated anticoagulation during this hospitalization as she previously did not wish to take an anticoagulant secondary to a bleed during an attempted ablation several years ago. Patient reports she was diagnosed with sleep apnea several years ago and could not tolerate treatment. She has not been reevaluated since. Upon presentation today, patient reports worsening in her fatigue. She reports R-sided chest pain that comes and goes located under breast that seemed to be notices after sneezing. She has shortness of breath with activity. Further ROSbelow. Intake Vital Signs 05/18/25 07:19 07/03/25 06:59 07/21/25 07:09 Height 5 ft 3 in 5 ft 3 in 5 ft 3 in Weight: 172 lb BMI 30.4 BP 108/56 L Blood Pressure Location Lt brachial Position Sitting Respiration 18 Pulse 99 Pulse Source Monitor Pulse Oximetry (%) 94 Intake Visit Reasons: 8 W FU Charity Fundraiser Required: No Is patient in pain?: No Allergies prednisone Allergy (Intermediate, Verified 07/21/25 12:56) Rash ciprofloxacin Adverse Reaction (Intermediate, Verified 07/21/25 12:56) Nausea/Vom/Diarrhea adhesive Adverse Reaction (Verified 07/21/25 12:56) Rash Medications ?Medication ?Instructions ?Recorded ?Confirmed ?Type levothyroxine 125 mcg tablet 125 mcg PO QODAY 11/28/23 07/21/25 History levothyroxine 112 mcg tablet 112 mcg PO QODAY 04/20/25 07/21/25 History apixaban 5 mg tablet (Eliquis) 5 mg PO BID 06/23/25 History citalopram 10 mg tablet 10 mg PO DAILY 06/23/2506/30 History cyclobenzaprine 10 mg tablet 10 mg PO DAILY PRN pain 0 06/23/25 07/21/25 History metoprolol tartrate 50 mg tablet 75 mg (1.5 x 50 mg) P O BID 30 days 06/28/25 07/21/25 Rx #90 tabs amiodarone 200 mg tablet 200 mg PO DAILY 30 days #30 tabs 07/21/25 07/21/25 Rx Ejection fraction %: 35 Have you fallen in the past year?: No PFSH Medical History Anxiety Osteoporosis Kidney stones Former smoker Atrial fibrillation Muscular dystrophy Paroxysmal atrial tachycardia Non-rheumatic mitral regurgitation Nonrheumatic mitral (valve) prolapse Paroxysmal atrial fibrillation History of kidney stones Left bundle branch block Labdqap-Zmefw-Oqgzv disease Hypotension Depression Surgical History Hx of thyroidectomy History of appendectomy History of lithotripsy (~10/2017) Hx of cholecystectomy [...] servings: 2 ROS Const Const: Positive for fatigue; Negative for weakness, headache(s) or frequent falls Eyes Eyes: Negative for blurry vision ENT ENT: Negative for headache(s), dizziness or Nosebleed/epistaxis Cardio Chest Pain: Yes Palpitations: No Edema: None Muscle aches with walking: None Resp Respiratory: Positive for SOB with activity; Negative for SOB at rest or SOB orthopnea\\SOB lying down GI GI: Positive for nausea; Negative vomiting, heartburn, bright, red blood in stools or black,tarry stools : Negative for hematuria Neuro Neuro: Negative for dizziness, lightheadedness, near syncope, syncope, frequent falls, headache(s), weakness or blurry vision Endo Endo: Positive for fatigue Cardiology Exam Const Appearance: cooperative, comfortable, no acute distress and well developed; Negative diaphoretic or ill appearing Nutritional Appearance: obese Orientation: alert and oriented x3 Head Head: normal to inspection, normocephalic and atraumatic Ears: hearing grossly normal bilaterally Nose: external nose normal and Negative epistaxis Face and Sinus: face symmetric Eyes General: appearance normal, both eyes and all related structures Eyelids: eyelids normal Conjunctivae: conjunctivae normal; Negative scleral icterus EOM: EOM intact bilaterally Neck Neck: no JVD Carotids: normal carotid upstroke; Negative bruit Neck Mass: Negative Neck mass Chest Chest inspection: normal respiratory effort; Negative respiratory distress, audible wheezes or tachypneic Auscultation: Bilateral: Clear to Auscultation Cardio Rhythm: irregularly irregular Heart sounds: S1 normal and S2 normal; Negative rub, gallop or murmur GI GI: obese Neuro General: patient alert, patient awake, patient oriented x3 and moves all extremities Skin Skin: no rashes or lesions noted Extremities Pulses: Normal: Right Posterior Tibial Pulse, Left Posterior Tibial Pulse, RightRadial Pulse and Left Radial Pulse Lower Extremity Edema: None: Bilateral Psych Psychological: normal affect Supplemental Info Supplemental Information Echo Complete 06/11/2025 Interpretation Summary Normal LV size. The left ventricular ejection fraction is 35 %. Mild concentric left ventricular hypertrophy. There is mild to moderate global hypokinesis of the left ventricle. The left atrium is moderately enlarged. Echocardiogram 01/02/2024 Interpretation Summary Mild concentric left ventricular hypertrophy. The left ventricular ejection fraction is 60 %. Diastolic function is indeterminate. The left atrium is severely enlarged. The right atrium is mildly enlarged. Moderate (2+) anteriorly directed mitral valve insufficiency. Right ventricular systolic pressure estimated to be 43 mmHg. Stress Test 01/02/2024 Impression: 1. Pharmacologic (Regadenoson) evaluation 2. Peak pharmacologic ECG with no ischemic changes. 3. There were no cardiac dysrhythmias pretest, during pharmacologic infusion, or recovery. 5. Rest and stress SPECT Cardiolite nuclear imaging demonstrate relative uniform tracer uptake and myocardial perfusion appearing within normal limits. 6. The gated Cardiolite study reports an LVEF of 77%. Holter Monitor 01/14/2010 Interpretation Normal sinus rhythm with rare periods of marked sinus arrhythmia. Minimum HR 47 BPM Average HR 73 BPM Maximum HR 109 BPM Rare isolated premature atrial complexes. No runs noted. No isolated premature ventricular complexes. No runs noted. One symptom of palpitations documented in 24 hour holter diary while watching TV. Monitor showed normal sinus rhythm rate 75 BPM without ectopics or ST changes. Cardiac Catheterization 02/27/2006 Final Impression 1. Elevated left ventricular end diastolic pressure compatible with decreased diastolic compliance. 2. Left ventricle: Preserved LV size, wall motion, and systolic function with anestimated LVEF of 65-70%. 3. Left main: Angiographically normal 4. LAD: Angiographically normal 5. LCX: Angiographically normal 6. RCA: Proximal 0-10% minimal luminal irregularities. 7. Mitral valve: Mild mitral regurgitation. Diagnostics: Electrocardiogram Echocardiogram Stress Test Stress Test Nuclear Medicine Chest X-Ray Chest CTA Abdomen Ultrasound Abdomen/Pelvis CT Pulmonary: Pulmonary Function Test Past Visits: Cardiology Visit 07/21/25 Assessment and Plan Assessment and Plan (1) Paroxysmal atrial fibrillation: Status: Chronic Plan: Patient has a history of atrial fibrillation, noticed 18+ years ago. She reports history of attempted ablation that was unable to be completed secondary to location being high risk. Her EKG in office today demonstrates atrial flutter with variable AV block at a rate of 98 bpm. 24-hour Holter monitor 07/16/2025 demonstrates 100% atrial fibrillation with average heart rate of 104 bpm. Recent echo demonstrating EF of 35%. She is anticoagulated for CVA protection. Plan: Recommend patient continue amiodarone and metoprolol. Escalation of metoprolol limited secondary to hypotension. Echocardiogram demonstrates left atrium moderately enlarged with normal right atrium. We will plan to attempt DCCV 07/29/2025. Instruction provided and emphasized ongoing compliance with anticoagulation. She is scheduled to meet with EP. Will plan to repeat echo 6-8weeks after rhythm control. (2) Paroxysmal atrial tachycardia: Status: Acute Plan: Patient has a history of atrial tachycardia. EKG today demonstrates atrial flutter with variable AV block during today's visit. 24-hour Holter monitor 07/16/2025 demonstrates 100% atrial fibrillation with average heart rate of 104 bpm. Plan: Recommend patient continue metoprolol. Escalation of beta-nirmal limitedsecondary to hypotension. See plan as documented above. Patient is scheduled to meet with EP. (3) Nonrheumatic mitral (valve) prolapse: Status: Acute Plan: Patient has a history of mitral valve prolapse with regurgitation. Her most recent echo 06/11/2025 demonstrated normal mitral valve with Mild (1+) eccentric mitral valve insufficiency. Plan: Will continue to monitor with history, physical exam, and echocardiogram as needed. (4) HFrEF (heart failure with reduced ejection fraction): Status: Acute Plan: Patient has a newly found reduced ejection fraction of 35% 06/11/2025. Etiology uncertain at this time; although, her rate and rhythm has not been well controlled recently. Plan: Will plan to address arrhythmia. Will consider limited echocardiogram to assess for recovery. If recovery is not observed and/or symptoms do not improve with rate/rhythm controlled, will consider further ischemic work-up. Recommend continuing metoprolol. (5) Hypertension: Status: Acute Qualifiers: Hypertension type: unspecified Qualified Code(s): I10 - Essential (primary) hypertension Plan: BP in office today 108/56 Plan: Patient will continue metoprolol. Encourage life style and risk factor modification. Orders: Orders 12 Lead EKG performed by [facility] 07/21/25 I48.0 - Paroxysmal atrial fibrillation CBC W/Diff, Automated 07/21/25 I48.0 - Paroxysmal atrial fibrillation Basic Metabolic Profile (BMP) 07/21/25 I48.0 - Paroxysmal atrial fibrillation Cardioversion 07/22/25 I48.0 - Paroxysmal atrial fibrillation Medications: Changed From amiodarone Take 1 tablet twice daily for 3 more days then take 1 tablet daily 200 mg PODAILY 30 days 30 tabs 3RF To amiodarone 200 mg PO DAILY 30 tabs 3RF 30 days Plan 1. Will obtain CBC to assess patient's blood count as she reports 3 days of bright red blood per rectum. Her bleeding has subsided. 2. Cardioversion scheduled for 07/29/2025 at 1215PM. Instructions provided 3. Will plan for repeat echo once achieving rate/rhythm control. Will consider further evaluation and treatment if EF does not improve. She is scheduled to establish with EP. Patient will follow-up in 4 weeks or sooner, if needed. Thank you for allowing me to participate in the care of your patient. Please don't hesitate to call if any issues arise. This note was generated using a voice recognition system and there may be incorrect words, spelling, or punctuation that were not noted when reviewing theoffice note prior to saving. Portions of this documentation were copied and pasted from previous office visitnotes to provide a cohesive continuity of the history. The note has been reviewed, edited, and updated, as necessary. Plan Details Goals & Barriers: Goals Decrease spasm Decrease radiculopathy Improve ROM Decrease pain Barriers CMT DDD Follow Up: 4 Weeks (SRD) Coding Level of Care Code Off vis,est,level 4 Diagnoses Paroxysmal atrial fibrillation I48.0 Paroxysmal atrial tachycardia I47.1 Nonrheumatic mitral (valve) prolapse I34.1 HFrEF (heart failure with reduced ejection fraction) I50.20 Hypertension, unspecified type I10 Hypertension type: unspecified Coding Level of Care Code Off vis,est,level 4 Diagnoses Paroxysmal atrial fibrillation I48.0 Paroxysmal atrial tachycardia I47.1 Nonrheumatic mitral (valve) prolapse I34.1 HFrEF (heart failure with reduced ejection fraction) I50.20 Hypertension, unspecified type I10 Hypertension type: unspecified Clinical Quality Measures Falls Risk Screening/Assistive Devices Have you fallen in the past year?: No Cardiac Ejection fraction %: 35 07/27/25 0547 <Electronically signed by Arnie CHAND> Date _ Arnie CHAND 07/27/25 191<Electronically signed by Anastacio Scruggs MD> [facility] Signature: Date (if applicable) Anastacio Scruggs MD CC: Dr. Olivier Olmstead MD ~ [facility] Work Phone: 1(653) 805-467808-31-2025 [facility]08-31-2025 Discharge summary Author Juan J Gerardo [facility] Note Date/Time June 28, 2025 11 :31am [facility] Medical Records Department [address] [place] [address] Instructions for Home/Discharge Instructions 06/28/25 1125 MR#: [id number] Acct: [id number] Name: DONNA CEJA Rep #:[id number] 3 : 1950 74 From: Juan J saab MD PCP: Dr. Olivier Olmstead MD Status:ADM I N Discharge Instructions DC O2, CPAP, BIPAP needs Home O2 Discharge instructions: No Dressing / Incision Discharge Activity: Return to Normal Activity Dressing / Incision Call your doctor if you observe: Fever of 101 or Higher, Shortness of breath, Dizziness, Fainting spells, Swelling in the ankles, Chest pain and Increased palpitations (irregular heartbeat) Follow Up Care Test Results: Test results from this visit will be discussed in further detail at your follow- up appointment, if applicable. Discharge Plan Admission Admit Date/Time: 06/24/25 15:12 Attending Provider: Juan J Gerardo Primary Care Provider: Olivier Olmstead [employer] Providers: Tristen Lema; Donnell Matamoros; Lyn Lamas; Viki Miranda; Page Underwood; Killian Rivera; Ernesto Dudley; Jose Gomez; Garo Delcid; James Denis; Anastacio Scruggs; Clayton Pearson; Lily Andrade; Asim Ruiz; Jose Mccall; Jordon Saunders NP; Sondra Bhatia; Arnie Garcia; Garo Monzon Discharge Orders/Prescriptions Prescriptions: New amiodarone 200 mg Tablet 200 mg PO DAILY 30 Days Qty: 30 3RF Rx Instructions: Take 1 tablet twice daily for 3 more days then take 1 tablet daily metoprolol tartrate 50 mg tablet 75 mg PO BID 30 Days Qty: 90 0RF Continued levothyroxine 125 mcg tablet 125 mcg PO QODAY Patient Comments: alternating with 112mcg Rx Instructions: qod levothyroxine 112 mcg tablet 112 mcg PO QODAY Patient Comments: alternating with 125mcg cyclobenzaprine 10 mg tablet 10 mg PO DAILY PRN (Reason: pain) citalopram 10 mg tablet 10 mg PO DAILY Eliquis 5 mg tablet 5 mg PO BID Discontinued metoprolol tartrate 50 mg tablet 50 mg PO Q12H diltiazem HCl [Cartia XT] 120 mg capsule,extended release 24hr 120 mg PO QDAY Qty: 90 3RF Referrals / Follow Up: Olivier Olmstead Chi, MD [Primary Care Provider] - Arnie Garcia PA [Med Staff - [facility] Practice Prof] - Within 2 Weeks Disposition Disposition (needs filled in before D/C Order can be placed): Home, Self Care 06/28/25 1131<Electronically signed by Juan J Gerardo MD>Juan J Gerardo MD CC: INSTALLATION SUPERINTENDENT-Sukh Saunders; Dr. Lyn Lamas MD; Dr. Donnell Matamoros MD; Dr. Tristen Lema MD; Dr. Page Underwood MD; Dr. Viki Miranda MD; Dr. Killian Rivera MD; Dr. Ernesto Dudley MD; Dr. Jose Gomez MD; Dr. Garo Delcid DO; Dr. Garo Monzon DO; Dr. James Denis MD; Dr. Anastacio Scruggs MD; Dr. Clayton Pearson MD; Dr. Jose Mccall MD; Dr. Lily Andrade MD; Dr. Asim Ruiz MD; Dr. Olivier Olmstead MD; JAGRUTI Baird; JAGRUTI Hernandes ~ Signed [facility] Work Phone: 1(775) 709-661208-31-2025 Discharge summary [facility] Medical Records Department [address] [place] [address] Instructions for Home/Discharge Instructions 06/28/25 1125 MR#: [id number] Acct: [id number] Name: DONNA CEJA Rep #:[id number] 3 : 1950 74 From: Juan J saab MD PCP: Dr. Olivier Olmstead MD Status:ADM I N Discharge Instructions DC O2, CPAP, BIPAP needs Home O2 Discharge instructions: No Dressing / Incision Discharge Activity: Return to Normal Activity Dressing / Incision Call your doctor if you observe: Fever of 101 or Higher, Shortness of breath, Dizziness, Fainting spells, Swelling in the ankles, Chest pain and Increased palpitations (irregular heartbeat) Follow Up Care Test Results: Test results from this visit will be discussed in further detail at your follow- up appointment, if applicable. Discharge Plan Admission Admit Date/Time: 06/24/25 15:12 Attending Provider: Juan J Gerardo Primary Care Provider: Olivier Olmstead [employer] Providers: Tristen Lema; Donnell Matamoros; Lyn Lamas; Viki Miranda; Page Unedrwood; Killian Rivera; Ernesto Dudley; Jose Gomez; Garo Delcid; James Denis; Anastacio Scruggs; Clayton Pearson; Lily Andrade; Asim Ruiz; Jose Mccall; Jordon Saunders NP; Sondra Bhatia; Arnie Garcia; Garo Monzon Discharge Orders/Prescriptions Prescriptions: New amiodarone 200 mg Tablet 200 mg PO DAILY 30 Days Qty: 30 3RF Rx Instructions: Take 1 tablet twice daily for 3 more days then take 1 tablet daily metoprolol tartrate 50 mg tablet 75 mg PO BID 30 Days Qty: 90 0RF Continued levothyroxine 125 mcg tablet 125 mcg PO QODAY Patient Comments: alternating with 112mcg Rx Instructions: qod levothyroxine 112 mcg tablet 112 mcg PO QODAY Patient Comments: alternating with 125mcg cyclobenzaprine 10 mg tablet 10 mg PO DAILY PRN (Reason: pain) citalopram 10 mg tablet 10 mg PO DAILY Eliquis 5 mg tablet 5 mg PO BID Discontinued metoprolol tartrate 50 mg tablet 50 mg PO Q12H diltiazem HCl [Cartia XT] 120 mg capsule,extended release 24hr 120 mg PO QDAY Qty: 90 3RF Referrals / Follow Up: Olivier Olmstead Chi, MD [Primary Care Provider] - Arnie Garcia PA [Med Staff - [facility] Practice Prof] - Within 2 Weeks Disposition Disposition (needs filled in before D/C Order can be placed): Home, Self Care 06/28/25 1131Nicalberto Gerardo MD CC: INSTALLATION SUPERINTENDENT-Sukh Saunders; Dr. Lyn Lamas MD; Dr. Donnell Matamoros MD; Dr. Tristen Lema MD; Dr. Page Underwood MD; Dr. Viki Miranda MD; Dr. Killian Rivera MD; Dr. Ernesto Dudley MD; Dr. Jose Gomez MD; Dr.David Erinn Delcid DO; Dr. Garo Monzon DO; Dr. James Denis MD; Dr. Anastacio Scruggs MD; Dr. Clayton Pearson MD; Dr. Jose Mccall MD; Dr. Lily Andrade MD; Dr. Asim Ruiz MD; Dr. Olivier Olmstead MD; JAGRUTI Baird; JAGRUTI Hernandes ~ Signed [facility]08-30-2025 Progress note Author Juan J Gerardo [facility] Note Date/Time June 27, 2025 4: 21pm [facility] Medical Records Department [address] [place] [address] Progress Note - Hospitalist 06/27/25 1619 MR#: [id number] Acct: [id number] Name: DONNA CEJA Rep #:[id number] 5 : 1950 74 From: Juan J saab MD PCP: Dr. Olivier Olmstead MD Status:ADM I N Location: [place] [address] Subjective Subjective Discussed her issues were on metoprolol, and she thought that the metoprolol wasleading to her abdominal hardness, discussed that that is not a side effect of metoprolol generally and that he might be a better medication to try to control her heart rate. Will trial it today Objective Data Objective Data Vital Signs: Vital Signs Temp Pulse Resp BP Pulse Ox O2 Del Method O2 Flow Rate 98.1 F 130 H 18 110/74 94 Room Air 2 06/27/25 09:30 06/27/25 09:30 06/27/25 09:30 06/27/25 09:30 06/27/25 09:30 06/27/25 14:59 06/24/25 08:18 Oxygen Flow Rate (L/min) 2 Oxygen Delivery Method Room Air Weight: 167 lb 8.821 oz Body Mass Index (BMI) 29.7 Intake & Output: Intake and Output for Last 24 Hours 06/26/25 06/27/25 06/28/25 03:59 03:59 03:59 Intake Total 1231.16 / 1231.16 720 / 720 360 / 360 Balance 1231.16 / 1231.16 720 / 720 360 / 360 Lab / Micro Data 06/27/25 05:36 06/27/25 05:36 Labs: Laboratory Results - last 24 hr 06/27/25 05:36: WBC 4.9, RBC 4.04 L, Hgb 13.3, Hct 39.7, MCV 98.3, MCH 32.9 H, MCHC 33.5, RDW Std Deviation 46.5 H, RDW Coeff of Viktoria 13.0, Plt Count 264, MPV 10.5, Immature Gran % (Auto) 0.200, Neut % (Auto) 56.1, Lymph % (Auto) 31.6, [place] % (Auto) 7.8, Eos % (Auto) 3.7, Baso % (Auto) 0.6, Absolute Neuts (auto) 2.7, Absolute Lymphs (auto) 1.54, Nucleated RBC % 0, Sodium 141, Potassium 4.8, Chloride 105, Carbon Dioxide 28.1, Anion Gap 8, BUN 17, Creatinine 0.65 L, EstimCreat Clear Calc 58.40, Est GFR (MDRD) Non-Af 91, BUN/Creatinine Ratio 26.5 H, Glucose 104 H, Calcium 9.7 Physical Exam Narrative General: Alert, Oriented x3, Cooperative, No apparent distress HEENT: Atraumatic, PERRLA, EOMI, Normocephalic Oral: Moist Mucosa Neck: Supple, No JVD Lungs: Diminished, Normal air movement, No rhonchi, No wheeze, No rales Cardiovascular: Irregular rate and rhythm, Normal S1, Normal S2, No murmurs Abdomen: Soft, Non Tender, Non-Distended, No Hepato-splenomegaly Extremities: No edema, Capillary Refill Less than 3 Seconds Skin: No rashes, No breakdown Musculoskeletal: No Tenderness to Palpation of Joints or Extremities Neurological: No focal neurological deficits, moves all extremities, sensation intact Psych/Mental Status: Normal Affect, Appropriate Assessment & Plan Assessment/Plan (1) Atrial flutter with rapid ventricular response: PLAN: Plan 1. Paroxysmal A-fib with RVR/essential HTN/HLD/chronic systolic CHF ? Continue on Eliquis ? Cardiology has been consulted no need to repeat echo as this was done recently ?Continue with amiodarone at 200 mg p.o. twice daily ? Will transition her from Cardizem to metoprolol ? Echo 35% EF and global hypokinesis of the left ventricle, and because of the reduced EF she can no longer take flecainide 2. Hypothyroidism ? Stable ? Continue with Synthroid 3. Anxiety/depression ? Stable ? Continue with her home medications 4. Zyvwkib-Trcgx-Dyqme with muscular dystrophy ? Continue with PT and OT evaluation DVT: Eliquis Charges/Coding Visit Charges Inpatient E&M: 00590 Subs Hosp L2 06/27/25 1621 <Electronically signed by Juan J Gerardo MD> Cosigner Signature (if applicable): CC: ~ Signed [facility] Work Phone: 1(390) 176-353108-30-2025 Progress note [facility] Medical Records Department [address] [place] [address] Progress Note - Hospitalist 06/27/25 1619 MR#: [id number] Acct: [id number] Name: DONNA CEJA Rep #:[id number] 5 : 1950 74 From: Juan J saab MD PCP: Dr. Olivier Olmstead MD Status:ADM I N Location: [place] [address] Subjective Subjective Discussed her issues were on metoprolol, and she thought that the metoprolol wasleading to her abdominal hardness, discussed that that is not a side effect of metoprolol generally and that he might be a better medication to try to control her heart rate. Will trial it today Objective Data Objective Data Vital Signs: Vital Signs Temp Pulse Resp BP Pulse Ox O2 Del Method O2 Flow Rate 98.1 F 130 H 18 110/74 94 Room Air 2 06/27/25 09:30 06/27/25 09:30 06/27/25 09:30 06/27/25 09:30 06/27/25 09:30 06/27/25 14:59 06/24/25 08:18 Oxygen Flow Rate (L/min) 2 Oxygen Delivery Method Room Air Weight: 167 lb 8.821 oz Body Mass Index (BMI) 29.7 Intake & Output: Intake and Output for Last 24 Hours 06/26/25 06/27/25 06/28/25 03:59 03:59 03:59 Intake Total 1231.16 / 1231.16 720 / 720 360 / 360 Balance 1231.16 / 1231.16 720 / 720 360 / 360 Lab / Micro Data 06/27/25 05:36 06/27/25 05:36 Labs: Laboratory Results - last 24 hr 06/27/25 05:36: WBC 4.9, RBC 4.04 L, Hgb 13.3, Hct 39.7, MCV 98.3, MCH 32.9 H, MCHC 33.5, RDW Std Deviation 46.5 H, RDW Coeff of Viktoria 13.0, Plt Count 264, MPV 10.5, Immature Gran % (Auto) 0.200, Neut % (Auto) 56.1, Lymph % (Auto) 31.6, [place] Joseph % (Auto) 7.8, Eos % (Auto) 3.7, Baso % (Auto) 0.6, AbsoluteNeuts (auto) 2.7, Absolute Lymphs (auto) 1.54, Nucleated RBC % 0, Sodium 141, Potassium 4.8, Chloride 105, Carbon Dioxide 28.1, Anion Gap 8, BUN 17, Creatinine 0.65 L, EstimCreat Clear Calc 58.40, Est GFR (MDRD) Non-Af 91, BUN/Creatinine Ratio 26.5 H, Glucose 104 H, Calcium 9.7 Physical Exam Narrative General: Alert, Oriented x3, Cooperative, No apparent distress HEENT: Atraumatic, PERRLA, EOMI, Normocephalic Oral: Moist Mucosa Neck: Supple, No JVD Lungs: Diminished, Normal air movement, No rhonchi, No wheeze, No rales Cardiovascular: Irregular rate and rhythm, Normal S1, Normal S2, No murmurs Abdomen: Soft, Non Tender, Non-Distended, No Hepato-splenomegaly Extremities: No edema, Capillary Refill Less than 3 Seconds Skin: No rashes, No breakdown Musculoskeletal: No Tenderness to Palpation of Joints or Extremities Neurological: No focal neurological deficits, moves all extremities, sensation intact Psych/Mental Status: Normal Affect, Appropriate Assessment & Plan Assessment/Plan (1) Atrial flutter with rapid ventricular response: PLAN: Plan 1. Paroxysmal A-fib with RVR/essential HTN/HLD/chronic systolic CHF ? Continue on Eliquis ? Cardiology has been consulted no need to repeat echo as this was done recently ?Continue with amiodarone at 200 mg p.o. twice daily ? Will transition her from Cardizem to metoprolol ? Echo 35% EF and global hypokinesis of the left ventricle, and because of the reduced EF she can no longer take flecainide 2. Hypothyroidism ? Stable ? Continue with Synthroid 3. Anxiety/depression ? Stable ? Continue with her home medications 4. Cnlfgew-Xnqyx-Svnjy with muscular dystrophy ? Continue with PT and OT evaluation DVT: Eliquis Charges/Coding Visit Charges Inpatient E&M: 50093 Subs Hosp L2 06/27/25 1621 Cosigner Signature (if applicable): CC: ~ Signed [facility]08-29-2025 Progress note Author Juan J Gerardo [facility] Note Date/Time June 26, 2025 4: 38pm [facility] Medical Records Department [address] [place] [address] Progress Note - Hospitalist 06/26/25 1636 MR#: [id number] Acct: [id number] Name: DONNA CEJA Rep #:[id number] 8 : 1950 74 From: Juan J saab MD PCP: Dr. Olivier Olmstead MD Status:ADM I N Location: [place] [address] Subjective Subjective Remains in A-fib at 130. Denies any chest pain or lightheadedness Objective Data Objective Data Vital Signs: Vital Signs Temp Pulse Resp BP Pulse Ox O2 Del Method O2 Flow Rate 98.6 F 129 H 16 127/75 H 97 Room Air 2 06/26/25 16:23 06/26/25 16:23 06/26/25 16:23 06/26/25 16:23 06/26/25 16:23 06/26/25 16:23 06/24/25 08:18 Oxygen Flow Rate (L/min) 2 Oxygen Delivery Method Room Air Weight: 164 lb 14.492 oz Body Mass Index (BMI) 29.2 Intake & Output: Intake and Output for Last 24 Hours 06/25/25 06/26/25 06/27/25 03:59 03:59 03:59 Intake Total 2350.92 / 2365.92 1231.16 / 1231.16 360 / 360 Output Total 350 / 350 Balance 1231.16 / 1231.16 360 / 360 Lab / Micro Data 06/25/25 04:52 06/25/25 04:52 Physical Exam Narrative General: Alert, Oriented x3, Cooperative, No apparent distress HEENT: Atraumatic, PERRLA, EOMI, Normocephalic Oral: Moist Mucosa Neck: Supple, No JVD Lungs: Diminished, Normal air movement, No rhonchi, No wheeze, No rales Cardiovascular: Irregular rate and rhythm, Normal S1, Normal S2, No murmurs Abdomen: Soft, Non Tender, Non-Distended, No Hepato-splenomegaly Extremities: No edema, Capillary Refill Less than 3 Seconds Skin: No rashes, No breakdown Musculoskeletal: No Tenderness to Palpation of Joints or Extremities Neurological: No focal neurological deficits, moves all extremities, sensation intact Psych/Mental Status: Normal Affect, Appropriate Assessment & Plan Assessment/Plan (1) Atrial flutter with rapid ventricular response: PLAN: Plan 1. Paroxysmal A-fib with RVR/essential HTN/HLD/chronic systolic CHF ? Continue on Eliquis ? Cardiology has been consulted no need to repeat echo as this was done recently ? Cardizem drip has been discontinued, initially she was transition to p.o. Cardizem of 240 mg daily however cardiology altered this to 120 mg p.o. twice daily and she has also been started on digoxin however since she remained in rapid A-fib, I discussed with cardiology about transitioning to amiodarone whichthey agree therefore we will trial her on 200 mg p.o. twice daily with the firstdose now and discontinue digoxin. ? Echo 35% EF and global hypokinesis of the left ventricle, and because of the reduced EF she can no longer take flecainide 2. Hypothyroidism ? Stable ? Continue with Synthroid 3. Anxiety/depression ? Stable ? Continue with her home medications 4. Jzukmdv-Mvcqg-Afwco with muscular dystrophy ? Continue with PT and OT evaluation DVT: Eliquis Charges/Coding Visit Charges Inpatient E&M: 17224 Subs Hosp L2 06/26/25 1638 <Electronically signed by Juan J Gerardo MD> Cosigner Signature (if applicable): CC: ~ Signed [facility] Work Phone: 1(787) 533-920308-29-2025 Progress note [facility] Medical Records Department [address] [place] [address] Progress Note - Hospitalist 06/26/25 1636 MR#: [id number] Acct: [id number] Name: DONNA CEJA Rep #:[id number] 8 : 1950 74 From: Juan J saab MD PCP: Dr. Olivier Olmstead MD Status:ADM I N Location: [place] [address] Subjective Subjective Remains in A-fib at 130. Denies any chest pain or lightheadedness Objective Data Objective Data Vital Signs: Vital Signs Temp Pulse Resp BP Pulse Ox O2 Del Method O2 Flow Rate 98.6 F 129 H 16 127/75 H 97 Room Air 2 06/26/25 16:23 06/26/25 16:23 06/26/25 16:23 06/26/25 16:23 06/26/25 16:23 06/26/25 16:23 06/24/25 08:18 Oxygen Flow Rate (L/min) 2 Oxygen Delivery Method Room Air Weight: 164 lb 14.492 oz Body Mass Index (BMI) 29.2 Intake & Output: Intake and Output for Last 24 Hours 06/25/25 06/26/25 06/27/25 03:59 03:59 03:59 Intake Total 2350.92 / 2365.92 1231.16 / 1231.16 360 / 360 Output Total 350 / 350 Balance 1999.92 / 2014.92 1231.16 / 1231.16 360 / 360 Lab / Micro Data 06/25/25 04:52 06/25/25 04:52 Physical Exam Narrative General: Alert, Oriented x3, Cooperative, No apparent distress HEENT: Atraumatic, PERRLA, EOMI, Normocephalic Oral: Moist Mucosa Neck: Supple, No JVD Lungs: Diminished, Normal air movement, No rhonchi, No wheeze, No rales Cardiovascular: Irregular rate and rhythm, Normal S1, Normal S2, No murmurs Abdomen: Soft, Non Tender, Non-Distended, No Hepato-splenomegaly Extremities: No edema, Capillary Refill Less than 3 Seconds Skin: No rashes, No breakdown Musculoskeletal: No Tenderness to Palpation of Joints or Extremities Neurological: No focal neurological deficits, moves all extremities, sensation intact Psych/Mental Status: Normal Affect, Appropriate Assessment & Plan Assessment/Plan (1) Atrial flutter with rapid ventricular response: PLAN: Plan 1. Paroxysmal A-fib with RVR/essential HTN/HLD/chronic systolic CHF ? Continue on Eliquis ? Cardiology has been consulted no need to repeat echo as this was done recently ? Cardizem drip has been discontinued, initially she was transition to p.o. Cardizem of 240 mg daily however cardiology altered this to 120 mg p.o. twice daily and she has also been started on digoxin however since she remained in rapid A-fib, I discussed with cardiology about transitioning to amiodarone whichthey agree therefore we will trial her on 200 mg p.o. twice daily with the firstdose nowand discontinue digoxin. ? Echo 35% EF and global hypokinesis of the left ventricle, and because of the reduced EF she can no longer take flecainide 2. Hypothyroidism ? Stable ? Continue with Synthroid 3. Anxiety/depression ? Stable ? Continue with her home medications 4. Xulvawn-Nmcjo-Zorxw with muscular dystrophy ? Continue with PT and OT evaluation DVT: Eliquis Charges/Coding Visit Charges Inpatient E&M: 73694 Subs Hosp L2 06/26/25 1638 Cosigner Signature (if applicable): CC: ~ Signed [facility]08-28-2025 Progress note Author Juan J Gerardo [facility] Note Date/Time June 25, 2025 4: 05pm [facility] Medical Records Department [address] [place] [address] Progress Note - Hospitalist 06/25/25 1600 MR#: [id number] Acct: [id number] Name: DONNA CEJA Rep #:[id number] 5 : 1950 74 From: Juan J saab MD PCP: Dr. Olivier Olmstead MD Status:ADM I N Location: [place] [address] Subjective Subjective Doing well, no issues overnight heart rhythm is still in A-fib/flutter Objective Data Objective Data Vital Signs: Vital Signs Temp Pulse Resp BP Pulse Ox O2 Del Method O2 Flow Rate 98 F 115 H 14 127/66 H 97 Room Air 2 06/25/25 13:06 06/25/25 13:06 06/25/25 13:06 06/25/25 13:06 06/25/25 13:06 06/25/25 14:57 06/24/25 08:18 Oxygen Flow Rate (L/min) 2 Oxygen Delivery Method Room Air Weight: 162 lb 11.218 oz Body Mass Index (BMI) 28.8 Intake & Output: Intake and Output for Last 24 Hours 06/24/25 06/25/25 06/26/25 03:59 03:59 03:59 Intake Total 95.83 / 110.83 2350.92 / 2365.92 756.16 / 756.16 Output Total 450 / 450 350 / 350 Balance -354.17 / -339.17 1999. / 2014. 756.16 / 756.16 Lab / Micro Data 06/25/25 04:52 06/25/25 04:52 Labs: Laboratory Results - last 24 hr 06/25/25 04:52: WBC 5.4, RBC 3.65 L, Hgb 12.3, Hct 35.7 L, MCV 97.8, MCH 33.7 H,MCHC 34.5, RDW Std Deviation 46.7 H, RDW Coeff of Viktoria 13.0, Plt Count 217, MPV 10.6, Immature Gran % (Auto) 0.400, Neut % (Auto) 66.1, Lymph % (Auto) 20.8, [place]. Joseph % (Auto) 10.3 H, Eos % (Auto) 2.2, Baso % (Auto) 0.2, Absolute Neuts (auto) 3.6, Absolute Lymphs (auto) 1.13, Nucleated RBC % 0, Sodium 139, Potassium 4.1, Chloride 108, Carbon Dioxide 23.1, Anion Gap 8, BUN 9, Creatinine 0.54 L, Estim Creat Clear Calc 57.57, Est GFR (MDRD) Non-Af 95, BUN/Creatinine Ratio 17.4, Glucose 110 H, Calcium 8.7, Phosphorus 2.9 Physical Exam Narrative General: Alert, Oriented x3, Cooperative, No apparent distress HEENT: Atraumatic, PERRLA, EOMI, Normocephalic Oral: Moist Mucosa Neck: Supple, No JVD Lungs: Diminished, Normal air movement, No rhonchi, No wheeze, No rales Cardiovascular: Irregular rate and rhythm, Normal S1, Normal S2, No murmurs Abdomen: Soft, Non Tender, Non-Distended, No Hepato-splenomegaly Extremities: No edema, Capillary Refill Less than 3 Seconds Skin: No rashes, No breakdown Musculoskeletal: No Tenderness to Palpation of Joints or Extremities Neurological: No focal neurological deficits, moves all extremities, sensation intact Psych/Mental Status: Normal Affect, Appropriate Assessment & Plan Assessment/Plan (1) Atrial flutter with rapid ventricular response: PLAN: Plan 1. Paroxysmal A-fib/essential HTN/HLD/chronic systolic CHF ? Continue on Eliquis ? Cardiology has been consulted no need to repeat echo as this was done recently ? Will discontinue the Cardizem drip and continue with p.o. Cardizem and digoxinas she refuses to take metoprolol because of GI side effects ? Echo 35% EF and global hypokinesis of the left ventricle, and because of the reduced EF she can no longer take flecainide 2. Hypothyroidism ? Stable ? Continue with Synthroid 3. Anxiety/depression ? Stable ? Continue with her home medications 4. Nzdmzey-Uubzu-Wrjfs with muscular dystrophy ? Continue with PT and OT evaluation DVT: Eliquis Charges/Coding Visit Charges Inpatient E&M: 50585 Subs Hosp L2 06/25/25 1605 <Electronically signed by Juan J Gerardo MD> Cosigner Signature (if applicable): CC: ~ Signed [facility] Work Phone: [phone] 704-669108-28-2025 Progress note [facility] Medical Records Department [address] [place] [address] Progress Note - Hospitalist 06/25/25 1600 MR#: [id number] Acct: [id number] Name: DONNA CEJA Rep #:[id number] : 1950 74 From: Juan J saab MD PCP: Dr. Olivier Olmstead MD Status:ADM I N Location: [address] 1 Subjective Subjective Doing well, no issues overnight heart rhythm is still in A-fib/flutter Objective Data Objective Data Vital Signs: Vital Signs Temp Pulse Resp BP Pulse Ox O2 Del Method O2 Flow Rate 98 F 115 H 14 127/66 H 97 Room Air 2 06/25/25 13:06 06/25/25 13:06 06/25/25 13:06 06/25/25 13:06 06/25/25 13:06 06/25/25 14:57 06/24/25 08:18 Oxygen Flow Rate (L/min) 2 Oxygen Delivery Method Room Air Weight: 162 lb 11.218 oz Body Mass Index (BMI) 28.8 Intake & Output: Intake and Output for Last 24 Hours 06/24/25 06/25/25 06/26/25 03:59 03:59 03:59 Intake Total 95.83 / 110.83 2350.92 / 2365.92 756.16 / 756.16 Output Total 450 / 450 350 / 350 Balance -354.17 / -339.17 756.16 / 756.16 Lab / Micro Data 06/25/25 04:52 06/25/25 04:52 Labs: Laboratory Results - last 24 hr 06/25/25 04:52: WBC 5.4, RBC 3.65 L, Hgb 12.3, Hct 35.7 L, MCV 97.8, MCH 33.7 H,MCHC 34.5, RDW Std Deviation 46.7 H, RDW Coeff of Viktoria 13.0, Plt Count 217, MPV 10.6, Immature Gran % (Auto) 0.400, Neut% (Auto) 66.1, Lymph % (Auto) 20.8, [facility]. Joseph % (Auto) 10.3 H, Eos % (Auto) 2.2, Baso % (Auto) 0.2, Absolute Neuts (auto) 3.6, Absolute Lymphs (auto) 1.13, Nucleated RBC % 0, Sodium 139, Potassium 4.1, Chl oride 108, Carbon Dioxide 23.1, Anion Gap 8, BUN 9, Creatinine 0.54 L, Estim Creat Clear Calc 57.57, Est GFR (MDRD) Non-Af 95, BUN/Creatinine Ratio 17.4, Glucose 110 H, Calcium 8.7, Phosphorus 2.9 Physical Exam Narrative General: Alert, Oriented x3, Cooperative, No apparent distress HEENT: Atraumatic, PERRLA, EOMI, Normocephalic Oral: Moist Mucosa Neck: Supple, No JVD Lungs: Diminished, Normal air movement, No rhonchi, No wheeze, No rales Cardiovascular: Irregular rate and rhythm, Normal S1, Normal S2, No murmurs Abdomen: Soft, Non Tender, Non-Distended, No Hepato-splenomegaly Extremities: No edema, Capillary Refill Less than 3 Seconds Skin: No rashes, No breakdown Musculoskeletal: No Tenderness to Palpation of Joints or Extremities Neurological: No focal neurological deficits, moves all extremities, sensation intact Psych/Mental Status: Normal Affect, Appropriate Assessment & Plan Assessment/Plan (1) Atrial flutter with rapid ventricular response: PLAN: Plan 1. Paroxysmal A-fib/essential HTN/HLD/chronic systolic CHF ? Continue on Eliquis ? Cardiology has been consulted no need to repeat echo as this was done recently ? Will discontinue the Cardizem drip and continue with p.o. Cardizem and digoxinas she refuses to take metoprolol because of GI side effects ? Echo 35% EF and global hypokinesis of the left ventricle, and because of the reduced EF she can no longer take flecainide 2. Hypothyroidism ? Stable ? Continue with Synthroid 3. Anxiety/depression ? Stable ? Continue with her home medications 4. Zfsoiwf-Ubjlf-Ungkd with muscular dystrophy ? Continue with PT and OT evaluation DVT: Eliquis Charges/Coding Visit Charges Inpatient E&M: 74078 [facility] Hosp L2 06/25/255 Cosigner Signature (if applicable): CC: ~ Signed [facility]08-27-2025 Consult note Author James Denis [facility] Note Date/Time June 24, 2025 4: 13pm [facility] Medical Records Department [address] [place] [address] Consultation - Cardiology 06/24/258 MR#: [id number] Acct: [id number] Name: DONNA CEJA Rep #:[id number] 2 : 1950 74 From: James Denis MD PCP: Dr. Olivier Chi Ishan, MD Status:ADM I N [id number] Assessment & Plan Assessment/Plan (1) CMT (Husxgas-Flmya-Naiul disease): (2) Muscular dystrophy: (3) Atrial flutter with rapid ventricular response: (4) DDD (degenerative disc disease), lumbar: (5) Hypothyroidism: PLAN: Cardiac care plan; 74-year-old patient seen and evaluated at bedside Patient with known history of CMT/charcoaled Shima tooth syndrome Has a chronic systolic heart failure with a ejection fraction in previous echocardiogram 35% with global hypokinesia of the left ventricle. Patient has a history of atrial for flutter and has been on medication for rate control with diltiazem. As well she has been on OAC with apixaban 5 mg twice daily. She did complain that she has some bruises. She has been previously on flecainide and diltiazem. Patient could not tolerate beta-nrimal and flecainide is obviously not a good choice in her case Due to reduced LV function with EF around 35% Therefore we will continue on anticoagulation with Eliquis. In addition to rate control using digoxin and diltiazem. If she remained stableclinically from cardiac standpoint she can be discharged to follow-up with her primary network operations manager for continuation of cardiac care. Cardiac care plan explained in detail to the patient family at bedside as well as to the nursing staff. James Denis MD,[facility] nuclear worker technician. HPI Consult Data Date of Consult: 06/24/25 HPI Narrative Reason for Consultation: Charcoaled Shima tooth syndrome/atrial flutter with RVR/reduced EF to 35% HPI Narrative: DONNA CEJA, is a 74 F who [facility] Medical History Anxiety Osteoporosis Kidney stones Former smoker Atrial fibrillation Muscular dystrophy Paroxysmal atrial tachycardia Non-rheumatic mitral regurgitation Nonrheumatic mitral (valve) prolapse Paroxysmal atrial fibrillation History of kidney stones Left bundle branch block Khwfkrk-Rtiiq-Ikhlo disease Hypotension Depression Home Medications ?Medication ?Instructions ?Recorded ?Last Taken ?Type levothyroxine 125 mcg tablet 125 mcg PO QODAY 11/28/23 06/22/25 History levothyroxine 112 mcg tablet 112 mcg PO QODAY 04/20/25 06/23/25 History diltiazem HCl 120 mg 120 mg PO QDAY #90 caps 05/3006/22/25 Rx capsule,extended release 24 hr (Cartia XT) apixaban 5 mg tablet (Eliquis) 5 mg PO BID 06/23/25 History citalopram 10 mg tablet 10 mg PO DAILY 06/23/2505/30 History cyclobenzaprine 10 mg tablet 10 mg PO DAILY PRN pain 0 06/23/25 Unknown History metoprolol tartrate 50 mg tablet 50 mg PO Q12H 5 06/22/25 History Allergy/AdvReac Type Severity Reaction Status Date / Time prednisone Allergy Intermediate Rash Verified 06/23/25 21:07 ciprofloxacin AdvReac Intermediate Nausea/Vom/ Verified 06/23/25 21:07 Diarrhea adhesive AdvReac Rash Verified 06/23/25 21:07 Family History Mother Hypertension Breast cancer Brother Colon cancer Sister Hypertension Daughter CAD (coronary artery disease) Father Colon cancer Surgical History Hx of thyroidectomy History of appendectomy History of lithotripsy (~10/2017) Hx of cholecystectomy H/O: section H/O: hysterectomy Hx of knee surgery Hx of foot surgery History of tonsillectomy Social History Smoking Status: Former smoker how long ago did patient quit smokin years ago alcohol intake: current alcohol intake frequency: a few times a month caffeine: Yes Type: coffee Number of servings: 2 Physical Exam Cardio Cardio Narrative: Seen and evaluated at bedside along with the nursing staff Comfortable in bed no symptoms reported. 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 Objective Data Vital Signs: Vital Signs Temp Pulse Resp BP Pulse Ox O2 Del Method O2 Flow Rate 98.7 F 123 H 26 H 132/69 H 94 Room Air 2 06/24/25 12:00 06/24/25 14:00 06/24/25 14:00 06/24/25 14:00 06/24/25 14:00 06/24/25 14:00 06/24/25 08:18 Oxygen Flow Rate (L/min) 2 Oxygen Delivery Method Room Air Weight: 164 lb 7.437 oz Body Mass Index (BMI) 29.1 Intake & Output: Intake and Output for Last 24 Hours 06/22/25 06/23/25 06/24/25 23:59 23:59 23:59 Intake Total 47.08 / 47.08 1591.67 / 1591.67 Output Total 800 / 800 Balance 47.08 / -402.92 791.67 / 791.67 Lab / Micro Data 06/24/25 06:40 06/24/25 06:40 Labs: Laboratory Results - last 24 hr 06/23/25 14:06: PT 15.5 H, INR 1.2, APTT 27.6, Magnesium 2.0, NT pro BNP II 685 06/23/25 15:50: Troponin T Hi Sens 2 Hr 13 06/23/25 17:50: Troponin T Hi Sens 4Hr Cancelled 06/24/25 06:40: WBC 7.3, RBC 4.04 L, Hgb 13.3, Hct 39.2, MCV 97.0, MCH 32.9 H, MCHC 33.9, RDW Std Deviation 46.2 H, RDW Coeff of Viktoria 12.9, Plt Count 205, MPV 10.5, Immature Gran % (Auto) 0.400, Neut % (Auto) 78.0 H, Lymph % (Auto) 11.2 L,[place] Joseph % (Auto) 8.7, Eos % (Auto) 1.4, Baso % (Auto) 0.3, Absolute Neuts (auto) 5.7, Absolute Lymphs (auto) 0.82 L, Nucleated RBC % 0, Sodium 138, Potassium 3.9, Chloride 103, Carbon Dioxide 23.8, Anion Gap 11, BUN 10, Creatinine 0.58 L,Estim Creat Clear Calc 57.88, Est GFR (MDRD) Non-Af 94, BUN/Creatinine Ratio 16.6, Glucose 104 H, Calcium 9.0, Phosphorus 2.2 L, Total Bilirubin 1.21, AST 23, ALT 18, Alkaline Phosphatase 96, Total Protein 6.2, Albumin 3.5, Globulin 2.7, Albumin/Globulin Ratio 1.3, TSH 0.422 Cardiology Labs/Tests 06/23/25 14:06: PT 15.5 H, INR 1.2, APTT 27.6, Magnesium 2.0 06/24/25 06:40: WBC 7.3, RBC 4.04 L, Hgb 13.3, Hct 39.2, MCV 97.0, MCH 32.9 H, MCHC 33.9, Plt Count 205, MPV 10.5, Immature Gran % (Auto) 0.400, Neut % (Auto) 78.0 H, Lymph % (Auto) 11.2 L, [facility] Joseph % (Auto) 8.7, Eos % (Auto) 1.4, Baso % (Auto) 0.3, Absolute Neuts (auto) 5.7, Nucleated RBC % 0, Sodium 138, Potassium 3.9, Chloride 103, Carbon Dioxide 23.8, Anion Gap 11, BUN 10, Creatinine 0.58 L,Est GFR (MDRD) Non-Af 94, BUN/Creatinine Ratio 16.6, Glucose 104 H, Calcium 9.0,Phosphorus 2.2 L, Total Bilirubin 1.21 Rhythm: EKG: ECHO: Stress Test: Cardiac Cath: PCI: CT Surgery: Holter monitor: EPS: PPM: CXR: Chest CT Scan: Radiography Diagnostic Testing: Radiology Impression Chest CTA 06/23/25 15:35 IMPRESSION: 1. No pulmonary arterial emboli identified. 2. No thoracic aortic aneurysm or dissection. 3. Cardiomegaly with predominantly left atrial enlargement. 4. No airspace consolidation/edema, or pleural effusions. Reading Location: [id number] Risk Score for UA/STEMI Assesmment (YES = 1) Risk Stratification Applicable: No 06/24/25 1613 <Electronically signed by James Denis MD> Cosigner Signature (if applicable): CC: Dr. Olivier Olmstead MD~ Signed [facility] Work Phone: [phone] 372-240608-27-2025 Consult note [facility] Medical Records Department [address] [place] [address] Consultation - Cardiology 06/24/25 1608 MR#: [id number] Acct: [id number] Name: DONNA CEJA Rep #:[id number] 2 : 1950 74 From: James Denis MD PCP: Dr. Olivier Olmstead MD Status:ADM I N Location: [place] [address] Assessment & Plan Assessment/Plan (1) CMT (Vpqdblb-Zwgjs-Zjtvo disease): (2) Muscular dystrophy: (3) Atrial flutter with rapid ventricular response: (4) DDD (degenerative disc disease), lumbar: (5) Hypothyroidism: PLAN: Cardiac care plan; 74-year-old patient seen and evaluated at bedside Patient with known history of CMT/charcoaled Shima tooth syndrome Has a chronic systolic heart failure with a ejection fraction in previous echocardiogram 35% with global hypokinesia of the left ventricle. Patient has a history of atrial for flutter and has been on medication for rate control with diltiazem. As well she has been on OAC with apixaban 5 mg twice daily. She did complain that she has some bruises. She has been previously on flecainide and diltiazem. Patient could not tolerate beta-nirmal and flecainide is obviously not a good choice in her case Due to reduced LV function with EF around 35% Therefore we will continue on anticoagulation with Eliquis. In addition to rate control using digoxin and diltiazem. If she remained stableclinically from cardiac standpoint she can be discharged to follow-up with her primary network operations manager for continuation of cardiac care. Cardiac care plan explained in detail to the patient family at bedside as well as to the nursing staff. James Denis MD,[facility] nuclear worker technician. HPI Consult Data Date of Consult: 06/24/25 HPI Narrative Reason for Consultation: Charcoaled Shima tooth syndrome/atrial flutter with RVR/reduced EF to 35% HPI Narrative: DONNA CEJA, is a 74 F who [facility] Medical History Anxiety Osteoporosis Kidney stones Former smoker Atrial fibrillation Muscular dystrophy Paroxysmal atrial tachycardia Non-rheumatic mitral regurgitation Nonrheumatic mitral (valve) prolapse Paroxysmal atrial fibrillation History of kidney stones Left bundle branch block Qvxtdfd-Hekhq-Wkgzg disease Hypotension Depression Home Medications ?Medication ?Instructions ?Recorded ?Last Taken ?Type levothyroxine 125 mcg tablet 125 mcg PO QODAY 01/31/24 08/25/25 History levothyroxine 112 mcg tablet 112 mcg PO QODAY 04/20/25 06/23/25 History diltiazem HCl 120 mg 120 mg PO QDAY #90 caps 05/3006/22/25 Rx capsule,extended release 24 hr (Cartia XT) apixaban 5 mg tablet (Eliquis) 5 mg PO BID 06/23/25 History citalopram 10 mg tablet 10 mg PO DAILY 06/23/2505/30 History cyclobenzaprine 10 mg tablet 10 mg PO DAILY PRN pain 0 06/23/25 Unknown History metoprolol tartrate 50 mg tablet 50 mg PO Q12H 06/22/25 History Allergy/AdvReac Type Severity Reaction Status Date / Time prednisone Allergy Intermediate Rash Verified 06/23/25 21:07 ciprofloxacin AdvReac Intermediate Nausea/Vom/ Verified 06/23/25 21:07 Diarrhea adhesive AdvReac Rash Verified 06/23/25 21:07 Family History Mother Hypertension Breast cancer Brother Colon cancer Sister Hypertension Daughter CAD (coronary artery disease) Father Colon cancer Surgical History Hx of thyroidectomy History of appendectomy History of lithotripsy (~10/2017) Hx of cholecystectomy H/O: section H/O: hysterectomy Hx of knee surgery Hx of foot surgery History of tonsillectomy Social History Smoking Status: Former smoker how long ago did patient quit smokin years ago alcohol intake: current alcohol intake frequency: a few times a month caffeine: Yes Type: coffee Number of servings: 2 Physical Exam Cardio Cardio Narrative: Seen and evaluated at bedside along with the nursing staff Comfortable in bed no symptoms reported. 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 Objective Data Vital Signs: Vital Signs Temp Pulse Resp BP Pulse Ox O2 Del Method O2 Flow Rate 98.7 F 123 H 26 H 132/69 H 94 Room Air 2 06/24/25 12:00 06/24/25 14:00 06/24/25 14:00 06/24/25 14:00 06/24/25 14:00 06/24/25 14:00 06/24/25 08:18 Oxygen Flow Rate (L/min) 2 Oxygen Delivery Method Room Air Weight: 164 lb 7.437 oz Body Mass Index (BMI) 29.1 Intake & Output: Intake and Output for Last 24 Hours 06/22/25 06/23/25 06/24/25 23:59 23:59 23:59 Intake Total 47.08 / 47.08 1591.67 / 1591.67 Output Total 800 / 800 Balance 47.08 / -402.92 791.67 / 791.67 Lab / Micro Data 06/24/25 06:40 06/24/25 06:40 Labs: Laboratory Results - last 24 hr 06/23/25 14:06: PT 15.5 H, INR 1.2, APTT 27.6, Magnesium 2.0, NT pro BNP II 685 06/23/25 15:50: Troponin T Hi Sens 2 Hr 13 06/23/25 17:50: Troponin T Hi Sens 4Hr Cancelled 06/24/25 06:40: WBC 7.3, RBC 4.04 L, Hgb 13.3, Hct 39.2, MCV 97.0, MCH 32.9 H, MCHC 33.9, RDW Std Deviation 46.2 H, RDW Coeff of Viktoria 12.9, Plt Count 205, MPV 10.5, Immature Gran % (Auto) 0.400, Neut % (Auto) 78.0 H, Lymph % (Auto) 11.2 L,[facility] Joseph % (Auto) 8.7, Eos % (Auto) 1.4, Baso % (Auto) 0.3, Absolute Neuts (auto) 5.7, Absolute Lymphs (auto) 0.82 L, Nucleated RBC % 0, Sodium 138, Potassium 3.9, Chloride 103, Carbon Dioxide 23.8, Anion Gap 11, BUN 10, Creatinine 0.58 L,Estim Creat Clear Calc 57.88, Est GFR (MDRD) Non-Af 94, BUN/Creatinine Ratio 16.6, Glucose 104 H, Calcium 9.0, Phosphorus 2.2 L, Total Bilirubin 1.21, AST 23, ALT 18, Alkaline Phosphatase 96, Total Protein 6.2, Albumin 3.5, Globulin 2.7, Albumin/Globulin Ratio 1.3, TSH 0.422 Cardiology Labs/Tests 06/23/25 14:06: PT 15.5 H, INR 1.2, APTT 27.6, Magnesium 2.0 06/24/25 06:40: WBC 7.3, RBC 4.04 L, Hgb 13.3, Hct 39.2, MCV 97.0, MCH 32.9 H, MCHC 33.9, Plt Bteef745, MPV 10.5, Immature Gran % (Auto) 0.400, Neut % (Auto) 78.0 H, Lymph % (Auto) 11.2 L, [facility] % (Auto) 8.7, Eos % (Auto) 1.4, Baso % (Auto) 0.3, Absolute Neuts (auto) 5.7, Nucleated RBC % 0, Sodium 138, Potassium 3.9, Chloride 103, Carbon Dioxide 23.8, Anion Gap 11, BUN 10, Creatinine 0.58 L,Est GFR (MDRD) Non-Af 94, BUN/Creatinine Ratio 16.6, Glucose 104 H, Calcium 9.0,Phosphorus 2.2 L, Total Bilirubin 1.21 Rhythm: EKG: ECHO: Stress Test: Cardiac Cath: PCI: CT Surgery: Holter monitor: EPS: PPM: CXR: Chest CT Scan: Radiography Diagnostic Testing: Radiology Impression Chest CTA 06/23/25 15:35 IMPRESSION: 1. No pulmonary arterial emboli identified. 2. No thoracic aortic aneurysm or dissection. 3. Cardiomegaly with predominantly left atrial enlargement. 4. No airspace consolidation/edema, or pleural effusions. Reading Location: [id number] Risk Score for UA/STEMI Assesmment (YES = 1) Risk Stratification Applicable: No 06/24/25 1613 Cosigner Signature (if applicable): CC: Dr. Olivier Olmstead MD~ Signed [facility]08-27-2025 Progress note Author Juan J Gerardo [facility] Note Date/Time June 24, 2025 11 :58am [facility] Medical Records Department [address] [place] [address] Progress Note - Hospitalist 06/24/25 1140 MR#: [id number] Acct: [id number] Name: DONNA CEJA Rep #:[id number] : 1950 74 From: Juan J saab MD PCP: Dr. Olivier Olmstead MD Status:ADM I NO Location: [place] [address] Subjective Subjective Doing well, heart rate still elevated however no significant shortness of breathor chest pain. She states that her flecainide was discontinued on her previous emergency room visit by the cardiology nurse who took her off metoprolol and flecainide and transitioned her to Cardizem Objective Data Objective Data Vital Signs: Vital Signs Temp Pulse Resp BP Pulse Ox O2 Del Method O2 Flow Rate 98.1 F 120 H 22 H 125/66 H 95 Room Air 2 06/23/25 20:45 06/24/25 09:12 06/24/25 09:00 06/24/25 09:00 06/24/25 09:12 06/24/25 09:12 06/24/25 08:18 Oxygen Flow Rate (L/min) 2 Oxygen Delivery Method Room Air Weight: 164 lb 7.437 oz Body Mass Index (BMI) 29.1 Intake & Output: Intake and Output for Last 24 Hours 06/23/25 06/24/25 06/25/25 03:59 03:59 03:59 Intake Total 95.83 / 110.83 93.67 / 93.67 Output Total 450 / 450 350 / 350 Balance -354.17 / -339.17 -256.33 / -256.33 Lab / Micro Data 06/24/25 06:40 06/24/25 06:40 Labs: Laboratory Results - last 24 hr 06/23/25 14:06: WBC 6.6, RBC 4.32, Hgb 14.3, Hct 42.4, MCV 98.1, MCH 33.1 H, MCHC 33.7, RDW Std Deviation 46.6 H, RDW Coeff of Viktoria 13.1, Plt Count 225, MPV 10.6, Immature Gran % (Auto) 0.300, Neut % (Auto) 69.2, Lymph % (Auto) 19.8, [facility]. Joseph % (Auto) 7.9, Eos % (Auto) 2.3, Baso % (Auto) 0.5, Absolute Neuts (auto) 4.5, Absolute Lymphs (auto) 1.30, Nucleated RBC % 0, PT 15.5 H, INR 1.2, APTT 27.6, Sodium 138, Potassium 4.0, Chloride 104, Carbon Dioxide 20.3 L, Anion Gap 14, BUN 17, Creatinine 0.67 L, Est GFR (MDRD) Non-Af 91, BUN/Creatinine Ratio 24.7 H, Glucose 103 H, Calcium 9.4, Magnesium 2.0, Troponin T High Sens 12 D, NT pro BNP II 685 06/23/25 15:50: Troponin T Hi Sens 2 Hr 13 06/23/25 17:50: Troponin T Hi Sens 4Hr Cancelled 06/24/25 06:40: WBC 7.3, RBC 4.04 L, Hgb 13.3, Hct 39.2, MCV 97.0, MCH 32.9 H, MCHC 33.9, RDW Std Deviation 46.2 H, RDW Coeff of Viktoria 12.9, Plt Count 205, MPV 10.5, Immature Gran % (Auto) 0.400, Neut % (Auto) 78.0 H, Lymph % (Auto) 11.2 L,[facility] Joseph % (Auto) 8.7, Eos % (Auto) 1.4, Baso % (Auto) 0.3, Absolute Neuts (auto) 5.7, Absolute Lymphs (auto) 0.82 L, Nucleated RBC % 0, Sodium 138, Potassium 3.9, Chloride 103, Carbon Dioxide 23.8, Anion Gap 11, BUN 10, Creatinine 0.58 L,Estim Creat Clear Calc 57.88, Est GFR (MDRD) Non-Af 94, BUN/Creatinine Ratio 16.6, Glucose 104 H, Calcium 9.0, Phosphorus 2.2 L, Total Bilirubin 1.21, AST 23, ALT 18, Alkaline Phosphatase 96, Total Protein 6.2, Albumin 3.5, Globulin 2.7, Albumin/Globulin Ratio 1.3, TSH 0.422 Radiography Diagnostic Testing: Radiology Impression Chest X-Ray 06/23/25 13:47 IMPRESSION: Prior cervical surgery is again seen. Bilateral shoulder degenerative changes, thqgf-quurdux-tpib-left, are again noted. Generalized osteopenia is seen. No acute osseous change is seen. Lungs are hypoinflated, but appear clear of acute disease, and unchanged. No acute pneumonic process is noted. No pleural effusion is clearly evident. No pneumothorax is seen. The cardiomediastinal silhouette is stable, with a partially calcified and tortuous aorta noted. Probable mild cardiomegaly, stable in appearance. Reading Location: [facility] Chest CTA 06/23/25 15:35 IMPRESSION: 1. No pulmonary arterial emboli identified. 2. No thoracic aortic aneurysm or dissection. 3. Cardiomegaly with predominantly left atrial enlargement. 4. No airspace consolidation/edema, or pleural effusions. Reading Location: [facility] Physical Exam Narrative General: Alert, Oriented x3, Cooperative, No apparent distress HEENT: Atraumatic, PERRLA, EOMI, Normocephalic Oral: Moist Mucosa Neck: Supple, No JVD Lungs: Diminished, Normal air movement, No rhonchi, No wheeze, No rales Cardiovascular: Irregular rate and rhythm, Normal S1, Normal S2, No murmurs Abdomen: Soft, Non Tender, Non-Distended, No Hepato-splenomegaly Extremities: No edema, Capillary Refill Less than 3 Seconds Skin: No rashes, No breakdown Musculoskeletal: No Tenderness to Palpation of Joints or Extremities Neurological: No focal neurological deficits, moves all extremities, sensation intact Psych/Mental Status: Normal Affect, Appropriate Assessment & Plan Assessment/Plan (1) Atrial flutter with rapid ventricular response: PLAN: Plan 1. Paroxysmal A-fib/essential HTN/HLD/chronic systolic CHF ? Continue on Eliquis ? Cardiology has been consulted no need to repeat echo as this was done recently ? Currently on a Cardizem drip, heart rate is still elevated therefore we will restart her metoprolol. ? Patient was complaining of some fatigue however literature review does not show a connection between metoprolol and Nunrzwq-Txbgv-Pllci disease. Thereforeif the metoprolol is controlling her heart rate then we will continue with the metoprolol ? Unclear as to why the flecainide was discontinued ? Echo 35% EF and global hypokinesis of the left ventricle 2. Hypothyroidism ? Stable ? Continue with Synthroid 3. Anxiety/depression ? Stable ? Continue with her home medications 4. Covccea-Dupwb-Xjqul with muscular dystrophy ? Continue with PT and OT evaluation DVT: Eliquis Charges/Coding Visit Charges Inpatient E&M: 16629 Subs Hosp L2 06/24/25 1158 <Electronically signed by Juan J Gerardo MD> Cosigner Signature (if applicable): CC: ~ Signed [facility] Work Phone: 1(207) 775-554808-27-2025 Progress note [facility] Medical Records Department [address] [place] [address] Progress Note - Hospitalist 06/24/25 1140 MR#: [id number] Acct: [id number] Name: DONNA CEJA Rep #:[id number] : 1950 74 From: Juan J saab MD PCP: Dr. Olivier Olmstead MD Status:ADM I NO Location: [place] [address] Subjective Subjective Doing well, heart rate still elevated however no significant shortness of breathor chest pain. She states that her flecainide was discontinued on her previous emergency room visit by the cardiology nurse who took her off metoprolol and flecainide and transitioned her to Cardizem Objective Data Objective Data Vital Signs: Vital Signs Temp Pulse Resp BP Pulse Ox O2 Del Method O2 Flow Rate 98.1 F 120 H 22 H 125/66 H 95 Room Air 2 06/23/25 20:45 06/24/25 09:12 06/24/25 09:00 06/24/25 09:00 06/24/25 09:12 06/24/25 09:12 06/24/25 08:18 Oxygen Flow Rate (L/min) 2 Oxygen Delivery Method Room Air Weight: 164 lb 7.437 oz Body Mass Index (BMI) 29.1 Intake & Output: Intake and Output for Last 24 Hours 06/23/25 06/24/25 06/25/25 03:59 03:59 03:59 Intake Total 95.83 / 110.83 93.67 / 93.67 Output Total 450 / 450 350 / 350 Balance -354.17 / -339.17 -256.33 / -256.33 Lab / Micro Data 06/24/25 06:40 06/24/25 06:40 Labs: Laboratory Results - last 24 hr 06/23/25 14:06: WBC 6.6, RBC 4.32, Hgb 14.3, Hct 42.4, MCV 98.1, MCH 33.1 H, MCHC 33.7, RDW Std Deviation 46.6 H, RDW Coeff of Viktoria 13.1, Plt Count 225, MPV 10.6, Immature Gran % (Auto) 0.300, Neut % (Auto) 69.2, Lymph % (Auto) 19.8, [place] % (Auto) 7.9, Eos % (Auto) 2.3, Baso % (Auto) 0.5, Absolute Neuts (auto) 4.5, Absolute Lymphs (auto) 1.30, Nucleated RBC % 0, PT 15.5 H, INR 1.2, APTT 27.6, Sodium 138, Potassium 4.0, Chloride 104, Carbon Dioxide 20.3 L, Anion Gap 14, BUN 17, Creatinine 0.67 L,Est GFR (MDRD) Non-Af 91, BUN/Creatinine Ratio 24.7 H, Glucose 103 H, Calcium 9.4, Magnesium 2.0, Troponin T High Sens 12 D, NT pro BNP II 685 06/23/25 15:50: Troponin T Hi Sens 2 Hr 13 06/23/25 17:50: Troponin T Hi Sens 4Hr Cancelled 06/24/25 06:40: WBC 7.3, RBC 4.04 L, Hgb 13.3, Hct 39.2, MCV 97.0, MCH 32.9 H, MCHC 33.9, RDW Std Deviation 46.2 H, RDW Coeff of Viktoria 12.9, Plt Count 205, MPV 10.5, Immature Gran % (Auto) 0.400, Neut % (Auto) 78.0 H, Lymph % (Auto) 11.2 L,[place] Joseph % (Auto) 8.7, Eos % (Auto) 1.4, Baso % (Auto) 0.3, Absolute Neuts (auto) 5.7, Absolute Lymphs (auto) 0.82 L, Nucleated RBC % 0, Sodium 138, Potassium 3.9, Chloride 103, Carbon Dioxide 23.8, Anion Gap 11, BUN 10, Creatinine 0.58 L,Estim Creat Clear Calc 57.88, Est GFR (MDRD) Non-Af 94, BUN/Creatinine Ratio 16.6, Glucose 104 H, Calcium 9.0, Phosphorus 2.2 L, Total Bilirubin 1.21, AST 23, ALT 18, Alkaline Phosphatase 96, Total Protein 6.2, Albumin 3.5, Globulin 2.7, Albumin/Globulin Ratio 1.3, TSH 0.422 Radiography Diagnostic Testing: Radiology Impression Chest X-Ray 06/23/25 13:47 IMPRESSION: Prior cervical surgery is again seen. Bilateral shoulder degenerative changes, jgymo-dwdmnxg-dbmm-left, are again noted. Generalized osteopenia is seen. No acute osseous change is seen. Lungs are hypoinflated, but appear clear of acute disease, and unchanged. No acute pneumonic process is noted. No pleural effusion is clearly evident. No pneumothorax is seen. The cardiomediastinal silhouette is stable, with a partially calcified and tortuous aorta noted. Probable mild cardiomegaly, stable in appearance. Reading Location: [facility]-1 Chest CTA 06/23/25 15:35 IMPRESSION: 1. No pulmonary arterial emboli identified. 2. No thoracic aortic aneurysm or dissection. 3. Cardiomegaly with predominantly left atrial enlargement. 4. No airspace consolidation/edema, or pleural effusions. Reading Location: [facility] Physical Exam Narrative General: Alert, Oriented x3, Cooperative, No apparent distress HEENT: Atraumatic, PERRLA, EOMI, Normocephalic Oral: Moist Mucosa Neck: Supple, No JVD Lungs: Diminished, Normal air movement, No rhonchi, No wheeze, No rales Cardiovascular: Irregular rate and rhythm, Normal S1, Normal S2, No murmurs Abdomen: Soft, Non Tender, Non-Distended, No Hepato-splenomegaly Extremities: No edema, Capillary Refill Less than 3 Seconds Skin: No rashes, No breakdown Musculoskeletal: No Tenderness to Palpation of Joints or Extremities Neurological: No focal neurological deficits, moves all extremities, sensation intact Psych/Mental Status: Normal Affect, Appropriate Assessment & Plan Assessment/Plan (1) Atrial flutter with rapid ventricular response: PLAN: Plan 1. Paroxysmal A-fib/essential HTN/HLD/chronic systolic CHF ? Continue on Eliquis ? Cardiology has been consulted no need to repeat echo as this was done recently ? Currently on a Cardizem drip, heart rate is still elevated therefore we will restart her metoprolol. ? Patient was complaining of some fatigue however literature review does not show a connection between metoprolol and Agpwtva-Bzwrx-Rytxy disease. Thereforeif the metoprolol is controlling her heart rate then we will continue with the metoprolol ? Unclear as to why the flecainide was discontinued ? Echo 35% EF and global hypokinesis of the left ventricle 2. Hypothyroidism ? Stable ? Continue with Synthroid 3. Anxiety/depression ? Stable ? Continue with her home medications 4. Cdzqmme-Cxrur-Vqyjf with muscular dystrophy ? Continue with PT and OT evaluation DVT: Eliquis Charges/Coding Visit Charges Inpatient E&M: 49981 Subs Hosp L2 06/24/25 1158 Cosigner Signature (if applicable): CC: ~ Signed [facility]08-27-2025 History and physical note Author Garo Sales [facility] Note Date/Time June 24, 2025 6: 55am [facility] Medical Records Department [address] [place] [address] H&P Exam - Hospitalist 06/23/251949 MR#: [id number] Acct: [id number] Name: DONNA CEJA Rep #:[id number] : 1950 74 From: Garo Witt DO PCP: Dr. Olivier Olmstead MD Status:ADM I NO Location: [place] [address] HPI - General General Date of Admission: 06/23/25 Date of Service: 06/23/25 Chief Complaint: Chest Pain and AFIB with RVR. HPI Narrative DONNA CEJA, is a 74 F with a past medical history of essential hypertension; on metoprolol BID, hypothyroidism; on levothyroxine, overweight; with BMI of 29.5 this admission, remote history of tobacco abuse (quit ~1983), paroxysmal atrial flutter; on diltiazem plus apixaban BID followed by [facility], history of chronic systolic CHF; with LVEF ~35% with global HK of the Left ventricle (06/11/2025), history of LBBB, history of non-rheumatic mitralvalve prolapse/regurgitation, history of Charcot-Shima Tooth disease, depression; on citalopram, history of renal calculi, muscular dystrophy, osteoporosis and OA; with lumbar spondylosis and back pain who presents to [facility] ER complaining of chest pain and atrial fibrillation;with RVR. Ms. Ceja reports she was recently taken of flecainide and diltiazem in favor of metoprolol with subsequent stomach pain - with patient also noting thatmetoprolol is known to potentially exacerbate Charcot-Shima Tooth disease. She then recontacted [facility] and she was then instructed to take her diltiazem and stop her metoprolol. Unfortunately, in spite of these interventions she developed a subsequent increased heart rate with a corresponding sensation of chest pressure so she decided to come in for further evaluation and management. A family member informed the Er provider that she had recently started taking her apixaban due to concerns about bruising - but she started taking it after her PCP emphasized her elevated risk of CVA. She denies associated fever, chills, vomiting, diarrhea, constipation, dysuria, hematuria, headache or rash. In the ER she was diagnosed with PAF; with RVR up to ~139 bpm with ER physician speaking to network operations manager on-call due to patient's intolerance to metoprolol and ineffectiveness of oral diltiazem with patient recommended to receive IV diltiazem bolus and not using amiodarone due to her CHF and recent restarting of DOAC. She was then admitted to PCU under observation status for ongoing care for a stay that is expected to be less than 2 midnights. [facility] Medical History Anxiety Osteoporosis Kidney stones Former smoker Atrial fibrillation Muscular dystrophy Paroxysmal atrial tachycardia Non-rheumatic mitral regurgitation Nonrheumatic mitral (valve) prolapse Paroxysmal atrial fibrillation History of kidney stones Left bundle branch block Arzfrza-Tzndx-Wvmmz disease Hypotension Depression Home Medications ?Medication ?Instructions ?Recorded ?Last Taken ?Type levothyroxine 125 mcg tablet 125 mcg PO QODAY 11/28/23 06/22/25 History levothyroxine 112 mcg tablet 112 mcg PO QODAY 04/20/25 06/23/25 History diltiazem HCl 120 mg 120 mg PO QDAY #90 caps 05/3006/22/25 Rx capsule,extended release 24 hr (Cartia XT) apixaban 5 mg tablet (Eliquis) 5 mg PO BID 06/23/25 History citalopram 10 mg tablet 10 mg PO DAILY 06/23/2505/30 History cyclobenzaprine 10 mg tablet 10 mg PO DAILY PRN pain 0 06/23/25 Unknown History metoprolol tartrate 50 mg tablet 50 mg PO Q12H 5 06/22/25 History Allergy/AdvReac Type Severity Reaction Status Date / Time prednisone Allergy Intermediate Rash Verified 06/23/25 21:07 ciprofloxacin AdvReac Intermediate Nausea/Vom/ Verified 06/23/25 21:07 Diarrhea adhesive AdvReac Rash Verified 06/23/25 21:07 Family History Mother Hypertension Breast cancer Brother Colon cancer Sister Hypertension Daughter CAD (coronary artery disease) Father Colon cancer Surgical History Hx of thyroidectomy History of appendectomy History of lithotripsy (~10/2017) Hx of cholecystectomy H/O: section H/O: hysterectomy Hx of knee surgery Hx of foot surgery History of tonsillectomy Social History Smoking Status: Former smoker how long ago did patient quit smokin years ago alcohol intake: current alcohol intake frequency: a few times a month caffeine: Yes Type: coffee Number of servings: 2 ROS ROS Narrative Review of Systems: Constitutional: Patient denies fever or chills. Eyes: Patient denies change in vision or discharge from eyes. ENT: Patient denies runny nose, sore throat or ear pain. Resp: Patient denies shortness of breath or cough. CV: Patient admits to chest pressure and palpitations coinciding with a flutter with RVR as per HPI. GI: Patient denies abdominal pain, nausea, vomiting, diarrhea or constipation. : Patient denies dysuria or hematuria. MSK: Patient denies arthralgias or myalgias. Skin: Patient denies rash, abscess, wounds or jaundice. Psych: Patient denies symptoms of uncontrolled depression or anxiety. Neuro: Patient denies headache, paresthesias or focal neurologic deficits. Allergy: Patient denies lip swelling, tongue swelling or urticaria. Hematology: Patient denies easy bleeding or easy bruisability. Endocrinology: Patient denies polyuria, polydipsia, polyphagia or heat/cold intolerance. 14 point ROS otherwise negative except for positives noted above in HPI. Vital Signs Vital Signs Vital Signs: 06/23/25 13:48 06/23/25 14:25 06/23/25 14:26 Temperature 97.8 F Temperature Source Temporal Pulse Rate 78 Respiratory Rate 20 H Respiratory Effort Normal Non-Labored Blood Pressure 159/82 H Blood Pressure Mean 107 Blood Pressure Source Blood Pressure Position Blood Pressure Location Pulse Ox 97 Oxygen Delivery Method Room Air Nasal Cannula 06/23/25 14:47 06/23/25 15:00 06/23/25 16:00 Temperature Temperature Source Pulse Rate 111 H 130 H 78 Respiratory Rate 12 25 H Respiratory Effort Blood Pressure 132/78 H 114/77 124/80 H Blood Pressure Mean 96 89 94 Blood Pressure Source Blood Pressure Position Blood Pressure Location Pulse Ox 97 97 100 Oxygen Delivery Method 06/23/25 16:23 06/23/25 16:28 06/23/25 17:00 Temperature Temperature Source Pulse Rate 112 H 110 H 109 H Respiratory Rate 16 Respiratory Effort Blood Pressure 129/53 H 117/66 133/76 H Blood Pressure Mean 78 83 95 Blood Pressure Source Blood Pressure Position Blood Pressure Location Pulse Ox 99 99 99 Oxygen Delivery Method 06/23/25 18:00 06/23/25 19:00 06/23/25 19:40 Temperature 98.3 F Temperature Source Oral Pulse Rate 111 H 112 H 112 H Respiratory Rate 18 18 18 Respiratory Effort Blood Pressure 146/76 H 122/80 H 140/89 H Blood Pressure Mean 99 94 106 Blood Pressure Source Monitor Blood Pressure Position Semi-Fowlers Blood Pressure Location Left Arm Pulse Ox 100 100 98 Oxygen Delivery Method Room Air Room Air Room Air 06/23/25 19:41 Temperature 98.3 F Temperature Source Pulse Rate 112 H Respiratory Rate 18 Respiratory Effort Blood Pressure 140/89 H Blood Pressure Mean 106 Blood Pressure Source Blood Pressure Position Blood Pressure Location Pulse Ox 97 Oxygen Delivery Method Weight Weight: 166 lb 7.184 oz Body Mass Index (BMI) 29.5 Physical Exam Const alert, oriented x3 and no apparent distress General Appearance: cooperative HEENT normocephalic, head/scalp atraumatic, hearing grossly normal bilaterally and moist oral mucous membranes Eyes PERRL, EOMs intact bilaterally and conjunctivae normal Neck no lymphadenopathy, supple and no JVD Resp normal respiratory effort, no retractions, no use of accessory muscles and clearto auscultation bilaterally Cardio Cardio Narrative: Irregularly irregular @ ~110 bpm. GI normal to inspection, nondistended, normoactive bowel sounds, soft to palpation,non-tender and non-distended Extremity normal to inspection, full ROM and no clubbing, cyanosis or edema Skin Skin Narrative: Patient has no evidence of rash, abscess, wounds or jaundice. Neuro oriented x3, CN's II-XII intact bilaterally, moves all extremities and no focal motor deficits Sensorium / Orientation: awake, alert, oriented to person, oriented to place andoriented to time Speech: speech normal Psych affect normal Results Medical Records Data Attestation: I reviewed the patient's medical records Lab / Micro Data Attestation: I reviewed the patient's lab results. 06/23/25 14:06 06/23/25 14:06 Labs: Laboratory Results - last 24 hr 06/23/25 14:06: WBC 6.6, RBC 4.32, Hgb 14.3, Hct 42.4, MCV 98.1, MCH 33.1 H, MCHC 33.7, RDW Std Deviation 46.6 H, RDW Coeff of Viktoria 13.1, Plt Count 225, MPV 10.6, Immature Gran % (Auto) 0.300, Neut % (Auto) 69.2, Lymph % (Auto) 19.8, [place]. Joseph % (Auto) 7.9, Eos % (Auto) 2.3, Baso % (Auto) 0.5, Absolute Neuts (auto) 4.5, Absolute Lymphs (auto) 1.30, Nucleated RBC % 0, PT 15.5 H, INR 1.2, APTT 27.6, Sodium 138, Potassium 4.0, Chloride 104, Carbon Dioxide 20.3 L, Anion Gap 14, BUN 17, Creatinine 0.67 L, Est GFR (MDRD) Non-Af 91, BUN/Creatinine Ratio 24.7 H, Glucose 103 H, Calcium 9.4, Magnesium 2.0, Troponin T High Sens 12 D, NT pro BNP II 685 06/23/25 15:50: Troponin T Hi Sens 2 Hr 13 06/23/25 17:50: Troponin T Hi Sens 4Hr Cancelled Imaging Radiology Impression Chest X-Ray 06/23/25 13:47 IMPRESSION: Prior cervical surgery is again seen. Bilateral shoulder degenerative changes, lahqr-pldjuhi-yytu-left, are again noted. Generalized osteopenia is seen. No acute osseous change is seen. Lungs are hypoinflated, but appear clear of acute disease, and unchanged. No acute pneumonic process is noted. No pleural effusion is clearly evident. No pneumothorax is seen. The cardiomediastinal silhouette is stable, with a partially calcified and tortuous aorta noted. Probable mild cardiomegaly, stable in appearance. Reading Location: [facility]-1 Chest CTA 06/23/25 15:35 IMPRESSION: 1. No pulmonary arterial emboli identified. 2. No thoracic aortic aneurysm or dissection. 3. Cardiomegaly with predominantly left atrial enlargement. 4. No airspace consolidation/edema, or pleural effusions. Reading Location: [facility] Assessment & Plan Assessment/Plan (1) Atrial flutter with rapid ventricular response: (2) Chest pain: QUALIFIERS: Chest pain type: unspecified Qualified Code(s): R07.9- Chest pain, unspecified (3) Adverse drug reaction: QUALIFIERS: Encounter type: initial encounter Qualified Code(s): T50.905A - Adverse effect of unspecified drugs, medicaments and biological substances, initial encounter (4) Fjackpq-Zyfdu-Kefnh disease: (5) Muscular dystrophy: (6) Overweight (BMI 25.0-29.9): PLAN: Plan 1. PAF; with RVR up to ~139 bpm; on diltiazem plus apixaban BID followed by [facility] - Admit to PCU under observation status. Continue IV diltiazem and avoid beta-blockers to prevent exacerbating GI side effects. Giveacetaminophen prn for pain or fever. Give ondansetron IV prn for nausea and vomiting. Finally, we will consult [facility] to see this patient on-rounds in the AM for further recommendations with help appreciated in advance. 2. Adverse Drug Reaction; to metoprolol with GI upset likely triggering #1 - Avoid beta-blockers and continue IV diltiazem as noted above. 3. History of chronic systolic CHF; with LVEF ~35% with global HK of the Left Ventricle (06/11/2025) complicating #1 & #2 - Stable with no signs of volume overload and NT pro-BNP II of 685 pg/mL present on admission. 4. History of Charcot-Shima Tooth disease with Muscular Dystropy adding to the medical complexity of #1 - #3 - Stable. PT/OT and Case Management to consult and treat on-rounds in the AM for further recommendations with help appreciated in advance. 5. Overweight; with BMI of 29.5 this admission adding to the burden of disease outlined from #1 - #4 - Weight loss will be recommended. 6. Essential hypertension; on metoprolol BID - Hold metoprolol and give hydralazine IV prn for systolic blood pressure > 160 mmHg. 7. Hypothyroidism; on levothyroxine - Resume levothyroxine as before and check TSH. 8. Remote history of tobacco abuse (quit ~1983) - Noted. 9. History of LBBB - Noted. 10. History of non-rheumatic mitral valve prolapse/regurgitation - Noted. 11. Depression; on citalopram - Maintain present therapy. 12. History of renal calculi - Noted with no evidence of recurrence at this time. 13. Osteoporosis - Stable. 14. OA; with lumbar spondylosis and back pain - Give acetaminophen prn as outlined in #1. 15. DVT prophylaxis - Patient already on apixaban for #1 which will be continued. Total time: Approximately (but not less than) 70 minutes. Charges/Coding Visit Charges OBSV E&M: 45819 Observ/hosp same date L2 06/24/25 0655 <Electronically signed by Garo Monzon DO> Cosigner Signature (if applicable): CC: Dr. Garo Monzon DO; Dr. Olivier Olmstead MD~ Signed [facility] Work Phone: 1(507) 439-371908-27-2025 History and physical note [facility] Medical Records Department [address] [place] [address] H&P Exam - Hospitalist 06/23/25 1950 MR#: [id number] Acct: [id number] Name: DONNA CEJA Rep #:[id number] : 1950 74 From: Garo Wtit DO PCP: Dr. Olivier Olmstead MD Status:ADM I NO Location: [place] [address] HPI - General General Date of Admission: 06/23/25 Date of Service: 06/23/25 Chief Complaint: Chest Pain and AFIB with RVR. HPI Narrative DONNA CEJA, is a 74 F with a past medical history of essential hypertension; on metoprolol BID, hypothyroidism; on levothyroxine, overweight; with BMI of 29.5 this admission, remote history of tobacco abuse (quit ~1983), paroxysmal atrial flutter; on diltiazem plus apixaban BID followed by [facility], history of chronic systolic CHF; with LVEF ~35% with global HK of the Left ventricle (06/11/2025), history of LBBB, history of non-rheumatic mitralvalve prolapse/regurgitation, history of Charcot-Shima Tooth disease, depression; on citalopram, history of renal calculi, muscular dystrophy, osteoporosis and OA; with lumbar spondylosis and back pain who presents to [facility] ER complaining of chest pain and atrial fibrillation;with RVR. Ms. Ceja reports she was recently taken of flecainide and diltiazem in favor of metoprolol with subsequent stomach pain - with patient also noting thatmetoprolol is known to potentially exacerbate Charcot-Shima Tooth disease. She then recontacted [facility] and she was then instructedto take her diltiazem and stop her metoprolol. Unfortunately, in spite of these interventions she developed a subsequent increased heart rate with a corresponding sensation of chest pressure so she decided to come in for further evaluation and management. A family member informed the Er provider that she had recently started taking her apixaban due to concerns about bruising - but she started taking it after her PCP emphasized her elevated risk of CVA. She denies associated fever, chills, vomiting, diarrhea, constipation, dysuria, hematuria, headache or rash. In the ER she was diagnosed with PAF; with RVR up to ~139 bpm with ER physician speaking to network operations manager on-call due to patient's intolerance to metoprolol and ineffectiveness of oral diltiazem with patient recommended to receive IV diltiazem bolus and not using amiodarone due to her CHF and recent restarting of DOAC. She was then admitted to PCU under observation status for ongoing care for a stay that is expected to be less than 2 midnights. [facility] Medical History Anxiety Osteoporosis Kidney stones Former smoker Atrial fibrillation Muscular dystrophy Paroxysmal atrial tachycardia Non-rheumatic mitral regurgitation Nonrheumatic mitral (valve) prolapse Paroxysmal atrial fibrillation History of kidney stones Left bundle branch block Wakgojj-Cfrjk-Fkcze disease Hypotension Depression Home Medications ?Medication ?Instructions ?Recorded ?Last Taken ?Type levothyroxine 125 mcg tablet 125 mcg PO QODAY 11/28/23 06/22/25 History levothyroxine 112 mcg tablet 112 mcg PO QODAY 04/20/25 06/23/25 History diltiazem HCl 120 mg 120 mg PO QDAY #90 caps 05/3006/22/25 Rx capsule,extended release 24 hr (Cartia XT) apixaban 5 mg tablet (Eliquis) 5 mg PO BID 06/23/25 History citalopram 10 mg tablet 10 mg PO DAILY 06/23/2505/30 History cyclobenzaprine 10 mg tablet 10 mg PO DAILY PRN pain 0 06/23/25 Unknown History metoprolol tartrate 50 mg tablet 50 mg PO Q12H 06/22/25 History Allergy/AdvReac Type Severity Reaction Status Date / Time prednisone Allergy Intermediate Rash Verified 06/23/25 21:07 ciprofloxacin AdvReac Intermediate Nausea/Vom/ Verified 06/23/25 21:07 Diarrhea adhesive AdvReac Rash Verified 06/23/25 21:07 Family History Mother Hypertension Breast cancer Brother Colon cancer Sister Hypertension Daughter CAD (coronary artery disease) Father Colon cancer Surgical History Hx of thyroidectomy History of appendectomy History of lithotripsy (~10/2017) Hx of cholecystectomy H/O: section H/O: hysterectomy Hx of knee surgery Hx of foot surgery History of tonsillectomy Social History Smoking Status: Former smoker how long ago did patient quit smokin years ago alcohol intake: current alcohol intake frequency: a few times a month caffeine: Yes Type: coffee Number of servings: 2 ROS ROS Narrative Review of Systems: Constitutional: Patient denies fever or chills. Eyes: Patient denies change in vision or discharge from eyes. ENT: Patient denies runny nose, sore throat or ear pain. Resp: Patient denies shortness of breath or cough. CV: Patient admits to chest pressure and palpitations coinciding with a flutter with RVR as per HPI. GI: Patient denies abdominal pain, nausea, vomiting, diarrhea or constipation. : Patient denies dysuria or hematuria. MSK: Patient denies arthralgias or myalgias. Skin: Patient denies rash, abscess, wounds or jaundice. Psych: Patient denies symptoms of uncontrolled depression or anxiety. Neuro: Patient denies headache, paresthesias or focal neurologic deficits. Allergy: Patient denies lip swelling, tongue swelling or urticaria. Hematology: Patient denies easy bleeding or easy bruisability. Endocrinology: Patient denies polyuria, polydipsia, polyphagia or heat/cold intolerance. 14 point ROS otherwise negative except for positives noted above in HPI. Vital Signs Vital Signs Vital Signs: 06/23/25 13:48 06/23/25 14:25 06/23/25 14:26 Temperature 97.8 F Temperature Source Temporal Pulse Rate 78 Respiratory Rate 20 H Respiratory Effort Normal Non-Labored Blood Pressure 159/82 H Blood Pressure Mean 107 Blood Pressure Source Blood Pressure Position Blood Pressure Location Pulse Ox 97 Oxygen Delivery Method Room Air Nasal Cannula 06/23/25 14:47 06/23/25 15:00 06/23/25 16:00 Temperature Temperature Source Pulse Rate 111 H 130 H 78 Respiratory Rate 12 25 H Respiratory Effort Blood Pressure 132/78 H 114/77 124/80 H Blood Pressure Mean 96 89 94 Blood Pressure Source Blood Pressure Position Blood Pressure Location Pulse Ox 97 97 100 Oxygen Delivery Method 06/23/25 16:23 06/23/25 16:28 06/23/25 17:00 Temperature Temperature Source Pulse Rate 112 H 110 H 109 H Respiratory Rate 16 Respiratory Effort Blood Pressure 129/53 H 117/66 133/76 H Blood Pressure Mean 78 83 95 Blood Pressure Source Blood Pressure Position Blood Pressure Location Pulse Ox 99 99 99 Oxygen Delivery Method 06/23/25 18:00 06/23/25 19:00 06/23/25 19:40 Temperature 98.3 F Temperature Source Oral Pulse Rate 111 H 112 H 112 H Respiratory Rate 18 18 18 Respiratory Effort Blood Pressure 146/76 H 122/80 H 140/89 H Blood Pressure Mean 99 94 106 Blood Pressure Source Monitor Blood Pressure Position Semi-Fowlers Blood Pressure Location Left Arm Pulse Ox 100 100 98 Oxygen Delivery Method Room Air Room Air Room Air 06/23/25 19:41 Temperature 98.3 F Temperature Source Pulse Rate 112 H Respiratory Rate 18 Respiratory Effort Blood Pressure 140/89 H Blood Pressure Mean 106 Blood Pressure Source Blood Pressure Position Blood Pressure Location Pulse Ox 97 Oxygen Delivery Method Weight Weight: 166 lb 7.184 oz Body Mass Index (BMI) 29.5 Physical Exam Const alert, oriented x3 and no apparent distress General Appearance: cooperative HEENT normocephalic, head/scalp atraumatic, hearing grossly normal bilaterally and moist oral mucous membranes Eyes PERRL, EOMs intact bilaterally and conjunctivae normal Neck no lymphadenopathy, supple and no JVD Resp normal respiratory effort, no retractions, no use of accessory muscles and clearto auscultation bilaterally Cardio Cardio Narrative: Irregularly irregular @ ~110 bpm. GI normal to inspection, nondistended, normoactive bowel sounds, soft to palpation,non-tender and non-distended Extremity normal to inspection, full ROM and no clubbing, cyanosis or edema Skin Skin Narrative: Patient has no evidence of rash, abscess, wounds or jaundice. Neuro oriented x3, CN's II-XII intact bilaterally, moves all extremities and no focal motor deficits Sensorium / Orientation: awake, alert, oriented to person, oriented to place andoriented to time Speech: speech normal Psych affect normal Results Medical Records Data Attestation: I reviewed the patient's medical records Lab / Micro Data Attestation: I reviewed the patient's lab results. 06/23/25 14:06 06/23/25 14:06 Labs: Laboratory Results - last 24 hr 06/23/25 14:06: WBC 6.6, RBC 4.32, Hgb 14.3, Hct 42.4, MCV 98.1, MCH 33.1 H, MCHC 33.7, RDW Std Deviation 46.6 H, RDW Coeff of Viktoria 13.1, Plt Count 225, MPV 10.6, Immature Gran % (Auto) 0.300, Neut % (Auto) 69.2, Lymph % (Auto) 19.8, [place] % (Auto) 7.9, Eos % (Auto) 2.3, Baso % (Auto) 0.5, Absolute Neuts (auto) 4.5, Absolute Lymphs (auto) 1.30, Nucleated RBC % 0, PT 15.5 H, INR 1.2, APTT 27.6, Sodium 138, Potassium 4.0, Chloride 104, Carbon Dioxide 20.3 L, Anion Gap 14, BUN 17, Creatinine 0.67 L,Est GFR (MDRD) Non-Af 91, BUN/Creatinine Ratio 24.7 H, Glucose 103 H, Calcium 9.4, Magnesium 2.0, Troponin T High Sens 12 D, NT pro BNP II 685 06/23/25 15:50: Troponin T Hi Sens 2 Hr 13 06/23/25 17:50: Troponin T Hi Sens 4Hr Cancelled Imaging Radiology Impression Chest X-Ray 06/23/25 13:47 IMPRESSION: Prior cervical surgery is again seen. Bilateral shoulder degenerative changes, cjhbz-oyrmebx-ktdl-left, are again noted. Generalized osteopenia is seen. No acute osseous change is seen. Lungs are hypoinflated, but appear clear of acute disease, and unchanged. No acute pneumonic process is noted. No pleural effusion is clearly evident. No pneumothorax is seen. The cardiomediastinal silhouette is stable, with a partially calcified and tortuous aorta noted. Probable mild cardiomegaly, stable in appearance. Reading Location: [facility] Chest CTA 06/23/25 15:35 IMPRESSION: 1. No pulmonary arterial emboli identified. 2. No thoracic aortic aneurysm or dissection. 3. Cardiomegaly with predominantly left atrial enlargement. 4. No airspace consolidation/edema, or pleural effusions. Reading Location: [id number] Assessment & Plan Assessment/Plan (1) Atrial flutter with rapid ventricular response: (2) Chest pain: QUALIFIERS: Chest pain type: unspecified Qualified Code(s): R07.9- Chest pain, unspecified (3) Adverse drug reaction: QUALIFIERS: Encounter type: initial encounter Qualified Code(s): T50.905A - Adverse effect of unspecified drugs, medicaments and biological substances, initial encounter (4) Hjhdwoj-Joazp-Xlysj disease: (5) Muscular dystrophy: (6) Overweight (BMI 25.0-29.9): PLAN: Plan 1. PAF; with RVR up to ~139 bpm; on diltiazem plus apixaban BID followed by [facility] - Admit to PCU under observation status. Continue IV diltiazem and avoid beta-blockers to prevent exacerbating GI side effects. Giveacetaminophen prn for pain or fever. Give ondansetron IV prn for nauseaand vomiting. Finally, we will consult [facility] to see this patient on- rounds in the AM for further recommendations with help appreciated in advance. 2. Adverse Drug Reaction; to metoprolol with GI upset likely triggering #1 - Avoid beta-blockers and continue IV diltiazem as noted above. 3. History of chronic systolic CHF; with LVEF ~35% with global HK of the Left Ventricle (06/11/2025)complicating #1 & #2 - Stable with no signs of volume overload and NT pro-BNP II of 685 pg/mL present on admission. 4. History of Charcot-Shima Tooth disease with Muscular Dystropy adding to the medical complexity of #1 - #3 - Stable. PT/OT and Case Management to consult and treat on-rounds in the AM for further recommendations with help appreciated in advance. 5. Overweight; with BMI of 29.5 this admission adding to the burden of disease outlined from #1 - #4 - Weight loss will be recommended. 6. Essential hypertension; on metoprolol BID - Hold metoprolol and give hydralazine IV prn for systolic blood pressure > 160 mmHg. 7. Hypothyroidism; on levothyroxine - Resume levothyroxine as before and check TSH. 8. Remote history of tobacco abuse (quit ~1983) - Noted. 9. History of LBBB - Noted. 10. History of non-rheumatic mitral valve prolapse/regurgitation - Noted. 11. Depression; on citalopram - Maintain present therapy. 12. History of renal calculi - Noted with no evidence of recurrence at this time. 13. Osteoporosis - Stable. 14. OA; with lumbar spondylosis and back pain - Give acetaminophen prn as outlined in #1. 15. DVT prophylaxis - Patient already on apixaban for #1 which will be continued. Total time: Approximately (but not less than) 70 minutes. Charges/Coding Visit Charges OBSV E&M: 48710 Observ/hosp same date L2 06/24/25 0655 Cosigner Signature (if applicable): CC: Dr. Garo Monzon DO; Dr. Olivier Olmstead MD~ Signed [facility]08-26-2025 Discharge summary Author Dewayne Vázquez [facility] Note Date/Time June 23, 2025 7: 56pm [facility] Medical Records Department [facility] [place] [address] Emergency Department Summary 06/23/25 MR#: [id number] Acct: [id number] Name: DONNA CEJA Rep #:[id number] 5 : 1950 74 From: Dewayne Vázquez DO PCP: Dr. Olivier Olmstead MD Status:REG E R Location: ED ADDENDUM by Dr. Dewayne Vázquez DO on 06/23/[address] Adeel henry recommend continuing digoxin on 25 mcg daily and increasing her Cardizem to 180 mg daily 06/23/251955<Electronically signed by Dewayne Vázquez DO> Cosigner Signature (if applicable): cc: Dr. Olivier Olmstead MD ~* Signed HPI History of Present Illness Chief Complaint: Chest Pain Narrative Narrative: Patient is a 74-year-old female with a past medical history of muscular dystrophy, paroxysmal H tachycardia/atrial fibrillation, left bundle branch block, Charcot's Shima tooth disease, hypertension, depression who presented to the emergency department with a chief complaint of chest pressure and concern for atrial fibrillation. Patient states that she recently had seen a nurse practitioner through the [facility] and notes that she was taken off her flecainide and her Cardizem and was placed on metoprolol. She states that she started taking the metoprolol and noted that this started messing with her stomach and notes that this is one of the medications that can mess with her Itkfazf-Uvskd-Dusfp disease. She states that they called back to the cardiologyteam and they advised her to take her Cardizem again and discontinue the metoprolol. She states that she notes that her heart rate has been increasing and with the pressure in her chest she came here for further evaluation management. According to the family member at bedside she notes that she just recently started taking her Eliquis as she had not been taking this previously as she was concerned about bruising that she bruises very easily. Family bedside notes that her family doctor stressed the high risk of stroke for the patient herself therefore she started taking this. [facility] Medical History (Updated 06/23/25 @ 19:[address] Dewayne Vázquez, DO) Anxiety Osteoporosis Kidney stones Former smoker Atrial fibrillation Muscular dystrophy Paroxysmal atrial tachycardia Non-rheumatic mitral regurgitation Nonrheumatic mitral (valve) prolapse Paroxysmal atrial fibrillation History of kidney stones Left bundle branch block Snyrknq-Qnhoa-Wfiov disease Hypotension Depression Home Medications ?Medication ?Instructions ?Recorded ?Last Taken ?Type levothyroxine 125 mcg tablet 125 mcg PO QODAY 11/28/23 06/22/25 History levothyroxine 112 mcg tablet 112 mcg PO QODAY 04/20/25 06/23/25 History diltiazem HCl 120 mg 120 mg PO QDAY #90 caps 05/3006/22/25 Rx capsule,extended release 24 hr (Cartia XT) apixaban 5 mg tablet (Eliquis) 5 mg PO BID 06/23/25 History citalopram 10 mg tablet 10 mg PO DAILY 06/23/2505/30 History cyclobenzaprine 10 mg tablet 10 mg PO DAILY PRN pain 0 06/23/25 Unknown History metoprolol tartrate 50 mg tablet 50 mg PO Q12H 5 06/22/25 History Allergy/AdvReac Type Severity Reaction Status Date / Time prednisone Allergy Intermediate Rash Verified 05/18/25 09:40 adhesive AdvReac Rash Verified 05/18/25 09:40 Family History Mother Hypertension Breast cancer Brother Colon cancer Sister Hypertension Daughter CAD (coronary artery disease) Father Colon cancer Surgical History (Updated 06/23/25 @ 19:35 by Bridget Brian) Hx of thyroidectomy History of appendectomy History of lithotripsy (~10/2017) Hx of cholecystectomy H/O: section H/O: hysterectomy Hx of knee surgery Hx of foot surgery History of tonsillectomy Social History Smoking Status: Former smoker how long ago did patient quit smokin years ago alcohol intake: current alcohol intake frequency: a few times a month caffeine: Yes Type: coffee Number of servings: 2 ROS ROS ED ROS Narrative Constitutional: Denies any fevers, chills, headaches, lightness, dizziness Eyes: Denies change in vision double vision blurry vision Cardiovascular: Complains of chest pressure as noted above and palpitations Respiratory: Denies coughing wheezing shortness of breath Abdomen: Denies abdominal pain nausea vomiting diarrhea : Denies any urinary symptoms Neurological: Denies numbness, weakness, tingling Musculoskeletal: Denies back pain Skin: Denies any rashes or lesions EXAM Physical Exam Narrative Exam Narrative: General: Patient lying in bed rest comfortably not appear to be acute distress Head: Atraumatic, normocephalic Eyes: PERRL bilaterally, EOMI bilateral, no conjunctival injection noted Neck: Soft, supple, trachea midline Cardiovascular: Patient has an irregular irregular rhythm and tachycardic Respiratory: Clear to auscultation bilaterally Abdomen: Soft, nondistended, nontender to palpation Extremities: +5/5 strength noted in the bilateral lower extremities Neurological: Patient following commands knew that she was at [facility] year is 2024 Skin: Warm, dry, tact no rashes or lesions noted Const Vital Signs: 06/23/25 13:48 06/23/25 14:25 06/23/25 14:26 Temperature 97.8 F Temperature Source Temporal Pulse Rate 78 Respiratory Rate 20 H Respiratory Effort Normal Non-Labored Blood Pressure 159/82 H Blood Pressure Mean 107 Blood Pressure Source Blood Pressure Position Blood Pressure Location Pulse Ox 97 Oxygen Delivery Method Room Air Nasal Cannula 06/23/25 14:47 06/23/25 15:00 06/23/25 16:00 Temperature Temperature Source Pulse Rate 111 H 130 H 78 Respiratory Rate 12 25 H Respiratory Effort Blood Pressure 132/78 H 114/77 124/80 H Blood Pressure Mean 96 89 94 Blood Pressure Source Blood Pressure Position Blood Pressure Location Pulse Ox 97 97 100 Oxygen Delivery Method 06/23/25 16:23 06/23/25 16:28 06/23/25 17:00 Temperature Temperature Source Pulse Rate 112 H 110 H 109 H Respiratory Rate 16 Respiratory Effort Blood Pressure 129/53 H 117/66 133/76 H Blood Pressure Mean 78 83 95 Blood Pressure Source Blood Pressure Position Blood Pressure Location Pulse Ox 99 99 99 Oxygen Delivery Method 06/23/25 18:00 06/23/25 19:00 06/23/25 19:40 Temperature 98.3 F Temperature Source Oral Pulse Rate 111 H 112 H 112 H Respiratory Rate 18 18 18 Respiratory Effort Blood Pressure 146/76 H 122/80 H 140/89 H Blood Pressure Mean 99 94 106 Blood Pressure Source Monitor Blood Pressure Position Semi-Fowlers Blood Pressure Location Left Arm Pulse Ox 100 100 98 Oxygen Delivery Method Room Air Room Air Room Air 06/23/25 19:41 Temperature 98.3 F Temperature Source Pulse Rate 112 H Respiratory Rate 18 Respiratory Effort Blood Pressure 140/89 H Blood Pressure Mean 106 Blood Pressure Source Blood Pressure Position Blood Pressure Location Pulse Ox 97 Oxygen Delivery Method MDM MDM MDM Narrative Medical decision making narrative: Patient is a 74-year-old female who presents to the emergency department chief complaint chest pressure and concern for A-fib with elevated heart rate. On thedifferential diagnosis includes but not limited to A-fib with RVR secondary to medication adjustments, pneumonia, pneumothorax, ACS, electrolyte abnormality. Once the workup is obtained reviewed she will be reevaluated. Patient CBC reviewed which showed no leukocytosis white blood count was 6.6, he was 14.3, plate count was 8225. Patient INR normal 1.2, PT of 15.5. Patient sodium is 130, potassium normal at 4, creatinine was 0.67. Patient's magnesium level normal at 2, troponin was 12 with a delta troponin of 13. Patient's EKG showed atrial flutter with variable block with a rate of 139 bpm, proBNP of 65. Patient's chest x-ray reviewed by myself and by radiology and showed prior cervical surgery noted bilateral shoulder degenerative changes noted no acute cardiopulmonary processes she does have a partially calcified and tortuous aortanoted. I did add on a CTA of the chest. CTA of the chest reviewed and showed no pulmonary arterial emboli identified no aneurysm dissection cardiomegaly withpredominantly left atrial enlargement no airspace consolidation edema or pleuraleffusions. Early on in the visit I reached out to on-call network operations manager Dr. Denis and had discussion in regards to medications to control her rate as she had been previously on flecainide Cardizem with recent medication adjustments she had these discontinued and was placed on metoprolol. However she was not toleratingmetoprolol as she was having a lot of abdominal and GI symptoms from this therefore they told her to take her Cardizem again which did not work. I did review her echocardiogram which showed a ejection fraction of 35% this was done on 06/11/2025 which also showed mild to moderate global hypokinesis of the left ventricle. I wanted discussed with him in regards to Cardizem bolus given her heart failure and not using amiodarone as she has not been compliant with her Eliquis. He is agreeable with this he states that we can do a Cardizem bolus aswell as digoxin load. Patient was observed here in the emergency department and she remains in a tachycardic rate with atrial flutter of 110-115 range despite these medications. I reached out again to Dr. Denis and he is recommending a Cardizem drip and admission to the hospital for rate control. Cardizem drip was ordered. Cardizem drip was ordered and will discuss case with hospitalist for admission. Did discuss case with hospitalist Dr. Bolivar who accept the patient. Did notify the patient and daughter at bedside all question concerns answered. Lab Data Labs: Laboratory Results - last 24 hr 06/23/25 06/23/25 06/23/25 14:06 15:50 17:50 WBC 6.6 RBC 4.32 Hgb 14.3 Hct 42.4 MCV 98.1 MCH 33.1 H MCHC 33.7 RDW Std Deviation 46.6 H RDW Coeff of Viktoria 13.1 Plt Count 225 MPV 10.6 Immature Gran % (Auto) 0.300 Neut % (Auto) 69.2 Lymph % (Auto) 19.8 St. Joseph % (Auto) 7.9 Eos % (Auto) 2.3 Baso % (Auto) 0.5 Absolute Neuts (auto) 4.5 Absolute Lymphs (auto) 1.30 Nucleated RBC % 0 PT 15.5 H INR 1.2 APTT 27.6 Sodium 138 Potassium 4.0 Chloride 104 Carbon Dioxide 20.3 L Anion Gap 14 BUN 17 Creatinine 0.67 L Est GFR (MDRD) Non-Af 91 BUN/Creatinine Ratio 24.7 H Glucose 103 H Calcium 9.4 Magnesium 2.0 Troponin T High Sens 12 D Troponin T Hi Sens 2 Hr 13 Troponin T Hi Sens 4Hr Cancelled NT pro BNP II 685 Radiography Diagnostic Testing: Clinical Impression(s) from Imaging Studies Chest X-Ray 06/23/25 13:47 IMPRESSION: Prior cervical surgery is again seen. Bilateral shoulder degenerative changes, alzgg-jmfochy-cfgh-left, are again noted. Generalized osteopenia is seen. No acute osseous change is seen. Lungs are hypoinflated, but appear clear of acute disease, and unchanged. No acute pneumonic process is noted. No pleural effusion is clearly evident. No pneumothorax is seen. The cardiomediastinal silhouette is stable, with a partially calcified and tortuous aorta noted. Probable mild cardiomegaly, stable in appearance. Reading Location: [facility]-1 Chest CTA 06/23/25 15:35 IMPRESSION: 1. No pulmonary arterial emboli identified. 2. No thoracic aortic aneurysm or dissection. 3. Cardiomegaly with predominantly left atrial enlargement. 4. No airspace consolidation/edema, or pleural effusions. Reading Location: [facility] Discharge Plan Triage Chief Complaint: Chest Pain ED Provider: Dewayne Vázquez Dx/Rx/DC Orders Clinical Impression: Atrial flutter with rapid ventricular response, Chest pain, Muscular dystrophy Prescriptions: No Action levothyroxine 125 mcg tablet 125 mcg PO QODAY Patient Comments: alternating with 112mcg Rx Instructions: qod levothyroxine 112 mcg tablet 112 mcg PO QODAY Patient Comments: alternating with 125mcg cyclobenzaprine 10 mg tablet 10 mg PO DAILY PRN (Reason: pain) citalopram 10 mg tablet 10 mg PO DAILY metoprolol tartrate 50 mg tablet 50 mg PO Q12H Eliquis 5 mg tablet 5 mg PO BID diltiazem HCl [Cartia XT] 120 mg capsule,extended release 24hr 120 mg PO QDAY Qty: 90 3RF Primary Care Provider: Olivier Olmstead Chi Referrals: Olivier Olmstead Chi, MD [Primary Care Provider] - Print Language: [place] Disposition Disposition: Acute Care Hospital [facility] What to do if you have Problems For any increased pain, shortness of breath, bleeding, nausea or vomiting, chestpain, or any unexpected problems, contact your Primary Care Provider. Call [facility] ([phone]) or report to the closest Emergency Room. Call 911 if necessary. 06/23/251952 <Electronically signed by Dewayne Vázquez DO> Cosigner Signature (if applicable): CC: Dr. Olivier Olmstead MD ~ Signed [facility] Work Phone: [phone]) 723-607808-26-2025 Discharge summary [facility] Medical Records Department [address] [place] [address] Emergency Department Summary 06/23/25 MR#: [id number] Acct: [id number] Name: DONNA CEJA Rep #:[id number] 5 : 1950 74 From: Dewayne Vázquez DO PCP: Dr. Olivier Olmstead MD Status:REG E R Location: ED ADDENDUM by Dr. Dewayne Vázquez DO on 06/23/[address] Adeel henry recommend continuing digoxin on 25 mcg daily and increasing her Cardizem to 180 mg daily 06/23/251955 Cosigner Signature (if applicable): cc: Dr. Olivier Olmstead MD ~* Signed HPI History of Present Illness Chief Complaint: Chest Pain Narrative Narrative: Patient is a 74-year-old female with a past medical history of muscular dystrophy, paroxysmal H tachycardia/atrial fibrillation, left bundle branch block, Charcot's Shima tooth disease, hypertension,depression who presented to the emergency department with a chief complaint of chest pressure and concern for atrial fibrillation. Patient states that she recently had seen a nurse practitioner through the [facility] and notes that she was taken off her flecainide and her Cardizem and was placed on metoprolol. She states that she started taking the metoprolol and noted that this started messing with her stomach and notes that this is one of the medications that can mess with her Swhbpqw-Zuoxz-Ylkbm disease. She states that they called back to the cardiologyteam and they advised her to take her Cardizem again and discontinue the metoprolol. She states that she notes that her heart rate has been increasing and with the pressure in her chest she came here for further evaluation management. According to the family member at bedside she notes that she just recently started taking her Eliquis as she had not been taking this previously as she was concerned about bruising that she bruises very easily. Family bedside notes that her family doctor stressed the high risk of stroke for the patient herself therefore she started taking this. [facility] Medical History (Updated 06/23/25 @ 19:[address] Dewayne Vázquez, DO) Anxiety Osteoporosis Kidney stones Former smoker Atrial fibrillation Muscular dystrophy Paroxysmal atrial tachycardia Non-rheumatic mitral regurgitation Nonrheumatic mitral (valve) prolapse Paroxysmal atrial fibrillation History of kidney stones Left bundle branch block Wintmeh-Fwsbp-Flwfq disease Hypotension Depression Home Medications ?Medication ?Instructions ?Recorded ?Last Taken ?Type levothyroxine 125 mcg tablet 125 mcg PO QODAY 11/28/23 06/22/25 History levothyroxine 112 mcg tablet 112 mcg PO QODAY 04/20/25 06/23/25 History diltiazem HCl 120 mg 120 mg PO QDAY #90 caps 05/3006/22/25 Rx capsule,extended release 24 hr (Cartia XT) apixaban 5 mg tablet (Eliquis) 5 mg PO BID 06/23/25 History citalopram 10 mg tablet 10 mg PO DAILY 06/23/2505/30 History cyclobenzaprine 10 mg tablet 10 mg PO DAILY PRN pain 0 06/23/25 Unknown History metoprolol tartrate 50 mg tablet 50 mg PO Q12H 06/22/25 History Allergy/AdvReac Type Severity Reaction Status Date / Time prednisone Allergy Intermediate Rash Verified 05/18/25 09:40 adhesive AdvReac Rash Verified 05/18/25 09:40 Family History Mother Hypertension Breast cancer Brother Colon cancer Sister Hypertension Daughter CAD (coronary artery disease) Father Colon cancer Surgical History (Updated 06/23/25 @ 19:35 by Bridget Brian) Hx of thyroidectomy History of appendectomy History of lithotripsy (~10/2017) Hx of cholecystectomy H/O: section H/O: hysterectomy Hx of knee surgery Hx of foot surgery History of tonsillectomy Social History Smoking Status: Former smoker how long ago did patient quit smokin years ago alcohol intake: current alcohol intake frequency: a few times a month caffeine: Yes Type: coffee Number of servings: 2 ROS ROS ED ROS Narrative Constitutional: Denies any fevers, chills, headaches, lightness, dizziness Eyes: Denies change in vision double vision blurry vision Cardiovascular: Complains of chest pressure as noted above and palpitations Respiratory: Denies coughing wheezing shortness of breath Abdomen: Denies abdominal pain nausea vomiting diarrhea : Denies any urinary symptoms Neurological: Denies numbness, weakness, tingling Musculoskeletal: Denies back pain Skin: Denies any rashes or lesions EXAM Physical Exam Narrative Exam Narrative: General: Patient lying in bed rest comfortably not appear to be acute distress Head: Atraumatic, normocephalic Eyes: PERRL bilaterally, EOMI bilateral, no conjunctival injection noted Neck: Soft, supple, trachea midline Cardiovascular: Patient has an irregular irregular rhythm and tachycardic Respiratory: Clear to auscultation bilaterally Abdomen: Soft, nondistended, nontender to palpation Extremities: +5/5 strength noted in the bilateral lower extremities Neurological: Patient following commands knew that she was at [facility] year is 2024 Skin: Warm, dry, tact no rashes or lesions noted Const Vital Signs: 06/23/25 13:48 06/23/25 14:25 06/23/25 14:26 Temperature 97.8 F Temperature Source Temporal Pulse Rate 78 Respiratory Rate 20 H Respiratory Effort Normal Non-Labored Blood Pressure 159/82 H Blood Pressure Mean 107 Blood Pressure Source Blood Pressure Position Blood Pressure Location Pulse Ox 97 Oxygen Delivery Method Room Air Nasal Cannula 06/23/25 14:47 06/23/25 15:00 06/23/25 16:00 Temperature Temperature Source Pulse Rate 111 H 130 H 78 Respiratory Rate 12 25 H Respiratory Effort Blood Pressure 132/78 H 114/77 124/80 H Blood Pressure Mean 96 89 94 Blood Pressure Source Blood Pressure Position Blood Pressure Location Pulse Ox 97 97 100 Oxygen Delivery Method 06/23/25 16:23 06/23/25 16:28 06/23/25 17:00 Temperature Temperature Source Pulse Rate 112 H 110 H 109 H Respiratory Rate 16 Respiratory Effort Blood Pressure 129/53 H 117/66 133/76 H Blood Pressure Mean 78 83 95 Blood Pressure Source Blood Pressure Position Blood Pressure Location Pulse Ox 99 99 99 Oxygen Delivery Method 06/23/25 18:00 06/23/25 19:00 06/23/25 19:40 Temperature 98.3 F Temperature Source Oral Pulse Rate 111 H 112 H 112 H Respiratory Rate 18 18 18 Respiratory Effort Blood Pressure 146/76 H 122/80 H 140/89 H Blood Pressure Mean 99 94 106 Blood Pressure Source Monitor Blood Pressure Position Semi-Fowlers Blood Pressure Location Left Arm Pulse Ox 100 100 98 Oxygen Delivery Method Room Air Room Air Room Air 06/23/25 19:41 Temperature 98.3 F Temperature Source Pulse Rate 112 H Respiratory Rate 18 Respiratory Effort Blood Pressure 140/89 H Blood Pressure Mean 106 Blood Pressure Source Blood Pressure Position Blood Pressure Location Pulse Ox 97 Oxygen Delivery Method MDM MDM MDM Narrative Medical decision making narrative: Patient is a 74-year-old female who presents to the emergency department chief complaint chest pressure and concern for A-fib with elevated heart rate. On thedifferential diagnosis includes but not limited to A-fib with RVR secondary to medication adjustments, pneumonia, pneumothorax, ACS, electrolyte abnormality. Once the workup is obtained reviewed she will be reevaluated. Patient CBC reviewed which showed no leukocytosis white blood count was 6.6, he was 14.3, plate count was 8225. Patient INR normal 1.2, PT of 15.5. Patient sodium is 130, potassium normal at 4, creatinine was 0.67. Patient's magnesium level normal at 2, troponin was 12 with a delta troponin of 13. Patient's EKG showed atrial flutter with variable block with a rate of 139 bpm, proBNP of 65. Patient's chest x-ray reviewed by myself and by radiology and showed prior cervical surgery noted bilateral shoulder degenerative changes noted no acute cardiopulmonary processes she does have a partially calcified and tortuous aortanoted. I did add on a CTA of the chest. CTA of the chest reviewed and show ed no pulmonary arterial emboli identified no aneurysm dissection cardiomegaly withpredominantly left atrial enlargement no airspace consolidation edema or pleuraleffusions. Early on in the visit I reached out to on-call network operations manager Dr. Denis and had discussion in regardsto medications to control her rate as she had been previously on flecainide Cardizem with recent medication adjustments she had these discontinued and was placed on metoprolol. However she was not julienne eratingmetoprolol as she was having a lot of abdominal and GI symptoms from this therefore they told her to take her Cardizem again which did not work. I did review her echocardiogram which showed a ejection fraction of 35% this was done on 06/11/2025 which also showed mild to moderate global hypokinesis of the left ventricle. I wanted discussed with him in regards to Cardizem bolus given her heart failure and not using amiodarone as she has not been compliant with her Eliquis. He is agreeable with this he states that we can do a Cardizem bolus aswell as digoxin load. Patient was observed here in the emergency department and she remains in a tachycardic rate with atrial flutter of 110-115 range despite these medications. I reached out again to Dr. Denis and he is recommending a Cardizem drip and admission to the hospital for rate control. Cardizem drip was ordered. Cardizem drip was ordered and will discuss case with hospitalist for admission. Did discuss case with hospitalist Dr. Bolivar who accept the patient. Did notify the patient and daughter at bedside all question concerns answered. Lab Data Labs: Laboratory Results - last 24 hr 06/23/25 06/23/25 06/23/25 14:06 15:50 17:50 WBC 6.6 RBC 4.32 Hgb 14.3 Hct 42.4 MCV 98.1 MCH 33.1 H MCHC 33.7 RDW Std Deviation 46.6 H RDW Coeff of Viktoria 13.1 Plt Count 225 MPV 10.6 Immature Gran % (Auto) 0.300 Neut % (Auto) 69.2 Lymph % (Auto) 19.8 [place] % (Auto) 7.9 Eos % (Auto) 2.3 Baso % (Auto) 0.5 Absolute Neuts (auto) 4.5 Absolute Lymphs (auto) 1.30 Nucleated RBC % 0 PT 15.5 H INR 1.2 APTT 27.6 Sodium 138 Potassium 4.0 Chloride 104 Carbon Dioxide 20.3 L Anion Gap 14 BUN 17 Creatinine 0.67 L Est GFR (MDRD) Non-Af 91 BUN/Creatinine Ratio 24.7 H Glucose 103 H Calcium 9.4 Magnesium 2.0 Troponin T High Sens 12 D Troponin T Hi Sens 2 Hr 13 Troponin T Hi Sens 4Hr Cancelled NT pro BNP II 685 Radiography Diagnostic Testing: Clinical Impression(s) from Imaging Studies Chest X-Ray 06/23/25 13:47 IMPRESSION: Prior cervical surgery is again seen. Bilateral shoulder degenerative changes, gqbyq-fqhsgal-idjs-left, are again noted. Generalized osteopenia is seen. No acute osseous change is seen. Lungs are hypoinflated, but appear clear of acute disease, and unchanged. No acute pneumonic process is noted. No pleural effusion is clearly evident. No pneumothorax is seen. The cardiomediastinal silhouette is stable, with a partially calcified and tortuous aorta noted. Probable mild cardiomegaly, stable in appearance. Reading Location: [facility] Chest CTA 06/23/25 15:35 IMPRESSION: 1. No pulmonary arterial emboli identified. 2. No thoracic aortic aneurysm or dissection. 3. Cardiomegaly with predominantly left atrial enlargement. 4. No airspace consolidation/edema, or pleural effusions. Reading Location: [facility] Discharge Plan Triage Chief Complaint: Chest Pain ED Provider: Dewayne Vázquez Dx/Rx/DC Orders Clinical Impression: Atrial flutter with rapid ventricular response, Chest pain, Muscular dystrophy Prescriptions: No Action levothyroxine 125 mcg tablet 125 mcg PO QODAY Patient Comments: alternating with 112mcg Rx Instructions: qod levothyroxine 112 mcg tablet 112 mcg PO QODAY Patient Comments: alternating with 125mcg cyclobenzaprine 10 mg tablet 10 mg PO DAILY PRN (Reason: pain) citalopram 10 mg tablet 10 mg PO DAILY metoprolol tartrate 50 mg tablet 50 mg PO Q12H Eliquis 5 mg tablet 5 mg PO BID diltiazem HCl [Cartia XT] 120 mg capsule,extended release 24hr 120 mg PO QDAY Qty: 90 3RF Primary Care Provider: Olivier Olmstead Chi Referrals: Olivier Olmstead Chi, MD [Primary Care Provider] - Print Language: [place] Disposition Disposition: Acute Care Hospital [facility] What to do if you have Problems For any increased pain, shortness of breath, bleeding, nausea or vomiting, chestpain, or any unexpected problems, contact your Primary Care Provider. Call [facility] ([phone]) or report tothe closest Emergency Room. Call 911 if necessary. 06/23/251952 Cosigner Signature (if applicable): CC: Dr. Olivier Olmstead MD ~ Signed [facility]08-26-2025 Radiology Diagnostic study note [facility] [address] [place], [place] [id number] CTA Chest W/WO Contrast MR#: [id number] Acct: [id number] Name: DONNA CEJA Rep #: [id number] 4 : 1950 F 74 From: Eros Cornelius MD PCP: Dr. Olivier Olmstead MD Status: REG E R Study:CTA Chest W/WO Contrast Date of Exam: 06/23/25 Exam# [id number] Ordering Dr: Blue Vázquez DO PROCEDURE: CTA CHEST W/WO CONTRAST 06/23/2025 REASON FOR EXAM: ABNORMAL XR CHEST A. FIB RVR TECHNIQUE: CTA CHEST W/WO CONTRAST Multiplanar Sagittal and Coronal images were obtained. 3D post processing was performed. CONTRAST: Isovue 370 VOLUME: 100 mL One or more dose reduction techniques were used (e.g., Automated exposure control, adjustment of the mA and/or kV according to patient size, use of iterative reconstruction technique). RADIATION DOSE SUMMARY: DLP: 275.5 mGycm COMPARISON: CTA chest 08/02/2020. FINDINGS: PULMONARY VESSELS: No filling defects suspicious for pulmonary arterial emboli identified, althoughthe subsegmental branches are not adequately evaluated due to respiratory motion artifact. Prominent caliber of the central pulmonary vessels may reflect pulmonary arterial hypertension. THORACIC AORTA: Mildly tortuous but normal in caliber. No aneurysm or dissection. Mild atherosclerotic disease. Conventional three-vessel aortic arch branching. HEART: Cardiomegaly with predominantly left atrial enlargement. No pericardial effusion. Mild coronary artery and mitral annulus calcifications. MEDIASTINUM: Unremarkable. No lymphadenopathy. LUNGS/PLEURA: Respiratory motion artifact. Mild bibasilar dependent atelectasis. Small left basilarfat containing Bochdalek hernia. No airspace consolidation or findings of pulmonary edema. No pneumothorax or pleural effusions. The central airways are patent. UPPER ABDOMEN: No significant abnormality. BONES: Subacute-chronic fracture of the sternal manubrium with callus formation. Multilevel degenerative changes of the spine with evidence of DISH, and slightly exaggerated thoracic kyphosis. Partially imaged lower cervical ACDF metallic hardware. Bilateral glenohumeral joint arthrosis. CT/CTA Chest W/WO Contrast IMPRESSION: 1. No pulmonary arterial emboli identified. 2. No thoracic aortic aneurysm or dissection. 3. Cardiomegaly with predominantly left atrial enlargement. 4. No airspace consolidation/edema, or pleural effusions. Reading Location: [id number] CC: Dr. Olivier Olmstead MD; Dr. Dewayne Vázquez, DO ~ Air Carrier Operations Inspector: Signed [facility]08-26-2025 Radiology Diagnostic study note [facility] [address] [place] [id number] Chest 1 View (Portable) MR#: [id number] Acct: [id number] Name: DONNA CEJA Rep #: [id number] 1 : 1950 F 74 From: Carlos Chun MD PCP: Dr. Olivier Olmstead MD Status: PRE E R Study:Chest 1 View (Portable) Date of Exam: 06/23/25 Exam# [id number] Ordering Dr: Rand Grigsby P. PROCEDURE: CHEST 1 VIEW (PORTABLE) 06/23/2025 REASON FOR EXAM: CHEST PAIN TECHNIQUE: Frontal view of the chest. COMPARISON: Chest x-ray of 06/07/2025. RAD/Chest 1 View (Portable) IMPRESSION: Prior cervical surgery is again seen. Bilateral shoulder degenerative changes, ljsqw-ugswkaa-nduo-left, are again noted. Generalized osteopenia is seen. No acute osseous change is seen. Lungs are hypoinflated, but appear clear of acute disease, and unchanged. No acute pneumonic process is noted. No pleural effusion is clearly evident. No pneumothorax is seen. The cardiomediastinal silhouette is stable, with a partially calcified and tortuous aorta noted. Probable mild cardiomegaly, stable in appearance. Reading Location: [place] [address] CC: Dr. Olivier Olmstead MD; ED PHYSICIAN PROVIDER ~ Air Carrier Operations Inspector: Signed [facility]08-26-2025 Discharge summary Author Dewayne Vázquez [facility] Note Date/Time June 23, 2025 7: 56pm [facility] Medical Records Department [address] [place] [address] Emergency Department Summary 06/23/25 MR#: [id number] Acct: [id number] Name: DONNA CEJA Rep #:[id number] 5 : 1950 74 From: Dewayne Vázquez DO PCP: Dr. Olivier Olmstead MD Status:REG E R Location: ED ADDENDUM by Dr. Dewayne Vázquez DO on 06/23/[address] Denis did recommend continuing digoxin on 25 mcg daily and increasing her Cardizem to 180 mg daily 06/23/251955<Electronically signed by Dewayne Vázquez DO> Cosigner Signature (if applicable): cc: Dr. Olivier Olmstead MD ~* Signed HPI History of Present Illness Chief Complaint: Chest Pain Narrative Narrative: Patient is a 74-year-old female with a past medical history of muscular dystrophy, paroxysmal H tachycardia/atrial fibrillation, left bundle branch block, Charcot's Shima tooth disease, hypertension, depression who presented to the emergency department with a chief complaint of chest pressure and concern for atrial fibrillation. Patient states that she recently had seen a nurse practitioner through the [place] [facility] and notes that she was taken off her flecainide and her Cardizem and was placed on metoprolol. She states that she started taking the metoprolol and noted that this started messing with her stomach and notes that this is one of the medications that can mess with her Pezfrag-Qkxuy-Imgyr disease. She states that they called back to the cardiologyteam and they advised her to take her Cardizem again and discontinue the metoprolol. She states that she notes that her heart rate has been increasing and with the pressure in her chest she came here for further evaluation management. According to the family member at bedside she notes that she just recently started taking her Eliquis as she had not been taking this previously as she was concerned about bruising that she bruises very easily. Family bedside notes that her family doctor stressed the high risk of stroke for the patient herself therefore she started taking this. [facility] Medical History (Updated 06/23/25 @ 19:[address] Dewayne Vázquez DO) Anxiety Osteoporosis Kidney stones Former smoker Atrial fibrillation Muscular dystrophy Paroxysmal atrial tachycardia Non-rheumatic mitral regurgitation Nonrheumatic mitral (valve) prolapse Paroxysmal atrial fibrillation History of kidney stones Left bundle branch block Rapfdpb-Sxuyj-Szoay disease Hypotension Depression Home Medications ?Medication ?Instructions ?Recorded ?Last Taken ?Type levothyroxine 125 mcg tablet 125 mcg PO QODAY 11/28/23 06/22/25 History levothyroxine 112 mcg tablet 112 mcg PO QODAY 04/20/25 06/23/25 History diltiazem HCl 120 mg 120 mg PO QDAY #90 caps 05/3006/22/25 Rx capsule,extended release 24 hr (Cartia XT) apixaban 5 mg tablet (Eliquis) 5 mg PO BID 06/23/25 History citalopram 10 mg tablet 10 mg PO DAILY 06/23/2505/30 History cyclobenzaprine 10 mg tablet 10 mg PO DAILY PRN pain 0 06/23/25 Unknown History metoprolol tartrate 50 mg tablet 50 mg PO Q12H 5 06/22/25 History Allergy/AdvReac Type Severity Reaction Status Date / Time prednisone Allergy Intermediate Rash Verified 05/18/25 09:40 adhesive AdvReac Rash Verified 05/18/25 09:40 Family History Mother Hypertension Breast cancer Brother Colon cancer Sister Hypertension Daughter CAD (coronary artery disease) Father Colon cancer Surgical History (Updated 06/23/25 @ 19:35 by Bridget Brian) Hx of thyroidectomy History of appendectomy History of lithotripsy (~10/2017) Hx of cholecystectomy H/O: section H/O: hysterectomy Hx of knee surgery Hx of foot surgery History of tonsillectomy Social History Smoking Status: Former smoker how long ago did patient quit smokin years ago alcohol intake: current alcohol intake frequency: a few times a month caffeine: Yes Type: coffee Number of servings: 2 ROS ROS ED ROS Narrative Constitutional: Denies any fevers, chills, headaches, lightness, dizziness Eyes: Denies change in vision double vision blurry vision Cardiovascular: Complains of chest pressure as noted above and palpitations Respiratory: Denies coughing wheezing shortness of breath Abdomen: Denies abdominal pain nausea vomiting diarrhea : Denies any urinary symptoms Neurological: Denies numbness, weakness, tingling Musculoskeletal: Denies back pain Skin: Denies any rashes or lesions EXAM Physical Exam Narrative Exam Narrative: General: Patient lying in bed rest comfortably not appear to be acute distress Head: Atraumatic, normocephalic Eyes: PERRL bilaterally, EOMI bilateral, no conjunctival injection noted Neck: Soft, supple, trachea midline Cardiovascular: Patient has an irregular irregular rhythm and tachycardic Respiratory: Clear to auscultation bilaterally Abdomen: Soft, nondistended, nontender to palpation Extremities: +5/5 strength noted in the bilateral lower extremities Neurological: Patient following commands knew that she was at [facility] year is 2024 Skin: Warm, dry, tact no rashes or lesions noted Const Vital Signs: 06/23/25 13:48 06/23/25 14:25 06/23/25 14:26 Temperature 97.8 F Temperature Source Temporal Pulse Rate 78 Respiratory Rate 20 H Respiratory Effort Normal Non-Labored Blood Pressure 159/82 H Blood Pressure Mean 107 Blood Pressure Source Blood Pressure Position Blood Pressure Location Pulse Ox 97 Oxygen Delivery Method Room Air Nasal Cannula 06/23/25 14:47 06/23/25 15:00 06/23/25 16:00 Temperature Temperature Source Pulse Rate 111 H 130 H 78 Respiratory Rate 12 25 H Respiratory Effort Blood Pressure 132/78 H 114/77 124/80 H Blood Pressure Mean 96 89 94 Blood Pressure Source Blood Pressure Position Blood Pressure Location Pulse Ox 97 97 100 Oxygen Delivery Method 06/23/25 16:23 06/23/25 16:28 06/23/25 17:00 Temperature Temperature Source Pulse Rate 112 H 110 H 109 H Respiratory Rate 16 Respiratory Effort Blood Pressure 129/53 H 117/66 133/76 H Blood Pressure Mean 78 83 95 Blood Pressure Source Blood Pressure Position Blood Pressure Location Pulse Ox 99 99 99 Oxygen Delivery Method 06/23/25 18:00 06/23/25 19:00 06/23/25 19:40 Temperature 98.3 F Temperature Source Oral Pulse Rate 111 H 112 H 112 H Respiratory Rate 18 18 18 Respiratory Effort Blood Pressure 146/76 H 122/80 H 140/89 H Blood Pressure Mean 99 94 106 Blood Pressure Source Monitor Blood Pressure Position Semi-Fowlers Blood Pressure Location Left Arm Pulse Ox 100 100 98 Oxygen Delivery Method Room Air Room Air Room Air 06/23/25 19:41 Temperature 98.3 F Temperature Source Pulse Rate 112 H Respiratory Rate 18 Respiratory Effort Blood Pressure 140/89 H Blood Pressure Mean 106 Blood Pressure Source Blood Pressure Position Blood Pressure Location Pulse Ox 97 Oxygen Delivery Method MDM MDM MDM Narrative Medical decision making narrative: Patient is a 74-year-old female who presents to the emergency department chief complaint chest pressure and concern for A-fib with elevated heart rate. On thedifferential diagnosis includes but not limited to A-fib with RVR secondary to medication adjustments, pneumonia, pneumothorax, ACS, electrolyte abnormality. Once the workup is obtained reviewed she will be reevaluated. Patient CBC reviewed which showed no leukocytosis white blood count was 6.6, he was 14.3, plate count was 8225. Patient INR normal 1.2, PT of 15.5. Patient sodium is 130, potassium normal at 4, creatinine was 0.67. Patient's magnesium level normal at 2, troponin was 12 with a delta troponin of 13. Patient's EKG showed atrial flutter with variable block with a rate of 139 bpm, proBNP of 65. Patient's chest x-ray reviewed by myself and by radiology and showed prior cervical surgery noted bilateral shoulder degenerative changes noted no acute cardiopulmonary processes she does have a partially calcified and tortuous aortanoted. I did add on a CTA of the chest. CTA of the chest reviewed and showed no pulmonary arterial emboli identified no aneurysm dissection cardiomegaly withpredominantly left atrial enlargement no airspace consolidation edema or pleuraleffusions. Early on in the visit I reached out to on-call network operations manager Dr. Denis and had discussion in regards to medications to control her rate as she had been previously on flecainide Cardizem with recent medication adjustments she had these discontinued and was placed on metoprolol. However she was not toleratingmetoprolol as she was having a lot of abdominal and GI symptoms from this therefore they told her to take her Cardizem again which did not work. I did review her echocardiogram which showed a ejection fraction of 35% this was done on 06/11/2025 which also showed mild to moderate global hypokinesis of the left ventricle. I wanted discussed with him in regards to Cardizem bolus given her heart failure and not using amiodarone as she has not been compliant with her Eliquis. He is agreeable with this he states that we can do a Cardizem bolus aswell as digoxin load. Patient was observed here in the emergency department and she remains in a tachycardic rate with atrial flutter of 110-115 range despite these medications. I reached out again to Dr. Denis and he is recommending a Cardizem drip and admission to the hospital for rate control. Cardizem drip was ordered. Cardizem drip was ordered and will discuss case with hospitalist for admission. Did discuss case with hospitalist Dr. Bolivar who accept the patient. Did notify the patient and daughter at bedside all question concerns answered. Lab Data Labs: Laboratory Results - last 24 hr 06/23/25 06/23/25 06/23/25 14:06 15:50 17:50 WBC 6.6 RBC 4.32 Hgb 14.3 Hct 42.4 MCV 98.1 MCH 33.1 H MCHC 33.7 RDW Std Deviation 46.6 H RDW Coeff of Viktoria 13.1 Plt Count 225 MPV 10.6 Immature Gran % (Auto) 0.300 Neut % (Auto) 69.2 Lymph % (Auto) 19.8 [place]. Joseph % (Auto) 7.9 Eos % (Auto) 2.3 Baso % (Auto) 0.5 Absolute Neuts (auto) 4.5 Absolute Lymphs (auto) 1.30 Nucleated RBC % 0 PT 15.5 H INR 1.2 APTT 27.6 Sodium 138 Potassium 4.0 Chloride 104 Carbon Dioxide 20.3 L Anion Gap 14 BUN 17 Creatinine 0.67 L Est GFR (MDRD) Non-Af 91 BUN/Creatinine Ratio 24.7 H Glucose 103 H Calcium 9.4 Magnesium 2.0 Troponin T High Sens 12 D Troponin T Hi Sens 2 Hr 13 Troponin T Hi Sens 4Hr Cancelled NT pro BNP II 685 Radiography Diagnostic Testing: Clinical Impression(s) from Imaging Studies Chest X-Ray 06/23/25 13:47 IMPRESSION: Prior cervical surgery is again seen. Bilateral shoulder degenerative changes, mnueu-ismajac-mlev-left, are again noted. Generalized osteopenia is seen. No acute osseous change is seen. Lungs are hypoinflated, but appear clear of acute disease, and unchanged. No acute pneumonic process is noted. No pleural effusion is clearly evident. No pneumothorax is seen. The cardiomediastinal silhouette is stable, with a partially calcified and tortuous aorta noted. Probable mild cardiomegaly, stable in appearance. Reading Location: [place] [address] Chest CTA 06/23/25 15:35 IMPRESSION: 1. No pulmonary arterial emboli identified. 2. No thoracic aortic aneurysm or dissection. 3. Cardiomegaly with predominantly left atrial enlargement. 4. No airspace consolidation/edema, or pleural effusions. Reading Location: [facility] Discharge Plan Triage Chief Complaint: Chest Pain ED Provider: Dewayne Vázquez Dx/Rx/DC Orders Clinical Impression: Atrial flutter with rapid ventricular response, Chest pain, Muscular dystrophy Prescriptions: No Action levothyroxine 125 mcg tablet 125 mcg PO QODAY Patient Comments: alternating with 112mcg Rx Instructions: qod levothyroxine 112 mcg tablet 112 mcg PO QODAY Patient Comments: alternating with 125mcg cyclobenzaprine 10 mg tablet 10 mg PO DAILY PRN (Reason: pain) citalopram 10 mg tablet 10 mg PO DAILY metoprolol tartrate 50 mg tablet 50 mg PO Q12H Eliquis 5 mg tablet 5 mg PO BID diltiazem HCl [Cartia XT] 120 mg capsule,extended release 24hr 120 mg PO QDAY Qty: 90 3RF Primary Care Provider: Olivier Olmstead Chi Referrals: Olivier Olmstead Chi, MD [Primary Care Provider] - Print Language: [place] Disposition Disposition: Acute Care Hospital [facility] What to do if you have Problems For any increased pain, shortness of breath, bleeding, nausea or vomiting, chestpain, or any unexpected problems, contact your Primary Care Provider. Call [facility] ([phone]) or report to the closest Emergency Room. Call 911 if necessary. 06/23/251952 <Electronically signed by eDwayne Vázquez DO> Cosigner Signature (if applicable): CC: Dr. Olivier Olmstead MD ~ Signed [facility] Work Phone: 1(139) 395-792108-11-2025 Discharge summary [facility] Medical Records Department [address] [place] [address] Emergency Department Summary 06/07/25 MR#: [id number] Acct: [id number] Name: DONNA CEJA Rep #:[id number] 3 : 1950 74 From: Carlos Swanson [...] breath. Patient does admit to a mild c ough. Patient denies any nausea or vomiting. Patient denies any diaphoresis. [facility] Medical History Muscular dystrophy Paroxysmal atrial tachycardia Non-rheumatic mitral regurgitation Nonrheumatic mitral (valve) prolapse Paroxysmal atrial fibrillation History of kidney stones Left bundle branch block Fupqlzh-Xnvqx-Rvadv disease Hypotension Depression Home Medications ?Medication ?Instructions [...] reviewed and is slightly elevated at 15. 2-hourrepeat high-sensitivity troponin was reviewed and was slightly [...] % (Auto) 53.4 Lymph % (Auto) 36.1 [place] % (Auto) 7.3 Eos % (Auto) 2.4 [...] improved mild pulmonary vascular congestion. Reading Location: [facility] Portable 1 view chest x-ray was obtained. [...] independent interpretation, shows atrial fibrillation with a rateof 115. QRS interval was slightly prolonged at 156 ms. QTc interval was prolonged at 525 ms. There is left axis deviation -61. There is a left bundle branch block pattern noted. There are nonspecificST-T wave changes noted. Prior EKG tracings: available for review Prior: Unchanged (04/20/2025) Follow-up EKG: Attestation: I personally reviewed and interpreted this EKG as follows: Interpretation: Sinus Tachycardia (117) and Non-Specific ST Changes Comments: Repeat EKG was obtained. On my independent interpretation, which showed sinus tachycardiacardia with a rate of 117. OR interval was normal at 120 ms. QRS interval was prolonged at 142 ms. QTc interval was prolonged at 527 ms. There is left axis deviation at -50. There is a nonspecific intraventricular conduction delay. There is left ventricular hypertrophy with nonspecific ST-T wave changes. Treatment and Re-Evaluation :: Patient was given aspirin here. Patient was given a dose of Cardizem. Patient's heart rate remainedelevated in the 120s. Patient was given a dose ofmetoprolol. Patient converted to sinus rhythm. Patient is feeling better on reevaluation. Patient was instructed to follow-up with her network operations manager this week as scheduled. Patient was instructed to continue with the medications as previously prescribed. Patient was instructed to return to placental weight. Patient understood and was agreeable with the plan. All questions were answered. Discharge Plan Triage Chief Complaint: Palpitations ED Provider: Carlos Darnell Dx/Rx/DC Orders Clinical Impression: Paroxysmal atrial fibrillation, Left bundle branch block, CMT (Hxvgtad-Nduie-Xptqp disease) Instructions: ED AFIB, ED Palpitations Prescriptions: [...] Primary Care Provider: Olivier Olmstead Chi Referrals: Anastcaio Scruggs MD [Med Staff - Active Staff] - Keep Ken appointment Olivier Olmstead Chi, MD [Primary Care Provider] - 3-5 Days Print Language: [place] Disposition Disposition: Home, Self Care What to do if you have Problems For any increased pain, shortness of breath, bleeding, nausea or vomiting, chestpain, or any unexpected problems, contact your Primary Care Provider. Call [facility] ([phone]) or report tothe closest Emergency Room. Call 911 if necessary. 06/08/25 0253 Cosigner Signature (if applicable): CC: Dr. Olivier Olmstead MD ~ Signed [facility]08-10-2025 Radiology Diagnostic study note [facility] [address], [place] [address] Chest 1 View (Portable) MR#: [id number] Acct: [id number] Name: DONNA CEJA Rep #: [id number] 6 : 1950 F 74 From: Jonathan Iyer MD PCP: Dr. Olivier Olmstead MD Status: REG E R Study:Chest 1 View (Portable) Date of Exam: 06/07/25 Exam# [id number] Ordering Dr: Carlos Darnell DO PROCEDURE: CHEST [...] improved mild pulmonary vascular congestion. Reading Location: [facility] CC: Dr. Carlos Darnell DO; Dr. Olivier Olmstead MD ~ Air Carrier Operations Inspector: Signed [facility]08-10-2025 Discharge summary Author Carlos Darnell [facility] Note Date/Time June 08, 2025 2: 53am [facility] Medical Records Department [address] [place] [address] Emergency Department Summary 06/07/25 MR#: [id number] Acct: [id number] Name: DONNA CEJA Rep #:[id number] 3 : 1950 74 From: Carlos Swanson [...] nausea or vomiting. Patient denies any diaphoresis. [facility] Medical History Muscular dystrophy Paroxysmal atrial tachycardia Non-rheumatic mitral regurgitation Nonrheumatic mitral (valve) prolapse Paroxysmal atrial fibrillation History of kidney stones Left bundle branch block Ytceioq-Wnkoo-Tllra disease Hypotension Depression Home Medications ?Medication ?Instructions [...] % (Auto) 53.4 Lymph % (Auto) 36.1 [facility] Joseph % (Auto) 7.3 Eos % (Auto) 2.4 [...] improved mild pulmonary vascular congestion. Reading Location: [facility] Portable 1 view chest x-ray was obtained. [...] tachycardia cardia with a rate of 117. OR interval was normal at 120 ms. QRS [...] Patient was instructed to follow-up with her network operations manager this week as scheduled. Patient was instructed to continue with the medications as previously prescribed. Patient was instructed to return to placental weight. Patient understood and was agreeable with the plan. All questions were answered. Discharge Plan Triage Chief Complaint: Palpitations ED Provider: Carlos Darnell Dx/Rx/DC Orders Clinical Impression: Paroxysmal atrial fibrillation, Left bundle branch block, CMT (Dvgedga-Jkdpx-Ojadt disease) Instructions: ED AFIB, ED Palpitations Prescriptions: [...] Care Provider] - 3-5 Days Print Language: [place] Disposition Disposition: Home, Self Care What to do if you have Problems For any increased pain, shortness of breath, bleeding, nausea or vomiting, chestpain, or any unexpected problems, contact your Primary Care Provider. Call [facility] ([phone]) or report to the closest Emergency Room. Call 911 if necessary. 06/08/25 0253 <Electronically signed by Carlos Darnell DO> Cosigner Signature (if applicable): CC: Dr. Olivier Olmstead MD ~ Signed [facility] Work Phone: 1(489) 396-665408-06-2025 Radiology Diagnostic study note [facility] [address] [place] [address] L/S Spine Min 4 Views MR#: [id number] Acct: [id number] Name: DONNA CEJA Rep #: [id number] 9 : 1950 F 74 From: Tawana Ramos MD PCP: Dr. Olivier Olmstead MD Status: REG C LI Study:L/S Spine Min 4 Views Date of Exam: 06/02/25 Exam# [id number] Ordering Dr: Olivier Olmstead MD PROCEDURE: L/S [...] Spondylosis. Findings have mildly progressed. Reading Location: [id number] CC: Dr. Olivier Olmstead MD ~ Air Carrier Operations Inspector: Signed [facility]07-21-2025 Evaluation note* Diagnosis Onset Date Resolution Status Admit Date Chest pain acute May 18 9:27am Hypertension acute May 18, 2 025 9:27am Nonrheumatic mitral (valve) prolapse acute May 18, 2025 9:27am Paroxysmal atrial tachycardia acute May 18, 2025 9:27am Paroxysmal atrial fibrillation chron ic May 18, 2025 9:27am [facility] Work Phone: [phone]) 790-618507-21-2025 Evaluation note* Diagnosis Onset Date Resolution Status Admit Date Chest pain acute May 18 9:27am Hypertension acute May 18, 2 025 9:27am Nonrheumatic mitral (valve) prolapse acute May 18, 2025 9:27am Paroxysmal atrial tachycardia acute May 18, 2025 9:27am Paroxysmal atrial fibrillation chron ic May 18, 2025 9:27am Adverse drug reaction acute May 8:19pm Atrial flutter with rapid ventricular response acute May 8:19pm Vdfrrjw-Rfcte-Vxukb disease acute June 23, 2025 8:19pm Chest pain acute June 23, 025 8:19pm Muscular dystrophy acute June 23, 2025 8:19pm [facility] Work Phone: [phone]) 419-376107-21-2025 Evaluation note* Diagnosis Onset Date Resolution Status Admit Date Chest pain acute May 18 9:27am Hypertension acute May 18, 2 025 9:27am Nonrheumatic mitral (valve) prolapse acute May 18, 2025 9:27am Paroxysmal atrial tachycardia acute May 18, 2025 9:27am Paroxysmal atrial fibrillation chron ic May 18, 2025 9:27am Adverse drug reaction acute May 3:12pm Atrial flutter with rapid ventricular response acute May 3:12pm Doavujy-Ybkqe-Erihw disease acute June 24, 2025 3:12pm Chest pain acute June 24, 2 025 3:12pm Muscular dystrophy acute June 24, 2025 3:12pm Overweight (BMI 25.0-29.9) acute June 24, 2025 3:12pm CMT (Cyrayqm-Qween-Mvylg disease) chronic June 24 3:12pm DDD (degenerative disc disea se), lumbar chronic June 24 3:12pm Hypothyroidism chronic May 3:12pm [facility] Work Phone: [phone]) 187-979207-21-2025 Evaluation note* Diagnosis Onset Date Resolution Status Admit Date Chest pain acute May 18 9:27am Hypertension acute May 18, 2 025 9:27am Nonrheumatic mitral (valve) prolapse acute May 18, 2025 9:27am Paroxysmal atrial tachycardia acute May 18, 2025 9:27am Paroxysmal atrial fibrillation chron ic May 18, 2025 9:27am Adverse drug reaction acute May 3:12pm Atrial flutter with rapid ventricular response acute May 3:12pm Ayzrgxl-Ujzjc-Lqtjf disease acute June 24, 2025 3:12pm Chest pain acute June 24, 2 025 3:12pm Muscular dystrophy acute June 24, 2025 3:12pm Overweight (BMI 25.0-29.9) acute June 24, 2025 3:12pm CMT (Bfbddph-Psyzz-Jvhwc disease) chronic June 24 3:12pm DDD (degenerative disc disease), lumbar chronic June 24 3:12pm Hypothyroidism chronic May 3:12pm Chest pain acute July 03, 2025 1:51pm Hypertension acute June 1:51pm Nonrheumatic mitral (valve) prolapse acute July 03, 2 025 1:51pm Paroxysmal atrial tachycardia acute July 03, 2025 1:51pm Paroxysmal atrial fibrillation chron ic July 03, 2025 1:51pm [facility] Work Phone: [phone]) 387-281707-21-2025 Evaluation note* Diagnosis Onset Date Resolution Status Admit Date Chest pain acute May 18 9:27am Hypertension acute May 18, 2 025 9:27am Nonrheumatic mitral (valve) prolapse acute May 18, 2025 9:27am Paroxysmal atrial tachycardia acute May 18, 2025 9:27am Paroxysmal atrial fibrillation chron ic May 18, 2025 9:27am Adverse drug reaction acute May 3:12pm Rhfwtah-Zjwvt-Ccqsl disease acute June 24, 2025 3:12pm Chest pain acute June 24, 2 025 3:12pm Muscular dystrophy acute June 24, 2025 3:12pm Overweight (BMI 25.0-29.9) acute June 24, 2025 3:12pm CMT (Rgrovij-Midyt-Tzpgn disease) chronic June 24 3:12pm DDD (degenerative disc disease), lumbar chronic June 24 3:12pm Hypothyroidism chronic May 3:12pm Atrial flutter with rapid ventricular response resolved May 3:12pm HFrEF (heart failure with reduced ejection fraction) acute 2024 1:51pm Hypertension acute June 1:51pm Nonrheumatic mitral (valve) prolapse acute July 03, 2 025 1:51pm Paroxysmal atrial tachycardia acute July 03, 2025 1:51pm Paroxysmal atrial fibrillation chron ic July 03, 2025 1:51pm HFrEF (heart failure with reduced ejection fraction) acute 2024 12:52pm Hypertension acute July 212024 12:52pm Nonrheumatic mitral (valve) prolapse acute July 21, 2025 12:52pm Paroxysmal atrial tachycardia acute July 21, 2025 12:52pm Paroxysmal atrial fibrillation chron ic July 21, 2025 12:52pm [facility] Work Phone: [phone]) 330-678407-21-2025 Evaluation note* Diagnosis Onset Date Resolution Status Admit Date Chest pain acute May 18 9:27am Hypertension acute May 18, 2 025 9:27am Nonrheumatic mitral (valve) prolapse acute May 18, 2025 9:27am Paroxysmal atrial tachycardia acute May 18, 2025 9:27am Paroxysmal atrial fibrillation chron ic May 18, 2025 9:27am Adverse drug reaction acute May 3:12pm Htcfvnu-Apioz-Ywhah disease acute June 24, 2025 3:12pm Chest pain acute June 24, 2 025 3:12pm Muscular dystrophy acute June 24, 2025 3:12pm Overweight (BMI 25.0-29.9) acute June 24, 2025 3:12pm CMT (Taavbpd-Udwra-Rbsyy disease) chronic June 24 3:12pm DDD (degenerative disc disease), lumbar chronic June 24 3:12pm Hypothyroidism chronic May 3:12pm Atrial flutter with rapid ventricular response resolved May 3:12pm HFrEF (heart failure with reduced ejection fraction) acute 2024 1:51pm Hypertension acute June 1:51pm Nonrheumatic mitral (valve) prolapse acute July 03, 2 025 1:51pm Paroxysmal atrial tachycardia acute July 03, 2025 1:51pm Paroxysmal atrial fibrillation chron ic July 03, 2025 1:51pm HFrEF (heart failure with reduced ejection fraction) acute Septe mber 2024 12:52pm Hypertension acute July 212024 12:52pm Nonrheumatic mitral (valve) prolapse acute July 21, 2025 12:52pm Paroxysmal atrial tachycardia acute July 21, 2025 12:52pm Paroxysmal atrial fibrillation chron ic July 21, 2025 12:52pm HFrEF (heart failure with reduced ejection fraction) acute Octob er 2024 8:51am Hypertension acute July 8:51am Non-rheumatic mitral regurgitation chronic August 07 8:51am Paroxysmal atrial fibrillation chron ic August 07, 2025 8:51am HFrEF (heart failure with reduced ejection fraction) acute Octob er 2024 3:00pm Hypertension acute July 3:00pm Nonrheumatic mitral (valve) prolapse acute August 17 3:00pm CHON (obstructive sleep apnea) acute August 17, 2025 3:00pm Paroxysmal atrial tachycardia acute August 17, 2025 3:00pm Paroxysmal atrial fibrillation chron ic August 17, 2025 3:00pm [facility] Work Phone: 1(161) 239-915706-23-2025 Discharge summary [facility] Medical Records Department [address] [place] [address] Emergency Department Summary 04/20/25 MR#: [id number] Acct: [id number] Name: DONNA CEJA Rep #:[id number] 9 : 1950 74 From: Dewayne Vázquez DO PCP: Dr. Olivier Olmstead MD Status:REG E R Location: ED HPI History of Present Illness Chief Complaint: Hypertension Narrative Narrative: Patient is a 74-year-old female past medical history of paroxysmal atrial fibrillation, [place]arc[place] Shima tooth disease hypertension, depression who presents to the emergency department chief complaint of elevated blood pressure. Patientstates that she has noted that last several days her blood pressure had been running high she notes that she tried to call her network operations manager they did not answer therefore she came here for further evaluation management. States that when her blood pressure is elevatedshe knows that she has a headache associatedwith this. Patient states that she has been taking her medications as prescribed not missing doses [facility] Medical History (Updated 04/20/25 @ 14:[address] Dewayne Vázquez DO) Muscular dystrophy Paroxysmal atrial tachycardia Non-rheumatic mitral regurgitation Nonrheumatic mitral (valve) prolapse Paroxysmal atrial fibrillation History of kidney stones Left bundle branch block Otkpcxi-Spamb-Ytryi disease Hypotension Depression Home Medications ?Medication ?Instructions [...] follow commands knew that she was at [facility] the year is 2024 Skin: [...] evidence of first-degree AV block with a OR interval of 240. Patient's chest x-ray reviewed [...] first-degree AV block with premature supraventricular complexes OR interval of 216 evidence of first-degree AV [...] (Auto) 71.0 H Lymph % (Auto) 20.5 [facility] % (Auto) 5.7 Eos % (Auto) 2.3 [...] may represent a trace effusion. Reading Location: [facility] Discharge Plan Triage Chief Complaint: Hypertension [...] Return with any other concerns Print Language: [place] Disposition Disposition: Home, Self Care What to do if you have Problems For any increased pain, shortness of breath, bleeding, nausea or vomiting, chestpain, or any unexpected problems, contact your Primary Care Provider. Call [facility] ([phone]) or report tothe closest Emergency Room. Call 911 if necessary. 04/20/25 7511 Cosigner Signature (if applicable): CC: Dr. Olivier Olmstead MD ~ Signed [facility]06-23-2025 Discharge summary Author Dewayne Vázquez [facility] Note Date/Time April 20, 2025 2:39 pm [facility] Medical Records Department [address] [place] [address] Emergency Department Summary 04/20/25 MR#: [id number] Acct: [id number] Name: DONNA CEJA Rep #:[id number] : 1950 74 From: Dewayne Vázquez DO PCP: Dr. Olivier Olmstead MD Status:REG E R Location: ED HPI History of Present Illness Chief Complaint: Hypertension Narrative Narrative: Patient is a 74-year-old female past medical history of paroxysmal atrial fibrillation, [place] tooth disease hypertension, depression who presents to the emergency department chief complaint of elevated blood pressure. Patientstates that she has noted that last several days her blood pressure had been running high she notes that she tried to call her network operations manager they did not answer therefore she came here for further evaluation management. States that when her blood pressure is elevated she knows that she has a headache associatedwith this. Patient states that she has been taking her medications as prescribed not missing doses [facility] Medical History (Updated 04/20/25 @ 14:[address] Dewayne Vázquez DO) Muscular dystrophy Paroxysmal atrial tachycardia Non-rheumatic mitral regurgitation Nonrheumatic mitral (valve) prolapse Paroxysmal atrial fibrillation History of kidney stones Left bundle branch block Todwynw-Cpsos-Zsxeu disease Hypotension Depression Home Medications ?Medication ?Instructions [...] follow commands knew that she was at [facility] the year is 2024 Skin: [...] evidence of first-degree AV block with a OR interval of 240. Patient's chest x-ray reviewed [...] first-degree AV block with premature supraventricular complexes OR interval of 216 evidence of first-degree AV [...] (Auto) 71.0 H Lymph % (Auto) 20.5 [facility] % (Auto) 5.7 Eos % (Auto) 2.3 [...] may represent a trace effusion. Reading [facility] Discharge Plan Triage Chief Complaint: Hypertension ED [...] Return with any other concerns Print Language: [place] Disposition Disposition: Home, Self Care What to do if you have Problems For any increased pain, shortness of breath, bleeding, nausea or vomiting, chestpain, or any unexpected problems, contact your Primary Care Provider. Call [facility] ([phone]) or report to the closest Emergency Room. Call 911 if necessary. 04/20/25 143 <Electronically signed by Dewayne Vázquez DO> Cosigner Signature (if applicable): CC: Dr. Olivier Olmstead MD ~ Signed [facility] Work Phone: 1(294) 669-739806-23-2025 Radiology Diagnostic study note [facility] [address] [place] [address] Chest PA and Lateral MR#: [id number] Acct: [id number] Name: DONNA CEJA Rep #: [id number] 9 : 1950 F 74 From: Maxwell Richardson MD PCP: Dr. Olivire Olmstead MD Status: PRE E R Study:Chest PA and Lateral Date of Exam: 04/20/25 Exam# [id number] Ordering Dr: Blue Vázquez DO PROCEDURE: CHEST [...] Olmstead MD; Dr. Dewayne Vázquez DO ~ Air Carrier Operations Inspector: Signed [facility]06-23-2025 Hospital Discharge instructions Additional Instructions Follow-up [...] any medication adjustments. [facility] Work Phone: 1([phone]) 668-350506-09-2025 Radiology Diagnostic study note [facility] [address] [place] [address] CT Chest, Abd, Pel w/Contrast MR#: [id number] Acct: [id number] Name: DONNA CEJA Rep #: [id number] 2 : 1950 F 74 From: Risa Dickinson MD PCP: Dr. Olivier Olmstead MD Status: [facility] Study:CT Chest, Abd, Pel w/Contrast Date of E xam: 04/06/25 Exam# [id number] Ordering Dr: Olivier Olmstead MD PROCEDURE: CT [...] effusion or pneumothorax. Bones: Bilateral shoulder arthrosis, wsxqm-sopjchb-ffhn-left. Exaggerated kyphosis of the thoracic spine with [...] splenomegaly, which may represent fibrosis/cirrhosis. Reading Location: [facility] CC: Dr. Olivier Olmstead MD ~ Air Carrier Operations Inspector: Signed [place] [address]-27-2025 Evaluation note* Diagnosis Onset Date Resolution Status Admit Date Long-term use of high-risk medication acute December 25 025 11:23am Non-rheumatic mitral regurgitation chronic December 25 11:23am Paroxysmal atrial fibrillation chron ic December 25, 2024 11:23am [facility] Work Phone: Evaluation noteNo assessment information available [facility] Work Phone: Evaluation note* Diagnosis Onset Date Resolution Status Back pain acute Segmental and somatic dysfunction of lumbar region acute Segmental and somatic dysfunction of pelvic region acute Segmental and somatic dysfunction of thoracic region acute CMT (Fglwdlu-Hkfbt-Yoolb disease) chronic DDD (degenerative disc disease), lumbar chronic Back pain acute Segmental and somatic dysfunction of lumbar region acute Segmental and somatic dysfunction of pelvic region acute CMT (Gcojjij-Kbyfh-Aowzp disease) chronic DDD (degenerative disc disease), lumbar chronic Back pain acute Segmental and somatic dysfunction of lumbar region acute Segmental and somatic dysfunction of pelvic region acute CMT (Qdykktl-Pslnp-Gyjds disease) chronic DDD (degenerative disc disease), lumbar chronic [facility] Work Phone: Evaluation note* Diagnosis Onset Date Resolution Status Nonrheumatic mitral (valve) prolapse acute Paroxysmal atrial tachycardia acute Left bundle branch block chr onic Non-rheumatic mitral regurgitation chronic Paroxysmal atrial fibrillation chronic [facility] Work Phone: Evaluation note* Diagnosis Onset Date Resolution Status Nonrheumatic mitral (valve) prolapse acute Left bundle branch block chr onic Non-rheumatic mitral regurgitation chronic Paroxysmal atrial fibrillation chronic [facility] Work Phone: Evaluation note* Diagnosis Onset Date Resolution Status Nonrheumatic mitral (valve) prolapse acute Left bundle branch block chr onic Non-rheumatic mitral regurgitation chronic Paroxysmal atrial fibrillation chronic Abdominal pain acute [facility] Work Phone: Hospital Discharge instructionsAmbulatory Orders* Electrophysiology Location: None [facility] Work Phone: Progress note Author Asim Ruiz [facility] Note Date/Time August 07, 2025 9 :42am [facility] [address] [place] [address] OFFICE VISIT Date of Service: 08/07/25 MR#: [id number] Acct: [id number] Name: DONNA CEJA Rep #: [id number] : 1950 Provider: Dr. Lis Ruiz MD Age/Sex: 75/F Location: [facility] Status: Signed HPI HPI History of Present Illness Surgical H&P: No Details: The patient presents for evaluation of persistent atrial fibrillation and management of nonischemic cardiomyopathy. The patient is a 74-year-old female with a history of nonrheumatic mitral valve regurgitation, left bundle branch block, Frkqsoj-Wdcnu-Fwskd disease, and longstanding atrial fibrillation diagnosed approximately 18 years ago. She has abackground of nonischemic dilated cardiomyopathy, with a significant decline in left ventricular ejection fraction (LVEF) from 60% in December 2023 to 35% in May 2025. The patient also has a history of sleep apnea with intolerance to CPAP therapy. Since her last office visit, the patient underwent a cardioversion on July, which resulted in only transient mandaeism of sinus rhythm, with recurrence of atrial fibrillation within hours. She reports intermittent episodes of palpitations described as a sensation of pressure and rapid heartbeat, typically lasting only seconds and resolving spontaneously. She denies prolonged episodes of arrhythmia. The patient also describes episodes of lightheadedness or a sensation of being spaced out," particularly when sitting or after standing, which may be related to fluctuations in blood pressure. She notes that her blood pressure is labile, with occasional readings in the 90s systolic, but she generally feels well at these levels. She has a history of postural orthostatic tachycardia syndrome (POTS), with prior failed tilt table testing, and experiences orthostatic symptoms without clear positional changes. She also reports a history of diverticulosis with intermittent episodes of gastrointestinal bleeding lasting two to three days, which resolve spontaneously. The patient?s arrhythmia has been refractory to multiple antiarrhythmic agents, including intolerance to metoprolol and flecainide. She is currently maintained on amiodarone and Eliquis. Holter monitoring from July 16?2024, demonstrated persistent atrial fibrillation with an average ventricular responseof 104 bpm. Despite amiodarone initiation on July 21, 2025, and subsequent cardioversion, atrial fibrillation has recurred. Additional test results: - Echocardiogram on January 02, 2024: LVEF 60%, normal left ventricular size, severe left atrial dilation, moderate anteriorly directed mitral insufficiency. - Echocardiogram on June 11, 2025: LVEF 35%, mild to moderate global hypokinesis, moderate left atrial enlargement, mild mitral insufficiency. - Serial EKGs from 2020?2023: Sinus rhythm documented. - EKG post-cardioversion (July 2025): Recurrence of atrial fibrillation within hours. Problem list summary: - Persistent atrial fibrillation, refractory to multiple antiarrhythmic therapies. - Nonischemic dilated cardiomyopathy with significant reduction in LVEF over thepast year. - Mitral regurgitation, improved from moderate to mild on most recent imaging. - Labile blood pressure with orthostatic symptoms and history of POTS. - Sleep apnea, intolerant of CPAP therapy. - History of diverticulosis with intermittent GI bleeding. Twelve-lead EKG in the office today shows sinus rhythm at 67 bpm. There is leftaxis deviation. ROS: CONSTITUTIONAL: No fever, no chills, no fatigue, no weight gain, no weight loss HEENT: No hearing loss, no sinus pressure, no visual changes RESPIRATORY: No cough, no shortness of breath, no wheezing CARDIOVASCULAR: Chest pressure (intermittent, brief episodes), palpitations (intermittent, brief episodes), no chest pain, no pain while walking, no edema GASTROINTESTINAL: No abdominal pain, blood in stool (positive, associated with diverticulosis/diverticulitis episodes), no constipation, no diarrhea, no heartburn, no loss of appetite, no nausea, no vomiting GENITOURINARY: No painful urination, no excessive amount of urine, no urinary frequency NEUROLOGICAL: Dizziness (positive, described as "spacing out" or "not quite dizzy" spells, associated with low blood pressure), no extremity numbness, no extremity weakness, no headaches, no seizures, no tremors PSYCHIATRIC: No anxiety, no depression INTEGUMENTARY: No rash, no hives, no breast discharge, no breast lump, no mole changes, no skin lesion MUSCULOSKELETAL: No back pain, no joint pain, no joint swelling, no neck pain HEMATOLOGIC: Easily bleeds (positive, related to blood thinners and diverticulosis), no easy bruising, no lymphedema, no issues with blood clots IMMUNOLOGIC: No food allergies, no seasonal allergies PE: GENERAL APPEARANCE: The patient is alert, oriented, and conversant throughout the encounter. She is able to answer questions appropriately and participate in discussion. No acute distress is observed. Speech is clear and coherent. She is seated comfortably and demonstrates appropriate affect. LUNGS: No increased work of breathing is noted. No mention of abnormal breath sounds orrespiratory distress. Lungs are clear to auscultation bilaterally. CARDIAC: Cardiac auscultation reveals an irregularly irregular rhythm consistent with atrial fibrillation. No murmurs, rubs, or gallops are noted. No peripheral edemais observed. NEUROLOGICAL: The patient is alert and oriented. Speech is fluent and appropriate. No focal neurological deficits are observed. No gait abnormalities are noted during the encounter. PSYCHIATRIC: Mood and affect are appropriate. The patient is cooperative and demonstrates good insight and judgment. No evidence of anxiety, depression, or agitation is observed. Intake Vital Signs 07/21/25 07:09 07/29/25 11:13 08/07/25 09:09 08/07/25 09:12 Height 5 ft 3 in 5 ft 3 in 5 ft 3 in Weight: 171 lb BP 154/76 H Blood Pressure Location Lt brachial Position Sitting Respiration 20 H Pulse 67 Pulse Source Monitor Intake Visit Reasons: HFrEF Charity Fundraiser Required: No Accompanied by: Daughter Allergies prednisone Allergy (Intermediate, Verified 07/21/25 12:56) Rash ciprofloxacin Adverse Reaction (Intermediate, Verified 07/21/25 12:56) Nausea/Vom/Diarrhea adhesive Adverse Reaction (Verified 07/21/25 12:56) Rash Medications ?Medication ?Instructions ?Recorded ?Confirmed ?Type levothyroxine 125 mcg tablet 125 mcg PO QODAY 11/28/23 08/07/25 History levothyroxine 112 mcg tablet 112 mcg PO QODAY 04/20/25 08/07/25 History apixaban 5 mg tablet (Eliquis) 5 mg PO BID 06/23/25 History citalopram 10 mg tablet 10 mg PO DAILY 06/23/2507/29 History cyclobenzaprine 10 mg tablet 10 mg PO DAILY PRN pain 0 06/23/25 08/07/25 History amiodarone 200 mg tablet 200 mg PO DAILY 30 days #30 tabs 07/21/25 08/07/25 Rx lisinopril 2.5 mg tablet 2.5 mg PO QDAY 30 days #30 t abs 08/07/25 08/07/25 Rx Ejection fraction %: 35 Have you fallen in the past year?: No PFSH Medical History Anxiety Osteoporosis Kidney stones Former smoker Atrial fibrillation Muscular dystrophy Paroxysmal atrial tachycardia Non-rheumatic mitral regurgitation Nonrheumatic mitral (valve) prolapse Paroxysmal atrial fibrillation History of kidney stones Left bundle branch block Cddqrxh-Etqso-Oxjbw disease Hypotension Depression Surgical History Hx of thyroidectomy History of appendectomy History of lithotripsy (~10/2017) Hx of cholecystectomy [...] servings: 2 ROS Const Const: Negative for fatigue or weakness Eyes Eyes: Negative for change in vision ENT ENT: Negative for dizziness or balance problems Cardio Chest Pain: No Palpitations: No Edema: None Resp Respiratory: Negative for SOB with activity, SOB at rest or SOB orthopnea\\SOB lying down GI GI: Negative nausea or heartburn Musc Musc: Negative for balance problems Neuro Neuro: Negative for dizziness, lightheadedness, near syncope, syncope or weakness Endo Endo: Negative for fatigue Supplemental Info Supplemental Information Diagnostics: Electrocardiogram Echocardiogram Stress Test Stress Test Nuclear Medicine Chest X-Ray Chest CTA Abdomen Ultrasound Abdomen/Pelvis CT Pulmonary: Pulmonary Function Test Past Visits: Cardiology Visit Today Assessment and Plan Assessment and Plan (1) Paroxysmal atrial fibrillation: Status: Chronic Comment: The patient has a long-standing history of atrial fibrillation (AF) with recurrence despite prior antiarrhythmic therapy (failed flecainide, intolerance to metoprolol) and a recent failed cardioversion. She is currently maintained onamiodarone and Eliquis for rhythm and stroke prevention, respectively. Holter monitoring in June 2025 confirmed persistent AF with a rapid ventricular response (average 104 bpm). The patient remains at high risk for thromboembolic events ([id number] = 5) and has a history of nonischemic cardiomyopathy and mitral regurgitation, both of which may contribute to AF burden and complicate management. The patient reports brief, self-limited episodes of palpitations and "pressure,"but no sustained symptomatic arrhythmias. There is no evidence of hemodynamic instability. She has a history of sleep apnea with poor CPAP tolerance, which delicia known risk factor for AF recurrence. Given her high stroke risk, continued anticoagulation is indicated. The risk- benefit of rhythm versus rate control is complicated by her reduced ejection fraction and intolerance to several antiarrhythmics. The patient does not meet criteria for a Watchman procedure if she is tolerating oral anticoagulation. Amiodarone remains the most viable option for rhythm control at this time. Plan: Diagnostics/Labs: Continue periodic EKG monitoring to assess rhythm status. Repeat echocardiogram in 3 months to reassess left ventricular function and atrial size. Consider sleep study if patient is willing, to reassess for treatable sleep apnea as a modifiable risk factor for AF recurrence. Continue amiodarone 200 mg daily for rhythm control, as tolerated. Continue Eliquis for anticoagulation given [id number] = 5 and absence of absolute contraindications. Monitor for bleeding, especially given history of diverticulosis. Maintain diltiazem for rate control as needed, monitoring for bradycardia or hypotension. (2) HFrEF (heart failure with reduced ejection fraction): Status: Acute Comment: The patient has experienced a significant decline in left ventricular ejection fraction (LVEF) from 60% (December 2023) to 35% (May 2025), with associated mildto moderate global hypokinesis. The etiology is likely multifactorial, includingpersistent AF with rapid ventricular response, mitral regurgitation, and possible contribution from hypertension and prior COVID infection. There is no evidence of ischemic etiology or prior myocardial infarction. The patient is at increased risk for sudden cardiac given LVEF =35%. However, as the decline in EF is recent and may be partially reversible with optimal medical and rhythm management, immediate device therapy (ICD) is deferred pending reassessment after 3 months of optimized therapy. Plan: Diagnostics/Labs: Repeat echocardiogram in 3 months to reassess LVEF and response to therapy. Monitor renal function and electrolytes periodically, especially with initiationof MARGOT inhibitor therapy. Therapeutics/Medications: Initiate low-dose lisinopril (2.5 mg nightly) to reduce afterload and support ventricular remodeling, as tolerated. Titrate as tolerated to target dose per heart failure guidelines. If patient cannot tolerate lisinopril due to orthostatic hypotension, dizziness, I recommended patient discontinue lisinopril. (3) Hypertension: Status: Acute Qualifiers: Hypertension type: unspecified Qualified Code(s): I10 - Essential (primary) hypertension Comment: The patient has a history of labile hypertension, with episodes of both elevatedand low blood pressure, complicated by orthostatic symptoms and underlying autonomic dysfunction (possible POTS, Aldeqou-Dakvw-Kxwtk disease). Blood pressure control is essential to reduce afterload and support ventricular function, but must be balanced against risk of symptomatic hypotension, particularly in the context of heart failure and anticoagulation. Plan: Diagnostics/Labs: Monitor blood pressure at home, including orthostatic measurements. Check renal function and electrolytes prior to and after initiation of MARGOT inhibitor. (4) Non-rheumatic mitral regurgitation: Status: Chronic Comment: The patient has a history of nonrheumatic mitral regurgitation, previously moderate (December 2023), now improved to mild (May 2025) on echocardiogram. Theimprovement may be related to changes in ventricular size and function, as well as rate/rhythm control of AF. The regurgitation is likely functional, secondary to left atrial and ventricular dilation, rather than primary leaflet pathology. There is currently no indication for surgical intervention, as the degree of regurgitation is mild and the patient is asymptomatic from a valvular standpoint. Ongoing management focuses on optimizing heart failure therapy and rhythm control to minimize further ventricular remodeling. Plan: Diagnostics/Labs: Repeat echocardiogram in 3 months to monitor mitral regurgitation severity and ventricular dimensions. Orders: Orders 12 Lead EKG performed by [facility] Today I47.1 - Supraventricular tachycardia, I48.0 - Paroxysmal atrial fibrillation, I50.20 - Unspecified systolic (congestive) heart failure Medications: New lisinopril 2.5 mg PO QDAY 30 tabs 11RF 30 days Plan Details Goals & Barriers: Goals Decrease spasm Decrease radiculopathy Improve ROM Decrease pain Barriers CMT DDD Follow Up: 1 Year Coding Level of Care Code Off vis,est,level 4 Diagnoses Paroxysmal atrial fibrillation I48.0 HFrEF (heart failure with reduced ejection fraction) I50.20 Hypertension, unspecified type I10 Hypertension type: unspecified Non-rheumatic mitral regurgitation I34.0 Coding Level of Care Code Off vis,est,level 4 Diagnoses Paroxysmal atrial fibrillation I48.0 HFrEF (heart failure with reduced ejection fraction) I50.20 Hypertension, unspecified type I10 Hypertension type: unspecified Non-rheumatic mitral regurgitation I34.0 Clinical Quality Measures Falls Risk Screening/Assistive Devices Have you fallen in the past year?: No Cardiac Ejection fraction %: 35 08/07/25 0945 <Electronically signed by Asim cool MD> Date _ Asim Ruiz MD Cosigner Signature: Date (if applicable) CC: ~ [facility] Work Phone: Reason for referral (narrative)No reason for referral information availableWThe [facility] Work Phone: Chief Complaint and Reason [...] and somatic dysfunction of thoracic region CMT (Euifjov-Pjmyx-Evzmj disease) DDD (degenerative disc disease), lumbar Back pain Segmental and somatic dysfunction of lumbar region Segmental and somatic dysfunction of pelvic region CMT (Scyyhoq-Gtjvm-Osega disease) DDD (degenerative disc disease), lumbar Back pain Segmental and somatic dysfunction of lumbar region Segmental and somatic dysfunction of pelvic region CMT (Uhkueko-Eocoj-Qpibg disease) DDD (degenerative disc disease), lumbar Chief [...] HYPERTENSION April 20, 2025 9:39 am S/P [facility] 04/20May 18, 2025 9:27 am Chief Complaint Admit Date V87.7XXA SOB ABD PAIN BACK PAIN March 12:26pm HYPERTENSION April 20, 2025 9:39 am S/P [facility] 04/20May 18, 2025 9:27 am PALPITATIONS June [...] HYPERTENSION April 20, 2025 9:39 am S/P [facility] 04/20May 18, 2025 9:27 am PALPITATIONS June 07, 2025 8: 02pm CHEST PAIN June 11, 2025 10 :00am Chief Complaint Admit Date V87.7XXA SOB ABD PAIN BACK PAIN March 12:26pm HYPERTENSION April 20, 2025 9:39 am S/P [facility] 04/20May 18, 2025 9:27 am PALPITATIONS June 07, 2025 8: 02pm CHEST PAIN June 11, 2025 10 :00am PAF; WITH RVR & CHEST PRESSURE June 232024 8:19pm Reason for Visit Admit Date Chest pain May 18, 2025 9:27 am Hypertension May 18, 2025 9:27 am Nonrheumatic mitral (valve) prolapse Apr 9:27am Paroxysmal atrial tachycardia May 18, 2025 9:27am Paroxysmal atrial fibrillation April 9:27am Adverse drug reaction June 23, 2025 8:19pm 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 June 23, 2025 8:19pm Rzawsxm-Ykfjf-Bzubx disease June 23, 2025 8:19pm Chest pain June 23, 2025 8: 19pm Muscular dystrophy June 23, 2025 8: 19pm Chief Complaint Admit Date V87.7XXA SOB ABD PAIN BACK PAIN March 12:26pm HYPERTENSION April 20, 2025 9:39 am S/P [facility] 04/20May 18, 2025 9:27 am PALPITATIONS June 07, 2025 8: 02pm CHEST PAIN June 11, 2025 10 :00am PAF; WITH RVR & CHEST PRESSURE June 232024 8:19pm PAF; WITH RVR & CHEST PRESSURE June 242024 11:40am PAF; WITH RVR & CHEST PRESSURE June 242024 3:12pm PAF; WITH RVR & CHEST PRESSURE June 242024 4:08pm PAF; WITH RVR & CHEST PRESSURE June 252024 4:00pm PAF; WITH RVR & CHEST PRESSURE June 262024 4:36pm PAF; WITH RVR & CHEST PRESSURE June 272024 4:19pm Reason for Visit Admit Date Chest pain May 18, 2025 9:27 am Hypertension May 18, 2025 9:27 am Nonrheumatic mitral (valve) prolapse Apr 9:27am Paroxysmal atrial tachycardia May 18, 2025 9:27am Paroxysmal atrial fibrillation April 9:27am Adverse drug reaction June 24, 2025 3:12pm 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 June 24, 2025 3:12pm Mxsmaxh-Gydjq-Flwvz disease June 24, 2025 3:12pm Chest pain June 24, 2025 3: 12pm Muscular dystrophy June 24, 2025 3: 12pm Overweight (BMI 25.0-29.9) June 24, 2025 3:12pm CMT (Znyvspg-Tiafa-Yszqn disease) June 24, 2025 3:12pm DDD (degenerative disc disease), lumbar June 24, 2025 3:12pm Hypothyroidism June 24, 2025 3: 12pm Chief Complaint Admit Date V87.7XXA SOB ABD PAIN BACK PAIN March 12:26pm HYPERTENSION April 20, 2025 9:39 am S/P [facility] 04/20May 18, 2025 9:27 am PALPITATIONS June 07, 2025 8: 02pm CHEST PAIN June 11, 2025 10 :00am CHEST PAIN June 11, 2025 10 :56am PAF; WITH RVR & CHEST PRESSURE June 232024 8:19pm PAF; WITH RVR & CHEST PRESSURE June 242024 11:40am PAF; WITH RVR & CHEST PRESSURE June 242024 3:12pm PAF; WITH RVR & CHEST PRESSURE June 242024 4:08pm PAF; WITH RVR & CHEST PRESSURE June 252024 4:00pm PAF; WITH RVR & CHEST PRESSURE June 262024 4:36pm PAF; WITH RVR & CHEST PRESSURE June 272024 4:19pm PAF; WITH RVR & CHEST PRESSURE June 282024 2:48pm 2 W FU July 03, 2025 1:51pm Reason for Visit Admit Date Chest pain May 18, 2025 9:27 am Hypertension May 18, 2025 9:27 am Nonrheumatic mitral (valve) prolapse Apr 9:27am Paroxysmal atrial tachycardia May 18, 2025 9:27am Paroxysmal atrial fibrillation April 9:27am Adverse drug reaction June 24, 2025 3:12pm 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 June 24, 2025 3:12pm Rtuqzda-Xcpcg-Frbgr disease June 24, 2025 3:12pm Chest pain June 24, 2025 3: 12pm Muscular dystrophy June 24, 2025 3: 12pm Overweight (BMI 25.0-29.9) June 24, 2025 3:12pm CMT (Beutwsa-Boecj-Atcan disease) June 24, 2025 3:12pm DDD (degenerative disc disease), lumbar June 24, 2025 3:12pm Hypothyroidism June 24, 2025 3: 12pm Chest pain July 03, 2025 1:51pm Hypertension July 03, 2025 1:51pm Nonrheumatic mitral (valve) prolapse Sep tem2024 1:51pm Paroxysmal atrial tachycardia July 03, 2025 1:51pm Paroxysmal atrial fibrillation July 03, 2025 1:51pm Chief Complaint Admit Date V87.7XXA SOB ABD PAIN BACK PAIN March 12:26pm HYPERTENSION April 20, 2025 9:39 am S/P [facility] 04/20May 18, 2025 9:27 am PALPITATIONS June 07, 2025 8: 02pm CHEST PAIN June 11, 2025 10 :00am CHEST PAIN June 11, 2025 10 :56am PAF; WITH RVR & CHEST PRESSURE June 232024 8:19pm PAF; WITH RVR & CHEST PRESSURE June 242024 11:40am PAF; WITH RVR & CHEST PRESSURE June 242024 3:12pm PAF; WITH RVR & CHEST PRESSURE June 242024 4:08pm PAF; WITH RVR & CHEST PRESSURE June 252024 4:00pm PAF; WITH RVR & CHEST PRESSURE June 262024 4:36pm PAF; WITH RVR & CHEST PRESSURE June 272024 4:19pm PAF; WITH RVR & CHEST PRESSURE June 282024 2:48pm 2 W FU July 03, 2025 1:51pm atrial fibrillation July 16, 2025 1:21pm atrial fibrillation July 16, 2025 1:46pm 8 W FU July 21, 2025 12:52pm Reason for Visit Admit Date Chest pain May 18, 2025 9:27 am Hypertension May 18, 2025 9:27 am Nonrheumatic mitral (valve) prolapse Apr 9:27am Paroxysmal atrial tachycardia May 18, 2025 9:27am Paroxysmal atrial fibrillation April 9:27am Adverse drug reaction June 24, 2025 3:12pm Xonsigs-Kxrgo-Rwgsl disease June 24, 2025 3:12pm Chest pain June 24, 2025 3: 12pm Muscular dystrophy June 24, 2025 3: 12pm Overweight (BMI 25.0-29.9) June 24, 2025 3:12pm CMT (Nbrpkaz-Kglvk-Tlcmc disease) June 24, 2025 3:12pm DDD (degenerative disc disease), lumbar June 24, 2025 3:12pm Hypothyroidism June 24, 2025 3: 12pm 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 June 24, 2025 3:12pm HFrEF (heart failure with reduced ejecti on fraction) July 03, 2025 1:51pm Hypertension July 03, 2025 1:51pm Nonrheumatic mitral (valve) prolapse [facility] 2024 1:51pm Paroxysmal atrial tachycardia July 03, 2025 1:51pm Paroxysmal atrial fibrillation July 03, 2025 1:51pm HFrEF (heart failure with reduced ejecti on fraction) July 21, 2025 12:52pm Hypertension July 21, 2025 12:52pm [facility] 12[facility] Paroxysmal atrial tachycardia July 21, 2025 12:52pm Paroxysmal atrial fibrillation July 21, 2025 12:52pm Chief Complaint Admit Date V87.7XXA SOB ABD PAIN BACK PAIN March 12:26pm HYPERTENSION April 20, 2025 9:39 am S/P [facility] 04/20May 18, 2025 9:27 am PALPITATIONS June 07, 2025 8: 02pm CHEST PAIN June 11, 2025 10 :00am CHEST PAIN June 11, 2025 10 :56am PAF; WITH RVR & CHEST PRESSURE June 232024 8:19pm PAF; WITH RVR & CHEST PRESSURE June 242024 11:40am PAF; WITH RVR & CHEST PRESSURE June 242024 3:12pm PAF; WITH RVR & CHEST PRESSURE June 242024 4:08pm PAF; WITH RVR & CHEST PRESSURE June 252024 4:00pm PAF; WITH RVR & CHEST PRESSURE June 262024 4:36pm PAF; WITH RVR & CHEST PRESSURE June 272024 4:19pm PAF; WITH RVR & CHEST PRESSURE June 282024 2:48pm 2 W July 03, 2025 1:51pm atrial fibrillation July 16, 2025 1:21pm atrial fibrillation July 16, 2025 1:46pm 8 W July 21, 2025 12:52pm AFIB July 29, 2025 10 :34am Atrial fibrillation July 29, 2025 1: 19pm Atrial fibrillation July 29, 2025 1: 37pm Chief Complaint Admit Date HYPERTENSION April 20, 2025 9:39 am S/P [facility] 04/20May 18, 2025 9:27 am PALPITATIONS June 07, 2025 8: 02pm CHEST PAIN June 11, 2025 10 :00am CHEST PAIN June 11, 2025 10 :56am PAF; WITH RVR & CHEST PRESSURE June 232024 8:19pm PAF; WITH RVR & CHEST PRESSURE June 242024 11:40am PAF; WITH RVR & CHEST PRESSURE June 242024 3:12pm PAF; WITH RVR & CHEST PRESSURE June 242024 4:08pm PAF; WITH RVR & CHEST PRESSURE June 252024 4:00pm PAF; WITH RVR & CHEST PRESSURE June 262024 4:36pm PAF; WITH RVR & CHEST PRESSURE June 272024 4:19pm PAF; WITH RVR & CHEST PRESSURE June 282024 2:48pm 2 W July 03, 2025 1:51pm atrial fibrillation July 16, 2025 1:21pm atrial fibrillation July 16, 2025 1:46pm 8 W July 21, 2025 12:52pm AFIB July 29, 2025 10 :34am Atrial fibrillation July 29, 2025 1: 19pm Atrial fibrillation July 29, 2025 1: 37pm 1 W DCCV August 05, 2025 1: 36pm Chief Complaint Admit Date S/P [facility] 04/20May 18, 2025 9:27 am PALPITATIONS June 07, 2025 8: 02pm CHEST PAIN June 11, 2025 10 :00am CHEST PAIN June 11, 2025 10 :56am PAF; WITH RVR & CHEST PRESSURE June 232024 8:19pm PAF; WITH RVR & CHEST PRESSURE June 242024 11:40am PAF; WITH RVR & CHEST PRESSURE June 242024 3:12pm PAF; WITH RVR & CHEST PRESSURE June 242024 4:08pm PAF; WITH RVR & CHEST PRESSURE June 252024 4:00pm PAF; WITH RVR & CHEST PRESSURE June 262024 4:36pm PAF; WITH RVR & CHEST PRESSURE June 272024 4:19pm PAF; WITH RVR & CHEST PRESSURE June 282024 2:48pm 2 W July 03, 2025 1:51pm atrial fibrillation July 16, 2025 1:21pm atrial fibrillation July 16, 2025 1:46pm 8 W July 21, 2025 12:52pm AFIB July 29, 2025 10 :34am Atrial fibrillation July 29, 2025 1: 19pm Atrial fibrillation July 29, 2025 1: 37pm 1 W DCCV August 05, 2025 1: 36pm HFrEF August 07, 2025 8 :51am 4 W FU August 17, 2025 3 :00pm Reason for Visit Admit Date Chest pain May 18, 2025 9:27 am Hypertension May 18, 2025 9:27 am Nonrheumatic mitral (valve) prolapse Apr 9:27am Paroxysmal atrial tachycardia May 18, 2025 9:27am Paroxysmal atrial fibrillation April 9:27am Adverse drug reaction June 24, 2025 3:12pm Ojqkysz-Mveev-Blpqr disease June 24, 2025 3:12pm Chest pain June 24, 2025 3: 12pm Muscular dystrophy June 24, 2025 3: 12pm Overweight (BMI 25.0-29.9) June 24, 2025 3:12pm CMT (Rkmqgam-Msopu-Eqfrn disease) June 24, 2025 3:12pm DDD (degenerative disc disease), lumbar June 24, 2025 3:12pm Hypothyroidism June 24, 2025 3: 12pm 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 June 24, 2025 3:12pm HFrEF (heart failure with reduced ejecti on fraction) July 03, 2025 1:51pm Hypertension July 03, 2025 1:51pm Nonrheumatic mitral (valve) prolapse Sep 2024 1:51pm Paroxysmal atrial tachycardia July 03, 2025 1:51pm Paroxysmal atrial fibrillation July 03, 2025 1:51pm HFrEF (heart failure with reduced ejecti on fraction) July 21, 2025 12:52pm Hypertension July 21, 2025 12:52pm Nonrheumatic mitral (valve) prolapse Sep 2024 12:52pm Paroxysmal atrial tachycardia July 21, 2025 12:52pm Paroxysmal atrial fibrillation July 21, 2025 12:52pm HFrEF (heart failure with reduced ejecti on fraction) August 07, 2025 8:51am Hypertension August 07, 2025 8 :51am Non-rheumatic mitral regurgitation Octob 2024 8:51am Paroxysmal atrial fibrillation July 292024 8:51am HFrEF (heart failure with reduced ejecti on fraction) August 17, 2025 3:00pm Hypertension August 17, 2025 3 :00pm Nonrheumatic mitral (valve) prolapse Oct [email or web address] 3:00pm CHON (obstructive sleep apnea) August 172024 3:00pm Paroxysmal atrial tachycardia August 172024 3:00pm Paroxysmal atrial fibrillation July 302024 3:00pm Family History No Family History Records Found [...] Recorded Date/ Time Advance Directives Yes June 04, 2 014 6:42pm Living Will Yes July 09, 2020 5:18pm Power of Oil Dispenser Yes June 5:18pm Advance Directive Response Recorded Date/ Time Advance Directives Yes June 04, 014 5:42pm Living Will Yes July 09, 2020 4:18pm Power of Oil Dispenser Yes June 4:18pm Advance Directive Response Recorded Date/ Time Advance Directives Yes June 23, 2024 12:05pm Advance Directive Response Recorded Date/ Time Do you have a Healthcare Power of Oil Dispenser? No April 20, 2025 11:31am Advance Directives Yes June 23, 2024 12:05pm Advance Directive Response Recorded Date/ Time Do you have a Healthcare Power of Oil Dispenser? No April 20, 2025 11:31am Do you have a Healthcare Power of Oil Dispenser? Yes June 07, 2025 8:56pm Advance Directives Yes June 23, 2024 12:05pm Advance Directive Response Recorded Date/ Time Do you have a Healthcare Power of Oil Dispenser? No April 20, 2025 11:31am Do you have a Healthcare Power of Oil Dispenser? Yes June 07, 2025 8:56pm Do you have a Healthcare Power of Oil Dispenser? No June 23, 2025 2:25pm Advance Directives Yes June 23, 2024 12:05pm Advance Directive Response Recorded Date/ Time Do you have a Healthcare Pow er of Oil Dispenser? No April 20, 2025 11:31am Do you have a Healthcare Pow er of Oil Dispenser? Yes June 07, 2025 8:56pm Do you have a Healthcare Pow er of Oil Dispenser? Yes June 23, 2025 8:52pm Name of Medical Power of Oil Dispenser Alexey Ceja (Daughter) June 23, 2025 8:52pm Advance Directives Yes June 23, 2024 12:05pm Advance Directive Response Recorded Date/ Time Do you have a Healthcare Power of Oil Dispenser? No April 20, 2025 11:31am Do you have a Healthcare Power of Oil Dispenser? Yes June 07, 2025 8:56pm Do you have a Healthcare Power of Oil Dispenser? Yes June 23, 2025 8:52pm Name of Medical Power of Oil Dispenser Alexey Ceja (Daughter) June 23, 2025 8:52pm Advance Directives No June 11:49am Advance Directive Response Recorded Date/ Time Do you have a Healthcare Pow er of Oil Dispenser? No April 20, 2025 11:31am Do you have a Healthcare Pow er of Oil Dispenser? Yes June 07, 2025 8:56pm Do you have a Healthcare Pow er of Oil Dispenser? Yes June 23, 2025 8:52pm Name of Medical Power of Oil Dispenser Alexey Ceja (Daughter) June 23, 2025 8:52pm Advance Directives on File Yes Octob er 2024 11:13am Living Will Yes July 29 11:13am Do you have a Healthcare Pow er of Oil Dispenser? Yes July 29, 2025 11:13am Name of Medical Power of Oil Dispenser Roya Lordterson July 29, 2025 11:13am Advance Directives Yes July 29, 2025 11:13am Advance Directive Response Recorded Date/ Time Do you have a Healthcare Pow er of Oil Dispenser? Yes June 07, 2025 8:56pm Do you have a Healthcare Pow er of Oil Dispenser? Yes June 23, 2025 8:52pm Name of Medical Power of Oil Dispenser Alexey Ceja (Daughter) June 23, 2025 8:52pm Advance Directives on File Yes Octob er 2024 11:13am Living Will Yes July 29 11:13am Do you have a Healthcare Pow er of Oil Dispenser? Yes July 29, 2025 11:13am Name of Medical Power of Oil Dispenser Roya Jarretton July 29, 2025 11:13am Advance Directives Yes July 29, 2025 11:13am Advance Directive Response Recorded Date/ Time Do you have a Healthcare Pow er of Oil Dispenser? Yes June 07, 2025 7:56pm Do you have a Healthcare Pow er of Oil Dispenser? Yes June 23, 2025 7:52pm Name of Medical Power of Oil Dispenser Alexey Ceja (Daughter) June 23, 2025 7:52pm Advance Directives on File Yes Octob er 2024 10:13am Living Will Yes July 29 10:13am Do you have a Healthcare Pow er of Oil Dispenser? Yes July 29, 2025 10:13am Name of Medical Power of Oil Dispenser Roya Ceja July 29, 2025 10:13am Advance Directives Yes July 29, 2025 10:13am Summary Purpose Additional Source Comments Care Teams [...] Care Provider, Referring Provider Active Ophelia Diana INSTALLATION SUPERINTENDENT, INSTALLATION SUPERINTENDENT-C Attending Provider Active Team Status: Active Member [...] MD Primary Care Provider Active Ophelia Diana INSTALLATION SUPERINTENDENT, INSTALLATION SUPERINTENDENT-C Referring Provider, Other Provi indra Active Dr. Page Underwood MD Attending Provider Active Team Status: Active Member Role Status Dates Dr. Olivier Olmstead MD Primary Care Provider Active Ophelia Diana INSTALLATION SUPERINTENDENT, INSTALLATION SUPERINTENDENT-C Attending Provider Active Team Status: Inactive Member Role Status Dates Dr. Olivier Olmstead MD Primary Care Provider Active Ophelia Diana INSTALLATION SUPERINTENDENT, INSTALLATION SUPERINTENDENT-C Attending Provider, Referring P dustin Active Team [...] 2025 End: June 08, 2025 Dr. Carlos Schwiger , DO Referring Provider Active Start: June 07, [...] Provider Active S tart: June 11, 2025 Team Status: Active Member Role/Relationship Status Dates Dr. Olivier Olmstead MD Primary Care Provider Active Start: June 23, 2025 Dr. Dewayne Vázquez DO Emergency Provider Active Start: June 23, 2025 Dr. Garo Monzon DO Admit Provider Active Start: June 23, 2025 Dr. Garo Monzon DO Attending Provider Active Start: June 23, 2025 Team Status: Active Member Role/Relationship Status Dates Dr. Olivier Olmstead MD Primary Care Provider Active Start: June 23, 2025 Dr. Dewayne Vázquez DO Emergency Provider Active Start: June 23, 2025 Dr. Garo Monzon DO Admit Provider Active Start: June 23, 2025 Dr. Garo Monzon DO Attending Provider Active Start: June 23, 2025 Dr. Garo Monzon DO Other Provider Active Start: June 23, 2025 Dr. Tristen Lema MD Other Provider Active Start: June 23, 2025 Dr. Donnell Matamoros MD Other Provider Active Start : June 23, 2025 Dr. Lyn Lamas MD Other Provider Active Start : June 23, 2025 Dr. Viki Miranda MD Other Provider Active St art: June 23, 2025 Dr. Page Underwood MD Other Provider Active Star t: June 23, 2025 Dr. Killian Rivera MD Other Provider Active Sta rt: June 23, 2025 Dr. Ernesto Dudlye MD Other Provider Active Star t: June 23, 2025 Dr. Jose Gomez MD Other Provider Active Start : June 23, 2025 Dr. Garo Delcid DO Other Provider Active Sta rt: June 23, 2025 Dr. James Denis MD Other Provider Active Star t: June 23, 2025 Dr. Anastacio Scruggs MD Other Provider Active St art: June 23, 2025 Dr. Clayton Pearson MD Other Provider Active Start: June 23, 2025 Dr. Lily Andrade MD Other Provider Active Start : June 23, 2025 Dr. Asim Ruiz MD Other Provider Active S tart: June 23, 2025 Dr. Jose Mccall MD Other Provider Active Start: June 23, 2025 Jordon Saunders INSTALLATION SUPERINTENDENT, INSTALLATION SUPERINTENDENT-C Other Provider Active Start : June 23, 2025 Sondra Bhatia PA, PA Other Provider Active Start: June 23, 2025 JAGRUTI Hernandes Other Provider Active Start: June 23, 2025 Team Status: Active Member Role/Relationship Status Dates Dr. Olivier Olmstead MD Primary Care Provider Active Start: June 24, 2025 Dr. Dewayne Vázquez DO Emergency Provider Active Start: June 24, 2025 Dr. Garo Monzon DO Admit Provider Active Start: June 24, 2025 Dr. Garo Monzon DO Other Provider Active Start: June 24, 2025 Dr. Tristen Lema MD Other Provider Active Start: June 24, 2025 Dr. Donnell Matamoros MD Other Provider Active Start : June 24, 2025 Dr. Lyn Lamas MD Other Provider Active Start : June 24, 2025 Dr. Viki Miranda MD Other Provider Active St art: June 24, 2025 Dr. Page Underwood MD Other Provider Active Star t: June 24, 2025 Dr. Killian Rivera MD Other Provider Active Sta rt: June 24, 2025 Dr. Ernesto Dudley MD Other Provider Active Star t: June 24, 2025 Dr. Jose Gomez MD Other Provider Active Start : June 24, 2025 Dr. Garo Delcid DO Other Provider Active Sta rt: June 24, 2025 Dr. James Denis MD Other Provider Active Star t: June 24, 2025 Dr. Anastacio Scruggs MD Other Provider Active St art: June 24, 2025 Dr. Clayton Pearson MD Other Provider Active Start: June 24, 2025 Dr. Lily Andrade MD Other Provider Active Start : June 24, 2025 Dr. Asim Ruiz MD Other Provider Active S tart: June 24, 2025 Dr. Jose Mccall MD Other Provider Active Start: June 24, 2025 Jordon Saunders INSTALLATION SUPERINTENDENT, INSTALLATION SUPERINTENDENT-C Other Provider Active Start : June 24, 2025 Sondra Bhatia PA, PA Other Provider Active Start: June 24, 2025 JAGRUTI Hernandes Other Provider Active Start: June 24, 2025 Dr. Juan J Gerardo MD Attending Provider Active Start: June 24, 2025 Dr. Juan J Gerardo MD Other Provider Active Start: June 24, 2025 Team Status: Inactive Member Role/Relationship Status Dates Dr. Olivier Olmstead MD Primary Care Provider Active Start: June 24, 2025 End: June 28, 2025 Dr. Dewayne Vázquez DO Emergency Provider Active Start: June 24, 2025 End: June 28, 2025 Dr. Garo Monzon DO Admit Provider Active Start: June 24, 2025 End: June 28, 2025 Dr. Garo Monzon DO Other Provider Active Start: June 24, 2025 End: June 28, 2025 Dr. Tristen Lema MD Other Provider Active Start: June 24, 2025 End: June 28, 2025 Dr. Donnell Matamoros MD Other Provider Active Start : June 24, 2025 End: June 28, 2025 Dr. Lyn Lamas MD Other Provider Active Start : June 24, 2025 End: June 28, 2025 Dr. Viki Miranda MD Other Provider Active St art: June 24, 2025 End: June 28, 2025 Dr. Page Underwood MD Other Provider Active Star t: June 24, 2025 End: June 28, 2025 Dr. Killian Rivera MD Other Provider Active Sta rt: June 24, 2025 End: June 28, 2025 Dr. Ernesto Dudley MD Other Provider Active Star t: June 24, 2025 End: June 28, 2025 Dr. Jose Gomez MD Other Provider Active Start : June 24, 2025 End: June 28, 2025 Dr. Garo Delcid DO Other Provider Active Sta rt: June 24, 2025 End: June 28, 2025 Dr. James Denis MD Other Provider Active Star t: June 24, 2025 End: June 28, 2025 Dr. Anastacio Scruggs MD Other Provider Active St art: June 24, 2025 End: June 28, 2025 Dr. Clayton Pearson MD Other Provider Active Start: June 24, 2025 End: June 28, 2025 Dr. Lily Andrade MD Other Provider Active Start : June 24, 2025 End: June 28, 2025 Dr. Asim Ruiz MD Other Provider Active S tart: June 24, 2025 End: June 28, 2025 Dr. Jose Mccall MD Other Provider Active Start: June 24, 2025 End: June 28, 2025 Jordon Saunders INSTALLATION SUPERINTENDENT, INSTALLATION SUPERINTENDENT-C Other Provider Active Start : June 24, 2025 End: June 28, 2025 Sondra CHAND, PA Other Provider Active Start: June 24, 2025 End: June 28, 2025 JAGRUTI Hernandes Other Provider Active Start: June 24, 2025 End: June 28, 2025 Dr. Juan J Gerardo MD Attending Provider Active Start: June 24, 2025 End: June 28, 2025 Team Status: Active Member Role/Relationship Status Dates Dr. Olivier Olmstead MD Primary Care Provider Active Start: June 24, 2025 Dr. Dewayne Vázquez DO Emergency Provider Active Start: June 24, 2025 Dr. Garo Monzon DO Admit Provider Active Start: June 24, 2025 Dr. Garo Monzon DO Other Provider Active Start: June 24, 2025 Dr. Tristen Lema MD Other Provider Active Start: June 24, 2025 Dr. Donnell Matamoros MD Other Provider Active Start : June 24, 2025 Dr. Lyn Lamas MD Other Provider Active Start : June 24, 2025 Dr. Viki Miranda MD Other Provider Active St art: June 24, 2025 Dr. Page Underwood MD Other Provider Active Star t: June 24, 2025 Dr. Killian Rivera MD Other Provider Active Sta rt: June 24, 2025 Dr. Ernesto Dudley MD Other Provider Active Star t: June 24, 2025 Dr. Jose Gomez MD Other Provider Active Start : June 24, 2025 Dr. Garo Delcid DO Other Provider Active Sta rt: June 24, 2025 Dr. James Denis MD Attending Provider Active Start: June 24, 2025 Dr. James Denis MD Other Provider Active Star t: June 24, 2025 Dr. Anastacio Scruggs MD Other Provider Active St art: June 24, 2025 Dr. Clayton Pearson MD Other Provider Active Start: June 24, 2025 Dr. Lily Andrade MD Other Provider Active Start : June 24, 2025 Dr. Asim Ruiz MD Other Provider Active S tart: June 24, 2025 Dr. Jose Mccall MD Other Provider Active Start: June 24, 2025 Jordon Saunders INSTALLATION SUPERINTENDENT, INSTALLATION SUPERINTENDENT-C Other Provider Active Start : June 24, 2025 Sondra CHAND, PA Other Provider Active Start: June 24, 2025 JAGRUTI Hernandes Other Provider Active Start: June 24, 2025 Dr. Juan J Gerardo MD Other Provider Active Start: June 24, 2025 Team Status: Active Member Role/Relationship Status Dates Dr. Olivier Olmstead MD Primary Care Provider Active Start: June 25, 2025 Dr. Dewayne Vázquez DO Emergency Provider Active Start: June 25, 2025 Dr. Garo Monzon DO Admit Provider Active Start: June 25, 2025 Dr. Garo Monzon DO Other Provider Active Start: June 25, 2025 Dr. Tristen Lema MD Other Provider Active Start: June 25, 2025 Dr. Donnell Matamoros MD Other Provider Active Start : June 25, 2025 Dr. Lyn Lamas MD Other Provider Active Start : June 25, 2025 Dr. Viki Miranda MD Other Provider Active St art: June 25, 2025 Dr. Page Underwood MD Other Provider Active Star t: June 25, 2025 Dr. Killian Rivera MD Other Provider Active Sta rt: June 25, 2025 Dr. Ernesto Dudley MD Other Provider Active Star t: June 25, 2025 Dr. Jose Gomez MD Other Provider Active Start : June 25, 2025 Dr. Garo Delcid DO Other Provider Active Sta rt: June 25, 2025 Dr. James Denis MD Other Provider Active Star t: June 25, 2025 Dr. Anastacio Scruggs MD Other Provider Active St art: June 25, 2025 Dr. Clayton Pearson MD Other Provider Active Start: June 25, 2025 Dr. Lily Andrade MD Other Provider Active Start : June 25, 2025 Dr. Asim Ruiz MD Other Provider Active S tart: June 25, 2025 Dr. Jose Mccall MD Other Provider Active Start: June 25, 2025 Jordon Saunders NP, INSTALLATION SUPERINTENDENT-C Other Provider Active Start : June 25, 2025 Sondra CHAND, PA Other Provider Active Start: June 25, 2025 JAGRUTI Hernandes Other Provider Active Start: June 25, 2025 Dr. Juan J Gerardo MD Attending Provider Active Start: June 25, 2025 Dr. Juan J Gerardo MD Other Provider Active Start: June 25, 2025 Team Status: Active Member Role/Relationship Status Dates Dr. Olivier Olmstead MD Primary Care Provider Active Start: June 26, 2025 Dr. Dewayne Vázquez DO Emergency Provider Active Start: June 26, 2025 Dr. Garo Monzon DO Admit Provider Active Start: June 26, 2025 Dr. Garo Monzon DO Other Provider Active Start: June 26, 2025 Dr. Tristen Lema MD Other Provider Active Start: June 26, 2025 Dr. Donnell Matamoros MD Other Provider Active Start : June 26, 2025 Dr. Lyn Lamas MD Other Provider Active Start : June 26, 2025 Dr. Viki Miranda MD Other Provider Active St art: June 26, 2025 Dr. Page Underwood MD Other Provider Active Star t: June 26, 2025 Dr. Killian Rivera MD Other Provider Active Sta rt: June 26, 2025 Dr. Ernesto Dudley MD Other Provider Active Star t: June 26, 2025 Dr. Jose Gomez MD Other Provider Active Start : June 26, 2025 Dr. Garo Delcid DO Other Provider Active Sta rt: June 26, 2025 Dr. James Denis MD Other Provider Active Star t: June 26, 2025 Dr. Anastacio Scruggs MD Other Provider Active St art: June 26, 2025 Dr. Clayton Pearson MD Other Provider Active Start: June 26, 2025 Dr. Lily Andrade MD Other Provider Active Start : June 26, 2025 Dr. Asim Ruiz MD Other Provider Active S tart: June 26, 2025 Dr. Jose Mccall MD Other Provider Active Start: June 26, 2025 Jordon Saunders INSTALLATION SUPERINTENDENT, INSTALLATION SUPERINTENDENT-C Other Provider Active Start : June 26, 2025 Sondra CHAND, PA Other Provider Active Start: June 26, 2025 JAGRUTI Hernandes Other Provider Active Start: June 26, 2025 Dr. Juan J Gerardo MD Attending Provider Active Start: June 26, 2025 Dr. Juan J Gerardo MD Other Provider Active Start: June 26, 2025 Team Status: Active Member Role/Relationship Status Dates Dr. Olivier Olmstead MD Primary Care Provider Active Start: June 27, 2025 Dr. Dewayne Vázquez DO Emergency Provider Active Start: June 27, 2025 Dr. Garo Monzon DO Admit Provider Active Start: June 27, 2025 Dr. Garo Monzon DO Other Provider Active Start: June 27, 2025 Dr. Tristen Lema MD Other Provider Active Start: June 27, 2025 Dr. Donnell Matamoros MD Other Provider Active Start : June 27, 2025 Dr. Lyn Lamas MD Other Provider Active Start : June 27, 2025 Dr. Viki Miranda MD Other Provider Active St art: June 27, 2025 Dr. Page Underwood MD Other Provider Active Star t: June 27, 2025 Dr. Killian Rivera MD Other Provider Active Sta rt: June 27, 2025 Dr. Ernesto Dudley MD Other Provider Active Star t: June 27, 2025 Dr. Jose Gomez MD Other Provider Active Start : June 27, 2025 Dr. Garo Delcid DO Other Provider Active Sta rt: June 27, 2025 Dr. James Denis MD Other Provider Active Star t: June 27, 2025 Dr. Anastacio Scruggs MD Other Provider Active St art: June 27, 2025 Dr. Clayton Pearson MD Other Provider Active Start: June 27, 2025 Dr. Lily Andrade MD Other Provider Active Start : June 27, 2025 Dr. Asim Ruiz MD Other Provider Active S tart: June 27, 2025 Dr. Jose Mccall MD Other Provider Active Start: June 27, 2025 Jordon Saunders INSTALLATION SUPERINTENDENT, INSTALLATION SUPERINTENDENT-C Other Provider Active Start : June 27, 2025 Sondra CHAND, PA Other Provider Active Start: June 27, 2025 JAGRUTI Hernandes Other Provider Active Start: June 27, 2025 Dr. Juan J Gerardo MD Attending Provider Active Start: June 27, 2025 Dr. Juan J Gerardo MD Other Provider Active Start: June 27, 2025 Team Status: Active Member Role/Relationship Status Dates Dr. Olivier Olmstead MD Primary Care Provider Active Start: June 11, 2025 Dr. Jose Gomez MD Attending Provider Active S tart: June 11, 2025 JAGRUTI Hernandes Referring Provider Active St art: June 11, 2025 Team Status: Active Member Role/Relationship Status Dates Dr. Olivier Olmstead MD Primary Care Provider Active Start: June 23, 2025 Dr. Dewayne Vázquez DO Emergency Provider Active Start: June 23, 2025 Dr. Garo Monzon DO Admit Provider Active Start: June 23, 2025 Dr. Garo Monzon DO Attending Provider Active Start: June 23, 2025 Dr. Garo Monzon DO Other Provider Active Start: June 23, 2025 Dr. Tristen Lema MD Other Provider Active Start: June 23, 2025 Dr. Donnell Matamoros MD Other Provider Active Start : June 23, 2025 Dr. Lyn Lamas MD Other Provider Active Start : June 23, 2025 Dr. Viki Miranda MD Other Provider Active St art: June 23, 2025 Dr. Page Underwood MD Other Provider Active Star t: June 23, 2025 Dr. Killian Rivera MD Other Provider Active Sta rt: June 23, 2025 Dr. Ernesto Dudley MD Other Provider Active Star t: June 23, 2025 Dr. Jose Gomez MD Other Provider Active Start : June 23, 2025 Dr. Garo Delcid DO Other Provider Active Sta rt: June 23, 2025 Dr. James Denis MD Other Provider Active Star t: June 23, 2025 Dr. Anastacio Scruggs MD Other Provider Active St art: June 23, 2025 Dr. Clayton Pearson MD Other Provider Active Start: June 23, 2025 Dr. Lily Andrade MD Other Provider Active Start : June 23, 2025 Dr. Asim Ruiz MD Other Provider Active S tart: June 23, 2025 Dr. Jose Mccall MD Other Provider Active Start: June 23, 2025 Jordon Saunders INSTALLATION SUPERINTENDENT, INSTALLATION SUPERINTENDENT-C Other Provider Active Start : June 23, 2025 Sondra Bhatia PA, PA Other Provider Active Start: June 23, 2025 JAGRUTI Hernandes Other Provider Active Start: June 23, 2025 Team Status: Active Member Role/Relationship Status Dates Dr. Olivier Olmstead MD Primary Care Provider Active Start: June 24, 2025 Dr. Dewayne Vázquez DO Emergency Provider Active Start: June 24, 2025 Dr. Garo Monzon DO Admit Provider Active Start: June 24, 2025 Dr. Garo Monzon DO Other Provider Active Start: June 24, 2025 Dr. Tristen Lema MD Other Provider Active Start: June 24, 2025 Dr. Donnell Matamoros MD Other Provider Active Start : June 24, 2025 Dr. Lyn Lamas MD Other Provider Active Start : June 24, 2025 Dr. Viki Miranda MD Other Provider Active St art: June 24, 2025 Dr. Page Underwood MD Other Provider Active Star t: June 24, 2025 Dr. Killian Rivera MD Other Provider Active Sta rt: June 24, 2025 Dr. Ernesto Dudley MD Other Provider Active Star t: June 24, 2025 Dr. Jose Gomez MD Other Provider Active Start : June 24, 2025 Dr. Garo Delcid DO Other Provider Active Sta rt: June 24, 2025 Dr. James Denis MD Other Provider Active Star t: June 24, 2025 Dr. Anastacio Scruggs MD Other Provider Active St art: June 24, 2025 Dr. Clayton Pearson MD Other Provider Active Start: June 24, 2025 Dr. Lily Andrade MD Other Provider Active Start : June 24, 2025 Dr. Asim Ruiz MD Other Provider Active S tart: June 24, 2025 Dr. Jose Mccall MD Other Provider Active Start: June 24, 2025 Jordon Saunders INSTALLATION SUPERINTENDENT, INSTALLATION SUPERINTENDENT-C Other Provider Active Start : June 24, 2025 Sondra CHAND, PA Other Provider Active Start: June 24, 2025 JAGRUTI Hernandes Other Provider Active Start: June 24, 2025 Dr. Juan J Gerardo MD Attending Provider Active Start: June 24, 2025 Dr. Juan J Gerardo MD Other Provider Active Start: June 24, 2025 Team Status: Inactive Member Role/Relationship Status Dates Dr. Olivier Olmstead MD Primary Care Provider Active Start: June 24, 2025 End: June 28, 2025 Dr. Dewayne Vázquez DO Emergency Provider Active Start: June 24, 2025 End: June 28, 2025 Dr. Garo Monzon DO Admit Provider Active Start: June 24, 2025 End: June 28, 2025 Dr. Garo Monzon DO Other Provider Active Start: June 24, 2025 End: June 28, 2025 Dr. Tristen Lema MD Other Provider Active Start: June 24, 2025 End: June 28, 2025 Dr. Donnell Matamoros MD Other Provider Active Start : June 24, 2025 End: June 28, 2025 Dr. Lyn Lamas MD Other Provider Active Start : June 24, 2025 End: June 28, 2025 Dr. Viki Miranda MD Other Provider Active St art: June 24, 2025 End: June 28, 2025 Dr. Page Underwood MD Other Provider Active Star t: June 24, 2025 End: June 28, 2025 Dr. Killian Rivera MD Other Provider Active Sta rt: June 24, 2025 End: June 28, 2025 Dr. Ernesto Dudley MD Other Provider Active Star t: June 24, 2025 End: June 28, 2025 Dr. Jose Gomez MD Other Provider Active Start : June 24, 2025 End: June 28, 2025 Dr. Garo Delcid DO Other Provider Active Sta rt: June 24, 2025 End: June 28, 2025 Dr. James Denis MD Other Provider Active Star t: June 24, 2025 End: June 28, 2025 Dr. Anastacio Scruggs MD Other Provider Active St art: June 24, 2025 End: June 28, 2025 Dr. Clayton Pearson MD Other Provider Active Start: June 24, 2025 End: June 28, 2025 Dr. Lily Andrade MD Other Provider Active Start : June 24, 2025 End: June 28, 2025 Dr. Asim Ruiz MD Other Provider Active S tart: June 24, 2025 End: June 28, 2025 Dr. Jose Mccall MD Other Provider Active Start: June 24, 2025 End: June 28, 2025 Jordon Nieves Nicky INSTALLATION SUPERINTENDENT, INSTALLATION SUPERINTENDENT-C Other Provider Active Start : June 24, 2025 End: June 28, 2025 Sondra Bhatia PA, PA Other Provider Active Start: June 24, 2025 End: June 28, 2025 JAGRUTI Hernandes Other Provider Active Start: June 24, 2025 End: June 28, 2025 Dr. Juan J Gerardo MD Attending Provider Active Start: June 24, 2025 End: June 28, 2025 Team Status: Active Member Role/Relationship Status Dates Dr. Olivier Olmstead MD Primary Care Provider Active Start: June 24, 2025 Dr. Dewayne Vázquez DO Emergency Provider Active Start: June 24, 2025 Dr. Garo Monzon DO Admit Provider Active Start: June 24, 2025 Dr. Garo Monzon DO Other Provider Active Start: June 24, 2025 Dr. Tristen Lema MD Other Provider Active Start: June 24, 2025 Dr. Donnell Matamoros MD Other Provider Active Start : June 24, 2025 Dr. Lyn Lamas MD Other Provider Active Start : June 24, 2025 Dr. Viki Miranda MD Other Provider Active St art: June 24, 2025 Dr. Page Underwood MD Other Provider Active Star t: June 24, 2025 Dr. Killian Rivera MD Other Provider Active Sta rt: June 24, 2025 Dr. Ernesto Dudley MD Other Provider Active Star t: June 24, 2025 Dr. Jsoe Gomez MD Other Provider Active Start : June 24, 2025 Dr. Garo Delcid DO Other Provider Active Sta rt: June 24, 2025 Dr. James Denis MD Attending Provider Active Start: June 24, 2025 Dr. James Denis MD Other Provider Active Star t: June 24, 2025 Dr. Anastacio Scruggs MD Other Provider Active St art: June 24, 2025 Dr. Clayton Pearson MD Other Provider Active Start: June 24, 2025 Dr. Lily Andrade MD Other Provider Active Start : June 24, 2025 Dr. Asim Ruiz MD Other Provider Active S tart: June 24, 2025 Dr. Jose Mccall MD Other Provider Active Start: June 24, 2025 Jordon Saunders INSTALLATION SUPERINTENDENT, INSTALLATION SUPERINTENDENT-C Other Provider Active Start : June 24, 2025 Sondra Bhatia PA, PA Other Provider Active Start: June 24, 2025 JAGRUTI Hernandes Other Provider Active Start: June 24, 2025 Dr. Juan J Gerardo MD Other Provider Active Start: June 24, 2025 Team Status: Active Member Role/Relationship Status Dates Dr. Olivier Olmstead MD Primary Care Provider Active Start: June 25, 2025 Dr. Dewayne Vázquez DO Emergency Provider Active Start: June 25, 2025 Dr. Garo Monzon DO Admit Provider Active Start: June 25, 2025 Dr. Garo Monzon DO Other Provider Active Start: June 25, 2025 Dr. Tristen Lema MD Other Provider Active Start: June 25, 2025 Dr. Donnell Matamoros MD Other Provider Active Start : June 25, 2025 Dr. Lyn Lamas MD Other Provider Active Start : June 25, 2025 Dr. Viki Miranda MD Other Provider Active St art: June 25, 2025 Dr. Page Underwood MD Other Provider Active Star t: June 25, 2025 Dr. Killian Rivera MD Other Provider Active Sta rt: June 25, 2025 Dr. Ernesto Dudley MD Other Provider Active Star t: June 25, 2025 Dr. Jose Gomez MD Other Provider Active Start : June 25, 2025 Dr. Garo Delcid DO Other Provider Active Sta rt: June 25, 2025 Dr. James Denis MD Other Provider Active Star t: June 25, 2025 Dr. Anastacio Scruggs MD Other Provider Active St art: June 25, 2025 Dr. Clayton Pearson MD Other Provider Active Start: June 25, 2025 Dr. Lily Andrade MD Other Provider Active Start : June 25, 2025 Dr. Asim Ruiz MD Other Provider Active S tart: June 25, 2025 Dr. Jose Mccall MD Other Provider Active Start: June 25, 2025 Jordon Nieves Nicky INSTALLATION SUPERINTENDENT, INSTALLATION SUPERINTENDENT-C Other Provider Active Start : June 25, 2025 Sondra Bhatia PA, PA Other Provider Active Start: June 25, 2025 JAGRUTI Hernandes Other Provider Active Start: June 25, 2025 Dr. Juan J Gerardo MD Attending Provider Active Start: June 25, 2025 Dr. Juan J Geradro MD Other Provider Active Start: June 25, 2025 Team Status: Active Member Role/Relationship Status Dates Dr. Olivier Olmstead MD Primary Care Provider Active Start: June 26, 2025 Dr. Dewayne Vázquez DO Emergency Provider Active Start: June 26, 2025 Dr. Garo Monzon DO Admit Provider Active Start: June 26, 2025 Dr. Garo Monzon DO Other Provider Active Start: June 26, 2025 Dr. Tristen Lema MD Other Provider Active Start: June 26, 2025 Dr. Donnell Matamoros MD Other Provider Active Start : June 26, 2025 Dr. Lyn Lamas MD Other Provider Active Start : June 26, 2025 Dr. Viki Miranda MD Other Provider Active St art: June 26, 2025 Dr. Page Underwood MD Other Provider Active Star t: June 26, 2025 Dr. Killian Rivera MD Other Provider Active Sta rt: June 26, 2025 Dr. Ernesto Dudley MD Other Provider Active Star t: June 26, 2025 Dr. Jose Gomez MD Other Provider Active Start : June 26, 2025 Dr. Garo Delcid DO Other Provider Active Sta rt: June 26, 2025 Dr. James Denis MD Other Provider Active Star t: June 26, 2025 Dr. Anastacio Scruggs MD Other Provider Active St art: June 26, 2025 Dr. Clayton Pearson MD Other Provider Active Start: June 26, 2025 Dr. Lily Andrade MD Other Provider Active Start : June 26, 2025 Dr. Asim Ruiz MD Other Provider Active S tart: June 26, 2025 Dr. Jose Mccall MD Other Provider Active Start: June 26, 2025 Jordon Nieves Nicky INSTALLATION SUPERINTENDENT, INSTALLATION SUPERINTENDENT-C Other Provider Active Start : June 26, 2025 Sondra Bhatia PA, PA Other Provider Active Start: June 26, 2025 JAGRUTI Hernandes Other Provider Active Start: June 26, 2025 Dr. Juan J Gerardo MD Attending Provider Active Start: June 26, 2025 Dr. Juan J Gerardo MD Other Provider Active Start: June 26, 2025 Team Status: Active Member Role/Relationship Status Dates Dr. Olivier Olmstead MD Primary Care Provider Active Start: June 27, 2025 Dr. Dewayne Vázquez DO Emergency Provider Active Start: June 27, 2025 Dr. Garo Monzon DO Admit Provider Active Start: June 27, 2025 Dr. Garo Monzon DO Other Provider Active Start: June 27, 2025 Dr. Tristen Lema MD Other Provider Active Start: June 27, 2025 Dr. Donnell Matamoros MD Other Provider Active Start : June 27, 2025 Dr. Lyn Lamas MD Other Provider Active Start : June 27, 2025 Dr. Viki Miranda MD Other Provider Active St art: June 27, 2025 Dr. Page Underwood MD Other Provider Active Star t: June 27, 2025 Dr. Killian Rivera MD Other Provider Active Sta rt: June 27, 2025 Dr. Ernesto Dudley MD Other Provider Active Star t: June 27, 2025 Dr. Jose Gomez MD Other Provider Active Start : June 27, 2025 Dr. Garo Delcid DO Other Provider Active Sta rt: June 27, 2025 Dr. James Denis MD Other Provider Active Star t: June 27, 2025 Dr. Anastacio Scruggs MD Other Provider Active St art: June 27, 2025 Dr. Clayton Pearson MD Other Provider Active Start: June 27, 2025 Dr. Lily Andrade MD Other Provider Active Start : June 27, 2025 Dr. Asim Ruiz MD Other Provider Active S tart: June 27, 2025 Dr. Jose Mccall MD Other Provider Active Start: June 27, 2025 Jordon Nieves Nicky INSTALLATION SUPERINTENDENT, INSTALLATION SUPERINTENDENT-C Other Provider Active Start : June 27, 2025 Sondra Bhatia PA, PA Other Provider Active Start: June 27, 2025 JAGRUTI Hernandes Other Provider Active Start: June 27, 2025 Dr. Juan J Gerardo MD Attending Provider Active Start: June 27, 2025 Dr. Juan J Gerardo MD Other Provider Active Start: June 27, 2025 Team Status: Active Member Role/Relationship Status Dates Dr. Olivier Olmstead MD Primary Care Provider Active Start: June 28, 2025 Dr. Dewayne Vázquez , Emergency Provider Active Start: June 28, 2025 Dr. Garo Monzon DO Admit Provider Active Start: June 28, 2025 Dr. Garo Monzon DO Other Provider Active Start: June 28, 2025 Dr. Tristen Lema MD Other Provider Active Start: June 28, 2025 Dr. Donnell Matamoros MD Other Provider Active Start : June 28, 2025 Dr. Lyn Lamas MD Other Provider Active Start : June 28, 2025 Dr. Viki Miranda MD Other Provider Active St art: June 28, 2025 Dr. Page Underwood MD Other Provider Active Star t: June 28, 2025 Dr. Killian Rivera MD Other Provider Active Sta rt: June 28, 2025 Dr. Ernesto Dudley MD Other Provider Active Star t: June 28, 2025 Dr. Jose Gomez MD Other Provider Active Start : June 28, 2025 Dr. Garo Delcid DO Other Provider Active Sta rt: June 28, 2025 Dr. James Denis MD Other Provider Active Star t: June 28, 2025 Dr. Anastacio Scruggs MD Other Provider Active St art: June 28, 2025 Dr. Clayton Pearson MD Other Provider Active Start: June 28, 2025 Dr. Lily Andrade MD Other Provider Active Start : June 28, 2025 Dr. Asim Ruiz MD Other Provider Active S tart: June 28, 2025 Dr. Jose Mccall MD Other Provider Active Start: June 28, 2025 Jordon Nieves Nicky INSTALLATION SUPERINTENDENT, INSTALLATION SUPERINTENDENT-C Other Provider Active Start : June 28, 2025 Sondra Bhatia PA, PA Other Provider Active Start: June 28, 2025 JAGRUTI Hernandes Other Provider Active Start: June 28, 2025 Dr. Juan J Gerardo MD Attending Provider Active Start: June 28, 2025 Dr. Juan J Gerardo MD Other Provider Active Start: June 28, 2025 Team Status: Inactive Member Role/Relationship Status Dates Dr. Olivier Olmstead MD Primary Care Provider Active Start: July 03, 2025 End: July 03, 2025 Dr. Olivier Olmstead MD Referring Provider Active Start: July 03, 2025 End: July 03, 2025 JAGRUTI Hernandes Attending Provider Active St art: July 03, 2025 End: July 03, 2025 Team Status: Active Member Role/Relationship Status Dates Dr. Olivier Olmsteda MD Primary care physician Active Team Status: Inactive Member Role/Relationship Status Dates Dr. Olivier Olmstead MD Primary care physician Active Start: April 06, 2025 End: April 06, 2025 Dr. Olivier Olmstead MD Attending physician Active Start: April 06, 2025 End: April 06, 2025 Dr. Olivier Olmstead MD Referring Provider Active Start: April 06, 2025 End: April 06, 2025 Team Status: Inactive Member Role/Relationship Status Dates Dr. Olivier Olmstead MD Primary care physician Active Start: April 20, 2025 End: April 20, 2025 Dr. Dewayne Vázquez DO Attending physician Active Start: April 20, 2025 End: April 20, 2025 Dr. Dewayne Vázquez DO Emergency Department Physician A ctive Start: April 20, 2025 End: April 20, 2025 Team Status: Inactive Member Role/Relationship Status Dates Dr. Olivier Olmstead MD Primary care physician Active Start: May 18, 2025 End: May 18, 2025 Dr. Olivier Olmstead MD Referring Provider Active Start: May 18, 2025 End: May 18, 2025 JAGRUTI Hernandes Attending physician Active S tart: May 18, 2025 End: May 18, 2025 Team Status: Inactive Member Role/Relationship Status Dates Dr. Olivier Olmstead MD Primary care physician Active Start: June 02, 2025 End: June 02, 2025 Dr. Olivier Olmstead MD Attending physician Active Start: June 02, 2025 End: June 02, 2025 Dr. Olivier Olmstead MD Referring Provider Active Start: June 02, 2025 End: June 02, 2025 Team Status: Inactive Member Role/Relationship Status Dates Dr. Olivier Olmstead MD Primary care physician Active Start: June 07, 2025 End: June 08, 2025 Dr. Carlos Darnell DO Attending physician Active Start: June 07, 2025 End: June 08, 2025 Dr. Carlos Darnell DO Referring Provider Active Start: June 07, 2025 End: June 08, 2025 Dr. Carlos Darnell DO Emergency Department Physician Active Start: June 07, 2025 End: June 08, 2025 Team Status: Inactive Member Role/Relationship Status Dates Dr. Olivier Olmstead MD Primary care physician Active Start: June 11, 2025 End: June 11, 2025 JAGRUTI Hernandes Attending physician Active S tart: June 11, 2025 End: June 11, 2025 JAGRUTI Hernandes Referring Provider Active St art: June 11, 2025 End: June 11, 2025 Team Status: Active Member Role/Relationship Status Dates Dr. Olivier Olmstead MD Primary care physician Active Start: June 11, 2025 Dr. Jose Gomez MD Attending physician Active Start: June 11, 2025 Team Status: Active Member Role/Relationship Status Dates Dr. Olivier Olmstead MD Primary care physician Active Start: June 11, 2025 Dr. Jose Gomez MD Attending physician Active Start: June 11, 2025 JAGRUTI Hernandes Referring Provider Active St art: June 11, 2025 Team Status: Active Member Role/Relationship Status Dates Dr. Olivier Olmstead MD Primary care physician Active Start: June 23, 2025 Dr. Dewayne Vázquez DO Emergency Departme nt Physician Active Start: June 23, 2025 Dr. Garo Monzon , Admitting physician Active Start: June 23, 2025 Dr. Grao Monzon DO Attending physician Active Start: June 23, 2025 Dr. Garo Monzon , Nurse Practitioner Active Start: June 23, 2025 Dr. Tristen Lema MD Nurse Practitioner Active St art: June 23, 2025 Dr. Donnell Matamoros MD Nurse Practitioner Active S tart: June 23, 2025 Dr. Lyn Lamas MD Nurse Practitioner Active S tart: June 23, 2025 Dr. Viki Miranda MD Nurse Practitioner Active Start: June 23, 2025 Dr. Page Underwood MD Nurse Practitioner Active Start: June 23, 2025 Dr. Killian Rivera MD Nurse Practitioner Active Start: June 23, 2025 Dr. Ernesto Dudley MD Nurse Practitioner Active Start: June 23, 2025 Dr. Jose Gomez MD Nurse Practitioner Active S tart: June 23, 2025 Dr. Garo Delcid DO Nurse Practitioner Active Start: June 23, 2025 Dr. James Denis MD Nurse Practitioner Active Start: June 23, 2025 Dr. Anastacio Scruggs MD Nurse Practitioner Active Start: June 23, 2025 Dr. Clayton Pearson MD Nurse Practitioner Active Start: June 23, 2025 Dr. Lily Andrade MD Nurse Practitioner Active S tart: June 23, 2025 Dr. Asim Ruiz MD Nurse Practitioner Active Start: June 23, 2025 Dr. Jose Mccall MD Nurse Practitioner Active Start: June 23, 2025 Jordon Saunders INSTALLATION SUPERINTENDENT, INSTALLATION SUPERINTENDENT-C Nurse Practitioner Active S tart: June 23, 2025 Sondra Bhatia PA, PA Nurse Practitioner Active Start: June 23, 2025 JAGRUTI Hernandes Nurse Practitioner Active St art: June 23, 2025 Team Status: Active Member Role/Relationship Status Dates Dr. Olivier Olmstead MD Primary care physician Active Start: June 24, 2025 Dr. Dewayne Vázquez , Emergency Departme nt Physician Active Start: June 24, 2025 Dr. Garo Monzon DO Admitting physician Active Start: June 24, 2025 Dr. Garo Monzon DO Nurse Practitioner Active Start: June 24, 2025 Dr. Tristen Lema MD Nurse Practitioner Active St art: June 24, 2025 Dr. Donnell Matamoros MD Nurse Practitioner Active S tart: June 24, 2025 Dr. Lyn Lamas MD Nurse Practitioner Active S tart: June 24, 2025 Dr. Viki Miranda MD Nurse Practitioner Active Start: June 24, 2025 Dr. Page Underwood MD Nurse Practitioner Active Start: June 24, 2025 Dr. Killian Rivera MD Nurse Practitioner Active Start: June 24, 2025 Dr. Ernesto Dudley MD Nurse Practitioner Active Start: June 24, 2025 Dr. Jose Gomez MD Nurse Practitioner Active S tart: June 24, 2025 Dr. Garo Delcid DO Nurse Practitioner Active Start: June 24, 2025 Dr. James Denis MD Nurse Practitioner Active Start: June 24, 2025 Dr. Anastacio Scruggs MD Nurse Practitioner Active Start: June 24, 2025 Dr. Clayton Pearson MD Nurse Practitioner Active Start: June 24, 2025 Dr. Lily Andrade MD Nurse Practitioner Active S tart: June 24, 2025 Dr. Asim Ruiz MD Nurse Practitioner Active Start: June 24, 2025 Dr. Jose Mccall MD Nurse Practitioner Active Start: June 24, 2025 Jordon aSunders INSTALLATION SUPERINTENDENT, INSTALLATION SUPERINTENDENT-C Nurse Practitioner Active S tart: June 24, 2025 Sondra CHAND, PA Nurse Practitioner Active Start: June 24, 2025 JAGRUTI Hernandes Nurse Practitioner Active St art: June 24, 2025 Dr. Juan J Gerardo MD Attending physician Active Start: June 24, 2025 Dr. Juan J Gerardo MD Nurse Practitioner Active Start: June 24, 2025 Team Status: Inactive Member Role/Relationship Status Dates Dr. Olivier Olmstead MD Primary care physician Active Start: June 24, 2025 End: June 28, 2025 Dr. Dewayne Vázquez , Emergency Departme nt Physician Active Start: June 24, 2025 End: June 28, 2025 Dr. Garo Monzon DO Admitting physician Active Start: June 24, 2025 End: June 28, 2025 Dr. Garo Monzon , Nurse Practitioner Active Start: June 24, 2025 End: June 28, 2025 Dr. Tristen Lema MD Nurse Practitioner Active St art: June 24, 2025 End: June 28, 2025 Dr. Donnell Matamoros MD Nurse Practitioner Active S tart: June 24, 2025 End: June 28, 2025 Dr. Lyn Lamas MD Nurse Practitioner Active S tart: June 24, 2025 End: June 28, 2025 Dr. Viki Miranda MD Nurse Practitioner Active Start: June 24, 2025 End: June 28, 2025 Dr. Page Underwood MD Nurse Practitioner Active Start: June 24, 2025 End: June 28, 2025 Dr. Killian Rivera MD Nurse Practitioner Active Start: June 24, 2025 End: June 28, 2025 Dr. Ernesto Dudley MD Nurse Practitioner Active Start: June 24, 2025 End: June 28, 2025 Dr. Jose Gomez MD Nurse Practitioner Active S tart: June 24, 2025 End: June 28, 2025 Dr. Garo Delcid , Nurse Practitioner Active Start: June 24, 2025 End: June 28, 2025 Dr. James Denis MD Nurse Practitioner Active Start: June 24, 2025 End: June 28, 2025 Dr. Anastacio Scruggs MD Nurse Practitioner Active Start: June 24, 2025 End: June 28, 2025 Dr. Clayton Pearson MD Nurse Practitioner Active Start: June 24, 2025 End: June 28, 2025 Dr. Lily Andrade MD Nurse Practitioner Active S tart: June 24, 2025 End: June 28, 2025 Dr. Asim Ruiz MD Nurse Practitioner Active Start: June 24, 2025 End: June 28, 2025 Dr. Jose Mccall MD Nurse Practitioner Active Start: June 24, 2025 End: June 28, 2025 Jordon Saunders INSTALLATION SUPERINTENDENT, INSTALLATION SUPERINTENDENT-C Nurse Practitioner Active S tart: June 24, 2025 End: June 28, 2025 Sondra Bhatia PA, PA Nurse Practitioner Active Start: June 24, 2025 End: June 28, 2025 JAGRUTI Hernandes Nurse Practitioner Active St art: June 24, 2025 End: June 28, 2025 Dr. Juan J Gerardo MD Attending physician Active Start: June 24, 2025 End: June 28, 2025 Team Status: Active Member Role/Relationship Status Dates Dr. Olivier Olmstead MD Primary care physician Active Start: June 24, 2025 Dr. Dewayne Vázquez , DO Emergency Departme nt Physician Active Start: June 24, 2025 Dr. Garo Monzon , DO Admitting physician Active Start: June 24, 2025 Dr. Garo Monzon , DO Nurse Practitioner Active Start: June 24, 2025 Dr. Tristen Lema MD Nurse Practitioner Active St art: June 24, 2025 Dr. Donnell Matamoros MD Nurse Practitioner Active S tart: June 24, 2025 Dr. Lyn Lamas MD Nurse Practitioner Active S tart: June 24, 2025 Dr. Viki Miranda MD Nurse Practitioner Active Start: June 24, 2025 Dr. Page Underwood MD Nurse Practitioner Active Start: June 24, 2025 Dr. Killian Rivera MD Nurse Practitioner Active Start: June 24, 2025 Dr. Ernesto Dudley MD Nurse Practitioner Active Start: June 24, 2025 Dr. Jose Gomez MD Nurse Practitioner Active S tart: June 24, 2025 Dr. Garo Delcid DO Nurse Practitioner Active Start: June 24, 2025 Dr. James Denis MD Attending physician Active Start: June 24, 2025 Dr. James Denis MD Nurse Practitioner Active Start: June 24, 2025 Dr. Anastacio Scruggs MD Nurse Practitioner Active Start: June 24, 2025 Dr. Clayton Pearson MD Nurse Practitioner Active Start: June 24, 2025 Dr. Lily Andrade MD Nurse Practitioner Active S tart: June 24, 2025 Dr. Asim Ruiz MD Nurse Practitioner Active Start: June 24, 2025 Dr. Jose Mccall MD Nurse Practitioner Active Start: June 24, 2025 Jordon Saunders INSTALLATION SUPERINTENDENT, INSTALLATION SUPERINTENDENT-C Nurse Practitioner Active S tart: June 24, 2025 Sondra Bhatia PA, PA Nurse Practitioner Active Start: June 24, 2025 JAGRUTI Hernandes Nurse Practitioner Active St art: June 24, 2025 Dr. Juan J Gerardo MD Nurse Practitioner Active Start: June 24, 2025 Team Status: Active Member Role/Relationship Status Dates Dr. Olivier Olmstead MD Primary care physician Active Start: June 25, 2025 Dr. Dewayne Vázquez , DO Emergency Departme nt Physician Active Start: June 25, 2025 Dr. Garo Monzon , DO Admitting physician Active Start: June 25, 2025 Dr. Garo Monzon , DO Nurse Practitioner Active Start: June 25, 2025 Dr. Tristen Lema MD Nurse Practitioner Active St art: June 25, 2025 Dr. Donnell Matamoros MD Nurse Practitioner Active S tart: June 25, 2025 Dr. Lyn Lamas MD Nurse Practitioner Active S tart: June 25, 2025 Dr. Viki Miranda MD Nurse Practitioner Active Start: June 25, 2025 Dr. Page Underwood MD Nurse Practitioner Active Start: June 25, 2025 Dr. Killian Rivera MD Nurse Practitioner Active Start: June 25, 2025 Dr. Ernesto Dudley MD Nurse Practitioner Active Start: June 25, 2025 Dr. Jose Gomez MD Nurse Practitioner Active S tart: June 25, 2025 Dr. Garo Delcid , Nurse Practitioner Active Start: June 25, 2025 Dr. James Denis MD Nurse Practitioner Active Start: June 25, 2025 Dr. Anastacio Scruggs MD Nurse Practitioner Active Start: June 25, 2025 Dr. Clayton Pearson MD Nurse Practitioner Active Start: June 25, 2025 Dr. Lily Andrade MD Nurse Practitioner Active S tart: June 25, 2025 Dr. Asim Ruiz MD Nurse Practitioner Active Start: June 25, 2025 Dr. Jose Mccall MD Nurse Practitioner Active Start: June 25, 2025 Jordon Saunders INSTALLATION SUPERINTENDENT, INSTALLATION SUPERINTENDENT-C Nurse Practitioner Active S tart: June 25, 2025 Sondra CHAND, PA Nurse Practitioner Active Start: June 25, 2025 JAGRUTI Hernandes Nurse Practitioner Active St art: June 25, 2025 Dr. Juan J Gerardo MD Attending physician Active Start: June 25, 2025 Dr. Juan J Gerardo MD Nurse Practitioner Active Start: June 25, 2025 Team Status: Active Member Role/Relationship Status Dates Dr. Olivier Olmstead MD Primary care physician Active Start: June 26, 2025 Dr. Dewayne Vázquez , DO Emergency Departme nt Physician Active Start: June 26, 2025 Dr. Garo Monzon DO Admitting physician Active Start: June 26, 2025 Dr. Garo Monzon , Nurse Practitioner Active Start: June 26, 2025 Dr. Tristen Lema MD Nurse Practitioner Active St art: June 26, 2025 Dr. Donnell Matamoros MD Nurse Practitioner Active S tart: June 26, 2025 Dr. Lyn Lamas MD Nurse Practitioner Active S tart: June 26, 2025 Dr. Viki Miranda MD Nurse Practitioner Active Start: June 26, 2025 Dr. Page Underwood MD Nurse Practitioner Active Start: June 26, 2025 Dr. Killian Rivera MD Nurse Practitioner Active Start: June 26, 2025 Dr. Ernesto Dudley MD Nurse Practitioner Active Start: June 26, 2025 Dr. Jose Gomez MD Nurse Practitioner Active S tart: June 26, 2025 Dr. Garo Delcid DO Nurse Practitioner Active Start: June 26, 2025 Dr. James Denis MD Nurse Practitioner Active Start: June 26, 2025 Dr. Anastacio Scruggs MD Nurse Practitioner Active Start: June 26, 2025 Dr. Clayton Pearson MD Nurse Practitioner Active Start: June 26, 2025 Dr. Lily Andrade MD Nurse Practitioner Active S tart: June 26, 2025 Dr. Asim Ruiz MD Nurse Practitioner Active Start: June 26, 2025 Dr. Jose Mccall MD Nurse Practitioner Active Start: June 26, 2025 Jordon Saunders INSTALLATION SUPERINTENDENT, INSTALLATION SUPERINTENDENT-C Nurse Practitioner Active S tart: June 26, 2025 Sondra CHAND, PA Nurse Practitioner Active Start: June 26, 2025 JAGRUTI Hernandes Nurse Practitioner Active St art: June 26, 2025 Dr. Juan J Gerardo MD Attending physician Active Start: June 26, 2025 Dr. Juan J Gerardo MD Nurse Practitioner Active Start: June 26, 2025 Team Status: Active Member Role/Relationship Status Dates Dr. Olivier Olmstead MD Primary care physician Active Start: June 27, 2025 Dr. Dewayne Vázquez , Emergency Departme nt Physician Active Start: June 27, 2025 Dr. Garo Monzon DO Admitting physician Active Start: June 27, 2025 Dr. Garo Monzon DO Nurse Practitioner Active Start: June 27, 2025 Dr. Tristen Lema MD Nurse Practitioner Active St art: June 27, 2025 Dr. Donnell Matamoros MD Nurse Practitioner Active S tart: June 27, 2025 Dr. Lyn Lamas MD Nurse Practitioner Active S tart: June 27, 2025 Dr. Viki Miranda MD Nurse Practitioner Active Start: June 27, 2025 Dr. Page Underwood MD Nurse Practitioner Active Start: June 27, 2025 Dr. Killian Rivera MD Nurse Practitioner Active Start: June 27, 2025 Dr. Ernesto Dudley MD Nurse Practitioner Active Start: June 27, 2025 Dr. Jose Gomez MD Nurse Practitioner Active S tart: June 27, 2025 Dr. Garo Delcid DO Nurse Practitioner Active Start: June 27, 2025 Dr. James Denis MD Nurse Practitioner Active Start: June 27, 2025 Dr. Anastacio Scruggs MD Nurse Practitioner Active Start: June 27, 2025 Dr. Clayton Pearson MD Nurse Practitioner Active Start: June 27, 2025 Dr. Lily Andrade MD Nurse Practitioner Active S tart: June 27, 2025 Dr. Asim Ruiz MD Nurse Practitioner Active Start: June 27, 2025 Dr. Jose Mccall MD Nurse Practitioner Active Start: June 27, 2025 Jordon Saunders INSTALLATION SUPERINTENDENT, INSTALLATION SUPERINTENDENT-C Nurse Practitioner Active S tart: June 27, 2025 Sondra Bhatia PA, PA Nurse Practitioner Active Start: June 27, 2025 JAGRUTI Hernandes Nurse Practitioner Active St art: June 27, 2025 Dr. Juan J Gerardo MD Attending physician Active Start: June 27, 2025 Dr. Juan J Gerardo MD Nurse Practitioner Active Start: June 27, 2025 Team Status: Active Member Role/Relationship Status Dates Dr. Olivier Olmstead MD Primary care physician Active Start: June 28, 2025 Dr. Dewayne Vázquez , Emergency Departme nt Physician Active Start: June 28, 2025 Dr. Garo Monzon , Admitting physician Active Start: June 28, 2025 Dr. Garo Monzon , Nurse Practitioner Active Start: June 28, 2025 Dr. Tristen Lema MD Nurse Practitioner Active St art: June 28, 2025 Dr. Donnell Matamoros MD Nurse Practitioner Active S tart: June 28, 2025 Dr. Lyn Lamas MD Nurse Practitioner Active S tart: June 28, 2025 Dr. Viki Miranda MD Nurse Practitioner Active Start: June 28, 2025 Dr. Page Underwood MD Nurse Practitioner Active Start: June 28, 2025 Dr. Killian Rivera MD Nurse Practitioner Active Start: June 28, 2025 Dr. Ernesto Dudley MD Nurse Practitioner Active Start: June 28, 2025 Dr. Jose Gomez MD Nurse Practitioner Active S tart: June 28, 2025 Dr. Garo Delcid DO Nurse Practitioner Active Start: June 28, 2025 Dr. James Denis MD Nurse Practitioner Active Start: June 28, 2025 Dr. Anastacio Scruggs MD Nurse Practitioner Active Start: June 28, 2025 Dr. Clayton Pearson MD Nurse Practitioner Active Start: June 28, 2025 Dr. Lily Andrade MD Nurse Practitioner Active S tart: June 28, 2025 Dr. Asim Ruiz MD Nurse Practitioner Active Start: June 28, 2025 Dr. Jose Mccall MD Nurse Practitioner Active Start: June 28, 2025 Jordon Saunders INSTALLATION SUPERINTENDENT, INSTALLATION SUPERINTENDENT-C Nurse Practitioner Active S tart: June 28, 2025 Sondra Bhatia PA, PA Nurse Practitioner Active Start: June 28, 2025 JAGRUTI Hernandes Nurse Practitioner Active St art: June 28, 2025 Dr. Juan J Gerardo MD Attending physician Active Start: June 28, 2025 Dr. Juan J Gerardo MD Nurse Practitioner Active Start: June 28, 2025 Team Status: Inactive Member Role/Relationship Status Dates Dr. Olivier Olmstead MD Primary care physician Active Start: July 03, 2025 End: July 03, 2025 Dr. Olivier Olmstead MD Referring Provider Active Start: July 03, 2025 End: July 03, 2025 JAGRUTI Hernandes Attending physician Active S tart: July 03, 2025 End: July 03, 2025 Team Status: Inactive Member Role/Relationship Status Dates Dr. Olivier Olmstead MD Primary care physician Active Start: July 16, 2025 End: July 16, 2025 JAGRUTI Hernandes Attending physician Active S tart: July 16, 2025 End: July 16, 2025 JAGRUTI Hernandes Referring Provider Active St art: July 16, 2025 End: July 16, 2025 Team Status: Active Member Role/Relationship Status Dates Dr. Olivier Olmstead MD Primary care physician Active Start: July 16, 2025 Dr. Jose Gomez MD Attending physician Active Start: July 16, 2025 JAGRUTI Hernandes Referring Provider Active St art: July 16, 2025 Team Status: Inactive Member Role/Relationship Status Dates Dr. Olivier Olmstead MD Primary care physician Active Start: July 21, 2025 End: July 21, 2025 Dr. Olivier Olmstead MD Referring Provider Active Start: July 21, 2025 End: July 21, 2025 JAGRUTI Hernandes Attending physician Active S tart: July 21, 2025 End: July 21, 2025 Team Status: Inactive Member Role/Relationship Status Dates Dr. Olivier Olmstead MD Primary care physician Active Start: July 21, 2025 End: July 21, 2025 JAGRUTI Hernandes Attending physician Active S tart: July 21, 2025 End: July 21, 2025 Team Status: Active Member Role/Relationship Status Dates Dr. Olivier Olmstead MD Primary care physician Active Start: July 29, 2025 Dr. Anastacio Scruggs MD Attending physician Active Start: July 29, 2025 Dr. Anastacio Scruggs MD Referring Provider Active Start: July 29, 2025 Team Status: Active Member Role/Relationship Status Dates Dr. Olivier Olmstead MD Primary care physician Active Start: July 29, 2025 Dr. Anastacio Scruggs MD Attending physician Active Start: July 29, 2025 Dr. Anastacio Scruggs MD Referring Provider Active Start: July 29, 2025 Dr. Anastacio Scruggs MD Nurse Practitioner Active Start: July 29, 2025 Team Status: Active Member Role/Relationship Status Dates Dr. Olivier Olmstead MD Primary care physician Active Start: July 29, 2025 Dr. Anastacio Scruggs MD Referring Provider Active Start: July 29, 2025 Dr. Anastacio Scruggs MD Nurse Practitioner Active Start: July 29, 2025 Dr. Mario Marie DO Attending physician Active Start: July 29, 2025 Team Status: Inactive Member Role/Relationship Status Dates Dr. Olivier Olmstead MD Primary care physician Active Start: July 29, 2025 End: July 29, 2025 Dr. Anastacio Scruggs MD Attending physician Active Start: July 29, 2025 End: July 29, 2025 Dr. Anastacio Scruggs MD Referring Provider Active Start: July 29, 2025 End: July 29, 2025 Team Status: Inactive Member Role/Relationship Status Dates Dr. Olivier Olmstead MD Primary care physician Active Start: April 20, 2025 End: April 20, 2025 Dr. Dewayne Vázquez DO Attending physician Active Start: April 20, 2025 End: April 20, 2025 Dr. Dewayne Vázquez DO Emergency Department Physician A ctive Start: April 20, 2025 End: April 20, 2025 Team Status: Inactive Member Role/Relationship Status Dates Dr. Olivier Olmstead MD Primary care physician Active Start: May 18, 2025 End: May 18, 2025 Dr. Olivier Olmstead MD Referring Provider Active Start: May 18, 2025 End: May 18, 2025 JAGRUTI Hernandes Attending physician Active S tart: May 18, 2025 End: May 18, 2025 Team Status: Inactive Member Role/Relationship Status Dates Dr. Olivier Olmstead MD Primary care physician Active Start: June 02, 2025 End: June 02, 2025 Dr. Olivier Olmstead MD Attending physician Active Start: June 02, 2025 End: June 02, 2025 Dr. Olivier Olmstead MD Referring Provider Active Start: June 02, 2025 End: June 02, 2025 Team Status: Inactive Member Role/Relationship Status Dates Dr. Olivier Olmstead MD Primary care physician Active Start: June 07, 2025 End: June 08, 2025 Dr. Carlos Darnell DO Attending physician Active Start: June 07, 2025 End: June 08, 2025 Dr. Carlos Darnell DO Referring Provider Active Start: June 07, 2025 End: June 08, 2025 Dr. Carlos Darnell DO Emergency Department Physician Active Start: June 07, 2025 End: June 08, 2025 Team Status: Inactive Member Role/Relationship Status Dates Dr. Olivier Olmstead MD Primary care physician Active Start: June 11, 2025 End: June 11, 2025 JAGRUTI Hernandes Attending physician Active S tart: June 11, 2025 End: June 11, 2025 JAGRUTI Hernandes Referring Provider Active St art: June 11, 2025 End: June 11, 2025 Team Status: Active Member Role/Relationship Status Dates Dr. Olivier Olmstead MD Primary care physician Active Start: June 11, 2025 Dr. Jose Gomez MD Attending physician Active Start: June 11, 2025 Team Status: Active Member Role/Relationship Status Dates Dr. Olivier Olmstead MD Primary care physician Active Start: June 11, 2025 Dr. Jose Gomez MD Attending physician Active Start: June 11, 2025 JAGRUTI Hernandes Referring Provider Active St art: June 11, 2025 Team Status: Active Member Role/Relationship Status Dates Dr. Olivier Olmstead MD Primary care physician Active Start: June 23, 2025 Dr. Dewayne Vázquez DO Emergency Departme nt Physician Active Start: June 23, 2025 Dr. Garo Monzon DO Admitting physician Active Start: June 23, 2025 Dr. Garo Mnozon DO Attending physician Active Start: June 23, 2025 Dr. Garo Monzon , DO Nurse Practitioner Active Start: June 23, 2025 Dr. Tristen Lema MD Nurse Practitioner Active St art: June 23, 2025 Dr. Donnell Matamoros MD Nurse Practitioner Active S tart: June 23, 2025 Dr. Lyn Lamas MD Nurse Practitioner Active S tart: June 23, 2025 Dr. Viki Miranda MD Nurse Practitioner Active Start: June 23, 2025 Dr. Page Underwood MD Nurse Practitioner Active Start: June 23, 2025 Dr. Killian Rivera MD Nurse Practitioner Active Start: June 23, 2025 Dr. Ernesto Dudley MD Nurse Practitioner Active Start: June 23, 2025 Dr. Jose Gomez MD Nurse Practitioner Active S tart: June 23, 2025 Dr. Garo Delcid , Nurse Practitioner Active Start: June 23, 2025 Dr. James Denis MD Nurse Practitioner Active Start: June 23, 2025 Dr. Anastacio Scruggs MD Nurse Practitioner Active Start: June 23, 2025 Dr. Clayton Pearson MD Nurse Practitioner Active Start: June 23, 2025 Dr. Lily Andrade MD Nurse Practitioner Active S tart: June 23, 2025 Dr. Asim Ruiz MD Nurse Practitioner Active Start: June 23, 2025 Dr. Jose Mccall MD Nurse Practitioner Active Start: June 23, 2025 Jordon Saunders INSTALLATION SUPERINTENDENT, INSTALLATION SUPERINTENDENT-C Nurse Practitioner Active S tart: June 23, 2025 Sondra Bhatia PA, PA Nurse Practitioner Active Start: June 23, 2025 JAGRUTI Hernandes Nurse Practitioner Active St art: June 23, 2025 Team Status: Active Member Role/Relationship Status Dates Dr. Olivier Olmstead MD Primary care physician Active Start: June 24, 2025 Dr. Dewayne Vázquez , Emergency Departme nt Physician Active Start: June 24, 2025 Dr. Garo Monzon DO Admitting physician Active Start: June 24, 2025 Dr. Garo Monzon , Nurse Practitioner Active Start: June 24, 2025 Dr. Tristen Lema MD Nurse Practitioner Active St art: June 24, 2025 Dr. Donnell Matamoros MD Nurse Practitioner Active S tart: June 24, 2025 Dr. Lyn Lamas MD Nurse Practitioner Active S tart: June 24, 2025 Dr. Viki Miranda MD Nurse Practitioner Active Start: June 24, 2025 Dr. Page Underwood MD Nurse Practitioner Active Start: June 24, 2025 Dr. Killian Rivera MD Nurse Practitioner Active Start: June 24, 2025 Dr. Ernesto Dudley MD Nurse Practitioner Active Start: June 24, 2025 Dr. Jose Gomez MD Nurse Practitioner Active S tart: June 24, 2025 Dr. Garo Delcid DO Nurse Practitioner Active Start: June 24, 2025 Dr. James Denis MD Nurse Practitioner Active Start: June 24, 2025 Dr. Anastacio Scruggs MD Nurse Practitioner Active Start: June 24, 2025 Dr. Clayton Pearson MD Nurse Practitioner Active Start: June 24, 2025 Dr. Lily Andrade MD Nurse Practitioner Active S tart: June 24, 2025 Dr. Asim Ruiz MD Nurse Practitioner Active Start: June 24, 2025 Dr. Jose Mccall MD Nurse Practitioner Active Start: June 24, 2025 Jordon Saunders INSTALLATION SUPERINTENDENT, INSTALLATION SUPERINTENDENT-C Nurse Practitioner Active S tart: June 24, 2025 Sondra Bhatia PA, PA Nurse Practitioner Active Start: June 24, 2025 JAGRUTI Hernandes Nurse Practitioner Active St art: June 24, 2025 Dr. Juan J Gerardo MD Attending physician Active Start: June 24, 2025 Dr. Juan J Gerardo MD Nurse Practitioner Active Start: June 24, 2025 Team Status: Inactive Member Role/Relationship Status Dates Dr. Olivier Olmstead MD Primary care physician Active Start: June 24, 2025 End: June 28, 2025 Dr. Dewayne Vázquez , Emergency Departme nt Physician Active Start: June 24, 2025 End: June 28, 2025 Dr. Garo Monzon , Admitting physician Active Start: June 24, 2025 End: June 28, 2025 Dr. Garo Monzon DO Nurse Practitioner Active Start: June 24, 2025 End: June 28, 2025 Dr. Tristen Lema MD Nurse Practitioner Active St art: June 24, 2025 End: June 28, 2025 Dr. Donnell Matamoros MD Nurse Practitioner Active S tart: June 24, 2025 End: June 28, 2025 Dr. Lyn Lamas MD Nurse Practitioner Active S tart: June 24, 2025 End: June 28, 2025 Dr. Viki Miranda MD Nurse Practitioner Active Start: June 24, 2025 End: June 28, 2025 Dr. Page Underwood MD Nurse Practitioner Active Start: June 24, 2025 End: June 28, 2025 Dr. Killian Rivera MD Nurse Practitioner Active Start: June 24, 2025 End: June 28, 2025 Dr. Ernesto Dudley MD Nurse Practitioner Active Start: June 24, 2025 End: June 28, 2025 Dr. Jose Gomez MD Nurse Practitioner Active S tart: June 24, 2025 End: June 28, 2025 Dr. Garo Delcid , Nurse Practitioner Active Start: June 24, 2025 End: June 28, 2025 Dr. James Denis MD Nurse Practitioner Active Start: June 24, 2025 End: June 28, 2025 Dr. Anastacio Scruggs MD Nurse Practitioner Active Start: June 24, 2025 End: June 28, 2025 Dr. Clayton Pearson MD Nurse Practitioner Active Start: June 24, 2025 End: June 28, 2025 Dr. Lily Andrade MD Nurse Practitioner Active S tart: June 24, 2025 End: June 28, 2025 Dr. Asim Ruiz MD Nurse Practitioner Active Start: June 24, 2025 End: June 28, 2025 Dr. Jose Mccall MD Nurse Practitioner Active Start: June 24, 2025 End: June 28, 2025 Jordon Saunders INSTALLATION SUPERINTENDENT, INSTALLATION SUPERINTENDENT-C Nurse Practitioner Active S tart: June 24, 2025 End: June 28, 2025 Sondra Bhatia PA, PA Nurse Practitioner Active Start: June 24, 2025 End: June 28, 2025 JAGRUTI Hernandes Nurse Practitioner Active St art: June 24, 2025 End: June 28, 2025 Dr. Juan J Gerardo MD Attending physician Active Start: June 24, 2025 End: June 28, 2025 Team Status: Active Member Role/Relationship Status Dates Dr. Olivier Olmstead MD Primary care physician Active Start: June 24, 2025 Dr. Dewayne Vázquez , DO Emergency Departme nt Physician Active Start: June 24, 2025 Dr. Garo Monzon , DO Admitting physician Active Start: June 24, 2025 Dr. Garo Monzon , Nurse Practitioner Active Start: June 24, 2025 Dr. Tristen Lema MD Nurse Practitioner Active St art: June 24, 2025 Dr. Donnell Matamoros MD Nurse Practitioner Active S tart: June 24, 2025 Dr. Lyn Lamas MD Nurse Practitioner Active S tart: June 24, 2025 Dr. Viki Miranda MD Nurse Practitioner Active Start: June 24, 2025 Dr. Page Underwood MD Nurse Practitioner Active Start: June 24, 2025 Dr. Killian Rivera MD Nurse Practitioner Active Start: June 24, 2025 Dr. Ernesto Dudley MD Nurse Practitioner Active Start: June 24, 2025 Dr. Jose Gomez MD Nurse Practitioner Active S tart: June 24, 2025 Dr. Garo Delcid DO Nurse Practitioner Active Start: June 24, 2025 Dr. James Denis MD Attending physician Active Start: June 24, 2025 Dr. James Denis MD Nurse Practitioner Active Start: June 24, 2025 Dr. Anatsacio Scruggs MD Nurse Practitioner Active Start: June 24, 2025 Dr. Clayton Pearson MD Nurse Practitioner Active Start: June 24, 2025 Dr. Lily Andrade MD Nurse Practitioner Active S tart: June 24, 2025 Dr. Asim Ruiz MD Nurse Practitioner Active Start: June 24, 2025 Dr. Jose Mccall MD Nurse Practitioner Active Start: June 24, 2025 Jordon Saunders INSTALLATION SUPERINTENDENT, INSTALLATION SUPERINTENDENT-C Nurse Practitioner Active S tart: June 24, 2025 Sondra Bhatia PA, PA Nurse Practitioner Active Start: June 24, 2025 JAGRUTI Hernandes Nurse Practitioner Active St art: June 24, 2025 Dr. Juan J Gerardo MD Nurse Practitioner Active Start: June 24, 2025 Team Status: Active Member Role/Relationship Status Dates Dr. Olivier Olmstead MD Primary care physician Active Start: June 25, 2025 Dr. Dewayne Vázquez , DO Emergency Departme nt Physician Active Start: June 25, 2025 Dr. Garo Monzon , DO Admitting physician Active Start: June 25, 2025 Dr. Garo Monzon , Nurse Practitioner Active Start: June 25, 2025 Dr. Tristen Lema MD Nurse Practitioner Active St art: June 25, 2025 Dr. Donnell Matamoros MD Nurse Practitioner Active S tart: June 25, 2025 Dr. Lyn Lamas MD Nurse Practitioner Active S tart: June 25, 2025 Dr. Viki Miranda MD Nurse Practitioner Active Start: June 25, 2025 Dr. Page Underwood MD Nurse Practitioner Active Start: June 25, 2025 Dr. Killian Rivera MD Nurse Practitioner Active Start: June 25, 2025 Dr. Ernesto Dudley MD Nurse Practitioner Active Start: June 25, 2025 Dr. Jose Gomez MD Nurse Practitioner Active S tart: June 25, 2025 Dr. Garo Delcid DO Nurse Practitioner Active Start: June 25, 2025 Dr. James Denis MD Nurse Practitioner Active Start: June 25, 2025 Dr. Anastacio Scruggs MD Nurse Practitioner Active Start: June 25, 2025 Dr. Clayton Pearson MD Nurse Practitioner Active Start: June 25, 2025 Dr. Lily Andrade MD Nurse Practitioner Active S tart: June 25, 2025 Dr. Asim Ruiz MD Nurse Practitioner Active Start: June 25, 2025 Dr. Jose Mccall MD Nurse Practitioner Active Start: June 25, 2025 Jordon Saunders INSTALLATION SUPERINTENDENT, INSTALLATION SUPERINTENDENT-C Nurse Practitioner Active S tart: June 25, 2025 Sondra Bhatia PA, PA Nurse Practitioner Active Start: June 25, 2025 JAGRUTI Hernandes Nurse Practitioner Active St art: June 25, 2025 Dr. Juan J Gerardo MD Attending physician Active Start: June 25, 2025 Dr. Juan J Gerardo MD Nurse Practitioner Active Start: June 25, 2025 Team Status: Active Member Role/Relationship Status Dates Dr. Olivier Olmstead MD Primary care physician Active Start: June 26, 2025 Dr. Dewayne Vázquez , DO Emergency Departme nt Physician Active Start: June 26, 2025 Dr. Garo Monzon , DO Admitting physician Active Start: June 26, 2025 Dr. Garo Monzon , Nurse Practitioner Active Start: June 26, 2025 Dr. Tristen Lema MD Nurse Practitioner Active St art: June 26, 2025 Dr. Donnell Matamoros MD Nurse Practitioner Active S tart: June 26, 2025 Dr. Lyn Lamas MD Nurse Practitioner Active S tart: June 26, 2025 Dr. Viki Miranda MD Nurse Practitioner Active Start: June 26, 2025 Dr. Page Underwood MD Nurse Practitioner Active Start: June 26, 2025 Dr. Killian Rivera MD Nurse Practitioner Active Start: June 26, 2025 Dr. Ernesto Dudley MD Nurse Practitioner Active Start: June 26, 2025 Dr. Jose Gomez MD Nurse Practitioner Active S tart: June 26, 2025 Dr. Garo Delcid DO Nurse Practitioner Active Start: June 26, 2025 Dr. James Denis MD Nurse Practitioner Active Start: June 26, 2025 Dr. Anastacio Scruggs MD Nurse Practitioner Active Start: June 26, 2025 Dr. Clayton Pearson MD Nurse Practitioner Active Start: June 26, 2025 Dr. Lily Andrade MD Nurse Practitioner Active S tart: June 26, 2025 Dr. Asim Ruiz MD Nurse Practitioner Active Start: June 26, 2025 Dr. Jose Mccall MD Nurse Practitioner Active Start: June 26, 2025 Jordon Saunders INSTALLATION SUPERINTENDENT, INSTALLATION SUPERINTENDENT-C Nurse Practitioner Active S tart: June 26, 2025 Sondra CHAND, PA Nurse Practitioner Active Start: June 26, 2025 JAGRUTI Hernandes Nurse Practitioner Active St art: June 26, 2025 Dr. Juan J Gerardo MD Attending physician Active Start: June 26, 2025 Dr. Juan J Gerardo MD Nurse Practitioner Active Start: June 26, 2025 Team Status: Active Member Role/Relationship Status Dates Dr. Olivier Olmstead MD Primary care physician Active Start: June 27, 2025 Dr. Dewayne Vázquez , DO Emergency Departme nt Physician Active Start: June 27, 2025 Dr. Garo Monzon , DO Admitting physician Active Start: June 27, 2025 Dr. Garo Monzon , Nurse Practitioner Active Start: June 27, 2025 Dr. Tristen Lema MD Nurse Practitioner Active St art: June 27, 2025 Dr. Donnell Matamoros MD Nurse Practitioner Active S tart: June 27, 2025 Dr. Lyn Lamas MD Nurse Practitioner Active S tart: June 27, 2025 Dr. Viki Miranda MD Nurse Practitioner Active Start: June 27, 2025 Dr. Page Underwood MD Nurse Practitioner Active Start: June 27, 2025 Dr. Killian Rivera MD Nurse Practitioner Active Start: June 27, 2025 Dr. Ernesto Dudley MD Nurse Practitioner Active Start: June 27, 2025 Dr. Jose Gomez MD Nurse Practitioner Active S tart: June 27, 2025 Dr. Garo Delcid DO Nurse Practitioner Active Start: June 27, 2025 Dr. James Denis MD Nurse Practitioner Active Start: June 27, 2025 Dr. Anastacio Scruggs MD Nurse Practitioner Active Start: June 27, 2025 Dr. Clayton Pearson MD Nurse Practitioner Active Start: June 27, 2025 Dr. Lily Andrade MD Nurse Practitioner Active S tart: June 27, 2025 Dr. Asim Ruiz MD Nurse Practitioner Active Start: June 27, 2025 Dr. Jose Mccall MD Nurse Practitioner Active Start: June 27, 2025 Jordon Saunders INSTALLATION SUPERINTENDENT, INSTALLATION SUPERINTENDENT-C Nurse Practitioner Active S tart: June 27, 2025 Sondra CHAND, PA Nurse Practitioner Active Start: June 27, 2025 JAGRUTI Hernandes Nurse Practitioner Active St art: June 27, 2025 Dr. Juan J Gerardo MD Attending physician Active Start: June 27, 2025 Dr. Juan J Gerardo MD Nurse Practitioner Active Start: June 27, 2025 Team Status: Active Member Role/Relationship Status Dates Dr. Olivier Olmstead MD Primary care physician Active Start: June 28, 2025 Dr. Dewayne Vázquez DO Emergency Departme nt Physician Active Start: June 28, 2025 Dr. Garo Monzon DO Admitting physician Active Start: June 28, 2025 Dr. Garo Monzon , Nurse Practitioner Active Start: June 28, 2025 Dr. Tristen Lema MD Nurse Practitioner Active St art: June 28, 2025 Dr. Donnell Matamoros MD Nurse Practitioner Active S tart: June 28, 2025 Dr. Lyn Lamas MD Nurse Practitioner Active S tart: June 28, 2025 Dr. Viki Miranda MD Nurse Practitioner Active Start: June 28, 2025 Dr. Page Underwood MD Nurse Practitioner Active Start: June 28, 2025 Dr. Killian Rivera MD Nurse Practitioner Active Start: June 28, 2025 Dr. Ernesto Dudley MD Nurse Practitioner Active Start: June 28, 2025 Dr. Jose Gomez MD Nurse Practitioner Active S tart: June 28, 2025 Dr. Garo Delcid DO Nurse Practitioner Active Start: June 28, 2025 Dr. James Denis MD Nurse Practitioner Active Start: June 28, 2025 Dr. Anastacio Scruggs MD Nurse Practitioner Active Start: June 28, 2025 Dr. Clayton Pearson MD Nurse Practitioner Active Start: June 28, 2025 Dr. Lily Andrade MD Nurse Practitioner Active S tart: June 28, 2025 Dr. Asim Ruiz MD Nurse Practitioner Active Start: June 28, 2025 Dr. Jose Mccall MD Nurse Practitioner Active Start: June 28, 2025 Jordon Saunders INSTALLATION SUPERINTENDENT, INSTALLATION SUPERINTENDENT-C Nurse Practitioner Active S tart: June 28, 2025 Sondra CHAND, PA Nurse Practitioner Active Start: June 28, 2025 JAGRUTI Hernandes Nurse Practitioner Active St art: June 28, 2025 Dr. Juan J Gerardo MD Attending physician Active Start: June 28, 2025 Dr. Juan J Gerardo MD Nurse Practitioner Active Start: June 28, 2025 Team Status: Inactive Member Role/Relationship Status Dates Dr. Olivier Olmstead MD Primary care physician Active Start: July 03, 2025 End: July 03, 2025 Dr. Olivier Olmstead MD Referring Provider Active Start: July 03, 2025 End: July 03, 2025 JAGRUTI Hernandes Attending physician Active S tart: July 03, 2025 End: July 03, 2025 Team Status: Inactive Member Role/Relationship Status Dates Dr. Olivier Olmstead MD Primary care physician Active Start: July 16, 2025 End: July 16, 2025 JAGRUTI Hernandes Attending physician Active S tart: July 16, 2025 End: July 16, 2025 JAGRUTI Hernandes Referring Provider Active St art: July 16, 2025 End: July 16, 2025 Team Status: Active Member Role/Relationship Status Dates Dr. Olivier Olmstead MD Primary care physician Active Start: July 16, 2025 Dr. Jose Gomez MD Attending physician Active Start: July 16, 2025 JAGRUTI Hernandes Referring Provider Active St art: July 16, 2025 Team Status: Inactive Member Role/Relationship Status Dates Dr. Olivier Olmstead MD Primary care physician Active Start: July 21, 2025 End: July 21, 2025 Dr. Olivier Olmstead MD Referring Provider Active Start: July 21, 2025 End: July 21, 2025 JAGRUTI Hernandes Attending physician Active S tart: July 21, 2025 End: July 21, 2025 Team Status: Inactive Member Role/Relationship Status Dates Dr. Olivier Olmstead MD Primary care physician Active Start: July 21, 2025 End: July 21, 2025 JAGRUTI Hernandes Attending physician Active S tart: July 21, 2025 End: July 21, 2025 Team Status: Inactive Member Role/Relationship Status Dates Dr. Olivier Olmstead MD Primary care physician Active Start: July 29, 2025 End: July 29, 2025 Dr. Anastacio Scruggs MD Attending physician Active Start: July 29, 2025 End: July 29, 2025 Dr. Anastacio Scruggs MD Referring Provider Active Start: July 29, 2025 End: July 29, 2025 Team Status: Active Member Role/Relationship Status Dates Dr. Olivier Olmstead MD Primary care physician Active Start: July 29, 2025 Dr. Anastacio Scruggs MD Attending physician Active Start: July 29, 2025 Dr. Anastacio Scruggs MD Referring Provider Active Start: July 29, 2025 Dr. Anastacio Scruggs MD Nurse Practitioner Active Start: July 29, 2025 Team Status: Active Member Role/Relationship Status Dates Dr. Olivier Olmstead MD Primary care physician Active Start: July 29, 2025 Dr. Anastacio Scruggs MD Referring Provider Active Start: July 29, 2025 Dr. Anatsacio Scruggs MD Nurse Practitioner Active Start: July 29, 2025 Dr. Mario Marie DO Attending physician Active Start: July 29, 2025 Team Status: Inactive Member Role/Relationship Status Dates Dr. Olivier Olmstead MD Primary care physician Active Start: August 05, 2025 End: August 05, 2025 Dr. Olivier Olmstead MD Referring Provider Active Start: August 05, 2025 End: August 05, 2025 Dr. Anastacio Scruggs MD Attending physician Active Start: August 05, 2025 End: August 05, 2025 Team Status: Inactive Member Role/Relationship Status Dates Dr. Olivier Olmstead MD Primary care physician Active Start: May 18, 2025 End: May 18, 2025 Dr. Olivier Olmstead MD Referring Provider Active Start: May 18, 2025 End: May 18, 2025 JAGRUTI Hernandes Attending physician Active S tart: May 18, 2025 End: May 18, 2025 Team Status: Inactive Member Role/Relationship Status Dates Dr. Olivier Olmstead MD Primary care physician Active Start: June 02, 2025 End: June 02, 2025 Dr. Olivier Olmstead MD Attending physician Active Start: June 02, 2025 End: June 02, 2025 Dr. Olivier Olmstead MD Referring Provider Active Start: June 02, 2025 End: June 02, 2025 Team Status: Inactive Member Role/Relationship Status Dates Dr. Olivier Olmstead MD Primary care physician Active Start: June 07, 2025 End: June 08, 2025 Dr. Carlos Darnell DO Attending physician Active Start: June 07, 2025 End: June 08, 2025 Dr. Carlos Darnell DO Referring Provider Active Start: June 07, 2025 End: June 08, 2025 Dr. Carlos Darnell DO Emergency Department Physician Active Start: June 07, 2025 End: June 08, 2025 Team Status: Inactive Member Role/Relationship Status Dates Dr. Olivier Olmstead MD Primary care physician Active Start: June 11, 2025 End: June 11, 2025 JAGRUTI Hernandes Attending physician Active S tart: June 11, 2025 End: June 11, 2025 JAGRUTI Hernandes Referring Provider Active St art: June 11, 2025 End: June 11, 2025 Team Status: Active Member Role/Relationship Status Dates Dr. Olivier Olmstead MD Primary care physician Active Start: June 11, 2025 Dr. Jose Gomez MD Attending physician Active Start: June 11, 2025 Team Status: Active Member Role/Relationship Status Dates Dr. Olivier Olmstead MD Primary care physician Active Start: June 11, 2025 Dr. Jose Gomez MD Attending physician Active Start: June 11, 2025 JAGRUTI Hernandes Referring Provider Active St art: June 11, 2025 Team Status: Active Member Role/Relationship Status Dates Dr. Olivier Olmstead MD Primary care physician Active Start: June 23, 2025 Dr. Dewayne Vázquez , Emergency Departme nt Physician Active Start: June 23, 2025 Dr. Garo Monzon , DO Admitting physician Active Start: June 23, 2025 Dr. Garo Monzon , Attending physician Active Start: June 23, 2025 Dr. Garo Monzon , Nurse Practitioner Active Start: June 23, 2025 Dr. Tristen Lema MD Nurse Practitioner Active St art: June 23, 2025 Dr. Donnell Matamoros MD Nurse Practitioner Active S tart: June 23, 2025 Dr. Lyn Lamas MD Nurse Practitioner Active S tart: June 23, 2025 Dr. Viki Miranda MD Nurse Practitioner Active Start: June 23, 2025 Dr. Page Underwood MD Nurse Practitioner Active Start: June 23, 2025 Dr. Killian Rivera MD Nurse Practitioner Active Start: June 23, 2025 Dr. Ernesto Dudley MD Nurse Practitioner Active Start: June 23, 2025 Dr. Jose Gomez MD Nurse Practitioner Active S tart: June 23, 2025 Dr. Garo Delcid , Nurse Practitioner Active Start: June 23, 2025 Dr. James Denis MD Nurse Practitioner Active Start: June 23, 2025 Dr. Anastacio Scruggs MD Nurse Practitioner Active Start: June 23, 2025 Dr. Clayton Pearson MD Nurse Practitioner Active Start: June 23, 2025 Dr. Lily Andrade MD Nurse Practitioner Active S tart: June 23, 2025 Dr. Asim Ruiz MD Nurse Practitioner Active Start: June 23, 2025 Dr. Jose Mccall MD Nurse Practitioner Active Start: June 23, 2025 Jordon Saunders INSTALLATION SUPERINTENDENT, INSTALLATION SUPERINTENDENT-C Nurse Practitioner Active S tart: June 23, 2025 Sondra Bhatia PA, PA Nurse Practitioner Active Start: June 23, 2025 JAGRUTI Hernandes Nurse Practitioner Active St art: June 23, 2025 Team Status: Active Member Role/Relationship Status Dates Dr. Olivier Olmstead MD Primary care physician Active Start: June 24, 2025 Dr. Dewayne Vázquez , Emergency Departme nt Physician Active Start: June 24, 2025 Dr. Garo Monzon , DO Admitting physician Active Start: June 24, 2025 Dr. Garo Monzon , DO Nurse Practitioner Active Start: June 24, 2025 Dr. Tristen Lema MD Nurse Practitioner Active St art: June 24, 2025 Dr. Donnell Matamoros MD Nurse Practitioner Active S tart: June 24, 2025 Dr. Lyn Lamas MD Nurse Practitioner Active S tart: June 24, 2025 Dr. Viki Miranda MD Nurse Practitioner Active Start: June 24, 2025 Dr. Page Underwood MD Nurse Practitioner Active Start: June 24, 2025 Dr. Killian Rivera MD Nurse Practitioner Active Start: June 24, 2025 Dr. Ernesto Dudley MD Nurse Practitioner Active Start: June 24, 2025 Dr. Jose Gomez MD Nurse Practitioner Active S tart: June 24, 2025 Dr. Garo Delcid , DO Nurse Practitioner Active Start: June 24, 2025 Dr. James Denis MD Nurse Practitioner Active Start: June 24, 2025 Dr. Anastacio Scruggs MD Nurse Practitioner Active Start: June 24, 2025 Dr. Clayton Pearson MD Nurse Practitioner Active Start: June 24, 2025 Dr. Lily Andrade MD Nurse Practitioner Active S tart: June 24, 2025 Dr. Asim Ruiz MD Nurse Practitioner Active Start: June 24, 2025 Dr. Jose Mccall MD Nurse Practitioner Active Start: June 24, 2025 Jordon Saunders INSTALLATION SUPERINTENDENT, INSTALLATION SUPERINTENDENT-C Nurse Practitioner Active S tart: June 24, 2025 Sondra Bhatia PA, PA Nurse Practitioner Active Start: June 24, 2025 JAGRUTI Hernandes Nurse Practitioner Active St art: June 24, 2025 Dr. Juan J Gerardo MD Attending physician Active Start: June 24, 2025 Dr. Juan J Gerardo MD Nurse Practitioner Active Start: June 24, 2025 Team Status: Inactive Member Role/Relationship Status Dates Dr. Olivier Olmstead MD Primary care physician Active Start: June 24, 2025 End: June 28, 2025 Dr. Dewayne Vázquez , DO Emergency Departme nt Physician Active Start: June 24, 2025 End: June 28, 2025 Dr. Garo Monzon , DO Admitting physician Active Start: June 24, 2025 End: June 28, 2025 Dr. Garo Monzon , Nurse Practitioner Active Start: June 24, 2025 End: June 28, 2025 Dr. Tristen Lema MD Nurse Practitioner Active St art: June 24, 2025 End: June 28, 2025 Dr. Donnell Matamoros MD Nurse Practitioner Active S tart: June 24, 2025 End: June 28, 2025 Dr. Lyn Lamas MD Nurse Practitioner Active S tart: June 24, 2025 End: June 28, 2025 Dr. Viki Miranda MD Nurse Practitioner Active Start: June 24, 2025 End: June 28, 2025 Dr. Page Underwood MD Nurse Practitioner Active Start: June 24, 2025 End: June 28, 2025 Dr. Killian Rivera MD Nurse Practitioner Active Start: June 24, 2025 End: June 28, 2025 Dr. Ernesto Dudley MD Nurse Practitioner Active Start: June 24, 2025 End: June 28, 2025 Dr. Jose Gomez MD Nurse Practitioner Active S tart: June 24, 2025 End: June 28, 2025 Dr. Garo Delcid DO Nurse Practitioner Active Start: June 24, 2025 End: June 28, 2025 Dr. James Denis MD Nurse Practitioner Active Start: June 24, 2025 End: June 28, 2025 Dr. Anastacio Scruggs MD Nurse Practitioner Active Start: June 24, 2025 End: June 28, 2025 Dr. Clayton Pearson MD Nurse Practitioner Active Start: June 24, 2025 End: June 28, 2025 Dr. Lily Andrade MD Nurse Practitioner Active S tart: June 24, 2025 End: June 28, 2025 Dr. Asim Ruiz MD Nurse Practitioner Active Start: June 24, 2025 End: June 28, 2025 Dr. Jose Mccall MD Nurse Practitioner Active Start: June 24, 2025 End: June 28, 2025 Jordon Saunders INSTALLATION SUPERINTENDENT, INSTALLATION SUPERINTENDENT-C Nurse Practitioner Active S tart: June 24, 2025 End: June 28, 2025 Sondra Bhatia PA, PA Nurse Practitioner Active Start: June 24, 2025 End: June 28, 2025 JAGRUTI Hernandes Nurse Practitioner Active St art: June 24, 2025 End: June 28, 2025 Dr. Juan J Gerardo MD Attending physician Active Start: June 24, 2025 End: June 28, 2025 Team Status: Active Member Role/Relationship Status Dates Dr. Olivier Olmstead MD Primary care physician Active Start: June 24, 2025 Dr. Dewayne Vázquez DO Emergency Departme nt Physician Active Start: June 24, 2025 Dr. Garo Monzon DO Admitting physician Active Start: June 24, 2025 Dr. Garo Monzon DO Nurse Practitioner Active Start: June 24, 2025 Dr. Tristen Lema MD Nurse Practitioner Active St art: June 24, 2025 Dr. Donnell Matamoros MD Nurse Practitioner Active S tart: June 24, 2025 Dr. Lyn Lamas MD Nurse Practitioner Active S tart: June 24, 2025 Dr. Viki Miranda MD Nurse Practitioner Active Start: June 24, 2025 Dr. Page Underwood MD Nurse Practitioner Active Start: June 24, 2025 Dr. Killian Rivera MD Nurse Practitioner Active Start: June 24, 2025 Dr. Ernesto Dudley MD Nurse Practitioner Active Start: June 24, 2025 Dr. Jose Gomez MD Nurse Practitioner Active S tart: June 24, 2025 Dr. Garo Delcid DO Nurse Practitioner Active Start: June 24, 2025 Dr. James Denis MD Attending physician Active Start: June 24, 2025 Dr. James Denis MD Nurse Practitioner Active Start: June 24, 2025 Dr. Anastacio Scruggs MD Nurse Practitioner Active Start: June 24, 2025 Dr. Clayton Pearson MD Nurse Practitioner Active Start: June 24, 2025 Dr. Lily Andrade MD Nurse Practitioner Active S tart: June 24, 2025 Dr. Asim Ruiz MD Nurse Practitioner Active Start: June 24, 2025 Dr. Jose Mccall MD Nurse Practitioner Active Start: June 24, 2025 Jordon Saunders INSTALLATION SUPERINTENDENT, INSTALLATION SUPERINTENDENT-C Nurse Practitioner Active S tart: June 24, 2025 Sondra Bhatia PA, PA Nurse Practitioner Active Start: June 24, 2025 JAGRUTI Hernandes Nurse Practitioner Active St art: June 24, 2025 Dr. Juan J Gerardo MD Nurse Practitioner Active Start: June 24, 2025 Team Status: Active Member Role/Relationship Status Dates Dr. Olivier Olmstead MD Primary care physician Active Start: June 25, 2025 Dr. Dewayne Vázquez , Emergency Departme nt Physician Active Start: June 25, 2025 Dr. Garo Monzon DO Admitting physician Active Start: June 25, 2025 Dr. Garo Monzon DO Nurse Practitioner Active Start: June 25, 2025 Dr. Tristen Lema MD Nurse Practitioner Active St art: June 25, 2025 Dr. Donnell Matamoros MD Nurse Practitioner Active S tart: June 25, 2025 Dr. Lyn Lamas MD Nurse Practitioner Active S tart: June 25, 2025 Dr. Viki Miranda MD Nurse Practitioner Active Start: June 25, 2025 Dr. Page Underwood MD Nurse Practitioner Active Start: June 25, 2025 Dr. Killian Rivera MD Nurse Practitioner Active Start: June 25, 2025 Dr. Ernesto Dudley MD Nurse Practitioner Active Start: June 25, 2025 Dr. Jose Gomez MD Nurse Practitioner Active S tart: June 25, 2025 Dr. Garo Delcid DO Nurse Practitioner Active Start: June 25, 2025 Dr. James Denis MD Nurse Practitioner Active Start: June 25, 2025 Dr. Anastacio Scruggs MD Nurse Practitioner Active Start: June 25, 2025 Dr. Clayton Pearson MD Nurse Practitioner Active Start: June 25, 2025 Dr. Lily Andrade MD Nurse Practitioner Active S tart: June 25, 2025 Dr. Asim Ruiz MD Nurse Practitioner Active Start: June 25, 2025 Dr. Jose Mccall MD Nurse Practitioner Active Start: June 25, 2025 Jordon Saunders INSTALLATION SUPERINTENDENT, INSTALLATION SUPERINTENDENT-C Nurse Practitioner Active S tart: June 25, 2025 Sondra Bhatia PA, PA Nurse Practitioner Active Start: June 25, 2025 JAGRUTI Hernandes Nurse Practitioner Active St art: June 25, 2025 Dr. Juan J Gerardo MD Attending physician Active Start: June 25, 2025 Dr. Juan J Gerardo MD Nurse Practitioner Active Start: June 25, 2025 Team Status: Active Member Role/Relationship Status Dates Dr. Olivier Olmstead MD Primary care physician Active Start: June 26, 2025 Dr. Dewayne Vázquez , DO Emergency Departme nt Physician Active Start: June 26, 2025 Dr. Garo Monzon , Admitting physician Active Start: June 26, 2025 Dr. Garo Monzon , Nurse Practitioner Active Start: June 26, 2025 Dr. Tristen Lema MD Nurse Practitioner Active St art: June 26, 2025 Dr. Donnell Matamoros MD Nurse Practitioner Active S tart: June 26, 2025 Dr. Lyn Lamas MD Nurse Practitioner Active S tart: June 26, 2025 Dr. Viki Miranda MD Nurse Practitioner Active Start: June 26, 2025 Dr. Page Underwood MD Nurse Practitioner Active Start: June 26, 2025 Dr. Killian Rivera MD Nurse Practitioner Active Start: June 26, 2025 Dr. Ernesto Dudley MD Nurse Practitioner Active Start: June 26, 2025 Dr. Jose Gomez MD Nurse Practitioner Active S tart: June 26, 2025 Dr. Garo Delcid , Nurse Practitioner Active Start: June 26, 2025 Dr. James Denis MD Nurse Practitioner Active Start: June 26, 2025 Dr. Anastacio Scruggs MD Nurse Practitioner Active Start: June 26, 2025 Dr. Clayton Pearson MD Nurse Practitioner Active Start: June 26, 2025 Dr. Lily Andrade MD Nurse Practitioner Active S tart: June 26, 2025 Dr. Asim Ruiz MD Nurse Practitioner Active Start: June 26, 2025 Dr. Jose Mccall MD Nurse Practitioner Active Start: June 26, 2025 Jordon Saunders INSTALLATION SUPERINTENDENT, INSTALLATION SUPERINTENDENT-C Nurse Practitioner Active S tart: June 26, 2025 Sondra Bhatia PA, PA Nurse Practitioner Active Start: June 26, 2025 JAGRUTI Hernandes Nurse Practitioner Active St art: June 26, 2025 Dr. Jaun J Gerardo MD Attending physician Active Start: June 26, 2025 Dr. Juan J Gerardo MD Nurse Practitioner Active Start: June 26, 2025 Team Status: Active Member Role/Relationship Status Dates Dr. Olivier Olmstead MD Primary care physician Active Start: June 27, 2025 Dr. Dewayne Vázquez , Emergency Departme nt Physician Active Start: June 27, 2025 Dr. Garo Monzon DO Admitting physician Active Start: June 27, 2025 Dr. Garo Monzon DO Nurse Practitioner Active Start: June 27, 2025 Dr. Tristen Lema MD Nurse Practitioner Active St art: June 27, 2025 Dr. Donnell Matamoros MD Nurse Practitioner Active S tart: June 27, 2025 Dr. Lyn Lamas MD Nurse Practitioner Active S tart: June 27, 2025 Dr. Viki Miranda MD Nurse Practitioner Active Start: June 27, 2025 Dr. Page Underwood MD Nurse Practitioner Active Start: June 27, 2025 Dr. Killian Rivera MD Nurse Practitioner Active Start: June 27, 2025 Dr. Ernesto Dudley MD Nurse Practitioner Active Start: June 27, 2025 Dr. Jose Gomez MD Nurse Practitioner Active S tart: June 27, 2025 Dr. Garo Delcid DO Nurse Practitioner Active Start: June 27, 2025 Dr. James Denis MD Nurse Practitioner Active Start: June 27, 2025 Dr. Anastacio Scruggs MD Nurse Practitioner Active Start: June 27, 2025 Dr. Clayton Pearson MD Nurse Practitioner Active Start: June 27, 2025 Dr. Lily Andrade MD Nurse Practitioner Active S tart: June 27, 2025 Dr. Asim Ruiz MD Nurse Practitioner Active Start: June 27, 2025 Dr. Jose Mccall MD Nurse Practitioner Active Start: June 27, 2025 Jordno Saunders INSTALLATION SUPERINTENDENT, INSTALLATION SUPERINTENDENT-C Nurse Practitioner Active S tart: June 27, 2025 Sondra Bhatia PA, PA Nurse Practitioner Active Start: June 27, 2025 JAGRUTI Hernandes Nurse Practitioner Active St art: June 27, 2025 Dr. Juan J Gerardo MD Attending physician Active Start: June 27, 2025 Dr. Juan J Gerardo MD Nurse Practitioner Active Start: June 27, 2025 Team Status: Active Member Role/Relationship Status Dates Dr. Olivier Olmstead MD Primary care physician Active Start: June 28, 2025 Dr. Dewayne Vázquez , Emergency Departme nt Physician Active Start: June 28, 2025 Dr. Garo Monzon DO Admitting physician Active Start: June 28, 2025 Dr. Garo Monzon DO Nurse Practitioner Active Start: June 28, 2025 Dr. Tristen Lema MD Nurse Practitioner Active St art: June 28, 2025 Dr. Donnell Matamoros MD Nurse Practitioner Active S tart: June 28, 2025 Dr. Lyn Lamas MD Nurse Practitioner Active S tart: June 28, 2025 Dr. Viki Miranda MD Nurse Practitioner Active Start: June 28, 2025 Dr. Page Underwood MD Nurse Practitioner Active Start: June 28, 2025 Dr. Killian Rivera MD Nurse Practitioner Active Start: June 28, 2025 Dr. Ernesto Dudley MD Nurse Practitioner Active Start: June 28, 2025 Dr. Jose Gomez MD Nurse Practitioner Active S tart: June 28, 2025 Dr. Garo Delcid , Nurse Practitioner Active Start: June 28, 2025 Dr. James Denis MD Nurse Practitioner Active Start: June 28, 2025 Dr. Anastacio Scruggs MD Nurse Practitioner Active Start: June 28, 2025 Dr. Clayton Pearson MD Nurse Practitioner Active Start: June 28, 2025 Dr. Lily Andrade MD Nurse Practitioner Active S tart: June 28, 2025 Dr. Asim Ruiz MD Nurse Practitioner Active Start: June 28, 2025 Dr. Jose Mccall MD Nurse Practitioner Active Start: June 28, 2025 Jordon Saunders INSTALLATION SUPERINTENDENT, INSTALLATION SUPERINTENDENT-C Nurse Practitioner Active S tart: June 28, 2025 Sondra Bhatia PA, PA Nurse Practitioner Active Start: June 28, 2025 JAGRUTI Hernandes Nurse Practitioner Active St art: June 28, 2025 Dr. Juan J Gerardo MD Attending physician Active Start: June 28, 2025 Dr. Juan J Gerardo MD Nurse Practitioner Active Start: June 28, 2025 Team Status: Inactive Member Role/Relationship Status Dates Dr. Olivier Olmstead MD Primary care physician Active Start: July 03, 2025 End: July 03, 2025 Dr. Olivier Olmstead MD Referring Provider Active Start: July 03, 2025 End: July 03, 2025 Arnie Garcia , PA Attending physician Active S tart: July 03, 2025 End: July 03, 2025 Team Status: Inactive Member Role/Relationship Status Dates Dr. Olivier Olmstead MD Primary care physician Active Start: July 16, 2025 End: July 16, 2025 Arnieroberto Garcia , PA Attending physician Active S tart: July 16, 2025 End: July 16, 2025 Arnieroberto Garcia , PA Referring Provider Active St art: July 16, 2025 End: July 16, 2025 Team Status: Active Member Role/Relationship Status Dates Dr. Olivier Olmstead MD Primary care physician Active Start: July 16, 2025 Dr. Jose Gomez MD Attending physician Active Start: July 16, 2025 Arnie Radha , PA Referring Provider Active St art: July 16, 2025 Team Status: Inactive Member Role/Relationship Status Dates Dr. Olivier Olmstead MD Primary care physician Active Start: July 21, 2025 End: July 21, 2025 Dr. Olivier Olmstead MD Referring Provider Active Start: July 21, 2025 End: July 21, 2025 Arnie Garcia , PA Attending physician Active S tart: July 21, 2025 End: July 21, 2025 Team Status: Inactive Member Role/Relationship Status Dates Dr. Olivier Olmstead MD Primary care physician Active Start: July 21, 2025 End: July 21, 2025 Arnieroberto Garcia , PA Attending physician Active S tart: July 21, 2025 End: July 21, 2025 Team Status: Inactive Member Role/Relationship Status Dates Dr. Olivier Olmstead MD Primary care physician Active Start: July 29, 2025 End: July 29, 2025 Dr. Anastacio Scruggs MD Attending physician Active Start: July 29, 2025 End: July 29, 2025 Dr. Anastacio Scruggs MD Referring Provider Active Start: July 29, 2025 End: July 29, 2025 Team Status: Active Member Role/Relationship Status Dates Dr. Olivier Olmstead MD Primary care physician Active Start: July 29, 2025 Dr. Anastacio Scruggs MD Attending physician Active Start: July 29, 2025 Dr. Anastacio Scruggs MD Referring Provider Active Start: July 29, 2025 Dr. Anastacio Scruggs MD Nurse Practitioner Active Start: July 29, 2025 Team Status: Active Member Role/Relationship Status Dates Dr. Olivier Olmstead MD Primary care physician Active Start: July 29, 2025 Dr. Anastacio Scruggs MD Referring Provider Active Start: July 29, 2025 Dr. Anastacio Scruggs MD Nurse Practitioner Active Start: July 29, 2025 Dr. Mario Marie DO Attending physician Active Start: July 29, 2025 Team Status: Inactive Member Role/Relationship Status Dates Dr. Olivier Olmstead MD Primary care physician Active Start: August 05, 2025 End: August 05, 2025 Dr. Olivier Olmstead MD Referring Provider Active Start: August 05, 2025 End: August 05, 2025 Dr. Anastacio Scruggs MD Attending physician Active Start: August 05, 2025 End: August 05, 2025 Team Status: Inactive Member Role/Relationship Status Dates Dr. Olivier Olmstead MD Primary care physician Active Start: August 07, 2025 End: August 07, 2025 Dr. Olivier Olmstead MD Referring Provider Active Start: August 07, 2025 End: August 07, 2025 Dr. Asim Ruiz MD Attending physician Active Start: August 07, 2025 End: August 07, 2025 Team Status: Inactive Member Role/Relationship Status Dates Dr. Olivier Olmstead MD Primary care physician Active Start: August 17, 2025 End: August 17, 2025 Dr. Olivier Olmstead MD Referring Provider Active Start: August 17, 2025 End: August 17, 2025 Ophelia Diana NP, INSTALLATION SUPERINTENDENT-C Attending physician Active Start: August 17, 2025 End: August 17, 2025 INFORMATION SOURCE (unrecogn ized section and content) DATE CREATED AUTHOR 09/08/2025 [facility] FOR RECORDS PERTAINING TO PATIENTS WHO [...] BE BASED ON THE PRIMARY CLINICAL RECORDS. [facility] [employer] [facility]. provides no warranty or guarantee of the accuracy or completeness of information in this document.
== END | disposition home or self-care (01) ==
LOC: SL 19:48
PROVIDERS: PCP Family Medicine Geriatric Medicine; Referring Provider Student in an Organized Health Care Education/Training Program; Visit Provider Student in an Organized Health Care Education/Training Program
DX: G47.30 Sleep apnea, unspecified (principal)
CPT/HCPCS: 95810

== ENCOUNTER → 2025-09-30 | Outpatient (CLI) | payer MEDICARE, SELFPAY ==
[2025-09-30 15:06] LABS: Mucous, Urine 0 SEEN /hpf (<or=2+)
--- NOTE | 2025-09-30 15:22 | RAD_ITS ---
PROCEDURE: L/S SPINE MIN 4 VIEWS 09/30/2025 REASON FOR EXAM: LOW BACK PAIN TECHNIQUE: Procedure Code: RADSPLS Modality: DX Procedure: L/S SPINE MIN 4 VIEWS COMPARISON: June 02, 2025 FINDINGS: Lumbar vertebral body height is grossly maintained. There is dextrocurvature of the upper lumbar region with less than 10 degrees of variance, similar to the prior. There is loss of disc height at each level. There is grade 1 retrolisthesis at L2-3, 0.3 cm. There is moderate facet sclerosis. Osteopenia is noted. Vascular calcifications are present. RAD/L/S Spine Min 4 Views IMPRESSION: There is loss of disc height at each level. There is grade 1 retrolisthesis at L2-3, 0.3 cm. Reading Location: [place]
[2025-09-30 15:44] LABS: Color, Urine Yellow (Yellow); Glucose, Dipstick Normal (Normal); Ketone-Dipstick 5 mg/dl (Negative); Leukocyte Esterase-Dipstick 500 /ul (Negative); Nitrite-Dipstick Positive (Negative); Occult Blood-Urine 10 /ul (Negative); Protein-Dipstick 30 mg/dl (Negative); Specific Gravity, Urine 1.020 (1.002-1.030); Urine Bilirubin Dipstick Negative (Negative)
[2025-09-30 15:51] LABS: Hematocrit 43.6 % (37-47); Hemoglobin 13.9 g/dL (12.0-15.0); Immature Granulocytes Count 0.010 X10^3/uL (0.0-0.0); Mean Corp Hgb Conc 31.9 g/dL (32-36); Mean Corpuscular Volume 101.9 fL (81-99); Mean Platelet Vol. 11.1 fl (6.2-12.0); NRBC Flagged by Analyzer 0 % (0-5); Platelet Count 236 K/mm3 (150-450); RBC Distribution Width CV 12.6 % (11.6-14.6); RBC Distribution Width SD 47.2 fl (35.1-43.9); Red Blood Count 4.28 M/mm3 (4.2-5.4); White Blood Count 4.9 K/mm3 (4.4-11.0)
[2025-09-30 16:02] LABS: AST(SGOT) 43 U/L (<=31); Alanine Aminotransfer ALT/SGPT 27 U/L (<=34); Albumin, Serum 4.1 g/dL (3.4-4.8); Alkaline Phosphatase 74 U/L (35-104); Anion Gap 13 (5-15); BUN < 2 mg/dL (4-19); BUN/Creat Ratio UNABLE TO CALCULATE RATIO (10-20); Calcium,Total 8.8 mg/dL (7.6-11.0); Carbon Dioxide 23.1 mmol/L (21.0-32.0); Chloride 106 mmol/L (98-108); Globulin 2.4 g/dL (2.2-4.2); Glucose 93 mg/dL (70-99); Potassium 4.1 mmol/L (3.3-5.1)
[2025-09-30 16:44] LABS: Calcium Oxalate Crystals Ur 2+ /hpf (<or=2+)
[2025-09-30 16:46] LABS: Red Blood Cells-Urine 0-5 SEEN /hpf (0-5); Transitional Epithelial - Ur 0-5 SEEN /hpf (0-5)
[2025-09-30 16:47] LABS: Squamous Epithelial Cells - UA 0-5 SEEN /hpf (5-10)
[2025-09-30 23:14] LABS: Xtra Tube Kwok EXTRA TUBE
== END | disposition home or self-care (01) ==
PROVIDERS: PCP Family Medicine Geriatric Medicine; Referring Provider Family Medicine Geriatric Medicine; Visit Provider Family Medicine Geriatric Medicine
DX: I10 Essential (primary) hypertension (principal); N39.0 Urinary tract infection, site not specified; M54.50 Low back pain, unspecified
CPT/HCPCS: 36415; 72110; 80053; 81001; 85025; 87086

== ENCOUNTER 2025-10-20 13:22 | Emergency (ER) | payer MEDICARE, SELFPAY ==
[2025-10-20 13:24] VITALS: BP 144/62; PULSE 89; RESP 18; TEMP 36.8; O2SAT 93
--- NOTE | 2025-10-20 13:45 | RAD_ITS ---
PROCEDURE: LEFT KNEE 4 OR MORE VIEWS 10/20/2025 REASON FOR EXAM: INJURY TECHNIQUE: Procedure Code: RADKN Modality: DX Procedure: KNEE 4 OR MORE VIEWS COMPARISON: No relevant prior. FINDINGS: Bones: No fractures or other osseous abnormalities. Joints: No subluxations or dislocations. Soft tissues: Unremarkable. RAD/Knee 4 or More Views IMPRESSION: Normal left knee. Reading Location: [place] [id number]
--- NOTE | 2025-10-20 13:45 | RAD_ITS ---
PROCEDURE: FOOT MIN 3 VIEWS 10/20/2025 REASON FOR EXAM: INJURY TECHNIQUE: Procedure Code: RADFO Modality: DX Procedure: FOOT MIN 3 VIEWS COMPARISON: No relevant prior FINDINGS: Bones: Marked osteopenia. Suspicion of an acute fracture versus old traumatic deformity involving the proximal phalanx of the 5th toe. Joints: No subluxations or dislocations. Soft tissues: Soft tissue swelling adjacent to the 5th metatarsophalangeal joint. RAD/Foot min 3 Views IMPRESSION: Suspicion of recent fracture versus old trauma involving the proximal phalanx o f the 5th toe. Correlation with point tenderness recommended. Suspect soft tissue swelling in this area. Marked osteopenia. Reading Location: [place] [id number]
[2025-10-20 13:48] VITALS: BMI 30.6
--- NOTE | 2025-10-20 13:48 | RAD_ITS ---
PROCEDURE: KNEE 4 OR MORE VIEWS 10/20/2025 REASON FOR EXAM: INJURY TECHNIQUE: Procedure Code: RADKN Modality: DX Procedure: KNEE 4 OR MORE VIEWS Laterality: Right COMPARISON: None available. FINDINGS: Bones: No fracture. No suspicious bone lesion. Joints: Moderate degenerative changes. Effusion: No effusion. Soft tissues: Soft tissues are unremarkable. Other: A single syndesmotic screw is seen through the proximal right tibia. RAD/Knee 4 or More Views IMPRESSION: DEGENERATIVE OSTEOARTHROSIS. NO ACUTE FINDINGS. Reading [facility]
--- NOTE | 2025-10-20 13:50 | RAD_ITS ---
PROCEDURE: ANKLE MIN 3 VIEWS 10/20/2025 REASON FOR EXAM: INJURY TECHNIQUE: Procedure Code: RADANK Modality: DX Procedure: ANKLE MIN 3 VIEWS COMPARISON: No relevant prior FINDINGS: Bones: No fractures or other osseous abnormalities. Osteopenia. Joints: No subluxations or dislocations. Soft tissues: Unremarkable. RAD/Ankle min 3 Views IMPRESSION: Osteopenia. No acute fractures or other osseous abnormalities. Reading Location: [place] [id number]
--- NOTE | 2025-10-20 15:26 | EX.ED.GENINJ ---
HPI History of Present Illness Chief Complaint: Fall Informant: patient Narrative Narrative: 75-year-old female presenting to the emergency room with bilateral knee and right ankle pain. Patient states that she fell yesterday when she lost her balance while bending over and attempting to go over some stairs. States she came down onto her bent knee. She notes bruising and some swelling of the bilateral knees right greater than left but also of the lateral right ankle and extending down into the foot. Patient is on Eliquis. She is adamant that she did not hit her head. She has no neck pain. She has been able to bear weight. [facility] Medical History Anxiety Osteoporosis Kidney stones Former smoker Atrial fibrillation Muscular dystrophy Paroxysmal atrial tachycardia Non-rheumatic mitral regurgitation Nonrheumatic mitral (valve) prolapse Paroxysmal atrial fibrillation History of kidney stones Left bundle branch block Rhlezja-Qgiyl-Rcahd disease Hypotension Depression Home Medications ?Medication ?Instructions ?Recorded ?Last Taken ?Type levothyroxine 125 mcg tablet 125 mcg PO QODAY 11/28/23 06/22/25 History levothyroxine 112 mcg tablet 112 mcg PO QODAY 04/20/25 07/29/25 History apixaban 5 mg tablet (Eliquis) 5 mg PO BID 06/23/25 07/29/25 History citalopram 10 mg tablet 10 mg PO DAILY 06/23/25 07/29/25 History cyclobenzaprine 10 mg tablet 10 mg PO DAILY PRN pain 06/23/25 Unknown History amiodarone 200 mg tablet 200 mg PO DAILY 30 days #30 tabs 07/21/25 07/29/25 Rx lisinopril 2.5 mg tablet 2.5 mg PO QDAY 30 days #30 tabs 08/10/25 Unknown Rx Allergy/AdvReac Type Severity Reaction Status Date / Time prednisone Allergy Intermediate Rash Verified 10/20/25 13:25 ciprofloxacin AdvReac Intermediate Nausea/Vom/ Verified 10/20/25 13:25 Diarrhea adhesive AdvReac Rash Verified 10/20/25 13:25 Family History Mother Hypertension Breast cancer Brother Colon cancer Sister Hypertension Daughter CAD (coronary artery disease) Father Colon cancer Surgical History Hx of thyroidectomy History of appendectomy History of lithotripsy (~10/2017) Hx of cholecystectomy H/O: section H/O: hysterectomy Hx of knee surgery Hx of foot surgery History of tonsillectomy Social History Smoking Status: Former smoker how long ago did patient quit smokin years ago alcohol intake: current alcohol intake frequency: a few times a month caffeine: Yes Type: coffee Number of servings: 2 ROS ROS ED Constitutional Constitutional ED: Denies chills or weight loss Eyes Eyes: Denies change in vision or diplopia ENT ENT ED: Denies ear pain, rhinorrhea or sore throat Cardiovascular Cardiovascular: Denies chest pain, orthopnea, palpitations or racing heartbeat Respiratory/Chest Respiratory/Chest: Denies cough, dyspnea or orthopnea Gastrointestinal Gastrointestinal: Denies abdominal pain, diarrhea, nausea or vomiting Genitourinary Genitourinary ED: Denies dysuria, hematuria or urinary frequency Musculoskeletal Musculoskeletal: Reports other Details: Bilateral knee right ankle pain ; Denies arthralgias, back pain, myalgias or neck pain Integumentary Denies abscess or rash Neurologic Neurologic: Denies headache(s) or weakness Psychiatric Psychiatric: Denies anxiety, depression, suicidal ideation or suicidal thoughts Endocrine Endocrinology: Denies polydipsia, polyphagia or polyuria Allergic/Immunologic Allergic/Immunologic ED: Denies mouth swelling, tongue swelling or urticaria EXAM Physical Exam Const Vital Signs: 10/20/25 13:24 10/20/25 13:46 Temperature 98.3 F Temperature Source Oral Pulse Rate 89 Respiratory Rate 18 Respiratory Effort Normal Non-Labored Respiratory Depth Normal Respiratory Pattern Normal Blood Pressure 144/62 H Blood Pressure Mean 89 Pulse Ox 93 Oxygen Delivery Method Room Air Room Air Positive well nourished and well developed General Appearance ED: well developed and NAD HEENT Reports normocephalic, head/scalp atraumatic and moist mucous membranes Eyes PERRL and EOMs intact bilaterally Neck no lymphadenopathy, supple and no JVD Resp normal respiratory effort and clear to auscultation bilaterally Cardio regular rate, regular rhythm and no murmurs GI normal to inspection, nondistended, normoactive bowel sounds and non-tender Palpation: soft Back/Spine no CVA tenderness and normal ROM Extremity Extremity Narrative: Patient has right greater than left knee swelling. There is bilateral ecchymosis. Extensor mechanisms are intact. There is a well-healed right knee surgical incision. There is no tibial shaft pain on the right. Lateral malleolus demonstrates swelling and tenderness on the right. There is ecchymosis extending from the ankle down onto the dorsum of the foot. Toes are without trauma. General Extremety ED: Negative for edema General Extremity: Negative for edema Neuro oriented x3 and CN's II-XII intact bilaterally Sensorium / Orientation: alert Motor Exam: strength 5/5 throughout Psych mental status grossly normal Mood & Affect: Negative for depressed or tearful Skin no rashes or lesions noted and no wounds MDM MDM MDM Narrative Medical decision making narrative: Differential diagnosis includes but not limited to fracture contusion sprain strain effusion tendon injury neurovascular injury My independent interpretation of the bilateral knee films is no acute fracture. My independent interpretation of the right ankle and foot films is no acute fracture. Please see radiologist read. Specifically on the foot. Patient has no tenderness of the fifth toe swelling or ecchymosis. Patient will use ice and rest. Compression as needed. Follow-up in 1 week if not improving Radiography Diagnostic Testing: Clinical Impression(s) from Imaging Studies Foot X-Ray 10/20/25 13:45 IMPRESSION: Suspicion of recent fracture versus old trauma involving the proximal phalanx of the 5th toe. Correlation with point tenderness recommended. Suspect soft tissue swelling in this area. Marked osteopenia. Reading Location: [place] [id number] Knee X-Ray 10/20/25 13:45 IMPRESSION: Normal left knee. Reading Location: [place] [id number] Knee X-Ray 10/20/25 13:48 IMPRESSION: DEGENERATIVE OSTEOARTHROSIS. NO ACUTE FINDINGS. [facility] Ankle X-Ray 10/20/25 13:50 IMPRESSION: Osteopenia. No acute fractures or other osseous abnormalities. Reading Location: [place] [id number] Discharge Plan Triage Chief Complaint: Fall Other Complaint: Lower Extremity Injury ED Provider: Nilson Vicente Dx/Rx/DC Orders Clinical Impression: Fall, Ankle sprain, Contusion of knee, Knee sprain Instructions: ED Contusion, Lower Extremity, ED Knee Sprain, ED Ankle Sprain (Adult) Prescriptions: No Action levothyroxine 125 mcg tablet 125 mcg PO QODAY Patient Comments: alternating with 112mcg Rx Instructions: qod amiodarone 200 mg tablet 200 mg PO DAILY 30 Days Qty: 30 3RF levothyroxine 112 mcg tablet 112 mcg PO QODAY Patient Comments: alternating with 125mcg cyclobenzaprine 10 mg tablet 10 mg PO DAILY PRN (Reason: pain) citalopram 10 mg tablet 10 mg PO DAILY Eliquis 5 mg tablet 5 mg PO BID lisinopril 2.5 mg tablet 2.5 mg PO QDAY 30 Days Qty: 30 11RF Primary Care Provider: Olivier Olmstead Chi Referrals: Olivier Olmstead Chi, MD [Primary Care Provider, Geriatrics] - 1 Week Print Language: Kyrgyz Disposition Disposition: Home, Self Care Discharge Date/Time: 10/20/25 15:09
== END 2025-10-20 15:09 | disposition home or self-care (01) ==
PROVIDERS: Emergency Provider Emergency Medicine; PCP Family Medicine Geriatric Medicine; Visit Provider Emergency Medicine
DX: S93.401A Sprain of unspecified ligament of right ankle, initial encounter (principal); I48.0 Paroxysmal atrial fibrillation; S83.91XA Sprain of unspecified site of right knee, initial encounter; S80.01XA Contusion of right knee, initial encounter; S80.02XA Contusion of left knee, initial encounter; W18.39XA Other fall on same level, initial encounter; Z79.01 Long term (current) use of anticoagulants; Z87.891 Personal history of nicotine dependence
CPT/HCPCS: 73564; 73610; 73630; 99283